=== PATIENT | male | born 1945 | race Caucasian/White ===

== ENCOUNTER → 2017-02-26 | Outpatient (CLI) | payer MEDICARE ==
--- NOTE | 2017-02-26 16:08 | XR ---
Abdomen HISTORY: Bilateral kidney stones, urinary tract infection View of the abdomen is submitted and correlated to prior CT urogram dated 09/03/2011 Multiple renal calculi are present over the right kidney, there are at least 7 calculi present. The l argest is a partial staghorn calculus in the midpole level and measures approximately 1.4 x 1.6 cm in size. Lower pole calculus measures approximately 5 mm. Additional calculi in the midpole measure jennifer roximately 6 to 7 mm and 3 to 4 mm. Surgical clips are present in the right upper quadrant. Probable phleboliths in the pelvis. Lung bases not entirely included on the exam. Question compression deformi ties in the thoracic lumbar spine, degenerative disc changes also present. IMPRESSION: Multiple right-sided renal calculi as described. Suspect osteoporotic compression fractur es. Postop changes.
== END | disposition home or self-care (01) ==
LOC: RADXRMAIN 14:38
PROVIDERS: ATTEND Physician Assistant
DX: N20.0 Calculus of kidney (principal); Z98.890 Other specified postprocedural states
CPT/HCPCS: 74000

== ENCOUNTER → 2021-09-18 | Outpatient (CLI) | payer MEDICARE ==
[2021-09-18 18:36] LABS: HCT 36.6 % (39.6-50.0); MCH 31.4 pg (27.0-32.0); MCHC 32.8 g/dL (32.0-37.0); MCV 95.8 fL (80.0-97.0); Mean Platelet Volume 10.4 fL (9.5-12.2); NRBC Per 100 WBC 0 /100 WBCS (0.0-0.0); Platelet Count 264 X 10*3/uL (140-440); RBC 3.82 X 10*6/uL (4.40-5.60); RDW 13.5 % (11.5-14.5); WBC 10.12 X 10*3/uL (4.50-10.00)
[2021-09-18 18:47] LABS: ALT 23 U/L (10-49); AST 21 U/L (14-35); African American GFR (CKD) 98.5 (60.0-200.0); BUN/Creat Ratio 19.19 Ratio (12.00-20.00); Blood Urea Nitrogen 15.6 mg/dL (9.0-27.0); Calcium 9.2 mg/dL (8.7-10.3); Carbon Dioxide 27.1 mmol/L (20.0-27.5); Chloride 100 mmol/L (96-109); Chol/HDL Ratio 3.29 Ratio; Glucose 96 mg/dL (70-110); LDL Cholesterol,Calculated 130.7 mg/dL (0.0-131.0); Potassium 4.4 mmol/L (3.5-5.5); Sodium 138 mmol/L (135-145)
== END | disposition home or self-care (01) ==
LOC: LABWHC1 10:24
PROVIDERS: ATTEND Internal Medicine Interventional Cardiology
DX: I25.810 Atherosclerosis of coronary artery bypass graft(s) without angina pectoris (principal); E78.2 Mixed hyperlipidemia
CPT/HCPCS: 36415; 80048; 80061; 84450; 84460; 85027

== ENCOUNTER 2022-02-11 20:10 | Inpatient (IN) | payer MEDICARE ==
[2022-02-11 21:10] LABS: Basophils % (A) 0 %; Eosinophils % (A) 0 %; HGB 9.1 gm/dL (13.0-17.5); Lymphocytes # (A) 1.2 k/uL (1.0-4.8); Lymphocytes % (A) 13 %; MCH 33.3 pg (25.0-35.0); MCHC 33.8 g/dL (31.0-37.0); MCV 98.5 fL (80.0-100.0); Macrocytosis Slight; Mean Platelet Volume 9.3; Monocytes # (A) 0.5 k/uL (0-1.0); Monocytes % (A) 6 %; Neutrophils # (A) 7.2 k/uL (1.3-7.7); Neutrophils % (A) 80 %; Platelet Count 229 k/uL (150-450); RBC 2.74 m/uL (4.30-5.90); RDW 15.3 % (11.5-15.5); WBC 9.1 k/uL (3.8-10.6)
[2022-02-11 21:24] LABS: Albumin 3.6 g/dL (3.5-5.0); Calcium 8.3 mg/dL (8.4-10.2); Potassium 4.3 mmol/L (3.5-5.1); Total Bilirubin 0.5 mg/dL (0.2-1.3); Total Protein 6.6 g/dL (6.3-8.2)
[2022-02-11] MEDS ORDERED: HEPARIN SODIUM 1,000 UN/ML (10ML VL) IV ONE (21:29)
[2022-02-11] MEDS ORDERED: HEPARIN SODIUM 1,000 UN/ML (10ML VL) IV PRN (21:29)
[2022-02-11] MEDS ORDERED: HEPARIN SOD,PORK IN 0.45% NACL 25,000 UNIT in 0.45% NACL 1 250ML.BAG IV SCH (21:30)
[2022-02-11 21:39] LABS: INR 1.1 (<1.2); Prothrombin Time 11.7 sec (9.0-12.0)
[2022-02-11 21:40] LABS: Partial Thromboplastin Time 33.1 sec (22.0-30.0)
--- NOTE | 2022-02-11 21:42 | XR ---
EXAMINATION TYPE: XR chest 2V DATE OF EXAM: 02/11/2022 9:24 PM COMPARISON: none TECHNIQUE: XR chest 2V Frontal and lateral views of the chest. CLINICAL INDICATION:Male, 76 years old with history of difficulty breathing; FINDINGS: Lungs/Pleura: Increased airspace opacities projecting the heart and over the spine on lateral. There is no evidence of pleural effusion, , or pneumothorax. Pulmonary vascularity: Pulmonary vascular congestion. Heart/mediastinum: Cardiomediastinal silhouette is enlarged. Musculoskeletal: No acute osseous pathology. Midline sternotomy wires are noted. IMPRESSION: Airspace opacities projecting the heart and more posteriorly correlate for pneumonia. A component of pulmonary vascular congestion may also be present. Correlate with BNP for congestive heart failure.
[2022-02-11] MEDS ORDERED: FUROSEMIDE 10 MG/ML 4 ML VIAL IV STA (22:19)
[2022-02-11] MEDS ORDERED: cefTRIAXone IN SWFI 1,000 MG/10 ML SYRINGE IVP STA (22:30)
[2022-02-11] MEDS ORDERED: NALOXONE 0.4 MG/ML 1 ML VIAL IV PRN (23:19)
[2022-02-11] MEDS ORDERED: IPRATROPIUM-ALBUTEROL 3 ML NEB INHALATION STA (23:24)
--- NOTE | 2022-02-11 23:43 | ED ---
General Adult HPI - General Chief complaint: Shortness of Breath Stated complaint: CHF, transfer Time Seen by Provider: 02/11/22 20:42 Source: patient, EMS Mode of arrival: EMS Limitations: no limitations - History of Present Illness Initial comments: Patient is a 76-year-old male hypertension, diabetes, and enlarged prostate presenting as a transfer from [facility] for CHF and acute kidney failure. Patient states that for the last 3 months he has had worsening shortness of breath, states that he is breathless after walking short periods of time and also while laying down. He admits to some intermittent chest pain. He admits to increased cough, no sputum production. No fever or chills. He denies abdominal pain, hemoptysis, hematochezia, melena. Patient is still producing urine, states that he has been urinating less frequently than usual. - Related Data Home Medications Medication Instructions Recorded Confirmed Acetaminophen [Tylenol 8 Hour] 650 mg PO Q6H PRN 02/11/22 02/11/22 Aspirin EC [Ecotrin Low Dose] 81 mg PO DAILY 02/11/22 02/11/22 Azelastine HCl 2 spray NASAL BID 02/11/22 02/11/22 Famotidine [Pepcid] 20 mg PO DAILY 02/11/22 02/11/22 HYDROcodone/APAP 5-325MG [[place] 1 tab PO BID PRN 02/11/22 02/11/22 5-325] Meclizine HCl [Antivert] 25 mg PO DAILY PRN 02/11/22 02/11/22 Metoprolol Tartrate [Lopressor] 50 mg PO BID 02/11/22 02/11/22 Nitroglycerin Sl Tabs [Nitrostat] 0.4 mg SL Q5M PRN 02/11/22 02/11/22 Potassium Chloride ER [K-Dur 10] 10 meq PO DAILY 02/11/22 02/11/22 Pravastatin Sodium [Pravachol] 40 mg PO HS 02/11/22 02/11/22 Repaglinide [Prandin] 1 mg PO HS 02/11/22 02/11/22 Tamsulosin HCl [Flomax] 0.4 mg PO BID 02/11/22 02/11/22 allopurinoL [Zyloprim] 100 mg PO BID 02/11/22 02/11/22 amLODIPine [Norvasc] 5 mg PO DAILY 02/11/22 02/11/22 hydroCHLOROthiazide [Hydrodiuril] 25 mg PO DAILY 02/11/22 02/11/22 metFORMIN HCL [Glucophage] 1,000 mg PO BID 02/11/22 02/11/22 Allergies Allergy/AdvReac Type Severity Reaction Status Date / Time duloxetine [From Cymbalta] Allergy Rash/Hives Verified 02/11/22 21:57 enalaprilat [From Vasotec] Allergy Unknown Verified 02/11/22 21:57 levofloxacin [From Levaquin] Allergy Rash/Hives Verified 02/11/22 21:57 saxagliptin [From Onglyza] Allergy Rash/Hives Verified 02/11/22 21:57 sulfamethoxazole Allergy Rash/Hives Verified 02/11/22 21:57 [From Bactrim] trimethoprim [From Bactrim] Allergy Rash/Hives Verified 02/11/22 21:57 Review of Systems ROS Statement: Those systems with pertinent positive or pertinent negative responses have been documented in the HPI. ROS Other: All systems not noted in ROS Statement are negative. Past Medical History Smoking Status: Never smoker Past Alcohol Use History: None Reported Past Drug Use History: None Reported General Exam Limitations: no limitations General appearance: alert, in distress (Short of breath) Head exam: Present: atraumatic, normocephalic, normal inspection Eye exam: Present: normal appearance Neck exam: Present: normal inspection Respiratory exam: Present: rales. Absent: wheezes, rhonchi, stridor Cardiovascular Exam: Present: regular rate, normal rhythm, normal heart sounds. Absent: systolic murmur, diastolic murmur, rubs, gallop, clicks Extremities exam: Absent: pedal edema Neurological exam: Present: alert, oriented X3, CN II-XII intact Psychiatric exam: Present: normal affect, normal mood Skin exam: Present: warm, dry, intact, normal color. Absent: rash Course Vital Signs 02/11/22 02/11/22 02/12/22 20:16 22:38 00:29 Temperature 97.7 F Pulse Rate 93 87 98 Respiratory 28 H 22 Rate Blood Pressure 157/84 149/78 Blood Pressure [Right Arm] O2 Sat by Pulse 91 L 93 L Oximetry Fraction of Inspired Oxygen (FIO2) 02/12/22 02/12/22 02/12/22 00:37 00:39 01:00 Temperature Pulse Rate 94 Respiratory 24 Rate Blood Pressure Blood Pressure 154/91 [Right Arm] O2 Sat by Pulse 100 Oximetry Fraction of 70 70 Inspired Oxygen (FIO2) 02/12/22 02/12/22 02:19 02:43 Temperature Pulse Rate Respiratory 23 Rate Blood Pressure Blood Pressure 145/89 [Right Arm] O2 Sat by Pulse 97 Oximetry Fraction of 50 50 Inspired Oxygen (FIO2) EKG Findings - EKG Comments: EKG Findings:: Atrial fibrillation rate of 88. QRS 89. QT 394. QTC 440. Left axis deviation. EKG was also interpreted by my attending Dr. Rapp. Medical Decision Making - Medical Decision Making Patient is a 76-year-old male presenting with chief complaint of difficulty breathing. Patient was transferred from [facility] for CHF and acute kidney failure, as majority of his physicians and specialists work out of [facility]. On examination patient is swallowing increased respiratory effort, rales are heard on auscultation. X-ray shows pulmonary vascular congestion and airspace opacities projecting over the heart and more po steriorly. BNP 40973. Clinical picture correlates with CHF, however patient is given one dose of Rocephin in the event that he also has concurrent pneumonia. Troponin 0.193, may be due to acute renal failure, BUN 65 creatinine 7.16 and GFR of 7. Patient is still producing urine, states that he urinated just prior to coming here. EKG showed atrial fibrillation, patient denies any history of A. fib or current use of blood thinners. Patient was started on heparin. Patient was started on BiPAP and given DuoNeb treatment. Calloway catheter was ordered to monitor output, patient is refusing at this time. Patient will be admitted for CHF and acute renal failure, I spoke with Leonora Benavides from [facility]. I spoke with Dr. Rodriguez who advised calloway catheter if retaining and will be on consult. I discussed this case in detail with my attending Dr. Rapp - Lab Data Result diagrams: 02/11/22 21:03 02/11/22 21:03 Lab Results 02/11/22 02/11/22 02/11/22 Range/Units 21:03 21:03 21:03 WBC 9.1 (3.8-10.6) k/uL RBC 2.74 L (4.30-5.90) m/uL Hgb 9.1 L (13.0-17.5) gm/dL Hct 27.0 L (39.0-53.0) % MCV 98.5 (80.0-100.0) fL MCH 33.3 (25.0-35.0) pg MCHC 33.8 (31.0-37.0) g/dL RDW 15.3 (11.5-15.5) % Plt Count 229 (150-450) k/uL MPV 9.3 Neutrophils % 80 % Lymphocytes % 13 % Monocytes % 6 % Eosinophils % 0 % Basophils % 0 % Neutrophils # 7.2 (1.3-7.7) k/uL Lymphocytes # 1.2 (1.0-4.8) k/uL Monocytes # 0.5 (0-1.0) k/uL Eosinophils # 0.0 (0-0.7) k/uL Basophils # 0.0 (0-0.2) k/uL Macrocytosis Slight PT 11.7 (9.0-12.0) sec INR 1.1 (<1.2) APTT 33.1 H (22.0-30.0) sec Sodium 139 (137-145) mmol/L Potassium 4.3 (3.5-5.1) mmol/L Chloride 110 H (98-107) mmol/L Carbon Dioxide 18 L (22-30) mmol/L Anion Gap 11 mmol/L BUN 65 H (9-20) mg/dL Creatinine 7.16 H* (0.66-1.25) mg/dL Est GFR (CKD-EPI)AfAm 8 (>60 ml/min/1.73 sqM) Est GFR (CKD-EPI)NonAf 7 (>60 ml/min/1.73 sqM) Glucose 160 H (74-99) mg/dL Lactic Ac Sepsis Rflx Plasma Lactic Acid Sawyer (0.7-2.0) mmol/L Calcium 8.3 L (8.4-10.2) mg/dL Magnesium 2.0 (1.6-2.3) mg/dL Total Bilirubin 0.5 (0.2-1.3) mg/dL AST 16 L (17-59) U/L ALT 15 (4-49) U/L Alkaline Phosphatase 54 (38-126) U/L Troponin I (0.000-0.034) ng/mL NT-Pro-B Natriuret Pep pg/mL Total Protein 6.6 (6.3-8.2) g/dL Albumin 3.6 (3.5-5.0) g/dL 02/11/22 02/11/22 02/11/22 Range/Units 21:03 21:03 21:03 WBC (3.8-10.6) k/uL RBC (4.30-5.90) m/uL Hgb (13.0-17.5) gm/dL Hct (39.0-53.0) % MCV (80.0-100.0) fL MCH (25.0-35.0) pg MCHC (31.0-37.0) g/dL RDW (11.5-15.5) % Plt Count (150-450) k/uL MPV Neutrophils % % Lymphocytes % % Monocytes % % Eosinophils % % Basophils % % Neutrophils # (1.3-7.7) k/uL Lymphocytes # (1.0-4.8) k/uL Monocytes # (0-1.0) k/uL Eosinophils # (0-0.7) k/uL Basophils # (0-0.2) k/uL Macrocytosis PT (9.0-12.0) sec INR (<1.2) APTT (22.0-30.0) sec Sodium (137-145) mmol/L Potassium (3.5-5.1) mmol/L Chloride (98-107) mmol/L Carbon Dioxide (22-30) mmol/L Anion Gap mmol/L BUN (9-20) mg/dL Creatinine (0.66-1.25) mg/dL Est GFR (CKD-EPI)AfAm (>60 ml/min/1.73 sqM) Est GFR (CKD-EPI)NonAf (>60 ml/min/1.73 sqM) Glucose (74-99) mg/dL Lactic Ac Sepsis Rflx Plasma Lactic Acid Sawyer 2.1 H* (0.7-2.0) mmol/L Calcium (8.4-10.2) mg/dL Magnesium (1.6-2.3) mg/dL Total Bilirubin (0.2-1.3) mg/dL AST (17-59) U/L ALT (4-49) U/L Alkaline Phosphatase (38-126) U/L Troponin I 0.193 H* (0.000-0.034) ng/mL NT-Pro-B Natriuret Pep 39189 pg/mL Total Protein (6.3-8.2) g/dL Albumin (3.5-5.0) g/dL 02/11/22 Range/Units 21:38 WBC (3.8-10.6) k/uL RBC (4.30-5.90) m/uL Hgb (13.0-17.5) gm/dL Hct (39.0-53.0) % MCV (80.0-100.0) fL MCH (25.0-35.0) pg MCHC (31.0-37.0) g/dL RDW (11.5-15.5) % Plt Count (150-450) k/uL MPV Neutrophils % % Lymphocytes % % Monocytes % % Eosinophils % % Basophils % % Neutrophils # (1.3-7.7) k/uL Lymphocytes # (1.0-4.8) k/uL Monocytes # (0-1.0) k/uL Eosinophils # (0-0.7) k/uL Basophils # (0-0.2) k/uL Macrocytosis PT (9.0-12.0) sec INR (<1.2) APTT (22.0-30.0) sec Sodium (137-145) mmol/L Potassium (3.5-5.1) mmol/L Chloride (98-107) mmol/L Carbon Dioxide (22-30) mmol/L Anion Gap mmol/L BUN (9-20) mg/dL Creatinine (0.66-1.25) mg/dL Est GFR (CKD-EPI)AfAm (>60 ml/min/1.73 sqM) Est GFR (CKD-EPI)NonAf (>60 ml/min/1.73 sqM) Glucose (74-99) mg/dL Lactic Ac Sepsis Rflx Y Plasma Lactic Acid Sawyer (0.7-2.0) mmol/L Calcium (8.4-10.2) mg/dL Magnesium (1.6-2.3) mg/dL Total Bilirubin (0.2-1.3) mg/dL AST (17-59) U/L ALT (4-49) U/L Alkaline Phosphatase (38-126) U/L Troponin I (0.000-0.034) ng/mL NT-Pro-B Natriuret Pep pg/mL Total Protein (6.3-8.2) g/dL Albumin (3.5-5.0) g/dL Disposition Clinical Impression: Congestive heart failure, Acute renal failure, New onset atrial fibrillation Disposition: ADMITTED IP TO THIS HOSP Condition: Serious Time of Disposition: 00:56 Decision to Admit Reason: Admit from EC Decision Date: 02/11/22 Decision Time: 23:20
[2022-02-12] MEDS ORDERED: LORazepam 2 MG/ML INJ IV STA (00:27)
[2022-02-12 01:06] LABS: Appearance,Urine Clear (Clear); Bacteria,Urine Rare /hpf; Bilirubin,Urine Negative (Negative); Blood,Urine Trace (Negative); Color,Urine Light Yellow; Glucose,Urine (UA) Trace (Negative); Ketones,Urine Negative (Negative); Leukocyte Esterase,Urine Negative (Negative); Mucus,Urine Rare /hpf; Nitrite,Urine Negative (Negative); PH, Urine 5.5 (5.0-8.0); Protein,Urine 2+ (Negative); RBC,Urine 1 /hpf (0-5); Specific Gravity,Urine 1.016 (1.001-1.035); Squamous Epithelial Cell,Urine <1 /hpf (0-4); Urobilinogen,Urine <2.0 mg/dL (<2.0); WBC,Urine 1 /hpf (0-5)
[2022-02-12 04:34] LABS: INR 1.1 (<1.2); Partial Thromboplastin Time 84.4 sec (22.0-30.0); Prothrombin Time 11.6 sec (9.0-12.0)
[2022-02-12 04:45] LABS: Basophils % (A) 0 %; Eosinophils % (A) 0 %; HCT 25.3 % (39.0-53.0); HGB 8.5 gm/dL (13.0-17.5); Lymphocytes # (A) 0.7 k/uL (1.0-4.8); Lymphocytes % (A) 8 %; MCH 33.7 pg (25.0-35.0); MCHC 33.6 g/dL (31.0-37.0); MCV 100.3 fL (80.0-100.0); Macrocytosis Slight; Mean Platelet Volume 8.9; Monocytes # (A) 0.3 k/uL (0-1.0); Monocytes % (A) 4 %; Neutrophils % (A) 87 %; Platelet Count 194 k/uL (150-450); RBC 2.52 m/uL (4.30-5.90)
[2022-02-12] MEDS ORDERED: hydroCHLOROthiazide 25 MG TAB PO SCH (09:00)
[2022-02-12] MEDS: METOPROLOL TARTRATE 50 MG TAB PO SCH ×2 (09:03→20:46)
[2022-02-12] MEDS: amLODIPine 5 MG TAB PO SCH (09:03)
[2022-02-12] MEDS: FUROSEMIDE 10 MG/ML 4 ML VIAL IV SCH (09:30)
--- NOTE | 2022-02-12 10:15 | P.CRDCN ---
History of Present Illness Consult date: 02/12/22 History of present illness: HISTORY OF PRESENT ILLNESS: This is a 76 year with a past medical history significant for coronary artery disease with previous CABG, moderate aortic regurgitation, hypertension, hyperlipidemia, diabetes, and chronic kidney disease. Patient follows in the office with Dr. Cortés. We have been asked to see the patient in consultation for CHF and elevated troponin. Patient examined at the bedside. Patient reports having progressive shortness of breath for the past two months which prompted him to to come to the ER. Patient denies any chest pain or pressure. He is currently on a bipap and states his breathing is improved since coming to the hospital. He was found to be in acute renal failure with a creatinine of 7.16. He reports his baseline is around 3. Vascular has been consulted for HD access. Vital signs are stable. Telemetry reveals sinus mechanism. * EKG reveals sinus mechanism with PACs. No evidence of atrial fibrillation. * Chest xray airspace opacities projecting the heart and more posteriorly corre late for pneumonia. A component of pulmonary vascular congestion may also be present. * Laboratory data: WBC 8.0. Hemoglobin 8.5. Platelet count 194. Sodium 139. Potassium 4.3. BUN 65. Creatinine 7.16. Troponin 0.193. ProBNP 70,200. * Current home cardiac medications include hydrochlorothiazide 25 mg daily, amlodipine 5 mg daily, metoprolol tartrate 50 mg twice a day, aspirin 81 mg daily, Pravachol 40 mg at night * Most recent echocardiogram obtained in June 2021 revealed ejection fraction 55%, moderate aortic regurgitation, moderate mitral regurgitation, mild to moderate tricuspid regurgitation * Patient underwent Lexiscan stress test in June 2021 which was negative for acute ischemia REVIEW OF SYSTEMS: At the time of my exam: CONSTITUTIONAL: Denies fever or chills. HEENT: Denies blurred vision, vision changes, or eye pain. Denies hemoptysis CARDIOVASCULAR: Denies chest pain. Denies orthopnea. Denies PND. Denies palpitations RESPIRATORY: Denies shortness of breath. GASTROINTESTINAL: Denies abdominal pain. Denies nausea or vomiting. HEMATOLOGIC: Denies bleeding disorders. GENITOURINARY: Denies any blood in urine. SKIN: Denies pruitis. Denies rash. PHYSICAL EXAM: VITAL SIGNS: Reviewed. GENERAL: Well-developed in no acute distress. HEENT: Head is normocephalic. Pupils are equal, round. Sclerae anicteric. Mucous membranes of the mouth are moist. Neck supple. No JVD or thyromegaly LUNGS: Respirations even and unlabored. Lungs diminished. HEART: Regular rate and rhythm. S1 and S2 heard. + systolic murmur. ABDOMEN: Soft. Nondistended. Nontender. EXTREMITIES: Normal range of motion. No clubbing or cyanosis. Peripheral pulses intact. No lower extremity edema NEUROLOGIC: Awake and alert. Oriented x 3. ASSESSMENT: Shortness of breath Acute hypoxic respiratory failure Acute on chronic kidney disease Fluid overload secondary to above Atrial fibrillation, RULED OUT, ekg reveals sinus mechanism with PACS Abnormal troponin, ACS ruled out, likely secondary to acute renal failure Coronary artery disease with previous CABG Valvular heart disease Hypertension Hyperlipidemia Diabetes PLAN: No need to repeat echo as this was performed in the office in June 2021 Hold HCTZ Resume additional home cardiac medications Patient started on IV lasix per nephrology Discontinue IV heparin as no evidence of atrial fibrillation is noted Further recommendations pending patient course Nurse practitioner note has been reviewed by physician. Signing provider agrees with the documented findings, assessment, and plan of care. Past Medical History Smoking Status: Never smoker Past Alcohol Use History: None Reported Past Drug Use History: None Reported Medications and Allergies Home Medications Medication Instructions Recorded Confirmed Type Acetaminophen [Tylenol 8 Hour] 650 mg PO Q6H PRN 02/11/22 02/11/22 History Aspirin EC [Ecotrin Low Dose] 81 mg PO DAILY 02/11/22 02/11/22 History Azelastine HCl 2 spray NASAL BID 02/11/22 02/11/22 History Famotidine [Pepcid] 20 mg PO DAILY 02/11/22 02/11/22 History HYDROcodone/APAP 5-325MG [[place] 1 tab PO BID PRN 02/11/22 02/11/22 History 5-325] Meclizine HCl [Antivert] 25 mg PO DAILY PRN 02/11/22 02/11/22 History Metoprolol Tartrate [Lopressor] 50 mg PO BID 02/11/22 02/11/22 History Nitroglycerin Sl Tabs [Nitrostat] 0.4 mg SL Q5M PRN 02/11/22 02/11/22 History Potassium Chloride ER [K-Dur 10] 10 meq PO DAILY 02/11/22 02/11/22 History Pravastatin Sodium [Pravachol] 40 mg PO HS 02/11/22 02/11/22 History Repaglinide [Prandin] 1 mg PO HS 02/11/22 02/11/22 History Tamsulosin HCl [Flomax] 0.4 mg PO BID 02/11/22 02/11/22 History allopurinoL [Zyloprim] 100 mg PO BID 02/11/22 02/11/22 History amLODIPine [Norvasc] 5 mg PO DAILY 02/11/22 02/11/22 History hydroCHLOROthiazide [Hydrodiuril] 25 mg PO DAILY 02/11/22 02/11/22 History metFORMIN HCL [Glucophage] 1,000 mg PO BID 02/11/22 02/11/22 History Allergies Allergy/AdvReac Type Severity Reaction Status Date / Time duloxetine [From Cymbalta] Allergy Rash/Hives Verified 02/11/22 21:57 enalaprilat [From Vasotec] Allergy Unknown Verified 02/11/22 21:57 levofloxacin [From Levaquin] Allergy Rash/Hives Verified 02/11/22 21:57 saxagliptin [From Onglyza] Allergy Rash/Hives Verified 02/11/22 21:57 sulfamethoxazole Allergy Rash/Hives Verified 02/11/22 21:57 [From Bactrim] trimethoprim [From Bactrim] Allergy Rash/Hives Verified 02/11/22 21:57 Physical Exam Vitals: Vital Signs Temp Pulse Resp BP BP Pulse Ox FiO2 02/12/22 09:00 72 19 153/95 97 02/12/22 08:00 91 L 02/12/22 07:20 50 02/12/22 05:59 56 L 18 159/87 98 02/12/22 02:43 23 145/89 97 50 02/12/22 02:19 50 02/12/22 01:00 24 154/91 100 70 02/12/22 00:39 70 02/12/22 00:37 94 02/12/22 00:29 98 02/11/22 22:38 97.7 F 87 22 149/78 93 L 02/11/22 20:16 93 28 H 157/84 91 L Intake and Output 02/11/22 02/12/22 02/12/22 22:59 06:59 14:59 Intake Total 46.449 Balance 46.449 Intake: Intake, IV Titration 46.449 Amount Heparin Sod,Pork in 0.45% 46.449 NaCl 25,000 unit In 0.45 % NaCl 1 250ml.bag @ 12 UNITS/KG/HR 7.512 mls/hr IV .Q24H [facility] Rx#: [id number] Other: Weight 62.596 kg Results 02/12/22 03:26 02/11/22 21:03 Cardiac Enzymes 02/11/22 02/11/22 Range/Units 21:03 21:03 AST 16 L (17-59) U/L Troponin I 0.193 H* (0.000-0.034) ng/mL Coagulation 02/11/22 02/12/22 Range/Units 21:03 03:26 PT 11.7 11.6 (9.0-12.0) sec APTT 33.1 H 84.4 H (22.0-30.0) sec CBC 02/11/22 02/12/22 Range/Units 21:03 03:26 WBC 9.1 8.0 (3.8-10.6) k/uL RBC 2.74 L 2.52 L (4.30-5.90) m/uL Hgb 9.1 L 8.5 L (13.0-17.5) gm/dL Hct 27.0 L 25.3 L (39.0-53.0) % Plt Count 229 194 (150-450) k/uL Comprehensive Metabolic Panel 02/11/22 Range/Units 21:03 Sodium 139 (137-145) mmol/L Potassium 4.3 (3.5-5.1) mmol/L Chloride 110 H (98-107) mmol/L Carbon Dioxide 18 L (22-30) mmol/L BUN 65 H (9-20) mg/dL Creatinine 7.16 H* (0.66-1.25) mg/dL Glucose 160 H (74-99) mg/dL Calcium 8.3 L (8.4-10.2) mg/dL AST 16 L (17-59) U/L ALT 15 (4-49) U/L Alkaline Phosphatase 54 (38-126) U/L Total Protein 6.6 (6.3-8.2) g/dL Albumin 3.6 (3.5-5.0) g/dL Current Medications Generic Name Dose Route Start Last Admin Trade Name Freq PRN Reason Stop Dose Admin Amlodipine Besylate 5 mg 02/12/22 09:00 02/12/22 09:03 Amlodipine 5 Mg Tab PO 5 mg DAILY JUMA Administration Furosemide 40 mg 02/12/22 09:30 02/12/22 09:30 Furosemide 10 Mg/Ml 4 Ml Vial IV 40 mg DAILY JUMA Administration Heparin Sodium (Porcine) 5,000 unit 02/12/22 16:00 Heparin Sodium,Porcine/Pf 5,000 Unit/0.5 Ml Syringe SQ Q8HR JUMA Metoprolol Tartrate 50 mg 02/12/22 09:00 02/12/22 09:03 Metoprolol Tartrate 50 Mg Tab PO 50 mg BID JUMA Administration Naloxone HCl 0.2 mg 02/11/22 23:19 Naloxone 0.4 Mg/Ml 1 Ml Vial IV Q2M PRN Opioid Reversal Pravastatin Sodium 40 mg 02/12/22 21:00 Pravastatin Sodium 40 Mg Tab PO HS [facility] Intake and Output 02/11/22 02/12/22 02/12/22 22:59 06:59 14:59 Intake Total 46.449 Balance 46.449 Intake: Intake, IV Titration 46.449 Amount Heparin Sod,Pork in 0.45% 46.449 NaCl 25,000 unit In 0.45 % NaCl 1 250ml.bag @ 12 UNITS/KG/HR 7.512 mls/hr IV .Q24H [facility] Rx#: [id number] Other: Weight 62.596 kg 02/12/22 03:26 02/11/22 21:03
--- NOTE | 2022-02-12 10:39 | P.NPCON ---
History of Present Illness - Reason for Consult acute renal failure - History of Present Illness Patient is a 76-year-old male with history of coronary artery disease, hypertension, valvular heart disease, type 2 diabetes and CK D stage III with previous creatinine around 1.2 mg/dL in 2015 however we have a creatinine of 0.8 on 09/18/2021. Patient is admitted to the hospital with complaints of shortness of breath and increased weakness. Patient admitted to having had poor urine output for the last few days as outpatient. He denied use of any nonsteroidal anti-inflammatory agents. Blood pressure is not low No REJI inhibitor as noted on home med list. It is reported as an ALLERGY. Serum creatinine was 7.1 this morning. Chest x-ray shows pulmonary vascular congestion. Patient was on BiPAP, currently on 6 L by nasal cannula. Review of Systems As per HPI Past Medical History Smoking Status: Never smoker Past Alcohol Use History: None Reported Past Drug Use History: None Reported Medications and Allergies Home Medications Medication Instructions Recorded Confirmed Type Acetaminophen [Tylenol 8 Hour] 650 mg PO Q6H PRN 02/11/22 02/11/22 History Aspirin EC [Ecotrin Low Dose] 81 mg PO DAILY 02/11/22 02/11/22 History Azelastine HCl 2 spray NASAL BID 02/11/22 02/11/22 History Famotidine [Pepcid] 20 mg PO DAILY 02/11/22 02/11/22 History HYDROcodone/APAP 5-325MG [[place] 1 tab PO BID PRN 02/11/22 02/11/22 History 5-325] Meclizine HCl [Antivert] 25 mg PO DAILY PRN 02/11/22 02/11/22 History Metoprolol Tartrate [Lopressor] 50 mg PO BID 02/11/22 02/11/22 History Nitroglycerin Sl Tabs [Nitrostat] 0.4 mg SL Q5M PRN 02/11/22 02/11/22 History Potassium Chloride ER [K-Dur 10] 10 meq PO DAILY 02/11/22 02/11/22 History Pravastatin Sodium [Pravachol] 40 mg PO HS 02/11/22 02/11/22 History Repaglinide [Prandin] 1 mg PO HS 02/11/22 02/11/22 History Tamsulosin HCl [Flomax] 0.4 mg PO BID 02/11/22 02/11/22 History allopurinoL [Zyloprim] 100 mg PO BID 02/11/22 02/11/22 History amLODIPine [Norvasc] 5 mg PO DAILY 02/11/22 02/11/22 History hydroCHLOROthiazide [Hydrodiuril] 25 mg PO DAILY 02/11/22 02/11/22 History metFORMIN HCL [Glucophage] 1,000 mg PO BID 02/11/22 02/11/22 History Allergies Allergy/AdvReac Type Severity Reaction Status Date / Time duloxetine [From Cymbalta] Allergy Rash/Hives Verified 02/11/22 21:57 enalaprilat [From Vasotec] Allergy Unknown Verified 02/11/22 21:57 levofloxacin [From Levaquin] Allergy Rash/Hives Verified 02/11/22 21:57 saxagliptin [From Onglyza] Allergy Rash/Hives Verified 02/11/22 21:57 sulfamethoxazole Allergy Rash/Hives Verified 02/11/22 21:57 [From Bactrim] trimethoprim [From Bactrim] Allergy Rash/Hives Verified 02/11/22 21:57 Physical Exam Vitals: Vital Signs Temp Pulse Resp BP BP Pulse Ox FiO2 02/12/22 09:00 72 19 153/95 97 02/12/22 08:00 91 L 02/12/22 07:20 50 02/12/22 05:59 56 L 18 159/87 98 02/12/22 02:43 23 145/89 97 50 02/12/22 02:19 50 02/12/22 01:00 24 154/91 100 70 02/12/22 00:39 70 02/12/22 00:37 94 02/12/22 00:29 98 02/11/22 22:38 97.7 F 87 22 149/78 93 L 02/11/22 20:16 93 28 H 157/84 91 L Intake and Output 02/11/22 02/12/22 02/12/22 22:59 06:59 14:59 Intake Total 46.449 50 Output Total 100 Balance 46.449 -50 Intake: Intake, IV Titration 46.449 Amount Heparin Sod,Pork in 0.45% 46.449 NaCl 25,000 unit In 0.45 % NaCl 1 250ml.bag @ 12 UNITS/KG/HR 7.512 mls/hr IV .Q24H [facility] Rx#: [id number] Oral 50 Output: Urine 100 Other: # Voids 1 Weight 62.596 kg Patient is comfortable awake, mild shortness of breath noted Examination of the heart S1 and S2 Examination of the lungs bilateral breath sounds are heard decreased breath sounds at the bases Abdomen is soft nontender Examination of the lower extremities shows no significant edema 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 Acute kidney injury rule out urine retention. If there is no evidence of obstructive uropathy this is mostly ATN. Check bladder scan and check ultrasound of the kidneys. UA shows 2+ protein and trace blood. No nephrotoxic agents on board currently 2. Lactic acidosis 3. Metabolic acidosis associated with renal failure and lactic acidosis, non- gap 4. History of CK D stage III secondary to nephrosclerosis previous creatinine about 1.2 however we have a creatinine of 0.8 on 09/18/2021 5. Anemia rule out iron deficiency 6. Possible pneumonia Plan: IV Lasix 1 Check bladder scan and ultrasound of the kidneys to rule out obstructive uropathy If patient does not have significant urine output with diuretics he will need hemodialysis. We will continue to monitor. Repeat labs today next Thank you for the consultation. We will continue to follow the patient with you during his hospitalization
--- NOTE | 2022-02-12 11:12 | US ---
EXAMINATION TYPE: US kidneys/renal and bladder DATE OF EXAM: 02/12/2022 COMPARISON: NONE CLINICAL HISTORY: KATIE. KATIE, h/o renal stones EXAM MEASUREMENTS: Right Kidney: 10.6 x 6.0 x 6.0 cm Left Kidney: 12.5 x 5.7 x 6.3 cm Right Kidney: mid pole stone = 2.3cm, multiple cysts, largest is exophytic and is complex = 2.5 x 2. 6 x 2.7cm Left Kidney: stone seen, midpole = 1.1cm, multiple cysts, exophytic cyst = 1.7 x 1.6 x 1.2cm Bladder: over distended No hydronephrosis. Renal cortex is echogenic. Prostate prominent. IMPRESSION: 1. Bilateral nonobstructing nephrolithiasis. 2. There is a complex cystic lesion involving the right kidney measuring 2.7 cm. Neoplasm in the diff erential diagnosis recommend MRI. 3. Renal cortex is echogenic correlate for chronic medical renal disease.
[2022-02-12] MEDS ORDERED: ONDANSETRON 4 MG/2 ML VIAL IVP PRN (11:14)
--- NOTE | 2022-02-12 11:14 | P.HPIM ---
History of Present Illness This is a pleasant 76 years old male with past medical history of diabetes mellitus, hypertension, benign prostatic hypertrophy, hyperlipidemia Patient states that she has been having dyspnea for the last 3 months getting progressively worse over the last 2 weeks till yesterday he could not bear it anymore sided decided to go to [facility]. Also has been having cough with some phlegm unknown color no chest pain. Patient is complaining of from diarrhea and vomiting for the last 3 days with no abdominal pain. Yesterday he has one bout of loose bowel movement with no blood and lytes in color and he vomited twice with no blood as well. Patient denies any dysuria or urgency. He has some dizziness but no headache or weakness or numbness. However patient feels generally weak. Denies smoking alcohol or illicit tracts. It is not on home oxygen. 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 Martin Patient was transferred from [facility] for dyspnea. Vitals currently showing stable blood pressure 153/95. Patient is saturating 97% on BiPAP. Prior to that he was saturating 91-93% on 6 L oxygen via nasal cannula and he was tachypneic Labs here show an unremarkable CBC except for anemia with hemoglobin 8.5. High lactic acid came back to normal Urine analysis showing 2+ protein. Troponin is elevated at 0.19 [place] [id number] creatinine is elevated 7.1. 5 months ago creatinine was normal 0.8. Potassium currently normal formed 0.3 as well as sodium 139. Liver enzymes not significantly elevated. Chest x-ray:Opacity projecting the heart and more posteriorly correlate for pneumonia. A component of pulmonary vascular congestion may also be present. Correlate for CHF EKG showing atrial fibrillation's with controlled rate at 88, mild ST depression in V4 and V5 no other significant ST-T changes Review of Systems Review of systems CONSTITUTIONAL: No fever, no malaise, no fatigue. HEENT: No recent visual problems or hearing problems. Denied any sore throat. CARDIOVASCULAR: No orthopnea, PND, no palpitations, no syncope. PULMONARY: No chest wall tenderness, no hemoptysis. GASTROINTESTINAL: no nausea, no abdominal pain. Normoactive bowel sounds. NEUROLOGICAL: No headaches, no weakness, no numbness. HEMATOLOGICAL: Denies any bleeding or petechiae. GENITOURINARY: Denies any burning micturition, frequency, or urgency. MUSCULOSKELETAL/RHEUMATOLOGICAL: Denies any joint pain, swelling, or any muscle pain. ENDOCRINE: Denies any polyuria or polydipsia. Past Medical History Smoking Status: Never smoker Past Alcohol Use History: None Reported Past Drug Use History: None Reported Medications and Allergies Home Medications Medication Instructions Recorded Confirmed Type Acetaminophen [Tylenol 8 Hour] 650 mg PO Q6H PRN 02/11/22 02/11/22 History Aspirin EC [Ecotrin Low Dose] 81 mg PO DAILY 02/11/22 02/11/22 History Azelastine HCl 2 spray NASAL BID 02/11/22 02/11/22 History Famotidine [Pepcid] 20 mg PO DAILY 02/11/22 02/11/22 History HYDROcodone/APAP 5-325MG [[place] 1 tab PO BID PRN 02/11/22 02/11/22 History 5-325] Meclizine HCl [Antivert] 25 mg PO DAILY PRN 02/11/22 02/11/22 History Metoprolol Tartrate [Lopressor] 50 mg PO BID 02/11/22 02/11/22 History Nitroglycerin Sl Tabs [Nitrostat] 0.4 mg SL Q5M PRN 02/11/22 02/11/22 History Potassium Chloride ER [K-Dur 10] 10 meq PO DAILY 02/11/22 02/11/22 History Pravastatin Sodium [Pravachol] 40 mg PO HS 02/11/22 02/11/22 History Repaglinide [Prandin] 1 mg PO HS 02/11/22 02/11/22 History Tamsulosin HCl [Flomax] 0.4 mg PO BID 02/11/22 02/11/22 History allopurinoL [Zyloprim] 100 mg PO BID 02/11/22 02/11/22 History amLODIPine [Norvasc] 5 mg PO DAILY 02/11/22 02/11/22 History hydroCHLOROthiazide [Hydrodiuril] 25 mg PO DAILY 02/11/22 02/11/22 History metFORMIN HCL [Glucophage] 1,000 mg PO BID 02/11/22 02/11/22 History Allergies Allergy/AdvReac Type Severity Reaction Status Date / Time duloxetine [From Cymbalta] Allergy Rash/Hives Verified 02/11/22 21:57 enalaprilat [From Vasotec] Allergy Unknown Verified 02/11/22 21:57 levofloxacin [From Levaquin] Allergy Rash/Hives Verified 02/11/22 21:57 saxagliptin [From Onglyza] Allergy Rash/Hives Verified 02/11/22 21:57 sulfamethoxazole Allergy Rash/Hives Verified 02/11/22 21:57 [From Bactrim] trimethoprim [From Bactrim] Allergy Rash/Hives Verified 02/11/22 21:57 Physical Exam Vitals: Vital Signs Temp Pulse Resp BP BP Pulse Ox FiO2 02/12/22 09:00 72 19 153/95 97 02/12/22 08:00 91 L 02/12/22 07:20 50 02/12/22 05:59 56 L 18 159/87 98 02/12/22 02:43 23 145/89 97 50 02/12/22 02:19 50 02/12/22 01:00 24 154/91 100 70 02/12/22 00:39 70 02/12/22 00:37 94 02/12/22 00:29 98 02/11/22 22:38 97.7 F 87 22 149/78 93 L 02/11/22 20:16 93 28 H 157/84 91 L Intake and Output 02/11/22 02/12/22 02/12/22 22:59 06:59 14:59 Intake Total 46.449 Balance 46.449 Intake: Intake, IV Titration 46.449 Amount Heparin Sod,Pork in 0.45% 46.449 NaCl 25,000 unit In 0.45 % NaCl 1 250ml.bag @ 12 UNITS/KG/HR 7.512 mls/hr IV .Q24H [facility] Rx#: [id number] Other: Weight 62.596 kg GENERAL: The patient is alert and oriented x3, not in any acute distress. Well developed, well nourished. HEENT: Pupils are round and equally reacting to light. EOMI. No scleral icterus. No conjunctival pallor. Normocephalic, atraumatic. No pharyngeal erythema. No thyromegaly. CARDIOVASCULAR: S1 and S2 present. No murmurs, rubs, or gallops. --PULMONARY: Chest is clear to auscultation, no wheezing , very mild bilateral basal crepitation ABDOMEN: Soft, nontender, nondistended, normoactive bowel sounds. No palpable organomegaly. MUSCULOSKELETAL: No joint swelling or deformity. EXTREMITIES: No cyanosis, clubbing, or pedal edema. NEUROLOGICAL: Gross neurological examination did not reveal any focal deficits. SKIN: No rashes. no petechiae. Results CBC & Chem 7: 02/12/22 03:26 02/11/22 21:03 Labs: Abnormal Lab Results - Last 24 Hours (Table) 02/11/22 02/11/22 02/11/22 Range/Units 21: 21: 21:03 RBC 2.74 L (4.30-5.90) m/uL Hgb 9.1 L (13.0-17.5) gm/dL Hct 27.0 L (39.0-53.0) % MCV (80.0-100.0) fL Lymphocytes # (1.0-4.8) k/uL APTT 33.1 H (22.0-30.0) sec Chloride 110 H (98-107) mmol/L Carbon Dioxide 18 L (22-30) mmol/L BUN 65 H (9-20) mg/dL Creatinine 7.16 H* (0.66-1.25) mg/dL Glucose 160 H (74-99) mg/dL Plasma Lactic Acid Sawyer (0.7-2.0) mmol/L Calcium 8.3 L (8.4-10.2) mg/dL AST 16 L (17-59) U/L Troponin I (0.000-0.034) ng/mL Urine Protein (Negative) Urine Glucose (UA) (Negative) Urine Blood (Negative) Urine Bacteria (None) /hpf Urine Mucus (None) /hpf 02/11/22 02/11/22 02/12/22 Range/Units 21: 21:03 00:26 RBC (4.30-5.90) m/uL Hgb (13.0-17.5) gm/dL Hct (39.0-53.0) % MCV (80.0-100.0) fL Lymphocytes # (1.0-4.8) k/uL APTT (22.0-30.0) sec Chloride (98-107) mmol/L Carbon Dioxide (22-30) mmol/L BUN (9-20) mg/dL Creatinine (0.66-1.25) mg/dL Glucose (74-99) mg/dL Plasma Lactic Acid Sawyer 2.1 H* (0.7-2.0) mmol/L Calcium (8.4-10.2) mg/dL AST (17-59) U/L Troponin I 0.193 H* (0.000-0.034) ng/mL Urine Protein 2+ H (Negative) Urine Glucose (UA) Trace H (Negative) Urine Blood Trace H (Negative) Urine Bacteria Rare H (None) /hpf Urine Mucus Rare H (None) /hpf 02/12/22 02/12/22 02/12/22 Range/Units 00:35 03:26 03:26 RBC 2.52 L (4.30-5.90) m/uL Hgb 8.5 L (13.0-17.5) gm/dL Hct 25.3 L (39.0-53.0) % MCV 100.3 H (80.0-100.0) fL Lymphocytes # 0.7 L (1.0-4.8) k/uL APTT 84.4 H (22.0-30.0) sec Chloride (98-107) mmol/L Carbon Dioxide (22-30) mmol/L BUN (9-20) mg/dL Creatinine (0.66-1.25) mg/dL Glucose (74-99) mg/dL Plasma Lactic Acid Sawyer 4.0 H* (0.7-2.0) mmol/L Calcium (8.4-10.2) mg/dL AST (17-59) U/L Troponin I (0.000-0.034) ng/mL Urine Protein (Negative) Urine Glucose (UA) (Negative) Urine Blood (Negative) Urine Bacteria (None) /hpf Urine Mucus (None) /hpf Assessment and Plan Assessment: acute CHF Possible non-STEMI Acute kidney injury Diabetes mellitus Hypertension Hyperlipidemia Be benign prostatic hypertrophy with acute urinary retention History of vertigo Plan: Continue with heparin drip Continue with aspirin continue with IV Lasix Cardiology consult Check echocardiogram Continue with antibiotic Nephrology consult also vascular surgery been consulted for dialysis catheter placement Labs and medication were reviewed.. Continue same treatment. Continue with symptomatic treatment. Resume home medication. Monitor labs and vitals. DVT and GI prophylaxis. Further recommendations as per clinical course of the patient DVT prophylaxis: heparin GI Prophylaxis: Pepcid PT/OT: Pending Prognosis is guarded
[2022-02-12] MEDS: TAMSULOSIN 0.4 MG CAP.ER.24H PO SCH (11:22)
[2022-02-12] MEDS ORDERED: LORazepam 2 MG/ML INJ IV PRN (11:26)
--- NOTE | 2022-02-12 12:22 | P.GSCN ---
History of Present Illness Consult date: 02/12/22 Reason for Consult: Needs dialysis access Requesting physician: Austin Gilbert History of present illness: This is a 76-year-old male with a past medical history of diabetes mellitus, coronary artery disease with previous CABG, hypertension, hyperlipidemia, BPH with urinary retention who presented to the emergency department with complaints of shortness of breath. He said shortness of breath over the last 3 months but it is been getting progressively worse over the last 2 weeks. He went to [facility], was evaluated in.to be in acute congestive heart failure, patient had been asked to be transferred to [facility] where his regular physicians are. On admission he was noted to have elevated troponin, acute kidney injury, elevated BNP and elevated lactic acid. Cardiology consulted, patient initially started on heparin drip for possible atrial fibrillation, however cardiology reviewed patient's case felt that there was no evidence of atrial fibrillation and heparin drip had been discontinued. Due to patient's acute kidney injury vascular surgery was consulted for dialysis access. However Dr. Rodriguez from nephrology was in to see patient just prior to vascular surgery and states that patient does not need hemodialysis access at this time. Patient currently continues to have shortness of breath, he denies any chest pain, denies any abdominal pain, nausea or vomiting. Does have some lower extremity swelling. He denies any fevers or chills. Review of Systems A 14 point review systems was completed all pertinent positives and negatives as stated in the HPI. Past Medical History Smoking Status: Never smoker Past Alcohol Use History: None Reported Past Drug Use History: None Reported Medications and Allergies Home Medications Medication Instructions Recorded Confirmed Type Acetaminophen [Tylenol 8 Hour] 650 mg PO Q6H PRN 02/11/22 02/11/22 History Aspirin EC [Ecotrin Low Dose] 81 mg PO DAILY 02/11/22 02/11/22 History Azelastine HCl 2 spray NASAL BID 02/11/22 02/11/22 History Famotidine [Pepcid] 20 mg PO DAILY 02/11/22 02/11/22 History HYDROcodone/APAP 5-325MG [[place] 1 tab PO BID PRN 02/11/22 02/11/22 History 5-325] Meclizine HCl [Antivert] 25 mg PO DAILY PRN 02/11/22 02/11/22 History Metoprolol Tartrate [Lopressor] 50 mg PO BID 02/11/22 02/11/22 History Nitroglycerin Sl Tabs [Nitrostat] 0.4 mg SL Q5M PRN 02/11/22 02/11/22 History Potassium Chloride ER [K-Dur 10] 10 meq PO DAILY 02/11/22 02/11/22 History Pravastatin Sodium [Pravachol] 40 mg PO HS 02/11/22 02/11/22 History Repaglinide [Prandin] 1 mg PO HS 02/11/22 02/11/22 History Tamsulosin HCl [Flomax] 0.4 mg PO BID 02/11/22 02/11/22 History allopurinoL [Zyloprim] 100 mg PO BID 02/11/22 02/11/22 History amLODIPine [Norvasc] 5 mg PO DAILY 02/11/22 02/11/22 History hydroCHLOROthiazide [Hydrodiuril] 25 mg PO DAILY 02/11/22 02/11/22 History metFORMIN HCL [Glucophage] 1,000 mg PO BID 02/11/22 02/11/22 History Allergies Allergy/AdvReac Type Severity Reaction Status Date / Time duloxetine [From Cymbalta] Allergy Rash/Hives Verified 02/11/22 21:57 enalaprilat [From Vasotec] Allergy Unknown Verified 02/11/22 21:57 levofloxacin [From Levaquin] Allergy Rash/Hives Verified 02/11/22 21:57 saxagliptin [From Onglyza] Allergy Rash/Hives Verified 02/11/22 21:57 sulfamethoxazole Allergy Rash/Hives Verified 02/11/22 21:57 [From Bactrim] trimethoprim [From Bactrim] Allergy Rash/Hives Verified 02/11/22 21:57 Surgical - Exam Vital Signs Pulse Resp BP Pulse Ox 93 28 H 157/84 91 L 02/11/22 20:16 02/11/22 20:16 02/11/22 20:16 02/11/22 20:16 General appearance: The patient is alert, oriented, appears in no acute distress. HET: Head is normocephalic and atraumatic. Pupils are equal and reactive. Neck: Supple without lymphadenopathy. Trachea midline. No audible carotid bruit. Heart: Regular. Lungs: Equal expansion, normal respiratory effort. Abdomen: Soft, nontender, nondistended. Extremities: Normal skin color and turgor. No significant lower extremity ed becky. Neurological: No focal deficits. Alert and oriented 3. Results - Labs 02/12/22 03:26 02/11/22 21:03 Abnormal Lab Results - Last 24 Hours (Table) 02/11/22 02/11/22 02/11/22 Range/Units 21:03 21:03 21:03 RBC 2.74 L (4.30-5.90) m/uL Hgb 9.1 L (13.0-17.5) gm/dL Hct 27.0 L (39.0-53.0) % MCV (80.0-100.0) fL Lymphocytes # (1.0-4.8) k/uL APTT 33.1 H (22.0-30.0) sec Chloride 110 H (98-107) mmol/L Carbon Dioxide 18 L (22-30) mmol/L BUN 65 H (9-20) mg/dL Creatinine 7.16 H* (0.66-1.25) mg/dL Glucose 160 H (74-99) mg/dL Plasma Lactic Acid Sawyer (0.7-2.0) mmol/L Calcium 8.3 L (8.4-10.2) mg/dL AST 16 L (17-59) U/L Troponin I (0.000-0.034) ng/mL Urine Protein (Negative) Urine Glucose (UA) (Negative) Urine Blood (Negative) Urine Bacteria (None) /hpf Urine Mucus (None) /hpf 02/11/22 02/11/22 02/12/22 Range/Units 21:03 21:03 00:26 RBC (4.30-5.90) m/uL Hgb (13.0-17.5) gm/dL Hct (39.0-53.0) % MCV (80.0-100.0) fL Lymphocytes # (1.0-4.8) k/uL APTT (22.0-30.0) sec Chloride (98-107) mmol/L Carbon Dioxide (22-30) mmol/L BUN (9-20) mg/dL Creatinine (0.66-1.25) mg/dL Glucose (74-99) mg/dL Plasma Lactic Acid Sawyer 2.1 H* (0.7-2.0) mmol/L Calcium (8.4-10.2) mg/dL AST (17-59) U/L Troponin I 0.193 H* (0.000-0.034) ng/mL Urine Protein 2+ H (Negative) Urine Glucose (UA) Trace H (Negative) Urine Blood Trace H (Negative) Urine Bacteria Rare H (None) /hpf Urine Mucus Rare H (None) /hpf 02/12/22 02/12/22 02/12/22 Range/Units 00:35 03:26 03:26 RBC 2.52 L (4.30-5.90) m/uL Hgb 8.5 L (13.0-17.5) gm/dL Hct 25.3 L (39.0-53.0) % MCV 100.3 H (80.0-100.0) fL Lymphocytes # 0.7 L (1.0-4.8) k/uL APTT 84.4 H (22.0-30.0) sec Chloride (98-107) mmol/L Carbon Dioxide (22-30) mmol/L BUN (9-20) mg/dL Creatinine (0.66-1.25) mg/dL Glucose (74-99) mg/dL Plasma Lactic Acid Sawyer 4.0 H* (0.7-2.0) mmol/L Calcium (8.4-10.2) mg/dL AST (17-59) U/L Troponin I (0.000-0.034) ng/mL Urine Protein (Negative) Urine Glucose (UA) (Negative) Urine Blood (Negative) Urine Bacteria (None) /hpf Urine Mucus (None) /hpf Diabetes panel 02/11/22 Range/Units 21:03 Sodium 139 (137-145) mmol/L Potassium 4.3 (3.5-5.1) mmol/L Chloride 110 H (98-107) mmol/L Carbon Dioxide 18 L (22-30) mmol/L BUN 65 H (9-20) mg/dL Creatinine 7.16 H* (0.66-1.25) mg/dL Glucose 160 H (74-99) mg/dL Calcium 8.3 L (8.4-10.2) mg/dL AST 16 L (17-59) U/L ALT 15 (4-49) U/L Alkaline Phosphatase 54 (38-126) U/L Total Protein 6.6 (6.3-8.2) g/dL Albumin 3.6 (3.5-5.0) g/dL Calcium panel 02/11/22 Range/Units 21:03 Calcium 8.3 L (8.4-10.2) mg/dL Albumin 3.6 (3.5-5.0) g/dL Pituitary panel 02/11/22 Range/Units 21:03 Sodium 139 (137-145) mmol/L Potassium 4.3 (3.5-5.1) mmol/L Chloride 110 H (98-107) mmol/L Carbon Dioxide 18 L (22-30) mmol/L BUN 65 H (9-20) mg/dL Creatinine 7.16 H* (0.66-1.25) mg/dL Glucose 160 H (74-99) mg/dL Calcium 8.3 L (8.4-10.2) mg/dL Adrenal panel 02/11/22 Range/Units 21:03 Sodium 139 (137-145) mmol/L Potassium 4.3 (3.5-5.1) mmol/L Chloride 110 H (98-107) mmol/L Carbon Dioxide 18 L (22-30) mmol/L BUN 65 H (9-20) mg/dL Creatinine 7.16 H* (0.66-1.25) mg/dL Glucose 160 H (74-99) mg/dL Calcium 8.3 L (8.4-10.2) mg/dL Total Bilirubin 0.5 (0.2-1.3) mg/dL AST 16 L (17-59) U/L ALT 15 (4-49) U/L Alkaline Phosphatase 54 (38-126) U/L Total Protein 6.6 (6.3-8.2) g/dL Albumin 3.6 (3.5-5.0) g/dL - Imaging Comments: Ultrasound kidneys/renal and bladder report bilateral nonobstructing nephrolithiasis, complex cystic lesion involving right kidney measuring 2.7 cm. Neoplasm in the differential diagnosis recommend MRI. Renal cortex is echogenic correlate for chronic medical renal disease Chest x-ray: report reviewed (Airspace opacities projecting the heart and more posteriorly correlate for pneumonia. A component of pulmonary vascular congestion. Also be present correlate with BNP for congestive heart failure) Assessment and Plan Assessment: 1. Acute kidney injury 2. Elevated troponin 3. Shortness of breath 4. Acute hypoxic respiratory failure 5. Possible pneumonia 6. History coronary artery disease status post CABG 7. BPH with urinary retention Plan: Spoke with Dr. Rodriguez regarding the patient. At this time patient is not r equiring renal replacement therapy and therefore does not need hemodialysis access at this time. Thank you for this consultation, we will continue to follow along and appreciate recommendations from nephrology. The impression and plan of care has been dictated as directed. I performed a history and examination of this patient, discussed the same with the dictator. I agree with the dictator's note ,documented as a scribe. Any additional findings or plans will be noted.
[2022-02-12 12:51] LABS: Calcium 8.2 mg/dL (8.4-10.2); Potassium 4.5 mmol/L (3.5-5.1)
[2022-02-12] MEDS ORDERED: FUROSEMIDE 10 MG/ML 10 ML VIAL IV STA (15:01)
[2022-02-12 16:34] LABS: Glucose,Whole Blood 137 mg/dL (70-110)
[2022-02-12] MEDS: HEPARIN SODIUM,PORCINE/PF 5,000 UNIT/0.5 ML SYRINGE SQ SCH (16:36)
[2022-02-12 20:40] LABS: Glucose,Whole Blood 196 mg/dL (70-110)
[2022-02-12] MEDS: PRAVASTATIN SODIUM 40 MG TAB PO SCH (20:46)
[2022-02-12] MEDS ORDERED: FAMOTIDINE 20 MG/2 ML VIAL IV SCH (21:00)
[2022-02-13] MEDS: HEPARIN SODIUM,PORCINE/PF 5,000 UNIT/0.5 ML SYRINGE SQ SCH ×3 (00:15→15:14)
[2022-02-13 06:15] LABS: Glucose,Whole Blood 165 mg/dL (70-110)
[2022-02-13] MEDS: TAMSULOSIN 0.4 MG CAP.ER.24H PO SCH (08:09)
[2022-02-13] MEDS: amLODIPine 5 MG TAB PO SCH (08:09)
[2022-02-13] MEDS: METOPROLOL TARTRATE 50 MG TAB PO SCH ×2 (08:09→21:27)
[2022-02-13] MEDS: FUROSEMIDE 10 MG/ML 4 ML VIAL IV SCH (08:09)
[2022-02-13 09:25] LABS: Basophils % (A) 0 %; Eosinophils # (A) 0.1 k/uL (0-0.7); Eosinophils % (A) 1 %; HCT 24.4 % (39.0-53.0); HGB 8.3 gm/dL (13.0-17.5); Lymphocytes % (A) 14 %; MCH 33.7 pg (25.0-35.0); MCHC 33.9 g/dL (31.0-37.0); MCV 99.5 fL (80.0-100.0); Macrocytosis Slight; Mean Platelet Volume 9.1; Monocytes # (A) 0.4 k/uL (0-1.0); Monocytes % (A) 5 %; Neutrophils # (A) 5.8 k/uL (1.3-7.7); Neutrophils % (A) 79 %; Platelet Count 210 k/uL (150-450); RBC 2.46 m/uL (4.30-5.90); RDW 14.9 % (11.5-15.5); WBC 7.3 k/uL (3.8-10.6)
--- NOTE | 2022-02-13 09:27 | P.PN ---
Subjective Progress Note Date: 02/13/22 Principal diagnosis: Acute kidney injury, possible dialysis catheter placement Patient is seen and examined today for follow-up for acute kidney injury with possible need for renal replacement therapy. Vascular surgery was consulted for possible dialysis catheter placement. Nephrology is following closely. Patient was started on Lasix and has had good urine output yesterday approximately 1200 mL. The patient has clear urine in Hilario catheter bag. He denies any acute marleny nges through the night. Today's labs are currently pending. Objective - Vital Signs Vital signs: Vital Signs Temp 98.3 F 02/13/22 04:00 Pulse 75 02/13/22 04:00 Resp 12 02/13/22 04:00 BP 149/67 02/13/22 04:00 Pulse Ox 90 L 02/13/22 04:00 FiO2 50 02/13/22 03:49 Intake & Output 02/12/22 02/13/22 02/13/22 18:59 06:59 18:59 Intake Total 230 Output Total 1250 980 Balance -1020 -980 Weight 62.596 kg 60.9 kg Intake: Oral 230 Output: Urine 1250 980 Uretheral (Hilario) 550 280 Other: Voiding Method Indwelling Catheter # Voids 1 # Bowel Movements 0 - Exam General appearance: The patient is alert, oriented, appears in no acute distress. HET: Head is normocephalic and atraumatic. Neck: Supple without lymphadenopathy. Heart: Regular. Lungs: Equal expansion, normal respiratory effort. Abdomen: Soft, nontender, nondistended. Extremities: Normal skin color and turgor. No cyanosis, rash, ulceration, clu bbing, or edema. Neurological: No focal deficits. Strength and sensation are grossly intact. - Labs CBC & Chem 7: 02/12/22 03:26 02/12/22 11:46 Labs: Abnormal Lab Results - Last 24 Hours (Table) 02/12/22 02/12/22 02/12/22 Range/Units 08:57 11:46 16:32 APTT 48.2 H (22.0-30.0) sec Chloride 109 H (98-107) mmol/L Carbon Dioxide 19 L (22-30) mmol/L BUN 64 H (9-20) mg/dL Creatinine 7.74 H* (0.66-1.25) mg/dL Glucose 165 H (74-99) mg/dL POC Glucose (mg/dL) 137 H (70-110) mg/dL Calcium 8.2 L (8.4-10.2) mg/dL 02/12/22 02/13/22 Range/Units 20:38 06:13 APTT (22.0-30.0) sec Chloride (98-107) mmol/L Carbon Dioxide (22-30) mmol/L BUN (9-20) mg/dL Creatinine (0.66-1.25) mg/dL Glucose (74-99) mg/dL POC Glucose (mg/dL) 196 H 165 H (70-110) mg/dL Calcium (8.4-10.2) mg/dL Assessment and Plan Assessment: 1. Acute kidney injury 2. Elevated troponin 3. Shortness of breath 4. Acute hypoxic respiratory failure 5. Possible pneumonia 6. History coronary artery disease status post CABG 7. BPH with urinary retention Plan: A vascular surgery will be on standby if renal replacement therapy is recommended by nephrology. Please contact us if nephrology recommends hemodialysis catheter placement. Continue medical management per primary [facility] dicine team and nephrology. The impression and plan of care has been dictated as directed. Dr. Gray I performed a history and examination of this patient, discussed the same with the dictator. I agree with the dictator's note ,documented as a scribe. Any additional findings or plans will be noted.
[2022-02-13 09:37] LABS: Calcium 7.8 mg/dL (8.4-10.2); Magnesium 1.7 mg/dL (1.6-2.3); Potassium 3.8 mmol/L (3.5-5.1)
--- NOTE | 2022-02-13 10:56 | P.PN ---
Subjective Progress Note Date: 02/13/22 HISTORY OF PRESENT ILLNESS: This is a 76 year with a past medical history significant for coronary artery disease with previous CABG, moderate aortic regurgitation, hypertension, hyp erlipidemia, diabetes, and chronic kidney disease. Patient follows in the office with Dr. Cortés. We have been asked to see the patient in consultation for CHF and elevated troponin. Patient examined at the bedside. Patient reports having progressive shortness of breath for the past two months which prompted him to to come to the ER. Patient denies any chest pain or pressure. He is currently on a bipap and states his breathing is improved since coming to the hospital. He was found to be in acute renal failure with a creatinine of 7.16. He reports his baseline is around 3. Vascular has been consulted for HD access. Vital signs are stable. Telemetry reveals sinus mechanism. * EKG reveals sinus mechanism with PACs. No evidence of atrial fibrillation. * Chest xray airspace opacities projecting the heart and more posteriorly correlate for pneumonia. A component of pulmonary vascular congestion may also be present. * Laboratory data: WBC 8.0. Hemoglobin 8.5. Platelet count 194. Sodium 139. Potassium 4.3. BUN 65. Creatinine 7.16. Troponin 0.193. ProBNP 70,200. * Current home cardiac medications include hydrochlorothiazide 25 mg daily, amlodipine 5 mg daily, metoprolol tartrate 50 mg twice a day, aspirin 81 mg daily, Pravachol 40 mg at night * Most recent echocardiogram obtained in June 2021 revealed ejection fraction 55%, moderate aortic regurgitation, moderate mitral regurgitation, mild to moderate tricuspid regurgitation * Patient underwent Lexiscan stress test in June 2021 which was negative for acute ischemia 02/13/2022 Patient examined this morning at the bedside. Patient remains on bipap. He reports SOB. He denies chest pain or pressure. Patient was placed on IV Lasix per nephrology. Creatinine today is 8.24. Fluid balance over the last 24 hours is -2 L. PHYSICAL EXAM: VITAL SIGNS: Reviewed. GENERAL: Well-developed in no acute distress. HEENT: Head is normocephalic. Pupils are equal, round. Sclerae anicteric. Mucous membranes of the mouth are moist. Neck supple. No JVD or thyromegaly LUNGS: Respirations even and unlabored. Lungs diminished. HEART: Regular rate and rhythm. S1 and S2 heard. + systolic murmur. ABDOMEN: Soft. Nondistended. Nontender. EXTREMITIES: Normal range of motion. No clubbing or cyanosis. Peripheral pulses intact. No lower extremity edema NEUROLOGIC: Awake and alert. Oriented x 3. ASSESSMENT: Shortness of breath Acute hypoxic respiratory failure Acute on chronic kidney disease Fluid overload secondary to above Atrial fibrillation, RULED OUT, ekg reveals sinus mechanism with PACS Abnormal troponin, ACS ruled out, likely secondary to acute renal failure Coronary artery disease with previous CABG Valvular heart disease Hypertension Hyperlipidemia Diabetes PLAN: No need to repeat echo as this was performed in the office in June 2021 Hold HCTZ Resume additional home cardiac medications Continue IV diuresis per nephrology. Possible hemodialysis. Further recommendations pending patient course Nurse practitioner note has been reviewed by physician. Signing provider agrees with the documented findings, assessment, and plan of care. Objective - Vital Signs Vital signs: Vital Signs Temp 97.7 F 02/13/22 08:11 Pulse 80 02/13/22 08:11 Resp 20 02/13/22 08:11 BP 167/80 02/13/22 08:11 Pulse Ox 93 L 02/13/22 08:11 FiO2 50 02/13/22 03:49 Intake & Output 02/12/22 02/13/22 02/13/22 18:59 06:59 18:59 Intake Total 230 928 Output Total 1250 980 Balance -1020 -980 928 Weight 62.596 kg 60.9 kg Intake: Oral 230 928 Output: Urine 1250 980 Uretheral (Hilario) 550 280 Other: Voiding Method Indwelling Catheter Indwelling Catheter # Voids 1 # Bowel Movements 0 - Labs CBC & Chem 7: 02/13/22 08:52 02/13/22 08:52 Labs: Abnormal Lab Results - Last 24 Hours (Table) 02/12/22 02/12/22 02/12/22 Range/Units 11:46 16:32 20:38 RBC (4.30-5.90) m/uL Hgb (13.0-17.5) gm/dL Hct (39.0-53.0) % Chloride 109 H (98-107) mmol/L Carbon Dioxide 19 L (22-30) mmol/L BUN 64 H (9-20) mg/dL Creatinine 7.74 H* (0.66-1.25) mg/dL Glucose 165 H (74-99) mg/dL POC Glucose (mg/dL) 137 H 196 H (70-110) mg/dL Calcium 8.2 L (8.4-10.2) mg/dL 02/13/22 02/13/22 02/13/22 Range/Units 06:13 08:52 08:52 RBC 2.46 L (4.30-5.90) m/uL Hgb 8.3 L (13.0-17.5) gm/dL Hct 24.4 L (39.0-53.0) % Chloride (98-107) mmol/L Carbon Dioxide 18 L (22-30) mmol/L BUN 75 H (9-20) mg/dL Creatinine 8.24 H* (0.66-1.25) mg/dL Glucose 233 H (74-99) mg/dL POC Glucose (mg/dL) 165 H (70-110) mg/dL Calcium 7.8 L (8.4-10.2) mg/dL
--- NOTE | 2022-02-13 11:26 | P.PN ---
Subjective Patient is seen for follow-up for acute kidney injury. He was admitted to the hospital with complaints of shortness of breath and increased weakness. Patient was noted to 2 have a serum creatinine of 7.7 milligrams per deciliter. Previous creatinine was 0.8 on 09/18/2021. Patient had significant urine retention and a Hilario catheter was placed. Ultrasound did not show significant hydronephrosis. Patient has not been hypotensive. He denied use of NSAIDs. Chest x-ray shows pulmonary vascular congestion. UA shows 2+ protein and trace blood Currently has good urine output. Patient remains short of breath and he is being diuresed Serum creatinine increased to 8.2 today. I advised the patient that we need to start hemodialysis and at this time patient states that he would like to wait 1 more day. He states that his breathing has improved and prefers to wait another 24 hours. Objective - Vital Signs Vital signs: Vital Signs Temp 97.7 F 02/13/22 08:11 Pulse 80 02/13/22 08:11 Resp 20 02/13/22 08:11 BP 167/80 02/13/22 08:11 Pulse Ox 93 L 02/13/22 08:11 FiO2 50 02/13/22 03:49 Intake & Output 02/12/22 02/13/22 02/13/22 18:59 06:59 18:59 Intake Total 230 928 Output Total 1250 980 Balance -1020 -980 928 Weight 62.596 kg 60.9 kg Intake: Oral 230 928 Output: Urine 1250 980 Uretheral (Hilario) 550 280 Other: Voiding Method Indwelling Catheter Indwelling Catheter # Voids 1 # Bowel Movements 0 - Exam Awake, comfortable no acute distress Alert oriented 3 Examination of the heart S1 and S2 Examination of the lungs bilateral breath sounds are heard Abdomen is soft nontender Examination of lower extremities shows trace edema DYNAMO TENDER exam grossly intact - Labs CBC & Chem 7: 02/13/22 08:52 02/13/22 08:52 Labs: Abnormal Lab Results - Last 24 Hours (Table) 02/12/22 02/12/22 02/12/22 Range/Units 11:46 16:32 20:38 RBC (4.30-5.90) m/uL Hgb (13.0-17.5) gm/dL Hct (39.0-53.0) % Chloride 109 H (98-107) mmol/L Carbon Dioxide 19 L (22-30) mmol/L BUN 64 H (9-20) mg/dL Creatinine 7.74 H* (0.66-1.25) mg/dL Glucose 165 H (74-99) mg/dL POC Glucose (mg/dL) 137 H 196 H (70-110) mg/dL Calcium 8.2 L (8.4-10.2) mg/dL 02/13/22 02/13/22 02/13/22 Range/Units 06:13 08:52 08:52 RBC 2.46 L (4.30-5.90) m/uL Hgb 8.3 L (13.0-17.5) gm/dL Hct 24.4 L (39.0-53.0) % Chloride (98-107) mmol/L Carbon Dioxide 18 L (22-30) mmol/L BUN 75 H (9-20) mg/dL Creatinine 8.24 H* (0.66-1.25) mg/dL Glucose 233 H (74-99) mg/dL POC Glucose (mg/dL) 165 H (70-110) mg/dL Calcium 7.8 L (8.4-10.2) mg/dL Assessment and Plan Assessment: 1. Acute kidney injury with evidence of urine retention. No hydronephrosis noted on ultrasound. Serum creatinine has not improved although patient has had good urine output. UA shows 2+ protein and trace blood If there is no evidence of obstructive uropathy this is mostly ATN. Check bladder scan and check ultrasound of the kidneys. UA shows 2+ protein and trace blood. No nephrotoxic agents on board currently. Patient is reluctant to start hemodialysis. He states that he would like to wait another 24 hours. I will check serologies rule out underlying acute GN. 2. Lactic acidosis 3. Metabolic acidosis associated with renal failure and lactic acidosis, non- gap 4. History of CK D stage III secondary to nephrosclerosis previous creatinine about 1.2 however we have a creatinine of 0.8 on 09/18/2021 5. Anemia rule out iron deficiency 6. Possible pneumonia Plan: Check serologies for workup of possible acute GN Hemodialysis tomorrow if no further improvement in renal function Increase Lasix Repeat labs in a.m. Continue to avoid nephrotoxic medications.
[2022-02-13 11:34] LABS: Glucose,Whole Blood 204 mg/dL (70-110)
[2022-02-13] MEDS ORDERED: ALPRAZolam 0.25 MG TAB PO STA (13:47)
[2022-02-13 16:37] LABS: Glucose,Whole Blood 188 mg/dL (70-110)
[2022-02-13 19:10] LABS: Hepatitis B Surface AB- Quant 3.5 mIU/mL; Hepatitis B Surface Antibody Nonreactive (Nonreactive)
[2022-02-13 19:40] LABS: Hepatitis B Surface Antigen Nonreactive (Nonreactive); Hepatitis C IgG Antibody Nonreactive (Nonreactive)
[2022-02-13 20:07] LABS: Glucose,Whole Blood 269 mg/dL (70-110)
[2022-02-13 20:16] LABS: DNA Double-Stranded NEGATIVE (NEGATIVE)
[2022-02-13] MEDS: PRAVASTATIN SODIUM 40 MG TAB PO SCH (21:26)
[2022-02-13] MEDS: FAMOTIDINE 20 MG TAB PO SCH (21:27)
[2022-02-13] MEDS: FUROSEMIDE 10 MG/ML 10 ML VIAL IV SCH (21:27)
[2022-02-14] MEDS: HEPARIN SODIUM,PORCINE/PF 5,000 UNIT/0.5 ML SYRINGE SQ SCH ×3 (00:06→17:10)
--- NOTE | 2022-02-14 05:43 | P.PN ---
Subjective This is a pleasant 76 years old male with past medical history of diabetes mellitus, hypertension, benign prostatic hypertrophy, hyperlipidemia Patient states that she has been having dyspnea for the last 3 months getting progressively worse over the last 2 weeks till yesterday he could not bear it anymore sided decided to go to [facility]. Also has been having cough with some phlegm unknown color no chest pain. Patient is complaining of from diarrhea and vomiting for the last 3 days with no abdominal pain. Yesterday he has one bout of loose bowel movement with no blood and lytes in color and he vomited twice with no blood as well. Patient denies any dysuria or urgency. He has some dizziness but no headache or weakness or numbness. However patient feels generally weak. Denies smoking alcohol or illicit tracts. It is not on home oxygen. He is Dr. Downs, drawing hand Dr. Cortés and urologist is Dr. Martin Patient was transferred from [facility] for dyspnea. Vitals currently showing stable blood pressure 153/95. Patient is saturating 97% on BiPAP. Prior to that he was saturating 91-93% on 6 L oxygen via nasal cannula and he was tachypneic Labs here show an unremarkable CBC except for anemia with hemoglobin 8.5. High lactic acid came back to normal Urine analysis showing 2+ protein. Troponin is elevated at 0.19 [place] [address] creatinine is elevated 7.1. 5 months ago creatinine was normal 0.8. Potassium currently normal formed 0.3 as well as sodium 139. Liver enzymes not significantly elevated. Chest x-ray:Opacity projecting the heart and more posteriorly correlate for pneumonia. A component of pulmonary vascular congestion may also be present. Correlate for CHF EKG showing atrial fibrillation's with controlled rate at 88, mild ST depression in V4 and V5 no other significant ST-T changes 02/13/2022 Patient still complaining of from dyspnea, currently on 6 L/m of oxygen. He was not on oxygen at home. And he reports using BiPAP at times. His been evaluated and followed by drawing hand and parks worker for cardiac and renal failure, creatinine 7.7 on admission currently 8.4 and plan for hemodialysis tomorrow. Also he is on IV Lasix 60 mg twice daily. Hydrochlorothiazide is on hold. ProBNP [id number]. And renal ultrasound showing kidney stones, nonobstructive with right kidney complex mass 2.7 cm need to rule out cancerous lesion. His pro-calcitonin is mildly elevated at 0.4. Pneumonia is suspected that patient treated with ceftriaxone and Zithromax. Review of systems CONSTITUTIONAL: No fever, no malaise, no fatigue. HEENT: No recent visual problems or hearing problems. Denied any sore throat. CARDIOVASCULAR: No orthopnea, PND, no palpitations, no syncope. PULMONARY: No chest wall tenderness, no hemoptysis. GASTROINTESTINAL: No diarrhea, no nausea, no vomiting, no abdominal pain. Normoactive bowel sounds. NEUROLOGICAL: No headaches, no weakness, no numbness. \ Active Medications Generic Name Dose Route Start Last Admin Trade Name Freq PRN Reason Stop Dose Admin Amlodipine Besylate 5 mg 02/12/22 09:00 02/13/22 08:09 Amlodipine 5 Mg Tab PO 5 mg DAILY JUMA Administration Famotidine 20 mg 02/13/22 21:00 02/13/22 21:27 Famotidine 20 Mg Tab PO 20 mg HS JUMA Administration Furosemide 60 mg 02/13/22 21:00 02/13/22 21:27 Furosemide 10 Mg/Ml 10 Ml Vial IV 60 mg Q12HR JUMA Administration Heparin Sodium (Porcine) 5,000 unit 02/12/22 16:00 02/14/22 00:06 Heparin Sodium,Porcine/Pf 5,000 Unit/0.5 Ml Syringe SQ 5,000 unit Q8HR JUMA Administration Ceftriaxone Sodium 1 gm/ 50 mls @ 100 mls/hr 02/12/22 23:30 02/14/22 00:01 Sodium Chloride IVPB 100 mls/hr Q12H JUMA Administration Protocol Azithromycin 500 mg/ Sodium 250 mls @ 250 mls/hr 02/14/22 06:00 Chloride IVPB 02/16/22 09:59 DAILY JUMA Protocol Metoprolol Tartrate 50 mg 02/12/22 09:00 02/13/22 21:27 Metoprolol Tartrate 50 Mg Tab PO 50 mg BID JUMA Administration Naloxone HCl 0.2 mg 02/11/22 23:19 Naloxone 0.4 Mg/Ml 1 Ml Vial IV Q2M PRN Opioid Reversal Pravastatin Sodium 40 mg 02/12/22 21:00 02/13/22 21:26 Pravastatin Sodium 40 Mg Tab PO 40 mg HS JUMA Administration Tamsulosin HCl 0.4 mg 02/12/22 10:15 02/13/22 08:09 Tamsulosin 0.4 Mg Cap.Er.24h PO 0.4 mg [id number] JUMA Administration Objective - Vital Signs Vital signs: Vital Signs Temp 97.9 F 02/13/22 12:02 Pulse 73 02/13/22 12:02 Resp 20 02/13/22 12:02 BP 143/68 02/13/22 12:02 Pulse Ox 96 02/13/22 12:02 FiO2 50 02/13/22 11:24 Intake & Output 02/12/22 02/13/22 02/13/22 18:59 06:59 18:59 Intake Total 230 928 Output Total 1250 980 Balance -1020 -980 928 Weight 62.596 kg 60.9 kg 60.9 kg Intake: Oral 230 928 Output: Urine 1250 980 Uretheral (Hilario) 550 280 Other: Voiding Method Indwelling Catheter Indwelling Catheter # Voids 1 # Bowel Movements 0 - Exam GENERAL: The patient is alert and oriented x3, not in any acute distress. Well developed, well nourished. HEENT: Pupils are round and equally reacting to light. EOMI. No scleral icterus. No conjunctival pallor. Normocephalic, atraumatic. No pharyngeal erythema. No thyromegaly. CARDIOVASCULAR: S1 and S2 present. No murmurs, rubs, or gallops. -PULMONARY: Chest is clear to auscultation, no wheezing , mild bilateral basal crepitation ABDOMEN: Soft, nontender, nondistended, normoactive bowel sounds. No palpable organomegaly. MUSCULOSKELETAL: No joint swelling or deformity. EXTREMITIES: No cyanosis, clubbing, or pedal edema. NEUROLOGICAL: Gross neurological examination did not reveal any focal deficits. SKIN: No rashes. no petechiae. - Labs CBC & Chem 7: 02/13/22 08:52 02/13/22 08:52 Labs: Abnormal Lab Results - Last 24 Hours (Table) 02/12/22 02/12/22 02/13/22 Range/Units 16:32 20:38 06:13 RBC (4.30-5.90) m/uL Hgb (13.0-17.5) gm/dL Hct (39.0-53.0) % Carbon Dioxide (22-30) mmol/L BUN (9-20) mg/dL Creatinine (0.66-1.25) mg/dL Glucose (74-99) mg/dL POC Glucose (mg/dL) 137 H 196 H 165 H (70-110) mg/dL Calcium (8.4-10.2) mg/dL 02/13/22 02/13/22 02/13/22 Range/Units 08:52 08:52 11:32 RBC 2.46 L (4.30-5.90) m/uL Hgb 8.3 L (13.0-17.5) gm/dL Hct 24.4 L (39.0-53.0) % Carbon Dioxide 18 L (22-30) mmol/L BUN 75 H (9-20) mg/dL Creatinine 8.24 H* (0.66-1.25) mg/dL Glucose 233 H (74-99) mg/dL POC Glucose (mg/dL) 204 H (70-110) mg/dL Calcium 7.8 L (8.4-10.2) mg/dL Assessment and Plan Assessment: Acute kidney injury on chronic kidney disease stage III, patient will be treated with hemodialysis starting 02/14/2022 acute CHF, pneumonia cannot entirely exclude it however patient with no fever or leukocytosis Patient and troponin, ACS ruled out, mostly secondary to kidney disease 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 Continue same treatment. Continue with symptomatic treatment. Resume home medication. Monitor labs and vitals. DVT a nd GI prophylaxis. Further recommendations as per clinical course of the patient DVT prophylaxis: heparin GI Prophylaxis: Pepcid PT/OT: Pending Prognosis is guarded
[2022-02-14 05:58] LABS: Glucose,Whole Blood 177 mg/dL (70-110)
[2022-02-14] MEDS: AZITHROMYCIN 500 MG in SODIUM CHLORIDE 0.9% 250 ML IVPB SCH (06:52)
[2022-02-14] MEDS: amLODIPine 5 MG TAB PO SCH (07:55)
[2022-02-14] MEDS: METOPROLOL TARTRATE 50 MG TAB PO SCH ×2 (07:55→21:01)
[2022-02-14] MEDS: TAMSULOSIN 0.4 MG CAP.ER.24H PO SCH (07:56)
--- NOTE | 2022-02-14 10:23 | P.PN ---
Subjective Patient is seen in follow-up for acute kidney injury. Creatinine 8.24 yesterday. Has Hilario catheter. Nonoliguric. Complains of shortness of breath with exertion. On 6 L nasal cannula. No vomiting or diarrhea. Oral intake poor. Daughter present at bedside. Vital signs are stable. General: Awake. No acute distress. HEENT: Head exam is unremarkable. On nasal cannula. LUNGS: Breath sounds decreased. HEART: Rate and Rhythm are regular. ABDOMEN: Soft, no distention. EXTREMITITES: No edema. Objective - Vital Signs Vital signs: Vital Signs Temp 97.8 F 02/14/22 07:53 Pulse 74 02/14/22 07:53 Resp 15 02/14/22 07:53 BP 154/78 02/14/22 07:53 Pulse Ox 90 L 02/14/22 07:53 FiO2 50 02/14/22 00:12 Intake & Output 02/13/22 02/14/22 02/14/22 18:59 06:59 18:59 Intake Total 928 118 180 Output Total 650 300 Balance 278 -182 180 Weight 60.9 kg 60.6 kg Intake: Oral 928 118 180 Output: Urine 650 300 Other: Voiding Method Indwelling Catheter Indwelling Catheter - Labs CBC & Chem 7: 02/13/22 08:52 02/13/22 08:52 Labs: Abnormal Lab Results - Last 24 Hours (Table) 02/13/22 02/13/22 02/13/22 Range/Units 08:52 11:32 16:35 POC Glucose (mg/dL) 204 H 188 H (70-110) mg/dL Procalcitonin 0.41 H (0.02-0.09) ng/mL 02/13/22 02/14/22 Range/Units 20:06 05:56 POC Glucose (mg/dL) 269 H 177 H (70-110) mg/dL Procalcitonin (0.02-0.09) ng/mL Assessment and Plan Plan: Assessment: 1. Acute kidney injury secondary to ATN component of urinary retention. No hydronephrosis noted on kidney ultrasound. Creatinine was 0.8 in August 2021. Creatinine was over 7 this admission. Rule out GN. 2. Metabolic acidosis secondary to acute kidney injury. Metformin held. 3. Anemia. Rule out iron deficiency. 4. Right kidney complex cystic lesion. Urology consulted. 5. Urinary retention. Has Hilario catheter. On Flomax. 6. Hypertension with chronic kidney disease. Stable. 7. Acute on chronic diastolic CHF with moderate aortic and mitral regurgitation. Cardiology following. 8. Diabetes mellitus. Plan: Maintain IV Lasix. Check iron studies. Add oral bicarb. Follow-up pending serologies - negative so far. Dialysis catheter placement pending. Start hemodialysis either today or tomorrow depending on when the catheter is placed. Continue to monitor for renal recovery. Kidney biopsy will also be considered. Discussed in detail with patient and his daughter present at bedside.
--- NOTE | 2022-02-14 10:31 | P.GSCN ---
History of Present Illness Consult date: 02/14/22 History of present illness: 76 yo male in the hospital from [facility] for dyspnea. He had an abdominal us and was identified to have bilateral renal cysts, One of the cysts on the right is atypical and for that reason I was asked to see the patient. Urologically he is asx. His urine has been clear. he is asx. The patient has arf [cr 8.2] He is not hydronephrotic but he wasn't emptying his bladder to completion. Review of Systems All systems: negative - Constitutional Denies fever, Denies weight loss - EENT Eyes: denies blurred vision Ears, nose, mouth and throat: Denies dysphagia - Cardiovascular Denies chest pain, Denies shortness of breath - Respiratory Denies cough, Denies 7 - Gastrointestinal Reports as per HPI - Genitourinary Denies dysuria, Denies hematuria - Integumentary Denies rash, Denies unusual bruising - Neurological Denies headaches, Denies syncope - Hematologic/Lymphatic Denies easy bleeding, Denies easy bruising Past Medical History Past Medical History: Diabetes Mellitus, Hypertension History of Any Multi-Drug Resistant Organisms: None Reported Past Surgical History: Cholecystectomy, Coronary Bypass/CABG Additional Past Surgical History / Comment(s): ACL ligament replacement Past Anesthesia/Blood Transfusion Reactions: No Reported Reaction Past Psychological History: No Psychological Hx Reported Smoking Status: Never smoker Past Alcohol Use History: None Reported Past Drug Use History: None Reported Medications and Allergies Home Medications Medication Instructions Recorded Confirmed Type Acetaminophen [Tylenol 8 Hour] 650 mg PO Q6H PRN 02/11/22 02/11/22 History Aspirin EC [Ecotrin Low Dose] 81 mg PO DAILY 02/11/22 02/11/22 History Azelastine HCl 2 spray NASAL BID 02/11/22 02/11/22 History Famotidine [Pepcid] 20 mg PO DAILY 02/11/22 02/11/22 History HYDROcodone/APAP 5-325MG [[place] 1 tab PO BID PRN 02/11/22 02/11/22 History 5-325] Meclizine HCl [Antivert] 25 mg PO DAILY PRN 02/11/22 02/11/22 History Metoprolol Tartrate [Lopressor] 50 mg PO BID 02/11/22 02/11/22 History Nitroglycerin Sl Tabs [Nitrostat] 0.4 mg SL Q5M PRN 02/11/22 02/11/22 History Potassium Chloride ER [K-Dur 10] 10 meq PO DAILY 02/11/22 02/11/22 History Pravastatin Sodium [Pravachol] 40 mg PO HS 02/11/22 02/11/22 History Repaglinide [Prandin] 1 mg PO HS 02/11/22 02/11/22 History Tamsulosin HCl [Flomax] 0.4 mg PO BID 02/11/22 02/11/22 History allopurinoL [Zyloprim] 100 mg PO BID 02/11/22 02/11/22 History amLODIPine [Norvasc] 5 mg PO DAILY 02/11/22 02/11/22 History hydroCHLOROthiazide [Hydrodiuril] 25 mg PO DAILY 02/11/22 02/11/22 History metFORMIN HCL [Glucophage] 1,000 mg PO BID 02/11/22 02/11/22 History Allergies Allergy/AdvReac Type Severity Reaction Status Date / Time duloxetine [From Cymbalta] Allergy Rash/Hives Verified 02/11/22 21:57 enalaprilat [From Vasotec] Allergy Unknown Verified 02/11/22 21:57 levofloxacin [From Levaquin] Allergy Rash/Hives Verified 02/11/22 21:57 saxagliptin [From Onglyza] Allergy Rash/Hives Verified 02/11/22 21:57 sulfamethoxazole Allergy Rash/Hives Verified 02/11/22 21:57 [From Bactrim] trimethoprim [From Bactrim] Allergy Rash/Hives Verified 02/11/22 21:57 Surgical - Exam Vital Signs Pulse Resp BP Pulse Ox 93 28 H 157/84 91 L 02/11/22 20:16 02/11/22 20:16 02/11/22 20:16 02/11/22 20:16 - General well developed, well nourished, moderate distress - Eyes PERRL - ENT no hearing loss - Neck trachea midline - Respiratory Dyspnea with caution. - Cardiovascular Rhythm: regular - Abdomen Abdomen: soft, non tender - Genitourinary Indwelling catheter clear urine - Neurologic normal sensation - Musculoskeletal normal posture - Psychiatric oriented to time, oriented to person, oriented to place, speech is normal, memory intact Results - Labs 02/13/22 08:52 02/13/22 08:52 Abnormal Lab Results - Last 24 Hours (Table) 02/13/22 02/13/22 02/13/22 Range/Units 08:52 08:52 08:52 RBC 2.46 L (4.30-5.90) m/uL Hgb 8.3 L (13.0-17.5) gm/dL Hct 24.4 L (39.0-53.0) % Carbon Dioxide 18 L (22-30) mmol/L BUN 75 H (9-20) mg/dL Creatinine 8.24 H* (0.66-1.25) mg/dL Glucose 233 H (74-99) mg/dL POC Glucose (mg/dL) (70-110) mg/dL Calcium 7.8 L (8.4-10.2) mg/dL Procalcitonin 0.41 H (0.02-0.09) ng/mL 02/13/22 02/13/22 02/13/22 Range/Units 11:32 16:35 20:06 RBC (4.30-5.90) m/uL Hgb (13.0-17.5) gm/dL Hct (39.0-53.0) % Carbon Dioxide (22-30) mmol/L BUN (9-20) mg/dL Creatinine (0.66-1.25) mg/dL Glucose (74-99) mg/dL POC Glucose (mg/dL) 204 H 188 H 269 H (70-110) mg/dL Calcium (8.4-10.2) mg/dL Procalcitonin (0.02-0.09) ng/mL 02/14/22 Range/Units 05:56 RBC (4.30-5.90) m/uL Hgb (13.0-17.5) gm/dL Hct (39.0-53.0) % Carbon Dioxide (22-30) mmol/L BUN (9-20) mg/dL Creatinine (0.66-1.25) mg/dL Glucose (74-99) mg/dL POC Glucose (mg/dL) 177 H (70-110) mg/dL Calcium (8.4-10.2) mg/dL Procalcitonin (0.02-0.09) ng/mL Diabetes panel 02/13/22 Range/Units 08:52 Sodium 138 (137-145) mmol/L Potassium 3.8 (3.5-5.1) mmol/L Chloride 107 (98-107) mmol/L Carbon Dioxide 18 L (22-30) mmol/L BUN 75 H (9-20) mg/dL Creatinine 8.24 H* (0.66-1.25) mg/dL Glucose 233 H (74-99) mg/dL Calcium 7.8 L (8.4-10.2) mg/dL Calcium panel 02/13/22 Range/Units 08:52 Calcium 7.8 L (8.4-10.2) mg/dL Pituitary panel 02/13/22 Range/Units 08:52 Sodium 138 (137-145) mmol/L Potassium 3.8 (3.5-5.1) mmol/L Chloride 107 (98-107) mmol/L Carbon Dioxide 18 L (22-30) mmol/L BUN 75 H (9-20) mg/dL Creatinine 8.24 H* (0.66-1.25) mg/dL Glucose 233 H (74-99) mg/dL Calcium 7.8 L (8.4-10.2) mg/dL Adrenal panel 02/13/22 Range/Units 08:52 Sodium 138 (137-145) mmol/L Potassium 3.8 (3.5-5.1) mmol/L Chloride 107 (98-107) mmol/L Carbon Dioxide 18 L (22-30) mmol/L BUN 75 H (9-20) mg/dL Creatinine 8.24 H* (0.66-1.25) mg/dL Glucose 233 H (74-99) mg/dL Calcium 7.8 L (8.4-10.2) mg/dL - Imaging US - abdomen: report reviewed, image reviewed Assessment and Plan Assessment: Impression: atypical renal cyst right, dyspnea, arf indeterminate cause unlikely urologic. History of coronary artery disease. History of COPD. Recommendations: It is unlikely be limited retention that he has is contributing to his renal failure. He does have BPH and has been on Flomax. I would suspect that if the renal failure was due to urine retention he would have hydronephrosis which she does not. Obviously if the creatinine clears quickly welling catheter we would rethink that scenario however it doesn't appear as if that's case. I will follow this patient. With regards to the atypical right renal cyst this will need to be followed with serial ultrasounds that he cannot receive any contrast for an MRI or computed tomography scan.
[2022-02-14] MEDS: SODIUM BICARBONATE TAB 650 MG TAB PO SCH ×2 (10:35→21:01)
--- NOTE | 2022-02-14 10:44 | XR ---
EXAMINATION TYPE: XR chest 1V portable DATE OF EXAM: 02/14/2022 Comparison: 02/11/2022 Clinical History: 76-year-old male CHF, shortness of breath Findings: Median sternotomy wires are present post CABG clips. Heart is enlarged. Diffuse interstitial and ally hilar opacities are present. No sizable pleural effusion. Impression: Cardiomegaly with perihilar and interstitial opacities. Correlate for CHF with early interstitial pul monary edema.
[2022-02-14] MEDS: FUROSEMIDE 10 MG/ML 10 ML VIAL IV SCH ×2 (11:21→21:02)
[2022-02-14 11:41] LABS: Glucose,Whole Blood 235 mg/dL (70-110)
[2022-02-14] MEDS: INSULIN ASPART (NovoLOG) 100 UNIT/ML VIAL SQ SCH ×3 (12:57→21:04)
--- NOTE | 2022-02-14 13:08 | P.PN ---
Subjective Progress Note Date: 02/14/22 Request from nephrology for placement of non-tunneled hemodialysis catheter. The patient was examined and this was discussed with the patient as well as his family was in attendance. The procedure, risk and benefits were discussed. Recommend femoral approach the patient's current pulmonary status. All questions answered patient satisfaction. Consent form signed. Objective - Vital Signs Vital signs: Vital Signs Temp 97.8 F 02/14/22 07:53 Pulse 59 L 02/14/22 12:49 Resp 19 02/14/22 12:49 BP 129/63 02/14/22 12:49 Pulse Ox 97 02/14/22 12:49 FiO2 50 02/14/22 00:12 Intake & Output 02/13/22 02/14/22 02/14/22 18:59 06:59 18:59 Intake Total 928 118 180 Output Total 650 300 Balance 278 -182 180 Weight 60.9 kg 60.6 kg Intake: Oral 928 118 180 Output: Urine 650 300 Other: Voiding Method Indwelling Catheter Indwelling Catheter Indwelling Catheter - Labs CBC & Chem 7: 02/13/22 08:52 02/13/22 08:52 Labs: Abnormal Lab Results - Last 24 Hours (Table) 02/13/22 02/13/22 02/13/22 Range/Units 08:52 16:35 20:06 POC Glucose (mg/dL) 188 H 269 H (70-110) mg/dL Procalcitonin 0.41 H (0.02-0.09) ng/mL 02/14/22 02/14/22 Range/Units 05:56 11:39 POC Glucose (mg/dL) 177 H 235 H (70-110) mg/dL Procalcitonin (0.02-0.09) ng/mL
--- NOTE | 2022-02-14 13:11 | P.OP ---
Date of Procedure: 02/14/22 Preoperative Diagnosis: Acute renal failure with need for hemodialysis. Postoperative Diagnosis: Same. Procedure(s) Performed: Ultrasound-guided cannulation right femoral vein with placement of a non- tunneled hemodialysis catheter. Anesthesia: local Surgeon: Walker Patrick Estimated Blood Loss (ml): 5 IV fluids (ml): 0 Urine output (ml): 0 Pathology: none sent Condition: stable Disposition: no change Indications for Procedure: Patient is a 76-year-old male who is currently hospitalized for of problems including renal failure. Patient is in need of somewhat urgent hemodialysis patient is offered a non-tunneled hemodialysis catheter. The procedure, risk and benefits were discussed. Patient wishes to proceed. Description of Procedure: Patient was placed supine in his bed. The right inguinal area was sterilely prepped and draped in usual manner. Ultrasound was utilized to identify the common femoral vein. 1% Xylocaine was utilized for local anesthesia of the tissues overlying the right femoral vein. Through this anesthetized area and with the aid of ultrasound a multipurpose needle was utilized to cannulate the vein. Once cannulated Softip guidewire was advanced into the vein. The needle was withdrawn. Vessel dilators were advanced and withdrawn from over the guidewire. Finally a non-tunneled hemodialysis catheter was advanced over the guidewire. Guidewire was withdrawn. Blood was easily aspirated via both ports. Each port was then flushed with heparinized saline solution. The catheter was secured to the skin with nylon suture. Proper dressings were applied. Patient tolerated the procedure well.
[2022-02-14 16:34] LABS: Glucose,Whole Blood 202 mg/dL (70-110)
[2022-02-14 20:40] LABS: Glucose,Whole Blood 193 mg/dL (70-110)
[2022-02-14] MEDS: PRAVASTATIN SODIUM 40 MG TAB PO SCH (21:01)
[2022-02-14] MEDS: FAMOTIDINE 20 MG TAB PO SCH (21:01)
[2022-02-15] MEDS: HEPARIN SODIUM,PORCINE/PF 5,000 UNIT/0.5 ML SYRINGE SQ SCH ×3 (00:25→15:30)
--- NOTE | 2022-02-15 05:31 | PN ---
PROGRESS NOTE DATE OF SERVICE: 02/14/2022 SUBJECTIVE: This 76-year-old gentleman was admitted with acute kidney injury, also had CHF also. The patient was seen by Dr. Luu. The patient also had metabolic acidosis. Dialysis catheter replacement was done by Dr. Charlton. The patient was closely monitored. No chest pain. No palpitations. PAST MEDICAL HISTORY: Reviewed. REVIEW OF SYSTEMS: 14-point review of systems is negative except as mentioned earlier. CURRENT MEDICATIONS: Reviewed include Lasix, and doses and rest of medication reviewed. PHYSICAL EXAM: VITAL SIGNS: Pulse is 59, blood pressure ntd, respirations 19. HEENT: Conjunctivae normal. NECK: No JVD. CARDIOVASCULAR: S1, S2. RESPIRATIONS: Diminished at the bases, few scattered rhonchi. ABDOMEN: Soft. NERVOUS SYSTEM: No focal deficits. LABORATORY DATA: Glucose 202. Other labs are noted. ASSESSMENT: 1. Acute on chronic kidney injury, on hemodialysis newly started. 2. Congestive heart failure with acute exacerbation. 3. Right kidney complex mass. 4. Bilateral nonobstructing kidney stones. 5. Diabetes mellitus type 2. 6. Multiple medical issues. PLAN: Recommended to continue current medications and symptomatic treatment. Hemodialysis being started by Nephrology. I would recommend repeat labs. Monitor blood sugars closely. Discussed with the family. We will monitor the creatinine and the patient's volume status and general well-being closely. MMODL / IJN: [id number] / MTDD
[2022-02-15 06:16] LABS: Glucose,Whole Blood 162 mg/dL (70-110)
[2022-02-15] MEDS: INSULIN ASPART (NovoLOG) 100 UNIT/ML VIAL SQ SCH ×4 (06:19→20:41)
[2022-02-15 08:09] LABS: Albumin 3.6 g/dL (3.5-5.0); Magnesium 1.9 mg/dL (1.6-2.3); Phosphorus 5.5 mg/dL (2.5-4.5); Total Bilirubin 0.5 mg/dL (0.2-1.3); Total Protein 6.8 g/dL (6.3-8.2)
[2022-02-15] MEDS: AZITHROMYCIN 500 MG in SODIUM CHLORIDE 0.9% 250 ML IVPB SCH (08:18)
[2022-02-15] MEDS: SODIUM BICARBONATE TAB 650 MG TAB PO SCH ×2 (08:19→20:41)
[2022-02-15] MEDS: amLODIPine 5 MG TAB PO SCH (08:19)
[2022-02-15] MEDS: METOPROLOL TARTRATE 50 MG TAB PO SCH ×3 (08:19→20:41)
[2022-02-15] MEDS: FUROSEMIDE 10 MG/ML 10 ML VIAL IV SCH ×2 (08:19→20:42)
[2022-02-15] MEDS: TAMSULOSIN 0.4 MG CAP.ER.24H PO SCH (08:19)
[2022-02-15 08:20] LABS: Basophils % (A) 0 %; Eosinophils # (A) 0.1 k/uL (0-0.7); Eosinophils % (A) 1 %; HCT 29.3 % (39.0-53.0); HGB 9.7 gm/dL (13.0-17.5); Lymphocytes # (A) 1.9 k/uL (1.0-4.8); Lymphocytes % (A) 22 %; MCV 99.7 fL (80.0-100.0); Macrocytosis Slight; Mean Platelet Volume 9.4; Monocytes # (A) 0.4 k/uL (0-1.0); Monocytes % (A) 4 %; Neutrophils % (A) 71 %; Platelet Count 245 k/uL (150-450); RBC 2.94 m/uL (4.30-5.90); RDW 15.2 % (11.5-15.5); WBC 8.5 k/uL (3.8-10.6)
--- NOTE | 2022-02-15 09:26 | P.PN ---
Subjective Patient is seen in follow-up for acute kidney injury. Started on hemodialysis 02/14/2022. No problems with dialysis yesterday. Has Hilario catheter. Catheter had to be flushed last night. Nonoliguric. On 6 L nasal cannula. No vomiting or diarrhea. Oral intake poor. Vital signs are stable. General: Awake. No acute distress. HEENT: Head exam is unremarkable. On nasal cannula. LUNGS: Breath sounds decreased. HEART: Rate and Rhythm are regular. ABDOMEN: Soft, no distention. EXTREMITITES: No edema. Objective - Vital Signs Vital signs: Vital Signs Temp 97.7 F 02/15/22 08:17 Pulse 69 02/15/22 08:33 Resp 20 02/15/22 08:33 BP 144/75 02/15/22 08:17 Pulse Ox 96 02/15/22 08:17 FiO2 50 02/14/22 00:12 Intake & Output 02/14/22 02/15/22 02/15/22 18:59 06:59 18:59 Intake Total 1580 420 Output Total 1700 850 Balance -120 -850 420 Weight 42 kg Intake: Oral 1080 420 Hemodialysis 500 Output: Urine 700 850 Hemodialysis 1000 Other: Voiding Method Indwelling Catheter Indwelling Catheter Indwelling Catheter # Bowel Movements 1 - Labs CBC & Chem 7: 02/15/22 07:32 02/15/22 07:32 Labs: Abnormal Lab Results - Last 24 Hours (Table) 02/14/22 02/14/22 02/14/22 Range/Units 11:39 11:45 16:33 RBC (4.30-5.90) m/uL Hgb (13.0-17.5) gm/dL Hct (39.0-53.0) % Carbon Dioxide (22-30) mmol/L BUN (9-20) mg/dL Creatinine (0.66-1.25) mg/dL Glucose (74-99) mg/dL POC Glucose (mg/dL) 235 H 202 H (70-110) mg/dL Calcium (8.4-10.2) mg/dL Phosphorus (2.5-4.5) mg/dL Iron 40 L (65-175) ug/dL AST (17-59) U/L 02/14/22 02/15/22 02/15/22 Range/Units 20:39 06:14 07:32 RBC 2.94 L (4.30-5.90) m/uL Hgb 9.7 L (13.0-17.5) gm/dL Hct 29.3 L (39.0-53.0) % Carbon Dioxide (22-30) mmol/L BUN (9-20) mg/dL Creatinine (0.66-1.25) mg/dL Glucose (74-99) mg/dL POC Glucose (mg/dL) 193 H 162 H (70-110) mg/dL Calcium (8.4-10.2) mg/dL Phosphorus (2.5-4.5) mg/dL Iron (65-175) ug/dL AST (17-59) U/L 02/15/22 Range/Units 07:32 RBC (4.30-5.90) m/uL Hgb (13.0-17.5) gm/dL Hct (39.0-53.0) % Carbon Dioxide 20 L (22-30) mmol/L BUN 79 H (9-20) mg/dL Creatinine 6.99 H (0.66-1.25) mg/dL Glucose 137 H (74-99) mg/dL POC Glucose (mg/dL) (70-110) mg/dL Calcium 8.0 L (8.4-10.2) mg/dL Phosphorus 5.5 H (2.5-4.5) mg/dL Iron (65-175) ug/dL AST 14 L (17-59) U/L Assessment and Plan Plan: Assessment: 1. Acute kidney injury secondary to ATN with component of urinary retention. No hydronephrosis noted on kidney ultrasound. Creatinine was 0.8 in August 2021. Creatinine was over 7 this admission. Rule out GN. Started on hemodialysis 02/14/2022 via femoral catheter. 2. Metabolic acidosis secondary to acute kidney injury. Metformin held. Better. On oral bicarb. 3. Anemia. Rule out iron deficiency. 4. Right kidney complex cystic lesion. Urology consulted. 5. Urinary retention. Has Hilario catheter. On Flomax. 6. Hypertension with chronic kidney disease. Stable. 7. Acute on chronic diastolic CHF with moderate aortic and mitral regurgitation. Cardiology following. 8. Diabetes mellitus. 9. Hyperphosphatemia secondary to acute kidney injury. Phosphorus 5.5 today. Expect further improvement postdialysis. Plan: Second treatment of hemodialysis today and third treatment tomorrow. Add IV iron. Maintain IV Lasix. Follow-up pending serologies - negative so far. Continue to monitor for renal recovery. Kidney biopsy will also be considered pending above results and recovery of renal function.
--- NOTE | 2022-02-15 10:52 | P.PN ---
Subjective Progress Note Date: 02/15/22 Dialysis catheter is working well. Objective - Vital Signs Vital signs: Vital Signs Temp 97.7 F 02/15/22 08:17 Pulse 69 02/15/22 08:33 Resp 20 02/15/22 08:33 BP 144/75 02/15/22 08:17 Pulse Ox 96 02/15/22 08:17 FiO2 50 02/14/22 00:12 Intake & Output 02/14/22 02/15/22 02/15/22 18:59 06:59 18:59 Intake Total 1580 420 Output Total 1700 850 Balance -120 -850 420 Weight 42 kg Intake: Oral 1080 420 Hemodialysis 500 Output: Urine 700 850 Hemodialysis 1000 Other: Voiding Method Indwelling Catheter Indwelling Catheter Indwelling Catheter # Bowel Movements 1 - Labs CBC & Chem 7: 02/15/22 07:32 02/15/22 07:32 Labs: Abnormal Lab Results - Last 24 Hours (Table) 02/14/22 02/14/22 02/14/22 Range/Units 11:39 11:45 16:33 RBC (4.30-5.90) m/uL Hgb (13.0-17.5) gm/dL Hct (39.0-53.0) % Carbon Dioxide (22-30) mmol/L BUN (9-20) mg/dL Creatinine (0.66-1.25) mg/dL Glucose (74-99) mg/dL POC Glucose (mg/dL) 235 H 202 H (70-110) mg/dL Calcium (8.4-10.2) mg/dL Phosphorus (2.5-4.5) mg/dL Iron 40 L (65-175) ug/dL AST (17-59) U/L 02/14/22 02/15/22 02/15/22 Range/Units 20:39 06:14 07:32 RBC 2.94 L (4.30-5.90) m/uL Hgb 9.7 L (13.0-17.5) gm/dL Hct 29.3 L (39.0-53.0) % Carbon Dioxide (22-30) mmol/L BUN (9-20) mg/dL Creatinine (0.66-1.25) mg/dL Glucose (74-99) mg/dL POC Glucose (mg/dL) 193 H 162 H (70-110) mg/dL Calcium (8.4-10.2) mg/dL Phosphorus (2.5-4.5) mg/dL Iron (65-175) ug/dL AST (17-59) U/L 02/15/22 Range/Units 07:32 RBC (4.30-5.90) m/uL Hgb (13.0-17.5) gm/dL Hct (39.0-53.0) % Carbon Dioxide 20 L (22-30) mmol/L BUN 79 H (9-20) mg/dL Creatinine 6.99 H (0.66-1.25) mg/dL Glucose 137 H (74-99) mg/dL POC Glucose (mg/dL) (70-110) mg/dL Calcium 8.0 L (8.4-10.2) mg/dL Phosphorus 5.5 H (2.5-4.5) mg/dL Iron (65-175) ug/dL AST 14 L (17-59) U/L
[2022-02-15 11:40] LABS: Glucose,Whole Blood 166 mg/dL (70-110)
--- NOTE | 2022-02-15 13:15 | P.PN ---
Subjective Progress Note Date: 02/15/22 Patient is seen today doing well resting comfortably in bed he is getting ready dialysis. He denies chest pain or increasing shortness of breath. Patient received his first dialysis treatment yesterday they removed half a liter. During dialysis today patient went into atrial fibrillation. He was asymp tomatic with the episode will start Eliquis 2.5 mg twice a day and increase his Toprol to 50 mg 3 times a day. Blood pressure is slightly elevated prior to dialysis 144/75 will continue to monitor. BUN 79 creatinine 6.99 today. Patient is also on Lasix 40 mg every 12. Objective - Vital Signs Vital signs: Vital Signs Temp 97.7 F 02/15/22 08:17 Pulse 59 L 02/15/22 11:57 Resp 20 02/15/22 08:33 BP 136/70 02/15/22 11:57 Pulse Ox 96 02/15/22 11:57 FiO2 50 02/14/22 00:12 Intake & Output 02/14/22 02/15/22 02/15/22 18:59 06:59 18:59 Intake Total 1580 420 Output Total 1700 850 325 Balance -120 -850 95 Weight 42 kg Intake: Oral 1080 420 Hemodialysis 500 Output: Urine 700 850 325 Hemodialysis 1000 Other: Voiding Method Indwelling Catheter Indwelling Catheter Indwelling Catheter # Bowel Movements 1 - Exam PHYSICAL EXAM: VITAL SIGNS: Reviewed. GENERAL: Well-developed in no acute distress. HEENT: Head is normocephalic. Pupils are equal, round. Sclerae anicteric. Mucous membranes of the mouth are moist. NECK: Supple. No JVD or thyromegaly RESPIRATORY: Respirations even and unlabored. Lungs diminished to auscultation bilaterally. CARDIO: Regular rate and rhythm. S1 and S2 heard. No murmur or gallops. EXTREMITIES: Normal range of motion. No clubbing or cyanosis. Peripheral pulses intact. Negative for bilateral lower extremity edema NEURO: Orientated to person, time, mood is appropriate - Labs CBC & Chem 7: 02/15/22 07:32 02/15/22 07:32 Labs: Abnormal Lab Results - Last 24 Hours (Table) 02/14/22 02/14/22 02/14/22 Range/Units 11:45 16:33 20:39 RBC (4.30-5.90) m/uL Hgb (13.0-17.5) gm/dL Hct (39.0-53.0) % Carbon Dioxide (22-30) mmol/L BUN (9-20) mg/dL Creatinine (0.66-1.25) mg/dL Glucose (74-99) mg/dL POC Glucose (mg/dL) 202 H 193 H (70-110) mg/dL Calcium (8.4-10.2) mg/dL Phosphorus (2.5-4.5) mg/dL Iron 40 L (65-175) ug/dL AST (17-59) U/L 02/15/22 02/15/22 02/15/22 Range/Units 06:14 07:32 07:32 RBC 2.94 L (4.30-5.90) m/uL Hgb 9.7 L (13.0-17.5) gm/dL Hct 29.3 L (39.0-53.0) % Carbon Dioxide 20 L (22-30) mmol/L BUN 79 H (9-20) mg/dL Creatinine 6.99 H (0.66-1.25) mg/dL Glucose 137 H (74-99) mg/dL POC Glucose (mg/dL) 162 H (70-110) mg/dL Calcium 8.0 L (8.4-10.2) mg/dL Phosphorus 5.5 H (2.5-4.5) mg/dL Iron (65-175) ug/dL AST 14 L (17-59) U/L 02/15/22 Range/Units 11:39 RBC (4.30-5.90) m/uL Hgb (13.0-17.5) gm/dL Hct (39.0-53.0) % Carbon Dioxide (22-30) mmol/L BUN (9-20) mg/dL Creatinine (0.66-1.25) mg/dL Glucose (74-99) mg/dL POC Glucose (mg/dL) 166 H (70-110) mg/dL Calcium (8.4-10.2) mg/dL Phosphorus (2.5-4.5) mg/dL Iron (65-175) ug/dL AST (17-59) U/L Assessment and Plan Assessment: New-onset atrial fibrillation Shortness of breath Acute hypoxic respiratory failure Acute on chronic kidney disease Fluid overload secondary to above Abnormal troponin, ACS ruled out, likely secondary to acute renal failure Coronary artery disease with previous CABG Valvular heart disease Hypertension Hyperlipidemia Diabetes Plan: Start ELiquis 2.5 mg twice a day Increase Toprol to 50 mg 3 times a day Continue with all current cardiac medications Continue with IV diuretics per nephrology Further recommendations based on clinical course The above impression and plan of care have been discussed and directed by the signing physician. Kassi Tan, nurse practitioner, acting as scribe for signing physician.
[2022-02-15] MEDS: SODIUM FERRIC GLUCONAT-SUCROSE 125 MG in SODIUM CHLORIDE 0.9% 100 ML IVPB SCH (14:42)
[2022-02-15] MEDS ORDERED: HYDROcodone/APAP 5-325MG 1 EACH TAB PO PRN (15:01)
[2022-02-15] MEDS ORDERED: MECLIZINE 25 MG TAB PO PRN (15:01)
[2022-02-15] MEDS: ALPRAZolam 0.25 MG TAB PO PRN (15:29)
[2022-02-15 16:17] LABS: Glucose,Whole Blood 236 mg/dL (70-110)
[2022-02-15 20:02] LABS: Glucose,Whole Blood 223 mg/dL (70-110)
[2022-02-15] MEDS: APIXABAN 2.5 MG TABLET PO SCH (20:40)
[2022-02-15] MEDS: PRAVASTATIN SODIUM 40 MG TAB PO SCH (20:41)
[2022-02-15] MEDS: FAMOTIDINE 20 MG TAB PO SCH (20:41)
[2022-02-15] MEDS: allopurinoL 100 MG TAB PO SCH (20:41)
[2022-02-15] MEDS: AZELASTINE 137MCG/SPRAY NASAL SCH (20:42)
--- NOTE | 2022-02-15 23:53 | PN ---
PROGRESS NOTE DATE OF SERVICE: 02/14/2022 SUBJECTIVE: Andrea is a 76-year-old gentleman with history of coronary artery disease, status post CABG, moderate aortic regurgitation, hypertension and dyslipidemia who developed progressively worsening renal failure since August of this year, came in to hospital recently with symptoms of shortness of breath. He was found to be in acute on chronic renal failure and the plan was to initiate hemodialysis on him. The patient has normal LV function and had a recent negative stress test. OBJECTIVE: GENERAL: On exam comfortable at rest. VITAL SIGNS: Stable. NECK: There is no jugular venous distention. CHEST: Reveals good air entry bilaterally. HEART: Exam reveals first and second heart sounds. Systolic murmur at the apex. ABDOMEN: Soft. EXTREMITIES: Revealed mild edema. Peripheral pulses are felt. MEDICATIONS: Patient is currently on, 1. Norvasc. 2. Antibiotics. 3. Lasix. 4. Lopressor. 5. Pravachol. ASSESSMENT: 1. Shortness of breath secondary to fluid overload related to acute worsening of chronic renal failure. 2. Coronary artery disease, status post coronary artery bypass grafting. PLAN: The patient will be started on hemodialysis today. MMODL / IJN: [id number] /
[2022-02-16] MEDS: HEPARIN SODIUM,PORCINE/PF 5,000 UNIT/0.5 ML SYRINGE SQ SCH (00:26)
--- NOTE | 2022-02-16 02:53 | PN ---
PROGRESS NOTE DATE OF SERVICE: 02/15/2022 SUBJECTIVE: This 76-year-old gentleman, who was admitted with acute on chronic kidney injury, also had a newly started hemodialysis. The patient is being closely monitored. Creatinine is and hemoglobin is 7.7. The patient is slightly anxious. The blood pressure is also being monitored. PAST MEDICAL HISTORY: Reviewed. The patient is hypoxic. REVIEW OF SYSTEMS: A 14-point review of systems is negative as mentioned earlier. CURRENT MEDICATIONS: Reviewed, which include Norvasc, rest of the medication noted. PHYSICAL EXAMINATION: VITAL SIGNS: Pulse is 69, blood pressure 140/76, respirations 20. HEENT: Conjunctivae normal. NECK: No JVD. CARDIOVASCULAR: S1, S2. RESPIRATION: Breath sounds diminished at the bases. Scattered rhonchi and crackles. ABDOMEN: Soft. NERVOUS SYSTEM: Nonfocal. LABORATORY DATA: Reviewed. ASSESSMENT: 1. Acute on chronic kidney injury, on hemodialysis, newly started. 2. Congestive heart failure acute exacerbation. 3. Right kidney complex mass. 4. Bilateral nonobstructing kidney stones. 5. Diabetes mellitus, type 2. 6. Multiple medical issues. 7. Anxiety. RECOMMENDATIONS: I recommend to continue current management and symptomatic treatment. Continue with hemodialysis. We will review the chest x-ray tomorrow, and incentive spirometry. Continue the rest of the medications. Xanax p.r.n. Overall, prognosis is guarded because of multiple complex medical issues. Further recommendations to follow. MMYESENIAL / IJN: [id number] / MTDJordana
[2022-02-16 06:09] LABS: Glucose,Whole Blood 140 mg/dL (70-110)
[2022-02-16] MEDS: INSULIN ASPART (NovoLOG) 100 UNIT/ML VIAL SQ SCH ×4 (06:14→20:40)
--- NOTE | 2022-02-16 08:01 | XR ---
EXAMINATION TYPE: XR chest 1V portable DATE OF EXAM: 02/16/2022 COMPARISON: 02/14/2022 HISTORY: Shortness of breath TECHNIQUE: Single frontal view of the chest is obtained. FINDINGS: Soft tissue artifact noted in the upper lobes bilaterally. Persistent predominantly inters titial infiltrates slightly improved. Elevated left hemidiaphragm with cardiomegaly and postoperative changes. Underlying COPD. Osseous structures are stable. IMPRESSION: 1. COPD with improving interstitial edema
[2022-02-16] MEDS: SODIUM BICARBONATE TAB 650 MG TAB PO SCH (08:11)
[2022-02-16] MEDS: amLODIPine 5 MG TAB PO SCH (08:11)
[2022-02-16] MEDS: APIXABAN 2.5 MG TABLET PO SCH (08:11)
[2022-02-16] MEDS: POTASSIUM CHLORIDE ER 10 MEQ TAB.ER.PRT PO SCH (08:11)
[2022-02-16] MEDS: FUROSEMIDE 10 MG/ML 10 ML VIAL IV SCH (08:11)
[2022-02-16] MEDS: ASPIRIN 81 MG PO SCH (08:11)
[2022-02-16] MEDS: allopurinoL 100 MG TAB PO SCH (08:11)
[2022-02-16] MEDS: METOPROLOL TARTRATE 50 MG TAB PO SCH (08:11)
[2022-02-16] MEDS: TAMSULOSIN 0.4 MG CAP.ER.24H PO SCH (08:11)
[2022-02-16] MEDS: AZELASTINE 137MCG/SPRAY NASAL SCH (08:12)
[2022-02-16] MEDS: AZITHROMYCIN 500 MG in SODIUM CHLORIDE 0.9% 250 ML IVPB SCH (08:21)
[2022-02-16] MEDS: ALPRAZolam 0.25 MG TAB PO PRN (08:23)
--- NOTE | 2022-02-16 08:54 | XR ---
EXAMINATION TYPE: XR chest 1V DATE OF EXAM: 02/16/2022 COMPARISON: 02/16/2022 HISTORY: Shortness of breath TECHNIQUE: Single frontal view of the chest is obtained. FINDINGS: There is a diffuse interstitial pattern. Could not exclude tiny bilateral effusions. Under lying COPD. No pneumothorax. Heart is enlarged. Postsurgical changes with elevated left hemidiaphragm . Subsegmental changes seen. IMPRESSION: 1. COPD with superimposed CHF similar to recent exam. 2. Basilar subsegmental consolidation most likely in the basis of atelectasis.
--- NOTE | 2022-02-16 09:37 | P.PN ---
Subjective Patient is seen in follow-up for acute kidney injury. Started on hemodialysis 02/14/2022. Went into A. fib with RVR towards end of the treatment yesterday and resolved spontaneously. Has Hilario catheter. Nonoliguric. On 6 L nasal cannula. No vomiting or diarrhea. Oral intake poor. Continues to feel short of breath. Vital signs are stable. General: Awake. No acute distress. HEENT: Head exam is unremarkable. On nasal cannula. LUNGS: Breath sounds decreased. HEART: Rate and Rhythm are regular. ABDOMEN: Soft, no distention. EXTREMITITES: No edema. Objective - Vital Signs Vital signs: Vital Signs Temp 98.3 F 02/16/22 04:00 Pulse 85 02/16/22 08:25 Resp 18 02/16/22 08:25 BP 171/77 02/16/22 08:09 Pulse Ox 95 02/16/22 08:09 FiO2 50 02/14/22 00:12 Intake & Output 02/15/22 02/16/22 02/16/22 18:59 06:59 18:59 Intake Total 920 180 118 Output Total 1725 925 Balance -805 -745 118 Weight 38.5 kg Intake: Oral 420 180 118 Hemodialysis 500 Output: Urine 325 925 Hemodialysis 1400 Other: Voiding Method Indwelling Catheter Indwelling Catheter Indwelling Catheter # Bowel Movements 1 - Labs CBC & Chem 7: 02/15/22 07:32 02/15/22 07:32 Labs: Abnormal Lab Results - Last 24 Hours (Table) 02/15/22 02/15/22 02/15/22 Range/Units 11:39 16:16 19:57 POC Glucose (mg/dL) 166 H 236 H 223 H (70-110) mg/dL 02/16/22 Range/Units 06:07 POC Glucose (mg/dL) 140 H (70-110) mg/dL Assessment and Plan Plan: Assessment: 1. Acute kidney injury secondary to ATN with component of urinary retention. No hydronephrosis noted on kidney ultrasound. Creatinine was 0.8 in August 2021. Creatinine was over 7 this admission. Rule out GN. Started on hemodialysis 02/14/2022 via femoral catheter. 2. Metabolic acidosis secondary to acute kidney injury. Metformin held. Better. Expect further improvement with dialysis. On oral bicarb. 3. Anemia. Iron deficiency noted. 4. Right kidney complex cystic lesion. Urology following. 5. Urinary retention. Has Hilario catheter. On Flomax. 6. Hypertension with chronic kidney disease. 7. Acute on chronic diastolic CHF with moderate aortic and mitral regurgitation. Cardiology following. 8. Diabetes mellitus. 9. Hyperphosphatemia secondary to acute kidney injury. Phosphorus 5.5 today. Expect further improvement postdialysis. 10. Volume overload. Plan: Third treatment of hemodialysis today. Maintain IV iron. Change IV Lasix to oral torsemide. Follow-up pending serologies - negative so far. Continue to monitor for renal recovery. Kidney biopsy will also be considered pending above results and recovery of renal function.
[2022-02-16 09:54] LABS: Basophils % (A) 0 %; Eosinophils # (A) 0.1 k/uL (0-0.7); Eosinophils % (A) 2 %; HGB 9.1 gm/dL (13.0-17.5); Lymphocytes # (A) 0.7 k/uL (1.0-4.8); Lymphocytes % (A) 13 %; MCH 32.7 pg (25.0-35.0); MCHC 32.6 g/dL (31.0-37.0); MCV 100.5 fL (80.0-100.0); Macrocytosis Slight; Mean Platelet Volume 9.5; Monocytes # (A) 0.4 k/uL (0-1.0); Monocytes % (A) 7 %; Neutrophils # (A) 4.2 k/uL (1.3-7.7); Neutrophils % (A) 77 %; Platelet Count 221 k/uL (150-450); RBC 2.79 m/uL (4.30-5.90); RDW 15.5 % (11.5-15.5); WBC 5.5 k/uL (3.8-10.6)
[2022-02-16 10:23] LABS: African American GFR (CKD) 8 (>60 ml/min/1.73 sqM); Anion Gap 15 mmol/L; Blood Urea Nitrogen 78 mg/dL (9-20); Calcium 7.9 mg/dL (8.4-10.2); Carbon Dioxide 21 mmol/L (22-30); Chloride 102 mmol/L (98-107); Glucose 202 mg/dL (74-99); Magnesium 1.8 mg/dL (1.6-2.3); Non-African American GFR(CKD) 7 (>60 ml/min/1.73 sqM); Potassium 4.1 mmol/L (3.5-5.1); Sodium 138 mmol/L (137-145)
--- NOTE | 2022-02-16 11:27 | P.PN ---
Subjective This is a 76 year with a past medical history significant for coronary artery disease with previous CABG, moderate aortic regurgitation, hypertension, hyperlipidemia, diabetes, and chronic kidney disease. Patient follows in the office with Dr. Cortés. We have been asked to see the patient in consultation for CHF and elevated troponin. Patient reports having progressive shortness of breath for the past two months which prompted him to to come to the ER. He required bipap and states his breathing is improved since coming to the hospital. He was found to be in acute renal failure with a creatinine of 7.16. He reports his baseline is around 3. DIAGNOSTICS: * Most recent echocardiogram obtained in June 2021 revealed ejection fraction 55%, moderate aortic regurgitation, moderate mitral regurgitation, mild to moderate tricuspid regurgitation * Patient underwent Lexiscan stress test in June 2021 which was negative for acute ischemia 02/14: Patient started on hemodialysis 02/15: During dialysis today patient went into atrial flutter. He was asymptomatic with the episode will start Eliquis 2.5 mg twice a day and increase his Toprol to 50 mg 3 times a day. 02/16/2022: Patient seen and examined at bedside, no acute distress. Denies any chest pain, or palpitations. He does endorse continuing shortness of breath. EKG reviewed from 02/15 which revealed atrial flutter. Telemetry reviewed patient is maintaining sinus rhythm with heart rates in the 6070s. Blood pressure 144/75, heart rate 72. Nephrology following for dialysis PHYSICAL EXAM: VITAL SIGNS: Reviewed. GENERAL: Well-developed in no acute distress. HEENT: Head is normocephalic. Pupils are equal, round. Sclerae anicteric. Neck supple. No JVD LUNGS: Respirations even and unlabored. Lungs diminished. HEART: Regular rate and rhythm. S1 and S2 heard. + systolic murmur. ABDOMEN: Soft. Nondistended. Nontender. EXTREMITIES: Normal range of motion. No clubbing or cyanosis. Peripheral pulses intact. No lower extremity edema NEUROLOGIC: Awake and alert. Oriented x 3. ASSESSMENT: Shortness of breath New onset typical atrial flutter, started on Eliquis, currently maintaining sinus rhythm Acute hypoxic respiratory failure Acute renal failure, started hemodialysis 02/14/2022 Fluid overload secondary to above Abnormal troponin, ACS ruled out, likely secondary to acute renal failure Coronary artery disease with previous CABG Valvular heart disease Hypertension Hyperlipidemia Diabetes PLAN: EKG reviewed from 02/15 which revealed atrial flutter Continue anticoagulation with Eliquis Recommend metoprolol succinate 50mg BID Nephrology managing diuresis and hemodialysis, transitioned to Torsemide 40mg daily On discharge, recommend follow up with Dr. Cortés in 1-2 weeks, possibly will need atrial flutter ablation in the future as an outpatient Further recommendations pending patient course Nurse practitioner note has been reviewed by physician. Signing provider agrees with the documented findings, assessment, and plan of care. Objective - Vital Signs Vital signs: Vital Signs Temp 98.3 F 02/16/22 04:00 Pulse 72 02/16/22 04:00 Resp 14 02/16/22 04:00 BP 144/75 02/16/22 04:00 Pulse Ox 90 L 02/16/22 04:00 FiO2 50 02/14/22 00:12 Intake & Output 02/15/22 02/16/22 02/16/22 18:59 06:59 18:59 Intake Total 920 180 Output Total 1725 925 Balance -805 -745 Weight 38.5 kg Intake: Oral 420 180 Hemodialysis 500 Output: Urine 325 925 Hemodialysis 1400 Other: Voiding Method Indwelling Catheter Indwelling Catheter # Bowel Movements 1 - Labs CBC & Chem 7: 02/16/22 08:50 02/16/22 09:10 Labs: Abnormal Lab Results - Last 24 Hours (Table) 02/15/22 02/15/22 02/15/22 Range/Units 07:32 07:32 11:39 RBC 2.94 L (4.30-5.90) m/uL Hgb 9.7 L (13.0-17.5) gm/dL Hct 29.3 L (39.0-53.0) % Carbon Dioxide 20 L (22-30) mmol/L BUN 79 H (9-20) mg/dL Creatinine 6.99 H (0.66-1.25) mg/dL Glucose 137 H (74-99) mg/dL POC Glucose (mg/dL) 166 H (70-110) mg/dL Calcium 8.0 L (8.4-10.2) mg/dL Phosphorus 5.5 H (2.5-4.5) mg/dL AST 14 L (17-59) U/L 02/15/22 02/15/22 02/16/22 Range/Units 16:16 19:57 06:07 RBC (4.30-5.90) m/uL Hgb (13.0-17.5) gm/dL Hct (39.0-53.0) % Carbon Dioxide (22-30) mmol/L BUN (9-20) mg/dL Creatinine (0.66-1.25) mg/dL Glucose (74-99) mg/dL POC Glucose (mg/dL) 236 H 223 H 140 H (70-110) mg/dL Calcium (8.4-10.2) mg/dL Phosphorus (2.5-4.5) mg/dL AST (17-59) U/L
[2022-02-16 12:05] LABS: Glucose,Whole Blood 257 mg/dL (70-110)
[2022-02-16] MEDS ORDERED: ALTEPLASE 2 MG VIAL (CATHFLO) IV STA (13:29)
[2022-02-16] MEDS: SODIUM FERRIC GLUCONAT-SUCROSE 125 MG in SODIUM CHLORIDE 0.9% 100 ML IVPB SCH (13:34)
[2022-02-16 13:46] LABS: Anti-Glomerular Basement Memb 6 UNITS (0-20)
[2022-02-16] MEDS: ALTEPLASE 2 MG VIAL (CATHFLO) IV STA ×2 (14:01→14:02)
[2022-02-16 15:04] LABS: C-ANCA <1:20 Titer (<1:20)
[2022-02-16 16:48] LABS: Glucose,Whole Blood 131 mg/dL (70-110)
--- NOTE | 2022-02-16 17:25 | P.OP ---
Date of Procedure: 02/16/22 Description of Procedure: Preoperative diagnosis: Nonfunctioning right femoral dialysis catheter Postoperative diagnosis: Same Procedure: [Exchange of femoral dialysis catheter for 20cm] Surgeon: Tracey Hilario D.O. EBL: [Less than 5 mL] IV fluids: [Not measured] Urine output: [Not measured] Drains: [None] Complications: [None] Condition: [Stable] Operative indication and findings: [Patient is a 68-year-old male undergoing dialysis previously via a right femoral vein temporary catheter. It was found to be nonfunctional, initially TPA was attempted but not successful therefore plan was for exchange. Risks and benefits were discussed. The patient understood and was willing to proceed] Procedure in detail: [The right femoral area was prepped and draped in usual sterile fashion. Procedure timeout was performed. The sutures were cut and the guidewire was placed through the 16 cm catheter. It was removed. The previously flushed 20 cm catheter was placed. It aspirated and flushed freely. It was sutured in place and a dressing was placed. The patient tolerated the procedure well]
[2022-02-16 20:04] LABS: Glucose,Whole Blood 173 mg/dL (70-110)
--- NOTE | 2022-02-16 22:17 | P.PN ---
Progress Note - Text Progress Note Date: 02/16/22 Presenting complaint: Short of breath Hospital course: This is a pleasant 76 years old male with past medical history of diabetes mellitus, hypertension, benign prostatic hypertrophy, hyperlipidemia Patient states that she has been having dyspnea for the last 3 months getting progressively worse over the last 2 weeks till yesterday he could not bear it anymore sided decided to go to [facility]. Also has been having cough with some phlegm unknown color no chest pain. Patient is complaining of from diarrhea and vomiting for the last 3 days with no abdominal pain. Yesterday he has one bout of loose bowel movement with no blood and lytes in color and he vomited twice with no blood as well. Patient denies any dysuria or urgency. He has some dizziness but no headache or weakness or numbness. However patient feels generally weak. Denies smoking alcohol or illicit tracts. It is not on home oxygen. He is Dr. Downs, special collections librarian Dr. Cortés and urologist is Dr. Martin Patient was transferred from [facility] for dyspnea. Vitals currently showing stable blood pressure 153/95. Patient is saturating 97% on BiPAP. Prior to that he was saturating 91-93% on 6 L oxygen via nasal cannula and he was tachypneic Labs here show an unremarkable CBC except for anemia with hemoglobin 8.5. High lactic acid came back to normal Urine analysis showing 2+ protein. Troponin is elevated at 0.19 [place] [id number] creatinine is elevated 7.1. 5 months ago creatinine was normal 0.8. Potassium currently normal formed 0.3 as well as sodium 139. Liver enzymes not significantly elevated. Chest x-ray:Opacity projecting the heart and more posteriorly correlate for pneumonia. A component of pulmonary vascular congestion may also be present. Correlate for CHF EKG showing atrial fibrillation's with controlled rate at 88, mild ST depression in V4 and V5 no other significant ST-T changes 02/16/2022: I assumed care of the patient today from [facility] hospitalist. Patient seen this morning. Declining in bed.. Short of breath. Eating fair. On 6 L nasal cannula. Patient was started on hemodialysis on February 14. Yesterday patient went into atrial flutter with a controlled rate. Back and assessment. Active Medications Hydrocodone Bitart/Acetaminophen (Hydrocodone/Apap 5-325mg 1 Each Tab) 1 each PO BID PRN PRN Reason: Pain Allopurinol (Allopurinol 100 Mg Tab) 100 mg PO BID [facility] Last Admin: 02/16/22 08:11 Dose: 100 mg Alprazolam (Alprazolam 0.25 Mg Tab) 0.25 mg PO TID PRN PRN Reason: Anxiety Last Admin: 02/16/22 08:23 Dose: 0.25 mg Amlodipine Besylate (Amlodipine 5 Mg Tab) 5 mg PO DAILY [facility] Last Admin: 02/16/22 08:11 Dose: 5 mg Apixaban (Apixaban 2.5 Mg Tablet) 2.5 mg PO BID [facility]; Protocol Last Admin: 02/16/22 08:11 Dose: 2.5 mg Aspirin (Aspirin 81 Mg) 81 mg PO DAILY [facility] Last Admin: 02/16/22 08:11 Dose: 81 mg Azelastine HCl (Azelastine 137mcg/[place]) 2 spray NASAL BID [facility] Last Admin: 02/16/22 08:12 Dose: 2 spray Famotidine (Famotidine 20 Mg Tab) 20 mg PO HS [facility] Last Admin: 02/15/22 20:41 Dose: 20 mg Ceftriaxone Sodium 1 gm/ (Sodium Chloride) 50 mls @ 100 mls/hr IVPB Q12H [facility]; Protocol Last Admin: 02/16/22 12:54 Dose: 100 mls/hr Ferric Sodium Gluconate 125 mg (/ Sodium Chloride) 110 mls @ 100 mls/hr IVPB DAILY [facility] Stop: 02/18/22 11:01 Last Admin: 02/16/22 13:34 Dose: 100 mls/hr Insulin Aspart (Insulin Aspart (Novolog) 100 Unit/Ml Vial) 0 unit SQ ACHS [facility]; Protocol Last Admin: 02/16/22 20:40 Dose: 1 unit Meclizine HCl (Meclizine 25 Mg Tab) 25 mg PO DAILY PRN PRN Reason: Vertigo Metoprolol Tartrate (Metoprolol Tartrate 50 Mg Tab) 50 mg PO BID [facility] Naloxone HCl (Naloxone 0.4 Mg/Ml 1 Ml Vial) 0.2 mg IV Q2M PRN PRN Reason: Opioid Reversal Potassium Chloride (Potassium Chloride Er 10 Meq Tab.Er.Prt) 10 meq PO DAILY [facility] Last Admin: 02/16/22 08:11 Dose: 10 meq Pravastatin Sodium (Pravastatin Sodium 40 Mg Tab) 40 mg PO HS [facility] Last Admin: 02/15/22 20:41 Dose: 40 mg Sodium Bicarbonate (Sodium Bicarbonate Tab 650 Mg Tab) 650 mg PO BID [facility] Last Admin: 02/16/22 08:11 Dose: 650 mg Tamsulosin HCl (Tamsulosin 0.4 Mg Cap.Er.24h) 0.4 mg PO PC-BRKFST [facility] Last Admin: 02/16/22 08:11 Dose: 0.4 mg Torsemide (Torsemide 20 Mg Tab) 40 mg PO DAILY [facility] On examination: VITAL SIGNS: [98.3, 72, 14, 140/75, 90% on 6 L] GENERAL APPEARANCE: Reclining in bed, awake, tired. HEENT: Normal external appearance of nose and ear. Oral cavity normal EYES: Pupils equal. Conjunctiva normal. NECK: JVD not raised. Mass not palpable. RESPIRATORY: Respiratory effort increased. Lungs decreased breath sounds CARDIOVASCULAR: First and second sounds normal. No edema. ABDOMEN: Soft. Liver and spleen not palpable. No tenderness. No mass palpable. PSYCHIATRY: Alert and oriented x3. Mood and affect normal. INVESTIGATIONS, reviewed in the clinical context: Chest x-ray film personally reviewed by me-[February 16] cardiomegaly White count 5.5 globin 9.1 platelets 2214.1 BUN 78 creatinine 6.93 TSH 1.1 Hepatitis B core total antibody: Nonreactive Previous studies: 2-D echocardiogram [June 2021]: EF 55%, moderate aortic regurgitation, moderate MR, moderate TR. Nuclear stress test June 2021: Negative Assessment and plan: -Acute kidney injury secondary to ATN with component of urinary retention. Ultrasound unremarkable. Started on hemodialysis 02/14/2022. Being followed by nephrology. Hemodialysis today. -Acute hypoxic respiratory failure from CHF: Slow to respond On 6 L nasal cannula. -CAD with a prior history of coronary bypass -Moderate aortic reviewed regurgitation, moderate MR, moderate TR followed by cardiology -Metabolic acidosis due to acute kidney injury Oral bicarbonate. Getting dialysis. -Paroxysmal atrial flutter fibrillation, currently back in sinus rhythm Metoprolol. Eliquis. Follow-up with Dr. Kelly Cortés outpatient -Right kidney complex cystic lesion. Being followed by urology -Acute bladder outflow obstruction secondary to enlarged prostate . Hilario catheter. Flomax -Hypertension with chronic kidney disease -Acute on chronic diastolic CHF from EF 55% Hemodialysis -Hyperphosphatemia secondary to acute kidney injury Continue dialysis Be followed by cardiology and nephrology. Getting IV iron. Continue current medications. Spoke to the patient about incentive spirometry. We'll try to decrease FiO2. Have the patient sit up in a chair.
[2022-02-17] MEDS: allopurinoL 100 MG TAB PO SCH ×3 (03:14→20:44)
[2022-02-17] MEDS: SODIUM BICARBONATE TAB 650 MG TAB PO SCH ×3 (03:15→20:45)
[2022-02-17] MEDS: PRAVASTATIN SODIUM 40 MG TAB PO SCH ×2 (03:15→20:45)
[2022-02-17] MEDS: FAMOTIDINE 20 MG TAB PO SCH ×2 (03:15→20:45)
[2022-02-17] MEDS: APIXABAN 2.5 MG TABLET PO SCH ×3 (03:15→20:45)
[2022-02-17] MEDS: AZELASTINE 137MCG/SPRAY NASAL SCH ×3 (03:15→20:46)
[2022-02-17] MEDS: METOPROLOL TARTRATE 50 MG TAB PO SCH ×3 (03:15→20:45)
[2022-02-17 06:13] LABS: Glucose,Whole Blood 121 mg/dL (70-110)
[2022-02-17] MEDS: INSULIN ASPART (NovoLOG) 100 UNIT/ML VIAL SQ SCH ×4 (06:15→20:45)
[2022-02-17 07:59] LABS: Calcium 7.8 mg/dL (8.4-10.2); Magnesium 1.7 mg/dL (1.6-2.3); Phosphorus 4.5 mg/dL (2.5-4.5)
[2022-02-17] MEDS: TAMSULOSIN 0.4 MG CAP.ER.24H PO SCH (09:05)
[2022-02-17] MEDS: ASPIRIN 81 MG PO SCH (09:06)
[2022-02-17] MEDS: POTASSIUM CHLORIDE ER 10 MEQ TAB.ER.PRT PO SCH (09:06)
[2022-02-17] MEDS: amLODIPine 5 MG TAB PO SCH ×2 (09:06→20:45)
[2022-02-17] MEDS: TORSEMIDE 20 MG TAB PO SCH (09:06)
[2022-02-17] MEDS: SODIUM FERRIC GLUCONAT-SUCROSE 125 MG in SODIUM CHLORIDE 0.9% 100 ML IVPB SCH (09:49)
--- NOTE | 2022-02-17 10:50 | P.PN ---
Subjective Patient is seen in follow-up for acute kidney injury. Started on hemodialysis 02/14/2022. Dialysis catheter malfunctioned and was exchanged. Nonoliguric. On 5 L nasal cannula. No vomiting or diarrhea. Oral intake is fair. Blood pressure stable. Vital signs are stable. General: Awake. No acute distress. HEENT: Head exam is unremarkable. On nasal cannula. LUNGS: Breath sounds decreased. HEART: Rate and Rhythm are regular. ABDOMEN: Soft, no distention. EXTREMITITES: No edema. Objective - Vital Signs Vital signs: Vital Signs Temp 97.7 F 02/17/22 09:00 Pulse 82 02/17/22 09:00 Resp 18 02/17/22 09:00 BP 158/54 02/17/22 09:00 Pulse Ox 96 02/17/22 09:00 FiO2 50 02/14/22 00:12 Intake & Output 02/16/22 02/17/22 02/17/22 18:59 06:59 18:59 Intake Total 118 500 Output Total 2300 Balance 118 -1800 Weight 38.5 kg 59.4 kg Intake: Oral 118 Hemodialysis 500 Output: Urine 800 Hemodialysis 1500 Other: Voiding Method Indwelling Catheter Indwelling Catheter Indwelling Catheter - Labs CBC & Chem 7: 02/16/22 08:50 02/17/22 06:56 Labs: Abnormal Lab Results - Last 24 Hours (Table) 02/16/22 02/16/22 02/16/22 Range/Units 11:53 16:31 19:59 BUN (9-20) mg/dL Creatinine (0.66-1.25) mg/dL Glucose (74-99) mg/dL POC Glucose (mg/dL) 257 H 131 H 173 H (70-110) mg/dL Calcium (8.4-10.2) mg/dL 02/17/22 02/17/22 Range/Units 06:12 06:56 BUN 52 H (9-20) mg/dL Creatinine 4.47 H (0.66-1.25) mg/dL Glucose 107 H (74-99) mg/dL POC Glucose (mg/dL) 121 H (70-110) mg/dL Calcium 7.8 L (8.4-10.2) mg/dL Assessment and Plan Plan: Assessment: 1. Acute kidney injury secondary to ATN with component of urinary retention. No hydronephrosis noted on kidney ultrasound. Creatinine was 0.8 in August 2021. Creatinine was over 7 this admission. Rule out GN. Started on hemodialysis 02/14/2022 via femoral catheter - exchanged 02/16/2022. 2. Metabolic acidosis secondary to acute kidney injury. Metformin held. Better. Expect further improvement with dialysis. On oral bicarb. 3. Anemia. Iron deficiency noted. 4. Right kidney complex cystic lesion. Urology following. 5. Urinary retention. Has Hilario catheter. On Flomax. 6. Hypertension with chronic kidney disease. 7. Acute on chronic diastolic CHF with moderate aortic and mitral regurgitation. Cardiology following. 8. Diabetes mellitus. 9. Hyperphosphatemia secondary to acute kidney injury. Phosphorus 5.5 today. Expect further improvement postdialysis. 10. Volume overload. Improved with diuresis and ultrafiltration. 11. Hypomagnesemia from diuresis. Plan: Completed dialysis early this morning. Hold off on treatment tomorrow and monitor for renal recovery. Maintain IV iron. Maintain torsemide. Follow-up pending serologies - negative so far. Add oral magnesium oxide. Kidney biopsy will also be considered pending above results and recovery of renal function. Will need permacath prior to discharge if dialysis will be continued.
[2022-02-17] MEDS: MAGNESIUM OXIDE 400 MG TAB PO SCH (11:02)
[2022-02-17 11:57] LABS: Glucose,Whole Blood 138 mg/dL (70-110)
--- NOTE | 2022-02-17 12:51 | P.PN ---
Subjective This is a 76 year with a past medical history significant for coronary artery disease with previous CABG, moderate aortic regurgitation, hypertension, hyperlipidemia, diabetes, and chronic kidney disease. Patient follows in the office with Dr. Cortés. We have been asked to see the patient in consultation for CHF and elevated troponin. Patient reports having progressive shortness of breath for the past two months which prompted him to to come to the ER. He required bipap and states his breathing is improved since coming to the hospital. He was found to be in acute renal failure with a creatinine of 7.16. He reports his baseline is around 3. DIAGNOSTICS: * Most recent echocardiogram obtained in June 2021 revealed ejection fraction 55%, moderate aortic regurgitation, moderate mitral regurgitation, mild to moderate tricuspid regurgitation * Patient underwent Lexiscan stress test in June 2021 which was negative for acute ischemia 02/14: Patient started on hemodialysis 02/15: During dialysis today patient went into atrial flutter. He was asymptomatic with the episode will start Eliquis 2.5 mg twice a day and increase his Toprol to 50 mg 3 times a day. 02/17/2022: Patient seen and examined at bedside, no acute distress. Denies any chest pain, shortness of breath or palpitations. His symptoms has improved. No acute events overnight. EKG reviewed from 02/15 which revealed atrial flutter. Telemetry reviewed patient is maintaining sinus rhythm with heart rates in the 80s-90s Blood pressure 158/54, heart rate 82. Nephrology following for dialysis. PHYSICAL EXAM: VITAL SIGNS: Reviewed. GENERAL: Well-developed in no acute distress. HEENT: Head is normocephalic. Pupils are equal, round. Sclerae anicteric. Neck supple. No JVD LUNGS: Respirations even and unlabored. Lungs diminished. HEART: Regular rate and rhythm. S1 and S2 heard. + systolic murmur. ABDOMEN: Soft. Nondistended. Nontender. EXTREMITIES: Normal range of motion. No clubbing or cyanosis. Peripheral pulses intact. No lower extremity edema NEUROLOGIC: Awake and alert. Oriented x 3. ASSESSMENT: Shortness of breath New onset typical atrial flutter, started on Eliquis, currently maintaining sinus rhythm Acute hypoxic respiratory failure Acute renal failure, started hemodialysis 02/14/2022 Fluid overload secondary to above Abnormal troponin, ACS ruled out, likely secondary to acute renal failure Coronary artery disease with previous CABG Valvular heart disease Hypertension Hyperlipidemia Diabetes PLAN: EKG reviewed from 02/15 which revealed atrial flutter Continue anticoagulation with Eliquis Increase amlodipine 5mg BID Continue metoprolol succinate 50mg BID Nephrology managing diuresis and hemodialysis, transitioned to Torsemide 40mg daily On discharge, recommend follow up with Dr. Cortés in 1-2 weeks, possibly will need atrial flutter ablation in the future as an outpatient Further recommendations pending patient course Nurse practitioner note has been reviewed by physician. Signing provider agrees with the documented findings, assessment, and plan of care. Objective - Vital Signs Vital signs: Vital Signs Temp 97.7 F 02/17/22 09:00 Pulse 82 02/17/22 09:00 Resp 18 02/17/22 09:00 BP 158/54 02/17/22 09:00 Pulse Ox 96 02/17/22 09:00 FiO2 50 02/14/22 00:12 Intake & Output 02/16/22 02/17/22 02/17/22 18:59 06:59 18:59 Intake Total 118 500 Output Total 2300 Balance 118 -1800 Weight 38.5 kg 59.4 kg Intake: Oral 118 Hemodialysis 500 Output: Urine 800 Hemodialysis 1500 Other: Voiding Method Indwelling Catheter Indwelling Catheter Indwelling Catheter - Labs CBC & Chem 7: 02/16/22 08:50 02/17/22 06:56 Labs: Abnormal Lab Results - Last 24 Hours (Table) 02/16/22 02/16/22 02/16/22 Range/Units 11:53 16:31 19:59 BUN (9-20) mg/dL Creatinine (0.66-1.25) mg/dL Glucose (74-99) mg/dL POC Glucose (mg/dL) 257 H 131 H 173 H (70-110) mg/dL Calcium (8.4-10.2) mg/dL 02/17/22 02/17/22 Range/Units 06:12 06:56 BUN 52 H (9-20) mg/dL Creatinine 4.47 H (0.66-1.25) mg/dL Glucose 107 H (74-99) mg/dL POC Glucose (mg/dL) 121 H (70-110) mg/dL Calcium 7.8 L (8.4-10.2) mg/dL
--- NOTE | 2022-02-17 13:22 | P.PN ---
Subjective Progress Note Date: 02/17/22 Principal diagnosis: Acute kidney injury, possible dialysis catheter placement The patient was seen and examined today as a follow-up. Yesterday he went to have hemodialysis however dialysis catheter was malfunctioning. Yesterday evening he underwent an exchange of his femoral dialysis catheter. He states that he underwent hemodialysis treatment early this morning without any complications. Objective - Vital Signs Vital signs: Vital Signs Temp 97.7 F 02/17/22 09:00 Pulse 72 02/17/22 11:05 Resp 17 02/17/22 11:05 BP 132/69 02/17/22 11:05 Pulse Ox 97 02/17/22 11:05 FiO2 50 02/14/22 00:12 Intake & Output 02/16/22 02/17/22 02/17/22 18:59 06:59 18:59 Intake Total 118 500 Output Total 2300 Balance 118 -1800 Weight 38.5 kg 59.4 kg Intake: Oral 118 Hemodialysis 500 Output: Urine 800 Hemodialysis 1500 Other: Voiding Method Indwelling Catheter Indwelling Catheter Indwelling Catheter - Exam General appearance: The patient is alert, oriented, appears in no acute distress. HET: Head is normocephalic and atraumatic. Extremities: Normal skin color and turgor. Right femoral dialysis catheter in place. Neurological: Alert and oriented. - Labs CBC & Chem 7: 02/16/22 08:50 02/17/22 06:56 Labs: Abnormal Lab Results - Last 24 Hours (Table) 02/16/22 02/16/22 02/17/22 Range/Units 16:31 19:59 06:12 BUN (9-20) mg/dL Creatinine (0.66-1.25) mg/dL Glucose (74-99) mg/dL POC Glucose (mg/dL) 131 H 173 H 121 H (70-110) mg/dL Calcium (8.4-10.2) mg/dL 02/17/22 02/17/22 Range/Units 06:56 11:50 BUN 52 H (9-20) mg/dL Creatinine 4.47 H (0.66-1.25) mg/dL Glucose 107 H (74-99) mg/dL POC Glucose (mg/dL) 138 H (70-110) mg/dL Calcium 7.8 L (8.4-10.2) mg/dL Assessment and Plan Assessment: 1. Acute kidney injury requiring hemodialysis 2. Shortness of breath 3. Acute hypoxic respiratory failure 4. Possible pneumonia 5. History coronary artery disease status post CABG 6. BPH with urinary retention Plan: Right femoral Exchange catheter working without any difficulty. Please contact us if nephrology recommends permanent hemodialysis catheter placement. Continue medical management per primary medicine team and nephrology. The impression and plan of care has been dictated as directed. Dr. Gray I performed a history and examination of this patient, discussed the same with the dictator. I agree with the dictator's note ,documented as a scribe. Any additional findings or plans will be noted.
--- NOTE | 2022-02-17 14:53 | P.PN ---
Progress Note - Text Progress Note Date: 02/17/22 Presenting complaint: Short of breath Hospital course: This is a pleasant 76 years old male with past medical history of diabetes mellitus, hypertension, benign prostatic hypertrophy, hyperlipidemia Patient states that she has been having dyspnea for the last 3 months getting progressively worse over the last 2 weeks till yesterday he could not bear it anymore sided decided to go to [facility]. Also has been having cough with some phlegm unknown color no chest pain. Patient is complaining of from diarrhea and vomiting for the last 3 days with no abdominal pain. Yesterday he has one bout of loose bowel movement with no blood and lytes in color and he vomited twice with no blood as well. Patient denies any dysuria or urgency. He has some dizziness but no headache or weakness or numbness. However patient feels generally weak. Denies smoking alcohol or illicit tracts. It is not on home oxygen. 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 Martin Patient was transferred from [facility] for dyspnea. Vitals currently showing stable blood pressure 153/95. Patient is saturating 97% on BiPAP. Prior to that he was saturating 91-93% on 6 L oxygen via nasal cannula and he was tachypneic Labs here show an unremarkable CBC except for anemia with hemoglobin 8.5. High lactic acid came back to normal Urine analysis showing 2+ protein. Troponin is elevated at 0.19 [place] 33232 creatinine is elevated 7.1. 5 months ago creatinine was normal 0.8. Potassium currently normal formed 0.3 as well as sodium 139. Liver enzymes not significantly elevated. Chest x-ray:Opacity projecting the heart and more posteriorly correlate for pneumonia. A component of pulmonary vascular congestion may also be present. Correlate for CHF EKG showing atrial fibrillation's with controlled rate at 88, mild ST depression in V4 and V5 no other significant ST-T changes 02/16/2022: I assumed care of the patient today from [facility] hospitalist. Patient seen this morning. reclining in bed.. Short of breath. Eating fair. On 6 L nasal cannula. Patient was started on hemodialysis on February 14. Yesterday patient went into atrial flutter with a controlled rate. Back and assessment. 02/17/2022: Awake short of breath. Remains on 5 L nasal cannula. Oral intake fair. A bit tired. We'll have the patient sit up in a chair. Yesterday patient had hemodialysis catheter was replaced as it was malfunctioning. Active Medications Hydrocodone Bitart/Acetaminophen (Hydrocodone/Apap 5-325mg 1 Each Tab) 1 each PO BID PRN PRN Reason: Pain Allopurinol (Allopurinol 100 Mg Tab) 100 mg PO BID [facility] Last Admin: 02/17/22 09:06 Dose: 100 mg Alprazolam (Alprazolam 0.25 Mg Tab) 0.25 mg PO TID PRN PRN Reason: Anxiety Last Admin: 02/16/22 08:23 Dose: 0.25 mg Amlodipine Besylate (Amlodipine 5 Mg Tab) 5 mg PO BID [facility] Apixaban (Apixaban 2.5 Mg Tablet) 2.5 mg PO BID [facility]; Protocol Last Admin: 02/17/22 09:06 Dose: 2.5 mg Aspirin (Aspirin 81 Mg) 81 mg PO DAILY [facility] Last Admin: 02/17/22 09:06 Dose: 81 mg Azelastine HCl (Azelastine 137mcg/[place]) 2 spray NASAL BID [facility] Last Admin: 02/17/22 09:07 Dose: 2 spray Famotidine (Famotidine 20 Mg Tab) 20 mg PO HS [facility] Last Admin: 02/17/22 03:15 Dose: Not Given Ceftriaxone Sodium 1 gm/ (Sodium Chloride) 50 mls @ 100 mls/hr IVPB Q12H [facility]; Protocol Last Admin: 02/17/22 11:02 Dose: 100 mls/hr Ferric Sodium Gluconate 125 mg (/ Sodium Chloride) 110 mls @ 100 mls/hr IVPB DAILY [facility] Stop: 02/18/22 11:01 Last Admin: 02/17/22 09:49 Dose: 100 mls/hr Insulin Aspart (Insulin Aspart (Novolog) 100 Unit/Ml Vial) 0 unit SQ ACHS [facility]; Protocol Last Admin: 02/17/22 13:44 Dose: Not Given Magnesium Oxide (Magnesium Oxide 400 Mg Tab) 400 mg PO DAILY [facility] Last Admin: 02/17/22 11:02 Dose: 400 mg Meclizine HCl (Meclizine 25 Mg Tab) 25 mg PO DAILY PRN PRN Reason: Vertigo Metoprolol Tartrate (Metoprolol Tartrate 50 Mg Tab) 50 mg PO BID [facility] Last Admin: 02/17/22 09:06 Dose: 50 mg Naloxone HCl (Naloxone 0.4 Mg/Ml 1 Ml Vial) 0.2 mg IV Q2M PRN PRN Reason: Opioid Reversal Pravastatin Sodium (Pravastatin Sodium 40 Mg Tab) 40 mg PO HS [facility] Last Admin: 02/17/22 03:15 Dose: Not Given Sodium Bicarbonate (Sodium Bicarbonate Tab 650 Mg Tab) 650 mg PO BID [facility] Last Admin: 02/17/22 09:06 Dose: 650 mg Tamsulosin HCl (Tamsulosin 0.4 Mg Cap.Er.24h) 0.4 mg PO PC-BRKFST [facility] Last Admin: 02/17/22 09:05 Dose: 0.4 mg Torsemide (Torsemide 20 Mg Tab) 40 mg PO DAILY [facility] Last Admin: 02/17/22 09:06 Dose: 40 mg On examination: VITAL SIGNS: 97.7, 72, 17, 1 32 x 69, 97% on 5 L GENERAL APPEARANCE: Reclining in bed, HEENT: Normal external appearance of nose and ear. Oral cavity normal EYES: Pupils equal. Conjunctiva normal. NECK: JVD not raised. Mass not palpable. RESPIRATORY: Respiratory effort increased. Lungs decreased breath sounds CARDIOVASCULAR: First and second sounds normal. No edema. ABDOMEN: Soft. Liver and spleen not palpable. No tenderness. No mass palpable. PSYCHIATRY: Alert and oriented x3. Mood and affect normal. INVESTIGATIONS, reviewed in the clinical context: 02/17/2022: Potassium 4 BUN 52 creatinine 4.47 Chest x-ray film personally reviewed by dc-[February 16] cardiomegaly White count 5.5 globin 9.1 platelets 2214.1 BUN 78 creatinine 6.93 TSH 1.1 Hepatitis B core total antibody: Nonreactive Previous studies: 2-D echocardiogram [June 2021]: EF 55%, moderate aortic regurgitation, moderate MR, moderate TR. Nuclear stress test June 2021: Negative Assessment and plan: -Acute kidney injury secondary to ATN with component of urinary retention. Ultrasound unremarkable. Started on hemodialysis 02/14/2022. Being followed by nephrology. Hemodialysis today-hold treatment tomorrow. -Acute hypoxic respiratory failure from CHF: Slow to respond On 5 L nasal cannula. -Possible pneumonia, suspect gram-negative organism: Improved IV ceftriaxone,'s completed 7 days.. Previously pro-calcitonin was elevated. Chest x-ray showed some infiltrate. -CAD with a prior history of coronary bypass -Moderate aortic regurgitation, moderate MR, moderate TR followed by cardiology -Metabolic acidosis due to acute kidney injury Oral bicarbonate. Getting dialysis. -I did deficiency anemia IV ferrous gluconate. -Paroxysmal atrial flutter fibrillation, currently back in sinus rhythm Metoprolol. Eliquis. Follow-up with Dr. Kelly Cortés outpatient -Right kidney complex cystic lesion. Being followed by urology -Acute bladder outflow obstruction secondary to enlarged prostate . Hilario catheter. Flomax -Hypertension with chronic kidney disease -Acute on chronic diastolic CHF from EF 55% Hemodialysis -Hyperphosphatemia secondary to acute kidney injury Continue dialysis FiO2 5 L. Hemodialysis today. Continue other medications. DC ceftriaxone. Started on Demadex.
[2022-02-17 17:06] LABS: Glucose,Whole Blood 178 mg/dL (70-110)
[2022-02-17 20:04] LABS: Glucose,Whole Blood 152 mg/dL (70-110)
[2022-02-18 05:58] LABS: Glucose,Whole Blood 119 mg/dL (70-110)
[2022-02-18] MEDS: INSULIN ASPART (NovoLOG) 100 UNIT/ML VIAL SQ SCH ×4 (06:05→20:39)
[2022-02-18] MEDS: allopurinoL 100 MG TAB PO SCH ×2 (08:10→20:38)
[2022-02-18] MEDS: METOPROLOL TARTRATE 50 MG TAB PO SCH ×2 (08:10→20:39)
[2022-02-18] MEDS: amLODIPine 5 MG TAB PO SCH ×2 (08:10→20:38)
[2022-02-18] MEDS: ASPIRIN 81 MG PO SCH (08:10)
[2022-02-18] MEDS: AZELASTINE 137MCG/SPRAY NASAL SCH ×2 (08:10→20:39)
[2022-02-18] MEDS: TAMSULOSIN 0.4 MG CAP.ER.24H PO SCH (08:10)
[2022-02-18] MEDS: TORSEMIDE 20 MG TAB PO SCH (08:10)
[2022-02-18] MEDS: MAGNESIUM OXIDE 400 MG TAB PO SCH (08:10)
[2022-02-18] MEDS: APIXABAN 2.5 MG TABLET PO SCH (08:10)
[2022-02-18] MEDS: SODIUM BICARBONATE TAB 650 MG TAB PO SCH ×2 (08:10→20:38)
--- NOTE | 2022-02-18 08:32 | P.PN ---
Subjective Progress Note Date: 02/18/22 Principal diagnosis: Acute kidney injury, possible dialysis catheter placement Patient was seen and examined is a follow-up for end-stage renal disease requiring renal replacement therapy. Patient has a temporary femoral vein HD catheter in place. Morning labs are currently pending. Awaiting recommendation from nephrology regarding need for permanent catheter placement. Objective - Vital Signs Vital signs: Vital Signs Temp 97.8 F 02/18/22 04:20 Pulse 71 02/18/22 04:20 Resp 18 02/18/22 04:20 BP 144/75 02/18/22 04:20 Pulse Ox 96 02/18/22 07:23 FiO2 50 02/14/22 00:12 Intake & Output 02/17/22 02/18/22 02/18/22 18:59 06:59 18:59 Intake Total 240 118 Output Total 425 Balance 240 -307 Weight 60.1 kg Intake: Oral 240 118 Output: Urine 425 Other: Voiding Method Indwelling Catheter Indwelling Catheter - Exam General appearance: The patient is alert, oriented, appears in no acute distress. HET: Head is normocephalic and atraumatic. Extremities: Normal skin color and turgor. Right femoral dialysis catheter in place. Neurological: Alert and oriented. - Labs CBC & Chem 7: 02/16/22 08:50 02/18/22 07:51 Labs: Abnormal Lab Results - Last 24 Hours (Table) 02/17/22 02/17/22 02/17/22 Range/Units 11:50 16:59 20:03 POC Glucose (mg/dL) 138 H 178 H 152 H (70-110) mg/dL 02/18/22 Range/Units 05:54 POC Glucose (mg/dL) 119 H (70-110) mg/dL Assessment and Plan Assessment: 1. Acute kidney injury requiring hemodialysis 2. Shortness of breath 3. Acute hypoxic respiratory failure 4. Possible pneumonia 5. History coronary artery disease status post CABG 6. BPH with urinary retention Plan: Nephrology is recommending a permacath placement for continued hemodialysis treatments. Discontinue Eliquis for procedure. Plan for her tunneled dialysis catheter placement Wednesday. Further management of dialysis per nephrology. The impression and plan of care has been dictated as directed. Dr. Hilario I performed a history and examination of this patient, discussed the same with the dictator. I agree with the dictator's note ,documented as a scribe. Any additional findings or plans will be noted.
[2022-02-18 08:34] LABS: Calcium 8.2 mg/dL (8.4-10.2); Magnesium 1.9 mg/dL (1.6-2.3); Potassium 4.1 mmol/L (3.5-5.1)
[2022-02-18] MEDS: SODIUM FERRIC GLUCONAT-SUCROSE 125 MG in SODIUM CHLORIDE 0.9% 100 ML IVPB SCH (08:55)
--- NOTE | 2022-02-18 10:58 | P.PN ---
Subjective Patient is seen in follow-up for acute kidney injury. Started on hemodialysis 02/14/2022. Nonoliguric. On 5 L nasal cannula. No vomiting or diarrhea. Oral intake is fair. Blood pressure stable. Gets short of breath with exertion. Vital signs are stable. General: Awake. No acute distress. HEENT: Head exam is unremarkable. On nasal cannula. LUNGS: Breath sounds decreased. HEART: Rate and Rhythm are regular. ABDOMEN: Soft, no distention. EXTREMITITES: No edema. Objective - Vital Signs Vital signs: Vital Signs Temp 98.1 F 02/18/22 08:00 Pulse 76 02/18/22 08:00 Resp 18 02/18/22 08:00 BP 144/65 02/18/22 08:00 Pulse Ox 97 02/18/22 08:00 FiO2 50 02/14/22 00:12 Intake & Output 02/17/22 02/18/22 02/18/22 18:59 06:59 18:59 Intake Total 240 118 240 Output Total 425 Balance 240 -307 240 Weight 60.1 kg Intake: Oral 240 118 240 Output: Urine 425 Other: Voiding Method Indwelling Catheter Indwelling Catheter Indwelling Catheter - Labs CBC & Chem 7: 02/16/22 08:50 02/18/22 07:51 Labs: Abnormal Lab Results - Last 24 Hours (Table) 02/17/22 02/17/22 02/17/22 Range/Units 11:50 16:59 20:03 Sodium (137-145) mmol/L Carbon Dioxide (22-30) mmol/L BUN (9-20) mg/dL Creatinine (0.66-1.25) mg/dL Glucose (74-99) mg/dL POC Glucose (mg/dL) 138 H 178 H 152 H (70-110) mg/dL Calcium (8.4-10.2) mg/dL 02/18/22 02/18/22 Range/Units 05:54 07:51 Sodium 136 L (137-145) mmol/L Carbon Dioxide 20 L (22-30) mmol/L BUN 70 H (9-20) mg/dL Creatinine 5.77 H (0.66-1.25) mg/dL Glucose 127 H (74-99) mg/dL POC Glucose (mg/dL) 119 H (70-110) mg/dL Calcium 8.2 L (8.4-10.2) mg/dL Assessment and Plan Plan: Assessment: 1. Acute kidney injury secondary to ATN with component of urinary retention. No hydronephrosis noted on kidney ultrasound. Creatinine was 0.8 in August 2021. Creatinine was over 7 this admission. Rule out GN. Started on hemodialysis 02/14/2022 via femoral catheter - exchanged 02/16/2022. Creatinine 5.77 today. Nonoliguric. 2. Metabolic acidosis secondary to acute kidney injury. Metformin held. Better. Expect further improvement with dialysis. On oral bicarb. 3. Anemia. Iron deficiency noted. 4. Right kidney complex cystic lesion. Urology following. 5. Urinary retention. Has Hilario catheter. On Flomax. 6. Hypertension with chronic kidney disease. 7. Acute on chronic diastolic CHF with moderate aortic and mitral regurgitation. Cardiology following. 8. Diabetes mellitus. 9. Hyperphosphatemia secondary to acute kidney injury. Phosphorus 4.5 dated 02/17/2022. 10. Volume overload. Improved with diuresis and ultrafiltration. 11. Hypomagnesemia from diuresis. On oral magnesium oxide. Better. Plan: Hemodialysis today. Next treatment on Wednesday. Maintain IV iron. Maintain torsemide. Serologies negative. Will consider kidney biopsy outpatient once more stable medically. Permacath placement scheduled for Wednesday. Discussed with vascular surgery. Monitor for renal recovery outpatient. Outpatient dialysis to be set up by top case assembler.
--- NOTE | 2022-02-18 11:53 | P.PN ---
Subjective This is a 76 year with a past medical history significant for coronary artery disease with previous CABG, moderate aortic regurgitation, hypertension, hyperlipidemia, diabetes, and chronic kidney disease. Patient follows in the office with Dr. Cortés. We have been asked to see the patient in consultation for CHF and elevated troponin. Patient reports having progressive shortness of breath for the past two months which prompted him to to come to the ER. He required bipap and states his breathing is improved since coming to the hospital. He was found to be in acute renal failure with a creatinine of 7.16. He reports his baseline is around 3. DIAGNOSTICS: * Most recent echocardiogram obtained in June 2021 revealed ejection fraction 55%, moderate aortic regurgitation, moderate mitral regurgitation, mild to moderate tricuspid regurgitation * Patient underwent Lexiscan stress test in June 2021 which was negative for acute ischemia 02/14: Patient started on hemodialysis 02/15: During dialysis today patient went into atrial flutter. He was asymptomatic with the episode will start Eliquis 2.5 mg twice a day and increase his Toprol to 50 mg 3 times a day. 02/18/2022: Patient seen and examined at bedside, no acute distress. Denies any chest pain, shortness of breath or palpitations. His symptoms has improved. No acute events overnight. EKG reviewed from 02/15 which revealed atrial flutter. Telemetry reviewed patient is maintaining sinus rhythm with heart rates in the 70s-80s BP has improved. Blood pressure 113/58, heart rate 82. Nephrology following for dialysis. PHYSICAL EXAM: VITAL SIGNS: Reviewed. GENERAL: Well-developed in no acute distress. HEENT: Head is normocephalic. Pupils are equal, round. Sclerae anicteric. Neck supple. No JVD LUNGS: Respirations even and unlabored. Lungs diminished. HEART: Regular rate and rhythm. S1 and S2 heard. + systolic murmur. ABDOMEN: Soft. Nondistended. Nontender. EXTREMITIES: Normal range of motion. No clubbing or cyanosis. Peripheral pulses intact. No lower extremity edema NEUROLOGIC: Awake and alert. Oriented x 3. ASSESSMENT: Shortness of breath New onset typical atrial flutter, started on Eliquis, currently maintaining sinus rhythm Acute hypoxic respiratory failure Acute renal failure, started hemodialysis 02/14/2022 Fluid overload secondary to above Abnormal troponin, ACS ruled out, likely secondary to acute renal failure Coronary artery disease with previous CABG Valvular heart disease Hypertension Hyperlipidemia Diabetes PLAN: EKG reviewed from 02/15 which revealed atrial flutter Continue anticoagulation with Eliquis Continue amlodipine 5mg BID Continue metoprolol succinate 50mg BID Nephrology managing diuresis and hemodialysis, transitioned to Torsemide 40mg daily On discharge, recommend follow up with Dr. Cortés in 1-2 weeks, possibly will need atrial flutter ablation in the future as an outpatient We will follow the patient as needed. Please reconsult if needed. Nurse practitioner note has been reviewed by physician. Signing provider agrees with the documented findings, assessment, and plan of care. Objective - Vital Signs Vital signs: Vital Signs Temp 98.1 F 02/18/22 08:00 Pulse 58 L 02/18/22 11:25 Resp 17 02/18/22 11:25 BP 113/58 02/18/22 11:25 Pulse Ox 92 L 02/18/22 11:25 FiO2 50 02/14/22 00:12 Intake & Output 02/17/22 02/18/22 02/18/22 18:59 06:59 18:59 Intake Total 240 118 240 Output Total 425 Balance 240 -307 240 Weight 60.1 kg Intake: Oral 240 118 240 Output: Urine 425 Other: Voiding Method Indwelling Catheter Indwelling Catheter Indwelling Catheter - Labs CBC & Chem 7: 02/16/22 08:50 02/18/22 07:51 Labs: Abnormal Lab Results - Last 24 Hours (Table) 02/17/22 02/17/22 02/17/22 Range/Units 11:50 16:59 20:03 Sodium (137-145) mmol/L Carbon Dioxide (22-30) mmol/L BUN (9-20) mg/dL Creatinine (0.66-1.25) mg/dL Glucose (74-99) mg/dL POC Glucose (mg/dL) 138 H 178 H 152 H (70-110) mg/dL Calcium (8.4-10.2) mg/dL 02/18/22 02/18/22 Range/Units 05:54 07:51 Sodium 136 L (137-145) mmol/L Carbon Dioxide 20 L (22-30) mmol/L BUN 70 H (9-20) mg/dL Creatinine 5.77 H (0.66-1.25) mg/dL Glucose 127 H (74-99) mg/dL POC Glucose (mg/dL) 119 H (70-110) mg/dL Calcium 8.2 L (8.4-10.2) mg/dL
[2022-02-18 12:03] LABS: Glucose,Whole Blood 206 mg/dL (70-110)
--- NOTE | 2022-02-18 15:50 | P.PN ---
Progress Note - Text Progress Note Date: 02/18/22 Presenting complaint: Short of breath Hospital course: This is a pleasant 76 years old male with past medical history of diabetes mellitus, hypertension, benign prostatic hypertrophy, hyperlipidemia Patient states that she has been having dyspnea for the last 3 months getting progressively worse over the last 2 weeks till yesterday he could not bear it anymore sided decided to go to [facility]. Also has been having cough with some phlegm unknown color no chest pain. Patient is complaining of from diarrhea and vomiting for the last 3 days with no abdominal pain. Yesterday he has one bout of loose bowel movement with no blood and lytes in color and he vomited twice with no blood as well. Patient denies any dysuria or urgency. He has some dizziness but no headache or weakness or numbness. However patient feels generally weak. Denies smoking alcohol or illicit tracts. It is not on home oxygen. He is Dr. Downs, children's service worker Dr. Cortés and urologist is Dr. Martin Patient was transferred from [facility] for dyspnea. Vitals currently showing stable blood pressure 153/95. Patient is saturating 97% on BiPAP. Prior to that he was saturating 91-93% on 6 L oxygen via nasal cannula and he was tachypneic Labs here show an unremarkable CBC except for anemia with hemoglobin 8.5. High lactic acid came back to normal Urine analysis showing 2+ protein. Troponin is elevated at 0.19 [place] 17950 creatinine is elevated 7.1. 5 months ago creatinine was normal 0.8. Potassium currently normal formed 0.3 as well as sodium 139. Liver enzymes not significantly elevated. Chest x-ray:Opacity projecting the heart and more posteriorly correlate for pneumonia. A component of pulmonary vascular congestion may also be present. Correlate for CHF EKG showing atrial fibrillation's with controlled rate at 88, mild ST depression in V4 and V5 no other significant ST-T changes 02/16/2022: I assumed care of the patient today from [facility] hospitalist. Patient seen this morning. reclining in bed.. Short of breath. Eating fair. On 6 L nasal cannula. Patient was started on hemodialysis on February 14. Yesterday patient went into atrial flutter with a controlled rate. Back and assessment. 02/17/2022: Awake short of breath. Remains on 5 L nasal cannula. Oral intake fair. A bit tired. We'll have the patient sit up in a chair. Yesterday patient had hemodialysis catheter was replaced as it was malfunctioning. 02/18/2022: Hemodialysis today. FiO2 dropped to 3 L. 92%. Oral intake fair. PermCath placement scheduled for Wednesday. Atrial flutter rate controlled Active Medications Hydrocodone Bitart/Acetaminophen (Hydrocodone/Apap 5-325mg 1 Each Tab) 1 each PO BID PRN PRN Reason: Pain Allopurinol (Allopurinol 100 Mg Tab) 100 mg PO BID [facility] Last Admin: 02/18/22 08:10 Dose: 100 mg Alprazolam (Alprazolam 0.25 Mg Tab) 0.25 mg PO TID PRN PRN Reason: Anxiety Last Admin: 02/16/22 08:23 Dose: 0.25 mg Amlodipine Besylate (Amlodipine 5 Mg Tab) 5 mg PO BID [facility] Last Admin: 02/18/22 08:10 Dose: 5 mg Aspirin (Aspirin 81 Mg) 81 mg PO DAILY [facility] Last Admin: 02/18/22 08:10 Dose: 81 mg Azelastine HCl (Azelastine 137mcg/[place]) 2 spray NASAL BID [facility] Last Admin: 02/18/22 08:10 Dose: 2 spray Famotidine (Famotidine 20 Mg Tab) 20 mg PO [facility] Last Admin: 02/17/22 20:45 Dose: 20 mg Insulin Aspart (Insulin Aspart (Novolog) 100 Unit/Ml Vial) 0 unit SQ ACHS [facility]; Protocol Last Admin: 02/18/22 12:14 Dose: 2 unit Magnesium Oxide (Magnesium Oxide 400 Mg Tab) 400 mg PO DAILY [facility] Last Admin: 02/18/22 08:10 Dose: 400 mg Meclizine HCl (Meclizine 25 Mg Tab) 25 mg PO DAILY PRN PRN Reason: Vertigo Metoprolol Tartrate (Metoprolol Tartrate 50 Mg Tab) 50 mg PO BID [facility] Last Admin: 02/18/22 08:10 Dose: 50 mg Naloxone HCl (Naloxone 0.4 Mg/Ml 1 Ml Vial) 0.2 mg IV Q2M PRN PRN Reason: Opioid Reversal Pravastatin Sodium (Pravastatin Sodium 40 Mg Tab) 40 mg PO HS [facility] Last Admin: 02/17/22 20:45 Dose: 40 mg Sodium Bicarbonate (Sodium Bicarbonate Tab 650 Mg Tab) 650 mg PO BID [facility] Last Admin: 02/18/22 08:10 Dose: 650 mg Tamsulosin HCl (Tamsulosin 0.4 Mg Cap.Er.24h) 0.4 mg PO PC-BRKFST [facility] Last Admin: 02/18/22 08:10 Dose: 0.4 mg Torsemide (Torsemide 20 Mg Tab) 40 mg PO DAILY [facility] Last Admin: 02/18/22 08:10 Dose: 40 mg On examination: VITAL SIGNS: 97.7, 16, 58, 106/68, 92% on 3 L GENERAL APPEARANCE: Reclining in bed, comfortable HEENT: Normal external appearance of nose and ear. Oral cavity normal EYES: Pupils equal. Conjunctiva normal. NECK: JVD not raised. Mass not palpable. RESPIRATORY: Respiratory effort increased. Lungs decreased breath sounds CARDIOVASCULAR: Heart sounds irregular. No edema. ABDOMEN: Soft. Liver and spleen not palpable. No tenderness. No mass palpable. PSYCHIATRY: Alert and oriented x3. Mood and affect normal. INVESTIGATIONS, reviewed in the clinical context: 02/18/2022: Potassium 4.1 BUN 70 creatinine 5.77 02/17/2022: Potassium 4 BUN 52 creatinine 4.47 Chest x-ray film personally reviewed by me-[February 16] cardiomegaly White count 5.5 globin 9.1 platelets 2214.1 BUN 78 creatinine 6.93 TSH 1.1 Hepatitis B core total antibody: Nonreactive Previous studies: 2-D echocardiogram [June 2021]: EF 55%, moderate aortic regurgitation, moderate MR, moderate TR. Nuclear stress test June 2021: Negative Assessment and plan: -Acute kidney injury secondary to ATN with component of urinary retention. Ultrasound unremarkable. Started on hemodialysis 02/14/2022. Being followed by nephrology. Hemodialysis today. For outpatient renal biopsy -Acute hypoxic respiratory failure from CHF: On 3 L nasal cannula. -Possible pneumonia, suspect gram-negative organism: Improved IV ceftriaxone,'s completed 7 days.. Previously pro-calcitonin was elevated. Chest x-ray showed some infiltrate. -CAD with a prior history of coronary bypass -Moderate aortic regurgitation, moderate MR, moderate TR followed by cardiology -Metabolic acidosis due to acute kidney injury Oral bicarbonate. Getting dialysis. -Iron deficiency anemia IV ferrous gluconate. -Paroxysmal atrial flutter fibrillation, currently sinus rhythm Metoprolol. Eliquis. Follow-up with Dr. Kelly Cortés outpatient -Right kidney complex cystic lesion. Being followed by urology -Acute bladder outflow obstruction secondary to enlarged prostate . Hilario catheter. Flomax -Hypertension with chronic kidney disease -Acute on chronic diastolic CHF from EF 55% Hemodialysis -Hyperphosphatemia secondary to acute kidney injury Continue dialysis FiO2 3 L. Hemodialysis today. Discussed with patient. For permanent catheter placement on Wednesday.
[2022-02-18 17:00] LABS: Glucose,Whole Blood 102 mg/dL (70-110)
[2022-02-18 20:02] LABS: Glucose,Whole Blood 160 mg/dL (70-110)
[2022-02-18] MEDS: FAMOTIDINE 20 MG TAB PO SCH (20:38)
[2022-02-18] MEDS: PRAVASTATIN SODIUM 40 MG TAB PO SCH (20:38)
[2022-02-19 06:03] LABS: Glucose,Whole Blood 114 mg/dL (70-110)
[2022-02-19] MEDS: INSULIN ASPART (NovoLOG) 100 UNIT/ML VIAL SQ SCH ×4 (06:14→20:47)
[2022-02-19] MEDS: TAMSULOSIN 0.4 MG CAP.ER.24H PO SCH (08:29)
[2022-02-19] MEDS: amLODIPine 5 MG TAB PO SCH ×2 (08:29→20:47)
[2022-02-19] MEDS: SODIUM BICARBONATE TAB 650 MG TAB PO SCH ×2 (08:29→20:47)
[2022-02-19] MEDS: AZELASTINE 137MCG/SPRAY NASAL SCH ×2 (08:30→20:48)
[2022-02-19] MEDS: MAGNESIUM OXIDE 400 MG TAB PO SCH (08:30)
[2022-02-19] MEDS: allopurinoL 100 MG TAB PO SCH ×2 (08:30→20:47)
[2022-02-19] MEDS: METOPROLOL TARTRATE 50 MG TAB PO SCH ×2 (08:30→20:48)
[2022-02-19] MEDS: TORSEMIDE 20 MG TAB PO SCH (08:30)
[2022-02-19] MEDS: ASPIRIN 81 MG PO SCH (08:30)
--- NOTE | 2022-02-19 10:39 | P.PN ---
Subjective Patient is seen in follow-up for acute kidney injury. Started on hemodialysis 02/14/2022. Nonoliguric. On 3 L nasal cannula. No vomiting or diarrhea. Oral intake is fair. Blood pressure stable. Denies chest pain or shortness of breath. Vital signs are stable. General: Awake. No acute distress. HEENT: Head exam is unremarkable. On nasal cannula. LUNGS: Breath sounds decreased. HEART: Rate and Rhythm are regular. ABDOMEN: Soft, no distention. EXTREMITITES: No edema. Objective - Vital Signs Vital signs: Vital Signs Temp 98.2 F 02/19/22 08:30 Pulse 75 02/19/22 08:30 Resp 18 02/19/22 08:30 BP 127/63 02/19/22 08:30 Pulse Ox 93 L 02/19/22 08:30 FiO2 50 02/14/22 00:12 Intake & Output 02/18/22 02/19/22 02/19/22 18:59 06:59 18:59 Intake Total 540 180 Output Total 1300 300 Balance -760 -300 180 Weight 60.1 kg 59.8 kg Intake: Oral 240 180 Hemodialysis 300 Output: Urine 300 Hemodialysis 1300 Other: Voiding Method Indwelling Catheter Indwelling Catheter Indwelling Catheter - Labs CBC & Chem 7: 02/16/22 08:50 02/18/22 07:51 Labs: Abnormal Lab Results - Last 24 Hours (Table) 02/18/22 02/18/22 02/18/22 Range/Units 12:02 15:00 19:48 POC Glucose (mg/dL) 206 H 160 H (70-110) mg/dL Coronavirus (PCR) Detected A (Not Detectd) 02/19/22 Range/Units 06:01 POC Glucose (mg/dL) 114 H (70-110) mg/dL Coronavirus (PCR) (Not Detectd) Assessment and Plan Plan: Assessment: 1. Acute kidney injury secondary to ATN with component of urinary retention. No hydronephrosis noted on kidney ultrasound. Creatinine was 0.8 in August 2021. Creatinine was over 7 this admission. Rule out GN. Started on hemodialysis 02/14/2022 via femoral catheter - exchanged 02/16/2022. Nonoliguric. 2. Metabolic acidosis secondary to acute kidney injury. Metformin held. Better. Expect further improvement with dialysis. On oral bicarb. 3. Anemia. Iron deficiency noted. Status post IV iron and completed 02/18/2022. 4. Right kidney complex cystic lesion. Urology following. 5. Urinary retention. Has Hilario catheter. On Flomax. 6. Hypertension with chronic kidney disease. Stable. 7. Acute on chronic diastolic CHF with moderate aortic and mitral regurgitation. Cardiology following. 8. Diabetes mellitus. 9. Hyperphosphatemia secondary to acute kidney injury. Phosphorus 4.5 dated 02/17/2022. 10. Volume overload. Improved with diuresis and ultrafiltration. 11. Hypomagnesemia from diuresis. On oral magnesium oxide. Better. Plan: Hemodialysis tomorrow. Maintain torsemide. Serologies negative. Will consider kidney biopsy outpatient once more stable medically. Permacath placement scheduled for Wednesday. Discussed with vascular surgery. Monitor for renal recovery outpatient. Outpatient dialysis to be set up by dependency case manager. Add Chris.
[2022-02-19] MEDS: DARBEPOETIN ALFA 40 MCG/0.4 ML SYRINGE SQ SCH (11:25)
[2022-02-19 12:17] LABS: Glucose,Whole Blood 136 mg/dL (70-110)
[2022-02-19 12:34] LABS: Calcium 8.2 mg/dL (8.4-10.2); Potassium 4.7 mmol/L (3.5-5.1)
--- NOTE | 2022-02-19 13:43 | P.PN ---
Progress Note - Text Progress Note Date: 02/19/22 Presenting complaint: Short of breath Hospital course: This is a pleasant 76 years old male with past medical history of diabetes mellitus, hypertension, benign prostatic hypertrophy, hyperlipidemia Patient states that she has been having dyspnea for the last 3 months getting progressively worse over the last 2 weeks till yesterday he could not bear it anymore sided decided to go to [facility]. Also has been having cough with some phlegm unknown color no chest pain. Patient is complaining of from diarrhea and vomiting for the last 3 days with no abdominal pain. Yesterday he has one bout of loose bowel movement with no blood and lytes in color and he vomited twice with no blood as well. Patient denies any dysuria or urgency. He has some dizziness but no headache or weakness or numbness. However patient feels generally weak. Denies smoking alcohol or illicit tracts. It is not on home oxygen. He is Dr. Downs, network design architect Dr. Cortés and urologist is Dr. Martin Patient was transferred from [facility] for dyspnea. Vitals currently showing stable blood pressure 153/95. Patient is saturating 97% on BiPAP. Prior to that he was saturating 91-93% on 6 L oxygen via nasal cannula and he was tachypneic Labs here show an unremarkable CBC except for anemia with hemoglobin 8.5. High lactic acid came back to normal Urine analysis showing 2+ protein. Troponin is elevated at 0.19 [place] 94311 creatinine is elevated 7.1. 5 months ago creatinine was normal 0.8. Potassium currently normal formed 0.3 as well as sodium 139. Liver enzymes not significantly elevated. Chest x-ray:Opacity projecting the heart and more posteriorly correlate for pneumonia. A component of pulmonary vascular congestion may also be present. Correlate for CHF EKG showing atrial fibrillation's with controlled rate at 88, mild ST depression in V4 and V5 no other significant ST-T changes 02/16/2022: I assumed care of the patient today from [facility] hospitalist. Patient seen this morning. reclining in bed.. Short of breath. Eating fair. On 6 L nasal cannula. Patient was started on hemodialysis on February 14. Yesterday patient went into atrial flutter with a controlled rate. Back and assessment. 02/17/2022: Awake short of breath. Remains on 5 L nasal cannula. Oral intake fair. A bit tired. We'll have the patient sit up in a chair. Yesterday patient had hemodialysis catheter was replaced as it was malfunctioning. 02/18/2022: Hemodialysis today. FiO2 dropped to 3 L. 92%. Oral intake fair. PermCath placement scheduled for Wednesday. Atrial flutter rate controlled 02/19/2022: Resting in bed. For PermCath placement tomorrow. Oral intake good. Patient's come back positive for COVID 19. Active Medications Hydrocodone Bitart/Acetaminophen (Hydrocodone/Apap 5-325mg 1 Each Tab) 1 each PO BID PRN PRN Reason: Pain Allopurinol (Allopurinol 100 Mg Tab) 100 mg PO BID [facility] Last Admin: 02/19/22 08:30 Dose: 100 mg Alprazolam (Alprazolam 0.25 Mg Tab) 0.25 mg PO TID PRN PRN Reason: Anxiety Last Admin: 02/16/22 08:23 Dose: 0.25 mg Amlodipine Besylate (Amlodipine 5 Mg Tab) 5 mg PO BID [facility] Last Admin: 02/19/22 08:29 Dose: 5 mg Aspirin (Aspirin 81 Mg) 81 mg PO DAILY [facility] Last Admin: 02/19/22 08:30 Dose: 81 mg Azelastine HCl (Azelastine 137mcg/[place]) 2 spray NASAL BID [facility] Last Admin: 02/19/22 08:30 Dose: 2 spray Darbepoetin [place] (Darbepoetin [place] 40 Mcg/0.4 Ml Syringe) 40 mcg SQ Q7D [facility] Last Admin: 02/19/22 11:25 Dose: 40 mcg Famotidine (Famotidine 20 Mg Tab) 20 mg PO HS [facility] Last Admin: 02/18/22 20:38 Dose: 20 mg Insulin Aspart (Insulin Aspart (Novolog) 100 Unit/Ml Vial) 0 unit SQ [facility]; Protocol Last Admin: 02/19/22 06:14 Dose: Not Given Magnesium Oxide (Magnesium Oxide 400 Mg Tab) 400 mg PO DAILY [facility] Last Admin: 02/19/22 08:30 Dose: 400 mg Meclizine HCl (Meclizine 25 Mg Tab) 25 mg PO DAILY PRN PRN Reason: Vertigo Metoprolol Tartrate (Metoprolol Tartrate 50 Mg Tab) 50 mg PO BID [facility] Last Admin: 02/19/22 08:30 Dose: 50 mg Naloxone HCl (Naloxone 0.4 Mg/Ml 1 Ml Vial) 0.2 mg IV Q2M PRN PRN Reason: Opioid Reversal Pravastatin Sodium (Pravastatin Sodium 40 Mg Tab) 40 mg PO HS [facility] Last Admin: 02/18/22 20:38 Dose: 40 mg Sodium Bicarbonate (Sodium Bicarbonate Tab 650 Mg Tab) 650 mg PO BID [facility] Last Admin: 02/19/22 08:29 Dose: 650 mg Tamsulosin HCl (Tamsulosin 0.4 Mg Cap.Er.24h) 0.4 mg PO PC-BRKFST [facility] Last Admin: 02/19/22 08:29 Dose: 0.4 mg Torsemide (Torsemide 20 Mg Tab) 40 mg PO DAILY [facility] Last Admin: 02/19/22 08:30 Dose: 40 mg On examination: VITAL SIGNS: 98.2, 75, 18, 1 27 x 63, 93% on 3 L GENERAL APPEARANCE: Reclining in bed, comfortable HEENT: Normal external appearance of nose and ear. Oral cavity normal EYES: Pupils equal. Conjunctiva normal. NECK: JVD not raised. Mass not palpable. RESPIRATORY: Respiratory effort increased. Lungs decreased breath sounds CARDIOVASCULAR: Heart sounds irregular. No edema. ABDOMEN: Soft. Liver and spleen not palpable. No tenderness. No mass palpable. PSYCHIATRY: Alert and oriented x3. Mood and affect normal. INVESTIGATIONS, reviewed in the clinical context: 02/19/2022: Potassium 4.7 creatinine 4.9 to COVID 19 PCR: Detected 02/18/2022: Potassium 4.1 BUN 70 creatinine 5.77 02/17/2022: Potassium 4 BUN 52 creatinine 4.47 Chest x-ray film personally reviewed by ak-[February 16] cardiomegaly White count 5.5 globin 9.1 platelets 2214.1 BUN 78 creatinine 6.93 TSH 1.1 Hepatitis B core total antibody: Nonreactive Previous studies: 2-D echocardiogram [June 2021]: EF 55%, moderate aortic regurgitation, moderate MR, moderate TR. Nuclear stress test June 2021: Negative Assessment and plan: -Acute kidney injury secondary to ATN with component of urinary retention. Ultrasound unremarkable. Started on hemodialysis 02/14/2022. Being followed by nephrology. For outpatient renal biopsy. For PermCath Placement tomorrow. -Acute hypoxic respiratory failure from CHF: On 3 L nasal cannula. -COVID 19 pneumonitis Add dexamethasone -Possible pneumonia, suspect gram-negative organism: Improved IV ceftriaxone,'s completed 7 days.. Previously pro-calcitonin was elevated. Chest x-ray showed some infiltrate. -CAD with a prior history of coronary bypass -Moderate aortic regurgitation, moderate MR, moderate TR followed by cardiology -Metabolic acidosis due to acute kidney injury Oral bicarbonate. Getting dialysis. -Iron deficiency anemia IV ferrous gluconate. -Paroxysmal atrial flutter fibrillation, currently sinus rhythm Metoprolol. Eliquis. Follow-up with Dr. Kelly Cortés outpatient -Right kidney complex cystic lesion. Being followed by urology -Acute bladder outflow obstruction secondary to enlarged prostate . Hilario catheter. Flomax -Hypertension with chronic kidney disease -Acute on chronic diastolic CHF from EF 55% Hemodialysis -Hyperphosphatemia secondary to acute kidney injury Continue dialysis FiO2 3 L. discussed with patient. Had a dexamethasone. Because of COVID 19. For permanent catheter placement on Wednesday.
[2022-02-19] MEDS: dexAMETHasone 2 MG TAB PO SCH (14:44)
--- NOTE | 2022-02-19 15:55 | P.CNPUL ---
History of Present Illness Consult date: 02/19/22 Reason for consult: dyspnea History of present illness: Having an acute on top of chronic kidney injury and the patient's condition was essentially compensating and the patient was hospitalized for worsening renal function and acute hypoxic respiratory failure the patient was becoming also progressively more hypoxic, fluid overloaded. The patient is known to have diabetes, coronary artery disease with previous bypass surgery, hypertension, BPH, hyperlipidemia and his condition has been progressively getting worse over the past few months and over the past 2 weeks has noted increased lethargy, weakness, and worsening shortness of breath. He was also having some diarrhea and emesis she days prior to him coming into the hospital. Note that initially, Covid 19 testing was not done. During the course of his illness in the hospital, Covid 19 testing was done and the patient tested positive by PCR. The patient states that he has received Bon [employer] Bon vaccination. He has been also infection back in 2019 and 2020. For now, the patient's oxygen is being gradually improved and the patient was started on hemodialysis. Apparently is a temporary dialysis catheter multiple of these going to take a permacath Insertion. Vascular surgeries on the case. He was as high as 6 L O2 nasal cannula. Wean down to 3 L. He was started on steroids accordingly. In terms of his renal failure, the findings on the case. He may ultimately need a kidney biopsy. The patient is currently being treated for an acute kidney injury which is felt to be related to ATN secondary to urinary retention. No hydronephrosis. His creatinine from September 2021 was 0.8. He was started on hemodialysis on 02/14/2022. He has a femoral dialysis catheter in place. He is dynamic and he is receiving IV iron. He has some metabolic acidosis due to acute kidney injury and he was started on bicarb orally. His echocardiogram showed a chronic diastolic heart failure with moderate aortic and mitral regurgitation. It is a fluid overload which is improving with diuresis and ultrafiltration. Review of Systems CONSTITUTIONAL: No fever, no malaise, increased fatigue and diminished appetite HEENT: No recent visual problems or hearing problems. Denied any sore throat. CARDIOVASCULAR: No orthopnea, PND, no palpitations, no syncope. Exertional dyspnea PULMONARY: No chest wall tenderness, no hemoptysis. GASTROINTESTINAL: no nausea, no abdominal pain. Normoactive bowel sounds. NEUROLOGICAL: No headaches, no weakness, no numbness. HEMATOLOGICAL: Denies any bleeding or petechiae. GENITOURINARY: Denies any burning micturition, frequency, or urgency. MUSCULOSKELETAL/RHEUMATOLOGICAL: Denies any joint pain, swelling, or any muscle pain. ENDOCRINE: Denies any polyuria or polydipsia. Past Medical History Past Medical History: Coronary Artery Disease (CAD) (With previous bypass surgery), Diabetes Mellitus, Hypertension, Prostate Disorder, Renal Disease (Chronic kidney disease) History of Any Multi-Drug Resistant Organisms: None Reported Past Surgical History: Cholecystectomy, Coronary Bypass/CABG Additional Past Surgical History / Comment(s): 07 ACL ligament replacement Past Anesthesia/Blood Transfusion Reactions: No Reported Reaction Past Psychological History: No Psychological Hx Reported Smoking Status: Never smoker Past Alcohol Use History: None Reported Past Drug Use History: None Reported Medications and Allergies Home Medications Medication Instructions Recorded Confirmed Type Acetaminophen [Tylenol 8 Hour] 650 mg PO Q6H PRN 02/11/22 02/11/22 History Aspirin EC [Ecotrin Low Dose] 81 mg PO DAILY 02/11/22 02/11/22 History Azelastine HCl 2 spray NASAL BID 02/11/22 02/11/22 History Famotidine [Pepcid] 20 mg PO DAILY 02/11/22 02/11/22 History HYDROcodone/APAP 5-325MG [[place] 1 tab PO BID PRN 02/11/22 02/11/22 History 5-325] Meclizine HCl [Antivert] 25 mg PO DAILY PRN 02/11/22 02/11/22 History Metoprolol Tartrate [Lopressor] 50 mg PO BID 02/11/22 02/11/22 History Nitroglycerin Sl Tabs [Nitrostat] 0.4 mg SL Q5M PRN 02/11/22 02/11/22 History Potassium Chloride ER [K-Dur 10] 10 meq PO DAILY 02/11/22 02/11/22 History Pravastatin Sodium [Pravachol] 40 mg PO HS 02/11/22 02/11/22 History Repaglinide [Prandin] 1 mg PO HS 02/11/22 02/11/22 History Tamsulosin HCl [Flomax] 0.4 mg PO BID 02/11/22 02/11/22 History allopurinoL [Zyloprim] 100 mg PO BID 02/11/22 02/11/22 History amLODIPine [Norvasc] 5 mg PO DAILY 02/11/22 02/11/22 History hydroCHLOROthiazide [Hydrodiuril] 25 mg PO DAILY 02/11/22 02/11/22 History metFORMIN HCL [Glucophage] 1,000 mg PO BID 02/11/22 02/11/22 History Allergies Allergy/AdvReac Type Severity Reaction Status Date / Time duloxetine [From Cymbalta] Allergy Rash/Hives Verified 02/11/22 21:57 enalaprilat [From Vasotec] Allergy Unknown Verified 02/11/22 21:57 levofloxacin [From Levaquin] Allergy Rash/Hives Verified 02/11/22 21:57 saxagliptin [From Onglyza] Allergy Rash/Hives Verified 02/11/22 21:57 sulfamethoxazole Allergy Rash/Hives Verified 02/11/22 21:57 [From Bactrim] trimethoprim [From Bactrim] Allergy Rash/Hives Verified 02/11/22 21:57 Physical Exam Vitals: Vital Signs Temp Pulse Resp BP Pulse Ox 02/19/22 14:00 64 02/19/22 11:33 64 17 121/59 97 02/19/22 08:30 98.2 F 75 18 127/63 93 L 02/19/22 07:27 94 L 02/19/22 03:48 97.1 F L 64 16 130/65 95 02/19/22 00:39 64 16 117/60 94 L 02/18/22 20:00 97.1 F L 70 16 141/71 92 L Intake and Output 02/19/22 02/19/22 02/19/22 06:59 14:59 22:59 Intake Total 180 Output Total 300 Balance -300 180 Intake: Oral 180 Output: Urine 300 Other: Voiding Method Indwelling Catheter Indwelling Catheter Weight 59.8 kg GENERAL: The patient is alert and oriented x3, not in any acute distress. Well developed, well nourished. The patient is currently on 3 L O2 nasal cannula HEENT: Pupils are round and equally reacting to light. EOMI. No scleral icterus. No conjunctival pallor. Normocephalic, atraumatic. No pharyngeal erythema. No thyromegaly. CARDIOVASCULAR: S1 and S2 present. No murmurs, rubs, or gallops. --PULMONARY: Chest is clear to auscultation, no wheezing , very mild bilateral basal crepitation ABDOMEN: Soft, nontender, nondistended, normoactive bowel sounds. No palpable organomegaly. MUSCULOSKELETAL: No joint swelling or deformity. EXTREMITIES: No cyanosis, clubbing, or pedal edema. NEUROLOGICAL: Gross neurological examination did not reveal any focal deficits. SKIN: No rashes. no petechiae. Results - Laboratory Findings CBC and BMP: 02/16/22 08:50 02/19/22 12:01 PT/INR, D-dimer PT 11.6 sec (9.0-12.0) 02/12/22 03:26 INR 1.1 (<1.2) 02/12/22 03:26 Abnormal lab findings: Abnormal Labs 02/11/22 02/11/22 02/11/22 21:03 21:03 21:03 RBC 2.74 L Hgb 9.1 L Hct 27.0 L MCV Lymphocytes # APTT 33.1 H Sodium Chloride 110 H Carbon Dioxide 18 L BUN 65 H Creatinine 7.16 H* Glucose 160 H POC Glucose (mg/dL) Plasma Lactic Acid Sawyer Calcium 8.3 L Phosphorus Iron AST 16 L Troponin I Procalcitonin Urine Protein Urine Glucose (UA) Urine Blood Urine Bacteria Urine Mucus Coronavirus (PCR) 02/11/22 02/11/22 02/12/22 21:03 21:03 00:26 RBC Hgb Hct MCV Lymphocytes # APTT Sodium Chloride Carbon Dioxide BUN Creatinine Glucose POC Glucose (mg/dL) Plasma Lactic Acid Sawyer 2.1 H* Calcium Phosphorus Iron AST Troponin I 0.193 H* Procalcitonin Urine Protein 2+ H Urine Glucose (UA) Trace H Urine Blood Trace H Urine Bacteria Rare H Urine Mucus Rare H Coronavirus (PCR) 02/12/22 02/12/22 02/12/22 00:35 03:26 03:26 RBC 2.52 L Hgb 8.5 L Hct 25.3 L MCV 100.3 H Lymphocytes # 0.7 L APTT 84.4 H Sodium Chloride Carbon Dioxide BUN Creatinine Glucose POC Glucose (mg/dL) Plasma Lactic Acid Sawyer 4.0 H* Calcium Phosphorus Iron AST Troponin I Procalcitonin Urine Protein Urine Glucose (UA) Urine Blood Urine Bacteria Urine Mucus Coronavirus (PCR) 02/12/22 02/12/22 02/12/22 08:57 11:46 16:32 RBC Hgb Hct MCV Lymphocytes # APTT 48.2 H Sodium Chloride 109 H Carbon Dioxide 19 L BUN 64 H Creatinine 7.74 H* Glucose 165 H POC Glucose (mg/dL) 137 H Plasma Lactic Acid Sawyer Calcium 8.2 L Phosphorus Iron AST Troponin I Procalcitonin Urine Protein Urine Glucose (UA) Urine Blood Urine Bacteria Urine Mucus Coronavirus (PCR) 02/12/22 02/13/22 02/13/22 20:38 06:13 08:52 RBC Hgb Hct MCV Lymphocytes # APTT Sodium Chloride Carbon Dioxide BUN Creatinine Glucose POC Glucose (mg/dL) 196 H 165 H Plasma Lactic Acid Sawyer Calcium Phosphorus Iron AST Troponin I Procalcitonin 0.41 H Urine Protein Urine Glucose (UA) Urine Blood Urine Bacteria Urine Mucus Coronavirus (PCR) 02/13/22 02/13/22 02/13/22 08:52 08:52 11:32 RBC 2.46 L Hgb 8.3 L Hct 24.4 L MCV Lymphocytes # APTT Sodium Chloride Carbon Dioxide 18 L BUN 75 H Creatinine 8.24 H* Glucose 233 H POC Glucose (mg/dL) 204 H Plasma Lactic Acid Sawyer Calcium 7.8 L Phosphorus Iron AST Troponin I Procalcitonin Urine Protein Urine Glucose (UA) Urine Blood Urine Bacteria Urine Mucus Coronavirus (PCR) 02/13/22 02/13/22 02/14/22 16:35 20:06 05:56 RBC Hgb Hct MCV Lymphocytes # APTT Sodium Chloride Carbon Dioxide BUN Creatinine Glucose POC Glucose (mg/dL) 188 H 269 H 177 H Plasma Lactic Acid Sawyer Calcium Phosphorus Iron AST Troponin I Procalcitonin Urine Protein Urine Glucose (UA) Urine Blood Urine Bacteria Urine Mucus Coronavirus (PCR) 02/14/22 02/14/22 02/14/22 11:39 11:45 16:33 RBC Hgb Hct MCV Lymphocytes # APTT Sodium Chloride Carbon Dioxide BUN Creatinine Glucose POC Glucose (mg/dL) 235 H 202 H Plasma Lactic Acid Sawyer Calcium Phosphorus Iron 40 L AST Troponin I Procalcitonin Urine Protein Urine Glucose (UA) Urine Blood Urine Bacteria Urine Mucus Coronavirus (PCR) 02/14/22 02/15/22 02/15/22 20:39 06:14 07:32 RBC 2.94 L Hgb 9.7 L Hct 29.3 L MCV Lymphocytes # APTT Sodium Chloride Carbon Dioxide BUN Creatinine Glucose POC Glucose (mg/dL) 193 H 162 H Plasma Lactic Acid Sawyer Calcium Phosphorus Iron AST Troponin I Procalcitonin Urine Protein Urine Glucose (UA) Urine Blood Urine Bacteria Urine Mucus Coronavirus (PCR) 02/15/22 02/15/22 02/15/22 07:32 11:39 16:16 RBC Hgb Hct MCV Lymphocytes # APTT Sodium Chloride Carbon Dioxide 20 L BUN 79 H Creatinine 6.99 H Glucose 137 H POC Glucose (mg/dL) 166 H 236 H Plasma Lactic Acid Sawyer Calcium 8.0 L Phosphorus 5.5 H Iron AST 14 L Troponin I Procalcitonin Urine Protein Urine Glucose (UA) Urine Blood Urine Bacteria Urine Mucus Coronavirus (PCR) 02/15/22 02/16/22 02/16/22 19:57 06:07 08:50 RBC 2.79 L Hgb 9.1 L Hct 28.0 L MCV 100.5 H Lymphocytes # 0.7 L APTT Sodium Chloride Carbon Dioxide BUN Creatinine Glucose POC Glucose (mg/dL) 223 H 140 H Plasma Lactic Acid Sawyer Calcium Phosphorus Iron AST Troponin I Procalcitonin Urine Protein Urine Glucose (UA) Urine Blood Urine Bacteria Urine Mucus Coronavirus (PCR) 02/16/22 02/16/22 02/16/22 09:10 11:53 16:31 RBC Hgb Hct MCV Lymphocytes # APTT Sodium Chloride Carbon Dioxide 21 L BUN 78 H Creatinine 6.93 H Glucose 202 H POC Glucose (mg/dL) 257 H 131 H Plasma Lactic Acid Sawyer Calcium 7.9 L Phosphorus Iron AST Troponin I Procalcitonin Urine Protein Urine Glucose (UA) Urine Blood Urine Bacteria Urine Mucus Coronavirus (PCR) 02/16/22 02/17/22 02/17/22 19:59 06:12 06:56 RBC Hgb Hct MCV Lymphocytes # APTT Sodium Chloride Carbon Dioxide BUN 52 H Creatinine 4.47 H Glucose 107 H POC Glucose (mg/dL) 173 H 121 H Plasma Lactic Acid Sawyer Calcium 7.8 L Phosphorus Iron AST Troponin I Procalcitonin Urine Protein Urine Glucose (UA) Urine Blood Urine Bacteria Urine Mucus Coronavirus (PCR) 02/17/22 02/17/22 02/17/22 11:50 16:59 20:03 RBC Hgb Hct MCV Lymphocytes # APTT Sodium Chloride Carbon Dioxide BUN Creatinine Glucose POC Glucose (mg/dL) 138 H 178 H 152 H Plasma Lactic Acid Sawyer Calcium Phosphorus Iron AST Troponin I Procalcitonin Urine Protein Urine Glucose (UA) Urine Blood Urine Bacteria Urine Mucus Coronavirus (PCR) 02/18/22 02/18/22 02/18/22 05:54 07:51 12:02 RBC Hgb Hct MCV Lymphocytes # APTT Sodium 136 L Chloride Carbon Dioxide 20 L BUN 70 H Creatinine 5.77 H Glucose 127 H POC Glucose (mg/dL) 119 H 206 H Plasma Lactic Acid Sawyer Calcium 8.2 L Phosphorus Iron AST Troponin I Procalcitonin Urine Protein Urine Glucose (UA) Urine Blood Urine Bacteria Urine Mucus Coronavirus (PCR) 02/18/22 02/18/22 02/19/22 15:00 19:48 06:01 RBC Hgb Hct MCV Lymphocytes # APTT Sodium Chloride Carbon Dioxide BUN Creatinine Glucose POC Glucose (mg/dL) 160 H 114 H Plasma Lactic Acid Sawyer Calcium Phosphorus Iron AST Troponin I Procalcitonin Urine Protein Urine Glucose (UA) Urine Blood Urine Bacteria Urine Mucus Coronavirus (PCR) Detected A 02/19/22 02/19/22 12:01 12:03 RBC Hgb Hct MCV Lymphocytes # APTT Sodium Chloride Carbon Dioxide BUN 55 H Creatinine 4.92 H Glucose 142 H POC Glucose (mg/dL) 136 H Plasma Lactic Acid Sawyer Calcium 8.2 L Phosphorus Iron AST Troponin I Procalcitonin Urine Protein Urine Glucose (UA) Urine Blood Urine Bacteria Urine Mucus Coronavirus (PCR) - Diagnostic Findings Chest x-ray: image reviewed Assessment and Plan Plan: Acute hypoxic respiratory failure with signs of fluid overload at the time of admission, gradually improved and the patient started on hemodialysis on 02/14/2022 and the patient is currently on 3 L of oxygen by nasal cannula. There may be also some contribution to Covid 19 related pneumonia although this can be very minimal. The patient has been infected with a rise in the past and the patient's vaccinated using a [employer] vaccine 1. No other manifestations to suggest ongoing Covid 19 infection. Acute Covid 19 infection, previously vaccinated with a [employer] vaccine and the patient has been infected in the presence of the same virus 2 Acute kidney injury. The patient had likely an ATN with a component of urinary retention, currently on hemodialysis on 02/14/2022 Diabetes mellitus type 2 Chronic diastolic heart failure with evidence of moderate degree of aortic and mitral valve regurgitation Coronary artery disease with previous bypass surgery. Hypertension Hyperlipidemia Anemia of iron deficiency type and possibly a component of chronic kidney disease Urinary retention, currently on Flomax and the patient has a Hilario catheter in place Metabolic acidosis, improved Plan Continue hemodialysis per nephrology We will ultimately need a permacath May consider kidney biopsy there is no convincing reason for his renal failure No nephrotoxic agents Given a seven-day course of Decadron 6 mg by mouth daily for the possibility of Covid 19 related pneumonia although this is not certain Wean down FiO2 as tolerated to [facility] about 90% Continue Demadex We'll continue to follow
[2022-02-19 16:57] LABS: Glucose,Whole Blood 265 mg/dL (70-110)
[2022-02-19 20:20] LABS: Glucose,Whole Blood 283 mg/dL (70-110)
[2022-02-19] MEDS: FAMOTIDINE 20 MG TAB PO SCH (20:47)
[2022-02-19] MEDS: PRAVASTATIN SODIUM 40 MG TAB PO SCH (20:47)
[2022-02-20 06:23] LABS: Glucose,Whole Blood 387 mg/dL (70-110)
[2022-02-20] MEDS: INSULIN ASPART (NovoLOG) 100 UNIT/ML VIAL SQ SCH ×4 (06:31→21:41)
[2022-02-20] MEDS ORDERED: MIDAZOLAM 2 MG/2 ML VIAL IV ONE (07:55)
[2022-02-20] MEDS ORDERED: LIDOCAINE 1% INJ 10MG/ML (30 ML VIAL-PF) SQ ONE (07:57)
--- NOTE | 2022-02-20 08:53 | IR ---
EXAMINATION TYPE: IR cvc insert central tunneled DATE OF EXAM: 02/20/2022 COMPARISON: NONE HISTORY: Fluoroscopy time. Fluoroscopy was provided to the referring clinician.
--- NOTE | 2022-02-20 09:13 | P.OP ---
Date of Procedure: 02/20/22 Description of Procedure: DATE OF PROCEDURE: 02/20/2022 PREOPERATIVE DIAGNOSIS: End-stage renal disease, on dialysis Surgeon: Yanelis PROCEDURE: 1. Ultrasound-guided right internal jugular vein access. 2. Placement of a 19 cm tunneled dialysis catheter with fluoroscopic assistance. 3. Moderate conscious sedation times 15 minutes PROCEDURE: The patient was brought to the Security Operations Engineer placed in supine position. The bilateral necks were prepped and draped in usual sterile fashion. A preprocedure timeout was performed, all parties were in agreement. Using ultrasound the right internal jugular was identified and found to be patent and compressible, free of thrombus. Permanent images stored.. The site overlying the vein was anesthetized with 1% lidocaine plain and an access needle was used to gain access to the internal jugular vein with return of dark venous, nonpulsatile blood. Seldinger technique was used and a micro-access sheath was placed. Attention was then turned towards the tunnel. The chest wall was anesthetized with 1% lidocaine plain. A small adeola and the skin was made and the previously flushed catheter was tunneled through the anticipated location. Using Seldinger technique and fluoroscopic assistance, the 35 Glidewire was placed and the tract was serially dilated. The final tear-away sheath was left in place. The inner cannula and wire were removed. The catheter was placed in the tear-away sheath was removed in standard fashion. The catheter showed good positioning was final resting place in the cavoatrial junction. The catheter aspirated and flushed freely. The incision at the neck was reapproximated with interrupted sutures of 4-0 Vicryl. The catheter was sutured in place with 3-0 nylon. Dressings were placed. The patient was allowed to awaken from anesthesia and transferred to recovery in stable condition having tolerated the procedure well. A post procedure chest x-ray is pending
[2022-02-20] MEDS: ASPIRIN 81 MG PO SCH (10:06)
[2022-02-20] MEDS: TORSEMIDE 20 MG TAB PO SCH (10:06)
[2022-02-20] MEDS: TAMSULOSIN 0.4 MG CAP.ER.24H PO SCH (10:06)
[2022-02-20] MEDS: dexAMETHasone 2 MG TAB PO SCH (10:06)
[2022-02-20] MEDS: SODIUM BICARBONATE TAB 650 MG TAB PO SCH ×2 (10:07→21:41)
[2022-02-20] MEDS: MAGNESIUM OXIDE 400 MG TAB PO SCH (10:07)
[2022-02-20] MEDS: allopurinoL 100 MG TAB PO SCH ×2 (10:07→21:41)
[2022-02-20] MEDS: AZELASTINE 137MCG/SPRAY NASAL SCH ×2 (10:10→21:42)
[2022-02-20] MEDS: METOPROLOL TARTRATE 50 MG TAB PO SCH ×2 (10:11→21:41)
[2022-02-20] MEDS: amLODIPine 5 MG TAB PO SCH ×2 (10:11→21:41)
--- NOTE | 2022-02-20 11:45 | P.PN ---
Subjective Patient is seen in follow-up for acute kidney injury. Started on hemodialysis 02/14/2022. Nonoliguric. On 3 L nasal cannula. No vomiting or diarrhea. Oral intake is fair. Blood pressure stable. Denies chest pain or shortness of breath. Tolerating dialysis well. Vital signs are stable. General: Awake. No acute distress. HEENT: Head exam is unremarkable. On nasal cannula. LUNGS: Breath sounds decreased. HEART: Rate and Rhythm are regular. ABDOMEN: Soft, no distention. EXTREMITITES: No edema. Objective - Vital Signs Vital signs: Vital Signs Temp 96.7 F L 02/20/22 10:00 Pulse 60 02/20/22 10:33 Resp 18 02/20/22 10:33 BP 137/70 02/20/22 10:00 Pulse Ox 93 L 02/20/22 10:00 FiO2 50 02/14/22 00:12 Intake & Output 02/19/22 02/20/22 02/20/22 18:59 06:59 18:59 Intake Total 652 118 50 Output Total 700 Balance 652 -582 50 Weight 60.1 kg Intake: IV 50 Oral 652 118 Output: Urine 700 Other: Voiding Method Indwelling Catheter Indwelling Catheter Indwelling Catheter - Labs CBC & Chem 7: 02/16/22 08:50 02/19/22 12:01 Labs: Abnormal Lab Results - Last 24 Hours (Table) 02/19/22 02/19/22 02/19/22 Range/Units 12:01 12:03 16:47 BUN 55 H (9-20) mg/dL Creatinine 4.92 H (0.66-1.25) mg/dL Glucose 142 H (74-99) mg/dL POC Glucose (mg/dL) 136 H 265 H (70-110) mg/dL Calcium 8.2 L (8.4-10.2) mg/dL 02/19/22 02/20/22 Range/Units 20:10 06:21 BUN (9-20) mg/dL Creatinine (0.66-1.25) mg/dL Glucose (74-99) mg/dL POC Glucose (mg/dL) 283 H 387 H (70-110) mg/dL Calcium (8.4-10.2) mg/dL Assessment and Plan Plan: Assessment: 1. Acute kidney injury secondary to ATN with component of urinary retention. No hydronephrosis noted on kidney ultrasound. Creatinine was 0.8 in August 2021. Creatinine was over 7 this admission. Rule out GN. Started on hemodialysis 02/14/2022. Permacath placed this morning. Nonoliguric. 2. Metabolic acidosis secondary to acute kidney injury. Metformin held. Improved. 3. Anemia. Iron deficiency noted. Status post IV iron and completed 02/18/2022. On Aranesp. 4. Right kidney complex cystic lesion. Urology following. 5. Urinary retention. Has Hilario catheter. On Flomax. 6. Hypertension with chronic kidney disease. Stable. 7. Acute on chronic diastolic CHF with moderate aortic and mitral regurgitation. Cardiology following. 8. Diabetes mellitus. 9. Hyperphosphatemia secondary to acute kidney injury. Phosphorus 4.5 dated 02/17/2022. 10. Volume overload. Improved with diuresis and ultrafiltration. 11. Hypomagnesemia from diuresis. On oral magnesium oxide. Better. 12. COVID-19 infection. Plan: Currently seen while undergoing hemodialysis. He will be maintained on Wednesday schedule. Maintain torsemide. Serologies negative. Will consider kidney biopsy outpatient once more stable medically. Monitor for renal recovery outpatient. Outpatient dialysis to be set up by case filler.
[2022-02-20 11:56] LABS: Glucose,Whole Blood 177 mg/dL (70-110)
--- NOTE | 2022-02-20 14:17 | XR ---
EXAMINATION TYPE: XR chest 1V portable DATE OF EXAM: 02/20/2022 COMPARISON: 02/16/2022 HISTORY: Line placement TECHNIQUE: Single frontal view of the chest is obtained. FINDINGS: Right-sided dialysis catheter seen with no sizable pneumothorax. Soft tissue artifact note d overlying the right upper hemithorax. Limited inspiration with postsurgical changes and mild cardio megaly. Underlying COPD. Mild elevation left hemidiaphragm stable. No overt failure. Hypertrophic and degenerative changes of the spine and arthropathy of the shoulders with diffuse osteopenia. IMPRESSION: 1. COPD and cardiomegaly
--- NOTE | 2022-02-20 16:18 | P.PN ---
Subjective Progress Note Date: 02/20/22 On today's evaluation of 02/20/2022, the patient is doing well. The patient is undergoing dialysis and the patient's occupation is improved. The patient was placed on room air oxygen. At the same time, the patient had a Covid 19 infection and erythematous discharge, the patient will be given a prednisone burst taper. He is currently on Decadron 6 mg by mouth daily basis. No worsening shortness of breath. No chest pain. No fever or chills. Hemodynamically stable. The patient's blood work from yesterday showed an impaired renal function with a creatinine of 4.9 and a BUN of 55. Sodium was at 137. The patient also underwent a ultrasound-guided right internal jugular permacath insertion. Objective - Vital Signs Vital signs: Vital Signs Temp 97.0 F L 02/20/22 13:50 Pulse 71 02/20/22 14:04 Resp 16 02/20/22 14:04 BP 156/72 02/20/22 13:50 Pulse Ox 91 L 02/20/22 12:48 FiO2 50 02/14/22 00:12 Intake & Output 02/19/22 02/20/22 02/20/22 18:59 06:59 18:59 Intake Total 652 118 350 Output Total 700 2700 Balance 652 -582 -2350 Weight 60.1 kg Intake: IV 50 Oral 652 118 Hemodialysis 300 Output: Urine 700 700 Hemodialysis 2000 Other: Voiding Method Indwelling Catheter Indwelling Catheter Indwelling Catheter # Voids 1 - Exam GENERAL: The patient is alert and oriented x3, not in any acute distress. Well developed, well nourished. The patient is currently on room air oxygen HEENT: Pupils are round and equally reacting to light. EOMI. No scleral icterus. No conjunctival pallor. Normocephalic, atraumatic. No pharyngeal erythema. No thyromegaly. CARDIOVASCULAR: S1 and S2 present. No murmurs, rubs, or gallops. --PULMONARY: Chest is clear to auscultation, no wheezing , very mild bilateral basal crepitation ABDOMEN: Soft, nontender, nondistended, normoactive bowel sounds. No palpable or ganomegaly. MUSCULOSKELETAL: No joint swelling or deformity. EXTREMITIES: No cyanosis, clubbing, or pedal edema. NEUROLOGICAL: Gross neurological examination did not reveal any focal deficits. SKIN: No rashes. no petechiae. - Labs CBC & Chem 7: 02/16/22 08:50 02/19/22 12:01 Labs: Abnormal Lab Results - Last 24 Hours (Table) 02/19/22 02/19/22 02/20/22 Range/Units 16:47 20:10 06:21 POC Glucose (mg/dL) 265 H 283 H 387 H (70-110) mg/dL 02/20/22 Range/Units 11:55 POC Glucose (mg/dL) 177 H (70-110) mg/dL Assessment and Plan Plan: Acute hypoxic respiratory failure with signs of fluid overload at the time of admission, gradually improved and the patient started on hemodialysis on 02/14/2022 and the patient is currently on room air oxygen as the patient's occupation is improved. There may be also some contribution to Covid 19 related pneumonia although this can be very minimal. The patient has been infected with a rise in the past and the patient's vaccinated using a Bon & Bon vaccine 1. No other manifestations to suggest ongoing Covid 19 infection. I believe the patient's acute hypoxic respiratory failure was essentially due to renal failure and fluid overload. No clear indication for an underlying pneumonia. Acute Covid 19 infection, previously vaccinated with a Bon & Bon vaccine and the patient has been infected in the presence of the same virus 2 Acute kidney injury. The patient had likely an ATN with a component of urinary retention, currently on hemodialysis on 02/14/2022 Diabetes mellitus type 2 Chronic diastolic heart failure with evidence of moderate degree of aortic and mitral valve regurgitation Coronary artery disease with previous bypass surgery. Hypertension Hyperlipidemia Anemia of iron deficiency type and possibly a component of chronic kidney disease Urinary retention, currently on Flomax and the patient has a Hilario catheter in place Metabolic acidosis, improved Plan Continue hemodialysis per nephrology Permacath in the right IJ was placed today Accession stable and the patient is currently on room air oxygen, improved Provide incentive spirometer, May give a prednisone burst taper at time of discharge May consider kidney biopsy there is no convincing reason for his renal failure No nephrotoxic agents Given a seven-day course of Decadron 6 mg by mouth daily for the possibility of Covid 19 related pneumonia although this is not certain Continue Demadex We'll continue to follow, possible discharge today
[2022-02-20 16:52] LABS: Glucose,Whole Blood 277 mg/dL (70-110)
[2022-02-20] MEDS ORDERED: DESMOPRESSIN ACETATE 18 MCG in SODIUM CHLORIDE 0.9% 50 ML IVPB ONE (18:00)
--- NOTE | 2022-02-20 19:35 | P.PN ---
Progress Note - Text Progress Note Date: 02/20/22 Presenting complaint: Short of breath Hospital course: This is a pleasant 76 years old male with past medical history of diabetes mellitus, hypertension, benign prostatic hypertrophy, hyperlipidemia Patient states that she has been having dyspnea for the last 3 months getting progressively worse over the last 2 weeks till yesterday he could not bear it anymore sided decided to go to [facility]. Also has been having cough with some phlegm unknown color no chest pain. Patient is complaining of from diarrhea and vomiting for the last 3 days with no abdominal pain. Yesterday he has one bout of loose bowel movement with no blood and lytes in color and he vomited twice with no blood as well. Patient denies any dysuria or urgency. He has some dizziness but no headache or weakness or numbness. However patient feels generally weak. Denies smoking alcohol or illicit tracts. It is not on home oxygen. He is Dr. Downs, press hand Dr. Cortés and urologist is Dr. Martin Patient was transferred from [facility] for dyspnea. Vitals currently showing stable blood pressure 153/95. Patient is saturating 97% on BiPAP. Prior to that he was saturating 91-93% on 6 L oxygen via nasal cannula and he was tachypneic Labs here show an unremarkable CBC except for anemia with hemoglobin 8.5. High lactic acid came back to normal Urine analysis showing 2+ protein. Troponin is elevated at 0.19 [place] 33805 creatinine is elevated 7.1. 5 months ago creatinine was normal 0.8. Potassium currently normal formed 0.3 as well as sodium 139. Liver enzymes not significantly elevated. Chest x-ray:Opacity projecting the heart and more posteriorly correlate for pneumonia. A component of pulmonary vascular congestion may also be present. Correlate for CHF EKG showing atrial fibrillation's with controlled rate at 88, mild ST depression in V4 and V5 no other significant ST-T changes 02/16/2022: I assumed care of the patient today from [facility] hospitalist. Patient seen this morning. reclining in bed.. Short of breath. Eating fair. On 6 L nasal cannula. Patient was started on hemodialysis on February 14. Yesterday patient went into atrial flutter with a controlled rate. Back and assessment. 02/17/2022: Awake short of breath. Remains on 5 L nasal cannula. Oral intake fair. A bit tired. We'll have the patient sit up in a chair. Yesterday patient had hemodialysis catheter was replaced as it was malfunctioning. 02/18/2022: Hemodialysis today. FiO2 dropped to 3 L. 92%. Oral intake fair. PermCath placement scheduled for Wednesday. Atrial flutter rate controlled 02/19/2022: Resting in bed. For PermCath placement tomorrow. Oral intake good. Patient's come back positive for COVID 19. 02/20/2022: New PermCath placed in the right upper chest by Dr. Taryn Hilario from yesterday. Getting dialyzed today. Some blood oozing from the dialysis catheter site. Spoke to Dr. Hilario. For pressure dressing. Spoke to the pillowcase maker this morning. Per PT OT patient was stable to go home. At the patient review again by PT OT this afternoon. On second assessment if felt patient should go to rehab. Because of COVID places limited. Breathing better. Oral intake fair. I called patient's this evening given an update. Case manag ement will reassess on Wednesday. About rehab placement. Active Medications Hydrocodone Bitart/Acetaminophen (Hydrocodone/Apap 5-325mg 1 Each Tab) 1 each PO BID PRN PRN Reason: Pain Allopurinol (Allopurinol 100 Mg Tab) 100 mg PO BID [facility] Last Admin: 02/20/22 10:07 Dose: 100 mg Alprazolam (Alprazolam 0.25 Mg Tab) 0.25 mg PO TID PRN PRN Reason: Anxiety Last Admin: 02/16/22 08:23 Dose: 0.25 mg Amlodipine Besylate (Amlodipine 5 Mg Tab) 5 mg PO BID [facility] Last Admin: 02/20/22 10:11 Dose: Not Given Aspirin (Aspirin 81 Mg) 81 mg PO DAILY [facility] Last Admin: 02/20/22 10:06 Dose: 81 mg Azelastine HCl (Azelastine 137mcg/[place]) 2 spray NASAL BID [facility] Last Admin: 02/20/22 10:10 Dose: 2 spray Darbepoetin Louis (Darbepoetin Louis 40 Mcg/0.4 Ml Syringe) 40 mcg SQ Q7D [facility] Last Admin: 02/19/22 11:25 Dose: 40 mcg Dexamethasone (Dexamethasone 2 Mg Tab) 6 mg PO DAILY [facility] Last Admin: 02/20/22 10:06 Dose: 6 mg Famotidine (Famotidine 20 Mg Tab) 20 mg PO HS [facility] Last Admin: 02/19/22 20:47 Dose: 20 mg Insulin Aspart (Insulin Aspart (Novolog) 100 Unit/Ml Vial) 0 unit SQ ACHS [facility]; Protocol Last Admin: 02/20/22 17:45 Dose: 3 unit Magnesium Oxide (Magnesium Oxide 400 Mg Tab) 400 mg PO DAILY [facility] Last Admin: 02/20/22 10:07 Dose: 400 mg Meclizine HCl (Meclizine 25 Mg Tab) 25 mg PO DAILY PRN PRN Reason: Vertigo Metoprolol Tartrate (Metoprolol Tartrate 50 Mg Tab) 50 mg PO BID [facility] Last Admin: 02/20/22 10:11 Dose: Not Given Naloxone HCl (Naloxone 0.4 Mg/Ml 1 Ml Vial) 0.2 mg IV Q2M PRN PRN Reason: Opioid Reversal Pravastatin Sodium (Pravastatin Sodium 40 Mg Tab) 40 mg PO [facility] Last Admin: 02/19/22 20:47 Dose: 40 mg Sodium Bicarbonate (Sodium Bicarbonate Tab 650 Mg Tab) 650 mg PO BID [facility] Last Admin: 02/20/22 10:07 Dose: 650 mg Tamsulosin HCl (Tamsulosin 0.4 Mg Cap.Er.24h) 0.4 mg PO -BRKFST [facility] Last Admin: 02/20/22 10:06 Dose: 0.4 mg Torsemide (Torsemide 20 Mg Tab) 40 mg PO DAILY [facility] Last Admin: 02/20/22 10:06 Dose: 40 mg On examination: VITAL SIGNS: 97, 71, 16, 1 56 x 72, 92% on room air GENERAL APPEARANCE: Reclining in bed, comfortable, getting dialysis. Right upper chest wall PermCath with some blood leakage. Pressure dressing. HEENT: Normal external appearance of nose and ear. Oral cavity normal EYES: Pupils equal. Conjunctiva normal. NECK: JVD not raised. Mass not palpable. RESPIRATORY: Respiratory effort increased. Lungs decreased breath sounds CARDIOVASCULAR: Heart sounds irregular. No edema. ABDOMEN: Soft. Liver and spleen not palpable. No tenderness. No mass palpable. PSYCHIATRY: Alert and oriented x3. Mood and affect normal. INVESTIGATIONS, reviewed in the clinical context: 02/20/2022: White count 15.6 hemoglobin 7.7 platelets with 75 potassium 3.9 creatinine 0.75 02/19/2022: Potassium 4.7 creatinine 4.9 to COVID 19 PCR: Detected 02/18/2022: Potassium 4.1 BUN 70 creatinine 5.77 02/17/2022: Potassium 4 BUN 52 creatinine 4.47 Chest x-ray film personally reviewed by me-[February 16] cardiomegaly White count 5.5 globin 9.1 platelets 2214.1 BUN 78 creatinine 6.93 TSH 1.1 Hepatitis B core total antibody: Nonreactive Previous studies: 2-D echocardiogram [June 2021]: EF 55%, moderate aortic regurgitation, moderate MR, moderate TR. Nuclear stress test June 2021: Negative Assessment and plan: -Acute kidney injury secondary to ATN with component of urinary retention. Ultrasound unremarkable. Started on hemodialysis 02/14/2022. Being followed by nephrology. For outpatient renal biopsy. PermCath placed by Dr. Taryn Hilario on February 20. -Acute hypoxic respiratory failure from CHF: : Improving On 2 L nasal cannula. -COVID 19 pneumonitis dexamethasone -Possible pneumonia, suspect gram-negative organism: Improved IV ceftriaxone,'s completed 7 days.. Previously pro-calcitonin was elevated. Chest x-ray showed some infiltrate. -CAD with a prior history of coronary bypass -Moderate aortic regurgitation, moderate MR, moderate TR followed by cardiology -Metabolic acidosis due to acute kidney injury Oral bicarbonate. Getting dialysis. -Iron deficiency anemia IV ferrous gluconate. -Paroxysmal atrial flutter fibrillation, currently sinus rhythm Metoprolol. Eliquis. Follow-up with Dr. Kelly Crotés outpatient -Right kidney complex cystic lesion. Being followed by urology -Acute bladder outflow obstruction secondary to enlarged prostate . Hilario catheter. Flomax -Hypertension with chronic kidney disease -Acute on chronic diastolic CHF from EF 55% Hemodialysis -Hyperphosphatemia secondary to acute kidney injury Continue dialysis Discussed with patient's , pillowcase maker, Dr. Villalpando, nephrology. Patient reassessed by PT OT. For rehab placement. Not until Wednesday. Total time spent today about 50 minutes with over 30 minutes of discussion.
[2022-02-20 20:29] LABS: Glucose,Whole Blood 360 mg/dL (70-110)
[2022-02-20] MEDS: PRAVASTATIN SODIUM 40 MG TAB PO SCH (21:41)
[2022-02-20] MEDS: FAMOTIDINE 20 MG TAB PO SCH (21:41)
[2022-02-21 06:28] LABS: Glucose,Whole Blood 298 mg/dL (70-110)
[2022-02-21] MEDS: INSULIN ASPART (NovoLOG) 100 UNIT/ML VIAL SQ SCH ×4 (06:54→20:54)
[2022-02-21] MEDS: METOPROLOL TARTRATE 50 MG TAB PO SCH ×2 (08:47→20:53)
[2022-02-21] MEDS: TAMSULOSIN 0.4 MG CAP.ER.24H PO SCH (08:47)
[2022-02-21] MEDS: TORSEMIDE 20 MG TAB PO SCH (08:47)
[2022-02-21] MEDS: allopurinoL 100 MG TAB PO SCH ×2 (08:47→20:53)
[2022-02-21] MEDS: dexAMETHasone 2 MG TAB PO SCH (08:47)
[2022-02-21] MEDS: AZELASTINE 137MCG/SPRAY NASAL SCH ×2 (08:47→20:53)
[2022-02-21] MEDS: SODIUM BICARBONATE TAB 650 MG TAB PO SCH ×2 (08:47→20:54)
[2022-02-21] MEDS: ASPIRIN 81 MG PO SCH (08:47)
[2022-02-21] MEDS: amLODIPine 5 MG TAB PO SCH ×2 (08:47→20:54)
[2022-02-21] MEDS: MAGNESIUM OXIDE 400 MG TAB PO SCH (08:47)
--- NOTE | 2022-02-21 09:59 | P.PN ---
Subjective Progress Note Date: 02/21/22 This is a 76-year-old male seen in consultation because of acute kidney injury, he is dialysis dependent and is on dialysis Wednesday. The cause of his 80 is not clear. He will need to be biopsied unless his urine output and creatinine starts to show significant improvement over the next 24-48 hours Currently is comfortable denies any chest pain shortness of breath appetite is fair no nausea vomiting. He is able to walk around. 24-hour urine output has been documented at 1200 mL HPI: Patient is a 76-year-old male with history of coronary artery disease, hypertension, valvular heart disease, type 2 diabetes and CK D stage III with previous creatinine around 1.2 mg/dL in 2016 however we have a creatinine of 0.8 on 09/18/2021. Patient is admitted to the hospital with complaints of shortness of breath and increased weakness. Patient admitted to having had poor urine output for the last few days as outpatient. He denied use of any nonsteroidal anti-inflammatory agents. Blood pressure is not low No REJI inhibitor as noted on home med list. It is reported as an ALLERGY. Serum creatinine was 7.1 this morning. Chest x-ray shows pulmonary vascular congestion. Objective - Vital Signs Vital signs: Vital Signs Temp 97.4 F L 02/21/22 04:00 Pulse 66 02/21/22 04:00 Resp 15 02/21/22 04:00 BP 113/56 02/21/22 04:00 Pulse Ox 94 L 02/21/22 04:00 FiO2 50 02/14/22 00:12 Intake & Output 02/20/22 02/21/22 02/21/22 18:59 06:59 18:59 Intake Total 350 118 Output Total 3200 Balance -2850 118 Intake: IV 50 Oral 118 Hemodialysis 300 Output: Urine 1200 Uretheral (Hilario) 500 Hemodialysis 2000 Other: Voiding Method Indwelling Catheter Indwelling Catheter # Voids 1 Awake alert oriented HEENT exam no JVP neck is supple no facial asymmetry Lungs clear to auscultation good air entry bilaterally Heart sounds are grade 1-2 systolic ejection murmur Abdomen soft nontender Extremity exam was no edema Neurologically awake alert oriented - Labs CBC & Chem 7: 02/16/22 08:50 02/19/22 12:01 Labs: Abnormal Lab Results - Last 24 Hours (Table) 02/20/22 02/20/22 02/20/22 Range/Units 11:55 16:51 20:28 POC Glucose (mg/dL) 177 H 277 H 360 H (70-110) mg/dL 02/21/22 Range/Units 06:27 POC Glucose (mg/dL) 298 H (70-110) mg/dL Assessment and Plan Assessment: Assessment: 1. Acute kidney injury secondary to ATN with component of urinary retention. Etiology not determined , had: Positive test on 02/18/2022. No hydronephrosis noted on kidney ultrasound. Creatinine was 0.8 in August 2021. Creatinine was over 7 this admission. Rule out GN. Started on hemodialysis 02/14/2022. Permacath on the right side. Nonoliguric. Dialysis Wednesday 2. Metabolic acidosis secondary to acute kidney injury. Metformin held. Improved. 3. Anemia. Iron deficiency noted. Status post IV iron and completed 02/18/2022. On Aranesp. 4. Right kidney complex cystic lesion. Urology following. 5. Urinary retention. Has Hilario catheter. On Flomax. 6. Hypertension with chronic kidney disease. Stable. 7. Acute on chronic diastolic CHF with moderate aortic and mitral regurgitation. Cardiology following. 8. Diabetes mellitus. 9. Hyperphosphatemia secondary to acute kidney injury. Phosphorus 4.5 dated 02/17/2022. 10. Volume overload. Improved with diuresis and ultrafiltration. 11. Hypomagnesemia from diuresis. On oral magnesium oxide. Better. 12. COVID-19 infection. Plan: No changes in medication. Urine output is gone up may be recovering Will consider kidney biopsy outpatient once more stable medically. Monitor for renal recovery outpatient. Outpatient dialysis to be set up by case filler.
[2022-02-21 11:36] LABS: Glucose,Whole Blood 342 mg/dL (70-110)
--- NOTE | 2022-02-21 12:29 | P.PN ---
Subjective Progress Note Date: 02/21/22 Patient seen and examined. No complaints. Feeling better. No acute distress. Resting comfortably. Right neck access site clean and dry. No hematoma. Dressings of apparently clean and dry at this point, no evidence of oozing or bleeding. Groin is clean dry and intact. No hematoma End-stage renal disease, At this point no further intervention needed. Sites appear healthy and clean. If there is further mild drainage, change dressings appropriately. Otherwise okay to use for dialysis. Follow-up in the office in about 2 weeks. Objective - Vital Signs Vital signs: Vital Signs Temp 97.8 F 02/21/22 08:00 Pulse 68 02/21/22 08:00 Resp 16 02/21/22 08:00 BP 143/64 02/21/22 08:00 Pulse Ox 96 02/21/22 08:00 FiO2 50 02/14/22 00:12 Intake & Output 02/20/22 02/21/22 02/21/22 18:59 06:59 18:59 Intake Total 350 118 Output Total 3200 Balance -2850 118 Intake: IV 50 Oral 118 Hemodialysis 300 Output: Urine 1200 Uretheral (Hilario) 500 Hemodialysis 2000 Other: Voiding Method Indwelling Catheter Indwelling Catheter Indwelling Catheter # Voids 1 - Labs CBC & Chem 7: 02/16/22 08:50 02/19/22 12:01 Labs: Abnormal Lab Results - Last 24 Hours (Table) 02/20/22 02/20/22 02/21/22 Range/Units 16:51 20:28 06:27 POC Glucose (mg/dL) 277 H 360 H 298 H (70-110) mg/dL 02/21/22 Range/Units 11:35 POC Glucose (mg/dL) 342 H (70-110) mg/dL
[2022-02-21] MEDS: glipiZIDE 5 MG TAB PO SCH (12:47)
[2022-02-21] MEDS: APIXABAN 2.5 MG TABLET PO SCH ×2 (12:47→20:53)
[2022-02-21] MEDS: INSULIN DETEMIR (LEVEMIR) 100 UNIT/ML SYR SQ SCH (14:44)
--- NOTE | 2022-02-21 15:53 | P.PN ---
Subjective Progress Note Date: 02/21/22 On 02/21/2022, the patient resting comfortably in bed and he is currently on room air oxygen. He remains on Decadron and the dose was dropped down to 4 mg on a daily basis. He is undergoing hemodialysis per nephrology. The permacath was inserted. He remains on Demadex. The patient was initially going to be released home. Currently they're looking for ECF. The blood sugars elevated. The patient is currently on sliding scale insulin coverage. The patient is also on Levemir insulin started at 10 units and he is also on Decadron which is obviously raising the blood sugar. The patient Decadron dose was dropped off to 4 mg. Objective - Vital Signs Vital signs: Vital Signs Temp 97.8 F 02/21/22 08:00 Pulse 66 02/21/22 14:00 Resp 16 02/21/22 14:00 BP 127/67 02/21/22 12:00 Pulse Ox 93 L 02/21/22 12:00 FiO2 50 02/14/22 00:12 Intake & Output 02/20/22 02/21/22 02/21/22 18:59 06:59 18:59 Intake Total 350 236 Output Total 3200 Balance -2850 236 Intake: IV 50 Oral 236 Hemodialysis 300 Output: Urine 1200 Uretheral (Hilario) 500 Hemodialysis 2000 Other: Voiding Method Indwelling Catheter Indwelling Catheter Indwelling Catheter # Voids 1 - Exam GENERAL: The patient is alert and oriented x3, not in any acute distress. Well developed, well nourished. The patient is currently on room air oxygen HEENT: Pupils are round and equally reacting to light. EOMI. No scleral icterus. No conjunctival pallor. Normocephalic, atraumatic. No pharyngeal erythema. No thyromegaly. CARDIOVASCULAR: S1 and S2 present. No murmurs, rubs, or gallops. --PULMONARY: Chest is clear to auscultation, no wheezing , very mild bilateral basal crepitation ABDOMEN: Soft, nontender, nondistended, normoactive bowel sounds. No palpable organomegaly. MUSCULOSKELETAL: No joint swelling or deformity. EXTREMITIES: No cyanosis, clubbing, or pedal edema. NEUROLOGICAL: Gross neurological examination did not reveal any focal deficits. SKIN: No rashes. no petechiae. - Labs CBC & Chem 7: 02/16/22 08:50 02/19/22 12:01 Labs: Abnormal Lab Results - Last 24 Hours (Table) 02/20/22 02/20/22 02/21/22 Range/Units 16:51 20:28 06:27 POC Glucose (mg/dL) 277 H 360 H 298 H (70-110) mg/dL 02/21/22 Range/Units 11:35 POC Glucose (mg/dL) 342 H (70-110) mg/dL Assessment and Plan Plan: Acute hypoxic respiratory failure with signs of fluid overload at the time of admission, gradually improved and the patient started on hemodialysis on 02/14/2022 and the patient is currently on room air oxygen as the patient's occupation is improved. There may be also some contribution to Covid 19 related pneumonia although this can be very minimal. The patient has been infected with a rise in the past and the patient's vaccinated using a Bon [employer] Bon vaccine 1. No other manifestations to suggest ongoing Covid 19 infection. I believe the patient's acute hypoxic respiratory failure was essentially due to renal failure and fluid overload. No clear indication for an underlying pneumonia. Acute Covid 19 infection, previously vaccinated with a Bon & Bon vaccine and the patient has been infected in the presence of the same virus 2 Acute kidney injury. The patient had likely an ATN with a component of urinary retention, currently on hemodialysis on 02/14/2022 Diabetes mellitus type 2, with a component of steroid-induced hyperglycemia Chronic diastolic heart failure with evidence of moderate degree of aortic and mitral valve regurgitation Coronary artery disease with previous bypass surgery. Hypertension Hyperlipidemia Anemia of iron deficiency type and possibly a component of chronic kidney disease Urinary retention, currently on Flomax and the patient has a Hilario catheter in place Metabolic acidosis, improved Plan Patient is currently on room air oxygen and he has no signs of any respiratory distress. He has improved and oxygenation is also stabilized with ongoing hemodialysis and ultrafiltration. Dropped on the Decadron to 4 mg Tighter blood sugar control per medicine. Continue hemodialysis per nephrology Permacath in the right IJ was placed today Accession stable and the patient is currently on room air oxygen, improved Provide incentive spirometer, May consider kidney biopsy there is no convincing reason for his renal failure No nephrotoxic agents I was initially contemplating Decadron to complete a seven-day course or a prednisone burst taper at time of discharge. I'm reconsidering this I do not see these for any steroid treatments pressure the patient's oxygenation is improved considerably We'll continue to follow Looking for ECF placement
[2022-02-21 16:44] LABS: Glucose,Whole Blood 359 mg/dL (70-110)
--- NOTE | 2022-02-21 17:53 | P.PN ---
Progress Note - Text Progress Note Date: 02/21/22 Presenting complaint: Short of breath Hospital course: This is a pleasant 76 years old male with past medical history of diabetes mellitus, hypertension, benign prostatic hypertrophy, hyperlipidemia Patient states that she has been having dyspnea for the last 3 months getting progressively worse over the last 2 weeks till yesterday he could not bear it anymore sided decided to go to [facility]. Also has been having cough with some phlegm unknown color no chest pain. Patient is complaining of from diarrhea and vomiting for the last 3 days with no abdominal pain. Yesterday he has one bout of loose bowel movement with no blood and lytes in color and he vomited twice with no blood as well. Patient denies any dysuria or urgency. He has some dizziness but no headache or weakness or numbness. However patient feels generally weak. Denies smoking alcohol or illicit tracts. It is not on home oxygen. 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 Martin Patient was transferred from [facility] for dyspnea. Vitals currently showing stable blood pressure 153/95. Patient is saturating 97% on BiPAP. Prior to that he was saturating 91-93% on 6 L oxygen via nasal cannula and he was tachypneic Labs here show an unremarkable CBC except for anemia with hemoglobin 8.5. High lactic acid came back to normal Urine analysis showing 2+ protein. Troponin is elevated at 0.19 [place] 57217 creatinine is elevated 7.1. 5 months ago creatinine was normal 0.8. Potassium currently normal formed 0.3 as well as sodium 139. Liver enzymes not significantly elevated. Chest x-ray:Opacity projecting the heart and more posteriorly correlate for pneumonia. A component of pulmonary vascular congestion may also be present. Correlate for CHF EKG showing atrial fibrillation's with controlled rate at 88, mild ST depression in V4 and V5 no other significant ST-T changes 02/16/2022: I assumed care of the patient today from [facility] hospitalist. Patient seen this morning. reclining in bed.. Short of breath. Eating fair. On 6 L nasal cannula. Patient was started on hemodialysis on February 14. Yesterday patient went into atrial flutter with a controlled rate. Back and assessment. 02/17/2022: Awake short of breath. Remains on 5 L nasal cannula. Oral intake fair. A bit tired. We'll have the patient sit up in a chair. Yesterday patient had hemodialysis catheter was replaced as it was malfunctioning. 02/18/2022: Hemodialysis today. FiO2 dropped to 3 L. 92%. Oral intake fair. PermCath placement scheduled for Wednesday. Atrial flutter rate controlled 02/19/2022: Resting in bed. For PermCath placement tomorrow. Oral intake good. Patient's come back positive for COVID 19. 02/20/2022: New PermCath placed in the right upper chest by Dr. Taryn Hilario from yesterday. Getting dialyzed today. Some blood oozing from the dialysis catheter site. Spoke to Dr. Hilario. For pressure dressing. Spoke to the window caser this morning. Per PT OT patient was stable to go home. At the patient review again by PT OT this afternoon. On second assessment if felt patient should go to rehab. Because of COVID places limited. Breathing better. Oral intake fair. I called patient's this evening given an update. Case manag ement will reassess on Wednesday. About rehab placement. 02/21/2022: Comfortable. Oral intake fair. Started on eliquis. Awaiting rehab placement. Cutback dexamethasone to 4 mg. Active Medications Hydrocodone Bitart/Acetaminophen (Hydrocodone/Apap 5-325mg 1 Each Tab) 1 each PO BID PRN PRN Reason: Pain Allopurinol (Allopurinol 100 Mg Tab) 100 mg PO BID [facility] Last Admin: 02/21/22 08:47 Dose: 100 mg Alprazolam (Alprazolam 0.25 Mg Tab) 0.25 mg PO TID PRN PRN Reason: Anxiety Last Admin: 02/16/22 08:23 Dose: 0.25 mg Amlodipine Besylate (Amlodipine 5 Mg Tab) 5 mg PO BID [facility] Last Admin: 02/21/22 08:47 Dose: 5 mg Apixaban (Apixaban 2.5 Mg Tablet) 2.5 mg PO BID [facility]; Protocol Last Admin: 02/21/22 12:47 Dose: 2.5 mg Aspirin (Aspirin 81 Mg) 81 mg PO DAILY [facility] Last Admin: 02/21/22 08:47 Dose: 81 mg Azelastine HCl (Azelastine 137mcg/[place]) 2 spray NASAL BID [facility] Last Admin: 02/21/22 08:47 Dose: 2 spray Darbepoetin Louis (Darbepoetin Louis 40 Mcg/0.4 Ml Syringe) 40 mcg SQ Q7D [facility] Last Admin: 02/19/22 11:25 Dose: 40 mcg Dexamethasone (Dexamethasone 4 Mg Tab) 4 mg PO DAILY [facility] Famotidine (Famotidine 20 Mg Tab) 20 mg PO [facility] Last Admin: 02/20/22 21:41 Dose: 20 mg Glipizide (Glipizide 5 Mg Tab) 5 mg PO -BRKFST [facility] Last Admin: 02/21/22 12:47 Dose: 5 mg Insulin Aspart (Insulin Aspart (Novolog) 100 Unit/Ml Vial) 0 unit SQ [facility]; Protocol Last Admin: 02/21/22 16:52 Dose: 5 unit Insulin Detemir (Insulin Detemir (Levemir) 100 Unit/Ml Syr) 10 unit SQ DAILY@0700 [facility] Last Admin: 02/21/22 14:44 Dose: 10 unit Magnesium Oxide (Magnesium Oxide 400 Mg Tab) 400 mg PO DAILY [facility] Last Admin: 02/21/22 08:47 Dose: 400 mg Meclizine HCl (Meclizine 25 Mg Tab) 25 mg PO DAILY PRN PRN Reason: Vertigo Metoprolol Tartrate (Metoprolol Tartrate 50 Mg Tab) 50 mg PO BID [facility] Last Admin: 02/21/22 08:47 Dose: 50 mg Naloxone HCl (Naloxone 0.4 Mg/Ml 1 Ml Vial) 0.2 mg IV Q2M PRN PRN Reason: Opioid Reversal Pravastatin Sodium (Pravastatin Sodium 40 Mg Tab) 40 mg PO [facility] Last Admin: 02/20/22 21:41 Dose: 40 mg Sodium Bicarbonate (Sodium Bicarbonate Tab 650 Mg Tab) 650 mg PO BID [facility] Last Admin: 02/21/22 08:47 Dose: 650 mg Tamsulosin HCl (Tamsulosin 0.4 Mg Cap.Er.24h) 0.4 mg PO [facility] Last Admin: 02/21/22 08:47 Dose: 0.4 mg Torsemide (Torsemide 20 Mg Tab) 40 mg PO DAILY [facility] Last Admin: 02/21/22 08:47 Dose: 40 mg On examination: VITAL SIGNS: 97.8, 68, 16, 143/64, 96% room air GENERAL APPEARANCE: Reclining in bed, comfortable, Right upper chest wall PermCath Pressure dressing. HEENT: Normal external appearance of nose and ear. Oral cavity normal EYES: Pupils equal. Conjunctiva normal. NECK: JVD not raised. Mass not palpable. RESPIRATORY: Respiratory effort increased. Lungs decreased breath sounds CARDIOVASCULAR: Heart sounds irregular. No edema. ABDOMEN: Soft. Liver and spleen not palpable. No tenderness. No mass palpable. PSYCHIATRY: Alert and oriented x3. Mood and affect normal. INVESTIGATIONS, reviewed in the clinical context: 02/20/2022: White count 15.6 hemoglobin 7.7 platelets with 75 potassium 3.9 creatinine 0.75 02/19/2022: Potassium 4.7 creatinine 4.9 to COVID 19 PCR: Detected 02/18/2022: Potassium 4.1 BUN 70 creatinine 5.77 02/17/2022: Potassium 4 BUN 52 creatinine 4.47 Chest x-ray film personally reviewed by me-[February 16] cardiomegaly White count 5.5 globin 9.1 platelets 2214.1 BUN 78 creatinine 6.93 TSH 1.1 Hepatitis B core total antibody: Nonreactive Previous studies: 2-D echocardiogram [June 2021]: EF 55%, moderate aortic regurgitation, moderate MR, moderate TR. Nuclear stress test June 2021: Negative Assessment and plan: -Acute kidney injury secondary to ATN with component of urinary retention. Ultrasound unremarkable. Started on hemodialysis 02/14/2022. Being followed by nephrology. For outpatient renal biopsy. PermCath placed by Dr. Taryn Hilario on February 20. -Acute hypoxic respiratory failure from CHF: : Improving On 2 L nasal cannula. -COVID 19 pneumonitis dexamethasone -Possible pneumonia, suspect gram-negative organism: Improved IV ceftriaxone,'s completed 7 days.. Previously pro-calcitonin was elevated. Chest x-ray showed some infiltrate. -CAD with a prior history of coronary bypass -Moderate aortic regurgitation, moderate MR, moderate TR followed by cardiology -Metabolic acidosis due to acute kidney injury Oral bicarbonate. Getting dialysis. -Iron deficiency anemia IV ferrous gluconate. -Paroxysmal atrial flutter fibrillation, currently sinus rhythm Metoprolol. Eliquis. Follow-up with Dr. Kelly Cortés outpatient -Right kidney complex cystic lesion. Being followed by urology -Acute bladder outflow obstruction secondary to enlarged prostate . Hilario catheter. Flomax -Hypertension with chronic kidney disease -Acute on chronic diastolic CHF from EF 55% Hemodialysis -Hyperphosphatemia secondary to acute kidney injury Continue dialysis -Full code Contact dexamethasone to 4 mg day. Other medications to continue. Pending rehab on Wednesday.
[2022-02-21 20:17] LABS: Glucose,Whole Blood 290 mg/dL (70-110)
[2022-02-21] MEDS: PRAVASTATIN SODIUM 40 MG TAB PO SCH (20:53)
[2022-02-21] MEDS: FAMOTIDINE 20 MG TAB PO SCH (20:53)
[2022-02-22 06:26] LABS: Glucose,Whole Blood 99 mg/dL (70-110)
[2022-02-22] MEDS: INSULIN ASPART (NovoLOG) 100 UNIT/ML VIAL SQ SCH ×4 (06:26→21:19)
[2022-02-22 06:30] LABS: Glucose,Whole Blood 102 mg/dL (70-110)
[2022-02-22] MEDS: glipiZIDE 5 MG TAB PO SCH (06:32)
[2022-02-22] MEDS: INSULIN DETEMIR (LEVEMIR) 100 UNIT/ML SYR SQ SCH (06:32)
[2022-02-22] MEDS: MAGNESIUM OXIDE 400 MG TAB PO SCH (09:08)
[2022-02-22] MEDS: ASPIRIN 81 MG PO SCH (09:08)
[2022-02-22] MEDS: TAMSULOSIN 0.4 MG CAP.ER.24H PO SCH (09:08)
[2022-02-22] MEDS: allopurinoL 100 MG TAB PO SCH ×2 (09:08→21:19)
[2022-02-22] MEDS: dexAMETHasone 4 MG TAB PO SCH (09:08)
[2022-02-22] MEDS: APIXABAN 2.5 MG TABLET PO SCH ×2 (09:08→21:19)
[2022-02-22] MEDS: amLODIPine 5 MG TAB PO SCH ×2 (09:08→21:19)
[2022-02-22] MEDS: SODIUM BICARBONATE TAB 650 MG TAB PO SCH ×2 (09:08→21:19)
[2022-02-22] MEDS: AZELASTINE 137MCG/SPRAY NASAL SCH ×2 (09:09→21:20)
[2022-02-22] MEDS: METOPROLOL TARTRATE 50 MG TAB PO SCH ×2 (09:09→21:19)
[2022-02-22] MEDS: TORSEMIDE 20 MG TAB PO SCH (09:09)
--- NOTE | 2022-02-22 09:45 | P.PN ---
Subjective Progress Note Date: 02/22/22 This is a 76-year-old male seen in consultation because of acute kidney injury, he is dialysis dependent and is on dialysis Wednesday. The cause of his ATN is not clear he does have COVID 19 positive but chest x-ray is unremarkable. He will need to be biopsied unless his urine output and cr eatinine starts to show significant improvement over the next 24-48 hours Currently is comfortable denies any chest pain shortness of breath appetite is fair no nausea vomiting. He is able to walk around. 24-hour urine output has been documented at 400 mL, he says he is making a lot more urine HPI: Patient is a 76-year-old male with history of coronary artery disease, hypertension, valvular heart disease, type 2 diabetes and CK D stage III with previous creatinine around 1.2 mg/dL in 2015 however we have a creatinine of 0.8 on 09/18/2021. Patient is admitted to the hospital with complaints of shortness of breath and increased weakness. Patient admitted to having had poor urine output for the last few days as outpatient. He denied use of any nonsteroidal anti-inflammatory agents. Blood pressure is not low No REJI inhibitor as noted on home med list. It is reported as an ALLERGY. Serum creatinine was 7.1 this morning. Chest x-ray shows pulmonary vascular congestion. Objective - Vital Signs Vital signs: Vital Signs Temp 96.3 F L 02/22/22 09:11 Pulse 65 02/22/22 09:12 Resp 16 02/22/22 09:12 BP 137/64 02/22/22 09:11 Pulse Ox 95 02/22/22 09:11 FiO2 50 02/14/22 00:12 Intake & Output 02/21/22 02/22/22 02/22/22 18:59 06:59 18:59 Intake Total 354 118 Output Total 400 375 Balance 354 -400 -257 Intake: Oral 354 118 Output: Urine 400 375 Uretheral (Hilario) 200 375 Other: Voiding Method Indwelling Catheter Indwelling Catheter Indwelling Catheter Awake alert oriented comfortable No JVP neck is supple no facial asymmetry Lungs clear to auscultation good air entry bilaterally Heart sounds unremarkable no murmur rub gallop Abdomen soft nontender Extremity exam was no edema Neurologically awake alert oriented - Labs CBC & Chem 7: 02/16/22 08:50 02/19/22 12:01 Labs: Abnormal Lab Results - Last 24 Hours (Table) 02/21/22 02/21/22 02/21/22 Range/Units 11:35 16:42 20:16 POC Glucose (mg/dL) 342 H 359 H 290 H (70-110) mg/dL Assessment and Plan Assessment: Assessment: 1. Acute kidney injury secondary to ATN with component of urinary retention. Etiology not determined , had: COVID Positive test on 02/18/2022. No hydronephrosis noted on kidney ultrasound. Creatinine was 0.8 in August 2021. Creatinine was over 7 this admission. Rule out GN. Started on hemodialysis 02/14/2022. Permacath on the right side. Nonoliguric. Dialysis Wednesday 2. Metabolic acidosis secondary to acute kidney injury. Metformin held. Improved. 3. Anemia. Iron deficiency noted. Status post IV iron and completed 02/18/2022. On Aranesp. 4. Right kidney complex cystic lesion. Urology following. 5. Urinary retention. Has Hilario catheter. On Flomax. 6. Hypertension with chronic kidney disease. Stable. 7. Acute on chronic diastolic CHF with moderate aortic and mitral regurgitation. Cardiology following. 8. Diabetes mellitus. 9. Hyperphosphatemia secondary to acute kidney injury. Phosphorus 4.5 dated 02/17/2022. 10. Volume overload. Improved with diuresis and ultrafiltration. 11. Hypomagnesemia from diuresis. On oral magnesium oxide. Better. 12. COVID-19 infection. Plan: No changes in medication. Possible dialysis tomorrow based on urine output and creatinine Urine output is gone up may be recovering Will consider kidney biopsy outpatient once more stable medically. Monitor for renal recovery outpatient. Outpatient dialysis to be set up by rn field case manager.
[2022-02-22 11:12] LABS: Calcium 8.5 mg/dL (8.4-10.2); Potassium 4.6 mmol/L (3.5-5.1)
[2022-02-22 11:46] LABS: Glucose,Whole Blood 80 mg/dL (70-110)
[2022-02-22 16:50] LABS: Glucose,Whole Blood 222 mg/dL (70-110)
--- NOTE | 2022-02-22 18:32 | P.PN ---
Progress Note - Text Progress Note Date: 02/22/22 Presenting complaint: Short of breath Hospital course: This is a pleasant 76 years old male with past medical history of diabetes mellitus, hypertension, benign prostatic hypertrophy, hyperlipidemia Patient states that she has been having dyspnea for the last 3 months getting progressively worse over the last 2 weeks till yesterday he could not bear it anymore sided decided to go to [facility]. Also has been having cough with some phlegm unknown color no chest pain. Patient is complaining of from diarrhea and vomiting for the last 3 days with no abdominal pain. Yesterday he has one bout of loose bowel movement with no blood and lytes in color and he vomited twice with no blood as well. Patient denies any dysuria or urgency. He has some dizziness but no headache or weakness or numbness. However patient feels generally weak. Denies smoking alcohol or illicit tracts. It is not on home oxygen. 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 Martin Patient was transferred from [facility] for dyspnea. Vitals currently showing stable blood pressure 153/95. Patient is saturating 97% on BiPAP. Prior to that he was saturating 91-93% on 6 L oxygen via nasal cannula and he was tachypneic Labs here show an unremarkable CBC except for anemia with hemoglobin 8.5. High lactic acid came back to normal Urine analysis showing 2+ protein. Troponin is elevated at 0.19 [place] 41262 creatinine is elevated 7.1. 5 months ago creatinine was normal 0.8. Potassium currently normal formed 0.3 as well as sodium 139. Liver enzymes not significantly elevated. Chest x-ray:Opacity projecting the heart and more posteriorly correlate for pneumonia. A component of pulmonary vascular congestion may also be present. Correlate for CHF EKG showing atrial fibrillation's with controlled rate at 88, mild ST depression in V4 and V5 no other significant ST-T changes 02/16/2022: I assumed care of the patient today from [facility] hospitalist. Patient seen this morning. reclining in bed.. Short of breath. Eating fair. On 6 L nasal cannula. Patient was started on hemodialysis on February 14. Yesterday patient went into atrial flutter with a controlled rate. Back and assessment. 02/17/2022: Awake short of breath. Remains on 5 L nasal cannula. Oral intake fair. A bit tired. We'll have the patient sit up in a chair. Yesterday patient had hemodialysis catheter was replaced as it was malfunctioning. 02/18/2022: Hemodialysis today. FiO2 dropped to 3 L. 92%. Oral intake fair. PermCath placement scheduled for Wednesday. Atrial flutter rate controlled 02/19/2022: Resting in bed. For PermCath placement tomorrow. Oral intake good. Patient's come back positive for COVID 19. 02/20/2022: New PermCath placed in the right upper chest by Dr. Taryn Hilario from yesterday. Getting dialyzed today. Some blood oozing from the dialysis catheter site. Spoke to Dr. Hilario. For pressure dressing. Spoke to the casework manager this morning. Per PT OT patient was stable to go home. At the patient review again by PT OT this afternoon. On second assessment if felt patient should go to rehab. Because of COVID places limited. Breathing better. Oral intake fair. I called patient's this evening given an update. Case manag ement will reassess on Wednesday. About rehab placement. 02/21/2022: Comfortable. Oral intake fair. Started on eliquis. Awaiting rehab placement. Cutback dexamethasone to 4 mg. 02/22/2022: Eating well. Pulse ox 95% on room air. Probable dialysis tomorrow. Looking for rehab placement tomorrow. Making urine. Active Medications Hydrocodone Bitart/Acetaminophen (Hydrocodone/Apap 5-325mg 1 Each Tab) 1 each PO BID PRN PRN Reason: Pain Allopurinol (Allopurinol 100 Mg Tab) 100 mg PO BID [facility] Last Admin: 02/22/22 09:08 Dose: 100 mg Alprazolam (Alprazolam 0.25 Mg Tab) 0.25 mg PO TID PRN PRN Reason: Anxiety Last Admin: 02/16/22 08:23 Dose: 0.25 mg Amlodipine Besylate (Amlodipine 5 Mg Tab) 5 mg PO BID [facility] Last Admin: 02/22/22 09:08 Dose: 5 mg Apixaban (Apixaban 2.5 Mg Tablet) 2.5 mg PO BID [facility]; Protocol Last Admin: 02/22/22 09:08 Dose: 2.5 mg Aspirin (Aspirin 81 Mg) 81 mg PO DAILY [facility] Last Admin: 02/22/22 09:08 Dose: 81 mg Azelastine HCl (Azelastine 137mcg/[place]) 2 spray NASAL BID [facility] Last Admin: 02/22/22 09:09 Dose: 2 spray Darbepoetin Louis (Darbepoetin Louis 40 Mcg/0.4 Ml Syringe) 40 mcg SQ Q7D [facility] Last Admin: 02/19/22 11:25 Dose: 40 mcg Dexamethasone (Dexamethasone 4 Mg Tab) 4 mg PO DAILY [facility] Last Admin: 02/22/22 09:08 Dose: 4 mg Famotidine (Famotidine 20 Mg Tab) 20 mg PO [facility] Last Admin: 02/21/22 20:53 Dose: 20 mg Glipizide (Glipizide 5 Mg Tab) 5 mg PO AC-BRKT [facility] Last Admin: 02/22/22 06:32 Dose: 5 mg Insulin Aspart (Insulin Aspart (Novolog) 100 Unit/Ml Vial) 0 unit SQ [facility]; Protocol Last Admin: 02/22/22 17:17 Dose: 2 unit Insulin Detemir (Insulin Detemir (Levemir) 100 Unit/Ml Syr) 10 unit SQ DAILY@0700 [facility] Last Admin: 02/22/22 06:32 Dose: 10 unit Magnesium Oxide (Magnesium Oxide 400 Mg Tab) 400 mg PO DAILY [facility] Last Admin: 02/22/22 09:08 Dose: 400 mg Meclizine HCl (Meclizine 25 Mg Tab) 25 mg PO DAILY PRN PRN Reason: Vertigo Metoprolol Tartrate (Metoprolol Tartrate 50 Mg Tab) 50 mg PO BID [facility] Last Admin: 02/22/22 09:09 Dose: 50 mg Naloxone HCl (Naloxone 0.4 Mg/Ml 1 Ml Vial) 0.2 mg IV Q2M PRN PRN Reason: Opioid Reversal Pravastatin Sodium (Pravastatin Sodium 40 Mg Tab) 40 mg PO [facility] Last Admin: 02/21/22 20:53 Dose: 40 mg Sodium Bicarbonate (Sodium Bicarbonate Tab 650 Mg Tab) 650 mg PO BID [facility] Last Admin: 02/22/22 09:08 Dose: 650 mg Tamsulosin HCl (Tamsulosin 0.4 Mg Cap.Er.24h) 0.4 mg PO -BRKFST [facility] Last Admin: 02/22/22 09:08 Dose: 0.4 mg Torsemide (Torsemide 20 Mg Tab) 40 mg PO DAILY [facility] Last Admin: 02/22/22 09:09 Dose: 40 mg On examination: VITAL SIGNS: 96.3, 60, 16, 143/62, 95% room air GENERAL APPEARANCE: Reclining in bed, comfortable, Right upper chest wall PermCath Pressure dressing. HEENT: Normal external appearance of nose and ear. Oral cavity normal EYES: Pupils equal. Conjunctiva normal. NECK: JVD not raised. Mass not palpable. RESPIRATORY: Respiratory effort normal Lungs decreased breath sounds CARDIOVASCULAR: Heart sounds irregular. No edema. ABDOMEN: Soft. Liver and spleen not palpable. No tenderness. No mass palpable. PSYCHIATRY: Alert and oriented x3. Mood and affect normal. INVESTIGATIONS, reviewed in the clinical context: 02/22/2022: Potassium 4.6 BUN 84 creatinine 5.35 02/20/2022: White count 15.6 hemoglobin 7.7 platelets with 75 potassium 3.9 creatinine 0.75 02/19/2022: Potassium 4.7 creatinine 4.9 to COVID 19 PCR: Detected 02/18/2022: Potassium 4.1 BUN 70 creatinine 5.77 02/17/2022: Potassium 4 BUN 52 creatinine 4.47 Chest x-ray film personally reviewed by tn-[February 16] cardiomegaly White count 5.5 globin 9.1 platelets 2214.1 BUN 78 creatinine 6.93 TSH 1.1 Hepatitis B core total antibody: Nonreactive Previous studies: 2-D echocardiogram [June 2021]: EF 55%, moderate aortic regurgitation, moderate MR, moderate TR. Nuclear stress test June 2021: Negative Assessment and plan: -Acute kidney injury secondary to ATN with component of urinary retention. Ultrasound unremarkable. Started on hemodialysis 02/14/2022. Being followed by nephrology. For outpatient renal biopsy. PermCath placed by Dr. Taryn Hilario on February 20. -Acute hypoxic respiratory failure from CHF: : Corrected On room air -COVID 19 pneumonitis dexamethasone taper -Possible pneumonia, suspect gram-negative organism: Improved IV ceftriaxone,'s completed 7 days.. Previously pro-calcitonin was elevated. Chest x-ray showed some infiltrate. -CAD with a prior history of coronary bypass -Moderate aortic regurgitation, moderate MR, moderate TR followed by cardiology -Metabolic acidosis due to acute kidney injury Oral bicarbonate. Getting dialysis. -Diabetes mellitus type 2 on oral hypoglycemic, with hyperglycemia from steroids Glyburide 5 mg daily. Stop Levemir Follow Accu-Cheks -Iron deficiency anemia Received IV ferrous gluconate. -Paroxysmal atrial flutter fibrillation, currently sinus rhythm Metoprolol. Eliquis. Follow-up with Dr. Kelly Cortés outpatient -Right kidney complex cystic lesion. Being followed by urology -Acute bladder outflow obstruction secondary to enlarged prostate . Hilario catheter. Flomax -Hypertension with chronic kidney disease -Acute on chronic diastolic CHF from EF 55% Hemodialysis -Hyperphosphatemia secondary to acute kidney injury Continue dialysis -Full code dexamethasone to 4 mg day. Other medications to continue. Possible dialysis tomorrow. Stop Levemir. Patient is off oxygen. Pending rehab on Wednesday.
[2022-02-22 18:59] LABS: Glucose,Whole Blood 279 mg/dL (70-110)
[2022-02-22 21:16] LABS: Glucose,Whole Blood 320 mg/dL (70-110)
[2022-02-22] MEDS: FAMOTIDINE 20 MG TAB PO SCH (21:19)
[2022-02-22] MEDS: PRAVASTATIN SODIUM 40 MG TAB PO SCH (21:19)
[2022-02-23 06:15] LABS: Glucose,Whole Blood 167 mg/dL (70-110)
[2022-02-23] MEDS: glipiZIDE 5 MG TAB PO SCH (06:38)
[2022-02-23] MEDS: INSULIN ASPART (NovoLOG) 100 UNIT/ML VIAL SQ SCH ×4 (06:38→21:38)
[2022-02-23] MEDS: dexAMETHasone 4 MG TAB PO SCH (09:33)
[2022-02-23] MEDS: TORSEMIDE 20 MG TAB PO SCH (09:33)
[2022-02-23 09:34] LABS: African American GFR (CKD) 9 (>60 ml/min/1.73 sqM); Anion Gap 13 mmol/L; Calcium 8.4 mg/dL (8.4-10.2); Carbon Dioxide 26 mmol/L (22-30); Chloride 95 mmol/L (98-107); Glucose 116 mg/dL (74-99); Non-African American GFR(CKD) 8 (>60 ml/min/1.73 sqM); Potassium 4.1 mmol/L (3.5-5.1); Sodium 134 mmol/L (137-145)
[2022-02-23] MEDS: amLODIPine 5 MG TAB PO SCH ×2 (09:34→21:37)
[2022-02-23] MEDS: SODIUM BICARBONATE TAB 650 MG TAB PO SCH ×2 (09:34→21:37)
[2022-02-23] MEDS: APIXABAN 2.5 MG TABLET PO SCH ×2 (09:34→21:37)
[2022-02-23] MEDS: MAGNESIUM OXIDE 400 MG TAB PO SCH (09:34)
[2022-02-23] MEDS: METOPROLOL TARTRATE 50 MG TAB PO SCH ×2 (09:34→21:37)
[2022-02-23] MEDS: ASPIRIN 81 MG PO SCH (09:34)
[2022-02-23] MEDS: TAMSULOSIN 0.4 MG CAP.ER.24H PO SCH (09:34)
[2022-02-23] MEDS: allopurinoL 100 MG TAB PO SCH ×2 (09:34→21:38)
[2022-02-23] MEDS: AZELASTINE 137MCG/SPRAY NASAL SCH ×2 (09:34→21:39)
[2022-02-23 09:37] LABS: Blood Urea Nitrogen 104 mg/dL (9-20)
[2022-02-23 11:52] LABS: Glucose,Whole Blood 106 mg/dL (70-110)
--- NOTE | 2022-02-23 12:27 | P.PN ---
Subjective Patient is seen for follow-up for acute kidney injury currently hemodialysis dependent. Patient is currently seen on hemodialysis. He will need to have a kidney biopsy performed as outpatient as he remains dialysis dependent. Previous creatinine was 0.8 on 09/18/2021. Objective - Vital Signs Vital signs: Vital Signs Temp 97.8 F 02/23/22 11:56 Pulse 67 02/23/22 11:56 Resp 19 02/23/22 11:56 BP 141/69 02/23/22 11:56 Pulse Ox 94 L 02/23/22 01:47 FiO2 21 02/22/22 19:45 Intake & Output 02/22/22 02/23/22 02/23/22 18:59 06:59 18:59 Intake Total 236 300 Output Total 735 1080 Balance -499 -780 Weight 63 kg Intake: Oral 236 Hemodialysis 300 Output: Urine 735 Uretheral (Hilario) 375 Hemodialysis 1080 Other: Voiding Method Indwelling Catheter Indwelling Catheter Indwelling Catheter - Exam Awake, comfortable, no acute distress Examination of the heart S1 and S2 Examination lungs bilateral breath sounds are heard Abdomen is soft nontender Examination lower extremity shows no significant edema extends [employer]ER exam grossly intact - Labs CBC & Chem 7: 02/16/22 08:50 02/23/22 08:00 Labs: Abnormal Lab Results - Last 24 Hours (Table) 02/22/22 02/22/22 02/22/22 Range/Units 16:49 18:58 21:14 Sodium (137-145) mmol/L Chloride (98-107) mmol/L BUN (9-20) mg/dL Creatinine (0.66-1.25) mg/dL Glucose (74-99) mg/dL POC Glucose (mg/dL) 222 H 279 H 320 H (70-110) mg/dL 02/23/22 02/23/22 Range/Units 06:13 08:00 Sodium 134 L (137-145) mmol/L Chloride 95 L (98-107) mmol/L BUN 104 H* (9-20) mg/dL Creatinine 6.39 H (0.66-1.25) mg/dL Glucose 116 H (74-99) mg/dL POC Glucose (mg/dL) 167 H (70-110) mg/dL Assessment and Plan Assessment: 1. Acute kidney injury secondary to ATN with component of urinary retention. Etiology not determined , had: COVID Positive test on 02/18/2022. No hydronephrosis noted on kidney ultrasound. Creatinine was 0.8 in August 2021. Creatinine was over 7 this admission. Rule out GN. Started on hemodialysis 02/14/2022. Permacath on the right side. Nonoliguric. Dialysis Wednesday. Patient will need kidney biopsy as outpatient 2. Metabolic acidosis secondary to acute kidney injury. Metformin held. Imp roved. 3. Anemia. Iron deficiency noted. Status post IV iron and completed 02/18/2022. On Aranesp. 4. Right kidney complex cystic lesion. Urology following. 5. Urinary retention. Has Hilario catheter. On Flomax. 6. Hypertension with chronic kidney disease. Stable. 7. Acute on chronic diastolic CHF with moderate aortic and mitral regurgitation. Cardiology following. 8. Diabetes mellitus. 9. Hyperphosphatemia secondary to acute kidney injury. Phosphorus 4.5 dated 02/17/2022. 10. Volume overload. Improved with diuresis and ultrafiltration. 11. Hypomagnesemia from diuresis. On oral magnesium oxide. Better. 12. COVID-19 infection. Plan: Continue with hemodialysis Kidney biopsy as outpatient Need to set up chair time for dialysis as outpatient
--- NOTE | 2022-02-23 16:34 | P.PN ---
Progress Note - Text Progress Note Date: 02/23/22 Presenting complaint: Short of breath Hospital course: This is a pleasant 76 years old male with past medical history of diabetes mellitus, hypertension, benign prostatic hypertrophy, hyperlipidemia Patient states that she has been having dyspnea for the last 3 months getting progressively worse over the last 2 weeks till yesterday he could not bear it anymore sided decided to go to [facility]. Also has been having cough with some phlegm unknown color no chest pain. Patient is complaining of from diarrhea and vomiting for the last 3 days with no abdominal pain. Yesterday he has one bout of loose bowel movement with no blood and lytes in color and he vomited twice with no blood as well. Patient denies any dysuria or urgency. He has some dizziness but no headache or weakness or numbness. However patient feels generally weak. Denies smoking alcohol or illicit tracts. It is not on home oxygen. 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 Cortés and urologist is Dr. Martin Patient was transferred from [facility] for dyspnea. Vitals currently showing stable blood pressure 153/95. Patient is saturating 97% on BiPAP. Prior to that he was saturating 91-93% on 6 L oxygen via nasal cannula and he was tachypneic Labs here show an unremarkable CBC except for anemia with hemoglobin 8.5. High lactic acid came back to normal Urine analysis showing 2+ protein. Troponin is elevated at 0.19 [place] [address] creatinine is elevated 7.1. 5 months ago creatinine was normal 0.8. Potassium currently normal formed 0.3 as well as sodium 139. Liver enzymes not significantly elevated. Chest x-ray:Opacity projecting the heart and more posteriorly correlate for pneumonia. A component of pulmonary vascular congestion may also be present. Correlate for CHF EKG showing atrial fibrillation's with controlled rate at 88, mild ST depression in V4 and V5 no other significant ST-T changes 02/16/2022: I assumed care of the patient today from [facility] hospitalist. Patient seen this morning. reclining in bed.. Short of breath. Eating fair. On 6 L nasal cannula. Patient was started on hemodialysis on February 14. Yesterday patient went into atrial flutter with a controlled rate. Back and assessment. 02/17/2022: Awake short of breath. Remains on 5 L nasal cannula. Oral intake fair. A bit tired. We'll have the patient sit up in a chair. Yesterday patient had hemodialysis catheter was replaced as it was malfunctioning. 02/18/2022: Hemodialysis today. FiO2 dropped to 3 L. 92%. Oral intake fair. PermCath placement scheduled for Wednesday. Atrial flutter rate controlled 02/19/2022: Resting in bed. For PermCath placement tomorrow. Oral intake good. Patient's come back positive for COVID 19. 02/20/2022: New PermCath placed in the right upper chest by Dr. Taryn Hilario from yesterday. Getting dialyzed today. Some blood oozing from the dialysis catheter site. Spoke to Dr. Hilario. For pressure dressing. Spoke to the [employer] [employer] this morning. Per PT OT patient was stable to go home. At the patient review again by PT OT this afternoon. On second assessment if felt patient should go to rehab. Because of COVID places limited. Breathing better. Oral intake fair. I called patient's this evening given an update. Case manag ement will reassess on Wednesday. About rehab placement. 02/21/2022: Comfortable. Oral intake fair. Started on eliquis. Awaiting rehab placement. Cutback dexamethasone to 4 mg. 02/22/2022: Eating well. Pulse ox 95% on room air. Probable dialysis tomorrow. Looking for rehab placement tomorrow. Making urine. 02/23/2022: Dialysis today. Protocol from [employer]. We'll go to rehab tomorrow. Oral intake fair. Cutback neck symptoms under 2 mg daily. Active Medications Hydrocodone Bitart/Acetaminophen (Hydrocodone/Apap 5-325mg 1 Each Tab) 1 each PO BID PRN PRN Reason: Pain Allopurinol (Allopurinol 100 Mg Tab) 100 mg PO BID [facility] Last Admin: 02/23/22 09:34 Dose: 100 mg Alprazolam (Alprazolam 0.25 Mg Tab) 0.25 mg PO TID PRN PRN Reason: Anxiety Last Admin: 02/16/22 08:23 Dose: 0.25 mg Amlodipine Besylate (Amlodipine 5 Mg Tab) 5 mg PO BID JUMA Last Admin: 02/23/22 09:34 Dose: 5 mg Apixaban (Apixaban 2.5 Mg Tablet) 2.5 mg PO BID [facility]; Protocol Last Admin: 02/23/22 09:34 Dose: 2.5 mg Aspirin (Aspirin 81 Mg) 81 mg PO DAILY [facility] Last Admin: 02/23/22 09:34 Dose: 81 mg Azelastine HCl (Azelastine 137mcg/[place]) 2 spray NASAL BID [facility] Last Admin: 02/23/22 09:34 Dose: Not Given Darbepoetin Louis (Darbepoetin Louis 40 Mcg/0.4 Ml Syringe) 40 mcg SQ Q7D [facility] Last Admin: 02/19/22 11:25 Dose: 40 mcg Dexamethasone (Dexamethasone 2 Mg Tab) 2 mg PO DAILY [facility] Famotidine (Famotidine 20 Mg Tab) 20 mg PO HS [facility] Last Admin: 02/22/22 21:19 Dose: 20 mg Glipizide (Glipizide 5 Mg Tab) 5 mg PO AC-BRKFST [facility] Last Admin: 02/23/22 06:38 Dose: 5 mg Insulin Aspart (Insulin Aspart (Novolog) 100 Unit/Ml Vial) 0 unit SQ [facility]; Protocol Last Admin: 02/23/22 11:58 Dose: Not Given Magnesium Oxide (Magnesium Oxide 400 Mg Tab) 400 mg PO DAILY [facility] Last Admin: 02/23/22 09:34 Dose: 400 mg Meclizine HCl (Meclizine 25 Mg Tab) 25 mg PO DAILY PRN PRN Reason: Vertigo Metoprolol Tartrate (Metoprolol Tartrate 50 Mg Tab) 50 mg PO BID [facility] Last Admin: 02/23/22 09:34 Dose: 50 mg Naloxone HCl (Naloxone 0.4 Mg/Ml 1 Ml Vial) 0.2 mg IV Q2M PRN PRN Reason: Opioid Reversal Pravastatin Sodium (Pravastatin Sodium 40 Mg Tab) 40 mg PO HS [facility] Last Admin: 02/22/22 21:19 Dose: 40 mg Sodium Bicarbonate (Sodium Bicarbonate Tab 650 Mg Tab) 650 mg PO BID [facility] Last Admin: 02/23/22 09:34 Dose: 650 mg Tamsulosin HCl (Tamsulosin 0.4 Mg Cap.Er.24h) 0.4 mg PO PC-BRKFST [facility] Last Admin: 02/23/22 09:34 Dose: 0.4 mg Torsemide (Torsemide 20 Mg Tab) 40 mg PO DAILY [facility] Last Admin: 02/23/22 09:33 Dose: 40 mg On examination: VITAL SIGNS: 98, 91, 16, 105/48, 97% room air GENERAL APPEARANCE: Reclining in bed, comfortable, Right upper chest wall PermCath Pressure dressing. HEENT: Normal external appearance of nose and ear. Oral cavity normal EYES: Pupils equal. Conjunctiva normal. NECK: JVD not raised. Mass not palpable. RESPIRATORY: Respiratory effort normal Lungs decreased breath sounds CARDIOVASCULAR: Heart sounds irregular. No edema. ABDOMEN: Soft. Liver and spleen not palpable. No tenderness. No mass palpable. PSYCHIATRY: Alert and oriented x3. Mood and affect normal. INVESTIGATIONS, reviewed in the clinical context: 02/23/2022: Potassium 4.1 BUN 104 creatinine 6.39 02/22/2022: Potassium 4.6 BUN 84 creatinine 5.35 02/20/2022: White count 15.6 hemoglobin 7.7 platelets with 75 potassium 3.9 creatinine 0.75 02/19/2022: Potassium 4.7 creatinine 4.9 to COVID 19 PCR: Detected 02/18/2022: Potassium 4.1 BUN 70 creatinine 5.77 02/17/2022: Potassium 4 BUN 52 creatinine 4.47 Chest x-ray film personally reviewed by nm-[February 16] cardiomegaly White count 5.5 globin 9.1 platelets 2214.1 BUN 78 creatinine 6.93 TSH 1.1 Hepatitis B core total antibody: Nonreactive Previous studies: 2-D echocardiogram [June 2021]: EF 55%, moderate aortic regurgitation, moderate MR, moderate TR. Nuclear stress test June 2021: Negative Assessment and plan: -Acute kidney injury secondary to ATN with component of urinary retention. Ultrasound unremarkable. Started on hemodialysis 02/14/2022. Being followed by nephrology. For outpatient renal biopsy. PermCath placed by Dr. Taryn Hilario on February 20. -Acute hypoxic respiratory failure from CHF: : Corrected On room air -COVID 19 pneumonitis dexamethasone taper -Possible pneumonia, suspect gram-negative organism: Improved IV ceftriaxone,'s completed 7 days.. Previously pro-calcitonin was elevated. Chest x-ray showed some infiltrate. -CAD with a prior history of coronary bypass -Moderate aortic regurgitation, moderate MR, moderate TR followed by cardiology -Metabolic acidosis due to acute kidney injury Oral bicarbonate. Getting dialysis. -Diabetes mellitus type 2 on oral hypoglycemic, with hyperglycemia from steroids Glyburide 5 mg daily. Stop Levemir Follow Accu-Cheks -Iron deficiency anemia Received IV ferrous gluconate. -Paroxysmal atrial flutter fibrillation, currently sinus rhythm Metoprolol. Eliquis. Follow-up with Dr. Kelly Cortés outpatient -Right kidney complex cystic lesion. Being followed by urology -Acute bladder outflow obstruction secondary to enlarged prostate . Hilario catheter. Flomax -Hypertension with chronic kidney disease -Acute on chronic diastolic CHF from EF 55% Hemodialysis -Hyperphosphatemia secondary to acute kidney injury Continue dialysis -Full code Decrease dexamethasone to 2 mg day from tomorrow.. Dialysis today. Per [employer] [employer] discharged to rehab tomorrow.
[2022-02-23 16:53] LABS: Glucose,Whole Blood 321 mg/dL (70-110)
[2022-02-23 19:17] LABS: Glucose,Whole Blood 401 mg/dL (70-110)
[2022-02-23 20:33] LABS: Glucose,Whole Blood 342 mg/dL (70-110)
[2022-02-23] MEDS: FAMOTIDINE 20 MG TAB PO SCH (21:37)
[2022-02-23] MEDS: PRAVASTATIN SODIUM 40 MG TAB PO SCH (21:37)
[2022-02-24 06:25] LABS: Glucose,Whole Blood 103 mg/dL (70-110)
[2022-02-24] MEDS: INSULIN ASPART (NovoLOG) 100 UNIT/ML VIAL SQ SCH ×4 (06:41→21:50)
[2022-02-24] MEDS: glipiZIDE 5 MG TAB PO SCH (06:44)
[2022-02-24] MEDS: AZELASTINE 137MCG/SPRAY NASAL SCH ×2 (08:45→21:50)
[2022-02-24] MEDS: allopurinoL 100 MG TAB PO SCH ×2 (08:45→21:50)
[2022-02-24] MEDS: ASPIRIN 81 MG PO SCH (08:45)
[2022-02-24] MEDS: dexAMETHasone 2 MG TAB PO SCH (08:45)
[2022-02-24] MEDS: TAMSULOSIN 0.4 MG CAP.ER.24H PO SCH (08:45)
[2022-02-24] MEDS: METOPROLOL TARTRATE 50 MG TAB PO SCH ×2 (08:45→21:49)
[2022-02-24] MEDS: MAGNESIUM OXIDE 400 MG TAB PO SCH (08:45)
[2022-02-24] MEDS: amLODIPine 5 MG TAB PO SCH ×2 (08:45→21:50)
[2022-02-24] MEDS: SODIUM BICARBONATE TAB 650 MG TAB PO SCH ×2 (08:45→21:50)
[2022-02-24] MEDS: TORSEMIDE 20 MG TAB PO SCH (08:45)
[2022-02-24] MEDS: APIXABAN 2.5 MG TABLET PO SCH ×2 (08:45→21:49)
--- NOTE | 2022-02-24 11:46 | P.PN ---
Subjective Patient is seen for follow-up for acute kidney injury currently hemodialysis dependent. Patient is status post hemodialysis yesterday. UF of 1.0 L. 24 hour urine output documented at 1.2 L. He will need to have a kidney biopsy performed as outpatient as he remains dialysis dependent. Previous creatinine was 0.8 on 09/18/2021. All serologies were negative. Patient was covid positive on initial admission to the hospital. UA had shown 2+ protein and trace blood. No complaints today Awaiting placement. Objective - Vital Signs Vital signs: Vital Signs Temp 98.1 F 02/24/22 07:59 Pulse 65 02/24/22 07:59 Resp 16 02/24/22 07:59 BP 142/65 02/24/22 07:59 Pulse Ox 95 02/24/22 07:59 FiO2 21 02/22/22 19:45 Intake & Output 02/23/22 02/24/22 02/24/22 18:59 06:59 18:59 Intake Total 300 Output Total 1980 300 Balance -1680 -300 Weight 63 kg 59 kg Intake: Hemodialysis 300 Output: Urine 900 300 Hemodialysis 1080 Other: Voiding Method Indwelling Catheter Indwelling Catheter Indwelling Catheter # Bowel Movements 1 1 - Exam Awake, comfortable, no acute distress Examination of the heart S1 and S2 Examination lungs bilateral breath sounds are heard Abdomen is soft nontender Examination lower extremity shows no significant edema extends [employer] SCI[employer] TE[employer]ER exam grossly intact - Labs CBC & Chem 7: 02/16/22 08:50 02/23/22 08:00 Labs: Abnormal Lab Results - Last 24 Hours (Table) 02/23/22 02/23/22 02/23/22 Range/Units 16:52 19:15 20:32 POC Glucose (mg/dL) 321 H 401 H 342 H (70-110) mg/dL Assessment and Plan Assessment: 1. Acute kidney injury secondary to ATN with component of urinary retention. Etiology not determined , had: COVID Positive test on 02/18/2022. No hydronephrosis noted on kidney ultrasound. Creatinine was 0.8 in August 2021. Creatinine was over 7 this admission. Rule out GN. All serologies were negative. Started on hemodialysis 02/14/2022. Permacath on the right side. Nonoliguric. Dialysis Wednesday. Patient will need kidney biopsy as outpatient 2. Metabolic acidosis secondary to acute kidney injury. Metformin held. Improved. 3. Anemia. Iron deficiency noted. Status post IV iron and completed 02/18/2022. On Aranesp. 4. Right kidney complex cystic lesion. Urology following. 5. Urinary retention. Has Hilario catheter. On Flomax. 6. Hypertension with chronic kidney disease. Stable. 7. Acute on chronic diastolic CHF with moderate aortic and mitral regurgitation. Cardiology following. 8. Diabetes mellitus. 9. Hyperphosphatemia secondary to acute kidney injury. Phosphorus 4.5 dated 02/17/2022. 10. Volume overload. Improved with diuresis and ultrafiltration. 11. Hypomagnesemia from diuresis. On oral magnesium oxide. Better. 12. COVID-19 infection. Plan: Continue with hemodialysis Kidney biopsy as outpatient
[2022-02-24 12:08] LABS: Glucose,Whole Blood 73 mg/dL (70-110)
[2022-02-24 16:54] LABS: Glucose,Whole Blood 170 mg/dL (70-110)
[2022-02-24 19:07] LABS: Glucose,Whole Blood 223 mg/dL (70-110)
--- NOTE | 2022-02-24 21:23 | P.PN ---
Progress Note - Text Progress Note Date: 02/24/22 Presenting complaint: Short of breath Hospital course: This is a pleasant 76 years old male with past medical history of diabetes mellitus, hypertension, benign prostatic hypertrophy, hyperlipidemia Patient states that she has been having dyspnea for the last 3 months getting progressively worse over the last 2 weeks till yesterday he could not bear it anymore sided decided to go to [facility]. Also has been having cough with some phlegm unknown color no chest pain. Patient is complaining of from diarrhea and vomiting for the last 3 days with no abdominal pain. Yesterday he has one bout of loose bowel movement with no blood and lytes in color and he vomited twice with no blood as well. Patient denies any dysuria or urgency. He has some dizziness but no headache or weakness or numbness. However patient feels generally weak. Denies smoking alcohol or illicit tracts. It is not on home oxygen. 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 Martin Patient was transferred from [facility] for dyspnea. Vitals currently showing stable blood pressure 153/95. Patient is saturating 97% on BiPAP. Prior to that he was saturating 91-93% on 6 L oxygen via nasal cannula and he was tachypneic Labs here show an unremarkable CBC except for anemia with hemoglobin 8.5. High lactic acid came back to normal Urine analysis showing 2+ protein. Troponin is elevated at 0.19 [place] [address] creatinine is elevated 7.1. 5 months ago creatinine was normal 0.8. Potassium currently normal formed 0.3 as well as sodium 139. Liver enzymes not significantly elevated. Chest x-ray:Opacity projecting the heart and more posteriorly correlate for pneumonia. A component of pulmonary vascular congestion may also be present. Correlate for CHF EKG showing atrial fibrillation's with controlled rate at 88, mild ST depression in V4 and V5 no other significant ST-T changes 02/16/2022: I assumed care of the patient today from [facility] hospitalist. Patient seen this morning. reclining in bed.. Short of breath. Eating fair. On 6 L nasal cannula. Patient was started on hemodialysis on February 14. Yesterday patient went into atrial flutter with a controlled rate. Back and assessment. 02/17/2022: Awake short of breath. Remains on 5 L nasal cannula. Oral intake fair. A bit tired. We'll have the patient sit up in a chair. Yesterday patient had hemodialysis catheter was replaced as it was malfunctioning. 02/18/2022: Hemodialysis today. FiO2 dropped to 3 L. 92%. Oral intake fair. PermCath placement scheduled for Wednesday. Atrial flutter rate controlled 02/19/2022: Resting in bed. For PermCath placement tomorrow. Oral intake good. Patient's come back positive for COVID 19. 02/20/2022: New PermCath placed in the right upper chest by Dr. Taryn Hilario from yesterday. Getting dialyzed today. Some blood oozing from the dialysis catheter site. Spoke to Dr. Hilario. For pressure dressing. Spoke to the embedded case manager this morning. Per PT OT patient was stable to go home. At the patient review again by PT OT this afternoon. On second assessment if felt patient should go to rehab. Because of COVID places limited. Breathing better. Oral intake fair. I called patient's this evening given an update. Case manag ement will reassess on Wednesday. About rehab placement. 02/21/2022: Comfortable. Oral intake fair. Started on eliquis. Awaiting rehab placement. Cutback dexamethasone to 4 mg. 02/22/2022: Eating well. Pulse ox 95% on room air. Probable dialysis tomorrow. Looking for rehab placement tomorrow. Making urine. 02/23/2022: Dialysis today. Protocol from embedded case manager. We'll go to rehab tomorrow. Oral intake fair. Cutback neck symptoms under 2 mg daily. 02/24/2022: Comfortable. In bed. Oral intake good. Discussed this embedded case manager. Pending rehab authorization. Active Medications Hydrocodone Bitart/Acetaminophen (Hydrocodone/Apap 5-325mg 1 Each Tab) 1 each PO BID PRN PRN Reason: Pain Allopurinol (Allopurinol 100 Mg Tab) 100 mg PO BID [facility] Last Admin: 02/24/22 08:45 Dose: 100 mg Alprazolam (Alprazolam 0.25 Mg Tab) 0.25 mg PO TID PRN PRN Reason: Anxiety Last Admin: 02/16/22 08:23 Dose: 0.25 mg Amlodipine Besylate (Amlodipine 5 Mg Tab) 5 mg PO BID [facility] Last Admin: 02/24/22 08:45 Dose: 5 mg Apixaban (Apixaban 2.5 Mg Tablet) 2.5 mg PO BID [facility]; Protocol Last Admin: 02/24/22 08:45 Dose: 2.5 mg Aspirin (Aspirin 81 Mg) 81 mg PO DAILY [facility] Last Admin: 02/24/22 08:45 Dose: 81 mg Azelastine HCl (Azelastine 137mcg/[place]) 2 spray NASAL BID [facility] Last Admin: 02/24/22 08:45 Dose: 2 spray Darbepoetin Louis (Darbepoetin Louis 40 Mcg/0.4 Ml Syringe) 40 mcg SQ Q7D [facility] Last Admin: 02/19/22 11:25 Dose: 40 mcg Dexamethasone (Dexamethasone 2 Mg Tab) 2 mg PO DAILY [facility] Last Admin: 02/24/22 08:45 Dose: 2 mg Famotidine (Famotidine 20 Mg Tab) 20 mg PO [facility] Last Admin: 02/23/22 21:37 Dose: 20 mg Glipizide (Glipizide 5 Mg Tab) 5 mg PO [facility] Last Admin: 02/24/22 06:44 Dose: 5 mg Insulin Aspart (Insulin Aspart (Novolog) 100 Unit/Ml Vial) 0 unit SQ [facility]; Protocol Last Admin: 02/24/22 17:13 Dose: 1 unit Magnesium Oxide (Magnesium Oxide 400 Mg Tab) 400 mg PO DAILY [facility] Last Admin: 02/24/22 08:45 Dose: 400 mg Meclizine HCl (Meclizine 25 Mg Tab) 25 mg PO DAILY PRN PRN Reason: Vertigo Metoprolol Tartrate (Metoprolol Tartrate 50 Mg Tab) 50 mg PO BID [facility] Last Admin: 02/24/22 08:45 Dose: 50 mg Naloxone HCl (Naloxone 0.4 Mg/Ml 1 Ml Vial) 0.2 mg IV Q2M PRN PRN Reason: Opioid Reversal Pravastatin Sodium (Pravastatin Sodium 40 Mg Tab) 40 mg PO [facility] Last Admin: 02/23/22 21:37 Dose: 40 mg Sodium Bicarbonate (Sodium Bicarbonate Tab 650 Mg Tab) 650 mg PO BID [facility] Last Admin: 02/24/22 08:45 Dose: 650 mg Tamsulosin HCl (Tamsulosin 0.4 Mg Cap.Er.24h) 0.4 mg PO -[facility] Last Admin: 02/24/22 08:45 Dose: 0.4 mg Torsemide (Torsemide 20 Mg Tab) 40 mg PO DAILY [facility] Last Admin: 02/24/22 08:45 Dose: 40 mg On examination: VITAL SIGNS: 98.4, 74, 17, 1 54 x 68, 97% room air GENERAL APPEARANCE: Reclining in bed, comfortable, Right upper chest wall PermCath Pressure dressing. HEENT: Normal external appearance of nose and ear. Oral cavity normal EYES: Pupils equal. Conjunctiva normal. NECK: JVD not raised. Mass not palpable. RESPIRATORY: Respiratory effort normal Lungs decreased breath sounds CARDIOVASCULAR: Heart sounds irregular. No edema. ABDOMEN: Soft. Liver and spleen not palpable. No tenderness. No mass palpable. PSYCHIATRY: Alert and oriented x3. Mood and affect normal. INVESTIGATIONS, reviewed in the clinical context: 02/23/2022: Potassium 4.1 BUN 104 creatinine 6.39 02/22/2022: Potassium 4.6 BUN 84 creatinine 5.35 02/20/2022: White count 15.6 hemoglobin 7.7 platelets with 75 potassium 3.9 creatinine 0.75 02/19/2022: Potassium 4.7 creatinine 4.9 to COVID 19 PCR: Detected 02/18/2022: Potassium 4.1 BUN 70 creatinine 5.77 02/17/2022: Potassium 4 BUN 52 creatinine 4.47 Chest x-ray film personally reviewed by mi-[February 16] cardiomegaly White count 5.5 globin 9.1 platelets 2214.1 BUN 78 creatinine 6.93 TSH 1.1 Hepatitis B core total antibody: Nonreactive Previous studies: 2-D echocardiogram [June 2021]: EF 55%, moderate aortic regurgitation, moderate MR, moderate TR. Nuclear stress test June 2021: Negative Assessment and plan: -Acute kidney injury secondary to ATN with component of urinary retention. Ultrasound unremarkable. Started on hemodialysis 02/14/2022. Being followed by nephrology. For outpatient renal biopsy. PermCath placed by Dr. Taryn Hilario on February 20. -Acute hypoxic respiratory failure from CHF: : Corrected On room air -COVID 19 pneumonitis dexamethasone taper -Possible pneumonia, suspect gram-negative organism: Improved IV ceftriaxone,'s completed 7 days.. Previously pro-calcitonin was elevated. Chest x-ray showed some infiltrate. -CAD with a prior history of coronary bypass -Moderate aortic regurgitation, moderate MR, moderate TR followed by cardiology -Metabolic acidosis due to acute kidney injury Oral bicarbonate. Getting dialysis. -Diabetes mellitus type 2 on oral hypoglycemic, with hyperglycemia from steroids Glyburide 5 mg daily. Stop Levemir Follow Accu-Cheks -Iron deficiency anemia Received IV ferrous gluconate. -Paroxysmal atrial flutter fibrillation, currently sinus rhythm Metoprolol. Eliquis. Follow-up with Dr. Kelly Cortés outpatient -Right kidney complex cystic lesion. Being followed by urology -Acute bladder outflow obstruction secondary to enlarged prostate . Hilario catheter. Flomax -Hypertension with chronic kidney disease -Acute on chronic diastolic CHF from EF 55% Hemodialysis -Hyperphosphatemia secondary to acute kidney injury Continue dialysis -Full code Continue current medication treatment plan. Discussed with embedded case manager. Pending authorization. We'll stop dexamethasone after tomorrow.
[2022-02-24] MEDS: PRAVASTATIN SODIUM 40 MG TAB PO SCH (21:50)
[2022-02-24] MEDS: FAMOTIDINE 20 MG TAB PO SCH (21:50)
[2022-02-25 06:02] LABS: Glucose,Whole Blood 86 mg/dL (70-110)
[2022-02-25] MEDS: INSULIN ASPART (NovoLOG) 100 UNIT/ML VIAL SQ SCH ×4 (06:14→20:27)
[2022-02-25] MEDS: glipiZIDE 5 MG TAB PO SCH (07:02)
[2022-02-25 07:34] LABS: Glucose,Whole Blood 80 mg/dL (70-110)
[2022-02-25] MEDS: dexAMETHasone 2 MG TAB PO SCH (08:04)
[2022-02-25] MEDS: APIXABAN 2.5 MG TABLET PO SCH ×2 (08:04→20:26)
[2022-02-25] MEDS: SODIUM BICARBONATE TAB 650 MG TAB PO SCH ×2 (08:04→20:26)
[2022-02-25] MEDS: TAMSULOSIN 0.4 MG CAP.ER.24H PO SCH (08:04)
[2022-02-25] MEDS: MAGNESIUM OXIDE 400 MG TAB PO SCH (08:04)
[2022-02-25] MEDS: allopurinoL 100 MG TAB PO SCH ×2 (08:04→20:26)
[2022-02-25] MEDS: ASPIRIN 81 MG PO SCH (08:04)
[2022-02-25] MEDS: amLODIPine 5 MG TAB PO SCH ×2 (08:05→20:26)
[2022-02-25] MEDS: METOPROLOL TARTRATE 50 MG TAB PO SCH ×2 (08:05→20:27)
[2022-02-25] MEDS: AZELASTINE 137MCG/SPRAY NASAL SCH ×2 (08:05→20:27)
[2022-02-25] MEDS: TORSEMIDE 20 MG TAB PO SCH (08:06)
[2022-02-25 10:54] LABS: Glucose,Whole Blood 103 mg/dL (70-110)
--- NOTE | 2022-02-25 12:32 | P.PN ---
Subjective Patient is seen for follow-up for acute kidney injury currently hemodialysis dependent. Patient is status post hemodialysis yesterday. UF of 1.0 L. 24 hour urine output documented at 1.2 L. He will need to have a kidney biopsy performed as outpatient as he remains dialysis dependent. Previous creatinine was 0.8 on 09/18/2021. All serologies were negative. Patient was covid positive on initial admission to the hospital. UA had shown 2+ protein and trace blood. Patient had bleeding from his permacath site as it may have been talked. Dres sing is currently intact and patient has not had any further bleeding. He is currently seen on hemodialysis. Patient continues to have good urine output. Awaiting placement. 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 Acute kidney injury secondary to ATN with component of urinary retention. Etiology not determined , had: COVID Positive test on 02/18/2022. No hydronephrosis noted on kidney ultrasound. Creatinine was 0.8 in August 2021. Creatinine was over 7 this admission. Rule out GN. All serologies were negative. Started on hemodialysis 02/14/2022. Permacath on the right side. Nonoliguric. Dialysis Wednesday. Patient will need kidney biopsy as outpatient 2. Metabolic acidosis secondary to acute kidney injury. Metformin held. Improved. 3. Anemia. Iron deficiency noted. Status post IV iron and completed 02/18/2022. On Aranesp. 4. Right kidney complex cystic lesion. Urology following. 5. Urinary retention. Has Hilario catheter. On Flomax. 6. Hypertension with chronic kidney disease. Stable. 7. Acute on chronic diastolic CHF with moderate aortic and mitral regurgitation. Cardiology following. 8. Diabetes mellitus. 9. Hyperphosphatemia secondary to acute kidney injury. Phosphorus 4.5 dated 02/17/2022. 10. Volume overload. Improved with diuresis and ultrafiltration. 11. Hypomagnesemia from diuresis. On oral magnesium oxide. Better. 12. COVID-19 infection. Plan: Patient is stable for discharge from nephrology standpoint. Continue with hemodialysis as outpatient Continue to monitor for recovery of renal function as outpatient Arrange for kidney biopsy as outpatient. Continue with Hilario catheter.
[2022-02-25 15:29] LABS: Glucose,Whole Blood 183 mg/dL (70-110)
--- NOTE | 2022-02-25 18:33 | P.PN ---
Progress Note - Text Progress Note Date: 02/25/22 Presenting complaint: Short of breath Hospital course: This is a pleasant 76 years old male with past medical history of diabetes mellitus, hypertension, benign prostatic hypertrophy, hyperlipidemia Patient states that she has been having dyspnea for the last 3 months getting progressively worse over the last 2 weeks till yesterday he could not bear it anymore sided decided to go to [facility]. Also has been having cough with some phlegm unknown color no chest pain. Patient is complaining of from diarrhea and vomiting for the last 3 days with no abdominal pain. Yesterday he has one bout of loose bowel movement with no blood and lytes in color and he vomited twice with no blood as well. Patient denies any dysuria or urgency. He has some dizziness but no headache or weakness or numbness. However patient feels generally weak. Denies smoking alcohol or illicit tracts. It is not on home oxygen. He is Dr. Downs, invasive manager Dr. Cortés and urologist is Dr. Martin Patient was transferred from [facility] for dyspnea. Vitals currently showing stable blood pressure 153/95. Patient is saturating 97% on BiPAP. Prior to that he was saturating 91-93% on 6 L oxygen via nasal cannula and he was tachypneic Labs here show an unremarkable CBC except for anemia with hemoglobin 8.5. High lactic acid came back to normal Urine analysis showing 2+ protein. Troponin is elevated at 0.19 [place] 61768 creatinine is elevated 7.1. 5 months ago creatinine was normal 0.8. Potassium currently normal formed 0.3 as well as sodium 139. Liver enzymes not significantly elevated. Chest x-ray:Opacity projecting the heart and more posteriorly correlate for pneumonia. A component of pulmonary vascular congestion may also be present. Correlate for CHF EKG showing atrial fibrillation's with controlled rate at 88, mild ST depression in V4 and V5 no other significant ST-T changes 02/16/2022: I assumed care of the patient today from [facility] hospitalist. Patient seen this morning. reclining in bed.. Short of breath. Eating fair. On 6 L nasal cannula. Patient was started on hemodialysis on February 14. Yesterday patient went into atrial flutter with a controlled rate. Back and assessment. 02/17/2022: Awake short of breath. Remains on 5 L nasal cannula. Oral intake fair. A bit tired. We'll have the patient sit up in a chair. Yesterday patient had hemodialysis catheter was replaced as it was malfunctioning. 02/18/2022: Hemodialysis today. FiO2 dropped to 3 L. 92%. Oral intake fair. PermCath placement scheduled for Wednesday. Atrial flutter rate controlled 02/19/2022: Resting in bed. For PermCath placement tomorrow. Oral intake good. Patient's come back positive for COVID 19. 02/20/2022: New PermCath placed in the right upper chest by Dr. Taryn Hilario from yesterday. Getting dialyzed today. Some blood oozing from the dialysis catheter site. Spoke to Dr. Hilario. For pressure dressing. Spoke to the gearcase assembler this morning. Per PT OT patient was stable to go home. At the patient review again by PT OT this afternoon. On second assessment if felt patient should go to rehab. Because of COVID places limited. Breathing better. Oral intake fair. I called patient's this evening given an update. Case manag ement will reassess on Wednesday. About rehab placement. 02/21/2022: Comfortable. Oral intake fair. Started on eliquis. Awaiting rehab placement. Cutback dexamethasone to 4 mg. 02/22/2022: Eating well. Pulse ox 95% on room air. Probable dialysis tomorrow. Looking for rehab placement tomorrow. Making urine. 02/23/2022: Dialysis today. Protocol from gearcase assembler. We'll go to rehab tomorrow. Oral intake fair. Cutback neck symptoms under 2 mg daily. 02/24/2022: Comfortable. In bed. Oral intake good. Discussed this gearcase assembler. Pending rehab authorization. 02/25/2022: Laying in bed. Comfortable. Eating well. Per PT notes yesterday patient walked 120 feet. Put OT notes patient doing well. I did. peer to peer review with patient's insurance company. Inpatient rehab was declined. Spoke to the gearcase assembler. Patient's family's appealing discharge. Patient making good urine. Hilario catheter. Hemodialysis today less than 1 L being removed. On examination: VITAL SIGNS: 96.6, 63, 13, 1 32 x 53, 97% room air GENERAL APPEARANCE: Reclining in bed, comfortable, Right upper chest wall PermCath Pressure dressing. Getting dialysis. HEENT: Normal external appearance of nose and ear. Oral cavity normal EYES: Pupils equal. Conjunctiva normal. NECK: JVD not raised. Mass not palpable. RESPIRATORY: Respiratory effort normal Lungs decreased breath sounds CARDIOVASCULAR: Heart sounds irregular. No edema. ABDOMEN: Soft. Liver and spleen not palpable. No tenderness. No mass palpable. PSYCHIATRY: Alert and oriented x3. Mood and affect normal. INVESTIGATIONS, reviewed in the clinical context: 02/23/2022: Potassium 4.1 BUN 104 creatinine 6.39 02/22/2022: Potassium 4.6 BUN 84 creatinine 5.35 02/20/2022: White count 15.6 hemoglobin 7.7 platelets with 75 potassium 3.9 creatinine 0.75 02/19/2022: Potassium 4.7 creatinine 4.9 to COVID 19 PCR: Detected 02/18/2022: Potassium 4.1 BUN 70 creatinine 5.77 02/17/2022: Potassium 4 BUN 52 creatinine 4.47 Chest x-ray film personally reviewed by nm-[February 16] cardiomegaly White count 5.5 globin 9.1 platelets 2214.1 BUN 78 creatinine 6.93 TSH 1.1 Hepatitis B core total antibody: Nonreactive Previous studies: 2-D echocardiogram [June 2021]: EF 55%, moderate aortic regurgitation, moderate MR, moderate TR. Nuclear stress test June 2021: Negative Assessment and plan: -Acute kidney injury secondary to ATN with component of urinary retention. Ultrasound unremarkable. Started on hemodialysis 02/14/2022. Being followed by nephrology. For outpatient renal biopsy. PermCath placed by Dr. Taryn Hilario on February 20. -Acute hypoxic respiratory failure from CHF: : Corrected On room air -COVID 19 pneumonitis dexamethasone discontinued after today -Possible pneumonia, suspect gram-negative organism: Improved IV ceftriaxone,'s completed 7 days.. Previously pro-calcitonin was elevated. Chest x-ray showed some infiltrate. -CAD with a prior history of coronary bypass -Moderate aortic regurgitation, moderate MR, moderate TR followed by cardiology -Metabolic acidosis due to acute kidney injury Oral bicarbonate. Getting dialysis. -Diabetes mellitus type 2 on oral hypoglycemic, with hyperglycemia from steroids Glyburide 5 mg daily. Stop Levemir Follow Accu-Cheks -Iron deficiency anemia Received IV ferrous gluconate. -Paroxysmal atrial flutter fibrillation, currently sinus rhythm Metoprolol. Eliquis. Follow-up with Dr. Kelly Cortés outpatient -Right kidney complex cystic lesion. Being followed by urology -Acute bladder outflow obstruction secondary to enlarged prostate . Hilario catheter. Flomax -Hypertension with chronic kidney disease -Acute on chronic diastolic CHF from EF 55% Hemodialysis -Hyperphosphatemia secondary to acute kidney injury Continue dialysis -Full code Spoke to gearcase assembler couple of times a day. Spoke to patient's insurance company. Did decline inpatient rehab. PT OT notes show patient is doing well. Patient's family has appealed discharge.
[2022-02-25 19:25] LABS: Glucose,Whole Blood 180 mg/dL (70-110)
[2022-02-25] MEDS: PRAVASTATIN SODIUM 40 MG TAB PO SCH (20:26)
[2022-02-25] MEDS: FAMOTIDINE 20 MG TAB PO SCH (20:27)
[2022-02-26 06:04] LABS: Glucose,Whole Blood 88 mg/dL (70-110)
[2022-02-26] MEDS: INSULIN ASPART (NovoLOG) 100 UNIT/ML VIAL SQ SCH ×4 (06:34→19:59)
[2022-02-26] MEDS: glipiZIDE 5 MG TAB PO SCH (06:44)
[2022-02-26 08:02] LABS: African American GFR (CKD) 17 (>60 ml/min/1.73 sqM); Anion Gap 6 mmol/L; Blood Urea Nitrogen 45 mg/dL (9-20); Calcium 8.1 mg/dL (8.4-10.2); Carbon Dioxide 28 mmol/L (22-30); Chloride 100 mmol/L (98-107); Glucose 78 mg/dL (74-99); Non-African American GFR(CKD) 15 (>60 ml/min/1.73 sqM); Potassium 4.5 mmol/L (3.5-5.1); Sodium 134 mmol/L (137-145)
[2022-02-26 08:04] LABS: Basophils % (A) 0 %; Eosinophils # (A) 0.2 k/uL (0-0.7); Eosinophils % (A) 2 %; HCT 27.3 % (39.0-53.0); HGB 9.3 gm/dL (13.0-17.5); Lymphocytes # (A) 2.3 k/uL (1.0-4.8); Lymphocytes % (A) 22 %; MCH 35.1 pg (25.0-35.0); MCHC 34.3 g/dL (31.0-37.0); MCV 102.4 fL (80.0-100.0); Macrocytosis Slight; Mean Platelet Volume 8.8; Monocytes # (A) 0.7 k/uL (0-1.0); Monocytes % (A) 6 %; Neutrophils # (A) 7.3 k/uL (1.3-7.7); Neutrophils % (A) 69 %; Platelet Count 376 k/uL (150-450); RBC 2.66 m/uL (4.30-5.90); RDW 15.6 % (11.5-15.5); WBC 10.6 k/uL (3.8-10.6)
[2022-02-26] MEDS: SODIUM BICARBONATE TAB 650 MG TAB PO SCH ×2 (09:57→20:14)
[2022-02-26] MEDS: METOPROLOL TARTRATE 50 MG TAB PO SCH ×2 (09:57→20:13)
[2022-02-26] MEDS: allopurinoL 100 MG TAB PO SCH ×2 (09:57→20:14)
[2022-02-26] MEDS: APIXABAN 2.5 MG TABLET PO SCH ×2 (09:57→20:13)
[2022-02-26] MEDS: ASPIRIN 81 MG PO SCH (09:57)
[2022-02-26] MEDS: MAGNESIUM OXIDE 400 MG TAB PO SCH (09:57)
[2022-02-26] MEDS: TAMSULOSIN 0.4 MG CAP.ER.24H PO SCH (09:57)
[2022-02-26] MEDS: amLODIPine 5 MG TAB PO SCH ×2 (09:57→20:13)
[2022-02-26] MEDS: TORSEMIDE 20 MG TAB PO SCH (09:57)
[2022-02-26] MEDS: AZELASTINE 137MCG/SPRAY NASAL SCH ×2 (09:58→20:14)
--- NOTE | 2022-02-26 11:11 | P.PN ---
Subjective Patient is seen for follow-up for acute kidney injury currently hemodialysis dependent. Patient is status post hemodialysis yesterday. UF of 1.0 L. 24 hour urine output documented at 1.2 L. He will need to have a kidney biopsy performed as outpatient as he remains dialysis dependent. Previous creatinine was 0.8 on 09/18/2021. All serologies were negative. Patient was covid positive on initial admission to the hospital. UA had shown 2+ protein and trace blood. Patient had bleeding from his permacath site as it may have been talked. Dres sing is currently intact and patient has not had any further bleeding. He is currently seen on hemodialysis. Patient continues to have good urine output. Awaiting placement. Objective - Vital Signs Vital signs: Vital Signs Temp 97.8 F 02/26/22 10:00 Pulse 57 L 02/26/22 10:00 Resp 17 02/26/22 10:00 BP 113/54 02/26/22 10:00 Pulse Ox 97 02/26/22 10:00 FiO2 21 02/22/22 19:45 Intake & Output 02/25/22 02/26/22 02/26/22 18:59 06:59 18:59 Intake Total 300 Output Total 1600 650 Balance -1300 -650 Weight 58.5 kg Intake: Hemodialysis 300 Output: Urine 300 650 Hemodialysis 1300 Other: Voiding Method Indwelling Catheter Indwelling Catheter - Exam Awake, comfortable, no acute distress Patient appears euvolemic. Abdomen is soft nontender Examination lower extremity shows no significant edema TEENAGE PROGRAM DIRECTOR exam grossly intact - Labs CBC & Chem 7: 02/26/22 06:57 02/26/22 06:57 Labs: Abnormal Lab Results - Last 24 Hours (Table) 02/25/22 02/25/22 02/26/22 Range/Units 15:28 19:23 06:57 RBC (4.30-5.90) m/uL Hgb (13.0-17.5) gm/dL Hct (39.0-53.0) % MCV (80.0-100.0) fL MCH (25.0-35.0) pg RDW (11.5-15.5) % Sodium 134 L (137-145) mmol/L BUN 45 H (9-20) mg/dL Creatinine 3.72 H (0.66-1.25) mg/dL POC Glucose (mg/dL) 183 H 180 H (70-110) mg/dL Calcium 8.1 L (8.4-10.2) mg/dL 02/26/22 Range/Units 06:57 RBC 2.66 L (4.30-5.90) m/uL Hgb 9.3 L (13.0-17.5) gm/dL Hct 27.3 L (39.0-53.0) % MCV 102.4 H (80.0-100.0) fL MCH 35.1 H (25.0-35.0) pg RDW 15.6 H (11.5-15.5) % Sodium (137-145) mmol/L BUN (9-20) mg/dL Creatinine (0.66-1.25) mg/dL POC Glucose (mg/dL) (70-110) mg/dL Calcium (8.4-10.2) mg/dL Assessment and Plan Assessment: 1. Acute kidney injury secondary to ATN with component of urinary retention. Etiology not determined , COVID Positive test on 02/18/2022. No hydronephrosis noted on kidney ultrasound. Creatinine was 0.8 in August 2021. Creatinine was over 7 this admission. Rule out GN. All serologies were negative. Started on hemodialysis 02/14/2022. Permacath on the right side. Nonoliguric. Dialysis Wednesday. Patient will need kidney biopsy as outpatient 2. Metabolic acidosis secondary to acute kidney injury. Metformin held. Improved. 3. Anemia. Iron deficiency noted. Status post IV iron and completed 02/18/2022. On Aranesp. 4. Right kidney complex cystic lesion. Urology following. 5. Urinary retention. Has Hilario catheter. On Flomax. 6. Hypertension with chronic kidney disease. Stable. 7. Acute on chronic diastolic CHF with moderate aortic and mitral regurgitation. Cardiology following. 8. Diabetes mellitus. 9. Hyperphosphatemia secondary to acute kidney injury. Phosphorus 4.5 dated 02/17/2022. 10. Volume overload. Improved with diuresis and ultrafiltration. 11. Hypomagnesemia from diuresis. On oral magnesium oxide. Better. 12. COVID-19 infection. Plan: Repeat labs shirt turner. They may be recovery of renal function. I will hold dialysis if serum creatinine is lower tomorrow.
[2022-02-26] MEDS ORDERED: LACTULOSE 20 GM/30 ML CUP PO ONE (11:23)
[2022-02-26 11:41] LABS: Glucose,Whole Blood 68 mg/dL (70-110)
[2022-02-26 11:58] LABS: Glucose,Whole Blood 78 mg/dL (70-110)
[2022-02-26 12:17] VITALS: BMI 21.4
[2022-02-26] MEDS: PSYLLIUM HUSK 100% 6 GM PACKET PO SCH (13:32)
[2022-02-26] MEDS: DARBEPOETIN ALFA 40 MCG/0.4 ML SYRINGE SQ SCH (13:34)
--- NOTE | 2022-02-26 13:36 | P.PN ---
Progress Note - Text Progress Note Date: 02/26/22 Presenting complaint: Short of breath Hospital course: This is a pleasant 76 years old male with past medical history of diabetes mellitus, hypertension, benign prostatic hypertrophy, hyperlipidemia Patient states that she has been having dyspnea for the last 3 months getting progressively worse over the last 2 weeks till yesterday he could not bear it anymore sided decided to go to [facility]. Also has been having cough with some phlegm unknown color no chest pain. Patient is complaining of from diarrhea and vomiting for the last 3 days with no abdominal pain. Yesterday he has one bout of loose bowel movement with no blood and lytes in color and he vomited twice with no blood as well. Patient denies any dysuria or urgency. He has some dizziness but no headache or weakness or numbness. However patient feels generally weak. Denies smoking alcohol or illicit tracts. It is not on home oxygen. He is Dr. Downs, customer quality specialist Dr. Cortés and urologist is Dr. Martin Patient was transferred from [facility] for dyspnea. Vitals currently showing stable blood pressure 153/95. Patient is saturating 97% on BiPAP. Prior to that he was saturating 91-93% on 6 L oxygen via nasal cannula and he was tachypneic Labs here show an unremarkable CBC except for anemia with hemoglobin 8.5. High lactic acid came back to normal Urine analysis showing 2+ protein. Troponin is elevated at 0.19 [place] 0[address]15 creatinine is elevated 7.1. 5 months ago creatinine was normal 0.8. Potassium currently normal formed 0.3 as well as sodium 139. Liver enzymes not significantly elevated. Chest x-ray:Opacity projecting the heart and more posteriorly correlate for pneumonia. A component of pulmonary vascular congestion may also be present. Correlate for CHF EKG showing atrial fibrillation's with controlled rate at 88, mild ST depression in V4 and V5 no other significant ST-T changes 02/16/2022: I assumed care of the patient today from [facility] hospitalist. Patient seen this morning. reclining in bed.. Short of breath. Eating fair. On 6 L nasal cannula. Patient was started on hemodialysis on February 14. Yesterday patient went into atrial flutter with a controlled rate. Back and assessment. 02/17/2022: Awake short of breath. Remains on 5 L nasal cannula. Oral intake fair. A bit tired. We'll have the patient sit up in a chair. Yesterday patient had hemodialysis catheter was replaced as it was malfunctioning. 02/18/2022: Hemodialysis today. FiO2 dropped to 3 L. 92%. Oral intake fair. PermCath placement scheduled for Wednesday. Atrial flutter rate controlled 02/19/2022: Resting in bed. For PermCath placement tomorrow. Oral intake good. Patient's come back positive for COVID 19. 02/20/2022: New PermCath placed in the right upper chest by Dr. Taryn Hilario from yesterday. Getting dialyzed today. Some blood oozing from the dialysis catheter site. Spoke to Dr. Hilario. For pressure dressing. Spoke to the caser up this morning. Per PT OT patient was stable to go home. At the patient review again by PT OT this afternoon. On second assessment if felt patient should go to rehab. Because of COVID places limited. Breathing better. Oral intake fair. I called patient's this evening given an update. Case manag ement will reassess on Wednesday. About rehab placement. 02/21/2022: Comfortable. Oral intake fair. Started on eliquis. Awaiting rehab placement. Cutback dexamethasone to 4 mg. 02/22/2022: Eating well. Pulse ox 95% on room air. Probable dialysis tomorrow. Looking for rehab placement tomorrow. Making urine. 02/23/2022: Dialysis today. Protocol from caser up. We'll go to rehab tomorrow. Oral intake fair. Cutback neck symptoms under 2 mg daily. 02/24/2022: Comfortable. In bed. Oral intake good. Discussed this caser up. Pending rehab authorization. 02/25/2022: Laying in bed. Comfortable. Eating well. Per PT notes yesterday patient walked 120 feet. Put OT notes patient doing well. I did. peer to peer review with patient's insurance company. Inpatient rehab was declined. Spoke to the caser up. Patient's family's appealing discharge. Patient making good urine. Hilario catheter. Hemodialysis today less than 1 L being removed. 02/26/2022: Laying in bed. Comfortable. Family has appealed discharge. Awaiting this decision from insurance company. Dialysis per nephrology. Oral intake between 75-100% Active Medications Hydrocodone Bitart/Acetaminophen (Hydrocodone/Apap 5-325mg 1 Each Tab) 1 each PO BID PRN PRN Reason: Pain Allopurinol (Allopurinol 100 Mg Tab) 100 mg PO BID [facility] Last Admin: 02/26/22 09:57 Dose: 100 mg Alprazolam (Alprazolam 0.25 Mg Tab) 0.25 mg PO TID PRN PRN Reason: Anxiety Last Admin: 02/16/22 08:23 Dose: 0.25 mg Amlodipine Besylate (Amlodipine 5 Mg Tab) 5 mg PO BID [facility] Last Admin: 02/26/22 09:57 Dose: 5 mg Apixaban (Apixaban 2.5 Mg Tablet) 2.5 mg PO BID [facility]; Protocol Last Admin: 02/26/22 09:57 Dose: 2.5 mg Aspirin (Aspirin 81 Mg) 81 mg PO DAILY [facility] Last Admin: 02/26/22 09:57 Dose: 81 mg Azelastine HCl (Azelastine 137mcg/Smith) 2 spray NASAL BID [facility] Last Admin: 02/26/22 09:58 Dose: 2 spray Darbepoetin Louis (Darbepoetin Louis 40 Mcg/0.4 Ml Syringe) 40 mcg SQ Q7D [facility] Last Admin: 02/19/22 11:25 Dose: 40 mcg Famotidine (Famotidine 20 Mg Tab) 20 mg PO HS [facility] Last Admin: 02/25/22 20:27 Dose: 20 mg Glipizide (Glipizide 5 Mg Tab) 5 mg PO AC-BRKFST [facility] Last Admin: 02/26/22 06:44 Dose: 5 mg Insulin Aspart (Insulin Aspart (Novolog) 100 Unit/Ml Vial) 0 unit SQ [facility]; Protocol Last Admin: 02/26/22 11:52 Dose: Not Given Magnesium Oxide (Magnesium Oxide 400 Mg Tab) 400 mg PO DAILY [facility] Last Admin: 02/26/22 09:57 Dose: 400 mg Meclizine HCl (Meclizine 25 Mg Tab) 25 mg PO DAILY PRN PRN Reason: Vertigo Metoprolol Tartrate (Metoprolol Tartrate 50 Mg Tab) 50 mg PO BID [facility] Last Admin: 02/26/22 09:57 Dose: 50 mg Naloxone HCl (Naloxone 0.4 Mg/Ml 1 Ml Vial) 0.2 mg IV Q2M PRN PRN Reason: Opioid Reversal Pravastatin Sodium (Pravastatin Sodium 40 Mg Tab) 40 mg PO HS [facility] Last Admin: 02/25/22 20:26 Dose: 40 mg Psyllium Hydrophilic Mucilloid (Psyllium Husk 100% 6 Gm Packet) 6 gm PO DAILY [facility] Last Admin: 02/26/22 13:32 Dose: 6 gm Sodium Bicarbonate (Sodium Bicarbonate Tab 650 Mg Tab) 650 mg PO BID [facility] Last Admin: 02/26/22 09:57 Dose: 650 mg Tamsulosin HCl (Tamsulosin 0.4 Mg Cap.Er.24h) 0.4 mg PO PC-BRKFST [facility] Last Admin: 02/26/22 09:57 Dose: 0.4 mg Torsemide (Torsemide 20 Mg Tab) 40 mg PO DAILY [facility] Last Admin: 02/26/22 09:57 Dose: 40 mg On examination: VITAL SIGNS: 97.8, 57, 17, 130/54, 97% room air GENERAL APPEARANCE: Reclining in bed, comfortable, Right upper chest wall PermCath Pressure dressing. HEENT: Normal external appearance of nose and ear. Oral cavity normal EYES: Pupils equal. Conjunctiva normal. NECK: JVD not raised. Mass not palpable. RESPIRATORY: Respiratory effort normal Lungs decreased breath sounds CARDIOVASCULAR: Heart sounds irregular. No edema. ABDOMEN: Soft. Liver and spleen not palpable. No tenderness. No mass palpable. PSYCHIATRY: Alert and oriented x3. Mood and affect normal. INVESTIGATIONS, reviewed in the clinical context: 02/23/2022: Potassium 4.1 BUN 104 creatinine 6.39 COVID 19 PCR: Detected Chest x-ray film personally reviewed by oh-[February 16] cardiomegaly White count 5.5 globin 9.1 platelets 2214.1 BUN 78 creatinine 6.93 TSH 1.1 Hepatitis B core total antibody: Nonreactive Previous studies: 2-D echocardiogram [June 2021]: EF 55%, moderate aortic regurgitation, moderate MR, moderate TR. Nuclear stress test June 2021: Negative Assessment and plan: -Acute kidney injury secondary to ATN with component of urinary retention. Ultrasound unremarkable. Started on hemodialysis 02/14/2022. Being followed by nephrology. For outpatient renal biopsy. PermCath placed by Dr. Taryn Hilario on February 20. -Acute hypoxic respiratory failure from CHF: : Corrected On room air -COVID 19 pneumonitis dexamethasone discontinued -Possible pneumonia, suspect gram-negative organism: Improved IV ceftriaxone,'s completed 7 days.. Previously pro-calcitonin was elevated. Chest x-ray showed some infiltrate. -CAD with a prior history of coronary bypass -Moderate aortic regurgitation, moderate MR, moderate TR followed by cardiology -Metabolic acidosis due to acute kidney injury Oral bicarbonate. Getting dialysis. -Diabetes mellitus type 2 on oral hypoglycemic, with hyperglycemia from steroids Glyburide 5 mg daily. Stop Levemir Follow Accu-Cheks -Iron deficiency anemia Received IV ferrous gluconate. -Paroxysmal atrial flutter fibrillation, currently sinus rhythm Metoprolol. Eliquis. Follow-up with Dr. Kelly Cortés outpatient -Right kidney complex cystic lesion. Being followed by urology -Acute bladder outflow obstruction secondary to enlarged prostate . Hilario catheter. Flomax -Hypertension with chronic kidney disease -Acute on chronic diastolic CHF from EF 55% Hemodialysis -Hyperphosphatemia secondary to acute kidney injury Continue dialysis -Full code Continue current medication treatment plan. Awaiting decision from insurance company about discharge that has been appealed
[2022-02-26 16:36] LABS: Glucose,Whole Blood 104 mg/dL (70-110)
[2022-02-26 19:39] LABS: Glucose,Whole Blood 115 mg/dL (70-110)
[2022-02-26] MEDS: PRAVASTATIN SODIUM 40 MG TAB PO SCH (20:14)
[2022-02-26] MEDS: FAMOTIDINE 20 MG TAB PO SCH (20:14)
[2022-02-27 06:03] LABS: Glucose,Whole Blood 83 mg/dL (70-110)
[2022-02-27 06:03] LABS: African American GFR (CKD) 13 (>60 ml/min/1.73 sqM); Anion Gap 8 mmol/L; Blood Urea Nitrogen 59 mg/dL (9-20); Carbon Dioxide 26 mmol/L (22-30); Chloride 98 mmol/L (98-107); Glucose 73 mg/dL (74-99); Non-African American GFR(CKD) 11 (>60 ml/min/1.73 sqM); Potassium 4.9 mmol/L (3.5-5.1); Sodium 132 mmol/L (137-145)
[2022-02-27] MEDS: INSULIN ASPART (NovoLOG) 100 UNIT/ML VIAL SQ SCH ×4 (06:15→22:00)
[2022-02-27] MEDS: glipiZIDE 5 MG TAB PO SCH (06:55)
[2022-02-27 11:32] LABS: Glucose,Whole Blood 75 mg/dL (70-110)
[2022-02-27] MEDS: METOPROLOL TARTRATE 50 MG TAB PO SCH ×2 (11:48→22:00)
[2022-02-27] MEDS: APIXABAN 2.5 MG TABLET PO SCH ×2 (14:49→22:01)
[2022-02-27] MEDS: ASPIRIN 81 MG PO SCH (14:49)
[2022-02-27] MEDS: TAMSULOSIN 0.4 MG CAP.ER.24H PO SCH (14:49)
[2022-02-27] MEDS: allopurinoL 100 MG TAB PO SCH ×2 (14:49→22:01)
[2022-02-27] MEDS: AZELASTINE 137MCG/SPRAY NASAL SCH ×2 (14:51→22:01)
[2022-02-27] MEDS: amLODIPine 5 MG TAB PO SCH ×2 (14:52→22:00)
[2022-02-27] MEDS: TORSEMIDE 20 MG TAB PO SCH (14:52)
[2022-02-27] MEDS: PSYLLIUM HUSK 100% 6 GM PACKET PO SCH (14:57)
[2022-02-27] MEDS: SODIUM BICARBONATE TAB 650 MG TAB PO SCH ×2 (14:57→22:01)
[2022-02-27] MEDS: MAGNESIUM OXIDE 400 MG TAB PO SCH (14:57)
--- NOTE | 2022-02-27 16:40 | P.PN ---
Subjective Patient is seen for follow-up for acute kidney injury currently hemodialysis dependent. Patient is status post hemodialysis yesterday. UF of 1.0 L. 24 hour urine output documented at 1.2 L. He will need to have a kidney biopsy performed as outpatient as he remains dialysis dependent. Previous creatinine was 0.8 on 09/18/2021. All serologies were negative. Patient was covid positive on initial admission to the hospital. UA had shown 2+ protein and trace blood. Patient is currently seen on hemodialysis. Tolerating treatment well. Serum creatinine increased from 3.7-4.6 today. We will continue with hemodialysis for now. Patient continues to have good urine output. Awaiting placement. Objective - Vital Signs Vital signs: Vital Signs Temp 98.7 F 02/27/22 14:27 Pulse 67 02/27/22 14:27 Resp 20 02/27/22 14:27 BP 141/70 02/27/22 14:27 Pulse Ox 99 02/27/22 08:00 FiO2 21 02/22/22 19:45 Intake & Output 02/26/22 02/27/22 02/27/22 18:59 06:59 18:59 Intake Total 700 Output Total 1235 1500 Balance -1235 -800 Weight 58.5 kg 59 kg Intake: Hemodialysis 700 Output: Urine 1235 Uretheral (Hilario) 880 Hemodialysis 1500 Other: Voiding Method Indwelling Catheter Urinal # Voids 1 - Exam Awake, comfortable, no acute distress Patient appears euvolemic. Abdomen is soft nontender Examination lower extremity shows no significant edema STEEL LAYER exam grossly intact - Labs CBC & Chem 7: 02/26/22 06:57 02/27/22 05:17 Labs: Abnormal Lab Results - Last 24 Hours (Table) 02/26/22 02/27/22 Range/Units 19:38 05:17 Sodium 132 L (137-145) mmol/L BUN 59 H (9-20) mg/dL Creatinine 4.68 H (0.66-1.25) mg/dL Glucose 73 L (74-99) mg/dL POC Glucose (mg/dL) 115 H (70-110) mg/dL Calcium 8.0 L (8.4-10.2) mg/dL Assessment and Plan Assessment: 1. Acute kidney injury secondary to ATN with component of urinary retention. Etiology not determined , COVID Positive test on 02/18/2022. No hydronephrosis noted on kidney ultrasound. Creatinine was 0.8 in August 2021. Creatinine was over 7 this admission. Rule out GN. All serologies were negative. Started on hemodialysis 02/14/2022. Permacath on the right side. Nonoliguric. Dialysis Wednesday. Patient will need kidney biopsy as outpatient 2. Metabolic acidosis secondary to acute kidney injury. Metformin held. Improved. 3. Anemia. Iron deficiency noted. Status post IV iron and completed 02/18/2022. On Aranesp. 4. Right kidney complex cystic lesion. Urology following. 5. Urinary retention. Has Hilario catheter. On Flomax. 6. Hypertension with chronic kidney disease. Stable. 7. Acute on chronic diastolic CHF with moderate aortic and mitral regurgitation. Cardiology following. 8. Diabetes mellitus. 9. Hyperphosphatemia secondary to acute kidney injury. Phosphorus 4.5 dated 02/17/2022. 10. Volume overload. Improved with diuresis and ultrafiltration. 11. Hypomagnesemia from diuresis. On oral magnesium oxide. Better. 12. COVID-19 infection. Plan: Hemodialysis today Continue to monitor for recovery of renal function. Monitor post void residual residuals closely as Hilario catheter is discontinued.
[2022-02-27 16:48] LABS: Glucose,Whole Blood 173 mg/dL (70-110)
--- NOTE | 2022-02-27 16:48 | P.PN ---
Progress Note - Text Progress Note Date: 02/27/22 Presenting complaint: Short of breath Hospital course: This is a pleasant 76 years old male with past medical history of diabetes mellitus, hypertension, benign prostatic hypertrophy, hyperlipidemia Patient states that she has been having dyspnea for the last 3 months getting progressively worse over the last 2 weeks till yesterday he could not bear it anymore sided decided to go to [facility]. Also has been having cough with some phlegm unknown color no chest pain. Patient is complaining of from diarrhea and vomiting for the last 3 days with no abdominal pain. Yesterday he has one bout of loose bowel movement with no blood and lytes in color and he vomited twice with no blood as well. Patient denies any dysuria or urgency. He has some dizziness but no headache or weakness or numbness. However patient feels generally weak. Denies smoking alcohol or illicit tracts. It is not on home oxygen. He is Dr. Downs, metropolitan editor Dr. Cortés and urologist is Dr. Martin Patient was transferred from [facility] for dyspnea. Vitals currently showing stable blood pressure 153/95. Patient is saturating 97% on BiPAP. Prior to that he was saturating 91-93% on 6 L oxygen via nasal cannula and he was tachypneic Labs here show an unremarkable CBC except for anemia with hemoglobin 8.5. High lactic acid came back to normal Urine analysis showing 2+ protein. Troponin is elevated at 0.19 [place] [address]11 creatinine is elevated 7.1. 5 months ago creatinine was normal 0.8. Potassium currently normal formed 0.3 as well as sodium 139. Liver enzymes not significantly elevated. Chest x-ray:Opacity projecting the heart and more posteriorly correlate for pneumonia. A component of pulmonary vascular congestion may also be present. Correlate for CHF EKG showing atrial fibrillation's with controlled rate at 88, mild ST depression in V4 and V5 no other significant ST-T changes 02/16/2022: I assumed care of the patient today from [facility] hospitalist. Patient seen this morning. reclining in bed.. Short of breath. Eating fair. On 6 L nasal cannula. Patient was started on hemodialysis on February 14. Yesterday patient went into atrial flutter with a controlled rate. Back and assessment. 02/17/2022: Awake short of breath. Remains on 5 L nasal cannula. Oral intake fair. A bit tired. We'll have the patient sit up in a chair. Yesterday patient had hemodialysis catheter was replaced as it was malfunctioning. 02/18/2022: Hemodialysis today. FiO2 dropped to 3 L. 92%. Oral intake fair. PermCath placement scheduled for Wednesday. Atrial flutter rate controlled 02/19/2022: Resting in bed. For PermCath placement tomorrow. Oral intake good. Patient's come back positive for COVID 19. 02/20/2022: New PermCath placed in the right upper chest by Dr. Taryn Hilario from yesterday. Getting dialyzed today. Some blood oozing from the dialysis catheter site. Spoke to Dr. Hilario. For pressure dressing. Spoke to the block and case maker this morning. Per PT OT patient was stable to go home. At the patient review again by PT OT this afternoon. On second assessment if felt patient should go to rehab. Because of COVID places limited. Breathing better. Oral intake fair. I called patient's this evening given an update. Case manag ement will reassess on Wednesday. About rehab placement. 02/21/2022: Comfortable. Oral intake fair. Started on eliquis. Awaiting rehab placement. Cutback dexamethasone to 4 mg. 02/22/2022: Eating well. Pulse ox 95% on room air. Probable dialysis tomorrow. Looking for rehab placement tomorrow. Making urine. 02/23/2022: Dialysis today. Protocol from block and case maker. We'll go to rehab tomorrow. Oral intake fair. Cutback neck symptoms under 2 mg daily. 02/24/2022: Comfortable. In bed. Oral intake good. Discussed this block and case maker. Pending rehab authorization. 02/25/2022: Laying in bed. Comfortable. Eating well. Per PT notes yesterday patient walked 120 feet. Put OT notes patient doing well. I did. peer to peer review with patient's insurance company. Inpatient rehab was declined. Spoke to the block and case maker. Patient's family's appealing discharge. Patient making good urine. Hilario catheter. Hemodialysis today less than 1 L being removed. 02/26/2022: Laying in bed. Comfortable. Family has appealed discharge. Awaiting this decision from insurance company. Dialysis per nephrology. Oral intake between 75-100% 02/27/2022: Dialysis today. Comfortable. Oral intake good. Ambulating independently in the room. Per block and case maker not heard from Medicare about discharge appealed response. Active Medications Hydrocodone Bitart/Acetaminophen (Hydrocodone/Apap 5-325mg 1 Each Tab) 1 each PO BID PRN PRN Reason: Pain Allopurinol (Allopurinol 100 Mg Tab) 100 mg PO BID [facility] Last Admin: 02/27/22 14:49 Dose: 100 mg Alprazolam (Alprazolam 0.25 Mg Tab) 0.25 mg PO TID PRN PRN Reason: Anxiety Last Admin: 02/16/22 08:23 Dose: 0.25 mg Amlodipine Besylate (Amlodipine 5 Mg Tab) 5 mg PO BID [facility] Last Admin: 02/27/22 14:52 Dose: Not Given Apixaban (Apixaban 2.5 Mg Tablet) 2.5 mg PO BID [facility]; Protocol Last Admin: 02/27/22 14:49 Dose: 2.5 mg Aspirin (Aspirin 81 Mg) 81 mg PO DAILY [facility] Last Admin: 02/27/22 14:49 Dose: 81 mg Azelastine HCl (Azelastine 137mcg/[place]) 2 spray NASAL BID [facility] Last Admin: 02/27/22 14:51 Dose: Not Given Darbepoetin Louis (Darbepoetin Louis 40 Mcg/0.4 Ml Syringe) 40 mcg SQ Q7D [facility] Last Admin: 02/26/22 13:34 Dose: 40 mcg Famotidine (Famotidine 20 Mg Tab) 20 mg PO HS [facility] Last Admin: 02/26/22 20:14 Dose: 20 mg Glipizide (Glipizide 5 Mg Tab) 5 mg PO AC-BRKFST [facility] Last Admin: 02/27/22 06:55 Dose: 5 mg Insulin Aspart (Insulin Aspart (Novolog) 100 Unit/Ml Vial) 0 unit SQ [facility]; Protocol Last Admin: 02/27/22 14:43 Dose: Not Given Magnesium Oxide (Magnesium Oxide 400 Mg Tab) 400 mg PO DAILY [facility] Last Admin: 02/27/22 14:57 Dose: 400 mg Meclizine HCl (Meclizine 25 Mg Tab) 25 mg PO DAILY PRN PRN Reason: Vertigo Metoprolol Tartrate (Metoprolol Tartrate 50 Mg Tab) 50 mg PO BID [facility] Last Admin: 02/27/22 11:48 Dose: Not Given Naloxone HCl (Naloxone 0.4 Mg/Ml 1 Ml Vial) 0.2 mg IV Q2M PRN PRN Reason: Opioid Reversal Pravastatin Sodium (Pravastatin Sodium 40 Mg Tab) 40 mg PO HS [facility] Last Admin: 02/26/22 20:14 Dose: 40 mg Psyllium Hydrophilic Mucilloid (Psyllium Husk 100% 6 Gm Packet) 6 gm PO DAILY [facility] Last Admin: 02/27/22 14:57 Dose: 6 gm Sodium Bicarbonate (Sodium Bicarbonate Tab 650 Mg Tab) 650 mg PO BID [facility] Last Admin: 02/27/22 14:57 Dose: 650 mg Tamsulosin HCl (Tamsulosin 0.4 Mg Cap.Er.24h) 0.4 mg PO PC-BRKFST [facility] Last Admin: 02/27/22 14:49 Dose: 0.4 mg Torsemide (Torsemide 20 Mg Tab) 40 mg PO DAILY [facility] Last Admin: 02/27/22 14:52 Dose: Not Given On examination: VITAL SIGNS: Comfortable, 74, 21, 171/85, 96% room air GENERAL APPEARANCE: Reclining in bed, comfortable, Right upper chest wall PermCath Pressure dressing. HEENT: Normal external appearance of nose and ear. Oral cavity normal EYES: Pupils equal. Conjunctiva normal. NECK: JVD not raised. Mass not palpable. RESPIRATORY: Respiratory effort normal Lungs decreased breath sounds CARDIOVASCULAR: Heart sounds irregular. No edema. ABDOMEN: Soft. Liver and spleen not palpable. No tenderness. No mass palpable. PSYCHIATRY: Alert and oriented x3. Mood and affect normal. INVESTIGATIONS, reviewed in the clinical context: 02/23/2022: Potassium 4.1 BUN 104 creatinine 6.39 COVID 19 PCR: Detected Chest x-ray film personally reviewed by pr-[February 16] cardiomegaly White count 5.5 globin 9.1 platelets 2214.1 BUN 78 creatinine 6.93 TSH 1.1 Hepatitis B core total antibody: Nonreactive Previous studies: 2-D echocardiogram [June 2021]: EF 55%, moderate aortic regurgitation, moderate MR, moderate TR. Nuclear stress test June 2021: Negative Assessment and plan: -Acute kidney injury secondary to ATN with component of urinary retention. Ultrasound unremarkable. Started on hemodialysis 02/14/2022. Being followed by nephrology. For outpatient renal biopsy. PermCath placed by Dr. Taryn Hilario on February 20. -Acute hypoxic respiratory failure from CHF: : Corrected On room air -COVID 19 pneumonitis dexamethasone discontinued -Possible pneumonia, suspect gram-negative organism: Improved IV ceftriaxone,'s completed 7 days.. Previously pro-calcitonin was elevated. Chest x-ray showed some infiltrate. -CAD with a prior history of coronary bypass -Moderate aortic regurgitation, moderate MR, moderate TR followed by cardiology -Metabolic acidosis due to acute kidney injury Oral bicarbonate. Getting dialysis. -Diabetes mellitus type 2 on oral hypoglycemic, with hyperglycemia from steroids Glyburide 5 mg daily. Stop Levemir Follow Accu-Cheks -Iron deficiency anemia Received IV ferrous gluconate. -Paroxysmal atrial flutter fibrillation, currently sinus rhythm Metoprolol. Eliquis. Follow-up with Dr. Kelly Cortés outpatient -Right kidney complex cystic lesion. Being followed by urology -Acute bladder outflow obstruction secondary to enlarged prostate . Hilario catheter. Flomax -Hypertension with chronic kidney disease -Acute on chronic diastolic CHF from EF 55% Hemodialysis -Hyperphosphatemia secondary to acute kidney injury Continue dialysis -Full code Continue current medication treatment plan. Awaiting decision from insurance company about discharge that has been appealed
[2022-02-27 19:11] LABS: Glucose,Whole Blood 192 mg/dL (70-110)
[2022-02-27] MEDS: FAMOTIDINE 20 MG TAB PO SCH (22:01)
[2022-02-27] MEDS: PRAVASTATIN SODIUM 40 MG TAB PO SCH (22:01)
[2022-02-28 02:23] VITALS: RESP 17
[2022-02-28 06:11] LABS: Glucose,Whole Blood 91 mg/dL (70-110)
[2022-02-28] MEDS: INSULIN ASPART (NovoLOG) 100 UNIT/ML VIAL SQ SCH ×2 (06:15→12:00)
[2022-02-28] MEDS: glipiZIDE 5 MG TAB PO SCH (06:33)
[2022-02-28 08:04] VITALS: BP 104/51; PULSE 71; TEMP 97.2
--- NOTE | 2022-02-28 09:54 | P.PN ---
Subjective Patient is seen for follow-up for acute kidney injury currently hemodialysis dependent. Patient is status post hemodialysis yesterday. UF of 1.0 L. 24 hour urine output documented at 1.2 L. He will need to have a kidney biopsy performed as outpatient as he remains dialysis dependent. Previous creatinine was 0.8 on 09/18/2021. All serologies were negative. Patient was covid positive on initial admission to the hospital. UA had shown 2+ protein and trace blood. We will continue with hemodialysis for now. Patient continues to have good urine output. Has had straight catheterization for urine retention after Hilario catheter was removed Awaiting placement. Objective - Vital Signs Vital signs: Vital Signs Temp 97.2 F L 02/28/22 08:03 Pulse 71 02/28/22 09:30 Resp 17 02/28/22 09:30 BP 104/51 02/28/22 08:03 Pulse Ox 99 02/28/22 08:03 FiO2 21 02/22/22 19:45 Intake & Output 02/27/22 02/28/22 02/28/22 18:59 06:59 18:59 Intake Total 700 Output Total 1500 300 Balance -800 -300 Weight 59.5 kg Intake: Hemodialysis 700 Output: Urine 300 Hemodialysis 1500 Other: Voiding Method Urinal # Voids 1 - Exam Awake, comfortable, no acute distress Patient appears euvolemic. Examination of the heart S1 and S2 Examination of the lungs bilateral breath sounds are heard Abdomen is soft nontender Examination lower extremity shows no significant edema EMAIL CAMPAIGN MANAGER exam grossly intact - Labs CBC & Chem 7: 02/26/22 06:57 02/27/22 05:17 Labs: Abnormal Lab Results - Last 24 Hours (Table) 02/27/22 02/27/22 Range/Units 16:46 19:07 POC Glucose (mg/dL) 173 H 192 H (70-110) mg/dL Assessment and Plan Assessment: 1. Acute kidney injury secondary to ATN with component of urinary retention. Etiology not determined , COVID Positive test on 02/18/2022. No hydronephrosis noted on kidney ultrasound. Creatinine was 0.8 in August 2021. Creatinine was over 7 this admission. Rule out GN. All serologies were negative. Started on hemodialysis 02/14/2022. Permacath on the right side. Nonoliguric. Dialysis Wednesday. Patient will need kidney biopsy as outpatient 2. Metabolic acidosis secondary to acute kidney injury. Metformin held. Improved. 3. Anemia. Iron deficiency noted. Status post IV iron and completed 01/28. On Aranesp. 4. Right kidney complex cystic lesion. Urology following. 5. Urinary retention. Has Hilario catheter. On Flomax. 6. Hypertension with chronic kidney disease. Stable. 7. Acute on chronic diastolic CHF with moderate aortic and mitral regurgitation. Cardiology following. 8. Diabetes mellitus. 9. Hyperphosphatemia secondary to acute kidney injury. Phosphorus 4.5 dated . 10. Volume overload. Improved with diuresis and ultrafiltration. 11. Hypomagnesemia from diuresis. On oral magnesium oxide. Better. 12. COVID-19 infection. Plan: Continue to monitor post void residuals. May need to reinsertion of Hilario catheter. Check labs in a.m. Hemodialysis on 03/02/2022
[2022-02-28] MEDS: SODIUM BICARBONATE TAB 650 MG TAB PO SCH (10:33)
[2022-02-28] MEDS: MAGNESIUM OXIDE 400 MG TAB PO SCH (10:33)
[2022-02-28] MEDS: APIXABAN 2.5 MG TABLET PO SCH (10:33)
[2022-02-28] MEDS: PSYLLIUM HUSK 100% 6 GM PACKET PO SCH (10:33)
[2022-02-28] MEDS: TAMSULOSIN 0.4 MG CAP.ER.24H PO SCH (10:34)
[2022-02-28] MEDS: ASPIRIN 81 MG PO SCH (10:34)
[2022-02-28] MEDS: amLODIPine 5 MG TAB PO SCH (10:34)
[2022-02-28] MEDS: AZELASTINE 137MCG/SPRAY NASAL SCH (10:34)
[2022-02-28] MEDS: METOPROLOL TARTRATE 50 MG TAB PO SCH (10:34)
[2022-02-28] MEDS: TORSEMIDE 20 MG TAB PO SCH (10:34)
[2022-02-28] MEDS: allopurinoL 100 MG TAB PO SCH (10:34)
[2022-02-28 11:39] LABS: Glucose,Whole Blood 90 mg/dL (70-110)
--- NOTE | 2022-02-28 11:43 | P.PN ---
Subjective Progress Note Date: 02/28/22 This morning patient's residual was elevated to 398 mL's, he was subsequently able to void and repeat PVR was 70 mL. He makes limited amount of urine, but denies any voiding difficulties. Objective - Vital Signs Vital signs: Vital Signs Temp 97.2 F L 02/28/22 08:03 Pulse 71 02/28/22 09:30 Resp 17 02/28/22 09:30 BP 104/51 02/28/22 08:03 Pulse Ox 99 02/28/22 08:03 FiO2 21 02/22/22 19:45 Intake & Output 02/27/22 02/28/22 02/28/22 18:59 06:59 18:59 Intake Total 700 Output Total 1500 300 Balance -800 -300 Weight 59.5 kg Intake: Hemodialysis 700 Output: Urine 300 Hemodialysis 1500 Other: Voiding Method Urinal # Voids 1 - Constitutional General appearance: Present: no acute distress - Gastrointestinal General gastrointestinal: Present: soft. Absent: distended, tenderness - Psychiatric Psychiatric: Present: A&O x's 3 - Labs CBC & Chem 7: 02/26/22 06:57 02/27/22 05:17 Labs: Abnormal Lab Results - Last 24 Hours (Table) 02/27/22 02/27/22 Range/Units 16:46 19:07 POC Glucose (mg/dL) 173 H 192 H (70-110) mg/dL Assessment and Plan Assessment: Continue to monitor PVR, if greater than 400 mL then can undergo CIC. From urology standpoint he stable for discharge
--- NOTE | 2022-02-28 16:16 | P.DS ---
Providers Date of admission: 02/11/22 23:22 Expected date of discharge: 02/28/22 Attending physician: Raj Walton Consults: 02/11/22 23:19 Consult Physician Urgent Consulting Provider: Lindsay Rodriguez Consult Reason/Comments: acute renal failure Do you want consulting provider notified?: Yes 02/11/22 23:22 Consult Physician Urgent Consulting Provider: [facility] Consult Reason/Comments: CHF, elevated troponin Do you want consulting provider notified?: Yes 02/14/22 05:35 Consult Physician Routine Consulting Provider: Darius Costello Consult Reason/Comments: kidney mass Do you want consulting provider notified?: Yes, Notify in am 02/14/22 09:49 Consult Physician Urgent Consulting Provider: Woody Hagen Consult Reason/Comments: Urinary retention, Renal mass Do you want consulting provider notified?: Yes 02/18/22 17:29 Consult Physician Routine Consulting Provider: Rony Villalpando Consult Reason/Comments: COVID positive Do you want consulting provider notified?: Yes, Notify in am Primary care physician: Erasmo Bautistakas [facility] Course: Presenting complaint: Short of breath Hospital course: This is a pleasant 76 years old male with past medical history of diabetes mellitus, hypertension, benign prostatic hypertrophy, hyperlipidemia Patient states that she has been having dyspnea for the last 3 months getting progressively worse over the last 2 weeks till yesterday he could not bear it anymore sided decided to go to [facility]. Also has been having cough with some phlegm unknown color no chest pain. Patient is complaining of from diarrhea and vomiting for the last 3 days with no abdominal pain. Yesterday he has one bout of loose bowel movement with no blood and lytes in color and he vomited twice with no blood as well. Patient denies any dysuria or urgency. He has some dizziness but no headache or weakness or numbness. However patient feels generally weak. Denies smoking alcohol or illicit tracts. It is not on home oxygen. He is Dr. Downs, director treasurer Dr. Cortés and urologist is Dr. Martin Patient was transferred from [facility] for dyspnea. Vitals currently showing stable blood pressure 153/95. Patient is saturating 97% on BiPAP. Prior to that he was saturating 91-93% on 6 L oxygen via nasal cannula and he was tachypneic Labs here show an unremarkable CBC except for anemia with hemoglobin 8.5. High lactic acid came back to normal Urine analysis showing 2+ protein. Troponin is elevated at 0.19 [place] [address] creatinine is elevated 7.1. 5 months ago creatinine was normal 0.8. Potassium currently normal formed 0.3 as well as sodium 139. Liver enzymes not significantly elevated. Chest x-ray:Opacity projecting the heart and more posteriorly correlate for pneumonia. A component of pulmonary vascular congestion may also be present. Correlate for CHF EKG showing atrial fibrillation's with controlled rate at 88, mild ST depression in V4 and V5 no other significant ST-T changes 02/16/2022: I assumed care of the patient today from [facility] hospitalist. Patient seen this morning. reclining in bed.. Short of breath. Eating fair. On 6 L nasal cannula. Patient was started on hemodialysis on February 14. Yesterday patient went into atrial flutter with a controlled rate. Back and assessment. 02/17/2022: Awake short of breath. Remains on 5 L nasal cannula. Oral intake fair. A bit tired. We'll have the patient sit up in a chair. Yesterday patient had hemodialysis catheter was replaced as it was malfunctioning. 02/18/2022: Hemodialysis today. FiO2 dropped to 3 L. 92%. Oral intake fair. PermCath placement scheduled for Wednesday. Atrial flutter rate controlled 02/19/2022: Resting in bed. For PermCath placement tomorrow. Oral intake good. Patient's come back positive for COVID 19. 02/20/2022: New PermCath placed in the right upper chest by Dr. Taryn Hilario from yesterday. Getting dialyzed today. Some blood oozing from the dialysis catheter site. Spoke to Dr. Hilario. For pressure dressing. Spoke to the case loader operator this morning. Per PT OT patient was stable to go home. At the patient review again by PT OT this afternoon. On second assessment if felt patient should go to rehab. Because of COVID places limited. Breathing better. Oral intake fair. I called patient's this evening given an update. Case management will reassess on Wednesday. About rehab placement. 02/21/2022: Comfortable. Oral intake fair. Started on eliquis. Awaiting rehab placement. Cutback dexamethasone to 4 mg. 02/22/2022: Eating well. Pulse ox 95% on room air. Probable dialysis tomorrow. Looking for rehab placement tomorrow. Making urine. 02/23/2022: Dialysis today. Protocol from case loader operator. We'll go to rehab tomorrow. Oral intake fair. Cutback neck symptoms under 2 mg daily. 02/24/2022: Comfortable. In bed. Oral intake good. Discussed this case loader operator. Pending rehab authorization. 02/25/2022: Laying in bed. Comfortable. Eating well. Per PT notes yesterday patient walked 120 feet. Put OT notes patient doing well. I did. peer to peer review with patient's insurance company. Inpatient rehab was declined. Spoke to the case loader operator. Patient's family's appealing discharge. Patient making good urine. Hilario catheter. Hemodialysis today less than 1 L being removed. 02/26/2022: Laying in bed. Comfortable. Family has appealed discharge. Awaiting this decision from insurance company. Dialysis per nephrology. Oral intake between 75-100% 02/27/2022: Dialysis today. Comfortable. Oral intake good. Ambulating independently in the room. Per case loader operator not heard from Medicare about discharge appealed response. 02/28/2022: Outpatient dialysis has been set up on Wednesday and Wednesday. Patient doing well. Ambulating. Oral intake good. Agreeable to go home. Discussed with nurse. On examination: VITAL SIGNS: At 7.2, 71, 17, 104/51, 99% room air GENERAL APPEARANCE: Reclining in bed, comfortable, Right upper chest wall PermCath HEENT: Normal external appearance of nose and ear. Oral cavity normal EYES: Pupils equal. Conjunctiva normal. NECK: JVD not raised. Mass not palpable. RESPIRATORY: Respiratory effort normal Lungs decreased breath sounds CARDIOVASCULAR: Heart sounds irregular. No edema. ABDOMEN: Soft. Liver and spleen not palpable. No tenderness. No mass palpable. PSYCHIATRY: Alert and oriented x3. Mood and affect normal. INVESTIGATIONS, reviewed in the clinical context: 02/23/2022: Potassium 4.1 BUN 104 creatinine 6.39 COVID 19 PCR: Detected Chest x-ray film personally reviewed by me-[February 16] cardiomegaly White count 5.5 globin 9.1 platelets 2214.1 BUN 78 creatinine 6.93 TSH 1.1 Hepatitis B core total antibody: Nonreactive Previous studies: 2-D echocardiogram [June 2021]: EF 55%, moderate aortic regurgitation, moderate MR, moderate TR. Nuclear stress test June 2021: Negative Assessment and plan: -Acute kidney injury secondary to ATN with component of urinary retention. Ultrasound unremarkable. Started on hemodialysis 02/14/2022. Being followed by nephrology. For outpatient renal biopsy. PermCath placed by Dr. Taryn Hilario on February 20. Outpatient hemodialysis Wednesday and Wednesday -Acute hypoxic respiratory failure from CHF: : Corrected On room air -COVID 19 pneumonitis dexamethasone discontinued -Possible pneumonia, suspect gram-negative organism: Improved IV ceftriaxone,'s completed 7 days.. Previously pro-calcitonin was elevated. Chest x-ray showed some infiltrate. -CAD with a prior history of coronary bypass -Moderate aortic regurgitation, moderate MR, moderate TR followed by cardiology -Metabolic acidosis due to acute kidney injury Oral bicarbonate. Getting dialysis. -Diabetes mellitus type 2 on oral hypoglycemic, with hyperglycemia from steroids Glyburide 5 mg daily. Stop Levemir Follow Accu-Cheks -Iron deficiency anemia Received IV ferrous gluconate. -Paroxysmal atrial flutter fibrillation, currently sinus rhythm Metoprolol. Eliquis. Follow-up with Dr. Kelly Cortés outpatient -Right kidney complex cystic lesion. Being followed by urology -Acute bladder outflow obstruction secondary to enlarged prostate . Hilario catheter. Flomax -Hypertension with chronic kidney disease -Acute on chronic diastolic CHF from EF 55% Hemodialysis -Hyperphosphatemia secondary to acute kidney injury Continue dialysis -Full code Disposition: Home Plan - Discharge Summary Discharge Rx Participant: No New Discharge Prescriptions: New Torsemide [Demadex] 40 mg PO DAILY #30 tab Sodium Bicarbonate Tab 650 mg PO BID #60 tab glyBURIDE [Diabeta] 5 mg PO AC-BRKFST #30 tablet amLODIPine [Norvasc] 5 mg PO BID #60 tab Apixaban [Eliquis] 2.5 mg PO BID #60 tab Continue allopurinoL [Zyloprim] 100 mg PO BID Tamsulosin HCl [Flomax] 0.4 mg PO BID Potassium Chloride ER [K-Dur 10] 10 meq PO DAILY Famotidine [Pepcid] 20 mg PO DAILY Azelastine HCl [Astelin Nasal [place]] 2 spray NASAL BID Nitroglycerin Sl Tabs [Nitrostat] 0.4 mg SL Q5M PRN PRN Reason: Chest Pain HYDROcodone/APAP 5-325MG [[place] 5-325] 1 tab PO BID PRN PRN Reason: Pain Meclizine HCl [Antivert] 25 mg PO DAILY PRN PRN Reason: Vertigo Metoprolol Tartrate [Lopressor] 50 mg PO BID Aspirin EC [Ecotrin Low Dose] 81 mg PO DAILY Repaglinide [Prandin] 1 mg PO HS Pravastatin Sodium [Pravachol] 40 mg PO HS Acetaminophen [Tylenol 8 Hour] 650 mg PO Q6H PRN PRN Reason: Pain Or Fever > 100.5 Changed amLODIPine [Norvasc] 5 mg PO BID #60 tab Discontinued hydroCHLOROthiazide [Hydrodiuril] 25 mg PO DAILY metFORMIN HCL [Glucophage] 1,000 mg PO BID Discharge Medication List Acetaminophen [Tylenol 8 Hour] 650 mg PO Q6H PRN 02/11/22 [History] Aspirin EC [Ecotrin Low Dose] 81 mg PO DAILY 02/11/22 [History] Azelastine HCl [Astelin Nasal [place]] 2 spray NASAL BID 02/11/22 [History] Famotidine [Pepcid] 20 mg PO DAILY 02/11/22 [History] HYDROcodone/APAP 5-325MG [[place] 5-325] 1 tab PO BID PRN 02/11/22 [History] Meclizine HCl [Antivert] 25 mg PO DAILY PRN 02/11/22 [History] Metoprolol Tartrate [Lopressor] 50 mg PO BID 02/11/22 [History] Nitroglycerin Sl Tabs [Nitrostat] 0.4 mg SL Q5M PRN 02/11/22 [History] Potassium Chloride ER [K-Dur 10] 10 meq PO DAILY 02/11/22 [History] Pravastatin Sodium [Pravachol] 40 mg PO HS 02/11/22 [History] Repaglinide [Prandin] 1 mg PO HS 02/11/22 [History] Tamsulosin HCl [Flomax] 0.4 mg PO BID 02/11/22 [History] allopurinoL [Zyloprim] 100 mg PO BID 02/11/22 [History] Sodium Bicarbonate Tab 650 mg PO BID #60 tab 02/20/22 [Rx] Torsemide [Demadex] 40 mg PO DAILY #30 tab 02/20/22 [Rx] amLODIPine [Norvasc] 5 mg PO BID #60 tab 02/20/22 [Rx] glyBURIDE [Diabeta] 5 mg PO AC-BRKFST #30 tablet 02/20/22 [Rx] amLODIPine [Norvasc] 5 mg PO BID #60 tab 02/23/22 [Rx] Apixaban [Eliquis] 2.5 mg PO BID #60 tab 02/28/22 [Rx] Follow up Appointment(s)/Referral(s): Marisela Malhotra [NON-STAFF] - 1-2 Days [facility] [NON-STAFF] - As Needed (Chair time: Tuesdays, , and Saturdays at 12:40p.m. ) [facility] [NON-STAFF] - 1-2 Days Erasmo Downs MD [Primary Care Provider] - 1-2 days (office is closed please call for an appointment) Kevin Cortés MD [STAFF PHYSICIAN] - 03/11/22 1:45 pm Darius Costello MD [STAFF PHYSICIAN] - 02/27/22 10:40 am Rony Villalpando MD [STAFF PHYSICIAN] - 03/19/22 8:30 am Patient Instructions/Handouts: Apixaban (By mouth), Heart Failure (DC), Atrial Flutter (GEN), Acute Kidney Injury (DC)
== END 2022-02-28 14:23 | disposition home or self-care (01) | DRG 291 ==
LOC: EC 20:10 → 3SCARD 23:22 → 4SSUR 02-22 15:57
PROVIDERS: ADMIT Hospitalist; ATTEND Hospitalist
PROC: 5A09357 Assistance with Respiratory Ventilation, Less than 24 Consecutive Hours, Continuous Positive Airway Pressure (ICD-10-PCS; principal; 2022-02-11)
PROC: 5A1D70Z Performance of Urinary Filtration, Intermittent, Less than 6 Hours Per Day (ICD-10-PCS; 2022-02-14)
PROC: 06HY33Z Insertion of Infusion Device into Lower Vein, Percutaneous Approach (ICD-10-PCS; 2022-02-14)
PROC: 06PYX3Z Removal of Infusion Device from Lower Vein, External Approach (ICD-10-PCS; 2022-02-16)
PROC: 06HY33Z Insertion of Infusion Device into Lower Vein, Percutaneous Approach (ICD-10-PCS; 2022-02-16)
PROC: 3E0333Z Introduction of Anti-inflammatory into Peripheral Vein, Percutaneous Approach (ICD-10-PCS; 2022-02-19)
PROC: 02HV33Z Insertion of Infusion Device into Superior Vena Cava, Percutaneous Approach (ICD-10-PCS; 2022-02-20 08:00)
DX: I13.2 Hypertensive heart and chronic kidney disease with heart failure and with stage 5 chronic kidney disease, or end stage renal disease (principal); I50.33 Acute on chronic diastolic (congestive) heart failure; J96.01 Acute respiratory failure with hypoxia; J12.82 Pneumonia due to coronavirus disease 2019; N17.0 Acute kidney failure with tubular necrosis; U07.1 COVID-19; N18.6 End stage renal disease; T82.41XA Breakdown (mechanical) of vascular dialysis catheter, initial encounter; E87.20 Acidosis, unspecified; J44.0 Chronic obstructive pulmonary disease with (acute) lower respiratory infection; I48.3 Typical atrial flutter; D63.1 Anemia in chronic kidney disease; E11.22 Type 2 diabetes mellitus with diabetic chronic kidney disease; D50.9 Iron deficiency anemia, unspecified; E11.65 Type 2 diabetes mellitus with hyperglycemia; I08.3 Combined rheumatic disorders of mitral, aortic and tricuspid valves; E83.39 Other disorders of phosphorus metabolism; Z95.1 Presence of aortocoronary bypass graft; I25.10 Atherosclerotic heart disease of native coronary artery without angina pectoris; N40.1 Benign prostatic hyperplasia with lower urinary tract symptoms; R33.8 Other retention of urine; E78.5 Hyperlipidemia, unspecified; I49.1 Atrial premature depolarization; N32.0 Bladder-neck obstruction; T38.0X5A Adverse effect of glucocorticoids and synthetic analogues, initial encounter; F41.9 Anxiety disorder, unspecified; E83.42 Hypomagnesemia; N28.89 Other specified disorders of kidney and ureter; N20.0 Calculus of kidney; M79.89 Other specified soft tissue disorders; N28.1 Cyst of kidney, acquired; Y71.2 Prosthetic and other implants, materials and accessory cardiovascular devices associated with adverse incidents; Z99.2 Dependence on renal dialysis; Z79.82 Long term (current) use of aspirin; Z79.899 Other long term (current) drug therapy; Z79.84 Long term (current) use of oral hypoglycemic drugs; Z88.8 Allergy status to other drugs, medicaments and biological substances; Z88.1 Allergy status to other antibiotic agents
CPT/HCPCS: 36415; 36580; 51798; 71045; 71046; 76770; 77001; 80048; 80053; 81001; 82728; 83516; 83540; 83605; 83735; 83880; 84100; 84145; 84443; 84484; 85025; 85610; 85730; 86038; 86160; 86225; 86255; 86334; 86335; 86704; 86706; 86803; 87340; 87635; 90935; 93005; 94640; 94660; 94760; 96365; 96366; 96375; 96376; 99285

== ENCOUNTER 2022-02-28 18:55 | Emergency (ER) | payer MEDICARE ==
[2022-02-28 19:43] VITALS: BP 112/66; PULSE 73; RESP 18; TEMP 97.9
[2022-02-28] MEDS ORDERED: LIDOCAINE 1% INJ 10MG/ML (30 ML VIAL-PF) SQ ONE (20:50)
--- NOTE | 2022-02-28 22:13 | ED ---
General Adult HPI - General Chief complaint: Recheck/Abnormal Lab/Rx Stated complaint: Port Issues Time Seen by Provider: 02/28/22 20:15 Source: family Mode of arrival: ambulatory Limitations: no limitations - History of Present Illness Initial comments: This is a 76-year-old male who was recently discharged from the hospital at 3 PM came in today to the emergency department for bleeding around the dialysis permacath site. Stated that he was at home eating dinner when he noted that history was soaked in blood. The patient noted that he had blood oozing from the site of his permacath placement. The patient stated that he underwent dialysis earlier in the day without any issue but he did note that the bandages were changed every day 1 the hospital. Due to the patient's continued wheezing in the setting of being on blood thinners, the patient came into the emergency department for further evaluation and management. The patient denied any acute pain, weakness, lightheadedness or any other acute complaints. - Related Data Home Medications Medication Instructions Recorded Confirmed Acetaminophen [Tylenol 8 Hour] 650 mg PO Q6H PRN 02/11/22 02/11/22 Aspirin EC [Ecotrin Low Dose] 81 mg PO DAILY 02/11/22 02/11/22 Azelastine HCl [Astelin Nasal 2 spray NASAL BID 02/11/22 02/11/22 [place]] Famotidine [Pepcid] 20 mg PO DAILY 02/11/22 02/11/22 HYDROcodone/APAP 5-325MG [[place] 1 tab PO BID PRN 02/11/22 02/11/22 5-325] Meclizine HCl [Antivert] 25 mg PO DAILY PRN 02/11/22 02/11/22 Metoprolol Tartrate [Lopressor] 50 mg PO BID 02/11/22 02/11/22 Nitroglycerin Sl Tabs [Nitrostat] 0.4 mg SL Q5M PRN 02/11/22 02/11/22 Potassium Chloride ER [K-Dur 10] 10 meq PO DAILY 02/11/22 02/11/22 Pravastatin Sodium [Pravachol] 40 mg PO HS 02/11/22 02/11/22 Repaglinide [Prandin] 1 mg PO HS 02/11/22 02/11/22 Tamsulosin HCl [Flomax] 0.4 mg PO BID 02/11/22 02/11/22 allopurinoL [Zyloprim] 100 mg PO BID 02/11/22 02/11/22 Previous Rx's Medication Instructions Recorded Sodium Bicarbonate Tab 650 mg PO BID #60 tab 02/20/22 Torsemide [Demadex] 40 mg PO DAILY #30 tab 02/20/22 amLODIPine [Norvasc] 5 mg PO BID #60 tab 02/20/22 glyBURIDE [Diabeta] 5 mg PO AC-BRKFST #30 tablet 02/20/22 amLODIPine [Norvasc] 5 mg PO BID #60 tab 02/23/22 Apixaban [Eliquis] 2.5 mg PO BID #60 tab 02/28/22 Allergies Allergy/AdvReac Type Severity Reaction Status Date / Time duloxetine [From Cymbalta] Allergy Rash/Hives Verified 02/28/22 19:43 enalaprilat [From Vasotec] Allergy Unknown Verified 02/28/22 19:43 levofloxacin [From Levaquin] Allergy Rash/Hives Verified 02/28/22 19:43 saxagliptin [From Onglyza] Allergy Rash/Hives Verified 02/28/22 19:43 sulfamethoxazole Allergy Rash/Hives Verified 02/28/22 19:43 [From Bactrim] trimethoprim [From Bactrim] Allergy Rash/Hives Verified 02/28/22 19:43 Review of Systems ROS Statement: Those systems with pertinent positive or pertinent negative responses have been documented in the HPI. ROS Other: All systems not noted in ROS Statement are negative. Past Medical History Past Medical History: Atrial Fibrillation, Coronary Artery Disease (CAD), Diabetes Mellitus, Dialysis, Hypertension, Prostate Disorder, Renal Disease History of Any Multi-Drug Resistant Organisms: None Reported Past Surgical History: Cholecystectomy, Coronary Bypass/CABG Additional Past Surgical History / Comment(s): 07 ACL ligament replacement Past Anesthesia/Blood Transfusion Reactions: No Reported Reaction Past Psychological History: No Psychological Hx Reported Smoking Status: Never smoker Past Alcohol Use History: None Reported Past Drug Use History: None Reported General Exam Limitations: no limitations General appearance: alert, in no apparent distress Head exam: Present: atraumatic, normocephalic Eye exam: Present: normal appearance, PERRL Pupils: Present: normal accommodation ENT exam: Present: normal exam, normal oropharynx, mucous membranes moist Neck exam: Present: normal inspection, full ROM Respiratory exam: Present: normal lung sounds bilaterally, other (Permacath in place on the right anterior chest with bruising noted around the insertion at the skin. The bandages were soaked in blood with clots around the insertion site.) Cardiovascular Exam: Present: regular rate, normal rhythm, normal heart sounds GI/Abdominal exam: Present: soft, normal bowel sounds Extremities exam: Present: normal inspection, full ROM Back exam: Present: normal inspection, full ROM Neurological exam: Present: alert, oriented X3, CN II-XII intact Psychiatric exam: Present: normal affect, normal mood Skin exam: Present: warm, dry Course Vital Signs 02/28/22 19:41 Temperature 97.9 F Pulse Rate 73 Respiratory 18 Rate Blood Pressure 112/66 O2 Sat by Pulse 94 L Oximetry Procedures - Procedures Initial comment: The patient was placed in sterile drapes and the area around the insertion site was thoroughly cleaned. A figure 8 stitch was placed at the permacath insertion at the skin. Suture was placed with a 4-0 nylon suture. Hemostasis was achiev ed and the patient tolerated the procedure well. The patient was given 3 mLs of 1% lidocaine without epinephrine. Medical Decision Making - Medical Decision Making The patient was seen and evaluated emergency department. Physical exam, the patient was resting in bed without any acute distress. Vital signs admission were stable and within normal limits. Due to the nature of the patient's complaints, no imaging or laboratory workup was obtained at this time. The bandages around the permacath were removed and the site was cleaned and did note slight oozing from the insertion site of the skin of the permacath. The vascular surgeon, Dr. Hilario did place this permacath on 02/20/2022 and therefore she was contacted for consultation. The covering physician, Dr. Gray was contacted and did suggest placing either a "U" stitch or a figure of 8 stitch. He did recommend follow-up with Dr. Hilario within one week. The patient did have a figure of 8 stitch placed by myself and tolerated the procedure well. The patient was monitored observed for approximately one hour after the placement of the suture and did not have any further bleeding. Both the patient and his were advised that there could be some minimal oozing from the site secondary to the suture placement however they were advised to come back to the emergency department if there was significant bleeding. The patient was also advised to follow-up with his vascular surgeon in one week per the request of the on-call vascular surgeon. The patient and his were understanding of these instructions and james portions were answered. The patient had his permacath dressed and was discharged home in stable condition. Disposition Clinical Impression: Bleeding due to dialysis catheter placement Disposition: HOME SELF-CARE Condition: Stable Instructions (If sedation given, give patient instructions): Perma-cath Placement (DC) Is patient prescribed a controlled substance at d/c from ED?: No Referrals: Erasmo Downs MD [Primary Care Provider] - 1-2 days Tracey Hilario DO [STAFF PHYSICIAN] - 03/05/22 Time of Disposition: 22:00
== END 2022-02-28 22:41 | disposition home or self-care (01) ==
LOC: EC 18:55
DX: T82.838A Hemorrhage due to vascular prosthetic devices, implants and grafts, initial encounter (principal); I48.91 Unspecified atrial fibrillation; I25.10 Atherosclerotic heart disease of native coronary artery without angina pectoris; E11.9 Type 2 diabetes mellitus without complications; I12.0 Hypertensive chronic kidney disease with stage 5 chronic kidney disease or end stage renal disease; N18.6 End stage renal disease; Z99.2 Dependence on renal dialysis; Z88.8 Allergy status to other drugs, medicaments and biological substances; Z88.2 Allergy status to sulfonamides; Z79.82 Long term (current) use of aspirin; Z79.899 Other long term (current) drug therapy
CPT/HCPCS: 99283; J2001

== ENCOUNTER 2022-03-03 21:53 | Emergency (ER) | payer MEDICARE ==
[2022-03-04] MEDS ORDERED: ONDANSETRON 4 MG/2 ML VIAL IVP STA (00:12)
[2022-03-04] MEDS ORDERED: SODIUM CHLORIDE 0.9% 1,000 ML IV STA (00:12)
--- NOTE | 2022-03-04 00:13 | ED ---
Abdominal Pain HPI - General Chief Complaint: Abdominal Pain Stated Complaint: Diarrhea Time Seen by Provider: 03/04/22 00:13 Source: patient, RN notes reviewed, old records reviewed Mode of arrival: ambulatory Limitations: no limitations - History of Present Illness Initial Comments: This is a 68-year-old male to the emergency department for evaluation of severe abdominal pain, abdominal pain is severe here in the ER. Patient has difficulty with urination states he may have difficulty using the restroom and severe abdominal pain. Patient recently did have surgical port placement. No fevers no chest pain no shortness of breath MD Complaint: abdominal pain -: hour(s) Location: suprapubic Radiation: suprapubic Migration to: suprapubic Severity: severe Severity scale (1-10): 8 Consistency: constant Improves With: nothing Worsens With: nothing Associated Symptoms: nausea, diarrhea Treatments Prior to Arrival: other (0) - Related Data Home Medications Medication Instructions Recorded Confirmed Acetaminophen [Tylenol 8 Hour] 650 mg PO Q6H PRN 02/11/22 02/11/22 Aspirin EC [Ecotrin Low Dose] 81 mg PO DAILY 02/11/22 02/11/22 Azelastine HCl [Astelin Nasal 2 spray NASAL BID 02/11/22 02/11/22 [place]] Famotidine [Pepcid] 20 mg PO DAILY 02/11/22 02/11/22 HYDROcodone/APAP 5-325MG [[place] 1 tab PO BID PRN 02/11/22 02/11/22 5-325] Meclizine HCl [Antivert] 25 mg PO DAILY PRN 02/11/22 02/11/22 Metoprolol Tartrate [Lopressor] 50 mg PO BID 02/11/22 02/11/22 Nitroglycerin Sl Tabs [Nitrostat] 0.4 mg SL Q5M PRN 02/11/22 02/11/22 Potassium Chloride ER [K-Dur 10] 10 meq PO DAILY 02/11/22 02/11/22 Pravastatin Sodium [Pravachol] 40 mg PO HS 02/11/22 02/11/22 Repaglinide [Prandin] 1 mg PO HS 02/11/22 02/11/22 Tamsulosin HCl [Flomax] 0.4 mg PO BID 02/11/22 02/11/22 allopurinoL [Zyloprim] 100 mg PO BID 02/11/22 02/11/22 Previous Rx's Medication Instructions Recorded Sodium Bicarbonate Tab 650 mg PO BID #60 tab 02/20/22 Torsemide [Demadex] 40 mg PO DAILY #30 tab 02/20/22 amLODIPine [Norvasc] 5 mg PO BID #60 tab 02/20/22 glyBURIDE [Diabeta] 5 mg PO AC-BRKFST #30 tablet 02/20/22 amLODIPine [Norvasc] 5 mg PO BID #60 tab 02/23/22 Apixaban [Eliquis] 2.5 mg PO BID #60 tab 02/28/22 Allergies Allergy/AdvReac Type Severity Reaction Status Date / Time duloxetine [From Cymbalta] Allergy Rash/Hives Verified 03/03/22 22:20 enalaprilat [From Vasotec] Allergy Unknown Verified 03/03/22 22:20 levofloxacin [From Levaquin] Allergy Rash/Hives Verified 03/03/22 22:20 saxagliptin [From Onglyza] Allergy Rash/Hives Verified 03/03/22 22:20 sulfamethoxazole Allergy Rash/Hives Verified 03/03/22 22:20 [From Bactrim] trimethoprim [From Bactrim] Allergy Rash/Hives Verified 03/03/22 22:20 Review of Systems ROS Statement: Those systems with pertinent positive or pertinent negative responses have been documented in the HPI. ROS Other: All systems not noted in ROS Statement are negative. Past Medical History Past Medical History: Atrial Fibrillation, Coronary Artery Disease (CAD), Diab etes Mellitus, Dialysis, Hypertension, Prostate Disorder, Renal Disease History of Any Multi-Drug Resistant Organisms: None Reported Past Surgical History: Cholecystectomy, Coronary Bypass/CABG Additional Past Surgical History / Comment(s): ACL ligament replacement Past Anesthesia/Blood Transfusion Reactions: No Reported Reaction Past Psychological History: No Psychological Hx Reported Smoking Status: Never smoker Past Alcohol Use History: None Reported Past Drug Use History: None Reported General Exam Limitations: no limitations General appearance: alert, in no apparent distress, anxious Head exam: Present: atraumatic, normocephalic, normal inspection Eye exam: Present: normal appearance, PERRL, EOMI. Absent: scleral icterus, conjunctival injection, periorbital swelling ENT exam: Present: normal exam, mucous membranes moist Neck exam: Present: normal inspection. Absent: tenderness, meningismus, lymphadenopathy Respiratory exam: Present: normal lung sounds bilaterally. Absent: respiratory distress, wheezes, rales, rhonchi, stridor Cardiovascular Exam: Present: regular rate, normal rhythm, normal heart sounds. Absent: systolic murmur, diastolic murmur, rubs, gallop, clicks GI/Abdominal exam: Present: soft, normal bowel sounds. Absent: distended, tenderness, guarding, rebound, rigid Extremities exam: Present: normal inspection, full ROM, normal capillary refill. Absent: tenderness, pedal edema, joint swelling, calf tenderness Back exam: Present: normal inspection Neurological exam: Present: alert, oriented X3, CN II-XII intact Psychiatric exam: Present: normal affect, normal mood Skin exam: Present: warm, dry, intact, normal color. Absent: rash Course Vital Signs 03/03/22 03/04/22 22:17 00:26 Temperature 98.2 F 97.8 F Pulse Rate 67 60 Respiratory 20 16 Rate Blood Pressure 129/68 140/70 O2 Sat by Pulse 97 96 Oximetry - Reevaluation(s) Reevaluation #1: 03/04/22 01:23 Medical records reviewed Reevaluation #2: 03/04/22 02:34 Patient informed results questions answered Reevaluation #3: 03/04/22 02:34 Patient symptoms are significantly improved Medical Decision Making - Medical Decision Making 68 male to the emergency department for evaluation of severe abdominal pain. Patient is Hilario catheter placed with good and [address] abdomen and pelvis negative for acute disease a patient can be discharged home - Lab Data Result diagrams: 03/04/22 00:06 03/04/22 00:06 Lab Results 03/04/22 03/04/22 03/04/22 Range/Units 00:03 00:06 00:06 WBC 6.8 (3.8-10.6) k/uL RBC 2.33 L (4.30-5.90) m/uL Hgb 8.3 L (13.0-17.5) gm/dL Hct 24.1 L (39.0-53.0) % MCV 103.3 H (80.0-100.0) fL MCH 35.4 H (25.0-35.0) pg MCHC 34.3 (31.0-37.0) g/dL RDW 14.9 (11.5-15.5) % Plt Count 258 (150-450) k/uL MPV 8.5 Neutrophils % 72 % Lymphocytes % 18 % Monocytes % 8 % Eosinophils % 1 % Basophils % 0 % Neutrophils # 4.9 (1.3-7.7) k/uL Lymphocytes # 1.2 (1.0-4.8) k/uL Monocytes # 0.5 (0-1.0) k/uL Eosinophils # 0.0 (0-0.7) k/uL Basophils # 0.0 (0-0.2) k/uL Macrocytosis Slight Sodium 134 L (137-145) mmol/L Potassium 4.3 (3.5-5.1) mmol/L Chloride 100 (98-107) mmol/L Carbon Dioxide 24 (22-30) mmol/L Anion Gap 10 mmol/L BUN 40 H (9-20) mg/dL Creatinine 4.17 H (0.66-1.25) mg/dL Est GFR (CKD-EPI)AfAm 15 (>60 ml/min/1.73 sqM) Est GFR (CKD-EPI)NonAf 13 (>60 ml/min/1.73 sqM) Glucose 209 H (74-99) mg/dL Plasma Lactic Acid [place] (0.7-2.0) mmol/L Calcium 8.3 L (8.4-10.2) mg/dL Phosphorus (2.5-4.5) mg/dL Magnesium (1.6-2.3) mg/dL Total Bilirubin 0.4 (0.2-1.3) mg/dL AST 23 (17-59) U/L ALT 17 (4-49) U/L Alkaline Phosphatase 67 (38-126) U/L Total Protein 6.3 (6.3-8.2) g/dL Albumin 3.4 L (3.5-5.0) g/dL Amylase 129 H (30-110) U/L Lipase 375 H (23-300) U/L Urine Color Light Yellow Urine Appearance Clear (Clear) Urine pH 7.5 (5.0-8.0) Ur Specific [place] 1.009 (1.001-1.035) Urine Protein 1+ H (Negative) Urine Glucose (UA) 1+ H (Negative) Urine Ketones Negative (Negative) Urine Blood Negative (Negative) Urine Nitrite Negative (Negative) Urine Bilirubin Negative (Negative) Urine Urobilinogen <2.0 (<2.0) mg/dL Ur Leukocyte Esterase Negative (Negative) Urine RBC 1 (0-5) /hpf Urine WBC 2 (0-5) /hpf 03/04/22 03/04/22 Range/Units 00:06 00:06 WBC (3.8-10.6) k/uL RBC (4.30-5.90) m/uL Hgb (13.0-17.5) gm/dL Hct (39.0-53.0) % MCV (80.0-100.0) fL MCH (25.0-35.0) pg MCHC (31.0-37.0) g/dL RDW (11.5-15.5) % Plt Count (150-450) k/uL MPV Neutrophils % % Lymphocytes % % Monocytes % % Eosinophils % % Basophils % % Neutrophils # (1.3-7.7) k/uL Lymphocytes # (1.0-4.8) k/uL Monocytes # (0-1.0) k/uL Eosinophils # (0-0.7) k/uL Basophils # (0-0.2) k/uL Macrocytosis Sodium (137-145) mmol/L Potassium (3.5-5.1) mmol/L Chloride (98-107) mmol/L Carbon Dioxide (22-30) mmol/L Anion Gap mmol/L BUN (9-20) mg/dL Creatinine (0.66-1.25) mg/dL Est GFR (CKD-EPI)AfAm (>60 ml/min/1.73 sqM) Est GFR (CKD-EPI)NonAf (>60 ml/min/1.73 sqM) Glucose (74-99) mg/dL Plasma Lactic Acid [place] 2.0 (0.7-2.0) mmol/L Calcium (8.4-10.2) mg/dL Phosphorus 3.1 (2.5-4.5) mg/dL Magnesium 2.0 (1.6-2.3) mg/dL Total Bilirubin (0.2-1.3) mg/dL AST (17-59) U/L ALT (4-49) U/L Alkaline Phosphatase (38-126) U/L Total Protein (6.3-8.2) g/dL Albumin (3.5-5.0) g/dL Amylase (30-110) U/L Lipase (23-300) U/L Urine Color Urine Appearance (Clear) Urine pH (5.0-8.0) Ur Specific [place] (1.001-1.035) Urine Protein (Negative) Urine Glucose (UA) (Negative) Urine Ketones (Negative) Urine Blood (Negative) Urine Nitrite (Negative) Urine Bilirubin (Negative) Urine Urobilinogen (<2.0) mg/dL Ur Leukocyte Esterase (Negative) Urine RBC (0-5) /hpf Urine WBC (0-5) /hpf - Radiology Data Radiology results: report reviewed (CT head and pelvis negative for acute disease), image reviewed Disposition Clinical Impression: Acute renal failure, Abdominal pain, Urinary retention Disposition: HOME SELF-CARE Condition: Good Instructions (If sedation given, give patient instructions): Acute Urinary Retention in Women (ED) Is patient prescribed a controlled substance at d/c from ED?: No Referrals: Woody Hagen MD [STAFF PHYSICIAN] - 1-2 days Time of Disposition: 02:45
[2022-03-04 00:17] LABS: Basophils % (A) 0 %; Eosinophils % (A) 1 %; HCT 24.1 % (39.0-53.0); HGB 8.3 gm/dL (13.0-17.5); Lymphocytes # (A) 1.2 k/uL (1.0-4.8); Lymphocytes % (A) 18 %; MCH 35.4 pg (25.0-35.0); MCHC 34.3 g/dL (31.0-37.0); MCV 103.3 fL (80.0-100.0); Macrocytosis Slight; Mean Platelet Volume 8.5; Monocytes # (A) 0.5 k/uL (0-1.0); Monocytes % (A) 8 %; Neutrophils # (A) 4.9 k/uL (1.3-7.7); Neutrophils % (A) 72 %; Platelet Count 258 k/uL (150-450); RBC 2.33 m/uL (4.30-5.90); RDW 14.9 % (11.5-15.5); WBC 6.8 k/uL (3.8-10.6)
[2022-03-04 00:28] VITALS: RESP 16
[2022-03-04 00:28] LABS: Albumin 3.4 g/dL (3.5-5.0); Calcium 8.3 mg/dL (8.4-10.2); Potassium 4.3 mmol/L (3.5-5.1); Total Protein 6.3 g/dL (6.3-8.2)
[2022-03-04 00:29] LABS: Total Bilirubin 0.4 mg/dL (0.2-1.3)
[2022-03-04 00:50] LABS: Phosphorus 3.1 mg/dL (2.5-4.5)
[2022-03-04 01:02] LABS: Appearance,Urine Clear (Clear); Bilirubin,Urine Negative (Negative); Blood,Urine Negative (Negative); Color,Urine Light Yellow; Glucose,Urine (UA) 1+ (Negative); Ketones,Urine Negative (Negative); Leukocyte Esterase,Urine Negative (Negative); Nitrite,Urine Negative (Negative); PH, Urine 7.5 (5.0-8.0); Protein,Urine 1+ (Negative); RBC,Urine 1 /hpf (0-5); Specific Gravity,Urine 1.009 (1.001-1.035); Urobilinogen,Urine <2.0 mg/dL (<2.0); WBC,Urine 2 /hpf (0-5)
--- NOTE | 2022-03-04 01:32 | XR ---
EXAMINATION TYPE: XR KUB portable DATE OF EXAM: 03/04/2022 COMPARISON: 02/26/2017 HISTORY: Abdominal pain TECHNIQUE: Single view FINDINGS: There are some calculi over the right kidney. There is unusual large structure across the m id abdomen that could be a dilated transverse colon. No definite free air. IMPRESSION: Possible dilated colon is a change compared to old exam. Right renal large calculi. There are likely also left renal calculi. Recommend upright view and upright chest to include the upper ab domen.
--- NOTE | 2022-03-04 03:12 | CT ---
EXAMINATION TYPE: CT abdomen pelvis wo con DATE OF EXAM: 03/04/2022 COMPARISON: 09/03/2011 HISTORY: Urine retention CT DLP: 399.2 mGycm Automated exposure control for dose reduction was used. Images obtained from the diaphragm to the floor the pelvis with no contrast. There is some minimal atelectasis in the medial right lower lobe. No pleural effusion. Heart size is top normal. No pericardial effusion. The liver and spleen are intact. There are clips from cholecystectomy. The bile ducts are not dilated . No evidence of pancreatic mass. Stomach is intact. There is no adrenal mass. There are multiple bilateral renal calculi that measure up to 13 mm. No hyd ronephrosis. There are right-sided renal cortical cysts that measure up to 3 cm. There is 1 cm left renal cortical cyst. No hydronephrosis. Ureters are not dilated. There is no retro peritoneal adenopathy. Abdominal aorta is atheromatous. The prostate is enlarged and measures 6.3 cm. No inguinal hernia. There is minimal prostate calcification. Urinary bladder is almost empty. There is Hilario catheter in the urinary bladder. There is no mesenteric edema. No ascites or free air. No sign of a bowel obstruction. Appendix is rel atively large and measures up to 8.5 mm. No surrounding definite inflammatory process. The lumbar spine show normal alignment of the vertebra. There is hypertrophic degenerative spur forma tion. No compression fracture. There is multilevel mild facet arthropathy. The bony pelvis is intact. The hip joints are intact. IMPRESSION: Numerous bilateral renal calculi which are increased in size compared to the old exam. No obstruction seen. Borderline enlargement of the appendix. Enlarged prostate.
[2022-03-04 03:58] VITALS: BP 134/66; PULSE 84; TEMP 98
== END 2022-03-04 04:04 | disposition home or self-care (01) ==
LOC: EC 21:53
DX: N18.9 Chronic kidney disease, unspecified (principal); E11.22 Type 2 diabetes mellitus with diabetic chronic kidney disease; I13.0 Hypertensive heart and chronic kidney disease with heart failure and stage 1 through stage 4 chronic kidney disease, or unspecified chronic kidney disease; I48.91 Unspecified atrial fibrillation; I25.10 Atherosclerotic heart disease of native coronary artery without angina pectoris; I50.9 Heart failure, unspecified; Z90.49 Acquired absence of other specified parts of digestive tract; Z79.82 Long term (current) use of aspirin; Z88.1 Allergy status to other antibiotic agents; Z88.2 Allergy status to sulfonamides; Z88.8 Allergy status to other drugs, medicaments and biological substances; Z79.899 Other long term (current) drug therapy; Z79.84 Long term (current) use of oral hypoglycemic drugs; Z79.01 Long term (current) use of anticoagulants
CPT/HCPCS: 99284; 96374; 96361; 51702; 51798; 36415; 80053; 82150; 83605; 83690; 83735; 84100; 85025; 81001; 74018; 74176; J2405; 99285

== ENCOUNTER 2022-03-06 12:00 | Observation (INO) | payer MEDICARE ==
--- NOTE | 2022-03-06 12:59 | ED ---
General Adult HPI - General Chief complaint: Recheck/Abnormal Lab/Rx Stated complaint: Port repair sent by Time Seen by Provider: 03/06/22 12:46 Source: patient, RN notes reviewed Mode of arrival: ambulatory Limitations: no limitations - History of Present Illness Initial comments: Patient is a pleasant 76-year-old male presenting to the emergency Department with concern for his dialysis catheter being plugged. Patient states this was placed just a couple weeks ago. Patient states it has been running slow dialysis. Patient states today there only able to run around 20 minutes and then a clogged. Patient was advised to come here. Patient has no complaints otherwise. No pain. No dyspnea. No current bleeding since additional stitch was placed last week - Related Data Home Medications Medication Instructions Recorded Confirmed Acetaminophen [Tylenol 8 Hour] 650 mg PO Q6H PRN 02/11/22 02/11/22 Aspirin EC [Ecotrin Low Dose] 81 mg PO DAILY 02/11/22 02/11/22 Azelastine HCl [Astelin Nasal 2 spray NASAL BID 02/11/22 02/11/22 [place]] Famotidine [Pepcid] 20 mg PO DAILY 02/11/22 02/11/22 HYDROcodone/APAP 5-325MG [[place] 1 tab PO BID PRN 02/11/22 02/11/22 5-325] Meclizine HCl [Antivert] 25 mg PO DAILY PRN 02/11/22 02/11/22 Metoprolol Tartrate [Lopressor] 50 mg PO BID 02/11/22 02/11/22 Nitroglycerin Sl Tabs [Nitrostat] 0.4 mg SL Q5M PRN 02/11/22 02/11/22 Potassium Chloride ER [K-Dur 10] 10 meq PO DAILY 02/11/22 02/11/22 Pravastatin Sodium [Pravachol] 40 mg PO HS 02/11/22 02/11/22 Repaglinide [Prandin] 1 mg PO HS 02/11/22 02/11/22 Tamsulosin HCl [Flomax] 0.4 mg PO BID 02/11/22 02/11/22 allopurinoL [Zyloprim] 100 mg PO BID 02/11/22 02/11/22 Previous Rx's Medication Instructions Recorded Sodium Bicarbonate Tab 650 mg PO BID #60 tab 02/20/22 Torsemide [Demadex] 40 mg PO DAILY #30 tab 02/20/22 amLODIPine [Norvasc] 5 mg PO BID #60 tab 02/20/22 glyBURIDE [Diabeta] 5 mg PO AC-BRKFST #30 tablet 02/20/22 amLODIPine [Norvasc] 5 mg PO BID #60 tab 02/23/22 Apixaban [Eliquis] 2.5 mg PO BID #60 tab 02/28/22 Allergies Allergy/AdvReac Type Severity Reaction Status Date / Time duloxetine [From Cymbalta] Allergy Rash/Hives Verified 03/06/22 12:20 enalaprilat [From Vasotec] Allergy Unknown Verified 03/06/22 12:20 levofloxacin [From Levaquin] Allergy Rash/Hives Verified 03/06/22 12:20 saxagliptin [From Onglyza] Allergy Rash/Hives Verified 03/06/22 12:20 sulfamethoxazole Allergy Rash/Hives Verified 03/06/22 12:20 [From Bactrim] trimethoprim [From Bactrim] Allergy Rash/Hives Verified 03/06/22 12:20 Review of Systems ROS Statement: Those systems with pertinent positive or pertinent negative responses have been documented in the HPI. ROS Other: All systems not noted in ROS Statement are negative. Constitutional: Denies: fever Eyes: Denies: eye pain ENT: Denies: ear pain Respiratory: Denies: cough Cardiovascular: Denies: chest pain Endocrine: Denies: fatigue Gastrointestinal: Denies: abdominal pain Genitourinary: Denies: dysuria Musculoskeletal: Denies: back pain Skin: Denies: rash Neurological: Denies: weakness Past Medical History Past Medical History: Atrial Fibrillation, Coronary Artery Disease (CAD), Diabetes Mellitus, Dialysis, Hypertension, Prostate Disorder, Renal Disease History of Any Multi-Drug Resistant Organisms: None Reported Past Surgical History: Cholecystectomy, Coronary Bypass/CABG Additional Past Surgical History / Comment(s): ACL ligament replacement Past Anesthesia/Blood Transfusion Reactions: No Reported Reaction Past Psychological History: No Psychological Hx Reported Smoking Status: Never smoker Past Alcohol Use History: None Reported Past Drug Use History: None Reported General Exam Limitations: no limitations General appearance: alert, in no apparent distress Head exam: Present: normocephalic Eye exam: Present: normal appearance Neck exam: Present: normal inspection Respiratory exam: Present: normal lung sounds bilaterally, other (Dialysis catheter anterior right chest. No swelling or erythema or warmth or tenderness.) Cardiovascular Exam: Present: regular rate, normal rhythm GI/Abdominal exam: Present: soft. Absent: tenderness Extremities exam: Present: normal inspection Neurological exam: Present: alert Psychiatric exam: Present: normal affect, normal mood Skin exam: Present: normal color Course Vital Signs 03/06/22 12:18 Temperature 97 F L Pulse Rate 58 L Respiratory 16 Rate Blood Pressure 132/57 O2 Sat by Pulse 99 Oximetry Medical Decision Making - Medical Decision Making Case was discussed with vascular Dr. Hilario, who does recommend medical admission as well as alteplase. She recommends 2 mg administered and after with alone. They will try dialysis tomorrow. If unsuccessful they will change the dialysis catheter. Patient reevaluated and updated. Dr. Walton has been paged for admission covering Dr. Parra. Case was discussed with Dr. Walton, who will admit. Disposition Clinical Impression: Dialysis catheter clot or failure Disposition: ADMITTED IP TO THIS HOSP Is patient prescribed a controlled substance at d/c from ED?: No Time of Disposition: 13:40
[2022-03-06] MEDS ORDERED: ALTEPLASE 2 MG VIAL (CATHFLO) IV STA ×2 (13:40)
[2022-03-06] MEDS ORDERED: NALOXONE 0.4 MG/ML 1 ML VIAL IV PRN (13:41)
[2022-03-06] MEDS ORDERED: ACETAMINOPHEN TAB 325 MG TAB PO PRN ×2 (13:41→17:46)
--- NOTE | 2022-03-06 14:31 | P.GSCN ---
History of Present Illness Consult date: 03/06/22 Reason for Consult: This is a pleasant 76-year-old male who presented to the emergency department after going to dialysis today having difficulty with his treatment. He states that they had to stop after 20 minutes because it would not recommend anymore. He had his tunneled hemodialysis catheter placed by Dr. Hilario on 02/20/2022. Patient states that he did have some difficulty with dialysis following placement at his dialysis center. Patient was told to come into the emergency department for further evaluation. He denies any pain at the site, denies any bleeding or drainage. States that they did have to come back to the emergency room this Wednesday following placement on there was a loose stitch that needed to be replaced. Alteplase has been ordered. Nephrology is on consult. Patient denies any chest pain or shortness of breath. Denies any swelling in his extremities. Labs are currently pending. Review of Systems A 14 point review systems was completed all pertinent positives and negatives as stated in the HPI. Past Medical History Past Medical History: Atrial Fibrillation, Coronary Artery Disease (CAD), Diabetes Mellitus, Dialysis, Hypertension, Prostate Disorder, Renal Disease History of Any Multi-Drug Resistant Organisms: None Reported Past Surgical History: Cholecystectomy, Coronary Bypass/CABG Additional Past Surgical History / Comment(s): 07 ACL ligament replacement Past Anesthesia/Blood Transfusion Reactions: No Reported Reaction Past Psychological History: No Psychological Hx Reported Smoking Status: Never smoker Past Alcohol Use History: None Reported Past Drug Use History: None Reported Medications and Allergies Home Medications Medication Instructions Recorded Confirmed Type Acetaminophen [Tylenol 8 Hour] 650 mg PO Q6H PRN 02/11/22 03/06/22 History Aspirin EC [Ecotrin Low Dose] 81 mg PO DAILY 02/11/22 03/06/22 History Azelastine HCl [Astelin Nasal 2 spray NASAL BID 02/11/22 03/06/22 History [place]] Famotidine [Pepcid] 20 mg PO DAILY 02/11/22 03/06/22 History HYDROcodone/APAP 5-325MG [[place] 1 tab PO BID PRN 02/11/22 03/06/22 History 5-325] Meclizine HCl [Antivert] 25 mg PO DAILY PRN 02/11/22 03/06/22 History Metoprolol Tartrate [Lopressor] 50 mg PO BID 02/11/22 03/06/22 History Nitroglycerin Sl Tabs [Nitrostat] 0.4 mg SL Q5M PRN 02/11/22 03/06/22 History Potassium Chloride ER [K-Dur 10] 10 meq PO DAILY 02/11/22 03/06/22 History Pravastatin Sodium [Pravachol] 40 mg PO HS 02/11/22 03/06/22 History Repaglinide [Prandin] 1 mg PO HS 02/11/22 03/06/22 History Tamsulosin HCl [Flomax] 0.4 mg PO BID 02/11/22 03/06/22 History allopurinoL [Zyloprim] 100 mg PO BID 02/11/22 03/06/22 History Sodium Bicarbonate Tab 650 mg PO BID #60 tab 02/20/22 03/06/22 Rx Torsemide [Demadex] 40 mg PO DAILY #30 tab 02/20/22 03/06/22 Rx glyBURIDE [Diabeta] 5 mg PO AC-BRKFST #30 tablet 02/20/22 03/06/22 Rx amLODIPine [Norvasc] 5 mg PO BID #60 tab 02/23/22 03/06/22 Rx Apixaban [Eliquis] 2.5 mg PO BID #60 tab 02/28/22 03/06/22 Rx Allergies Allergy/AdvReac Type Severity Reaction Status Date / Time duloxetine [From Cymbalta] Allergy Rash/Hives Verified 03/06/22 13:51 enalaprilat [From Vasotec] Allergy Unknown Verified 03/06/22 13:51 levofloxacin [From Levaquin] Allergy Rash/Hives Verified 03/06/22 13:51 saxagliptin [From Onglyza] Allergy Rash/Hives Verified 03/06/22 13:51 sulfamethoxazole Allergy Rash/Hives Verified 03/06/22 13:51 [From Bactrim] trimethoprim [From Bactrim] Allergy Rash/Hives Verified 03/06/22 13:51 Surgical - Exam Vital Signs Temp Pulse Resp BP Pulse Ox 97 F L 58 L 16 132/57 99 03/06/22 12:18 03/06/22 12:18 03/06/22 12:18 03/06/22 12:18 03/06/22 12:18 General appearance: The patient is alert, oriented, appears in no acute distress. HET: Head is normocephalic and atraumatic. Pupils are equal and reactive. Neck: Supple without lymphadenopathy. Trachea midline. Right IJ tunneled catheter in place, no redness or drainage surrounding. No tenderness. Heart: Regular. Lungs: Equal expansion, normal respiratory effort. Abdomen: Soft, nontender, nondistended. Extremities: Normal skin color and turgor. No cyanosis, rash, ulceration, clubbing, or edema. Neurological: No focal deficits. Strength and sensation are grossly intact. Assessment and Plan Assessment: 1. Malfunctioning tunneled hemodialysis catheter 2. End-stage renal disease requiring hemodialysis Plan: 1. Cathflo ordered 2. Renal diet, nothing by mouth after midnight 3. Recommend hemodialysis first thing in the morning if labs are stable today 4. Continue with recommendations for dialysis per nephrology 5. If unable to get dialysis tomorrow, plan will be for tunneled catheter exchange or replacement 6. Primary medicine team for medical management Thank you for this consultation, we will continue to follow. The impression and plan of care has been dictated as directed. Dr. Hilario I performed a history and examination of this patient, discussed the same with the dictator. I agree with the dictator's note ,documented as a scribe. Any additional findings or plans will be noted.
[2022-03-06 15:10] LABS: Basophils % (A) 0 %; Eosinophils % (A) 1 %; HCT 23.9 % (39.0-53.0); HGB 7.8 gm/dL (13.0-17.5); Lymphocytes # (A) 0.8 k/uL (1.0-4.8); Lymphocytes % (A) 12 %; MCH 33.9 pg (25.0-35.0); MCHC 32.6 g/dL (31.0-37.0); Macrocytosis Moderate; Mean Platelet Volume 8.5; Monocytes # (A) 0.3 k/uL (0-1.0); Monocytes % (A) 5 %; Neutrophils # (A) 5.2 k/uL (1.3-7.7); Neutrophils % (A) 80 %; Platelet Count 233 k/uL (150-450); RDW 15.5 % (11.5-15.5); WBC 6.5 k/uL (3.8-10.6)
[2022-03-06 15:23] LABS: Partial Thromboplastin Time 29.2 sec (22.0-30.0); Prothrombin Time 10.5 sec (9.0-12.0)
[2022-03-06 15:26] LABS: Albumin 3.3 g/dL (3.5-5.0); Calcium 8.6 mg/dL (8.4-10.2); Magnesium 1.8 mg/dL (1.6-2.3); Phosphorus 3.2 mg/dL (2.5-4.5); Potassium 3.6 mmol/L (3.5-5.1); Total Bilirubin 0.3 mg/dL (0.2-1.3); Total Protein 6.1 g/dL (6.3-8.2)
[2022-03-06 17:10] LABS: Glucose,Whole Blood 46 mg/dL (70-110)
[2022-03-06 17:32] LABS: Glucose,Whole Blood 64 mg/dL (70-110)
[2022-03-06 17:42] LABS: Glucose,Whole Blood 73 mg/dL (70-110)
[2022-03-06] MEDS ORDERED: HYDROcodone/APAP 5-325MG 1 EACH TAB PO PRN (17:46)
[2022-03-06] MEDS ORDERED: NITROGLYCERIN SL TABS 0.4 MG TAB SUBLINGUAL PRN (17:46)
[2022-03-06] MEDS ORDERED: DEXTROSE 50% SYRINGE 50 ML IVP PRN (17:47)
[2022-03-06] MEDS: INSULIN ASPART (NovoLOG) 100 UNIT/ML VIAL SQ SCH (18:08)
[2022-03-06 19:58] LABS: Glucose,Whole Blood 87 mg/dL (70-110)
[2022-03-06] MEDS: TAMSULOSIN 0.4 MG CAP.ER.24H PO SCH (20:59)
[2022-03-06] MEDS: AZELASTINE 137MCG/SPRAY NASAL SCH (20:59)
[2022-03-06] MEDS ORDERED: REPAGLINIDE 1 MG TAB PO SCH (21:00)
[2022-03-06] MEDS ORDERED: PRAVASTATIN SODIUM 40 MG TAB PO SCH (21:00)
[2022-03-06] MEDS ORDERED: SODIUM BICARBONATE TAB 650 MG TAB PO SCH (21:00)
[2022-03-06] MEDS: amLODIPine 5 MG TAB PO SCH (21:00)
[2022-03-06] MEDS: allopurinoL 100 MG TAB PO SCH (21:00)
[2022-03-06] MEDS: METOPROLOL TARTRATE 50 MG TAB PO SCH (21:00)
[2022-03-07 00:56] LABS: Glucose,Whole Blood 40 mg/dL (70-110)
[2022-03-07 01:13] LABS: Glucose,Whole Blood 39 mg/dL (70-110)
[2022-03-07 01:37] LABS: Glucose,Whole Blood 80 mg/dL (70-110)
[2022-03-07] MEDS: INSULIN ASPART (NovoLOG) 100 UNIT/ML VIAL SQ SCH ×2 (06:21→16:17)
[2022-03-07] MEDS: DEXTROSE 50% SYRINGE 50 ML IVP PRN ×2 (06:24→10:34)
[2022-03-07 06:46] LABS: Glucose,Whole Blood 45 mg/dL (70-110)
[2022-03-07 07:06] LABS: Glucose,Whole Blood 180 mg/dL (70-110)
[2022-03-07] MEDS ORDERED: glipiZIDE 10 MG TAB PO SCH (07:30)
[2022-03-07] MEDS ORDERED: TORSEMIDE 20 MG TAB PO SCH (09:00)
[2022-03-07] MEDS ORDERED: FAMOTIDINE 20 MG TAB PO SCH (09:00)
[2022-03-07] MEDS ORDERED: ASPIRIN 81 MG PO SCH (09:00)
[2022-03-07 10:15] LABS: Glucose,Whole Blood 45 mg/dL (70-110)
[2022-03-07 10:31] LABS: Glucose,Whole Blood 48 mg/dL (70-110)
--- NOTE | 2022-03-07 11:21 | P.NPCON ---
History of Present Illness - Reason for Consult acute renal failure - History of Present Illness Reason for consultation: Acute kidney injury History of present illness: Patient is a 76-year-old male seen in renal consultation for acute kidney injury, currently hemodialysis dependent. Patient was started on hemodialysis in January 2022 while he was admitted at this facility. At that time his creatinine was over 7 and did not improve despite IV hydration. He was noted to have obstructive uropathy and Hilario catheter was placed. He follows with urology outpatient. He is nonoliguric. Patient in for hemodialysis yesterday but only received about 20 minutes of treatment due to malfunctioning dialysis catheter. He was subsequently sent to the hospital. Cathflo was put in the catheter yesterday and is scheduled to undergo dialysis today. He's resting in bed. Denies chest pain or shortness of breath. No fever or chills. No vomiting or diarrhea. Hemodynamically stable. Vital signs are stable. General: Awake. No acute distress. HEENT: Head exam is unremarkable. LUNGS: Breath sounds decreased. HEART: Rate and Rhythm are regular. ABDOMEN: Soft, no distention. EXTREMITITES: No edema. Past Medical History Past Medical History: Atrial Fibrillation, Coronary Artery Disease (CAD), Diabetes Mellitus, Dialysis, Hypertension, Prostate Disorder, Renal Disease History of Any Multi-Drug Resistant Organisms: None Reported Past Surgical History: Cholecystectomy, Coronary Bypass/CABG Additional Past Surgical History / Comment(s): ACL ligament replacement Past Anesthesia/Blood Transfusion Reactions: No Reported Reaction Past Psychological History: No Psychological Hx Reported Smoking Status: Never smoker Past Alcohol Use History: None Reported Past Drug Use History: None Reported Medications and Allergies Home Medications Medication Instructions Recorded Confirmed Type Acetaminophen [Tylenol 8 Hour] 650 mg PO Q6H PRN 02/11/22 03/06/22 History Aspirin EC [Ecotrin Low Dose] 81 mg PO DAILY 02/11/22 03/06/22 History Azelastine HCl [Astelin Nasal 2 spray NASAL BID 02/11/22 03/06/22 History [place]] Famotidine [Pepcid] 20 mg PO DAILY 02/11/22 03/06/22 History HYDROcodone/APAP 5-325MG [[place] 1 tab PO BID PRN 02/11/22 03/06/22 History 5-325] Meclizine HCl [Antivert] 25 mg PO DAILY PRN 02/11/22 03/06/22 History Metoprolol Tartrate [Lopressor] 50 mg PO BID 02/11/22 03/06/22 History Nitroglycerin Sl Tabs [Nitrostat] 0.4 mg SL Q5M PRN 02/11/22 03/06/22 History Potassium Chloride ER [K-Dur 10] 10 meq PO DAILY 02/11/22 03/06/22 History Pravastatin Sodium [Pravachol] 40 mg PO HS 02/11/22 03/06/22 History Repaglinide [Prandin] 1 mg PO HS 02/11/22 03/06/22 History Tamsulosin HCl [Flomax] 0.4 mg PO BID 02/11/22 03/06/22 History allopurinoL [Zyloprim] 100 mg PO BID 02/11/22 03/06/22 History Sodium Bicarbonate Tab 650 mg PO BID #60 tab 02/20/22 03/06/22 Rx Torsemide [Demadex] 40 mg PO DAILY #30 tab 02/20/22 03/06/22 Rx glyBURIDE [Diabeta] 5 mg PO AC-BRKFST #30 tablet 02/20/22 03/06/22 Rx amLODIPine [Norvasc] 5 mg PO BID #60 tab 02/23/22 03/06/22 Rx Apixaban [Eliquis] 2.5 mg PO BID #60 tab 02/28/22 03/06/22 Rx Allergies Allergy/AdvReac Type Severity Reaction Status Date / Time duloxetine [From Cymbalta] Allergy Rash/Hives Verified 03/06/22 13:51 enalaprilat [From Vasotec] Allergy Unknown Verified 03/06/22 13:51 levofloxacin [From Levaquin] Allergy Rash/Hives Verified 03/06/22 13:51 saxagliptin [From Onglyza] Allergy Rash/Hives Verified 03/06/22 13:51 sulfamethoxazole Allergy Rash/Hives Verified 03/06/22 13:51 [From Bactrim] trimethoprim [From Bactrim] Allergy Rash/Hives Verified 03/06/22 13:51 Physical Exam Vitals: Vital Signs Temp Pulse Pulse Resp BP BP Pulse Ox 03/07/22 07:55 97.9 F 55 L 18 145/68 99 03/07/22 03:54 98.2 F 62 17 126/67 97 03/06/22 19:58 98.1 F 75 17 144/74 100 03/06/22 16:15 97.9 F 58 L 16 157/67 98 03/06/22 15:55 97.8 F 62 18 127/66 97 03/06/22 12:18 97 F L 58 L 16 132/57 99 Intake and Output 03/06/22 03/07/22 03/07/22 22:59 06:59 14:59 Intake Total 118 240 Output Total 360 800 Balance -242 -800 240 Intake: Oral 118 240 Output: Urine 360 800 Other: Voiding Method Indwelling Catheter Indwelling Catheter Weight 63.503 kg Results - Lab Results Most recent lab results Calcium 8.6 mg/dL (8.4-10.2) 03/06/22 14:57 Phosphorus 3.2 mg/dL (2.5-4.5) 03/06/22 14:57 Magnesium 1.8 mg/dL (1.6-2.3) 03/06/22 14:57 03/06/22 14:57 03/06/22 14:57 Assessment and Plan Plan: Assessment: 1. Acute kidney injury, currently hemodialysis dependent. Started on hemodialysis in January 2022. UA is fairly benign. Serologies were all negative in January 2022. Etiology is likely to be obstructive uropathy and underlying diabetic kidney disease. Patient was also called with positive during his January 2022 admission. No hydronephrosis was noted on kidney ultrasound. Creatinine in August 2021 was 0.8. 2. Malfunctioning permacath. Being followed by vascular surgery. 3. Diabetes mellitus. 4. Urinary retention. Has a chronic Hilario catheter. On Flomax. Follows with urology outpatient. 5. Acute on chronic diastolic CHF with moderate aortic and mitral regurgitation. 6. Benign hypertension. Stable. 7. Anemia. Rule out iron deficiency. Plan: Hemodialysis today. If catheter not working despite cathflo, it will need to be exchanged. Check iron studies. Stop bicarb. Monitor for renal recovery outpatient. Will also schedule for kidney biopsy outpatient for definitive diagnosis. Thank you for the consultation. I will continue to follow the patient with you during his hospital stay.
[2022-03-07 11:29] LABS: Glucose,Whole Blood 136 mg/dL (70-110)
[2022-03-07 12:00] LABS: African American GFR (CKD) 14.3 (60.0-200.0); Anion Gap 12.5 mmol/L (10.00-18.00); BUN/Creat Ratio 10.12 Ratio (12.00-20.00); Blood Urea Nitrogen 43.3 mg/dL (9.0-27.0); Calcium 8.5 mg/dL (8.7-10.3); Carbon Dioxide 25.8 mmol/L (20.0-27.5); Non-African American GFR(CKD) 12.4 (60.0-200.0); Potassium 3.6 mmol/L (3.5-5.5)
[2022-03-07 12:43] LABS: Glucose,Whole Blood 101 mg/dL (70-110)
--- NOTE | 2022-03-07 14:11 | P.HPIM ---
History of Present Illness H&P Date: 03/07/22 Chief Complaint: Dialysis catheter malfunction This is a pleasant 76 years old male with past medical history of diabetes mellitus, hypertension, benign prostatic hypertrophy, hyperlipidemia, atrial flutter. PCP Dr. Erasmo Downs. Physician Liaison Dr. Kelly Chambers, urologist Dr. Martin. Started on hemodialysis on 02/14/2022. Patient had his last good dialysis on Wednesday. On Wednesday received only 20 minutes of hemodialysis due to malfunction of the dialysis catheter. Cathflo(a lteplase) was put in by Dr. Hilario yesterday evening. This afternoon dialysis will be attempted. If unsuccessful then dialysis catheter will be replaced. No fever no chills. Appetite fair. No chest pain. Review of systems: GEN.: Tired EYES: None HEENT: None NECK: None RESPIRATORY: None CARDIOVASCULAR: None GASTROINTESTINAL: None GENITOURINARY: None MUSCULOSKELETAL: None LYMPHATICS: None HEMATOLOGICAL: None PSYCHIATRY: None NEUROLOGICAL: None Past medical history to include: Hemodialysis started January 2022, COVID-19, CAD is a prior history of bypass, moderate aortic regurgitation, moderate MR, moderate TR, diabetes mellitus type 2, iron deficiency anemia, paroxysmal atrial flutter, right kidney complex cystic lesion, bladder outflow obstruction secondary to enlarged prostate, hy pertension, CHF EF 35%, Social history: Does not smoke or drink alcohol. Physical examination: VITAL SIGNS: 97.9, 55, 18, 145/68, 99% room air GENERAL: BMI 22.6, reclining in bed, awake, comfortable. EYES: Pupils equal. Conjunctiva normal. HEENT: External appearance of nose and ears normal, oral cavity grossly normal. NECK: JVD not raised; masses not palpable. Right IJ dialysis catheter HEART: First and second heart sounds are normal; no edema. LUNGS: Respiratory rate normal; clear to auscultation. ABDOMEN: Soft, nontender, liver spleen not palpable, no masses palpable. PSYCH: Alert and oriented x3; mood and affect normal. MUSCULOSKELETAL:No Clubbing/cyanosis;muscles-grossly intact NEUROLOGICAL: Cranial nerves grossly intact; no facial asymmetry, power and sensation grossly intact. LYMPHATICS: No lymph nodes palpable in the axilla and neck INVESTIGATIONS, reviewed in the clinical context: White count 6.5 hemoglobin 7.8 platelets 233 potassium 3.6 BUN 44 creatinine 4 .05 Previous studies: 2-D echocardiogram June 2021: EF 55%, moderate aortic regurgitation, moderate MR, moderate TR. Nuclear stress test June 2021: Negative Assessment and plan: -Dialysis catheter malfunction. Received alteplase yesterday evening. Trial of dialysis this afternoon. Follow with nephrology. -CAD with a prior history of coronary bypass Aspirin, Lopressor, Pravachol, -Moderate aortic regurgitation, moderate MR, moderate TR -Metabolic acidosis due to acute kidney injury Oral bicarbonate. -Diabetes mellitus type 2 on oral hypoglycemic, with hypoglycemia from being nothing by mouth Hold glyburide -Iron deficiency anemia -Paroxysmal atrial flutter fibrillation, currently sinus rhythm Metoprolol. Eliquis. Follow-up with Dr. Kelly Cortés outpatient -Right kidney complex cystic lesion. Being followed by urology -Acute bladder outflow obstruction secondary to enlarged prostate . Hilario catheter. Flomax -Hypertension with chronic kidney disease -Acute on chronic diastolic CHF from EF 55% Hemodialysis -Hyperphosphatemia secondary to acute kidney injury Continue dialysis -Full code Home medications resumed. Hold glyburide. 4 trial of hemodialysis today. If malfunction continues of the dialysis catheter then to replace dialysis catheter and then do dialysis today. Being followed by Dr. Hilario from vascular and Dr. Luu from nephrology. Discussed with patient. Past Medical History Past Medical History: Atrial Fibrillation, Coronary Artery Disease (CAD), Diabetes Mellitus, Dialysis, Hypertension, Prostate Disorder, Renal Disease History of Any Multi-Drug Resistant Organisms: None Reported Past Surgical History: Cholecystectomy, Coronary Bypass/CABG Additional Past Surgical History / Comment(s): ACL ligament replacement Past Anesthesia/Blood Transfusion Reactions: No Reported Reaction Past Psychological History: No Psychological Hx Reported Smoking Status: Never smoker Past Alcohol Use History: None Reported Past Drug Use History: None Reported Medications and Allergies Home Medications Medication Instructions Recorded Confirmed Type Acetaminophen [Tylenol 8 Hour] 650 mg PO Q6H PRN 02/11/22 03/06/22 History Aspirin EC [Ecotrin Low Dose] 81 mg PO DAILY 02/11/22 03/06/22 History Azelastine HCl [Astelin Nasal 2 spray NASAL BID 02/11/22 03/06/22 History [place]] Famotidine [Pepcid] 20 mg PO DAILY 02/11/22 03/06/22 History HYDROcodone/APAP 5-325MG [[place] 1 tab PO BID PRN 02/11/22 03/06/22 History 5-325] Meclizine HCl [Antivert] 25 mg PO DAILY PRN 02/11/22 03/06/22 History Metoprolol Tartrate [Lopressor] 50 mg PO BID 02/11/22 03/06/22 History Nitroglycerin Sl Tabs [Nitrostat] 0.4 mg SL Q5M PRN 02/11/22 03/06/22 History Potassium Chloride ER [K-Dur 10] 10 meq PO DAILY 02/11/22 03/06/22 History Pravastatin Sodium [Pravachol] 40 mg PO HS 02/11/22 03/06/22 History Repaglinide [Prandin] 1 mg PO HS 02/11/22 03/06/22 History Tamsulosin HCl [Flomax] 0.4 mg PO BID 02/11/22 03/06/22 History allopurinoL [Zyloprim] 100 mg PO BID 02/11/22 03/06/22 History Sodium Bicarbonate Tab 650 mg PO BID #60 tab 02/20/22 03/06/22 Rx Torsemide [Demadex] 40 mg PO DAILY #30 tab 02/20/22 03/06/22 Rx glyBURIDE [Diabeta] 5 mg PO AC-BRKFST #30 tablet 02/20/22 03/06/22 Rx amLODIPine [Norvasc] 5 mg PO BID #60 tab 02/23/22 03/06/22 Rx Apixaban [Eliquis] 2.5 mg PO BID #60 tab 02/28/22 03/06/22 Rx Allergies Allergy/AdvReac Type Severity Reaction Status Date / Time duloxetine [From Cymbalta] Allergy Rash/Hives Verified 03/06/22 13:51 enalaprilat [From Vasotec] Allergy Unknown Verified 03/06/22 13:51 levofloxacin [From Levaquin] Allergy Rash/Hives Verified 03/06/22 13:51 saxagliptin [From Onglyza] Allergy Rash/Hives Verified 03/06/22 13:51 sulfamethoxazole Allergy Rash/Hives Verified 03/06/22 13:51 [From Bactrim] trimethoprim [From Bactrim] Allergy Rash/Hives Verified 03/06/22 13:51 Physical Exam Vitals: Vital Signs Temp Pulse Pulse Resp BP BP Pulse Ox 12/10/22 07:55 97.9 F 55 L 18 145/68 99 03/07/22 03:54 98.2 F 62 17 126/67 97 03/06/22 19:58 98.1 F 75 17 144/74 100 03/06/22 16:15 97.9 F 58 L 16 157/67 98 03/06/22 15:55 97.8 F 62 18 127/66 97 03/06/22 12:18 97 F L 58 L 16 132/57 99 Intake and Output 03/06/22 03/07/22 03/07/22 22:59 06:59 14:59 Intake Total 118 240 Output Total 360 800 Balance -242 -800 240 Intake: Oral 118 240 Output: Urine 360 800 Other: Voiding Method Indwelling Catheter Indwelling Catheter Weight 63.503 kg Results CBC & Chem 7: 03/06/22 14:57 03/07/22 06:40 Labs: Abnormal Lab Results - Last 24 Hours (Table) 03/06/22 03/06/22 03/06/22 Range/Units 14:57 14:57 17:09 RBC 2.30 L (4.30-5.90) m/uL Hgb 7.8 L (13.0-17.5) gm/dL Hct 23.9 L (39.0-53.0) % MCV 104.0 H (80.0-100.0) fL Lymphocytes # 0.8 L (1.0-4.8) k/uL BUN 44 H (9-20) mg/dL Creatinine 4.05 H (0.66-1.25) mg/dL POC Glucose (mg/dL) 46 L (70-110) mg/dL Total Protein 6.1 L (6.3-8.2) g/dL Albumin 3.3 L (3.5-5.0) g/dL 03/06/22 03/07/22 03/07/22 Range/Units 17:31 00:54 01:12 RBC (4.30-5.90) m/uL Hgb (13.0-17.5) gm/dL Hct (39.0-53.0) % MCV (80.0-100.0) fL Lymphocytes # (1.0-4.8) k/uL BUN (9-20) mg/dL Creatinine (0.66-1.25) mg/dL POC Glucose (mg/dL) 64 L 40 L 39 L (70-110) mg/dL Total Protein (6.3-8.2) g/dL Albumin (3.5-5.0) g/dL 03/07/22 03/07/22 03/07/22 Range/Units 06:42 06:54 10:13 RBC (4.30-5.90) m/uL Hgb (13.0-17.5) gm/dL Hct (39.0-53.0) % MCV (80.0-100.0) fL Lymphocytes # (1.0-4.8) k/uL BUN (9-20) mg/dL Creatinine (0.66-1.25) mg/dL POC Glucose (mg/dL) 45 L 180 H 45 L (70-110) mg/dL Total Protein (6.3-8.2) g/dL Albumin (3.5-5.0) g/dL 03/07/22 Range/Units 10:30 RBC (4.30-5.90) m/uL Hgb (13.0-17.5) gm/dL Hct (39.0-53.0) % MCV (80.0-100.0) fL Lymphocytes # (1.0-4.8) k/uL BUN (9-20) mg/dL Creatinine (0.66-1.25) mg/dL POC Glucose (mg/dL) 48 L (70-110) mg/dL Total Protein (6.3-8.2) g/dL Albumin (3.5-5.0) g/dL Thrombosis Risk Factor Assmnt - Choose All That Apply Any of the Below Risk Factors Present?: No Other Risk Factors: Yes Each Risk Factor Represents 2 Points: Age 61-74 years Other congenital or acquired thrombophilia - If yes, enter type in comment: No Thrombosis Risk Factor Assessment Total Risk Factor Score: 2 Thrombosis Risk Factor Assessment Level: Low Risk
--- NOTE | 2022-03-07 14:49 | P.PN ---
Subjective Progress Note Date: 03/07/22 Patient seen and examined. TPA removed from catheter. Patient currently on dialysis and functioning well at highest velocities. No acute distress. Catheters clean dry and intact. Resting comfortably. End-stage renal disease, previous dialysis malfunction currently working well without issue per dialysis Okay for discharge after dialysis from my standpoint. Follow-up in the office for further workup and evaluation and regards to surgical planning for access. Objective - Vital Signs Vital signs: Vital Signs Temp 97.9 F 03/07/22 07:55 Pulse 55 L 03/07/22 07:55 Resp 18 03/07/22 07:55 BP 145/68 03/07/22 07:55 Pulse Ox 99 03/07/22 07:55 FiO2 Intake & Output 03/06/22 03/07/22 03/07/22 18:59 06:59 18:59 Intake Total 118 330 Output Total 360 800 Balance -242 -800 330 Weight 63.503 kg Intake: Oral 118 330 Output: Urine 360 800 Other: Voiding Method Indwelling Catheter Indwelling Catheter - Labs CBC & Chem 7: 03/06/22 14:57 03/07/22 06:40 Labs: Abnormal Lab Results - Last 24 Hours (Table) 03/06/22 03/06/22 03/06/22 Range/Units 14:57 14:57 17:09 RBC 2.30 L (4.30-5.90) m/uL Hgb 7.8 L (13.0-17.5) gm/dL Hct 23.9 L (39.0-53.0) % MCV 104.0 H (80.0-100.0) fL Lymphocytes # 0.8 L (1.0-4.8) k/uL BUN 44 H (9-20) mg/dL Creatinine 4.05 H (0.66-1.25) mg/dL Est GFR (CKD-EPI)AfAm (60.0-200.0) Est GFR (CKD-EPI)NonAf (60.0-200.0) BUN/Creatinine Ratio (12.00-20.00) Ratio Glucose (70-110) mg/dL POC Glucose (mg/dL) 46 L (70-110) mg/dL Calcium (8.7-10.3) mg/dL Total Protein 6.1 L (6.3-8.2) g/dL Albumin 3.3 L (3.5-5.0) g/dL 03/06/22 03/07/22 03/07/22 Range/Units 17:31 00:54 01:12 RBC (4.30-5.90) m/uL Hgb (13.0-17.5) gm/dL Hct (39.0-53.0) % MCV (80.0-100.0) fL Lymphocytes # (1.0-4.8) k/uL BUN (9-20) mg/dL Creatinine (0.66-1.25) mg/dL Est GFR (CKD-EPI)AfAm (60.0-200.0) Est GFR (CKD-EPI)NonAf (60.0-200.0) BUN/Creatinine Ratio (12.00-20.00) Ratio Glucose (70-110) mg/dL POC Glucose (mg/dL) 64 L 40 L 39 L (70-110) mg/dL Calcium (8.7-10.3) mg/dL Total Protein (6.3-8.2) g/dL Albumin (3.5-5.0) g/dL 03/07/22 03/07/22 03/07/22 Range/Units 06:40 06:42 06:54 RBC (4.30-5.90) m/uL Hgb (13.0-17.5) gm/dL Hct (39.0-53.0) % MCV (80.0-100.0) fL Lymphocytes # (1.0-4.8) k/uL BUN 43.3 H (9-20) mg/dL Creatinine 4.3 H (0.66-1.25) mg/dL Est GFR (CKD-EPI)AfAm 14.3 L (60.0-200.0) Est GFR (CKD-EPI)NonAf 12.4 L (60.0-200.0) BUN/Creatinine Ratio 10.12 L (12.00-20.00) Ratio Glucose 40 L* (70-110) mg/dL POC Glucose (mg/dL) 45 L 180 H (70-110) mg/dL Calcium 8.5 L (8.7-10.3) mg/dL Total Protein (6.3-8.2) g/dL Albumin (3.5-5.0) g/dL 03/07/22 03/07/22 03/07/22 Range/Units 10:13 10:30 11:12 RBC (4.30-5.90) m/uL Hgb (13.0-17.5) gm/dL Hct (39.0-53.0) % MCV (80.0-100.0) fL Lymphocytes # (1.0-4.8) k/uL BUN (9-20) mg/dL Creatinine (0.66-1.25) mg/dL Est GFR (CKD-EPI)AfAm (60.0-200.0) Est GFR (CKD-EPI)NonAf (60.0-200.0) BUN/Creatinine Ratio (12.00-20.00) Ratio Glucose (70-110) mg/dL POC Glucose (mg/dL) 45 L 48 L 136 H (70-110) mg/dL Calcium (8.7-10.3) mg/dL Total Protein (6.3-8.2) g/dL Albumin (3.5-5.0) g/dL
[2022-03-07 14:51] VITALS: BP 145/74; PULSE 65; RESP 16; TEMP 97.4
[2022-03-07] MEDS: METOPROLOL TARTRATE 50 MG TAB PO SCH (16:16)
[2022-03-07] MEDS: allopurinoL 100 MG TAB PO SCH (16:16)
[2022-03-07] MEDS: TAMSULOSIN 0.4 MG CAP.ER.24H PO SCH (16:16)
[2022-03-07] MEDS: AZELASTINE 137MCG/SPRAY NASAL SCH (16:16)
[2022-03-07] MEDS: amLODIPine 5 MG TAB PO SCH (16:16)
--- NOTE | 2022-03-07 16:25 | P.DS ---
Providers Date of admission: 03/06/22 13:41 Expected date of discharge: 03/07/22 Attending physician: Raj Walton Consults: 03/06/22 13:41 Consult Physician Routine Consulting Provider: Tracey Hilario Consult Reason/Comments: Dialysis catheter malfunction Do you want consulting provider notified?: Already Contacted Consult Physician Routine Consulting Provider: Benja Luu Consult Reason/Comments: Dialysis on 03/07 needed Do you want consulting provider notified?: Yes Primary care physician: Erasmo Downs [facility] Hospital Course: Chief Complaint: Dialysis catheter malfunction This is a pleasant 76 years old male with past medical history of diabetes mellitus, hypertension, benign prostatic hypertrophy, hyperlipidemia, atrial flutter. PCP Dr. Erasmo Downs. 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 Kelly Chambers, urologist Dr. Martin. Started on hemodialysis on 02/14/2022. Patient had his last good dialysis on Wednesday. On Wednesday received only 20 minutes of hemodialysis due to malfunction of the dialysis catheter. Cathflo(alteplase) was put in by Dr. Hilario yesterday evening. This afternoon dialysis will be attempted. If unsuccessful then dialysis catheter will be replaced. No fever no chills. Appetite fair. No chest pain. Later this afternoon patient has successful dialysis. He'll be returning home. Past medical history to include: Hemodialysis started January 2022, COVID-, CAD is a prior history of bypass, moderate aortic regurgitation, moderate MR, moderate TR, diabetes mellitus type 2, iron deficiency anemia, paroxysmal atrial flutter, right kidney complex cystic lesion, bladder outflow obstruction secondary to enlarged prostate, hypertension, CHF EF 35%, Social history: Does not smoke or drink alcohol. Physical examination: VITAL SIGNS: 97.9, 55, 18, 145/68, 99% room air GENERAL: BMI 22.6, reclining in bed, awake, comfortable. EYES: Pupils equal. Conjunctiva normal. HEENT: External appearance of nose and ears normal, oral cavity grossly normal. NECK: JVD not raised; masses not palpable. Right IJ dialysis catheter HEART: First and second heart sounds are normal; no edema. LUNGS: Respiratory rate normal; clear to auscultation. ABDOMEN: Soft, nontender, liver spleen not palpable, no masses palpable. PSYCH: Alert and oriented x3; mood and affect normal. MUSCULOSKELETAL:No Clubbing/cyanosis;muscles-grossly intact NEUROLOGICAL: Cranial nerves grossly intact; no facial asymmetry, power and sensation grossly intact. LYMPHATICS: No lymph nodes palpable in the axilla and neck INVESTIGATIONS, reviewed in the clinical context: White count 6.5 hemoglobin 7.8 platelets 233 potassium 3.6 BUN 44 creatinine 4.05 Previous studies: 2-D echocardiogram June 2021: EF 55%, moderate aortic regurgitation, moderate MR, moderate TR. Nuclear stress test June 2021: Negative Assessment and plan: -Dialysis catheter malfunction. Received alteplase yesterday evening. Was able to dialyze well. Today -CAD with a prior history of coronary bypass Aspirin, Lopressor, Pravachol, -Moderate aortic regurgitation, moderate MR, moderate TR -Metabolic acidosis due to acute kidney injury Oral bicarbonate. -Diabetes mellitus type 2 on oral hypoglycemic, with hypoglycemia from being nothing by mouth Hold glyburide -Iron deficiency anemia -Paroxysmal atrial flutter fibrillation, currently sinus rhythm Metoprolol. Eliquis. Follow-up with Dr. Kelly Cortés outpatient -Right kidney complex cystic lesion. Being followed by urology -Acute bladder outflow obstruction secondary to enlarged prostate . Hilario catheter. Flomax -Hypertension with chronic kidney disease -Acute on chronic diastolic CHF from EF 55% Hemodialysis -Hyperphosphatemia secondary to acute kidney injury Continue dialysis -Full code Disposition: Home Plan - Discharge Summary Discharge Rx Participant: No New Discharge Prescriptions: No Action allopurinoL [Zyloprim] 100 mg PO BID Tamsulosin HCl [Flomax] 0.4 mg PO BID Potassium Chloride ER [K-Dur 10] 10 meq PO DAILY Famotidine [Pepcid] 20 mg PO DAILY Azelastine HCl [Astelin Nasal [place]] 2 spray NASAL BID Nitroglycerin Sl Tabs [Nitrostat] 0.4 mg SL Q5M PRN PRN Reason: Chest Pain HYDROcodone/APAP 5-325MG [[place] 5-325] 1 tab PO BID PRN PRN Reason: Pain Meclizine HCl [Antivert] 25 mg PO DAILY PRN PRN Reason: Vertigo Torsemide [Demadex] 40 mg PO DAILY #30 tab Sodium Bicarbonate Tab 650 mg PO BID #60 tab glyBURIDE [Diabeta] 5 mg PO AC-BRKFST #30 tablet Metoprolol Tartrate [Lopressor] 50 mg PO BID Aspirin EC [Ecotrin Low Dose] 81 mg PO DAILY Repaglinide [Prandin] 1 mg PO HS Pravastatin Sodium [Pravachol] 40 mg PO HS Acetaminophen [Tylenol 8 Hour] 650 mg PO Q6H PRN PRN Reason: Pain Or Fever > 100.5 amLODIPine [Norvasc] 5 mg PO BID #60 tab Apixaban [Eliquis] 2.5 mg PO BID #60 tab Discharge Medication List Acetaminophen [Tylenol 8 Hour] 650 mg PO Q6H PRN 02/11/22 [History] Aspirin EC [Ecotrin Low Dose] 81 mg PO DAILY 02/11/22 [History] Azelastine HCl [Astelin Nasal [place]] 2 spray NASAL BID 02/11/22 [History] Famotidine [Pepcid] 20 mg PO DAILY 02/11/22 [History] HYDROcodone/APAP 5-325MG [[place] 5-325] 1 tab PO BID PRN 02/11/22 [History] Meclizine HCl [Antivert] 25 mg PO DAILY PRN 02/11/22 [History] Metoprolol Tartrate [Lopressor] 50 mg PO BID 02/11/22 [History] Nitroglycerin Sl Tabs [Nitrostat] 0.4 mg SL Q5M PRN 02/11/22 [History] Potassium Chloride ER [K-Dur 10] 10 meq PO DAILY 02/11/22 [History] Pravastatin Sodium [Pravachol] 40 mg PO HS 02/11/22 [History] Repaglinide [Prandin] 1 mg PO HS 02/11/22 [History] Tamsulosin HCl [Flomax] 0.4 mg PO BID 02/11/22 [History] allopurinoL [Zyloprim] 100 mg PO BID 02/11/22 [History] Sodium Bicarbonate Tab 650 mg PO BID #60 tab 02/20/22 [Rx] Torsemide [Demadex] 40 mg PO DAILY #30 tab 02/20/22 [Rx] glyBURIDE [Diabeta] 5 mg PO AC-BRKFST #30 tablet 02/20/22 [Rx] amLODIPine [Norvasc] 5 mg PO BID #60 tab 02/23/22 [Rx] Apixaban [Eliquis] 2.5 mg PO BID #60 tab 02/28/22 [Rx] Follow up Appointment(s)/Referral(s): Erasmo Downs MD [Primary Care Provider] - 1-2 days
[2022-03-07 16:56] LABS: Glucose,Whole Blood 127 mg/dL (70-110)
== END 2022-03-07 17:20 | disposition home or self-care (01) ==
LOC: EC 12:00 → 5NMEDONC 13:41 → 6NMEDSUR 15:42
PROVIDERS: ADMIT Hospitalist; ATTEND Hospitalist
DX: T82.41XA Breakdown (mechanical) of vascular dialysis catheter, initial encounter (principal); N17.9 Acute kidney failure, unspecified; E11.22 Type 2 diabetes mellitus with diabetic chronic kidney disease; I13.2 Hypertensive heart and chronic kidney disease with heart failure and with stage 5 chronic kidney disease, or end stage renal disease; I50.33 Acute on chronic diastolic (congestive) heart failure; N18.6 End stage renal disease; D63.1 Anemia in chronic kidney disease; I48.91 Unspecified atrial fibrillation; N40.1 Benign prostatic hyperplasia with lower urinary tract symptoms; N13.8 Other obstructive and reflux uropathy; I25.10 Atherosclerotic heart disease of native coronary artery without angina pectoris; I08.0 Rheumatic disorders of both mitral and aortic valves; E78.5 Hyperlipidemia, unspecified; E87.20 Acidosis, unspecified; E83.39 Other disorders of phosphorus metabolism; Q61.9 Cystic kidney disease, unspecified; I48.92 Unspecified atrial flutter; E11.649 Type 2 diabetes mellitus with hypoglycemia without coma; Z95.1 Presence of aortocoronary bypass graft; Z79.82 Long term (current) use of aspirin; Z79.899 Other long term (current) drug therapy; Z79.84 Long term (current) use of oral hypoglycemic drugs; Z79.01 Long term (current) use of anticoagulants; Z88.2 Allergy status to sulfonamides; Z88.1 Allergy status to other antibiotic agents; Z99.2 Dependence on renal dialysis
CPT/HCPCS: 96376; 96374; 99285; 80053; 80048; 82728; 83540; 83550; 83735; 84100; 85025; 85610; 85730; G0378 ×2; J2997; 90935

== ENCOUNTER → 2022-03-24 | Outpatient (CLI) | payer MEDICARE ==
[2022-03-24 10:00] LABS: INR 1.3 (<1.2); Partial Thromboplastin Time 34.7 sec (22.0-30.0); Prothrombin Time 13.6 sec (9.0-12.0)
[2022-03-24 14:29] LABS: HCT 28.8 % (39.6-50.0); HGB 8.7 g/dL (13.0-17.0); MCHC 30.2 g/dL (32.0-37.0); MCV 109.1 fL (80.0-97.0); Mean Platelet Volume 9.8 fL (9.5-12.2); NRBC Per 100 WBC 0.2 /100 WBCS (0.0-0.0); Platelet Count 396 X 10*3/uL (140-440); RBC 2.64 X 10*6/uL (4.40-5.60); RDW 14.9 % (11.5-14.5)
[2022-03-24 15:14] LABS: Basophils # (A) 0.03 X 10*3/uL (0.00-0.10); Basophils % (A) 0.3 %; Eosinophils # (A) 0.04 X 10*3/uL (0.04-0.35); Eosinophils % (A) 0.4 %; Immature Grans, Automated 0.9 %; Lymphocytes # (A) 2.14 X 10*3/uL (0.90-5.00); Monocytes # (A) 0.84 X 10*3/uL (0.20-1.00); Monocytes % (A) 7.9 %; Neutrophils # (A) 7.55 X 10*3/uL (1.80-7.70); Neutrophils % (A) 70.5 %; RBC Morphology NORMAL
[2022-03-24 16:29] LABS: African American GFR (CKD) 21.2 (60.0-200.0); Anion Gap 16.9 mmol/L (10.00-18.00); Blood Urea Nitrogen 25.9 mg/dL (9.0-27.0); Carbon Dioxide 20.1 mmol/L (20.0-27.5); Non-African American GFR(CKD) 18.3 (60.0-200.0); Potassium 4.6 mmol/L (3.5-5.5)
== END | disposition home or self-care (01) ==
LOC: LABWHC1 08:49
PROVIDERS: ATTEND Internal Medicine Nephrology
DX: N17.9 Acute kidney failure, unspecified (principal)
CPT/HCPCS: 36415; 80051; 82565; 84520; 85025; 85610; 85730

== ENCOUNTER → 2022-03-25 | Outpatient (CLI) | payer MEDICARE | END | disposition home or self-care (01) | LOC: LABWHC1 10:12 | PROVIDERS: ATTEND Internal Medicine Nephrology | DX: Z53.9 Procedure and treatment not carried out, unspecified reason (principal) ==

== ENCOUNTER 2022-03-26 07:39 | Day surgery (SDC) | payer MEDICARE ==
[2022-03-26] MEDS ORDERED: DESMOPRESSIN ACETATE 20 MCG in SODIUM CHLORIDE 0.9% 50 ML IVPB ONE (08:27)
[2022-03-26] MEDS ORDERED: ALPRAZolam 0.25 MG TAB PO STA (08:40)
[2022-03-26] MEDS ORDERED: HYDROmorphone 0.5 MG/0.5 ML SYRINGE IVP PRN (08:47)
[2022-03-26 08:50] VITALS: TEMP 98.1
[2022-03-26 12:09] VITALS: RESP 16
--- NOTE | 2022-03-26 14:34 | US ---
Ultrasound-guided renal biopsy Date: 03/26/2022 History: Acute kidney injury Comparison: Unenhanced CT 03/04/2022 The patient was brought to the US room after coagulation profile was checked and deemed appropriate. The risks and benefits of the procedure were explained to the patient, and the patient's questions we re answered. Informed consent was obtained. Limited ultrasound of the left kidney was performed for localization in preparation for biopsy. A critical pause was performed. Sterile field was prepared, and lidocaine was used for local anesthes ia. Under direct ultrasound guidance, 3 18-gauge core specimens were obtained of the lower pole noris x. The patient tolerated the procedure well with no apparent complications. A postprocedural scan throug h the region of interest demonstrated no acute complications. After the procedure, the patient was observed for a short period of time, again with no complications . Impression: Successful ultrasound-guided left renal biopsy.
[2022-03-26 14:47] VITALS: BP 127/67; PULSE 55
== END 2022-03-26 15:15 | disposition home or self-care (01) ==
LOC: RADPROMAIN 07:39
PROVIDERS: ATTEND Internal Medicine
DX: N17.9 Acute kidney failure, unspecified (principal); N12 Tubulo-interstitial nephritis, not specified as acute or chronic; Z99.2 Dependence on renal dialysis; N26.9 Renal sclerosis, unspecified
CPT/HCPCS: 86900; 86901; 86850; 76942; 50200; J2597

== ENCOUNTER 2022-11-04 10:34 | Day surgery (SDC) | payer MEDICARE ==
[~2022-11-04 10:34] MED LIST: FAMOTIDINE 20 MG/2 ML VIAL IV PRN; HYDROmorphone 0.5 MG/0.5 ML SYRINGE IVP PRN; LACTATED RINGERS 1,000 ML IV SCH; LIDOCAINE 1% (10MG/ML) FOR IV START INTRADERMA PRN; ONDANSETRON 4 MG/2 ML VIAL IVP PRN
[2022-11-04] MEDS: OXYMETAZOLINE 0.05% NASL SPRAY 1 SPRAY BOTTLE EA NOSTRIL PRN ×5 (11:00→11:20)
[2022-11-04] MEDS ORDERED: SODIUM CHLORIDE 0.9% 1,000 ML IV ONE (11:23)
[2022-11-04 11:27] LABS: Glucose,Whole Blood 95 mg/dL (70-110)
[2022-11-04] MEDS ORDERED: GLYCOPYRROLATE 0.2 MG/ML 2 ML VIAL ONE (11:57)
[2022-11-04] MEDS ORDERED: LIDOCAINE 4% LTA KIT (4 ML) TOPICAL ONE (11:57)
[2022-11-04] MEDS ORDERED: SUCCINYLCHOLINE CHLORIDE 200 MG/10 ML VIAL IV ONE (11:57)
[2022-11-04] MEDS ORDERED: PHENYLEPHRINE-0.9% NACL SYG 1,000 MCG/10 ML SYRINGE ONE (11:57)
[2022-11-04] MEDS ORDERED: DEXAMETHASONE SOD PHOSPHATE 4 MG/ML 1 ML VIAL ONE (11:57)
[2022-11-04] MEDS ORDERED: ePHEDrine 50 MG/ML 1 ML VIAL ONE (11:57)
[2022-11-04] MEDS ORDERED: LIDOCAINE 2% INJ 20 MG/ML (2 ML VIAL) ONE (11:57)
[2022-11-04] MEDS ORDERED: MIDAZOLAM 2 MG/2 ML VIAL ONE (11:57)
[2022-11-04] MEDS ORDERED: PROPOFOL 10 MG/ML 20 ML VIAL IV ONE (11:57)
[2022-11-04] MEDS ORDERED: fentaNYL (PF) 50 MCG/ML 2 ML AMP ONE (11:57)
[2022-11-04] MEDS ORDERED: LIDOCAINE 1%-EPI 1:100,000 50 ML VIAL SQ ONE (12:21)
--- NOTE | 2022-11-04 12:52 | P.OP ---
Date of Procedure: 11/04/22 Preoperative Diagnosis: Deviated nasal septum Inferior turbinate hypertrophy Postoperative Diagnosis: Same Procedure(s) Performed: Septoplasty Outfracture and submucous resection of the inferior turbinates Anesthesia: ROMIA Surgeon: Darryl Arriola Estimated Blood Loss (ml): 3 Pathology: other (Nasal septal bone and cartilage) Condition: stable Disposition: PACU Indications for Procedure: This 77-year-old white male with chronic nasal airway obstruction bilaterally but right greater than left which did not improve with topical steroid nasal sprays Operative Findings: Nasal septum deviated to the right in both the bony and cartilaginous septum obstructing approximately 80% of the nasal airway with inferior turbinate hypertrophy bilaterally Description of Procedure: DESCRIPTION OF PROCEDURE: The patient was brought to the operative suite, placed in the supine position. The patient underwent induction of general anesthesia with oral endotracheal intubation without difficulty. The patient was prepped and draped in the usual aseptic fashion. 1% lidocaine with 1:100,000 epinephrine was infused submucosally on both sides of the nasal septum. While this was taking vasoconstrictive effect, the inferior turbinates were infractured with a [place] elevator. Partial submucous resection of the inferior turbinates was performed with Coblation device ablating a portion of the submucosal soft tissue. The inferior turbinates were then outfractured with a [place] elevator. A left hemitransfixion incision was then made through the mucoperichondrial. Mucoperiosteal flap on the left elevated. Bony cartilaginous junction was di sarticulated and mucoperiosteal flap on the right was elevated. Bony nasoseptal deformity were removed with Sonia forceps and an inferior cartilaginous strip was removed, leaving a full 1.5 cm caudal strut. Checking intranasally, this corrected the nasal septal deformities and the hemitransfixion incision was closed with running 4-0 chromic suture. The bilateral Hayes airway splints coated in bacitracin ointment were placed in the nasal cavities and sutured transseptally with 4-0 nylon suture. The patient was then suctioned in an orogastric fashion. The patient was allowed to emerge from general anesthesia, having tolerated the procedure well and was extubated in the operating suite, transferred to postoperative recovery area in satisfactory condition.
[2022-11-04 13:08] VITALS: TEMP 97.6
[2022-11-04 13:17] VITALS: RESP 16
[2022-11-04] MEDS ORDERED: HYDROcodone/APAP 5-325MG 1 EACH TAB ONE (14:18)
[2022-11-04] MEDS ORDERED: HYDROcodone/APAP 5-325MG 1 EACH TAB PO ONE (14:19)
[2022-11-04] MEDS ORDERED: hydrALAZINE HCL 20 MG/ML 1 ML VIAL ONE ×2 (14:24→15:03)
[2022-11-04] MEDS ORDERED: hydrALAZINE HCL 20 MG/ML 1 ML VIAL IV ONE ×2 (14:30→15:05)
[2022-11-04 15:21] VITALS: BP 149/59; PULSE 64
== END 2022-11-04 15:45 | disposition home or self-care (01) ==
LOC: OR 10:34
PROVIDERS: ATTEND Otolaryngology
DX: J34.2 Deviated nasal septum (principal); J34.3 Hypertrophy of nasal turbinates; E11.9 Type 2 diabetes mellitus without complications; E78.00 Pure hypercholesterolemia, unspecified; F10.90 Alcohol use, unspecified, uncomplicated; Z90.49 Acquired absence of other specified parts of digestive tract; Z98.890 Other specified postprocedural states; Z79.899 Other long term (current) drug therapy
CPT/HCPCS: 88300; 30520; 30140; J2250; J0330; J0360; J1100; J0690; J2405; J3010; J2704; J1170; J2001; J2371

== ENCOUNTER → 2023-02-01 | Outpatient (CLI) | payer MEDICARE | END | disposition home or self-care (01) | LOC: LABWHC1 07:37 | PROVIDERS: ATTEND Urology | DX: N40.1 Benign prostatic hyperplasia with lower urinary tract symptoms (principal); N13.8 Other obstructive and reflux uropathy | CPT/HCPCS: 36415; 84153 ==

== ENCOUNTER → 2023-11-05 | Outpatient (CLI) | payer MEDICARE | END | disposition home or self-care (01) | LOC: LABWHC1 13:56 | PROVIDERS: ATTEND Nurse Practitioner Acute Care | CPT/HCPCS: 36415; 80053; 82043; 82570; 82728; 83540; 83550; 85027 ==

== ENCOUNTER 2024-06-20 21:49 | Inpatient (IN) | payer MEDICARE ==
--- NOTE | 2024-06-20 22:17 | ED ---
SOB HPI - General Chief Complaint: Shortness of Breath Stated Complaint: VALERIY Time Seen by Provider: 06/20/24 21:53 Source: patient, EMS Mode of arrival: EMS Limitations: no limitations - History of Present Illness Initial Comments: The patient is an 78-year-old man with history of previous congestive heart failure, "heart valve disease", and chronic renal failure, who presents with complaint that he is having worsening of shortness of breath over the past few days to 2 weeks or so. He states that now he is not able to lie flat, and he is not able to walk more than about 8 to 10 feet without becoming very short of breath. Has not noted fevers. No chest pain. He does have chronic leg edema that he states has not changed. MD Complaint: shortness of breath Onset/Timin -: week(s) Severity scale (1-10): 0 Consistency: constant Improves With: upright position Worsens With: lying flat Known History Of: congestive heart failure Associated Symptoms: orthopnea Treatments Prior to Arrival: none - Related Data Home Oxygen Therapy: No Home Medications Medication Instructions Recorded Confirmed Metoprolol Tartrate [Lopressor] 25 mg PO BID 02/11/22 07/04/24 Nitroglycerin Sl Tabs [Nitrostat] 0.4 mg SL Q5M PRN 02/11/22 07/04/24 Pravastatin Sodium [Pravachol] 40 mg PO HS 02/11/22 07/04/24 Tamsulosin HCl [Flomax] 0.4 mg PO BID 02/11/22 07/04/24 Budesonide/Formoterol Fumarate 2 puff INHALATION RT-BID 06/05/22 07/04/24 [Symbicort 160-4.5 Mcg Inhaler] glyBURIDE [Diabeta] 2.5 mg PO Q3D 11/02/22 07/04/24 Apixaban [Eliquis] 2.5 mg PO BID 06/21/24 07/04/24 Azelastine HCl [Astelin Nasal 1 spray EA NOSTRIL BID 06/21/24 07/04/24 Proctor] Mv-Min/Folic/K1/Lycopen/Lutein 1 tab PO DAILY 06/21/24 07/04/24 [Centrum Silver Men Tablet] Sodium Bicarbonate Tab 650 mg PO HS 06/21/24 07/04/24 Previous Rx's Medication Instructions Recorded Hydrocortisone [Anusol-Hc] 1 applic RECTAL DAILY #30 gm 06/27/24 Pantoprazole [Protonix] 40 mg PO AC-BRKFST #30 tab 06/28/24 Acetaminophen Tab [Tylenol] 650 mg PO Q6HR PRN tab 07/07/24 Dapagliflozin Propanediol [Farxiga] 10 mg PO DAILY #30 tab 07/07/24 Torsemide [Demadex] 40 mg PO DAILY #0 07/07/24 predniSONE 0 mg PO DIRECTED #12 tab 07/08/24 Allergies Allergy/AdvReac Type Severity Reaction Status Date / Time duloxetine [From Cymbalta] Allergy Rash/Hives Verified 07/04/24 16:48 enalaprilat [From Vasotec] Allergy Unknown Verified 07/04/24 16:48 levofloxacin [From Levaquin] Allergy Rash/Hives Verified 07/04/24 16:48 saxagliptin [From Onglyza] Allergy Rash/Hives Verified 07/04/24 16:48 sulfamethoxazole Allergy Rash/Hives Verified 07/04/24 16:48 [From Bactrim] trimethoprim [From Bactrim] Allergy Rash/Hives Verified 07/04/24 16:48 Review of Systems ROS Statement: Those systems with pertinent positive or pertinent negative responses have been documented in the HPI. ROS Other: All systems not noted in ROS Statement are negative. Constitutional: Denies: fever, chills, weakness Respiratory: Denies: cough, dyspnea, hemoptysis Cardiovascular: Reports: dyspnea on exertion, orthopnea, edema. Denies: chest pain, palpitations, syncope Gastrointestinal: Denies: abdominal pain, nausea, vomiting, diarrhea Genitourinary: Denies: dysuria, hematuria Musculoskeletal: Denies: back pain Skin: Denies: rash Neurological: Denies: headache, weakness Past Medical History Past Medical History: Atrial Fibrillation, Coronary Artery Disease (CAD), Diabetes Mellitus, Dialysis, Hypertension, Prostate Disorder, Renal Disease Additional Past Medical History / Comment(s): Dialysis Mon, Wed, Fri History of Any Multi-Drug Resistant Organisms: None Reported Past Surgical History: Cholecystectomy, Coronary Bypass/CABG Additional Past Surgical History / Comment(s): ACL ligament replacement, CABG 3 vessel Past Anesthesia/Blood Transfusion Reactions: No Reported Reaction Past Psychological History: Anxiety Smoking Status: Never smoker - Past Family History Father Family Medical History: Cancer Additional Family Medical History / Comment(s): pancreatic General Exam Limitations: no limitations General appearance: alert, in distress Head exam: Present: atraumatic, normocephalic Eye exam: Present: normal appearance. Absent: scleral icterus, conjunctival injection ENT exam: Present: normal oropharynx Neck exam: Present: normal inspection Respiratory exam: Present: respiratory distress, rales (Bilateral lower lung [place]). Absent: wheezes, rhonchi, stridor, accessory muscle use, decreased breath sounds Cardiovascular Exam: Present: irregular rhythm, systolic murmur, gallop. Absent: diastolic murmur, rubs GI/Abdominal exam: Present: soft. Absent: distended, tenderness, guarding, rebound, rigid, mass, pulsatile mass Extremities exam: Present: normal inspection, normal capillary refill. Absent: pedal edema, calf tenderness Back exam: Present: normal inspection. Absent: CVA tenderness (R), CVA tenderness (L) Neurological exam: Present: alert Skin exam: Present: warm, dry, intact, normal color. Absent: rash Course Vital Signs 06/20/24 06/20/24 06/20/24 21:52 22:30 23:46 Temperature 99.5 F Pulse Rate 80 80 Pulse Rate [ Child Adolescent Psychiatrist ] Respiratory 20 20 Rate Blood Pressure 123/62 126/59 Blood Pressure [Right Arm] O2 Sat by Pulse 91 L 98 Oximetry Fraction of 50 Inspired Oxygen (FIO2) 06/21/24 06/21/24 06/21/24 01:14 01:15 02:10 Temperature 98.7 F Pulse Rate 70 Pulse Rate [ 61 Child Adolescent Psychiatrist ] Respiratory 23 20 Rate Blood Pressure 142/80 Blood Pressure 130/79 [Right Arm] O2 Sat by Pulse 96 98 Oximetry Fraction of 40 Inspired Oxygen (FIO2) 06/21/24 06/21/24 06/21/24 03:05 04:22 06:00 Temperature 98.3 F Pulse Rate 75 70 Pulse Rate [ Child Adolescent Psychiatrist ] Respiratory 16 19 Rate Blood Pressure 139/74 131/88 Blood Pressure [Right Arm] O2 Sat by Pulse 99 98 Oximetry Fraction of 40 Inspired Oxygen (FIO2) 06/21/24 06/21/24 06/21/24 07:20 08:44 08:55 Temperature Pulse Rate 70 80 Pulse Rate [ Child Adolescent Psychiatrist ] Respiratory 18 22 Rate Blood Pressure 127/73 144/102 Blood Pressure [Right Arm] O2 Sat by Pulse 98 96 Oximetry Fraction of 40 Inspired Oxygen (FIO2) 06/21/24 06/21/24 06/21/24 08:57 09:16 11:14 Temperature Pulse Rate 74 72 64 Pulse Rate [ Child Adolescent Psychiatrist ] Respiratory 20 Rate Blood Pressure 118/61 Blood Pressure [Right Arm] O2 Sat by Pulse 99 Oximetry Fraction of Inspired Oxygen (FIO2) 06/21/24 06/21/24 06/21/24 11:58 11:59 12:11 Temperature Pulse Rate 66 62 Pulse Rate [ Child Adolescent Psychiatrist ] Respiratory 18 Rate Blood Pressure 124/60 Blood Pressure [Right Arm] O2 Sat by Pulse 100 Oximetry Fraction of 40 Inspired Oxygen (FIO2) 06/21/24 06/21/24 12:13 13:04 Temperature 98.4 F Pulse Rate 60 62 Pulse Rate [ Child Adolescent Psychiatrist ] Respiratory 20 Rate Blood Pressure 117/54 Blood Pressure [Right Arm] O2 Sat by Pulse 99 Oximetry Fraction of Inspired Oxygen (FIO2) Medical Decision Making - Medical Decision Making The patient had chest x-ray that I interpreted as showing suspected left lower lobe pneumonia. No pneumothorax. Was pt. sent in by a medical professional or institution (Dr. PA, [employer], urgent care, hospital, or penitentiary...) When possible be specific @ -[No] Did you speak to anyone other than the patient for history (EMS, parent, family, police, friend...)? What history was obtained from this source @ -[No] Did you review nursing and triage notes (agree or disagree)? Why? @ -[I reviewed and agree with nursing and triage notes] Were old charts reviewed (outside hosp., previous admission, EMS record, old EKG, old radiological studies, urgent care reports/EKG's, penitentiary records)? Report findings @ -[No old charts were reviewed] Differential Diagnosis (chest pain, altered mental status, abdominal pain women, abdominal pain men, vaginal bleeding, weakness, fever, dyspnea, syncope, headache, dizziness, GI bleed, back pain, seizure, CVA, palpatations, mental health, musculoskeletal)? @ -[Differential Dyspnea: Coronary syndrome, arrhythmia, tamponade, asthma, COPD, pulmonary embolism, pneumonia, pneumothorax, pulmonary effusion, anaphylaxis, diabetic ketoacidosis, flailed chest, pulmonary contusion, diaphragmatic rupture, anemia, neuromuscular, this is not meant to be an all-inclusive list. EKG interpreted by me (3pts min.). @ -[I interpreted as above] X-rays interpreted by me (1pt min.). @ -[I interpreted as above CT interpreted by me (1pt min.). @ -[None done] U/S interpreted by me (1pt. min.). @ -[None done] What testing was considered but not performed or refused? (CT, X-rays, U/S, labs)? Why? @ -[None] What meds were considered but not given or refused? Why? @ -[None] Did you discuss the management of the patient with other professionals (professionals i.e. DrBhavna, PA, [employer], lab, RT, psych nurse, case management social worker, aviation neuropsychologist, teacher, juvenile corrections officer, casey saw operator)? Give summary @ -[Case discussed with admitting physician and treatment recommendations are incorporated Was smoking cessation discussed for >3mins.? @ -[No] Was critical care preformed (if so, how long)? @ -[No] Were there social determinants of health that impacted care today? How? (Homelessness, low income, unemployed, alcoholism, drug addiction, transportation, low edu. Level, literacy, decrease access to med. care, mcc, rehab)? @ -[No] Was there de-escalation of care discussed even if they declined (Discuss DNR or withdrawal of care, Hospice)? DNR status @ -[No] What co-morbidities impacted this encounter? (DM, HTN, Smoking, COPD, CAD, Cancer, CVA, ARF, Chemo, Hep., AIDS, mental health diagnosis, sleep apnea, morbid obesity)? @ -[None] Was patient admitted / discharged? Hospital course, mention meds given and route, prescriptions, significant lab abnormalities, going to OR and other pertinent info. @ -[This patient is an 78-year-old man here with dyspnea, likely multifactorial. There is probable pneumonia as well as element of congestive he art failure. The patient is admitted, started on antibiotics, will have consultations with pulmonology and cardiology. In addition there is element of renal failure. Undiagnosed new problem with uncertain prognosis? @ -[No] Drug Therapy requiring intensive monitoring for toxicity (Heparin, Nitro, Insulin, Cardizem)? @ -[No] Were any procedures done? @ -[No] Diagnosis/symptom? @ -[Acute dyspnea. Acute pneumonia Exacerbation of CHF. Chronic renal failure Hypokalemia Hyperglycemia Acute, or Chronic, or Acute on Chronic? @ -[Acute Uncomplicated (without systemic symptoms) or Complicated (systemic symptoms)? @ -[Complicated by dyspnea Side effects of treatment? @ -[No] Exacerbation, Progression, or Severe Exacerbation? @ -[No] Poses a threat to life or bodily function? How? (Chest pain, [place], DC, pneumonia, PE, COPD, DKA, ARF, appy, cholecystitis, CVA, Diverticulitis, Homicidal, S uicidal, threat to staff... and all critical care pts) @ -[Yes, patient has multiple organ systems that are failing and at high risk of additional morbidity and mortality All treatments are based on ideal body weight as in ED triage - Lab Data Result diagrams: 06/27/24 07:58 06/28/24 12:21 Lab Results 06/20/24 06/20/24 06/20/24 Range/Units 22:20 22:20 22:20 WBC 13.0 H (3.8-10.6) k/uL RBC 2.76 L (4.30-5.90) m/uL Hgb 8.3 L (13.0-17.5) gm/dL Hct 25.8 L (39.0-53.0) % MCV 93.5 (80.0-100.0) fL MCH 30.0 (25.0-35.0) pg MCHC 32.1 (31.0-37.0) g/dL RDW 15.3 (11.5-15.5) % Plt Count 144 L (150-450) k/uL MPV 9.5 Neutrophils % 97 % Lymphocytes % 1 % Monocytes % 2 % Eosinophils % 0 % Basophils % 0 % Neutrophils # 12.5 H (1.3-7.7) k/uL Lymphocytes # 0.2 L (1.0-4.8) k/uL Monocytes # 0.2 (0-1.0) k/uL Eosinophils # 0.0 (0-0.7) k/uL Basophils # 0.0 (0-0.2) k/uL Hypochromasia Moderate PT 13.2 H (10.0-12.5) sec INR 1.2 H (<1.2) APTT 34.9 H (22.0-30.0) sec Sodium 135 L (137-145) mmol/L Potassium 3.0 L (3.5-5.1) mmol/L Chloride 103 (98-107) mmol/L Carbon Dioxide 17 L (22-30) mmol/L Anion Gap 15 mmol/L BUN 70 H (9-20) mg/dL Creatinine 3.03 H (0.66-1.25) mg/dL Est GFR (CKD-EPI)AfAm 21 (>60 ml/min/1.73 sqM) Est GFR (CKD-EPI)NonAf 19 (>60 ml/min/1.73 sqM) Glucose 199 H (74-99) mg/dL Plasma Lactic Acid Sawyer (0.7-2.0) mmol/L Calcium 8.5 (8.4-10.2) mg/dL Magnesium 2.0 (1.6-2.3) mg/dL Total Bilirubin 1.0 (0.2-1.3) mg/dL AST 30 (17-59) U/L ALT 50 H (4-49) U/L Alkaline Phosphatase 70 (38-126) U/L Troponin I (0.000-0.034) ng/mL NT-Pro-B Natriuret Pep 11703 pg/mL Total Protein 6.0 L (6.3-8.2) g/dL Albumin 3.1 L (3.5-5.0) g/dL Influenza Type A (PCR) (Not Detectd) Influenza Type B (PCR) (Not Detectd) RSV (PCR) (Not Detectd) SARS-CoV-2 (PCR) (Not Detectd) 06/20/24 06/20/24 06/20/24 Range/Units 22:20 22:20 22:20 WBC (3.8-10.6) k/uL RBC (4.30-5.90) m/uL Hgb (13.0-17.5) gm/dL Hct (39.0-53.0) % MCV (80.0-100.0) fL MCH (25.0-35.0) pg MCHC (31.0-37.0) g/dL RDW (11.5-15.5) % Plt Count (150-450) k/uL MPV Neutrophils % % Lymphocytes % % Monocytes % % Eosinophils % % Basophils % % Neutrophils # (1.3-7.7) k/uL Lymphocytes # (1.0-4.8) k/uL Monocytes # (0-1.0) k/uL Eosinophils # (0-0.7) k/uL Basophils # (0-0.2) k/uL Hypochromasia PT (10.0-12.5) sec INR (<1.2) APTT (22.0-30.0) sec Sodium (137-145) mmol/L Potassium (3.5-5.1) mmol/L Chloride (98-107) mmol/L Carbon Dioxide (22-30) mmol/L Anion Gap mmol/L BUN (9-20) mg/dL Creatinine (0.66-1.25) mg/dL Est GFR (CKD-EPI)AfAm (>60 ml/min/1.73 sqM) Est GFR (CKD-EPI)NonAf (>60 ml/min/1.73 sqM) Glucose (74-99) mg/dL Plasma Lactic Acid Sawyer 1.9 (0.7-2.0) mmol/L Calcium (8.4-10.2) mg/dL Magnesium (1.6-2.3) mg/dL Total Bilirubin (0.2-1.3) mg/dL AST (17-59) U/L ALT (4-49) U/L Alkaline Phosphatase (38-126) U/L Troponin I 0.104 H* (0.000-0.034) ng/mL NT-Pro-B Natriuret Pep pg/mL Total Protein (6.3-8.2) g/dL Albumin (3.5-5.0) g/dL Influenza Type A (PCR) Not Detected (Not Detectd) Influenza Type B (PCR) Not Detected (Not Detectd) RSV (PCR) Not Detected (Not Detectd) SARS-CoV-2 (PCR) Not Detected (Not Detectd) - EKG Data -: EKG Interpreted by Hi EKG shows normal: sinus rhythm, axis (Left axis deviation), intervals (VA inter rene 275 ms, prolonged consistent with first-degree AV block. QRS duration 102 ms, QTc 407 ms, both normal.) Rate: normal (77 bpm) Interpretation: LVH Disposition Clinical Impression: Congestive heart failure, Acute renal failure, Pneumonia, Hypokalemia, Hyperglycemia Disposition: ADMITTED IP TO THIS HOSP Condition: Serious
[2024-06-20 22:30] LABS: Basophils % (A) 0 %; Eosinophils % (A) 0 %; HCT 25.8 % (39.0-53.0); HGB 8.3 gm/dL (13.0-17.5); Hypochromasia Moderate; Lymphocytes # (A) 0.2 k/uL (1.0-4.8); Lymphocytes % (A) 1 %; MCHC 32.1 g/dL (31.0-37.0); MCV 93.5 fL (80.0-100.0); Mean Platelet Volume 9.5; Monocytes # (A) 0.2 k/uL (0-1.0); Monocytes % (A) 2 %; Neutrophils # (A) 12.5 k/uL (1.3-7.7); Neutrophils % (A) 97 %; Platelet Count 144 k/uL (150-450); RBC 2.76 m/uL (4.30-5.90); RDW 15.3 % (11.5-15.5)
[2024-06-20 22:55] LABS: INR 1.2 (<1.2); Partial Thromboplastin Time 34.9 sec (22.0-30.0); Prothrombin Time 13.2 sec (10.0-12.5)
[2024-06-20 23:05] LABS: ALT 50 U/L (4-49); AST 30 U/L (17-59); African American GFR (CKD) 21 (>60 ml/min/1.73 sqM); Albumin 3.1 g/dL (3.5-5.0); Alkaline Phosphatase 70 U/L (38-126); Anion Gap 15 mmol/L; Blood Urea Nitrogen 70 mg/dL (9-20); Calcium 8.5 mg/dL (8.4-10.2); Carbon Dioxide 17 mmol/L (22-30); Chloride 103 mmol/L (98-107); Glucose 199 mg/dL (74-99); Influenza A Not Detected (Not Detectd); Influenza B Not Detected (Not Detectd); Non-African American GFR(CKD) 19 (>60 ml/min/1.73 sqM); RSV Not Detected (Not Detectd); Sodium 135 mmol/L (137-145)
--- NOTE | 2024-06-20 23:19 | XR ---
EXAM: XR Chest, 2 Views CLINICAL HISTORY: ITS.REASON XR Reason: difficulty breathing TECHNIQUE: Frontal and lateral views of the chest. COMPARISON: 02/24/2023 FINDINGS: Lungs: Left lower lobe pneumonia. Pleural space: Unremarkable. No pneumothorax. Heart: Cardiomegaly. Mediastinum: Unremarkable. Normal mediastinal contour. Bones/joints: Postoperative changes median sternotomy. No acute fracture. IMPRESSION: Left lower lobe pneumonia
[2024-06-20] MEDS: AZITHROMYCIN 500 MG TAB PO STA (23:44)
[2024-06-21 00:11] LABS: NT-Pro-B-Type Natriuretic Pept 84500 pg/mL
[2024-06-21] MEDS ORDERED: PNEUMONIA PROTOCOL UTILIZED 1 EACH MISC PO PRN (01:00)
[2024-06-21] MEDS: SODIUM CHLORIDE 0.9% 1,000 ML IV SCH (01:15)
[2024-06-21] MEDS ORDERED: Potassium Replacement Protocol 1 EACH MISC MISCELLANE PRN (05:28)
[2024-06-21] MEDS: FUROSEMIDE 10 MG/ML 4 ML VIAL IV STA (06:16)
[2024-06-21] MEDS: POTASSIUM CHLORIDE ER 20 MEQ TAB.ER PO SCH (06:16)
--- NOTE | 2024-06-21 08:28 | P.HPIM ---
History of Present Illness This is a pleasant 52 years old male with past medical history of multiple medical problems as below Presents because of fever and dyspnea and cough and chest pain x 2 weeks. 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 Chambers and Dr. Hobson. However patient kept to get worse. He decided to come to the hospital Currently he is on BiPAP he is coughing through the BiPAP he states he has clear phlegm and also he is breathing fast more than 25 breaths/min. He denies chest pain currently. No abdominal pain or vomiting but reports he has diarrhea, he has 1 loose bowel movement yesterday and he had 1 loose and black bowel movement this morning. No urinary complaint he has dizziness but no headache weakness or numbness No history of smoking. However daily drinking of alcohol is reported, marijuana abuse is also recorded He is currently tachypneic, he had low-grade temperature 99.5. On admission he was saturating 91 on room air but currently BiPAP He has mild leukocytosis of 13,000, hemoglobin dropped to 8.3 with baseline about 10-11. Platelet count 144. Creatinine 3.0 with baseline 3-6. proBNP is elevated at 4500. Chest x-ray showing left lower lobe infiltrate suspicious for pneumonia EKG showing sinus rhythm at [address]-T changes. Patient started on ceftriaxone and Zithromax also he is on aspirin 81 mg. Last echocardiogram from 02/19/2024: Showed ejection fraction of 45 to 50% Review of Systems Review of systems CONSTITUTIONAL: No fever, no malaise, no fatigue. HEENT: No recent visual problems or hearing problems. Denied any sore throat. CARDIOVASCULAR: No orthopnea, PND, no palpitations, no syncope. PULMONARY: No chest wall tenderness , no hemoptysis. GASTROINTESTINAL: No diarrhea, no nausea, no vomiting, no abdominal pain. Normoactive bowel sounds. NEUROLOGICAL: No headaches, no weakness, no numbness. HEMATOLOGICAL: Denies any bleeding or petechiae. GENITOURINARY: Denies any burning micturition, frequency, or urgency. MUSCULOSKELETAL/RHEUMATOLOGICAL: Denies any joint pain, swelling, or any muscle pain. ENDOCRINE: Denies any polyuria or polydipsia. Past Medical History Past Medical History: Atrial Fibrillation, Coronary Artery Disease (CAD), Diabetes Mellitus, Dialysis, Hypertension, Prostate Disorder, Renal Disease Additional Past Medical History / Comment(s): Dialysis Mon, Wed, Fri History of Any Multi-Drug Resistant Organisms: None Reported Past Surgical History: Cholecystectomy, Coronary Bypass/CABG Additional Past Surgical History / Comment(s): 07 ACL ligament replacement, CABG 3 vessel Past Anesthesia/Blood Transfusion Reactions: No Reported Reaction Past Psychological History: Anxiety Smoking Status: Never smoker - Past Family History Father Family Medical History: Cancer Additional Family Medical History / Comment(s): pancreatic Medications and Allergies Home Medications Medication Instructions Recorded Confirmed Type Acetaminophen [Tylenol 8 Hour] 650 mg PO Q6H PRN 02/11/22 12/25/22 History Aspirin EC [Ecotrin Low Dose] 81 mg PO QAM 02/11/22 12/25/22 History Meclizine HCl [Antivert] 25 mg PO BID 02/11/22 12/25/22 History Metoprolol Tartrate [Lopressor] 50 mg PO BID 02/11/22 12/25/22 History Nitroglycerin Sl Tabs [Nitrostat] 0.4 mg SL Q5M PRN 02/11/22 12/25/22 History Pravastatin Sodium [Pravachol] 20 mg PO HS 02/11/22 12/25/22 History Tamsulosin HCl [Flomax] 0.4 mg PO BID 02/11/22 12/25/22 History Sodium Bicarbonate Tab 650 mg PO BID #60 tab 02/20/22 12/25/22 Rx amLODIPine [Norvasc] 5 mg PO QAM 03/18/22 12/25/22 History Budesonide/Formoterol Fumarate 1 puff INHALATION BID 06/05/22 12/25/22 History [Symbicort 160-4.5 Mcg Inhaler] Calcium Acetate 667 mg PO BID 06/05/22 12/25/22 History Torsemide [Demadex] 20 mg PO QAM 11/02/22 12/25/22 History glyBURIDE [Diabeta] 2.5 mg PO AC-BRKFST 11/02/22 12/25/22 History Allergies Allergy/AdvReac Type Severity Reaction Status Date / Time duloxetine [From Cymbalta] Allergy Rash/Hives Verified 06/21/24 08:11 enalaprilat [From Vasotec] Allergy Unknown Verified 06/21/24 08:11 levofloxacin [From Levaquin] Allergy Rash/Hives Verified 06/21/24 08:11 saxagliptin [From Onglyza] Allergy Rash/Hives Verified 06/21/24 08:11 sulfamethoxazole Allergy Rash/Hives Verified 06/21/24 08:11 [From Bactrim] trimethoprim [From Bactrim] Allergy Rash/Hives Verified 06/21/24 08:11 Physical Exam Vitals: Vital Signs Temp Pulse Resp BP Pulse Ox FiO2 06/21/24 07:20 70 18 127/73 98 06/21/24 06:00 98.3 F 70 19 131/88 98 06/21/24 04:22 40 06/21/24 03:05 75 16 139/74 99 06/21/24 02:10 70 20 142/80 98 06/21/24 01:15 40 06/20/24 23:46 80 20 126/59 98 06/20/24 22:30 50 06/20/24 21:52 99.5 F 80 20 123/62 91 L Intake and Output 06/20/24 06/21/24 06/21/24 22:59 06:59 14:59 Other: Weight 72.575 kg GENERAL: The patient is alert and oriented x3, not in any acute distress. Well developed, well nourished. HEENT: Pupils are round and equally reacting to light. EOMI. No scleral icterus. No conjunctival pallor. Normocephalic, atraumatic. No pharyngeal erythema. No thyromegaly. CARDIOVASCULAR: S1 and S2 present. No murmurs, rubs, or gallops. -PULMONARY: Chest is clear to auscultation, bilateral scattered wheezing and crackles ezing , no crackles. Tachypneic, on BiPAP ABDOMEN: Soft, nontender, nondistended, normoactive bowel sounds. No palpable organomegaly. MUSCULOSKELETAL: No joint swelling or deformity. -EXTREMITIES: No cyanosis, clubbing, 3+ bilateral pitting leg edema NEUROLOGICAL: Gross neurological examination did not reveal any focal deficits. SKIN: No rashes. no petechiae. Results CBC & Chem 7: 06/20/24 22:20 06/20/24 22:20 Labs: Abnormal Lab Results - Last 24 Hours (Table) 06/20/24 06/20/24 06/20/24 Range/Units 22:20 22:20 22:20 WBC 13.0 H (3.8-10.6) k/uL RBC 2.76 L (4.30-5.90) m/uL Hgb 8.3 L (13.0-17.5) gm/dL Hct 25.8 L (39.0-53.0) % Plt Count 144 L (150-450) k/uL Neutrophils # 12.5 H (1.3-7.7) k/uL Lymphocytes # 0.2 L (1.0-4.8) k/uL PT 13.2 H (10.0-12.5) sec INR 1.2 H (<1.2) APTT 34.9 H (22.0-30.0) sec Sodium 135 L (137-145) mmol/L Potassium 3.0 L (3.5-5.1) mmol/L Carbon Dioxide 17 L (22-30) mmol/L BUN 70 H (9-20) mg/dL Creatinine 3.03 H (0.66-1.25) mg/dL Glucose 199 H (74-99) mg/dL ALT 50 H (4-49) U/L Troponin I (0.000-0.034) ng/mL Total Protein 6.0 L (6.3-8.2) g/dL Albumin 3.1 L (3.5-5.0) g/dL 03/25/25 Range/Units 22:20 WBC (3.8-10.6) k/uL RBC (4.30-5.90) m/uL Hgb (13.0-17.5) gm/dL Hct (39.0-53.0) % Plt Count (150-450) k/uL Neutrophils # (1.3-7.7) k/uL Lymphocytes # (1.0-4.8) k/uL PT (10.0-12.5) sec INR (<1.2) APTT (22.0-30.0) sec Sodium (137-145) mmol/L Potassium (3.5-5.1) mmol/L Carbon Dioxide (22-30) mmol/L BUN (9-20) mg/dL Creatinine (0.66-1.25) mg/dL Glucose (74-99) mg/dL ALT (4-49) U/L Troponin I 0.104 H* (0.000-0.034) ng/mL Total Protein (6.3-8.2) g/dL Albumin (3.5-5.0) g/dL Assessment and Plan Assessment: Left lower lobe pneumonia Bilateral pulmonary congestion and edema for acute CHF, which is suspected both systolic and diastolic dysfunction with slightly lowered ejection fraction Acute hypoxic respiratory failure secondary to above Normocytic anemia, chronic with recent worsening and black stool. Rule out GI bleed Alcohol use disorder Diabetes mellitus Hypertension Hyperlipidemia History of paroxysmal atrial fibrillation Fibromyalgia History of pneumonia Chronic low back pain and degenerative disc disease of the lumbar spine. Plan: Continue with ceftriaxone and Zithromax Check pro- Calcitonin and sputum culture Start CIWA protocol and thiamine Start Protonix. Monitor hemoglobin and check occult blood in stool. Will do anemia workup and if keep dropping hemoglobin will hold aspirin Consult nephrology team and cardiology from emergency room Will ask also pulmonary service to evaluate the patient Labs and medication were reviewed.. Continue same treatment. Continue with symptomatic treatment. Resume home medication. Monitor labs and vitals. DVT and GI prophylaxis. Further recommendations as per clinical course of the patient DVT prophylaxis: noSubcutaneous heparin in view of possible GI bleed. Will continue with mechanical GI Prophylaxis: Protonix PT/OT: Pending Prognosis is guarded
[2024-06-21] MEDS ORDERED: LORazepam 2 MG/ML INJ IV PRN ×3 (08:29)
[2024-06-21] MEDS: MECLIZINE 25 MG TAB PO SCH (08:39)
[2024-06-21] MEDS: TAMSULOSIN 0.4 MG CAP.ER.24H PO SCH (08:39)
[2024-06-21] MEDS: TORSEMIDE 20 MG TAB PO SCH (08:39)
[2024-06-21] MEDS: amLODIPine 5 MG TAB PO SCH (08:40)
[2024-06-21] MEDS: METOPROLOL TARTRATE 50 MG TAB PO SCH (08:40)
[2024-06-21] MEDS: AZITHROMYCIN 500 MG TAB PO SCH (08:40)
[2024-06-21] MEDS: ASPIRIN 81 MG PO SCH (08:41)
[2024-06-21] MEDS: SODIUM BICARBONATE TAB 650 MG TAB PO SCH ×2 (08:41→21:37)
[2024-06-21] MEDS: glipiZIDE 5 MG TAB PO SCH ×2 (08:42→11:03)
[2024-06-21] MEDS: CALCIUM ACETATE 667 MG PO SCH (08:47)
[2024-06-21] MEDS: IPRATROPIUM-ALBUTEROL 3 ML NEB INHALATION SCH (08:54)
[2024-06-21] MEDS: SYMBICORT 160-4.5 MCG INHALER INHALATION SCH (08:55)
--- NOTE | 2024-06-21 10:21 | P.NPCON ---
History of Present Illness - Reason for Consult chronic renal failure - History of Present Illness Reason for consultation: Chronic kidney disease History of present illness: Patient is a 78-year-old male seen in renal consultation for chronic kidney disease. Patient has chronic kidney disease with baseline creatinine in the range of 3-3.5. Patient did have a kidney biopsy in the past which showed ATN superimposed on chronic injury with acute inflammation suggestive of pyelonephritis/reflux nephropathy. Patient came to the hospital due to generalized weakness and shortness of breath. Patient states shortness of breath has been worsening over the last 2 weeks. Oral intake has been poor the last few days. He does admit to a fever of 100 F at home. Renal function is stable and at baseline. He has been voiding. Denies gross hematuria or dysuria. He does admit to taking torsemide 40 mg daily at home. Admits to mild edema in the lower extremities. Denies chest pain. He does have history of diabetes. Also has history of coronary disease status post CABG. He is currently on antibiotics for pneumonia. He tested negative for influenza, COVID and RSV. Vital signs are stable. General: No acute distress. HEENT: Head exam is unremarkable. O2 mask noted. LUNGS: No audible rhonchi or wheezes. HEART: Rate and Rhythm are regular. ABDOMEN: Nontender. EXTREMITITES: 1+ edema. Past Medical History Past Medical History: Atrial Fibrillation, Coronary Artery Disease (CAD), Diabetes Mellitus, Dialysis, Hypertension, Prostate Disorder, Renal Disease Additional Past Medical History / Comment(s): Dialysis Mon, Wed, Wed History of Any Multi-Drug Resistant Organisms: None Reported Past Surgical History: Cholecystectomy, Coronary Bypass/CABG Additional Past Surgical History / Comment(s): 07 ACL ligament replacement, CABG 3 vessel Past Anesthesia/Blood Transfusion Reactions: No Reported Reaction Past Psychological History: Anxiety Smoking Status: Never smoker - Past Family History Father Family Medical History: Cancer Additional Family Medical History / Comment(s): pancreatic Medications and Allergies Home Medications Medication Instructions Recorded Confirmed Type Aspirin EC [Ecotrin Low Dose] 81 mg PO QAM 02/11/22 06/21/24 History Metoprolol Tartrate [Lopressor] 25 mg PO BID 02/11/22 06/21/24 History Nitroglycerin Sl Tabs [Nitrostat] 0.4 mg SL Q5M PRN 02/11/22 06/21/24 History Pravastatin Sodium [Pravachol] 40 mg PO HS 02/11/22 06/21/24 History Tamsulosin HCl [Flomax] 0.4 mg PO BID 02/11/22 06/21/24 History amLODIPine [Norvasc] 5 mg PO QAM 03/18/22 06/21/24 History Budesonide/Formoterol Fumarate 2 puff INHALATION RT-BID 06/05/22 06/21/24 History [Symbicort 160-4.5 Mcg Inhaler] Torsemide [Demadex] 20 mg PO BID 11/02/22 06/21/24 History glyBURIDE [Diabeta] 2.5 mg PO Q3D 11/02/22 06/21/24 History Apixaban [Eliquis] 2.5 mg PO BID 06/21/24 06/21/24 History Azelastine HCl [Astelin Nasal 1 spray EA NOSTRIL BID 06/21/24 06/21/24 History [place]] Docusate [Colace] 100 mg PO HS 06/21/24 06/21/24 History Losartan [Cozaar] 25 mg PO DAILY 06/21/24 06/21/24 History Mv-Min/Folic/K1/Lycopen/Lutein 1 tab PO DAILY 06/21/24 06/21/24 History [Centrum Silver Men Tablet] Sodium Bicarbonate Tab 650 mg PO HS 06/21/24 06/21/24 History Allergies Allergy/AdvReac Type Severity Reaction Status Date / Time duloxetine [From Cymbalta] Allergy Rash/Hives Verified 06/21/24 08:11 enalaprilat [From Vasotec] Allergy Unknown Verified 06/21/24 08:11 levofloxacin [From Levaquin] Allergy Rash/Hives Verified 06/21/24 08:11 saxagliptin [From Onglyza] Allergy Rash/Hives Verified 06/21/24 08:11 sulfamethoxazole Allergy Rash/Hives Verified 06/21/24 08:11 [From Bactrim] trimethoprim [From Bactrim] Allergy Rash/Hives Verified 06/21/24 08:11 Physical Exam Vitals: Vital Signs Temp Pulse Pulse Resp BP BP Pulse Ox 06/21/24 09:16 72 06/21/24 08:57 74 06/21/24 08:55 06/21/24 08:44 80 22 144/102 96 06/21/24 07:20 70 18 127/73 98 06/21/24 06:00 98.3 F 70 19 131/88 98 06/21/24 04:22 06/21/24 03:05 75 16 139/74 99 06/21/24 02:10 70 20 142/80 98 06/21/24 01:15 06/21/24 01:14 98.7 F 61 23 130/79 96 06/20/24 23:46 80 20 126/59 98 06/20/24 22:30 06/20/24 21:52 99.5 F 80 20 123/62 91 L FiO2 06/21/24 09:16 06/21/24 08:57 06/21/24 08:55 40 06/21/24 08:44 06/21/24 07:20 06/21/24 06:00 06/21/24 04:22 40 06/21/24 03:05 06/21/24 02:10 06/21/24 01:15 40 06/21/24 01:14 06/20/24 23:46 06/20/24 22:30 50 06/20/24 21:52 Intake and Output 06/20/24 06/21/24 06/21/24 22:59 06:59 14:59 Other: Weight 72.575 kg 72.575 kg Results - Lab Results Most recent lab results Calcium 8.5 mg/dL (8.4-10.2) 06/20/24 22:20 Magnesium 2.0 mg/dL (1.6-2.3) 06/20/24 22:20 06/20/24 22:20 06/20/24 22:20 Assessment and Plan Plan: Assessment: 1. Chronic kidney disease stage IV baseline creatinine 3-3.5 secondary to nephrosclerosis and diabetic kidney disease. Kidney biopsy in the past showed ATN superimposed on chronic injury with acute inflammation suggestive of polynephritis/reflux nephropathy. 2. Hypokalemia from diuresis and poor intake. 3. Metabolic acidosis secondary to chronic kidney disease. 4. Acute hypoxic respiratory failure. 5. Pneumonia on antibiotics. 6. Anemia of chronic kidney disease. 7. Hypertension with chronic kidney disease. Stable. 8. Diabetes mellitus. 9. Lower extremity edema. Plan: Encouraged oral intake. Decrease torsemide to 20 mg once daily. Wean FiO2. Check iron studies. Replace potassium. Avoid nephrotoxins. Continue to monitor renal function and urine output. Increase bicarb frequency to twice daily. Thank you for the consultation. I will continue to follow the patient with you during his hospital stay.
[2024-06-21] MEDS: THIAMINE 100 MG in SODIUM CHLORIDE 0.9% 50 ML IVPB SCH (10:58)
[2024-06-21] MEDS: PANTOPRAZOLE 40 MG/10 ML VIAL IVP SCH (11:10)
--- NOTE | 2024-06-21 11:28 | P.CRDCN ---
History of Present Illness Consult date: 06/21/24 History of present illness: The patient is a pleasant 78-year-old gentleman who is known to our service from before with extensive cardiovascular history consistent of history of CAD status post CABG with unknown details at this point as well as cardiomyopathy with EF b etween 45 to 50% and history of heart failure and advanced chronic kidney disease as well as permanent atrial fibrillation and multiple comorbid conditions. He presented to the hospital with 3 to 4 days history of progressive exertional dyspnea associated with cough with no sputum production and no fever and no chills but congestions and also bilateral lower extremities edema. No change in the weight according to him. No symptoms of chest pain or chest discomfort or dizziness or lightheadedness or any feeling of heart racing or fluttering or presyncope or syncope. He underwent further evaluation including EKG showing atrial fibrillation with diffuse nonspecific ST and T wave abnormalities and also he underwent chest x-ray showed pneumonia. His creatinine is elevated and he is known to have chronic kidney disease. He is not on dialysis. He was seen by the nephrology service and he received 1 dose of IV Lasix and he was placed on oral diuretics. The physical examination is remarkable for irregular rhythm with a very distant heart sounds and heart to hear any cardiac murmurs because of extensive wheezing and extensive crackles bilaterally. Otherwise the physical examination is remarkable for severe bilateral lower extremities pitting edema Assessment Acute hypoxic respiratory failure Heart failure with HFrEF Permanent atrial fibrillation with controlled heart rate CAD status post CABG Advanced chronic kidney disease Multiple comorbid conditions Plan Continue current medical regimen. Continue monitor the kidney function and electrolytes The patient stated that he underwent an echo recently in the office we are in process of getting a copy of it and that was performed last week Obtain previous medical records as well Further recommendation to follow Past Medical History Past Medical History: Atrial Fibrillation, Coronary Artery Disease (CAD), Diabetes Mellitus, Dialysis, Hypertension, Prostate Disorder, Renal Disease Additional Past Medical History / Comment(s): Dialysis Mon, Wed, Wed History of Any Multi-Drug Resistant Organisms: None Reported Past Surgical History: Cholecystectomy, Coronary Bypass/CABG Additional Past Surgical History / Comment(s): ACL ligament replacement, CABG 3 vessel Past Anesthesia/Blood Transfusion Reactions: No Reported Reaction Past Psychological History: Anxiety Smoking Status: Never smoker - Past Family History Father Family Medical History: Cancer Additional Family Medical History / Comment(s): pancreatic Medications and Allergies Home Medications Medication Instructions Recorded Confirmed Type Aspirin EC [Ecotrin Low Dose] 81 mg PO QAM 02/11/22 06/21/24 History Metoprolol Tartrate [Lopressor] 25 mg PO BID 02/11/22 06/21/24 History Nitroglycerin Sl Tabs [Nitrostat] 0.4 mg SL Q5M PRN 02/11/22 06/21/24 History Pravastatin Sodium [Pravachol] 40 mg PO HS 02/11/22 06/21/24 History Tamsulosin HCl [Flomax] 0.4 mg PO BID 02/11/22 06/21/24 History amLODIPine [Norvasc] 5 mg PO QAM 03/18/22 06/21/24 History Budesonide/Formoterol Fumarate 2 puff INHALATION RT-BID 06/05/22 06/21/24 History [Symbicort 160-4.5 Mcg Inhaler] Torsemide [Demadex] 20 mg PO BID 11/02/22 06/21/24 History glyBURIDE [Diabeta] 2.5 mg PO Q3D 11/02/22 06/21/24 History Apixaban [Eliquis] 2.5 mg PO BID 06/21/24 06/21/24 History Azelastine HCl [Astelin Nasal 1 spray EA NOSTRIL BID 06/21/24 06/21/24 History [place]] Docusate [Colace] 100 mg PO HS 06/21/24 06/21/24 History Losartan [Cozaar] 25 mg PO DAILY 06/21/24 06/21/24 History Mv-Min/Folic/K1/Lycopen/Lutein 1 tab PO DAILY 06/21/24 06/21/24 History [Centrum Silver Men Tablet] Sodium Bicarbonate Tab 650 mg PO HS 06/21/24 06/21/24 History Allergies Allergy/AdvReac Type Severity Reaction Status Date / Time duloxetine [From Cymbalta] Allergy Rash/Hives Verified 06/21/24 08:11 enalaprilat [From Vasotec] Allergy Unknown Verified 06/21/24 08:11 levofloxacin [From Levaquin] Allergy Rash/Hives Verified 06/21/24 08:11 saxagliptin [From Onglyza] Allergy Rash/Hives Verified 06/21/24 08:11 sulfamethoxazole Allergy Rash/Hives Verified 06/21/24 08:11 [From Bactrim] trimethoprim [From Bactrim] Allergy Rash/Hives Verified 06/21/24 08:11 Physical Exam Vitals: Vital Signs Temp Pulse Pulse Resp BP BP Pulse Ox 06/21/24 11:14 64 20 118/61 99 06/21/24 09:16 72 06/21/24 08:57 74 06/21/24 08:55 06/21/24 08:44 80 22 144/102 96 06/21/24 07:20 70 18 127/73 98 06/21/24 06:00 98.3 F 70 19 131/88 98 06/21/24 04:22 06/21/24 03:05 75 16 139/74 99 06/21/24 02:10 70 20 142/80 98 06/21/24 01:15 06/21/24 01:14 98.7 F 61 23 130/79 96 06/20/24 23:46 80 20 126/59 98 06/20/24 22:30 06/20/24 21:52 99.5 F 80 20 123/62 91 L FiO2 06/21/24 11:14 06/21/24 09:16 06/21/24 08:57 06/21/24 08:55 40 06/21/24 08:44 06/21/24 07:20 06/21/24 06:00 06/21/24 04:22 40 06/21/24 03:05 06/21/24 02:10 06/21/24 01:15 40 06/21/24 01:14 06/20/24 23:46 06/20/24 22:30 50 06/20/24 21:52 Intake and Output 06/20/24 06/21/24 06/21/24 22:59 06:59 14:59 Other: Weight 72.575 kg 72.575 kg Results 06/20/24 22:20 06/20/24 22:20 Cardiac Enzymes 06/20/24 06/20/24 Range/Units 22:20 22:20 AST 30 (17-59) U/L Troponin I 0.104 H* (0.000-0.034) ng/mL Coagulation 06/20/24 Range/Units 22:20 PT 13.2 H (10.0-12.5) sec APTT 34.9 H (22.0-30.0) sec CBC 06/20/24 Range/Units 22:20 WBC 13.0 H (3.8-10.6) k/uL RBC 2.76 L (4.30-5.90) m/uL Hgb 8.3 L (13.0-17.5) gm/dL Hct 25.8 L (39.0-53.0) % Plt Count 144 L (150-450) k/uL Comprehensive Metabolic Panel 06/20/24 Range/Units 22:20 Sodium 135 L (137-145) mmol/L Potassium 3.0 L (3.5-5.1) mmol/L Chloride 103 (98-107) mmol/L Carbon Dioxide 17 L (22-30) mmol/L BUN 70 H (9-20) mg/dL Creatinine 3.03 H (0.66-1.25) mg/dL Glucose 199 H (74-99) mg/dL Calcium 8.5 (8.4-10.2) mg/dL AST 30 (17-59) U/L ALT 50 H (4-49) U/L Alkaline Phosphatase 70 (38-126) U/L Total Protein 6.0 L (6.3-8.2) g/dL Albumin 3.1 L (3.5-5.0) g/dL Current Medications Generic Name Dose Route Start Last Admin Trade Name Freq PRN Reason Stop Dose Admin Albuterol/Ipratropium 3 ml 06/21/24 08:00 06/21/24 08:54 Ipratropium-Albuterol 3 Ml Neb INHALATION 3 ml RT-QID JUMA Administration Amlodipine Besylate 5 mg 06/21/24 09:00 06/21/24 08:40 Amlodipine 5 Mg Tab PO 5 mg QAM JUMA Administration Aspirin 81 mg 06/21/24 09:00 06/21/24 08:41 Aspirin 81 Mg PO 81 mg QAM JUMA Administration Azithromycin 500 mg 06/21/24 09:00 06/21/24 08:40 Azithromycin 500 Mg Tab PO 06/22/24 09:01 500 mg DAILY JUMA Administration Protocol Budesonide/Formoterol Fumarate 1 puff 06/21/24 08:00 06/21/24 08:55 Symbicort 160-4.5 Mcg Inhaler INHALATION Not Given RT-BID JUMA Glipizide 2.5 mg 06/21/24 09:00 06/21/24 11:03 Glipizide 5 Mg Tab PO Not Given Q72H JUMA Sodium Chloride 1,000 mls @ 20 mls/hr 06/21/24 01:00 06/21/24 01:15 Saline 0.9% IV 20 mls/hr .Q24H JUMA Administration Ceftriaxone Sodium 2 gm/ 50 mls @ 100 mls/hr 06/21/24 22:00 Sodium Chloride IVPB 06/24/24 22:29 Q24H JUMA Protocol Lorazepam 1 mg 06/21/24 08:29 Lorazepam 2 Mg/Ml Inj IV Q2HR PRN CIWA 8 or 9 Lorazepam 1 mg 06/21/24 08:29 Lorazepam 2 Mg/Ml Inj IV Q1HR PRN CIWA 10 to 15 Lorazepam 2 mg 06/21/24 08:29 Lorazepam 2 Mg/Ml Inj IV 06/23/24 08:30 Q10M PRN CIWA 16 or higher Meclizine HCl 25 mg 06/21/24 09:00 06/21/24 08:39 Meclizine 25 Mg Tab PO 25 mg BID JUMA Administration Metoprolol Tartrate 25 mg 06/21/24 21:00 Metoprolol Tartrate 25 Mg Tab PO BID JUMA Miscellaneous Information 1 each 06/21/24 01:00 Pneumonia Protocol Utilized 1 Each Misc PO ONCE PRN Per Protocol Miscellaneous Information 1 each 06/21/24 05:28 Potassium Replacement Protocol 1 Each Misc MISCELLANE DAILY PRN Per Protocol Protocol Pantoprazole Sodium 40 mg 06/21/24 09:00 06/21/24 11:10 Pantoprazole 40 Mg/10 Ml Vial IVP 40 mg BID JUMA Administration Pravastatin Sodium 40 mg 06/21/24 21:00 Pravastatin Sodium 40 Mg Tab PO HS JUMA Sodium Bicarbonate 650 mg 06/21/24 21:00 Sodium Bicarbonate Tab 650 Mg Tab PO BID JUMA Tamsulosin HCl 0.4 mg 06/21/24 09:00 06/21/24 08:39 Tamsulosin 0.4 Mg Cap.Er.24h PO 0.4 mg BID JUMA Administration Torsemide 20 mg 06/22/24 09:00 Torsemide 20 Mg Tab PO DAILY JUMA Intake and Output 06/20/24 06/21/24 06/21/24 22:59 06:59 14:59 Other: Weight 72.575 kg 72.575 kg 06/20/24 22:20 06/20/24 22:20
--- NOTE | 2024-06-21 14:06 | P.CNPUL ---
History of Present Illness Consult date: 06/21/24 Requesting physician: Erasmo Downs Reason for consult: dyspnea, hypoxemia, pneumonia, abnormal CXR/CT Chief complaint: Shortness of breath. History of present illness: Pulmonary consultation dated June 21, 2024. 78-year-old male who follows with a family doctor in [place], who recently retired, as well as Dr. Cortés in cardiology, my partner, and Dr. Rodriguez in nephrology. The patient presented to the emergency department, at about 10:00 PM, on June 20. He came in with shortness of breath. He was brought in by EMS. The patient states that he could only walk just a few feet before coming short of breath. It had been going on for a couple of days, and maybe a bit longer. He got progressively worse, so the patient came in to be evaluated. He is seen in the emergency department, room 22. The patient was initially on BiPAP, settings of 12/6, and 40%. When we saw him in the emergency department, he was just getting off the bedside commode, and was not wearing any oxygen whatsoever. The patient has no history of tobacco use, and he does not use home oxygen. I asked him what he sees my partner for, and he says that he is short of breath, primarily from heart disease. He did have an elevated procalcitonin level of 6.60. His BNP was quite high at 84,500. He was placed on azithromycin and Rocephin. Current laboratory data includes a white count 13, hemoglobin 8. 3, hematocrit 25.8, and a platelet count of 144,000. Sodium 135, potassium 3, chlorides 103, CO2 17, anion gap 15, BUN 70, creatinine 3.03. Glucose is 199. Troponin was 0.104. ALT was 50. Viral screen was negative. Chest x-ray in my opinion, showed diffuse bilateral infiltrates, with a predominance in the left lower lobe. In addition to azithromycin and Rocephin, the patient was given Symbicort, updrafts with DuoNeb, and Lasix. Review of Systems REVIEW OF SYSTEMS: CONSTITUTIONAL: [Negative.] NEUROLOGIC: [ Negative.] HEENT: [ Negative.] CARDIAC: [Negative.] PULMONARY: Shortness of breath on exertion, nonproductive cough. GI: [Negative.] : [Negative.] RHEUMATOLOGIC: [ Negative.] IMMUNOLOGIC: [ Negative.] ENDOCRINE: [Negative. ] DERMATOLOGIC: [Negative.] Past Medical History Past Medical History: Atrial Fibrillation, Coronary Artery Disease (CAD), Diabetes Mellitus, Dialysis, Hypertension, Prostate Disorder, Renal Disease Additional Past Medical History / Comment(s): Dialysis Mon, Wed, Fri History of Any Multi-Drug Resistant Organisms: None Reported Past Surgical History: Cholecystectomy, Coronary Bypass/CABG Additional Past Surgical History / Comment(s): 07 ACL ligament replacement, CABG 3 vessel Past Anesthesia/Blood Transfusion Reactions: No Reported Reaction Past Psychological History: Anxiety Smoking Status: Never smoker - Past Family History Father Family Medical History: Cancer Additional Family Medical History / Comment(s): pancreatic Medications and Allergies Home Medications Medication Instructions Recorded Confirmed Type Aspirin EC [Ecotrin Low Dose] 81 mg PO QAM 02/11/22 06/21/24 History Metoprolol Tartrate [Lopressor] 25 mg PO BID 02/11/22 06/21/24 History Nitroglycerin Sl Tabs [Nitrostat] 0.4 mg SL Q5M PRN 02/11/22 06/21/24 History Pravastatin Sodium [Pravachol] 40 mg PO HS 02/11/22 06/21/24 History Tamsulosin HCl [Flomax] 0.4 mg PO BID 02/11/22 06/21/24 History amLODIPine [Norvasc] 5 mg PO QAM 03/18/22 06/21/24 History Budesonide/Formoterol Fumarate 2 puff INHALATION RT-BID 06/05/22 06/21/24 History [Symbicort 160-4.5 Mcg Inhaler] Torsemide [Demadex] 20 mg PO BID 11/02/22 06/21/24 History glyBURIDE [Diabeta] 2.5 mg PO Q3D 11/02/22 06/21/24 History Apixaban [Eliquis] 2.5 mg PO BID 06/21/24 06/21/24 History Azelastine HCl [Astelin Nasal 1 spray EA NOSTRIL BID 06/21/24 06/21/24 History Nenzel] Docusate [Colace] 100 mg PO HS 06/21/24 06/21/24 History Losartan [Cozaar] 25 mg PO DAILY 06/21/24 06/21/24 History Mv-Min/Folic/K1/Lycopen/Lutein 1 tab PO DAILY 06/21/24 06/21/24 History [Centrum Silver Men Tablet] Sodium Bicarbonate Tab 650 mg PO HS 06/21/24 06/21/24 History Allergies Allergy/AdvReac Type Severity Reaction Status Date / Time duloxetine [From Cymbalta] Allergy Rash/Hives Verified 06/21/24 08:11 enalaprilat [From Vasotec] Allergy Unknown Verified 06/21/24 08:11 levofloxacin [From Levaquin] Allergy Rash/Hives Verified 06/21/24 08:11 saxagliptin [From Onglyza] Allergy Rash/Hives Verified 06/21/24 08:11 sulfamethoxazole Allergy Rash/Hives Verified 06/21/24 08:11 [From Bactrim] trimethoprim [From Bactrim] Allergy Rash/Hives Verified 06/21/24 08:11 Physical Exam Osteopathic Statement: *. No significant issues noted on an osteopathic structural exam other than those noted in the History and Physical/Consult. Vitals: Vital Signs Temp Pulse Pulse Resp BP BP Pulse Ox 06/21/24 13:35 97.1 F L 77 17 136/80 100 06/21/24 13:04 98.4 F 62 20 117/54 99 06/21/24 12:13 60 06/21/24 12:11 62 18 124/60 100 06/21/24 11:59 66 06/21/24 11:58 06/21/24 11:14 64 20 118/61 99 06/21/24 09:16 72 06/21/24 08:57 74 06/21/24 08:55 06/21/24 08:44 80 22 144/102 96 06/21/24 07:20 70 18 127/73 98 06/21/24 06:00 98.3 F 70 19 131/88 98 06/21/24 04:22 06/21/24 03:05 75 16 139/74 99 06/21/24 02:10 70 20 142/80 98 06/21/24 01:15 06/21/24 01:14 98.7 F 61 23 130/79 96 06/20/24 23:46 80 20 126/59 98 06/20/24 22:30 06/20/24 21:52 99.5 F 80 20 123/62 91 L FiO2 06/21/24 13:35 40 06/21/24 13:04 06/21/24 12:13 06/21/24 12:11 06/21/24 11:59 06/21/24 11:58 40 06/21/24 11:14 06/21/24 09:16 06/21/24 08:57 06/21/24 08:55 40 06/21/24 08:44 06/21/24 07:20 06/21/24 06:00 06/21/24 04:22 40 06/21/24 03:05 06/21/24 02:10 06/21/24 01:15 40 06/21/24 01:14 06/20/24 23:46 06/20/24 22:30 50 06/20/24 21:52 Intake and Output 06/20/24 06/21/24 06/21/24 22:59 06:59 14:59 Other: # Bowel Movements 1 Weight 72.575 kg 72.575 kg No acute distress, oriented 3. Is able to speak in full sentences. No audible wheezing. Cough is dry. HEENT examination is grossly unremarkable. Mucous membranes are moist. No oral lesions. Neck supple. Full range of motion. No adenopathy thyromegaly or neck vein distention. Cardiovascular examination reveals regular rhythm rate. S1-S2 normal. No S3 or S4. No discernible murmur noted. Heart sounds are distant. Lungs reveal scattered bilateral rhonchi and crackles. Breath sounds equal. No distinct wheezes noted. Abdomen soft bowel sounds are heard. No masses or tenderness. Extremities are intact. No cyanosis clubbing or edema. Skin is without rash or lesion. Neurologic examination is brief but nonfocal. Results - Laboratory Findings CBC and BMP: 06/20/24 22:20 06/20/24 22:20 PT/INR, D-dimer PT 13.2 sec (10.0-12.5) H 06/20/24 22:20 INR 1.2 (<1.2) H 06/20/24 22:20 Abnormal lab findings: Abnormal Labs 06/20/24 06/20/24 06/20/24 22:20 22:20 22:20 WBC 13.0 H RBC 2.76 L Hgb 8.3 L Hct 25.8 L Plt Count 144 L Neutrophils # 12.5 H Lymphocytes # 0.2 L PT 13.2 H INR 1.2 H APTT 34.9 H Sodium 135 L Potassium 3.0 L Carbon Dioxide 17 L BUN 70 H Creatinine 3.03 H Glucose 199 H ALT 50 H Troponin I Total Protein 6.0 L Albumin 3.1 L Procalcitonin 06/20/24 06/21/24 22:20 02:10 WBC RBC Hgb Hct Plt Count Neutrophils # Lymphocytes # PT INR APTT Sodium Potassium Carbon Dioxide BUN Creatinine Glucose ALT Troponin I 0.104 H* Total Protein Albumin Procalcitonin 6.60 H - Diagnostic Findings Chest x-ray: image reviewed Assessment and Plan Assessment: Acute hypoxemic respiratory failure, likely multifactorial, in part related to pneumonia, left lower lobe, fluid overload/CHF, and renal failure. History of coronary artery disease, status post CABG. History of chronic atrial fibrillation. History of hypertension. History of diabetes mellitus. History of chronic renal failure, with Wednesday, Wednesday, and Wednesday hemodialysis. History of chronic anxiety. Lifelong non-smoker. History of hyperlipidemia. History of BPH. Plan: Plan dated June 21, 2024. The patient is seen in the emergency department. The patient was initially placed on BiPAP, but when we saw the patient, she was actually on room air. The patient could speak in full sentences. The patient follows with his primary care physician, who recently retired, cardiology, urology, nephrology, and pulmonary medicine. The patient is a lifelong non-smoker, and states he does not have a history of chronic lung disease. He does not use home oxygen. His procalcitonin level was 6.60, and his BNP was 84,500. He was placed on breathing treatments, and antibiotics. We will continue to follow. Prognosis is guarded. Labs, x-rays, and medications are all reviewed. Dictation was produced using [employer] software. Please excuse any grammatical, word or spelling errors. Time with Patient: Greater than 30
[2024-06-21 15:36] LABS: % Iron Saturation 3.08 (15.00-50.00)
[2024-06-21] MEDS ORDERED: TORSEMIDE 20 MG TAB PO SCH (16:00)
[2024-06-21 16:33] LABS: Glucose,Whole Blood 158 mg/dL (70-110)
[2024-06-21 20:54] LABS: Glucose,Whole Blood 129 mg/dL (70-110)
[2024-06-21] MEDS ORDERED: PRAVASTATIN SODIUM 40 MG TAB PO SCH (21:00)
[2024-06-21] MEDS ORDERED: SODIUM BICARBONATE TAB 650 MG TAB PO SCH (21:00)
[2024-06-21] MEDS: METOPROLOL TARTRATE 25 MG TAB PO SCH (21:37)
[2024-06-21] MEDS: PRAVASTATIN SODIUM 40 MG TAB PO SCH (21:37)
[2024-06-21] MEDS ORDERED: LORazepam 1 MG/0.5 ML VIAL IV PRN ×3 (23:04→23:05)
[2024-06-22 06:31] LABS: Glucose,Whole Blood 95 mg/dL (70-110)
[2024-06-22 09:24] LABS: Basophils % (A) 0 %; Eosinophils % (A) 1 %; HCT 25.6 % (39.0-53.0); HGB 7.6 gm/dL (13.0-17.5); Hypochromasia Moderate; Lymphocytes # (A) 0.8 k/uL (1.0-4.8); Lymphocytes % (A) 15 %; MCHC 29.8 g/dL (31.0-37.0); MCV 97.6 fL (80.0-100.0); Mean Platelet Volume 9.2; Monocytes # (A) 0.3 k/uL (0-1.0); Monocytes % (A) 6 %; Neutrophils # (A) 4.2 k/uL (1.3-7.7); Neutrophils % (A) 78 %; Platelet Count 129 k/uL (150-450); RBC 2.62 m/uL (4.30-5.90); RDW 15.3 % (11.5-15.5); WBC 5.4 k/uL (3.8-10.6)
--- NOTE | 2024-06-22 09:29 | P.PN ---
Subjective Progress Note Date: 06/22/24 The patient is a pleasant 78-year-old gentleman who is known to our service from before with extensive cardiovascular history consistent of history of CAD status post CABG with unknown details at this point as well as cardiomyopathy with EF between 45 to 50% and history of heart failure and advanced chronic kidney disease as well as permanent atrial fibrillation and multiple comorbid conditions. He presented to the hospital with 3 to 4 days history of progressive exertional dyspnea associated with cough with no sputum production and no fever and no chills but congestions and also bilateral lower extremities edema. No change in the weight according to him. No symptoms of chest pain or chest discomfort or dizziness or lightheadedness or any feeling of heart racing or fluttering or presyncope or syncope. He underwent further evaluation including EKG showing atrial fibrillation with diffuse nonspecific ST and T wave abnormalities and also he underwent chest x-ray showed pneumonia. His creat inine is elevated and he is known to have chronic kidney disease. He is not on dialysis. He was seen by the nephrology service and he received 1 dose of IV Lasix and he was placed on oral diuretics. The physical examination is remarkable for irregular rhythm with a very distant heart sounds and heart to hear any cardiac murmurs because of extensive wheezing and extensive crackles bilaterally. Otherwise the physical examination is remarkable for severe bilateral lower extremities pitting edema June 22, 2024 The patient was seen and evaluated this morning. Overall he is feeling better. The shortness of breath is slightly better. No other cardiovascular symptoms including any chest pain. Hemodynamically he is stable with a hemoglobin has came down and for that reason and for the reason that he was tested positive for blood in the stool oral anticoagulation with Eliquis is on hold at this point. He is on oral diuretics. The physical examination is remarkable for bilateral expiratory wheezing and no edema was noted in the lower extremities. Assessment Acute hypoxic respiratory failure Heart failure with HFrEF Permanent atrial fibrillation with controlled heart rate CAD status post CABG Advanced chronic kidney disease Anemia Plan Continue current medical regimen. Continue monitor the kidney function and electrolytes Continue monitor the hemoglobin as well Continue oral diuretics Follow-up with the patient Objective - Vital Signs Vital signs: Vital Signs Temp 98.2 F 06/22/24 08:00 Pulse 86 06/22/24 08:39 Resp 17 06/22/24 08:00 BP 138/103 06/22/24 08:00 Pulse Ox 100 06/22/24 08:24 FiO2 40 06/21/24 13:35 Intake & Output 06/21/24 06/22/24 06/22/24 18:59 06:59 18:59 Intake Total 240 Output Total 400 Balance -400 240 Weight 70.08 kg Intake: Oral 240 Output: Urine 400 Other: # Voids 1 # Bowel Movements 1 - Labs CBC & Chem 7: 06/22/24 08:46 06/20/24 22:20 Labs: Abnormal Lab Results - Last 24 Hours (Table) 06/21/24 06/21/24 06/21/24 Range/Units 02:10 08:28 16:32 RBC (4.30-5.90) m/uL Hgb (13.0-17.5) gm/dL Hct (39.0-53.0) % MCHC (31.0-37.0) g/dL Plt Count (150-450) k/uL Lymphocytes # (1.0-4.8) k/uL POC Glucose (mg/dL) 158 H (70-110) mg/dL Iron 8 L (65-175) UG/DL % Saturation 3.08 L (15.00-50.00) Transferrin 186.0 L (204.0-354.0) mg/dL Procalcitonin 6.60 H (0.02-0.50) ng/mL 06/21/24 06/22/24 Range/Units 20:49 08:46 RBC 2.62 L (4.30-5.90) m/uL Hgb 7.6 L (13.0-17.5) gm/dL Hct 25.6 L (39.0-53.0) % MCHC 29.8 L (31.0-37.0) g/dL Plt Count 129 L (150-450) k/uL Lymphocytes # 0.8 L (1.0-4.8) k/uL POC Glucose (mg/dL) 129 H (70-110) mg/dL Iron (65-175) UG/DL % Saturation (15.00-50.00) Transferrin (204.0-354.0) mg/dL Procalcitonin (0.02-0.50) ng/mL Microbiology - Last 24 Hours (Table) 06/20/24 23:31 Blood Culture Gram Stain - Preliminary Blood Blood Culture - Preliminary Molecular ID
[2024-06-22] MEDS: TORSEMIDE 20 MG TAB PO SCH (09:33)
[2024-06-22 10:05] LABS: African American GFR (CKD) 19 (>60 ml/min/1.73 sqM); Anion Gap 11 mmol/L; Blood Urea Nitrogen 80 mg/dL (9-20); Calcium 8.5 mg/dL (8.4-10.2); Carbon Dioxide 20 mmol/L (22-30); Chloride 108 mmol/L (98-107); Glucose 93 mg/dL (74-99); Magnesium 2.2 mg/dL (1.6-2.3); Non-African American GFR(CKD) 17 (>60 ml/min/1.73 sqM); Potassium 2.9 mmol/L (3.5-5.1); Sodium 139 mmol/L (137-145)
--- NOTE | 2024-06-22 10:11 | P.PN ---
Subjective This is a pleasant 78 years old male with past medical history of multiple medical problems as below Presents because of fever and dyspnea and cough and chest pain x 2 weeks. He went to see his development and planning engineer Dr. Chambers and Dr. Hobson. However patient kept to get worse. He decided to come to the hospital Currently he is on BiPAP he is coughing through the BiPAP he states he has clear phlegm and also he is breathing fast more than 25 breaths/min. He denies chest pain currently. No abdominal pain or vomiting but reports he has diarrhea, he has 1 loose bowel movement yesterday and he had 1 loose and black bowel movement this morning. No urinary complaint he has dizziness but no headache weakness or numbness No history of smoking. However daily drinking of alcohol is reported, marijuana abuse is also recorded He is currently tachypneic, he had low-grade temperature 99.5. On admission he was saturating 91 on room air but currently BiPAP He has mild leukocytosis of 13,000, hemoglobin dropped to 8.3 with baseline about 10-11. Platelet count 144. Creatinine 3.0 with baseline 3-6. proBNP is elevated at 4500. Chest x-ray showing left lower lobe infiltrate suspicious for pneumonia EKG showing sinus rhythm at [address]-T changes. Patient started on ceftriaxone and Zithromax also he is on aspirin 81 mg. Last echocardiogram from 02/19/2024: Showed ejection fraction of 45 to 50% 06/22 Patient states his breathing is slightly better, he still on 5 L oxygen via nasal cannula He is afebrile with no chest pain or abdominal pain He still has black stool and occult blood was positive, hemoglobin dropped to 7.6. Suspicion of GI bleed is high therefore consulting surgery team as there is no GI in this facility during this week He is already on IV Protonix twice daily. We are going to hold his aspirin 81 mg. If his hemoglobin drops less than 7 okay for monitoring of blood transfusion He is on Rocephin and Zithromax. Procalcitonin is elevated. Anemia workup is requested He denies history of alcohol although it was documented in the chart therefore we will discontinue CIWA protocol. Review of systems CONSTITUTIONAL: No fever, no malaise, no fatigue. GASTROINTESTINAL: No diarrhea, no nausea, no vomiting, no abdominal pain. Normoactive bowel sounds. NEUROLOGICAL: No headaches, no weakness, no numbness. HEMATOLOGICAL: Denies any bleeding or petechiae. GENITOURINARY: Denies any burning micturition, frequency, or urgency. MUSCULOSKELETAL/RHEUMATOLOGICAL: Denies any joint pain, swelling, or any muscle pain. ENDOCRINE: Denies any polyuria or polydipsia. Active Medications Generic Name Dose Route Start Last Admin Trade Name Freq PRN Reason Stop Dose Admin Albuterol/Ipratropium 3 ml 06/21/24 08:00 06/22/24 08:21 Ipratropium-Albuterol 3 Ml Neb INHALATION 3 ml RT-QID JUMA Administration Amlodipine Besylate 5 mg 06/21/24 09:00 06/22/24 09:31 Amlodipine 5 Mg Tab PO 5 mg QAM JUMA Administration Budesonide/Formoterol Fumarate 1 puff 06/21/24 08:00 06/22/24 08:21 Symbicort 160-4.5 Mcg Inhaler INHALATION 1 puff RT-BID JUMA Administration Glipizide 2.5 mg 06/21/24 09:00 06/21/24 11:03 Glipizide 5 Mg Tab PO Not Given Q72H JUMA Sodium Chloride 1,000 mls @ 20 mls/hr 06/21/24 01:00 06/22/24 03:35 Saline 0.9% IV Not Given .Q24H JUMA Ceftriaxone Sodium 2 gm/ 50 mls @ 100 mls/hr 06/21/24 22:00 06/21/24 21:37 Sodium Chloride IVPB 06/24/24 22:29 100 mls/hr Q24H JUMA Administration Protocol Meclizine HCl 25 mg 06/21/24 09:00 06/22/24 09:33 Meclizine 25 Mg Tab PO 25 mg BID JUMA Administration Metoprolol Tartrate 25 mg 06/21/24 21:00 06/22/24 09:33 Metoprolol Tartrate 25 Mg Tab PO 25 mg BID JUMA Administration Miscellaneous Information 1 each 06/21/24 01:00 Pneumonia Protocol Utilized 1 Each Misc PO ONCE PRN Per Protocol Miscellaneous Information 1 each 06/21/24 05:28 Potassium Replacement Protocol 1 Each Misc MISCELLANE DAILY PRN Per Protocol Protocol Pantoprazole Sodium 40 mg 06/21/24 09:00 06/22/24 09:22 Pantoprazole 40 Mg/10 Ml Vial IVP 40 mg BID JUMA Administration Pravastatin Sodium 40 mg 06/21/24 21:00 06/21/24 21:37 Pravastatin Sodium 40 Mg Tab PO 40 mg HS JUMA Administration Sodium Bicarbonate 650 mg 06/21/24 21:00 06/22/24 09:34 Sodium Bicarbonate Tab 650 Mg Tab PO 650 mg BID JUMA Administration Tamsulosin HCl 0.4 mg 06/21/24 09:00 06/22/24 09:33 Tamsulosin 0.4 Mg Cap.Er.24h PO 0.4 mg BID JUMA Administration Torsemide 20 mg 06/22/24 09:00 06/22/24 09:33 Torsemide 20 Mg Tab PO 20 mg DAILY JUMA Administration Objective - Vital Signs Vital signs: Vital Signs Temp 98.2 F 06/22/24 08:00 Pulse 86 06/22/24 08:39 Resp 17 06/22/24 08:00 BP 138/103 06/22/24 08:00 Pulse Ox 100 06/22/24 08:24 FiO2 40 06/21/24 13:35 Intake & Output 06/21/24 06/22/24 06/22/24 18:59 06:59 18:59 Intake Total 240 Output Total 400 Balance -400 240 Weight 70.08 kg Intake: Oral 240 Output: Urine 400 Other: # Voids 1 # Bowel Movements 1 - Exam -GENERAL: The patient is alert and oriented x3, not in any acute distress. Well developed, well nourished. Generally weak and lethargic HEENT: Pupils are round and equally reacting to light. EOMI. No scleral icterus. No conjunctival pallor. Normocephalic, atraumatic. No pharyngeal erythema. No thyromegaly. CARDIOVASCULAR: S1 and S2 present. No murmurs, rubs, or gallops. -PULMONARY: Chest is clear to auscultation, no whee bilateral scattered wheezing and crackles. Mildly tachypneic on nasal cannula ABDOMEN: Soft, nontender, nondistended, normoactive bowel sounds. No palpable organomegaly. MUSCULOSKELETAL: No joint swelling or deformity. EXTREMITIES: No cyanosis, clubbing, or pedal edema. NEUROLOGICAL: Gross neurological examination did not reveal any focal deficits. SKIN: No rashes. no petechiae. - Labs CBC & Chem 7: 06/22/24 08:46 06/22/24 08:46 Labs: Abnormal Lab Results - Last 24 Hours (Table) 06/21/24 06/21/24 06/21/24 Range/Units 08:28 16:32 20:49 RBC (4.30-5.90) m/uL Hgb (13.0-17.5) gm/dL Hct (39.0-53.0) % MCHC (31.0-37.0) g/dL Plt Count (150-450) k/uL Lymphocytes # (1.0-4.8) k/uL Potassium (3.5-5.1) mmol/L Chloride (98-107) mmol/L Carbon Dioxide (22-30) mmol/L BUN (9-20) mg/dL Creatinine (0.66-1.25) mg/dL POC Glucose (mg/dL) 158 H 129 H (70-110) mg/dL Iron 8 L (65-175) UG/DL % Saturation 3.08 L (15.00-50.00) Transferrin 186.0 L (204.0-354.0) mg/dL 06/22/24 06/22/24 Range/Units 08:46 08:46 RBC 2.62 L (4.30-5.90) m/uL Hgb 7.6 L (13.0-17.5) gm/dL Hct 25.6 L (39.0-53.0) % MCHC 29.8 L (31.0-37.0) g/dL Plt Count 129 L (150-450) k/uL Lymphocytes # 0.8 L (1.0-4.8) k/uL Potassium 2.9 L (3.5-5.1) mmol/L Chloride 108 H (98-107) mmol/L Carbon Dioxide 20 L (22-30) mmol/L BUN 80 H (9-20) mg/dL Creatinine 3.33 H (0.66-1.25) mg/dL POC Glucose (mg/dL) (70-110) mg/dL Iron (65-175) UG/DL % Saturation (15.00-50.00) Transferrin (204.0-354.0) mg/dL Microbiology - Last 24 Hours (Table) 06/20/24 23:31 Blood Culture Gram Stain - Preliminary Blood Blood Culture - Preliminary Streptococcus pneumoniae Molecular ID Assessment and Plan Assessment: Left lower lobe pneumonia Bilateral pulmonary congestion and edema for acute CHF, which is suspected both systolic and diastolic dysfunction with slightly lowered ejection fraction Acute hypoxic respiratory failure secondary to above, improving Acute GI bleed is suspected with iron deficiency anemia. Normocytic anemia, chronic with recent worsening and black stool. Bacteremia with positive blood culture for staph coccus pneumoniae Chronic kidney disease stage IV secondary to diabetic nephropathy Diabetes mellitus Hypertension Hyperlipidemia History of paroxysmal atrial fibrillation Fibromyalgia History of pneumonia Chronic low back pain and degenerative disc disease of the lumbar spine. Plan: Continue with ceftriaxone and Zithromax Check sputum culture Hold aspirin and monitor hemoglobin. Transfuse 1 unit of blood if hemoglobin less than 7. Also will call surgery team consult Start Protonix. Consult nephrology team and cardiology from emergency room Will ask also pulmonary service to evaluate the patient Labs and medication were reviewed.. Continue same treatment. Continue with symptomatic treatment. Resume home medication. Monitor labs and vitals. DVT and GI prophylaxis. Further recommendations as per clinical course of the patient DVT prophylaxis: no Subcutaneous heparin in view of possible GI bleed. Will continue with mechanical GI Prophylaxis: Protonix PT/OT: Pending Prognosis is guarded
--- NOTE | 2024-06-22 10:14 | P.PN ---
Subjective Patient is seen in follow-up for chronic kidney disease. Renal function fairly stable. Has been voiding. Still complains of chest congestion. Vital signs are stable. General: No acute distress. HEENT: Head exam is unremarkable. LUNGS: No audible rhonchi or wheezes. HEART: Rate and Rhythm are regular. ABDOMEN: Nontender. EXTREMITITES: Trace edema. Objective - Vital Signs Vital signs: Vital Signs Temp 98.2 F 06/22/24 08:00 Pulse 86 06/22/24 08:39 Resp 17 06/22/24 08:00 BP 138/103 06/22/24 08:00 Pulse Ox 100 06/22/24 08:24 FiO2 40 06/21/24 13:35 Intake & Output 06/21/24 06/22/24 06/22/24 18:59 06:59 18:59 Intake Total 240 Output Total 400 Balance -400 240 Weight 70.08 kg Intake: Oral 240 Output: Urine 400 Other: # Voids 1 # Bowel Movements 1 - Labs CBC & Chem 7: 06/22/24 08:46 06/22/24 08:46 Labs: Abnormal Lab Results - Last 24 Hours (Table) 06/21/24 06/21/24 06/21/24 Range/Units 08:28 16:32 20:49 RBC (4.30-5.90) m/uL Hgb (13.0-17.5) gm/dL Hct (39.0-53.0) % MCHC (31.0-37.0) g/dL Plt Count (150-450) k/uL Lymphocytes # (1.0-4.8) k/uL Potassium (3.5-5.1) mmol/L Chloride (98-107) mmol/L Carbon Dioxide (22-30) mmol/L BUN (9-20) mg/dL Creatinine (0.66-1.25) mg/dL POC Glucose (mg/dL) 158 H 129 H (70-110) mg/dL Iron 8 L (65-175) UG/DL % Saturation 3.08 L (15.00-50.00) Transferrin 186.0 L (204.0-354.0) mg/dL 06/22/24 06/22/24 Range/Units 08:46 08:46 RBC 2.62 L (4.30-5.90) m/uL Hgb 7.6 L (13.0-17.5) gm/dL Hct 25.6 L (39.0-53.0) % MCHC 29.8 L (31.0-37.0) g/dL Plt Count 129 L (150-450) k/uL Lymphocytes # 0.8 L (1.0-4.8) k/uL Potassium 2.9 L (3.5-5.1) mmol/L Chloride 108 H (98-107) mmol/L Carbon Dioxide 20 L (22-30) mmol/L BUN 80 H (9-20) mg/dL Creatinine 3.33 H (0.66-1.25) mg/dL POC Glucose (mg/dL) (70-110) mg/dL Iron (65-175) UG/DL % Saturation (15.00-50.00) Transferrin (204.0-354.0) mg/dL Microbiology - Last 24 Hours (Table) 06/20/24 23:31 Blood Culture Gram Stain - Preliminary Blood Blood Culture - Preliminary Streptococcus pneumoniae Molecular ID Assessment and Plan Plan: Assessment: 1. Chronic kidney disease stage IV baseline creatinine 3-3.5 secondary to nephrosclerosis and diabetic kidney disease. Kidney biopsy in the past showed ATN superimposed on chronic injury with acute inflammation suggestive of polynephritis/reflux nephropathy. 2. Hypokalemia from diuresis and poor intake. Magnesium normal. 3. Metabolic acidosis secondary to chronic kidney disease. On oral bicarb. Better. 4. Acute hypoxic respiratory failure. 5. Pneumonia on antibiotics. Blood cultures positive for strep pneumo. 6. Anemia of chronic kidney disease. Iron deficiency noted. 7. Hypertension with chronic kidney disease. Stable. 8. Diabetes mellitus. 9. Lower extremity edema. Better with diuresis. Plan: Encouraged oral intake. Maintain torsemide. Add IV iron. Wean FiO2. Replace potassium. Avoid nephrotoxins. Continue to monitor renal function and urine output.
[2024-06-22] MEDS: POTASSIUM CHLORIDE ER 20 MEQ TAB.ER PO STA ×2 (10:53→21:53)
[2024-06-22] MEDS: DARBEPOETIN ALFA 40 MCG/0.4 ML SYRINGE SQ SCH (11:32)
[2024-06-22 11:33] LABS: Glucose,Whole Blood 121 mg/dL (70-110)
[2024-06-22] MEDS: SODIUM FERRIC GLUCONAT-SUCROSE 125 MG in SODIUM CHLORIDE 0.9% 100 ML IVPB SCH (11:33)
[2024-06-22 12:05] VITALS: BMI 24.9
--- NOTE | 2024-06-22 13:32 | P.PN ---
Subjective Progress Note Date: 06/22/24 Principal diagnosis: Shortness of breath. Pulmonary consultation dated June 21, 2024. 78-year-old male who follows with a family doctor in [place], who recently retired, as well as Dr. Cortés in cardiology, my partner, and Dr. Rodriguez in nephrology. The patient presented to the emergency department, at about 10:00 PM, on June 20. He came in with shortness of breath. He was brought in by EMS. The patient states that he could only walk just a few feet before coming short of breath. It had been going on for a couple of days, and maybe a bit longer. He got progressively worse, so the patient came in to be evaluated. He is seen in the emergency department, room 22. The patient was initially on BiPAP, settings of 12/6, and 40%. When we saw him in the emergency department, he was just getting off the bedside commode, and was not wearing any oxygen whatsoever. The patient has no history of tobacco use, and he does not use home oxygen. I asked him what he sees my partner for, and he says that he is short of breath, primarily from heart disease. He did have an elevated procalcitonin level of 6.60. His BNP was quite high at 84,500. He was placed on azithromycin and Rocephin. Current laboratory data includes a white count 13, hemoglobin 8.3, hematocrit 25.8, and a platelet count of 144,000. Sodium 135, potassium 3, chlorides 103, CO2 17, anion gap 15, BUN 70, creatinine 3.03. Glucose is 199. Troponin was 0.104. ALT was 50. Viral screen was negative. Chest x-ray in my opinion, showed diffuse bilateral infiltrates, with a predominance in the left lower lobe. In addition to azithromycin and Rocephin, the patient was given Symbicort, updrafts with DuoNeb, and Lasix. Progress note dated June 22, 2024. 78-year-old male who was seen in consultation yesterday. We saw him in the emergency department yesterday. Today, we see him in room 371. He is feeling a bit better. He is currently on 5 L nasal cannula. He did use the BiPAP briefly last night, with settings of 12/6, and 40%. He is not receiving any IV fluids at this time. Current laboratory data includes a white count 5.4, hemoglobin 7.6, hematocrit 25.6, and a platelet count of 129,000. Sodium 139, potassium 2.9, chlorides 108, CO2 20, BUN 80, and creatinine 3.33. Glucose is 121. Calcium 8.5. Magnesium 2.2. Blood cultures are apparently positive for Streptococcus pneumoniae. The patient is currently on Rocephin, Symbicort, Lasix, and updrafts. Objective - Vital Signs Vital signs: Vital Signs Temp 98.4 F 06/22/24 12:00 Pulse 92 06/22/24 12:40 Resp 17 06/22/24 12:00 BP 117/64 06/22/24 12:00 Pulse Ox 100 06/22/24 12:00 FiO2 40 06/21/24 13:35 Intake & Output 06/21/24 06/22/24 06/22/24 18:59 06:59 18:59 Intake Total 480 Output Total 400 Balance -400 480 Weight 70.08 kg 70.08 kg Intake: Oral 480 Output: Urine 400 Other: # Voids 1 # Bowel Movements 1 - Exam No acute distress, oriented 3. Is able to speak in full sentences. No audible wheezing. Cough is dry. The patient is currently on 5 L nasal cannula. HEENT examination is grossly unremarkable. Mucous membranes are moist. No oral lesions. Neck supple. Full range of motion. No adenopathy thyromegaly or neck vein distention. Cardiovascular examination reveals regular rhythm rate. S1-S2 normal. No S3 or S4. No discernible murmur noted. Heart sounds are distant. Lungs reveal scattered bilateral rhonchi and crackles. Breath sounds equal. No distinct wheezes noted. Abdomen soft bowel sounds are heard. No masses or tenderness. Extremities are intact. No cyanosis clubbing or edema. Skin is without rash or lesion. Neurologic examination is brief but nonfocal. - Labs CBC & Chem 7: 06/22/24 08:46 06/22/24 08:46 Labs: Abnormal Lab Results - Last 24 Hours (Table) 06/21/24 06/21/24 06/21/24 Range/Units 08:28 16:32 20:49 RBC (4.30-5.90) m/uL Hgb (13.0-17.5) gm/dL Hct (39.0-53.0) % MCHC (31.0-37.0) g/dL Plt Count (150-450) k/uL Lymphocytes # (1.0-4.8) k/uL Potassium (3.5-5.1) mmol/L Chloride (98-107) mmol/L Carbon Dioxide (22-30) mmol/L BUN (9-20) mg/dL Creatinine (0.66-1.25) mg/dL POC Glucose (mg/dL) 158 H 129 H (70-110) mg/dL Iron 8 L (65-175) UG/DL % Saturation 3.08 L (15.00-50.00) Transferrin 186.0 L (204.0-354.0) mg/dL 06/22/24 06/22/24 06/22/24 Range/Units 08:46 08:46 11:31 RBC 2.62 L (4.30-5.90) m/uL Hgb 7.6 L (13.0-17.5) gm/dL Hct 25.6 L (39.0-53.0) % MCHC 29.8 L (31.0-37.0) g/dL Plt Count 129 L (150-450) k/uL Lymphocytes # 0.8 L (1.0-4.8) k/uL Potassium 2.9 L (3.5-5.1) mmol/L Chloride 108 H (98-107) mmol/L Carbon Dioxide 20 L (22-30) mmol/L BUN 80 H (9-20) mg/dL Creatinine 3.33 H (0.66-1.25) mg/dL POC Glucose (mg/dL) 121 H (70-110) mg/dL Iron (65-175) UG/DL % Saturation (15.00-50.00) Transferrin (204.0-354.0) mg/dL Microbiology - Last 24 Hours (Table) 06/20/24 23:31 Blood Culture Gram Stain - Preliminary Blood Blood Culture - Preliminary Streptococcus pneumoniae Molecular ID Assessment and Plan Assessment: Acute hypoxemic respiratory failure, likely multifactorial, in part related to pneumonia, left lower lobe, fluid overload/CHF, and renal failure. Streptococcus pneumoniae bacteremia. History of coronary artery disease, status post CABG. History of chronic atrial fibrillation. History of hypertension. History of diabetes mellitus. History of chronic renal failure, with Wednesday, Wednesday, and Wednesday hemodialysis. History of chronic anxiety. Lifelong non-smoker. History of hyperlipidemia. History of BPH. Plan: Plan dated June 21, 2024. The patient is seen in the emergency department. The patient was initially placed on BiPAP, but when we saw the patient, she was actually on room air. The patient could speak in full sentences. The patient follows with his primary care physician, who recently retired, cardiology, urology, nephrology, and pulmonary medicine. The patient is a lifelong non-smoker, and states he does not have a history of chronic lung disease. He does not use home oxygen. His procalcitonin level was 6.60, and his BNP was 84,500. He was placed on breathing treatments, and antibiotics. We will continue to follow. Prognosis is guarded. Labs, x-rays, and medications are all reviewed. Dictation was produced using [employer] software. Please excuse any grammatical, word or spelling errors. Plan dated June 22, 2024. The patient is seen today in room 371. Yesterday he was seen in the emergency department. He was admitted with a diagnosis of CHF, he was profoundly short of breath. Currently he is on 5 L nasal cannula. He is not receiving any IV fluids. The patient wore the BiPAP last night briefly at 12/6, and 40%. His blood cultures were positive for Streptococcus pneumoniae. He continues on Rocephin. Labs, x-rays, and all medications are reviewed. We will continue to follow the patient and make recommendations where appropriate. Prognosis is guarded. Dictation was produced using [employer] software. Please excuse any grammatical, word or spelling errors. Time with Patient: Less than 30
[2024-06-22] MEDS: POTASSIUM CHLORIDE ER 20 MEQ TAB.ER PO ONE (14:23)
[2024-06-22 16:31] LABS: Glucose,Whole Blood 149 mg/dL (70-110)
--- NOTE | 2024-06-22 16:59 | P.GSCN ---
History of Present Illness Consult date: 06/22/24 History of present illness: CHIEF COMPLAINT: Anemia HISTORY OF PRESENT ILLNESS: The patient is a 78-year-old male with pre-existing history of CABG, end-stage renal disease on dialysis who presented with shortness of breath and congestive heart failure. Patient had hemoglobin on admission of 8.3. Repeat blood draw demonstrated hemoglobin less than 8.0 at 7.6. Per discussion with the patient, reports longstanding history of anemia. Last colonoscopy is over 20 years ago. He is on blood thinners for atrial fibrillation. Denies any gross blood. Patient did have a stool occult which was positive. Denies any epigastric abdominal pain. He does report abdominal distention which started new during his admission. General surgery is consulted for anemia. PAST MEDICAL HISTORY: See list and reviewed PAST SURGICAL HISTORY: See list and reviewed MEDICATIONS: See list and reviewed ALLERGIES: See list and reviewed SOCIAL HISTORY: See list and reviewed FAMILY HISTORY: See list and reviewed REVIEW OF ORGAN SYSTEMS: CONSTITUTIONAL: No fevers or chills. EYES: Denies any trouble with vision. No glasses. HEENT: No difficulties with hearing. No nosebleeds. No difficulty swallowing. RESPIRATORY: On admission shortness of breath. CARDIOVASCULAR: Has coronary artery disease, atrial fibrillation, congestive heart failure. Has hypertensive heart disease. Hyperlipidemia. GASTROINTESTINAL: Denies fatty food intolerance. Denies change in bowel habits and gas bloat. GENITOURINARY: End-stage renal disease, on hemodialysis. Has prostate disorder. NEUROLOGICAL: Denies any numbness or tingling along the distal extremities. No seizure disorders or headaches. MUSCULOSKELETAL: Denies any back pain, stiffness or joint arthritis. SKIN: No current skin cancer. No rash. PSYCHIATRIC: Has anxiety disorder. ENDOCRINE: Denies current thyroid disorders. Denies any blood sugar glucose intolerance. HEME/LYMPHATIC: Denies any lumps and bumps around the neck. No recent deep venous thrombosis. ALLERGY/IMMUNOLOGY: No immunoglobulin therapy. No immune deficiencies. BREAST: Denies current breast lumps, pain or nipple discharge. PHYSICAL EXAM: VITALS: Reviewed CONSTITUTIONAL: Well developed and in no acute distress. EYES: Conjuctivae without sclera icterus. Extraocular movements grossly intact. HEAD, EARS, NOSE, THROAT: Moist buccal mucosa. Head is atraumatic, normocephalic. Hears conversational speech. No nasal drainage. NECK: Supple. No JV distention. No thyroidomegaly. RESPIRATORY: Non-labored respirations and equal bilateral excursions. No gross wheezes. CARDIOVASCULAR: Palpable 2+ radial pulses. ABDOMEN: Mild distention. No diffuse peritonitis. LYMPH: No neck lymphadenopathy. MUSCULOSKELETAL: No clubbing cyanosis or edema SKIN: Warm and well perfused with good skin turgor. NEUROLOGIC: Cranial nerves II through XII grossly intact. No focal or lateralizing signs. PSYCH: Appropriate affect. Alert and oriented to person, place and time. Displays appropriate insight. CLINCAL LABS: Reviewed. Hemoglobin on admission 8.3 down to 7.6. Hemoglobin 2022 was 12.0. IMAGING: Independently reviewed. Chest x-ray independently reviewed demonstrate pulmonary vascular congestion including cardiomegaly with sternal wires. This is my independent or potation. No pneumothorax. RADIOLOGY: Report reviewed. Demonstrates left lower lobe pneumonia RECORDS: previous old records reviewed with review of CT scan 2021 demonstrated no moderate diverticulosis. No identifiable large masses within the colon. This is my independent interpretation. ASSESSMENT: 1. Congestive heart failure 2. Atrial fibrillation 3. Chronic anemia 4. Gastrointestinal bleeding 5. History of CABG 6. End-stage renal disease dialysis dependent PLAN: 1. Patient presents with heart failure including acute hypoxic event. May benefit from upper or lower endoscopy once medically stable 2. At this time, if possible hold blood thinners. 3. Monitor hemoglobin ADVANCE DIRECTIVE: CODE STATUS in chart Thank you for this kind consultation. Dictation was produced using [employer] dictation software. Please excuse any grammatical, word or spelling errors. Past Medical History Past Medical History: Atrial Fibrillation, Coronary Artery Disease (CAD), Diabetes Mellitus, Dialysis, Hypertension, Prostate Disorder, Renal Disease Additional Past Medical History / Comment(s): Dialysis Mon, Wed, Wed History of Any Multi-Drug Resistant Organisms: None Reported Past Surgical History: Cholecystectomy, Coronary Bypass/CABG Additional Past Surgical History / Comment(s): 07 ACL ligament replacement, CABG 3 vessel Past Anesthesia/Blood Transfusion Reactions: No Reported Reaction Past Psychological History: Anxiety Smoking Status: Never smoker - Past Family History Father Family Medical History: Cancer Additional Family Medical History / Comment(s): pancreatic Medications and Allergies Home Medications Medication Instructions Recorded Confirmed Type Aspirin EC [Ecotrin Low Dose] 81 mg PO QAM 02/11/22 06/21/24 History Metoprolol Tartrate [Lopressor] 25 mg PO BID 02/11/22 06/21/24 History Nitroglycerin Sl Tabs [Nitrostat] 0.4 mg SL Q5M PRN 02/11/22 06/21/24 History Pravastatin Sodium [Pravachol] 40 mg PO HS 02/11/22 06/21/24 History Tamsulosin HCl [Flomax] 0.4 mg PO BID 02/11/22 06/21/24 History amLODIPine [Norvasc] 5 mg PO QAM 03/18/22 06/21/24 History Budesonide/Formoterol Fumarate 2 puff INHALATION RT-BID 06/05/22 06/21/24 History [Symbicort 160-4.5 Mcg Inhaler] Torsemide [Demadex] 20 mg PO BID 11/02/22 06/21/24 History glyBURIDE [Diabeta] 2.5 mg PO Q3D 11/02/22 06/21/24 History Apixaban [Eliquis] 2.5 mg PO BID 06/21/24 06/21/24 History Azelastine HCl [Astelin Nasal 1 spray EA NOSTRIL BID 06/21/24 06/21/24 History [place]] Docusate [Colace] 100 mg PO HS 06/21/24 06/21/24 History Losartan [Cozaar] 25 mg PO DAILY 06/21/24 06/21/24 History Mv-Min/Folic/K1/Lycopen/Lutein 1 tab PO DAILY 06/21/24 06/21/24 History [Centrum Silver Men Tablet] Sodium Bicarbonate Tab 650 mg PO HS 06/21/24 06/21/24 History Allergies Allergy/AdvReac Type Severity Reaction Status Date / Time duloxetine [From Cymbalta] Allergy Rash/Hives Verified 06/21/24 08:11 enalaprilat [From Vasotec] Allergy Unknown Verified 06/21/24 08:11 levofloxacin [From Levaquin] Allergy Rash/Hives Verified 06/21/24 08:11 saxagliptin [From Onglyza] Allergy Rash/Hives Verified 06/21/24 08:11 sulfamethoxazole Allergy Rash/Hives Verified 06/21/24 08:11 [From Bactrim] trimethoprim [From Bactrim] Allergy Rash/Hives Verified 06/21/24 08:11 Surgical - Exam Vital Signs Temp Pulse Resp BP Pulse Ox 99.5 F 80 20 123/62 91 L 06/20/24 21:52 06/20/24 21:52 06/20/24 21:52 06/20/24 21:52 06/20/24 21:52 Results - Labs 06/22/24 08:46 06/22/24 08:46 Abnormal Lab Results - Last 24 Hours (Table) 06/21/24 06/22/24 06/22/24 Range/Units 20:49 08:46 08:46 RBC 2.62 L (4.30-5.90) m/uL Hgb 7.6 L (13.0-17.5) gm/dL Hct 25.6 L (39.0-53.0) % MCHC 29.8 L (31.0-37.0) g/dL Plt Count 129 L (150-450) k/uL Lymphocytes # 0.8 L (1.0-4.8) k/uL Potassium 2.9 L (3.5-5.1) mmol/L Chloride 108 H (98-107) mmol/L Carbon Dioxide 20 L (22-30) mmol/L BUN 80 H (9-20) mg/dL Creatinine 3.33 H (0.66-1.25) mg/dL POC Glucose (mg/dL) 129 H (70-110) mg/dL 06/22/24 06/22/24 Range/Units 11:31 16:29 RBC (4.30-5.90) m/uL Hgb (13.0-17.5) gm/dL Hct (39.0-53.0) % MCHC (31.0-37.0) g/dL Plt Count (150-450) k/uL Lymphocytes # (1.0-4.8) k/uL Potassium (3.5-5.1) mmol/L Chloride (98-107) mmol/L Carbon Dioxide (22-30) mmol/L BUN (9-20) mg/dL Creatinine (0.66-1.25) mg/dL POC Glucose (mg/dL) 121 H 149 H (70-110) mg/dL Microbiology - Last 24 Hours (Table) 06/20/24 23:31 Blood Culture Gram Stain - Preliminary Blood Blood Culture - Preliminary Streptococcus pneumoniae Molecular ID Diabetes panel 06/22/24 Range/Units 08:46 Sodium 139 (137-145) mmol/L Potassium 2.9 L (3.5-5.1) mmol/L Chloride 108 H (98-107) mmol/L Carbon Dioxide 20 L (22-30) mmol/L BUN 80 H (9-20) mg/dL Creatinine 3.33 H (0.66-1.25) mg/dL Glucose 93 (74-99) mg/dL Calcium 8.5 (8.4-10.2) mg/dL Calcium panel 06/22/24 Range/Units 08:46 Calcium 8.5 (8.4-10.2) mg/dL Pituitary panel 06/22/24 Range/Units 08:46 Sodium 139 (137-145) mmol/L Potassium 2.9 L (3.5-5.1) mmol/L Chloride 108 H (98-107) mmol/L Carbon Dioxide 20 L (22-30) mmol/L BUN 80 H (9-20) mg/dL Creatinine 3.33 H (0.66-1.25) mg/dL Glucose 93 (74-99) mg/dL Calcium 8.5 (8.4-10.2) mg/dL Adrenal panel 06/22/24 Range/Units 08:46 Sodium 139 (137-145) mmol/L Potassium 2.9 L (3.5-5.1) mmol/L Chloride 108 H (98-107) mmol/L Carbon Dioxide 20 L (22-30) mmol/L BUN 80 H (9-20) mg/dL Creatinine 3.33 H (0.66-1.25) mg/dL Glucose 93 (74-99) mg/dL Calcium 8.5 (8.4-10.2) mg/dL
[2024-06-22 17:43] LABS: HCT 25.1 % (39.0-53.0); HGB 7.6 gm/dL (13.0-17.5); Hypochromasia Marked; MCH 29.8 pg (25.0-35.0); MCHC 30.4 g/dL (31.0-37.0); MCV 98.2 fL (80.0-100.0); Mean Platelet Volume 9.9; Platelet Count 121 k/uL (150-450); RBC 2.56 m/uL (4.30-5.90); RDW 15.4 % (11.5-15.5); WBC 5.9 k/uL (3.8-10.6)
--- NOTE | 2024-06-22 20:21 | P.CONS ---
History of Present Illness - Reason for Consult Consult date: 06/22/24 Bacteremia Requesting physician: Juarez E Sheet - Chief Complaint Shortness of breath and cough x days - History of Present Illness Patient is a 78-year-old male with a past medical history significant for Atrial Fibrillation, Coronary Artery Disease (CAD), Diabetes Mellitus, Dialysis, Hypertension, Prostate Disorder, Renal Disease, presenting to the hospital 2 days ago for evaluation of increasing shortness of breath and weakness that apparently has been getting worse for the last week or so patient denies having any significant chest pain mostly shortness of breath minimal exertion or at rest patient also have a cough moderate intensity with occasional sputum production no hemoptysis patient denies having any nausea vomiting choking on the food abdominal pain or diarrhea on presentation to the hospital the patient was afebrile and no fever have been ordered subsequently patient was tachycardic at 1 point but not hypotensive he was hypoxic currently on 5 L current oxygen patient did have white count of 13,000 elevation with a left shift BUN and creatinine has been elevated liver enzymes ALT mildly elevated influenza RSV COVID testing was negative patient did have a chest x-ray left lower lobe pneumonia blood culture came back positive for Streptococcus pneumoniae prompted this consultation currently being treated with Rocephin 2 g daily Review of Systems Positive point and negatives has been mentioned in the HPI, complete review of systems was performed and all other systems are negative Past Medical History Past Medical History: Atrial Fibrillation, Coronary Artery Disease (CAD), Diabetes Mellitus, Dialysis, Hypertension, Prostate Disorder, Renal Disease Additional Past Medical History / Comment(s): Dialysis Mon, Wed, Fri History of Any Multi-Drug Resistant Organisms: None Reported Past Surgical History: Cholecystectomy, Coronary Bypass/CABG Additional Past Surgical History / Comment(s): 07 ACL ligament replacement, CABG 3 vessel Past Anesthesia/Blood Transfusion Reactions: No Reported Reaction Past Psychological History: Anxiety Smoking Status: Never smoker - Past Family History Father Family Medical History: Cancer Additional Family Medical History / Comment(s): pancreatic Medications and Allergies Home Medications Medication Instructions Recorded Confirmed Type Aspirin EC [Ecotrin Low Dose] 81 mg PO QAM 02/11/22 06/21/24 History Metoprolol Tartrate [Lopressor] 25 mg PO BID 02/11/22 06/21/24 History Nitroglycerin Sl Tabs [Nitrostat] 0.4 mg SL Q5M PRN 02/11/22 06/21/24 History Pravastatin Sodium [Pravachol] 40 mg PO HS 02/11/22 06/21/24 History Tamsulosin HCl [Flomax] 0.4 mg PO BID 02/11/22 06/21/24 History amLODIPine [Norvasc] 5 mg PO QAM 03/18/22 06/21/24 History Budesonide/Formoterol Fumarate 2 puff INHALATION RT-BID 06/05/22 06/21/24 History [Symbicort 160-4.5 Mcg Inhaler] Torsemide [Demadex] 20 mg PO BID 11/02/22 06/21/24 History glyBURIDE [Diabeta] 2.5 mg PO Q3D 11/02/22 06/21/24 History Apixaban [Eliquis] 2.5 mg PO BID 06/21/24 06/21/24 History Azelastine HCl [Astelin Nasal 1 spray EA NOSTRIL BID 06/21/24 06/21/24 History [place]] Docusate [Colace] 100 mg PO HS 06/21/24 06/21/24 History Losartan [Cozaar] 25 mg PO DAILY 06/21/24 06/21/24 History Mv-Min/Folic/K1/Lycopen/Lutein 1 tab PO DAILY 06/21/24 06/21/24 History [Centrum Silver Men Tablet] Sodium Bicarbonate Tab 650 mg PO HS 06/21/24 06/21/24 History Allergies Allergy/AdvReac Type Severity Reaction Status Date / Time duloxetine [From Cymbalta] Allergy Rash/Hives Verified 06/21/24 08:11 enalaprilat [From Vasotec] Allergy Unknown Verified 06/21/24 08:11 levofloxacin [From Levaquin] Allergy Rash/Hives Verified 06/21/24 08:11 saxagliptin [From Onglyza] Allergy Rash/Hives Verified 06/21/24 08:11 sulfamethoxazole Allergy Rash/Hives Verified 06/21/24 08:11 [From Bactrim] trimethoprim [From Bactrim] Allergy Rash/Hives Verified 06/21/24 08:11 Physical Exam Vitals: Vital Signs Temp Pulse Pulse Resp BP Pulse Ox 06/22/24 12:40 92 06/22/24 12:26 90 06/22/24 12:00 98.4 F 93 17 117/64 100 06/22/24 08:39 86 06/22/24 08:24 69 100 06/22/24 08:00 98.2 F 67 17 138/103 99 06/22/24 04:00 80 18 121/63 98 06/22/24 01:20 83 20 06/22/24 00:37 98 06/21/24 23:20 95 18 127/69 98 06/21/24 20:50 84 06/21/24 20:38 85 06/21/24 20:00 97.7 F 83 20 178/73 98 06/21/24 18:08 116 H 17 121/52 98 06/21/24 16:34 83 06/21/24 16:21 105 H 06/21/24 15:05 99 19 127/65 97 06/21/24 14:03 115 H 26 H 06/21/24 14:02 112 H 26 H 100 Intake and Output 06/21/24 06/22/24 06/22/24 22:59 06:59 14:59 Intake Total 480 Output Total 400 Balance -400 480 Intake: Oral 480 Output: Urine 400 Other: # Voids 1 Weight 70.08 kg 70.08 kg GENERAL DESCRIPTION: Elderly male lying in bed, no distress. No tachypnea or accessory muscle of respiration use. HEENT: Shows Pallor , no scleral icterus. Oral mucous membrane is dry. NECK: Trachea central, no thyromegaly. LUNGS: Unlabored breathing. Decreased breath sound at the base HEART: S1, S2, regular rate and rhythm. No loud murmur ABDOMEN: Soft, no tenderness , EXTREMITIES: No edema of feet. SKIN: No rash, no masses palpable. NEUROLOGICAL: The patient is awake, alert, oriented x3, mood and affect normal. Results CBC & Chem 7: 06/22/24 17:19 06/22/24 17:19 Labs: Abnormal Lab Results - Last 24 Hours (Table) 06/21/24 06/21/24 06/21/24 Range/Units 08:28 16:32 20:49 RBC (4.30-5.90) m/uL Hgb (13.0-17.5) gm/dL Hct (39.0-53.0) % MCHC (31.0-37.0) g/dL Plt Count (150-450) k/uL Lymphocytes # (1.0-4.8) k/uL Potassium (3.5-5.1) mmol/L Chloride (98-107) mmol/L Carbon Dioxide (22-30) mmol/L BUN (9-20) mg/dL Creatinine (0.66-1.25) mg/dL POC Glucose (mg/dL) 158 H 129 H (70-110) mg/dL Iron 8 L (65-175) UG/DL % Saturation 3.08 L (15.00-50.00) Transferrin 186.0 L (204.0-354.0) mg/dL 06/22/24 06/22/24 06/22/24 Range/Units 08:46 08:46 11:31 RBC 2.62 L (4.30-5.90) m/uL Hgb 7.6 L (13.0-17.5) gm/dL Hct 25.6 L (39.0-53.0) % MCHC 29.8 L (31.0-37.0) g/dL Plt Count 129 L (150-450) k/uL Lymphocytes # 0.8 L (1.0-4.8) k/uL Potassium 2.9 L (3.5-5.1) mmol/L Chloride 108 H (98-107) mmol/L Carbon Dioxide 20 L (22-30) mmol/L BUN 80 H (9-20) mg/dL Creatinine 3.33 H (0.66-1.25) mg/dL POC Glucose (mg/dL) 121 H (70-110) mg/dL Iron (65-175) UG/DL % Saturation (15.00-50.00) Transferrin (204.0-354.0) mg/dL Microbiology - Last 24 Hours (Table) 06/20/24 23:31 Blood Culture Gram Stain - Preliminary Blood Blood Culture - Preliminary Streptococcus pneumoniae Molecular ID Assessment and Plan (1) Bacteremia Current Visit: Yes Status: Acute Code(s): R78.81 - BACTEREMIA SNOMED Code(s): 8686288 (2) Pneumonia Current Visit: Yes Status: Acute Code(s): J18.9 - PNEUMONIA, UNSPECIFIED ORGANISM SNOMED Code(s): 451686493 (3) Sepsis Current Visit: Yes Status: Acute Code(s): A41.9 - SEPSIS, UNSPECIFIED ORGANISM SNOMED Code(s): 87372434 Plan: 1patient presented to hospital with sepsis in this patient who did have a el evated white count tachycardia meeting currently for SIRS source of the left lower lobe pneumonia likely community-acquired. 2patient with a Streptococcus pneumoniae bacteremia source is left lower lobe pneumonia. 3patient with a renal insufficiency high risk of nephrotoxicity from certain antibiotics. 4patient will be treated with Rocephin 2 g daily while waiting for sensitivity finalize. We will follow on clinical condition and cultures to further adjust medication if needed Thank you for this consultation we will follow the patient along with you Dictation was produced using [employer] dictation software. please excuse any grammatical, word or spelling errors. Time with Patient: Greater than 30
[2024-06-22 20:29] LABS: Glucose,Whole Blood 183 mg/dL (70-110)
[2024-06-23 06:15] LABS: Glucose,Whole Blood 158 mg/dL (70-110)
[2024-06-23 07:33] LABS: Basophils % (A) 0 %; Eosinophils % (A) 0 %; HCT 25.2 % (39.0-53.0); HGB 7.7 gm/dL (13.0-17.5); Hypochromasia Marked; Lymphocytes # (A) 0.5 k/uL (1.0-4.8); Lymphocytes % (A) 11 %; MCH 29.7 pg (25.0-35.0); MCHC 30.4 g/dL (31.0-37.0); MCV 97.7 fL (80.0-100.0); Mean Platelet Volume 9.4; Monocytes # (A) 0.3 k/uL (0-1.0); Monocytes % (A) 7 %; Neutrophils # (A) 4.2 k/uL (1.3-7.7); Neutrophils % (A) 81 %; Platelet Count 130 k/uL (150-450); RBC 2.58 m/uL (4.30-5.90); RDW 15.3 % (11.5-15.5); WBC 5.2 k/uL (3.8-10.6)
[2024-06-23 07:49] LABS: African American GFR (CKD) 21 (>60 ml/min/1.73 sqM); Anion Gap 12 mmol/L; Blood Urea Nitrogen 74 mg/dL (9-20); Calcium 8.4 mg/dL (8.4-10.2); Carbon Dioxide 18 mmol/L (22-30); Chloride 109 mmol/L (98-107); Glucose 141 mg/dL (74-99); Magnesium 2.1 mg/dL (1.6-2.3); Non-African American GFR(CKD) 18 (>60 ml/min/1.73 sqM); Potassium 3.9 mmol/L (3.5-5.1); Sodium 139 mmol/L (137-145)
--- NOTE | 2024-06-23 08:49 | P.PN ---
Subjective Progress Note Date: 06/23/24 The patient is a pleasant 78-year-old gentleman who is known to our service from before with extensive cardiovascular history consistent of history of CAD status post CABG with unknown details at this point as well as cardiomyopathy with EF between 45 to 50% and history of heart failure and advanced chronic kidney disease as well as permanent atrial fibrillation and multiple comorbid conditions. He presented to the hospital with 3 to 4 days history of progressive exertional dyspnea associated with cough with no sputum production and no fever and no chills but congestions and also bilateral lower extremities edema. No change in the weight according to him. No symptoms of chest pain or chest discomfort or dizziness or lightheadedness or any feeling of heart racing or fluttering or presyncope or syncope. He underwent further evaluation including EKG showing atrial fibrillation with diffuse nonspecific ST and T wave abnormalities and also he underwent chest x-ray showed pneumonia. His creat inine is elevated and he is known to have chronic kidney disease. He is not on dialysis. He was seen by the nephrology service and he received 1 dose of IV Lasix and he was placed on oral diuretics. The physical examination is remarkable for irregular rhythm with a very distant heart sounds and heart to hear any cardiac murmurs because of extensive wheezing and extensive crackles bilaterally. Otherwise the physical examination is remarkable for severe bilateral lower extremities pitting edema June 22, 2024 The patient was seen and evaluated this morning. Overall he is feeling better. The shortness of breath is slightly better. No other cardiovascular symptoms including any chest pain. Hemodynamically he is stable with a hemoglobin has came down and for that reason and for the reason that he was tested positive for blood in the stool oral anticoagulation with Eliquis is on hold at this point. He is on oral diuretics. The physical examination is remarkable for bilateral expiratory wheezing and no edema was noted in the lower extremities. June 23, 2024 The patient was seen and evaluated this morning. He did have some nosebleed yesterday. Oral anticoagulation continues to be on hold for ruling out GI bleeding and he is in process of having an EGD. The physical examination is remarkable for irregular rhythm with bilateral expiratory wheezing and mild bilateral lower extremity edema. Currently he is on oral diuretics. Assessment Acute hypoxic respiratory failure Heart failure with HFrEF Permanent atrial fibrillation with controlled heart rate CAD status post CABG Advanced chronic kidney disease Anemia Plan Continue current medical regimen. Continue monitor the kidney function and electrolytes Continue monitor the hemoglobin as well Continue oral diuretics Follow-up with the patient after the EGD Objective - Vital Signs Vital signs: Vital Signs Temp 98.3 F 06/23/24 08:11 Pulse 100 06/23/24 08:46 Resp 26 H 06/23/24 08:11 BP 140/70 06/23/24 08:11 Pulse Ox 95 06/23/24 08:33 FiO2 40 06/21/24 13:35 Intake & Output 06/22/24 06/23/24 06/23/24 18:59 06:59 18:59 Intake Total 720 8 Output Total 700 300 Balance 20 -300 8 Weight 70.08 kg 70.7 kg Intake: IV 8 Invasive Line 1 8 Oral 720 Output: Urine 700 300 Other: # Voids 3 1 # Bowel Movements 1 - Labs CBC & Chem 7: 06/23/24 06:31 06/23/24 06:31 Labs: Abnormal Lab Results - Last 24 Hours (Table) 06/22/24 06/22/24 06/22/24 Range/Units 08:46 08:46 11:31 RBC 2.62 L (4.30-5.90) m/uL Hgb 7.6 L (13.0-17.5) gm/dL Hct 25.6 L (39.0-53.0) % MCHC 29.8 L (31.0-37.0) g/dL Plt Count 129 L (150-450) k/uL Lymphocytes # 0.8 L (1.0-4.8) k/uL Potassium 2.9 L (3.5-5.1) mmol/L Chloride 108 H (98-107) mmol/L Carbon Dioxide 20 L (22-30) mmol/L BUN 80 H (9-20) mg/dL Creatinine 3.33 H (0.66-1.25) mg/dL Glucose (74-99) mg/dL POC Glucose (mg/dL) 121 H (70-110) mg/dL 06/22/24 06/22/24 06/22/24 Range/Units 16:29 17:19 17:19 RBC 2.56 L (4.30-5.90) m/uL Hgb 7.6 L (13.0-17.5) gm/dL Hct 25.1 L (39.0-53.0) % MCHC 30.4 L (31.0-37.0) g/dL Plt Count 121 L (150-450) k/uL Lymphocytes # (1.0-4.8) k/uL Potassium 3.4 L (3.5-5.1) mmol/L Chloride (98-107) mmol/L Carbon Dioxide (22-30) mmol/L BUN (9-20) mg/dL Creatinine (0.66-1.25) mg/dL Glucose (74-99) mg/dL POC Glucose (mg/dL) 149 H (70-110) mg/dL 06/22/24 06/23/24 06/23/24 Range/Units 20:28 06:12 06:31 RBC 2.58 L (4.30-5.90) m/uL Hgb 7.7 L (13.0-17.5) gm/dL Hct 25.2 L (39.0-53.0) % MCHC 30.4 L (31.0-37.0) g/dL Plt Count 130 L (150-450) k/uL Lymphocytes # 0.5 L (1.0-4.8) k/uL Potassium (3.5-5.1) mmol/L Chloride (98-107) mmol/L Carbon Dioxide (22-30) mmol/L BUN (9-20) mg/dL Creatinine (0.66-1.25) mg/dL Glucose (74-99) mg/dL POC Glucose (mg/dL) 183 H 158 H (70-110) mg/dL 06/23/24 Range/Units 06:31 RBC (4.30-5.90) m/uL Hgb (13.0-17.5) gm/dL Hct (39.0-53.0) % MCHC (31.0-37.0) g/dL Plt Count (150-450) k/uL Lymphocytes # (1.0-4.8) k/uL Potassium (3.5-5.1) mmol/L Chloride 109 H (98-107) mmol/L Carbon Dioxide 18 L (22-30) mmol/L BUN 74 H (9-20) mg/dL Creatinine 3.13 H (0.66-1.25) mg/dL Glucose 141 H (74-99) mg/dL POC Glucose (mg/dL) (70-110) mg/dL Microbiology - Last 24 Hours (Table) 06/20/24 23:31 Blood Culture Gram Stain - Preliminary Blood Blood Culture - Preliminary Streptococcus pneumoniae Molecular ID
--- NOTE | 2024-06-23 09:03 | P.PN ---
Subjective This is a pleasant 78 years old male with past medical history of multiple medical problems as below Presents because of fever and dyspnea and cough and chest pain x 2 weeks. 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 Chambers and Dr. Hobson. However patient kept to get worse. He decided to come to the hospital Currently he is on BiPAP he is coughing through the BiPAP he states he has clear phlegm and also he is breathing fast more than 25 breaths/min. He denies chest pain currently. No abdominal pain or vomiting but reports he has diarrhea, he has 1 loose bowel movement yesterday and he had 1 loose and black bowel movement this morning. No urinary complaint he has dizziness but no headache weakness or numbness No history of smoking. However daily drinking of alcohol is reported, marijuana abuse is also recorded He is currently tachypneic, he had low-grade temperature 99.5. On admission he was saturating 91 on room air but currently BiPAP He has mild leukocytosis of 13,000, hemoglobin dropped to 8.3 with baseline about 10-11. Platelet count 144. Creatinine 3.0 with baseline 3-6. proBNP is elevated at 4500. Chest x-ray showing left lower lobe infiltrate suspicious for pneumonia EKG showing sinus rhythm at [address]-T changes. Patient started on ceftriaxone and Zithromax also he is on aspirin 81 mg. Last echocardiogram from 02/19/2024: Showed ejection fraction of 45 to 50% 06/22 Patient states his breathing is slightly better, he still on 5 L oxygen via nasal cannula He is afebrile with no chest pain or abdominal pain He still has black stool and occult blood was positive, hemoglobin dropped to 7.6. Suspicion of GI bleed is high therefore consulting surgery team as there is no GI in this facility during this week He is already on IV Protonix twice daily. We are going to hold his aspirin 81 mg. If his hemoglobin drops less than 7 okay for monitoring of blood transfusion He is on Rocephin and Zithromax. Procalcitonin is elevated. Anemia workup is requested He denies history of alcohol although it was documented in the chart therefore we will discontinue CIWA protocol. 06/23 Patient slightly better breathing today he still tachypneic with breathing rate about 26 but has good oxygen saturation. No chest pain no abdominal pain He has dark brownish stool but not black. Hemoglobin stable today at 7.7. He got IV iron yesterday. aspirin remains on hold, he is on IV Protonix twice daily, Remains on antibiotic ceftriaxone and Zithromax. Blood culture positive for Streptococcus pneumonia Creatinine slightly worse today at 3.3. Review of systems CONSTITUTIONAL: No fever, no malaise, no fatigue. GASTROINTESTINAL: No diarrhea, no nausea, no vomiting, no abdominal pain. Normoactive bowel sounds. NEUROLOGICAL: No headaches, no weakness, no numbness. HEMATOLOGICAL: Denies any bleeding or petechiae. GENITOURINARY: Denies any burning micturition, frequency, or urgency. MUSCULOSKELETAL/RHEUMATOLOGICAL: Denies any joint pain, swelling, or any muscle pain. ENDOCRINE: Denies any polyuria or polydipsia. Active Medications Generic Name Dose Route Start Last Admin Trade Name Freq PRN Reason Stop Dose Admin Albuterol/Ipratropium 3 ml 06/21/24 08:00 06/23/24 08:32 Ipratropium-Albuterol 3 Ml Neb INHALATION 3 ml RT-QID JUMA Administration Amlodipine Besylate 5 mg 06/21/24 09:00 06/22/24 09:31 Amlodipine 5 Mg Tab PO 5 mg QAM JUMA Administration Budesonide/Formoterol Fumarate 1 puff 06/21/24 08:00 06/23/24 08:32 Symbicort 160-4.5 Mcg Inhaler INHALATION 1 puff RT-BID JUMA Administration Darbepoetin Louis 40 mcg 06/22/24 11:00 06/22/24 11:32 Darbepoetin Louis 40 Mcg/0.4 Ml Syringe SQ 40 mcg Q7D JUMA Administration Glipizide 2.5 mg 06/21/24 09:00 06/21/24 11:03 Glipizide 5 Mg Tab PO Not Given Q72H JUMA Sodium Chloride 1,000 mls @ 20 mls/hr 06/21/24 01:00 06/23/24 07:04 Saline 0.9% IV Not Given .Q24H JUMA Ceftriaxone Sodium 2 gm/ 50 mls @ 100 mls/hr 06/21/24 22:00 06/22/24 21:19 Sodium Chloride IVPB 06/24/24 22:29 100 mls/hr Q24H JUMA Administration Protocol Ferric Sodium Gluconate 125 mg 110 mls @ 100 mls/hr 06/22/24 11:00 06/22/24 11:33 / Sodium Chloride IVPB 06/25/24 10:59 100 mls/hr DAILY JUMA Administration Meclizine HCl 25 mg 06/21/24 09:00 06/22/24 21:19 Meclizine 25 Mg Tab PO 25 mg BID JUMA Administration Metoprolol Tartrate 25 mg 06/21/24 21:00 06/22/24 21:20 Metoprolol Tartrate 25 Mg Tab PO 25 mg BID JUMA Administration Miscellaneous Information 1 each 06/21/24 01:00 Pneumonia Protocol Utilized 1 Each Misc PO ONCE PRN Per Protocol Miscellaneous Information 1 each 06/21/24 05:28 Potassium Replacement Protocol 1 Each Misc MISCELLANE DAILY PRN Per Protocol Protocol Pantoprazole Sodium 40 mg 06/21/24 09:00 06/22/24 21:19 Pantoprazole 40 Mg/10 Ml Vial IVP 40 mg BID JUMA Administration Pravastatin Sodium 40 mg 06/21/24 21:00 06/22/24 21:20 Pravastatin Sodium 40 Mg Tab PO 40 mg HS JUMA Administration Sodium Bicarbonate 650 mg 06/21/24 21:00 06/22/24 21:19 Sodium Bicarbonate Tab 650 Mg Tab PO 650 mg BID JUMA Administration Tamsulosin HCl 0.4 mg 06/21/24 09:00 06/22/24 21:20 Tamsulosin 0.4 Mg Cap.Er.24h PO 0.4 mg BID JUMA Administration Torsemide 20 mg 06/22/24 09:00 06/22/24 09:33 Torsemide 20 Mg Tab PO 20 mg DAILY JUMA Administration Objective - Vital Signs Vital signs: Vital Signs Temp 98.3 F 06/23/24 08:11 Pulse 100 06/23/24 08:46 Resp 26 H 06/23/24 08:11 BP 140/70 06/23/24 08:11 Pulse Ox 95 06/23/24 08:33 FiO2 40 06/21/24 13:35 Intake & Output 06/22/24 06/23/24 06/23/24 18:59 06:59 18:59 Intake Total 720 8 Output Total 700 300 Balance 20 -300 8 Weight 70.08 kg 70.7 kg Intake: IV 8 Invasive Line 1 8 Oral 720 Output: Urine 700 300 Other: # Voids 3 1 # Bowel Movements 1 - Exam -GENERAL: The patient is alert and oriented x3, not in any acute distress. Well developed, well nourished. Generally weak and lethargic HEENT: Pupils are round and equally reacting to light. EOMI. No scleral icterus. No conjunctival pallor. Normocephalic, atraumatic. No pharyngeal erythema. No thyromegaly. CARDIOVASCULAR: S1 and S2 present. No murmurs, rubs, or gallops. -PULMONARY: Chest is clear to auscultation, no whee bilateral scattered wheezing and crackles. Mildly tachypneic on nasal cannula ABDOMEN: Soft, nontender, nondistended, normoactive bowel sounds. No palpable organomegaly. MUSCULOSKELETAL: No joint swelling or deformity. EXTREMITIES: No cyanosis, clubbing, or pedal edema. NEUROLOGICAL: Gross neurological examination did not reveal any focal deficits. SKIN: No rashes. no petechiae. - Labs CBC & Chem 7: 06/23/24 06:31 06/23/24 06:31 Labs: Abnormal Lab Results - Last 24 Hours (Table) 06/22/24 06/22/24 06/22/24 Range/Units 08:46 08:46 11:31 RBC 2.62 L (4.30-5.90) m/uL Hgb 7.6 L (13.0-17.5) gm/dL Hct 25.6 L (39.0-53.0) % MCHC 29.8 L (31.0-37.0) g/dL Plt Count 129 L (150-450) k/uL Lymphocytes # 0.8 L (1.0-4.8) k/uL Potassium 2.9 L (3.5-5.1) mmol/L Chloride 108 H (98-107) mmol/L Carbon Dioxide 20 L (22-30) mmol/L BUN 80 H (9-20) mg/dL Creatinine 3.33 H (0.66-1.25) mg/dL Glucose (74-99) mg/dL POC Glucose (mg/dL) 121 H (70-110) mg/dL 06/22/24 06/22/24 06/22/24 Range/Units 16:29 17:19 17:19 RBC 2.56 L (4.30-5.90) m/uL Hgb 7.6 L (13.0-17.5) gm/dL Hct 25.1 L (39.0-53.0) % MCHC 30.4 L (31.0-37.0) g/dL Plt Count 121 L (150-450) k/uL Lymphocytes # (1.0-4.8) k/uL Potassium 3.4 L (3.5-5.1) mmol/L Chloride (98-107) mmol/L Carbon Dioxide (22-30) mmol/L BUN (9-20) mg/dL Creatinine (0.66-1.25) mg/dL Glucose (74-99) mg/dL POC Glucose (mg/dL) 149 H (70-110) mg/dL 06/22/24 06/23/24 06/23/24 Range/Units 20:28 06:12 06:31 RBC 2.58 L (4.30-5.90) m/uL Hgb 7.7 L (13.0-17.5) gm/dL Hct 25.2 L (39.0-53.0) % MCHC 30.4 L (31.0-37.0) g/dL Plt Count 130 L (150-450) k/uL Lymphocytes # 0.5 L (1.0-4.8) k/uL Potassium (3.5-5.1) mmol/L Chloride (98-107) mmol/L Carbon Dioxide (22-30) mmol/L BUN (9-20) mg/dL Creatinine (0.66-1.25) mg/dL Glucose (74-99) mg/dL POC Glucose (mg/dL) 183 H 158 H (70-110) mg/dL 06/23/24 Range/Units 06:31 RBC (4.30-5.90) m/uL Hgb (13.0-17.5) gm/dL Hct (39.0-53.0) % MCHC (31.0-37.0) g/dL Plt Count (150-450) k/uL Lymphocytes # (1.0-4.8) k/uL Potassium (3.5-5.1) mmol/L Chloride 109 H (98-107) mmol/L Carbon Dioxide 18 L (22-30) mmol/L BUN 74 H (9-20) mg/dL Creatinine 3.13 H (0.66-1.25) mg/dL Glucose 141 H (74-99) mg/dL POC Glucose (mg/dL) (70-110) mg/dL Microbiology - Last 24 Hours (Table) 06/20/24 23:31 Blood Culture Gram Stain - Preliminary Blood Blood Culture - Preliminary Streptococcus pneumoniae Molecular ID Assessment and Plan Assessment: Left lower lobe pneumonia Bilateral pulmonary congestion and edema for acute CHF, which is suspected both systolic and diastolic dysfunction with slightly lowered ejection fraction Acute hypoxic respiratory failure secondary to above, improving Acute GI bleed is suspected with iron deficiency anemia. Normocytic anemia, chronic with recent worsening and black stool. Bacteremia with positive blood culture for staph coccus pneumoniae Chronic kidney disease stage IV secondary to diabetic nephropathy Diabetes mellitus Hypertension Hyperlipidemia History of paroxysmal atrial fibrillation Fibromyalgia History of pneumonia Chronic low back pain and degenerative disc disease of the lumbar spine. Plan: Continue with ceftriaxone and Zithromax Check sputum culture Hold aspirin and monitor hemoglobin. Transfuse 1 unit of blood if hemoglobin less than 7. Also will call surgery team consult Start Protonix. Consult nephrology team and cardiology from emergency room Will ask also pulmonary service to evaluate the patient Labs and medication were reviewed.. Continue same treatment. Continue with symptomatic treatment. Resume home medication. Monitor labs and vitals. DVT and GI prophylaxis. Further recommendations as per clinical course of the patient DVT prophylaxis: no Subcutaneous heparin in view of possible GI bleed. Will continue with mechanical GI Prophylaxis: Protonix PT/OT: Pending Prognosis is guarded
--- NOTE | 2024-06-23 10:05 | P.PN ---
Subjective Patient is seen in follow-up for chronic kidney disease. Renal function stable. Has been voiding. Having dark bowel movements. Vital signs are stable. General: No acute distress. HEENT: Head exam is unremarkable. LUNGS: No audible rhonchi or wheezes. HEART: Rate and Rhythm are regular. ABDOMEN: Nontender. EXTREMITITES: Trace edema. Objective - Vital Signs Vital signs: Vital Signs Temp 98.3 F 06/23/24 08:11 Pulse 100 06/23/24 08:46 Resp 26 H 06/23/24 08:11 BP 140/70 06/23/24 08:11 Pulse Ox 95 06/23/24 08:33 FiO2 40 06/21/24 13:35 Intake & Output 06/22/24 06/23/24 06/23/24 18:59 06:59 18:59 Intake Total 720 8 Output Total 700 300 Balance 20 -300 8 Weight 70.08 kg 70.7 kg Intake: IV 8 Invasive Line 1 8 Oral 720 Output: Urine 700 300 Other: # Voids 3 1 # Bowel Movements 1 - Labs CBC & Chem 7: 06/23/24 06:31 06/23/24 06:31 Labs: Abnormal Lab Results - Last 24 Hours (Table) 06/22/24 06/22/24 06/22/24 Range/Units 08:46 11:31 16:29 RBC (4.30-5.90) m/uL Hgb (13.0-17.5) gm/dL Hct (39.0-53.0) % MCHC (31.0-37.0) g/dL Plt Count (150-450) k/uL Lymphocytes # (1.0-4.8) k/uL Potassium 2.9 L (3.5-5.1) mmol/L Chloride 108 H (98-107) mmol/L Carbon Dioxide 20 L (22-30) mmol/L BUN 80 H (9-20) mg/dL Creatinine 3.33 H (0.66-1.25) mg/dL Glucose (74-99) mg/dL POC Glucose (mg/dL) 121 H 149 H (70-110) mg/dL 06/22/24 06/22/24 06/22/24 Range/Units 17:19 17:19 20:28 RBC 2.56 L (4.30-5.90) m/uL Hgb 7.6 L (13.0-17.5) gm/dL Hct 25.1 L (39.0-53.0) % MCHC 30.4 L (31.0-37.0) g/dL Plt Count 121 L (150-450) k/uL Lymphocytes # (1.0-4.8) k/uL Potassium 3.4 L (3.5-5.1) mmol/L Chloride (98-107) mmol/L Carbon Dioxide (22-30) mmol/L BUN (9-20) mg/dL Creatinine (0.66-1.25) mg/dL Glucose (74-99) mg/dL POC Glucose (mg/dL) 183 H (70-110) mg/dL 06/23/24 06/23/24 06/23/24 Range/Units 06:12 06:31 06:31 RBC 2.58 L (4.30-5.90) m/uL Hgb 7.7 L (13.0-17.5) gm/dL Hct 25.2 L (39.0-53.0) % MCHC 30.4 L (31.0-37.0) g/dL Plt Count 130 L (150-450) k/uL Lymphocytes # 0.5 L (1.0-4.8) k/uL Potassium (3.5-5.1) mmol/L Chloride 109 H (98-107) mmol/L Carbon Dioxide 18 L (22-30) mmol/L BUN 74 H (9-20) mg/dL Creatinine 3.13 H (0.66-1.25) mg/dL Glucose 141 H (74-99) mg/dL POC Glucose (mg/dL) 158 H (70-110) mg/dL Microbiology - Last 24 Hours (Table) 06/20/24 23:31 Blood Culture Gram Stain - Preliminary Blood Blood Culture - Preliminary Streptococcus pneumoniae Molecular ID Assessment and Plan Plan: Assessment: 1. Chronic kidney disease stage IV baseline creatinine 3-3.5 secondary to nephrosclerosis and diabetic kidney disease. Kidney biopsy in the past showed ATN superimposed on chronic injury with acute inflammation suggestive of poly nephritis/reflux nephropathy. 2. Hypokalemia from diuresis and poor intake. Magnesium normal. Replaced. Improved. 3. Metabolic acidosis secondary to chronic kidney disease. On oral bicarb. 4. Acute hypoxic respiratory failure. 5. Pneumonia on antibiotics. Blood cultures positive for strep pneumo. 6. Anemia of chronic kidney disease. Iron deficiency noted. Receiving IV iron. Also on Aranesp. Having dark bowel movements. Surgery following. Endoscopy once medically stable. 7. Hypertension with chronic kidney disease. Stable. 8. Diabetes mellitus. 9. Lower extremity edema. Better with diuresis. Plan: Encouraged oral intake. Maintain torsemide. Maintain IV iron. Wean FiO2. Avoid nephrotoxins. Continue to monitor renal function and urine output.
[2024-06-23 11:25] LABS: Glucose,Whole Blood 137 mg/dL (70-110)
--- NOTE | 2024-06-23 11:40 | P.PN ---
Subjective Progress Note Date: 06/23/24 Principal diagnosis: Shortness of breath. Pulmonary consultation dated June 21, 2024. 78-year-old male who follows with a family doctor in [place], who recently retired, as well as Dr. Cortés in cardiology, my partner, and Dr. Rodriguez in nephrology. The patient presented to the emergency department, at about 10:00 PM, on June 20. He came in with shortness of breath. He was brought in by EMS. The patient states that he could only walk just a few feet before coming short of breath. It had been going on for a couple of days, and maybe a bit longer. He got progressively worse, so the patient came in to be evaluated. He is seen in the emergency department, room 22. The patient was initially on BiPAP, settings of 12/6, and 40%. When we saw him in the emergency department, he was just getting off the bedside commode, and was not wearing any oxygen whatsoever. The patient has no history of tobacco use, and he does not use home oxygen. I asked him what he sees my partner for, and he says that he is short of breath, primarily from heart disease. He did have an elevated procalcitonin level of 6.60. His BNP was quite high at 84,500. He was placed on azithromycin and Rocephin. Current laboratory data includes a white count 13, hemoglobin 8.3, hematocrit 25.8, and a platelet count of 144,000. Sodium 135, potassium 3, chlorides 103, CO2 17, anion gap 15, BUN 70, creatinine 3.03. Glucose is 199. Troponin was 0.104. ALT was 50. Viral screen was negative. Chest x-ray in my opinion, showed diffuse bilateral infiltrates, with a predominance in the left lower lobe. In addition to azithromycin and Rocephin, the patient was given Symbicort, updrafts with DuoNeb, and Lasix. Progress note dated June 22, 2024. 78-year-old male who was seen in consultation yesterday. We saw him in the emergency department yesterday. Today, we see him in room 371. He is feeling a bit better. He is currently on 5 L nasal cannula. He did use the BiPAP briefly last night, with settings of 12/6, and 40%. He is not receiving any IV fluids at this time. Current laboratory data includes a white count 5.4, hemoglobin 7.6, hematocrit 25.6, and a platelet count of 129,000. Sodium 139, potassium 2.9, chlorides 108, CO2 20, BUN 80, and creatinine 3.33. Glucose is 121. Calcium 8.5. Magnesium 2.2. Blood cultures are apparently positive for Streptococcus pneumoniae. The patient is currently on Rocephin, Symbicort, Lasix, and updrafts. Progress note dated June 23, 2024. 78-year-old male seen today in room 371. He was seen in consultation 2 days ago . He is resting comfortably in bed. He is awake and alert. He is on 2 L nasal cannula. No IV fluids. He apparently scheduled to have a colonoscopy today. He continues on Rocephin. Blood cultures were positive for Streptococcus pneumoniae. Procalcitonin level was elevated. Current laboratory data includes a white count 5.2, hemoglobin 7.7, hematocrit 25.2, and a platelet count of 130,000. Sodium 139, potassium 3.9, chlorides 109, CO2 18, anion gap 12, BUN 74, creatinine 3.13. Glucose is 137. Calcium 8.4, magnesium 2.1. Objective - Vital Signs Vital signs: Vital Signs Temp 98.3 F 06/23/24 08:11 Pulse 100 06/23/24 08:46 Resp 26 H 06/23/24 08:11 BP 140/70 06/23/24 08:11 Pulse Ox 95 06/23/24 08:33 FiO2 40 06/21/24 13:35 Intake & Output 06/22/24 06/23/24 06/23/24 18:59 06:59 18:59 Intake Total 720 8 Output Total 700 300 Balance 20 -300 8 Weight 70.08 kg 70.7 kg Intake: IV 8 Invasive Line 1 8 Oral 720 Output: Urine 700 300 Other: # Voids 3 1 # Bowel Movements 1 - Exam No acute distress, oriented 3. Is able to speak in full sentences. No audible wheezing. Cough is dry. The patient is currently on 2 L nasal cannula. HEENT examination is grossly unremarkable. Mucous membranes are moist. No oral lesions. Neck supple. Full range of motion. No adenopathy thyromegaly or neck vein distention. Cardiovascular examination reveals regular rhythm rate. S1-S2 normal. No S3 or S4. No discernible murmur noted. Heart sounds are distant. Lungs reveal scattered bilateral rhonchi and crackles. Breath sounds equal. No distinct wheezes noted. Abdomen soft bowel sounds are heard. No masses or tenderness. Extremities are intact. No cyanosis clubbing or edema. Skin is without rash or lesion. Neurologic examination is brief but nonfocal. - Labs CBC & Chem 7: 06/23/24 06:31 06/23/24 06:31 Labs: Abnormal Lab Results - Last 24 Hours (Table) 06/22/24 06/22/24 06/22/24 Range/Units 16:29 17:19 17:19 RBC 2.56 L (4.30-5.90) m/uL Hgb 7.6 L (13.0-17.5) gm/dL Hct 25.1 L (39.0-53.0) % MCHC 30.4 L (31.0-37.0) g/dL Plt Count 121 L (150-450) k/uL Lymphocytes # (1.0-4.8) k/uL Potassium 3.4 L (3.5-5.1) mmol/L Chloride (98-107) mmol/L Carbon Dioxide (22-30) mmol/L BUN (9-20) mg/dL Creatinine (0.66-1.25) mg/dL Glucose (74-99) mg/dL POC Glucose (mg/dL) 149 H (70-110) mg/dL 06/22/24 06/23/24 06/23/24 Range/Units 20:28 06:12 06:31 RBC 2.58 L (4.30-5.90) m/uL Hgb 7.7 L (13.0-17.5) gm/dL Hct 25.2 L (39.0-53.0) % MCHC 30.4 L (31.0-37.0) g/dL Plt Count 130 L (150-450) k/uL Lymphocytes # 0.5 L (1.0-4.8) k/uL Potassium (3.5-5.1) mmol/L Chloride (98-107) mmol/L Carbon Dioxide (22-30) mmol/L BUN (9-20) mg/dL Creatinine (0.66-1.25) mg/dL Glucose (74-99) mg/dL POC Glucose (mg/dL) 183 H 158 H (70-110) mg/dL 06/23/24 06/23/24 Range/Units 06:31 11:23 RBC (4.30-5.90) m/uL Hgb (13.0-17.5) gm/dL Hct (39.0-53.0) % MCHC (31.0-37.0) g/dL Plt Count (150-450) k/uL Lymphocytes # (1.0-4.8) k/uL Potassium (3.5-5.1) mmol/L Chloride 109 H (98-107) mmol/L Carbon Dioxide 18 L (22-30) mmol/L BUN 74 H (9-20) mg/dL Creatinine 3.13 H (0.66-1.25) mg/dL Glucose 141 H (74-99) mg/dL POC Glucose (mg/dL) 137 H (70-110) mg/dL Microbiology - Last 24 Hours (Table) 06/20/24 23:31 Blood Culture Gram Stain - Preliminary Blood Blood Culture - Preliminary Streptococcus pneumoniae Molecular ID Assessment and Plan Assessment: Acute hypoxemic respiratory failure, likely multifactorial, in part related to pneumonia, left lower lobe, fluid overload/CHF, and renal failure. Streptococcus pneumoniae bacteremia. History of coronary artery disease, status post CABG. History of chronic atrial fibrillation. History of hypertension. History of diabetes mellitus. History of chronic renal failure, with Wednesday, Wednesday, and Wednesday hemodialysis. History of chronic anxiety. Lifelong non-smoker. History of hyperlipidemia. History of BPH. Plan: Plan dated June 21, 2024. The patient is seen in the emergency department. The patient was initially placed on BiPAP, but when we saw the patient, she was actually on room air. The patient could speak in full sentences. The patient follows with his primary care physician, who recently retired, cardiology, urology, nephrology, and pulmonary medicine. The patient is a lifelong non-smoker, and states he does not have a history of chronic lung disease. He does not use home oxygen. His procalcitonin level was 6.60, and his BNP was 84,500. He was placed on breathing treatments, and antibiotics. We will continue to follow. Prognosis is guarded. Labs, x-rays, and medications are all reviewed. Dictation was produced using [employer] software. Please excuse any grammatical, word or spelling errors. Plan dated June 22, 2024. The patient is seen today in room 371. Yesterday he was seen in the emergency department. He was admitted with a diagnosis of CHF, he was profoundly short of breath. Currently he is on 5 L nasal cannula. He is not receiving any IV fluids. The patient wore the BiPAP last night briefly at 12/6, and 40%. His blood cultures were positive for Streptococcus pneumoniae. He continues on Rocephin. Labs, x-rays, and all medications are reviewed. We will continue to follow the patient and make recommendations where appropriate. Prognosis is guarded. Dictation was produced using [employer] software. Please excuse any grammatical, word or spelling errors. Plan dated June 23, 2024. The patient is seen today in room 371. The patient is resting comfortably in b ed. He is laying flat in bed. He is on 2 L of oxygen. No IV fluids. He apparently is scheduled for colonoscopy today. He continues on Rocephin for Streptococcus pneumonia bacteremia. His procalcitonin level was elevated. Labs, x-rays, and all medications are reviewed. Overall, he is doing better. His respiratory status is improved. He states that his breathing is better, and he is less short of breath. We will continue to follow. Prognosis is guarded. Dictation was produced using [employer] software. Please excuse any grammatical, word or spelling errors. Time with Patient: Less than 30
--- NOTE | 2024-06-23 14:00 | P.PN ---
Subjective Progress Note Date: 06/23/24 CHIEF COMPLAINT: Anemia HISTORY OF PRESENT ILLNESS: The patient is a 78-year-old male with pre-existing history of CABG, end-stage renal disease on dialysis who presented with shortness of breath and congestive heart failure. Patient had hemoglobin on admission of 8.3. Today hemoglobin is stable from 7.6 yesterday to 7.7 today. He does recollect her believe he has a duodenal ulcer due to reflux disease and epigastric abdominal pain. He denies any blood in stools however. Separately he does report that his has similar symptoms of congestive heart failure and he is concerned as she is on her way to the hospital to be patient. REVIEW OF ORGAN SYSTEMS: No fevers or chills. No acute chest pain. Has shortness of breath improving. PHYSICAL EXAM: VITALS: Reviewed CONSTITUTIONAL: Well developed and in no acute distress. EYES: Conjuctivae without sclera icterus. Extraocular movements grossly intact. HEAD, EARS, NOSE, THROAT: Moist buccal mucosa. Head is atraumatic, normocephalic. Hears conversational speech. No nasal drainage. RESPIRATORY: Nonlabored respirations. CARDIOVASCULAR: Palpable 2+ radial pulses. ABDOMEN: Mild distention. Nontender. MUSCULOSKELETAL: No clubbing cyanosis or edema SKIN: Warm and well perfused with good skin turgor. NEUROLOGIC: Cranial nerves II through XII grossly intact. No focal or lateralizing signs. PSYCH: Appropriate affect. Alert and oriented to person, place and time. Displays appropriate insight. CLINCAL LABS: Reviewed. Hemoglobin on admission 8.3 down to 7.6 today, up to 7.7. ASSESSMENT: 1. Congestive heart failure 2. Atrial fibrillation 3. Chronic anemia 4. Gastrointestinal bleeding 5. History of CABG 6. End-stage renal disease PLAN: 1. I had extensive discussion due to his worsening anemia in the past several years from 12.0-8.3 now 7.7. Last colonoscopy was over 20+ years ago with risk of malignancy. 2. Additionally, patient does report occasional epigastric abdominal pain and concerns for duodenal ulcers. As result, we will proceed with both upper and lower endoscopy once medically stable. 3. As patient is still being optimized from a cardiopulmonary and nephrology standpoint, anticipated upper and lower endoscopy for 06/26/2024. 4. Modified bowel prep to start on Abdelrahman adjusted 4 liter prep to 2 L prep to minimize volume overload. Milk of magnesia including lactulose to start t omorr and Wednesday. Objective - Vital Signs Vital signs: Vital Signs Temp 97.8 F 06/23/24 11:58 Pulse 97 06/23/24 11:58 Resp 24 06/23/24 11:58 BP 122/59 06/23/24 11:58 Pulse Ox 96 06/23/24 11:58 FiO2 40 06/21/24 13:35 Intake & Output 06/22/24 06/23/24 06/23/24 18:59 06:59 18:59 Intake Total 720 8 Output Total 700 300 Balance 20 -300 8 Weight 70.08 kg 70.7 kg Intake: IV 8 Invasive Line 1 8 Oral 720 Output: Urine 700 300 Other: # Voids 3 1 # Bowel Movements 1 - Labs CBC & Chem 7: 06/23/24 06:31 06/23/24 06:31 Labs: Abnormal Lab Results - Last 24 Hours (Table) 06/22/24 06/22/24 06/22/24 Range/Units 16:29 17:19 17:19 RBC 2.56 L (4.30-5.90) m/uL Hgb 7.6 L (13.0-17.5) gm/dL Hct 25.1 L (39.0-53.0) % MCHC 30.4 L (31.0-37.0) g/dL Plt Count 121 L (150-450) k/uL Lymphocytes # (1.0-4.8) k/uL Potassium 3.4 L (3.5-5.1) mmol/L Chloride (98-107) mmol/L Carbon Dioxide (22-30) mmol/L BUN (9-20) mg/dL Creatinine (0.66-1.25) mg/dL Glucose (74-99) mg/dL POC Glucose (mg/dL) 149 H (70-110) mg/dL 06/22/24 06/23/24 06/23/24 Range/Units 20:28 06:12 06:31 RBC 2.58 L (4.30-5.90) m/uL Hgb 7.7 L (13.0-17.5) gm/dL Hct 25.2 L (39.0-53.0) % MCHC 30.4 L (31.0-37.0) g/dL Plt Count 130 L (150-450) k/uL Lymphocytes # 0.5 L (1.0-4.8) k/uL Potassium (3.5-5.1) mmol/L Chloride (98-107) mmol/L Carbon Dioxide (22-30) mmol/L BUN (9-20) mg/dL Creatinine (0.66-1.25) mg/dL Glucose (74-99) mg/dL POC Glucose (mg/dL) 183 H 158 H (70-110) mg/dL 06/23/24 06/23/24 Range/Units 06:31 11:23 RBC (4.30-5.90) m/uL Hgb (13.0-17.5) gm/dL Hct (39.0-53.0) % MCHC (31.0-37.0) g/dL Plt Count (150-450) k/uL Lymphocytes # (1.0-4.8) k/uL Potassium (3.5-5.1) mmol/L Chloride 109 H (98-107) mmol/L Carbon Dioxide 18 L (22-30) mmol/L BUN 74 H (9-20) mg/dL Creatinine 3.13 H (0.66-1.25) mg/dL Glucose 141 H (74-99) mg/dL POC Glucose (mg/dL) 137 H (70-110) mg/dL Microbiology - Last 24 Hours (Table) 06/20/24 23:31 Blood Culture Gram Stain - Final Blood Blood Culture - Final Streptococcus pneumoniae Molecular ID
--- NOTE | 2024-06-23 14:53 | P.PN ---
Subjective Progress Note Date: 06/23/24 Principal diagnosis: Reason for follow up with Streptococcus pneumoniae bacteremia and pneumonia Patient is a 78-year-old male with a past medical history significant for Atrial Fibrillation, Coronary Artery Disease (CAD), Diabetes Mellitus, Dialysis, Hypertension, Prostate Disorder, Renal Disease, presenting to the hospital for evaluation of increasing shortness of breath and weakness, patient presenting with left lower lobe pneumonia positive blood culture with strep pneumo prompting this consultation. On today's evaluation that is 06/23/2024, the patient continues to be afebrile, the patient is on 2 L nasal cannula oxygen and breathing slightly comfortably, the Pt denies having any chest pain continue to have cough but not bringing up any sputum, no nausea vomiting or diarrhea seem to be concerned about his having. Patient white count is 5.2, creatinine 3.13 blood culture with strep pneumo that is sensitive to ceftriaxone Objective - Vital Signs Vital signs: Vital Signs Temp 97.8 F 06/23/24 11:58 Pulse 97 06/23/24 11:58 Resp 24 06/23/24 11:58 BP 122/59 06/23/24 11:58 Pulse Ox 96 06/23/24 11:58 FiO2 40 06/21/24 13:35 Intake & Output 06/22/24 06/23/24 06/23/24 18:59 06:59 18:59 Intake Total 720 8 Output Total 700 300 Balance 20 -300 8 Weight 70.08 kg 70.7 kg Intake: IV 8 Invasive Line 1 8 Oral 720 Output: Urine 700 300 Other: # Voids 3 1 # Bowel Movements 1 - Exam GENERAL DESCRIPTION: An elderly male lying in bed in no distress RESPIRATORY SYSTEM: Unlabored breathing , decreased breath sounds at bases HEART: S1 S2 regular rate and rhythm , ABDOMEN: Soft , no tenderness EXTREMITIES: No edema feet - Labs CBC & Chem 7: 06/23/24 06:31 06/23/24 06:31 Labs: Abnormal Lab Results - Last 24 Hours (Table) 06/22/24 06/22/24 06/22/24 Range/Units 16:29 17:19 17:19 RBC 2.56 L (4.30-5.90) m/uL Hgb 7.6 L (13.0-17.5) gm/dL Hct 25.1 L (39.0-53.0) % MCHC 30.4 L (31.0-37.0) g/dL Plt Count 121 L (150-450) k/uL Lymphocytes # (1.0-4.8) k/uL Potassium 3.4 L (3.5-5.1) mmol/L Chloride (98-107) mmol/L Carbon Dioxide (22-30) mmol/L BUN (9-20) mg/dL Creatinine (0.66-1.25) mg/dL Glucose (74-99) mg/dL POC Glucose (mg/dL) 149 H (70-110) mg/dL 06/22/24 06/23/24 06/23/24 Range/Units 20:28 06:12 06:31 RBC 2.58 L (4.30-5.90) m/uL Hgb 7.7 L (13.0-17.5) gm/dL Hct 25.2 L (39.0-53.0) % MCHC 30.4 L (31.0-37.0) g/dL Plt Count 130 L (150-450) k/uL Lymphocytes # 0.5 L (1.0-4.8) k/uL Potassium (3.5-5.1) mmol/L Chloride (98-107) mmol/L Carbon Dioxide (22-30) mmol/L BUN (9-20) mg/dL Creatinine (0.66-1.25) mg/dL Glucose (74-99) mg/dL POC Glucose (mg/dL) 183 H 158 H (70-110) mg/dL 06/23/24 06/23/24 Range/Units 06:31 11:23 RBC (4.30-5.90) m/uL Hgb (13.0-17.5) gm/dL Hct (39.0-53.0) % MCHC (31.0-37.0) g/dL Plt Count (150-450) k/uL Lymphocytes # (1.0-4.8) k/uL Potassium (3.5-5.1) mmol/L Chloride 109 H (98-107) mmol/L Carbon Dioxide 18 L (22-30) mmol/L BUN 74 H (9-20) mg/dL Creatinine 3.13 H (0.66-1.25) mg/dL Glucose 141 H (74-99) mg/dL POC Glucose (mg/dL) 137 H (70-110) mg/dL Microbiology - Last 24 Hours (Table) 06/20/24 23:31 Blood Culture Gram Stain - Preliminary Blood Blood Culture - Preliminary Streptococcus pneumoniae Molecular ID Assessment and Plan (1) Bacteremia Current Visit: Yes Status: Acute Code(s): R78.81 - BACTEREMIA SNOMED Code(s): 4305670 (2) Pneumonia Current Visit: Yes Status: Acute Code(s): J18.9 - PNEUMONIA, UNSPECIFIED ORGANISM SNOMED Code(s): 421620914 (3) Sepsis Current Visit: Yes Status: Acute Code(s): A41.9 - SEPSIS, UNSPECIFIED ORGANISM SNOMED Code(s): 79441259 Plan: 1patient presented to hospital with sepsis in this patient who did have a elevated white count tachycardia meeting currently for SIRS source of the left lower lobe pneumonia likely community-acquired. 2patient with a Streptococcus pneumoniae bacteremia source is left lower lobe pneumonia. 3patient with a renal insufficiency high risk of nephrotoxicity from certain antibiotics. 4patient blood culture have been finalized with strep pneumo that is sensitive to ceftriaxone to continue while inpatient and monitor clinical course closely Dictation was produced using [employer] dictation software. please excuse any grammatical, word or spelling errors. Time with Patient: Less than 30
[2024-06-23 16:26] LABS: Glucose,Whole Blood 209 mg/dL (70-110)
[2024-06-23 20:11] LABS: Glucose,Whole Blood 252 mg/dL (70-110)
[2024-06-24 06:22] LABS: Glucose,Whole Blood 185 mg/dL (70-110)
--- NOTE | 2024-06-24 07:41 | P.PN ---
Subjective Progress Note Date: 06/24/24 The patient is a pleasant 78-year-old gentleman who is known to our service from before with extensive cardiovascular history consistent of history of CAD status post CABG with unknown details at this point as well as cardiomyopathy with EF between 45 to 50% and history of heart failure and advanced chronic kidney disease as well as permanent atrial fibrillation and multiple comorbid conditions. He presented to the hospital with 3 to 4 days history of progressive exertional dyspnea associated with cough with no sputum production and no fever and no chills but congestions and also bilateral lower extremities edema. No change in the weight according to him. No symptoms of chest pain or chest discomfort or dizziness or lightheadedness or any feeling of heart racing or fluttering or presyncope or syncope. He underwent further evaluation including EKG showing atrial fibrillation with diffuse nonspecific ST and T wave abnormalities and also he underwent chest x-ray showed pneumonia. His creat inine is elevated and he is known to have chronic kidney disease. He is not on dialysis. He was seen by the nephrology service and he received 1 dose of IV Lasix and he was placed on oral diuretics. The physical examination is remarkable for irregular rhythm with a very distant heart sounds and heart to hear any cardiac murmurs because of extensive wheezing and extensive crackles bilaterally. Otherwise the physical examination is remarkable for severe bilateral lower extremities pitting edema June 22, 2024 The patient was seen and evaluated this morning. Overall he is feeling better. The shortness of breath is slightly better. No other cardiovascular symptoms including any chest pain. Hemodynamically he is stable with a hemoglobin has came down and for that reason and for the reason that he was tested positive for blood in the stool oral anticoagulation with Eliquis is on hold at this point. He is on oral diuretics. The physical examination is remarkable for bilateral expiratory wheezing and no edema was noted in the lower extremities. June 23, 2024 The patient was seen and evaluated this morning. He did have some nosebleed yesterday. Oral anticoagulation continues to be on hold for ruling out GI bleeding and he is in process of having an EGD. The physical examination is remarkable for irregular rhythm with bilateral expiratory wheezing and mild bilateral lower extremity edema. Currently he is on oral diuretics. June 24, 2024 The patient was seen and evaluated this morning. He stated that the shortness of breath is slightly better and no symptoms of chest pain. Hemodynamically he is stable with he is going to undergo an EGD this coming Wednesday. Oral anticoagulation is on hold. He is on oral diuretics as well. The physical examination is remarkable for irregular rhythm with improvement in the wheezing since yesterday and mild bilateral lower extremities edema. Assessment Acute hypoxic respiratory failure Heart failure with HFrEF Permanent atrial fibrillation with controlled heart rate CAD status post CABG Advanced chronic kidney disease Anemia Plan Continue current medical regimen. Continue monitor the kidney function and electrolytes Continue monitor the hemoglobin as well Continue oral diuretics Follow-up with the patient after the EGD Objective - Vital Signs Vital signs: Vital Signs Temp 98 F 06/23/24 20:30 Pulse 101 H 06/24/24 05:30 Resp 20 06/24/24 05:30 BP 119/75 06/24/24 05:30 Pulse Ox 95 06/24/24 05:30 FiO2 40 06/21/24 13:35 Intake & Output 06/23/24 06/24/24 06/24/24 18:59 06:59 18:59 Intake Total 823 10 Balance 823 10 Weight 70.4 kg Intake: IV 13 10 Invasive Line 1 13 10 Intake, IV Titration 150 Amount Sodium Ferric Gluconat- 100 Sucrose 125 mg In Sodium Chloride 0.9% 100 ml @ 100 mls/hr IVPB DAILY JU[facility] Rx#:[id number] cefTRIAXone 2 gm In 50 Sodium Chloride 0.9% 50 ml @ 100 mls/hr IVPB Q24H JUMA Rx#:[id number] Oral 660 Other: # Voids 1 2 - Labs CBC & Chem 7: 06/23/24 06:31 06/23/24 06:31 Labs: Abnormal Lab Results - Last 24 Hours (Table) 06/23/24 06/23/24 06/23/24 Range/Units 06:31 11:23 16:24 Chloride 109 H (98-107) mmol/L Carbon Dioxide 18 L (22-30) mmol/L BUN 74 H (9-20) mg/dL Creatinine 3.13 H (0.66-1.25) mg/dL Glucose 141 H (74-99) mg/dL POC Glucose (mg/dL) 137 H 209 H (70-110) mg/dL 06/23/24 06/24/24 Range/Units 20:10 06:21 Chloride (98-107) mmol/L Carbon Dioxide (22-30) mmol/L BUN (9-20) mg/dL Creatinine (0.66-1.25) mg/dL Glucose (74-99) mg/dL POC Glucose (mg/dL) 252 H 185 H (70-110) mg/dL Microbiology - Last 24 Hours (Table) 06/20/24 23:31 Blood Culture Gram Stain - Final Blood Blood Culture - Final Streptococcus pneumoniae Molecular ID
[2024-06-24 08:20] LABS: African American GFR (CKD) 22 (>60 ml/min/1.73 sqM); Anion Gap 12 mmol/L; Blood Urea Nitrogen 64 mg/dL (9-20); Calcium 8.7 mg/dL (8.4-10.2); Carbon Dioxide 19 mmol/L (22-30); Chloride 107 mmol/L (98-107); Glucose 168 mg/dL (74-99); Magnesium 2.1 mg/dL (1.6-2.3); Non-African American GFR(CKD) 19 (>60 ml/min/1.73 sqM); Sodium 138 mmol/L (137-145)
--- NOTE | 2024-06-24 09:55 | P.PN ---
Subjective This is a pleasant 78 years old male with past medical history of multiple medical problems as below Presents because of fever and dyspnea and cough and chest pain x 2 weeks. He went to see his rn ed Dr. Chambers and Dr. Hobson. However patient kept to get worse. He decided to come to the hospital Currently he is on BiPAP he is coughing through the BiPAP he states he has clear phlegm and also he is breathing fast more than 25 breaths/min. He denies chest pain currently. No abdominal pain or vomiting but reports he has diarrhea, he has 1 loose bowel movement yesterday and he had 1 loose and black bowel movement this morning. No urinary complaint he has dizziness but no headache weakness or numbness No history of smoking. However daily drinking of alcohol is reported, marijuana abuse is also recorded He is currently tachypneic, he had low-grade temperature 99.5. On admission he was saturating 91 on room air but currently BiPAP He has mild leukocytosis of 13,000, hemoglobin dropped to 8.3 with baseline about 10-11. Platelet count 144. Creatinine 3.0 with baseline 3-6. proBNP is elevated at 4500. Chest x-ray showing left lower lobe infiltrate suspicious for pneumonia EKG showing sinus rhythm at [address]-T changes. Patient started on ceftriaxone and Zithromax also he is on aspirin 81 mg. Last echocardiogram from 02/19/2024: Showed ejection fraction of 45 to 50% 06/22 Patient states his breathing is slightly better, he still on 5 L oxygen via nasal cannula He is afebrile with no chest pain or abdominal pain He still has black stool and occult blood was positive, hemoglobin dropped to 7.6. Suspicion of GI bleed is high therefore consulting surgery team as there is no GI in this facility during this week He is already on IV Protonix twice daily. We are going to hold his aspirin 81 mg. If his hemoglobin drops less than 7 okay for monitoring of blood transfusion He is on Rocephin and Zithromax. Procalcitonin is elevated. Anemia workup is requested He denies history of alcohol although it was documented in the chart therefore we will discontinue CIWA protocol. 06/23 Patient slightly better breathing today he still tachypneic with breathing rate about 26 but has good oxygen saturation. No chest pain no abdominal pain He has dark brownish stool but not black. Hemoglobin stable today at 7.7. He got IV iron yesterday. aspirin remains on hold, he is on IV Protonix twice daily, Remains on antibiotic ceftriaxone and Zithromax. Blood culture positive for Streptococcus pneumonia Creatinine slightly worse today at 3.3. 06/24 Patient still feels very weak overall he is better than he came in, he is sitting at the side of the chair She he still quite tachypneic and short of breath he still has coarse crepitation with inspiration His creatinine slightly coming down to 0.9 Hemoglobin 7.7 with no more episodes of bloody stool. Aspirin remains on hold for now he is still getting IV Protonix He still on ceftriaxone with positive blood culture Review of systems NEUROLOGICAL: No headaches, no weakness, no numbness. HEMATOLOGICAL: Denies any bleeding or petechiae. GENITOURINARY: Denies any burning micturition, frequency, or urgency. MUSCULOSKELETAL/RHEUMATOLOGICAL: Denies any joint pain, swelling, or any muscle pain. ENDOCRINE: Denies any polyuria or polydipsia. Active Medications Generic Name Dose Route Start Last Admin Trade Name Stevenq PRN Reason Stop Dose Admin Albuterol/Ipratropium 3 ml 06/21/24 08:00 06/24/24 08:14 Ipratropium-Albuterol 3 Ml Neb INHALATION 3 ml RT-QID JUMA Administration Amlodipine Besylate 5 mg 06/21/24 09:00 06/24/24 09:39 Amlodipine 5 Mg Tab PO 5 mg QAM JUMA Administration Budesonide/Formoterol Fumarate 1 puff 06/21/24 08:00 06/24/24 08:14 Symbicort 160-4.5 Mcg Inhaler INHALATION 1 puff RT-BID JUMA Administration Darbepoetin Louis 40 mcg 06/22/24 11:00 06/22/24 11:32 Darbepoetin Louis 40 Mcg/0.4 Ml Syringe SQ 40 mcg Q7D JUMA Administration Glipizide 2.5 mg 06/21/24 09:00 06/24/24 09:38 Glipizide 5 Mg Tab PO 2.5 mg Q72H JUMA Administration Sodium Chloride 1,000 mls @ 20 mls/hr 06/21/24 01:00 06/24/24 06:02 Saline 0.9% IV Not Given .Q24H JUMA Ceftriaxone Sodium 2 gm/ 50 mls @ 100 mls/hr 06/21/24 22:00 06/23/24 20:30 Sodium Chloride IVPB 06/24/24 22:29 100 mls/hr Q24H JUMA Administration Protocol Ferric Sodium Gluconate 125 mg 110 mls @ 100 mls/hr 06/22/24 11:00 06/24/24 09:41 / Sodium Chloride IVPB 06/25/24 10:59 100 mls/hr DAILY JUMA Administration Meclizine HCl 25 mg 06/21/24 09:00 06/24/24 09:39 Meclizine 25 Mg Tab PO 25 mg BID JUMA Administration Metoprolol Tartrate 25 mg 06/21/24 21:00 06/24/24 09:38 Metoprolol Tartrate 25 Mg Tab PO 25 mg BID JUMA Administration Miscellaneous Information 1 each 06/21/24 01:00 Pneumonia Protocol Utilized 1 Each Misc PO ONCE PRN Per Protocol Miscellaneous Information 1 each 06/21/24 05:28 Potassium Replacement Protocol 1 Each Misc MISCELLANE DAILY PRN Per Protocol Protocol Pantoprazole Sodium 40 mg 06/21/24 09:00 06/24/24 09:38 Pantoprazole 40 Mg/10 Ml Vial IVP 40 mg BID JUMA Administration Pravastatin Sodium 40 mg 06/21/24 21:00 06/23/24 20:30 Pravastatin Sodium 40 Mg Tab PO 40 mg HS JUMA Administration Sodium Bicarbonate 650 mg 06/21/24 21:00 06/24/24 09:38 Sodium Bicarbonate Tab 650 Mg Tab PO 650 mg BID JUMA Administration Tamsulosin HCl 0.4 mg 06/21/24 09:00 06/24/24 09:38 Tamsulosin 0.4 Mg Cap.Er.24h PO 0.4 mg BID JUMA Administration Torsemide 20 mg 06/22/24 09:00 06/24/24 09:38 Torsemide 20 Mg Tab PO 20 mg DAILY JUMA Administration Objective - Vital Signs Vital signs: Vital Signs Temp 98 F 06/23/24 20:30 Pulse 88 06/24/24 08:27 Resp 20 06/24/24 05:30 BP 119/75 06/24/24 05:30 Pulse Ox 95 06/24/24 05:30 FiO2 40 06/21/24 13:35 Intake & Output 06/23/24 06/24/24 06/24/24 18:59 06:59 18:59 Intake Total 823 10 Balance 823 10 Weight 70.4 kg Intake: IV 13 10 Invasive Line 1 13 10 Intake, IV Titration 150 Amount Sodium Ferric Gluconat- 100 Sucrose 125 mg In Sodium Chloride 0.9% 100 ml @ 100 mls/hr IVPB DAILY JUMA Rx#:[id number] cefTRIAXone 2 gm In 50 Sodium Chloride 0.9% 50 ml @ 100 mls/hr IVPB Q24H JUMA Rx#:[id number] Oral 660 Other: # Voids 1 2 - Exam -GENERAL: The patient is alert and oriented x3, not in any acute distress. Well developed, well nourished. Generally weak and lethargic HEENT: Pupils are round and equally reacting to light. EOMI. No scleral icterus. No conjunctival pallor. Normocephalic, atraumatic. No pharyngeal erythema. No thyromegaly. CARDIOVASCULAR: S1 and S2 present. No murmurs, rubs, or gallops. -PULMONARY: Chest is clear to auscultation, no whee bilateral scattered wheezing and crackles. Mildly tachypneic on nasal cannula ABDOMEN: Soft, nontender, nondistended, normoactive bowel sounds. No palpable organomegaly. MUSCULOSKELETAL: No joint swelling or deformity. EXTREMITIES: No cyanosis, clubbing, or pedal edema. NEUROLOGICAL: Gross neurological examination did not reveal any focal deficits. SKIN: No rashes. no petechiae. - Labs CBC & Chem 7: 06/23/24 06:31 06/24/24 07:24 Labs: Abnormal Lab Results - Last 24 Hours (Table) 06/23/24 06/23/24 06/23/24 Range/Units 11:23 16:24 20:10 Carbon Dioxide (22-30) mmol/L BUN (9-20) mg/dL Creatinine (0.66-1.25) mg/dL Glucose (74-99) mg/dL POC Glucose (mg/dL) 137 H 209 H 252 H (70-110) mg/dL 06/24/24 06/24/24 Range/Units 06:21 07:24 Carbon Dioxide 19 L (22-30) mmol/L BUN 64 H (9-20) mg/dL Creatinine 2.93 H (0.66-1.25) mg/dL Glucose 168 H (74-99) mg/dL POC Glucose (mg/dL) 185 H (70-110) mg/dL Microbiology - Last 24 Hours (Table) 06/20/24 23:31 Blood Culture Gram Stain - Final Blood Blood Culture - Final Streptococcus pneumoniae Molecular ID Assessment and Plan Assessment: Left lower lobe pneumonia Bilateral pulmonary congestion and edema for acute CHF, which is suspected both systolic and diastolic dysfunction with slightly lowered ejection fraction Acute hypoxic respiratory failure secondary to above, improving Acute GI bleed is suspected with iron deficiency anemia. Normocytic anemia, chronic with recent worsening and black stool. Bacteremia with positive blood culture for staph coccus pneumoniae Chronic kidney disease stage IV secondary to diabetic nephropathy Diabetes mellitus Hypertension Hyperlipidemia History of paroxysmal atrial fibrillation Fibromyalgia History of pneumonia Chronic low back pain and degenerative disc disease of the lumbar spine. Plan: Continue with ceftriaxone and Zithromax Check sputum culture Hold aspirin and monitor hemoglobin. Transfuse 1 unit of blood if hemoglobin less than 7. Also will call surgery team consult Start Protonix. Consult nephrology team and cardiology from emergency room Will ask also pulmonary service to evaluate the patient Labs and medication were reviewed.. Continue same treatment. Continue with symptomatic treatment. Resume home medication. Monitor labs and vitals. DVT and GI prophylaxis. Further recommendations as per clinical course of the patient DVT prophylaxis: no Subcutaneous heparin in view of possible GI bleed. Will continue with mechanical GI Prophylaxis: Protonix PT/OT: Pending Prognosis is guarded
--- NOTE | 2024-06-24 11:01 | P.PN ---
Subjective Progress Note Date: 06/24/24 Principal diagnosis: Shortness of breath. Pulmonary consultation dated June 21, 2024. 78-year-old male who follows with a family doctor in [place], who recently retired, as well as Dr. Cortés in cardiology, my partner, and Dr. Rodriguez in nephrology. The patient presented to the emergency department, at about 10:00 PM, on June 20. He came in with shortness of breath. He was brought in by EMS. The patient states that he could only walk just a few feet before coming short of breath. It had been going on for a couple of days, and maybe a bit longer. He got progressively worse, so the patient came in to be evaluated. He is seen in the emergency department, room 22. The patient was initially on BiPAP, settings of 12/6, and 40%. When we saw him in the emergency department, he was just getting off the bedside commode, and was not wearing any oxygen whatsoever. The patient has no history of tobacco use, and he does not use home oxygen. I asked him what he sees my partner for, and he says that he is short of breath, primarily from heart disease. He did have an elevated procalcitonin level of 6.60. His BNP was quite high at 84,500. He was placed on azithromycin and Rocephin. Current laboratory data includes a white count 13, hemoglobin 8.3, hematocrit 25.8, and a platelet count of 144,000. Sodium 135, potassium 3, chlorides 103, CO2 17, anion gap 15, BUN 70, creatinine 3.03. Glucose is 199. Troponin was 0.104. ALT was 50. Viral screen was negative. Chest x-ray in my opinion, showed diffuse bilateral infiltrates, with a predominance in the left lower lobe. In addition to azithromycin and Rocephin, the patient was given Symbicort, updrafts with DuoNeb, and Lasix. Progress note dated June 22, 2024. 78-year-old male who was seen in consultation yesterday. We saw him in the emergency department yesterday. Today, we see him in room 371. He is feeling a bit better. He is currently on 5 L nasal cannula. He did use the BiPAP briefly last night, with settings of 12/6, and 40%. He is not receiving any IV fluids at this time. Current laboratory data includes a white count 5.4, hemoglobin 7.6, hematocrit 25.6, and a platelet count of 129,000. Sodium 139, potassium 2.9, chlorides 108, CO2 20, BUN 80, and creatinine 3.33. Glucose is 121. Calcium 8.5. Magnesium 2.2. Blood cultures are apparently positive for Streptococcus pneumoniae. The patient is currently on Rocephin, Symbicort, Lasix, and updrafts. Progress note dated June 23, 2024. 78-year-old male seen today in room 371. He was seen in consultation 2 days ago . He is resting comfortably in bed. He is awake and alert. He is on 2 L nasal cannula. No IV fluids. He apparently scheduled to have a colonoscopy today. He continues on Rocephin. Blood cultures were positive for Streptococcus pneumoniae. Procalcitonin level was elevated. Current laboratory data includes a white count 5.2, hemoglobin 7.7, hematocrit 25.2, and a platelet count of 130,000. Sodium 139, potassium 3.9, chlorides 109, CO2 18, anion gap 12, BUN 74, creatinine 3.13. Glucose is 137. Calcium 8.4, magnesium 2.1. Progress note dated June 24, 2024. 78-year-old male seen today in room 371. The patient states that he is finally feeling a bit better. He continues on oxygen, by nasal cannula 2 L. Is not receiving any IV fluids. He does continue on Rocephin for blood culture positive for Streptococcus pneumoniae. The patient denies any worsening or more severe shortness of breath, cough, wheezing, chest tightness, or phlegm production. Current laboratory data includes a sodium 138, potassium 4, chlorides 107, CO2 19, anion gap 12, BUN 64, and creatinine 2.93. Glucose is 168, calcium 8.7, and magnesium 2.1. Objective - Vital Signs Vital signs: Vital Signs Temp 98 F 06/24/24 09:35 Pulse 86 06/24/24 09:35 Resp 22 06/24/24 09:35 BP 121/50 06/24/24 09:35 Pulse Ox 98 06/24/24 09:35 FiO2 40 06/21/24 13:35 Intake & Output 06/23/24 06/24/24 06/24/24 18:59 06:59 18:59 Intake Total 823 10 Balance 823 10 Weight 70.4 kg Intake: IV 13 10 Invasive Line 1 13 10 Intake, IV Titration 150 Amount Sodium Ferric Gluconat- 100 Sucrose 125 mg In Sodium Chloride 0.9% 100 ml @ 100 mls/hr IVPB DAILY JUMA Rx#:[id number] cefTRIAXone 2 gm In 50 Sodium Chloride 0.9% 50 ml @ 100 mls/hr IVPB Q24H JUMA Rx#:[id number] Oral 660 Other: # Voids 1 2 - Exam No acute distress, oriented 3. Is able to speak in full sentences. No audible wheezing. Cough is dry. The patient is currently on 2 L nasal cannula. HEENT examination is grossly unremarkable. Mucous membranes are moist. No oral lesions. Neck supple. Full range of motion. No adenopathy thyromegaly or neck vein distention. Cardiovascular examination reveals regular rhythm rate. S1-S2 normal. No S3 or S4. No discernible murmur noted. Heart sounds are distant. Lungs reveal scattered bilateral rhonchi and crackles. Breath sounds equal. No distinct wheezes noted. Abdomen soft bowel sounds are heard. No masses or tenderness. Extremities are intact. No cyanosis clubbing or edema. Skin is without rash or lesion. Neurologic examination is brief but nonfocal. - Labs CBC & Chem 7: 06/23/24 06:31 06/24/24 07:24 Labs: Abnormal Lab Results - Last 24 Hours (Table) 06/23/24 06/23/24 06/23/24 Range/Units 11:23 16:24 20:10 Carbon Dioxide (22-30) mmol/L BUN (9-20) mg/dL Creatinine (0.66-1.25) mg/dL Glucose (74-99) mg/dL POC Glucose (mg/dL) 137 H 209 H 252 H (70-110) mg/dL 06/24/24 06/24/24 Range/Units 06:21 07:24 Carbon Dioxide 19 L (22-30) mmol/L BUN 64 H (9-20) mg/dL Creatinine 2.93 H (0.66-1.25) mg/dL Glucose 168 H (74-99) mg/dL POC Glucose (mg/dL) 185 H (70-110) mg/dL Microbiology - Last 24 Hours (Table) 06/20/24 23:31 Blood Culture Gram Stain - Final Blood Blood Culture - Final Streptococcus pneumoniae Molecular ID Assessment and Plan Assessment: Acute hypoxemic respiratory failure, likely multifactorial, in part related to pneumonia, left lower lobe, fluid overload/CHF, and renal failure. Streptococcus pneumoniae bacteremia. History of coronary artery disease, status post CABG. History of chronic atrial fibrillation. History of hypertension. History of diabetes mellitus. History of chronic renal failure, with Wednesday, Wednesday, and Wednesday hemodialysis. History of chronic anxiety. Lifelong non-smoker. History of hyperlipidemia. History of BPH. Plan: Plan dated June 21, 2024. The patient is seen in the emergency department. The patient was initially placed on BiPAP, but when we saw the patient, she was actually on room air. The patient could speak in full sentences. The patient follows with his primary care physician, who recently retired, cardiology, urology, [facility], [facility] The patient is a lifelong non-smoker, and states he does not have a history of chronic lung disease. He does not use home oxygen. His procalcitonin level was 6.60, and his BNP was 84,500. He was placed on breathing treatments, and antibiotics. We will continue to follow. Prognosis is guarded. Labs, x-rays, and medications are all reviewed. Dictation was produced using [employer] software. Please excuse any grammatical, word or spelling errors. Plan dated June 22, 2024. The patient is seen today in room 371. Yesterday he was seen in the emergency department. He was admitted with a diagnosis of CHF, he was profoundly short of breath. Currently he is on 5 L nasal cannula. He is not receiving any IV fluids. The patient wore the BiPAP last night briefly at 12/6, and 40%. His blood cultures were positive for Streptococcus pneumoniae. He continues on Ángel ephin. Labs, x-rays, and all medications are reviewed. We will continue to follow the patient and make recommendations where appropriate. Prognosis is guarded. Dictation was produced using [employer] software. Please excuse any grammatical, word or spelling errors. Plan dated June 23, 2024. The patient is seen today in room 371. The patient is resting comfortably in bed. He is laying flat in bed. He is on 2 L of oxygen. No IV fluids. He apparently is scheduled for colonoscopy today. He continues on Rocephin for Streptococcus pneumonia bacteremia. His procalcitonin level was elevated. Labs, x-rays, and all medications are reviewed. Overall, he is doing better. His respiratory status is improved. He states that his breathing is better, and he is less short of breath. We will continue to follow. Prognosis is guarded. Dictation was produced using [employer] software. Please excuse any grammatical, word or spelling errors. Plan dated June 24, 2024. The patient is seen today in room 371. He continues on nasal O2 at 2 L. The patient is not receiving any IV fluids. He continues on Rocephin for Streptococcus pneumonia bacteremia. Labs, x-rays, and medications are reviewed. We will continue to follow. Prognosis is guarded. Dictation was produced using [employer] software. Please excuse any grammatical, word or spelling errors. Time with Patient: Less than 30
--- NOTE | 2024-06-24 11:02 | P.PN ---
Subjective Progress Note Date: 06/24/24 CHIEF COMPLAINT: Anemia HISTORY OF PRESENT ILLNESS: The patient is a 78-year-old male with pre-existing history of CABG, end-stage renal disease on dialysis who presented with shortness of breath and congestive heart failure. He is more short of breath today. He reports being short of breath after moving around in his room. He also reports his is currently pending hospitalization at this time. Patient is allowable to pursue upper and lower endoscopy due to his persistent anemia. REVIEW OF ORGAN SYSTEMS: No fevers or chills. No acute chest pain. Has increased shortness of breath at time of assessment PHYSICAL EXAM: VITALS: Reviewed CONSTITUTIONAL: Well developed and in no acute distress. EYES: Conjuctivae without sclera icterus. Extraocular movements grossly intact. HEAD, EARS, NOSE, THROAT: Moist buccal mucosa. Head is atraumatic, normocephalic. Hears conversational speech. No nasal drainage. RESPIRATORY: Mild labored respirations. CARDIOVASCULAR: Palpable 2+ radial pulses. ABDOMEN: Mild distention. Nontender. MUSCULOSKELETAL: No clubbing cyanosis or edema SKIN: Warm and well perfused with good skin turgor. NEUROLOGIC: Cranial nerves II through XII grossly intact. No focal or lateralizing signs. PSYCH: Appropriate affect. Alert and oriented to person, place and time. Displays appropriate insight. CLINCAL LABS: Reviewed. Creatinine improved from 3.33-2.93. Hemoglobin down 8.3-7.7, yesterday. ASSESSMENT: 1. Congestive heart failure 2. Atrial fibrillation 3. Chronic anemia 4. Gastrointestinal bleeding 5. History of CABG 6. End-stage renal disease PLAN: 1. Patient does have improvement of her renal function and low volume prep with 2 L GoLytely instead of 4 L GoLytely described. 2. Will start cathartics with milk of magnesia 2400 mg twice daily including lactulose 30 mg twice daily today for bowel movements. 3. Will monitor magnesium level 4. Patient currently on full liquid. Diet being adjusted to clear liquid diet for tomorrow 5. Will anticipate upper and lower endoscopy on Wednesday. Objective - Vital Signs Vital signs: Vital Signs Temp 98 F 06/24/24 09:35 Pulse 86 06/24/24 09:35 Resp 22 06/24/24 09:35 BP 121/50 06/24/24 09:35 Pulse Ox 98 06/24/24 09:35 FiO2 40 06/21/24 13:35 Intake & Output 06/23/24 06/24/24 06/24/24 18:59 06:59 18:59 Intake Total 823 10 Balance 823 10 Weight 70.4 kg Intake: IV 13 10 Invasive Line 1 13 10 Intake, IV Titration 150 Amount Sodium Ferric Gluconat- 100 Sucrose 125 mg In Sodium Chloride 0.9% 100 ml @ 100 mls/hr IVPB DAILY JUMA Rx#:[id number] cefTRIAXone 2 gm In 50 Sodium Chloride 0.9% 50 ml @ 100 mls/hr IVPB Q24H JUMA Rx#:[id number] Oral 660 Other: # Voids 1 2 - Labs CBC & Chem 7: 06/23/24 06:31 06/24/24 07:24 Labs: Abnormal Lab Results - Last 24 Hours (Table) 06/23/24 06/23/24 06/23/24 Range/Units 11:23 16:24 20:10 Carbon Dioxide (22-30) mmol/L BUN (9-20) mg/dL Creatinine (0.66-1.25) mg/dL Glucose (74-99) mg/dL POC Glucose (mg/dL) 137 H 209 H 252 H (70-110) mg/dL 06/24/24 06/24/24 Range/Units 06:21 07:24 Carbon Dioxide 19 L (22-30) mmol/L BUN 64 H (9-20) mg/dL Creatinine 2.93 H (0.66-1.25) mg/dL Glucose 168 H (74-99) mg/dL POC Glucose (mg/dL) 185 H (70-110) mg/dL Microbiology - Last 24 Hours (Table) 06/20/24 23:31 Blood Culture Gram Stain - Final Blood Blood Culture - Final Streptococcus pneumoniae Molecular ID
--- NOTE | 2024-06-24 11:27 | P.PN ---
Subjective Progress Note Date: 06/24/24 Patient is seen in follow-up for chronic kidney disease. Renal function stable. Has been voiding. no new issues. getting IV iron Vital signs are stable. General: No acute distress. HEENT: Head exam is unremarkable. LUNGS: No audible rhonchi or wheezes. HEART: Rate and Rhythm are regular. ABDOMEN: Nontender. EXTREMITITES: Trace edema. Objective - Vital Signs Vital signs: Vital Signs Temp 98 F 06/24/24 09:35 Pulse 86 06/24/24 09:35 Resp 22 06/24/24 09:35 BP 121/50 06/24/24 09:35 Pulse Ox 98 06/24/24 09:35 FiO2 40 06/21/24 13:35 Intake & Output 06/23/24 06/24/24 06/24/24 18:59 06:59 18:59 Intake Total 823 10 Balance 823 10 Weight 70.4 kg Intake: IV 13 10 Invasive Line 1 13 10 Intake, IV Titration 150 Amount Sodium Ferric Gluconat- 100 Sucrose 125 mg In Sodium Chloride 0.9% 100 ml @ 100 mls/hr IVPB DAILY [facility] Rx#:[id number] cefTRIAXone 2 gm In 50 Sodium Chloride 0.9% 50 ml @ 100 mls/hr IVPB Q24H [facility] Rx#:[id number] Oral 660 Other: # Voids 1 2 - Labs CBC & Chem 7: 06/23/24 06:31 06/24/24 07:24 Labs: Abnormal Lab Results - Last 24 Hours (Table) 06/23/24 06/23/24 06/23/24 Range/Units 11:23 16:24 20:10 Carbon Dioxide (22-30) mmol/L BUN (9-20) mg/dL Creatinine (0.66-1.25) mg/dL Glucose (74-99) mg/dL POC Glucose (mg/dL) 137 H 209 H 252 H (70-110) mg/dL 06/24/24 06/24/24 Range/Units 06:21 07:24 Carbon Dioxide 19 L (22-30) mmol/L BUN 64 H (9-20) mg/dL Creatinine 2.93 H (0.66-1.25) mg/dL Glucose 168 H (74-99) mg/dL POC Glucose (mg/dL) 185 H (70-110) mg/dL Microbiology - Last 24 Hours (Table) 06/20/24 23:31 Blood Culture Gram Stain - Final Blood Blood Culture - Final Streptococcus pneumoniae Molecular ID Assessment and Plan Plan: Assessment: 1. Chronic kidney disease stage IV baseline creatinine 3-3.5 secondary to nephrosclerosis and diabetic kidney disease. Kidney biopsy in the past showed ATN superimposed on chronic injury with acute inflammation suggestive of polynephritis/reflux nephropathy. 2. Hypokalemia from diuresis and poor intake. Magnesium normal. Replaced. Improved. 3. Metabolic acidosis secondary to chronic kidney disease. On oral bicarb. 4. Acute hypoxic respiratory failure. 5. Pneumonia on antibiotics. Blood cultures positive for strep pneumo. 6. Anemia of chronic kidney disease. Iron deficiency noted. Receiving IV iron. Also on Aranesp. Having dark bowel movements. Surgery following. Endoscopy once medically stable. 7. Hypertension with chronic kidney disease. Stable. 8. Diabetes mellitus. 9. Lower extremity edema. Better with diuresis. Plan: Encouraged oral intake. Maintain torsemide. Maintain IV iron. Wean FiO2. Avoid nephrotoxins. Continue to monitor renal function and urine output.
[2024-06-24 11:32] LABS: Glucose,Whole Blood 146 mg/dL (70-110)
[2024-06-24] MEDS: LACTULOSE 20 GM/30 ML CUP PO SCH (11:40)
[2024-06-24] MEDS: MAGNESIUM HYDROXIDE 2,400 MG/30 ML CUP PO SCH (11:40)
--- NOTE | 2024-06-24 16:01 | P.PN ---
Subjective Progress Note Date: 06/24/24 Principal diagnosis: Reason for follow up with Streptococcus pneumoniae bacteremia and pneumonia Patient is a 78-year-old male with a past medical history significant for Atrial Fibrillation, Coronary Artery Disease (CAD), Diabetes Mellitus, Dialysis, Hypertension, Prostate Disorder, Renal Disease, presenting to the hospital for evaluation of increasing shortness of breath and weakness, patient presenting with left lower lobe pneumonia positive blood culture with strep pneumo prompting this consultation. On today's evaluation that is 06/24/2024, patient did not have any fever and denies any chills, patient is breathing comfortably on 2 L, oxygen, patient with no chest pain or any worsening cough patient did not have any abdominal pain nausea vomiting or any loose stools. Patient creatinine 2.93 no CBC was done today Objective - Vital Signs Vital signs: Vital Signs Temp 99 F 06/24/24 11:40 Pulse 96 06/24/24 15:26 Resp 22 06/24/24 11:40 BP 133/77 06/24/24 11:40 Pulse Ox 99 06/24/24 11:40 FiO2 40 06/21/24 13:35 Intake & Output 06/23/24 06/24/24 06/24/24 18:59 06:59 18:59 Intake Total 698 05 8113 Balance 635 49 4902 Weight 70.4 kg Intake: IV 13 10 Invasive Line 1 13 10 Intake, IV Titration 150 Amount Sodium Ferric Gluconat- 100 Sucrose 125 mg In Sodium Chloride 0.9% 100 ml @ 100 mls/hr IVPB DAILY [facility] Rx#:[id number] cefTRIAXone 2 gm In 50 Sodium Chloride 0.9% 50 ml @ 100 mls/hr IVPB Q24H [facility] Rx#:[id number] Oral 660 1060 Other: # Voids 1 2 1 - Exam GENERAL DESCRIPTION: An elderly male lying in bed in no distress RESPIRATORY SYSTEM: Unlabored breathing , decreased breath sounds at bases HEART: S1 S2 regular rate and rhythm , ABDOMEN: Soft , no tenderness EXTREMITIES: No edema feet - Labs CBC & Chem 7: 06/23/24 06:31 06/24/24 07:24 Labs: Abnormal Lab Results - Last 24 Hours (Table) 06/23/24 06/23/24 06/24/24 Range/Units 16:24 20:10 06:21 Carbon Dioxide (22-30) mmol/L BUN (9-20) mg/dL Creatinine (0.66-1.25) mg/dL Glucose (74-99) mg/dL POC Glucose (mg/dL) 209 H 252 H 185 H (70-110) mg/dL 06/24/24 06/24/24 Range/Units 07:24 11:29 Carbon Dioxide 19 L (22-30) mmol/L BUN 64 H (9-20) mg/dL Creatinine 2.93 H (0.66-1.25) mg/dL Glucose 168 H (74-99) mg/dL POC Glucose (mg/dL) 146 H (70-110) mg/dL Microbiology - Last 24 Hours (Table) 06/20/24 23:31 Blood Culture Gram Stain - Final Blood Blood Culture - Final Streptococcus pneumoniae Molecular ID Assessment and Plan (1) Bacteremia Current Visit: Yes Status: Acute Code(s): R78.81 - BACTEREMIA SNOMED Code(s): 0711874 (2) Pneumonia Current Visit: Yes Status: Acute Code(s): J18.9 - PNEUMONIA, UNSPECIFIED ORGANISM SNOMED Code(s): 551818167 (3) Sepsis Current Visit: Yes Status: Acute Code(s): A41.9 - SEPSIS, UNSPECIFIED ORGANISM SNOMED Code(s): 34163989 Plan: 1patient presented to hospital with sepsis in this patient who did have a elevated white count tachycardia meeting currently for SIRS source of the left lower lobe pneumonia likely community-acquired. 2patient with a Streptococcus pneumoniae bacteremia source is left lower lobe pneumonia. 3patient with a renal insufficiency high risk of nephrotoxicity from certain antibiotics. 4patient blood culture have been finalized with strep pneumo that is sensitive to ceftriaxone 5patient to continue with Rocephin while inpatient and monitor clinical course closely Dictation was produced using [employer] dictation software. please excuse any grammatical, word or spelling errors. Time with Patient: Less than 30
[2024-06-24 16:42] LABS: Glucose,Whole Blood 107 mg/dL (70-110)
[2024-06-24 20:42] LABS: Glucose,Whole Blood 194 mg/dL (70-110)
[2024-06-25 05:58] LABS: Glucose,Whole Blood 131 mg/dL (70-110)
[2024-06-25] MEDS: PEG 3350 (420 GM/BTL) + LYTES 4,000 ML BOTTLE PO ONE (08:15)
--- NOTE | 2024-06-25 08:25 | P.PN ---
Subjective Progress Note Date: 06/25/24 The patient is a pleasant 78-year-old gentleman who is known to our service from before with extensive cardiovascular history consistent of history of CAD status post CABG with unknown details at this point as well as cardiomyopathy with EF between 45 to 50% and history of heart failure and advanced chronic kidney disease as well as permanent atrial fibrillation and multiple comorbid conditions. He presented to the hospital with 3 to 4 days history of progressive exertional dyspnea associated with cough with no sputum production and no fever and no chills but congestions and also bilateral lower extremities edema. No change in the weight according to him. No symptoms of chest pain or chest discomfort or dizziness or lightheadedness or any feeling of heart racing or fluttering or presyncope or syncope. He underwent further evaluation including EKG showing atrial fibrillation with diffuse nonspecific ST and T wave abnormalities and also he underwent chest x-ray showed pneumonia. His creat inine is elevated and he is known to have chronic kidney disease. He is not on dialysis. He was seen by the nephrology service and he received 1 dose of IV Lasix and he was placed on oral diuretics. The physical examination is remarkable for irregular rhythm with a very distant heart sounds and heart to hear any cardiac murmurs because of extensive wheezing and extensive crackles bilaterally. Otherwise the physical examination is remarkable for severe bilateral lower extremities pitting edema June 22, 2024 The patient was seen and evaluated this morning. Overall he is feeling better. The shortness of breath is slightly better. No other cardiovascular symptoms including any chest pain. Hemodynamically he is stable with a hemoglobin has came down and for that reason and for the reason that he was tested positive for blood in the stool oral anticoagulation with Eliquis is on hold at this point. He is on oral diuretics. The physical examination is remarkable for bilateral expiratory wheezing and no edema was noted in the lower extremities. June 23, 2024 The patient was seen and evaluated this morning. He did have some nosebleed yesterday. Oral anticoagulation continues to be on hold for ruling out GI bleeding and he is in process of having an EGD. The physical examination is remarkable for irregular rhythm with bilateral expiratory wheezing and mild bilateral lower extremity edema. Currently he is on oral diuretics. June 24, 2024 The patient was seen and evaluated this morning. He stated that the shortness of breath is slightly better and no symptoms of chest pain. Hemodynamically he is stable with he is going to undergo an EGD this coming Wednesday. Oral anticoagulation is on hold. He is on oral diuretics as well. The physical examination is remarkable for irregular rhythm with improvement in the wheezing since yesterday and mild bilateral lower extremities edema. June 25, 2024 The patient was seen and evaluated this morning and his main complaint is being weak but his hemoglobin continues to be low around 7. He does have shortness of breath with exertion appears to be the same as before and bilateral lower extremity edema also appears to be the same as before no symptoms of chest pain or chest comfort. Hemodynamically he is stable. He is on oral diuretics. He is not on any oral anticoagulation. The plan is to pursue colonoscopy tomorrow and he is getting only prep for it. The physical examination is remarkable for irregular rhythm with a systolic murmur and bilateral rhonchi/wheezing and mild bilateral lower extremities edema Assessment Acute hypoxic respiratory failure Heart failure with HFrEF Permanent atrial fibrillation with controlled heart rate CAD status post CABG Advanced chronic kidney disease Anemia Plan Continue current medical regimen. Continue monitor the kidney function and electrolytes Continue monitor the hemoglobin as well Continue oral diuretics Use compression socks Follow-up with the patient after the EGD Objective - Vital Signs Vital signs: Vital Signs Temp 98.4 F 06/24/24 20:00 Pulse 80 06/25/24 06:38 Resp 20 06/25/24 06:38 BP 139/84 06/25/24 06:38 Pulse Ox 97 06/25/24 06:38 FiO2 40 06/21/24 13:35 Intake & Output 06/24/24 06/25/24 06/25/24 18:59 06:59 18:59 Intake Total 1160 Balance 1160 Weight 66.8 kg Intake: Intake, IV Titration 100 Amount Sodium Ferric Gluconat- 100 Sucrose 125 mg In Sodium Chloride 0.9% 100 ml @ 100 mls/hr IVPB DAILY [facility] Rx#:[id number] Oral 1060 Other: # Voids 6 2 # Bowel Movements 6 2 - Labs CBC & Chem 7: 06/23/24 06:31 06/24/24 07:24 Labs: Abnormal Lab Results - Last 24 Hours (Table) 06/24/24 06/24/24 06/25/24 Range/Units 11:29 20:27 05:39 POC Glucose (mg/dL) 146 H 194 H 131 H (70-110) mg/dL
--- NOTE | 2024-06-25 08:41 | P.PN ---
Subjective Progress Note Date: 06/25/24 CHIEF COMPLAINT: Anemia HISTORY OF PRESENT ILLNESS: The patient is a 78-year-old male with pre-existing history of CABG, renal disease including congestive heart failure. He is undergoing a breathing treatment. He is having multiple bowel movements with milk of magnesia including lactulose prep. He is pending his low volume Nulytely prep today. Patient agreed for both upper and lower endoscopy for tomorrow. REVIEW OF ORGAN SYSTEMS: No fevers or chills. No acute chest pain. Has increased shortness of breath at time of assessment PHYSICAL EXAM: VITALS: Reviewed CONSTITUTIONAL: Well developed and in no acute distress. EYES: Conjuctivae without sclera icterus. Extraocular movements grossly intact. HEAD, EARS, NOSE, THROAT: Moist buccal mucosa. Head is atraumatic, normocephalic. Hears conversational speech. No nasal drainage. RESPIRATORY: Mild labored respirations. CARDIOVASCULAR: Palpable 2+ radial pulses. ABDOMEN: Mild distention. Nontender. MUSCULOSKELETAL: No clubbing cyanosis or edema SKIN: Warm and well perfused with good skin turgor. NEUROLOGIC: Cranial nerves II through XII grossly intact. No focal or lateralizing signs. PSYCH: Appropriate affect. Alert and oriented to person, place and time. Displays appropriate insight. CLINCAL LABS: Reviewed. Creatinine improved from 3.33-2.93. Labs from today are pending. ASSESSMENT: 1. Congestive heart failure 2. Atrial fibrillation 3. Chronic anemia 4. Gastrointestinal bleeding 5. History of CABG 6. End-stage renal disease PLAN: 1. Nulytely prep 2 L prescribed. Will avoid high volume prep 4 L due to pre- existing congestive heart failure. 2. N.p.o. after midnight for EGD and colonoscopy 3. Due to comorbidities, patient is elevated risk Objective - Vital Signs Vital signs: Vital Signs Temp 98.4 F 06/24/24 20:00 Pulse 89 06/25/24 08:30 Resp 20 06/25/24 06:38 BP 139/84 06/25/24 06:38 Pulse Ox 94 L 06/25/24 08:31 FiO2 40 06/21/24 13:35 Intake & Output 06/24/24 06/25/24 06/25/24 18:59 06:59 18:59 Intake Total 1160 Balance 1160 Weight 66.8 kg Intake: Intake, IV Titration 100 Amount Sodium Ferric Gluconat- 100 Sucrose 125 mg In Sodium Chloride 0.9% 100 ml @ 100 mls/hr IVPB DAILY [facility] Rx#:[id number] Oral 1060 Other: # Voids 6 2 # Bowel Movements 6 2 - Labs CBC & Chem 7: 06/23/24 06:31 06/24/24 07:24 Labs: Abnormal Lab Results - Last 24 Hours (Table) 06/24/24 06/24/24 06/25/24 Range/Units 11:29 20:27 05:39 POC Glucose (mg/dL) 146 H 194 H 131 H (70-110) mg/dL
[2024-06-25 11:57] LABS: Glucose,Whole Blood 203 mg/dL (70-110)
--- NOTE | 2024-06-25 11:57 | P.PN ---
Subjective This is a pleasant 78 years old male with past medical history of multiple medical problems as below Presents because of fever and dyspnea and cough and chest pain x 2 weeks. He went to see his balloon maker Dr. Chambers and Dr. Hobson. However patient kept to get worse. He decided to come to the hospital Currently he is on BiPAP he is coughing through the BiPAP he states he has clear phlegm and also he is breathing fast more than 25 breaths/min. He denies chest pain currently. No abdominal pain or vomiting but reports he has diarrhea, he has 1 loose bowel movement yesterday and he had 1 loose and black bowel movement this morning. No urinary complaint he has dizziness but no headache weakness or numbness No history of smoking. However daily drinking of alcohol is reported, marijuana abuse is also recorded He is currently tachypneic, he had low-grade temperature 99.5. On admission he was saturating 91 on room air but currently BiPAP He has mild leukocytosis of 13,000, hemoglobin dropped to 8.3 with baseline about 10-11. Platelet count 144. Creatinine 3.0 with baseline 3-6. proBNP is elevated at 4500. Chest x-ray showing left lower lobe infiltrate suspicious for pneumonia EKG showing sinus rhythm at [address]-T changes. Patient started on ceftriaxone and Zithromax also he is on aspirin 81 mg. Last echocardiogram from 02/19/2024: Showed ejection fraction of 45 to 50% 06/22 Patient states his breathing is slightly better, he still on 5 L oxygen via nasal cannula He is afebrile with no chest pain or abdominal pain He still has black stool and occult blood was positive, hemoglobin dropped to 7.6. Suspicion of GI bleed is high therefore consulting surgery team as there is no GI in this facility during this week He is already on IV Protonix twice daily. We are going to hold his aspirin 81 mg. If his hemoglobin drops less than 7 okay for monitoring of blood transfusion He is on Rocephin and Zithromax. Procalcitonin is elevated. Anemia workup is requested He denies history of alcohol although it was documented in the chart therefore we will discontinue CIWA protocol. 06/23 Patient slightly better breathing today he still tachypneic with breathing rate about 26 but has good oxygen saturation. No chest pain no abdominal pain He has dark brownish stool but not black. Hemoglobin stable today at 7.7. He got IV iron yesterday. aspirin remains on hold, he is on IV Protonix twice daily, Remains on antibiotic ceftriaxone and Zithromax. Blood culture positive for Streptococcus pneumonia Creatinine slightly worse today at 3.3. 06/24 Patient still feels very weak overall he is better than he came in, he is sitting at the side of the chair She he still quite tachypneic and short of breath he still has coarse crepitation with inspiration His creatinine slightly coming down to 0.9 Hemoglobin 7.7 with no more episodes of bloody stool. Aspirin remains on hold for now he is still getting IV Protonix He still on ceftriaxone with positive blood culture 06/25 Patient still feels short of breath, no chest pain. He still has scattered wheezing and coarse crepitation He is saturating low 90s on 2 L oxygen via nasal cannula He is advanced stage kidney disease but not on dialysis, has good urine output on torsemide Plan for EGD/colonoscopy tomorrow. From medical perspective he is at accelerated risk from the procedure due to his heart and kidney problem and heart failure but there is no absolute contraindication Review of systems NEUROLOGICAL: No headaches, no weakness, no numbness. HEMATOLOGICAL: Denies any bleeding or petechiae. GENITOURINARY: Denies any burning micturition, frequency, or urgency. MUSCULOSKELETAL/RHEUMATOLOGICAL: Denies any joint pain, swelling, or any muscle pain. ENDOCRINE: Denies any polyuria or polydipsia. Active Medications Generic Name Dose Route Start Last Admin Trade Name Freq PRN Reason Stop Dose Admin Albuterol/Ipratropium 3 ml 06/21/24 08:00 06/25/24 11:47 Ipratropium-Albuterol 3 Ml Neb INHALATION 3 ml RT-QID [facility] Administration Amlodipine Besylate 5 mg 06/21/24 09:00 06/25/24 08:15 Amlodipine 5 Mg Tab PO 5 mg QAM [facility] Administration Budesonide/Formoterol Fumarate 1 puff 06/21/24 08:06/25/24 08:29 Symbicort 160-4.5 Mcg Inhaler INHALATION 1 puff RT-BID [facility] Administration Darbepoetin Louis 40 mcg 06/22/24 11:00 06/22/24 11:32 Darbepoetin Louis 40 Mcg/0.4 Ml Syringe SQ 40 mcg Q7D [facility] Administration Glipizide 2.5 mg 06/21/24 09:00 06/24/24 09:38 Glipizide 5 Mg Tab PO 2.5 mg Q72H [facility] Administration Sodium Chloride 1,000 mls @ 20 mls/hr 06/21/24 01:00 06/25/24 06:50 Saline 0.9% IV Not Given .Q24H [facility] Lactulose 30 gm 06/24/24 11:00 06/25/24 08:15 Lactulose 20 Gm/30 Ml Cup PO 30 gm BID [facility] Administration Magnesium Hydroxide 2,400 mg 06/24/24 11:00 06/25/24 08:15 Magnesium Hydroxide 2,400 Mg/30 Ml Cup PO 2,400 mg BID [facility] Administration Meclizine HCl 25 mg 06/21/24 09:00 06/25/24 08:15 Meclizine 25 Mg Tab PO 25 mg BID [facility] Administration Metoprolol Tartrate 25 mg 06/21/24 21:00 06/25/24 08:15 Metoprolol Tartrate 25 Mg Tab PO 25 mg BID [facility] Administration Miscellaneous Information 1 each 06/21/24 01:00 Pneumonia Protocol Utilized 1 Each Misc PO ONCE PRN Per Protocol Miscellaneous Information 1 each 06/21/24 05:28 Potassium Replacement Protocol 1 Each Misc MISCELLANE DAILY PRN Per Protocol Protocol Pantoprazole Sodium 40 mg 06/21/24 09:00 06/25/24 08:15 Pantoprazole 40 Mg/10 Ml Vial IVP 40 mg BID [facility] Administration Pravastatin Sodium 40 mg 06/21/24 21:00 06/24/24 20:10 Pravastatin Sodium 40 Mg Tab PO 40 mg HS [facility] Administration Sodium Bicarbonate 650 mg 06/21/24 21:00 06/25/24 08:15 Sodium Bicarbonate Tab 650 Mg Tab PO 650 mg BID [facility] Administration Tamsulosin HCl 0.4 mg 06/21/24 09:00 06/25/24 08:15 Tamsulosin 0.4 Mg Cap.Er.24h PO 0.4 mg BID [facility] Administration Torsemide 20 mg 06/22/24 09:00 06/25/24 08:15 Torsemide 20 Mg Tab PO 20 mg DAILY [facility] Administration Objective - Vital Signs Vital signs: Vital Signs Temp 98.3 F 06/25/24 08:10 Pulse 91 06/25/24 11:47 Resp 20 06/25/24 08:10 BP 120/61 06/25/24 08:10 Pulse Ox 94 L 06/25/24 08:31 FiO2 40 06/21/24 13:35 Intake & Output 06/24/24 06/25/24 06/25/24 18:59 06:59 18:59 Intake Total 1160 320 Balance 1160 320 Weight 66.8 kg Intake: Intake, IV Titration 100 Amount Sodium Ferric Gluconat- 100 Sucrose 125 mg In Sodium Chloride 0.9% 100 ml @ 100 mls/hr IVPB DAILY [facility] Rx#:[id number] Oral 1060 320 Other: # Voids 6 2 # Bowel Movements 6 2 - Exam -GENERAL: The patient is alert and oriented x3, not in any acute distress. Well developed, well nourished. Generally weak and lethargic HEENT: Pupils are round and equally reacting to light. EOMI. No scleral icterus. No conjunctival pallor. Normocephalic, atraumatic. No pharyngeal erythema. No thyromegaly. CARDIOVASCULAR: S1 and S2 present. No murmurs, rubs, or gallops. -PULMONARY: Chest is clear to auscultation, no whee bilateral scattered wheezing and crackles. Mildly tachypneic on nasal cannula ABDOMEN: Soft, nontender, nondistended, normoactive bowel sounds. No palpable organomegaly. MUSCULOSKELETAL: No joint swelling or deformity. EXTREMITIES: No cyanosis, clubbing, or pedal edema. NEUROLOGICAL: Gross neurological examination did not reveal any focal deficits. SKIN: No rashes. no petechiae. - Labs CBC & Chem 7: 06/23/24 06:31 06/24/24 07:24 Labs: Abnormal Lab Results - Last 24 Hours (Table) 06/24/24 06/25/24 Range/Units 20:27 05:39 POC Glucose (mg/dL) 194 H 131 H (70-110) mg/dL Assessment and Plan Assessment: Left lower lobe pneumonia Bilateral pulmonary congestion and edema for acute CHF, which is suspected both systolic and diastolic dysfunction with slightly lowered ejection fraction Acute hypoxic respiratory failure secondary to above, improving Acute GI bleed is suspected with iron deficiency anemia. Normocytic anemia, chronic with recent worsening and black stool. Bacteremia with positive blood culture for staph coccus pneumoniae Chronic kidney disease stage IV secondary to diabetic nephropathy Diabetes mellitus Hypertension Hyperlipidemia History of paroxysmal atrial fibrillation Fibromyalgia History of pneumonia Chronic low back pain and degenerative disc disease of the lumbar spine. Plan: EGD/colonoscopy on 06/26 Patient finished his antibiotic and ceftriaxone was discontinued Continue on torsemide Hold aspirin and monitor hemoglobin. Transfuse 1 unit of blood if hemoglobin less than 7. Also will call surgery team consult Start Protonix. Consult nephrology team and cardiology team Will ask also pulmonary service to evaluate the patient Labs and medication were reviewed.. Continue same treatment. Continue with symptomatic treatment. Resume home medication. Monitor labs and vitals. DVT and GI prophylaxis. Further recommendations as per clinical course of the patient DVT prophylaxis: no Subcutaneous heparin in view of possible GI bleed. Will continue with mechanical GI Prophylaxis: Protonix PT/OT: Pending Prognosis is guarded
--- NOTE | 2024-06-25 12:29 | P.PN ---
Subjective Progress Note Date: 06/25/24 Principal diagnosis: Shortness of breath. Pulmonary consultation dated June 21, 2024. 78-year-old male who follows with a family doctor in [employer], who recently retired, as well as Dr. Cortés in cardiology, my partner, and Dr. Rodriguez in nephrology. The patient presented to the emergency department, at about 10:00 PM, on June 20. He came in with shortness of breath. He was brought in by EMS. The patient states that he could only walk just a few feet before coming short of breath. It had been going on for a couple of days, and maybe a bit longer. He got progressively worse, so the patient came in to be evaluated. He is seen in the emergency department, room 22. The patient was initially on BiPAP, settings of 12/6, and 40%. When we saw him in the emergency department, he was just getting off the bedside commode, and was not wearing any oxygen whatsoever. The patient has no history of tobacco use, and he does not use home oxygen. I asked him what he sees my partner for, and he says that he is short of breath, primarily from heart disease. He did have an elevated procalcitonin level of 6.60. His BNP was quite high at 84,500. He was placed on azithromycin and Rocephin. Current laboratory data includes a white count 13, hemoglobin 8.3, hematocrit 25.8, and a platelet count of 144,000. Sodium 135, potassium 3, chlorides 103, CO2 17, anion gap 15, BUN 70, creatinine 3.03. Glucose is 199. Troponin was 0.104. ALT was 50. Viral screen was negative. Chest x-ray in my opinion, showed diffuse bilateral infiltrates, with a predominance in the left lower lobe. In addition to azithromycin and Rocephin, the patient was given Symbicort, updrafts with DuoNeb, and Lasix. Progress note dated June 22, 2024. 78-year-old male who was seen in consultation yesterday. We saw him in the emergency department yesterday. Today, we see him in room 371. He is feeling a bit better. He is currently on 5 L nasal cannula. He did use the BiPAP briefly last night, with settings of 12/6, and 40%. He is not receiving any IV fluids at this time. Current laboratory data includes a white count 5.4, hemoglobin 7.6, hematocrit 25.6, and a platelet count of 129,000. Sodium 139, potassium 2.9, chlorides 108, CO2 20, BUN 80, and creatinine 3.33. Glucose is 121. Calcium 8.5. Magnesium 2.2. Blood cultures are apparently positive for Streptococcus pneumoniae. The patient is currently on Rocephin, Symbicort, Lasix, and updrafts. Progress note dated June 23, 2024. 78-year-old male seen today in room 371. He was seen in consultation 2 days ago . He is resting comfortably in bed. He is awake and alert. He is on 2 L nasal cannula. No IV fluids. He apparently scheduled to have a colonoscopy today. He continues on Rocephin. Blood cultures were positive for Streptococcus pneumoniae. Procalcitonin level was elevated. Current laboratory data includes a white count 5.2, hemoglobin 7.7, hematocrit 25.2, and a platelet count of 130,000. Sodium 139, potassium 3.9, chlorides 109, CO2 18, anion gap 12, BUN 74, creatinine 3.13. Glucose is 137. Calcium 8.4, magnesium 2.1. Progress note dated June 24, 2024. 78-year-old male seen today in room 371. The patient states that he is finally feeling a bit better. He continues on oxygen, by nasal cannula 2 L. Is not receiving any IV fluids. He does continue on Rocephin for blood culture positive for Streptococcus pneumoniae. The patient denies any worsening or more severe shortness of breath, cough, wheezing, chest tightness, or phlegm production. Current laboratory data includes a sodium 138, potassium 4, chlorides 107, CO2 19, anion gap 12, BUN 64, and creatinine 2.93. Glucose is 168, calcium 8.7, and magnesium 2.1. Progress note dated June 25, 2024. 78-year-old male seen in room 371. The patient seems to be doing better. He is on 2 L of oxygen. Saturations are 94 to 95%. The patient is currently receiving a prep, for a colonoscopy in the morning. The patient is not having any respiratory issues at this time. His white count is 19.1, hemoglobin 10.8, macro 35.9, and platelet count was normal. Sodium 135, potassium 4.8, chlorides 102, CO2 26, BUN 37, creatinine 1.40. Glucose is 129. Calcium is 8.2. No chest x-ray today. Objective - Vital Signs Vital signs: Vital Signs Temp 98.3 F 06/25/24 08:10 Pulse 96 06/25/24 11:59 Resp 20 06/25/24 11:45 BP 130/68 06/25/24 11:45 Pulse Ox 97 06/25/24 11:45 FiO2 40 06/21/24 13:35 Intake & Output 06/24/24 06/25/24 06/25/24 18:59 06:59 18:59 Intake Total 1160 1280 Balance 1160 1280 Weight 66.8 kg Intake: Intake, IV Titration 100 Amount Sodium Ferric Gluconat- 100 Sucrose 125 mg In Sodium Chloride 0.9% 100 ml @ 100 mls/hr IVPB DAILY [facility] Rx#:[id number] Oral 1060 1280 Other: # Voids 6 2 3 # Bowel Movements 6 2 3 - Exam No acute distress, oriented 3. Is able to speak in full sentences. No audible wheezing. Cough is dry. The patient is currently on 2 L nasal cannula. HEENT examination is grossly unremarkable. Mucous membranes are moist. No oral lesions. Neck supple. Full range of motion. No adenopathy thyromegaly or neck vein distention. Cardiovascular examination reveals regular rhythm rate. S1-S2 normal. No S3 or S4. No discernible murmur noted. Heart sounds are distant. Lungs reveal scattered bilateral rhonchi and crackles. Breath sounds equal. No distinct wheezes noted. Abdomen soft bowel sounds are heard. No masses or tenderness. Extremities are intact. No cyanosis clubbing or edema. Skin is without rash or lesion. Neurologic examination is brief but nonfocal. - Labs CBC & Chem 7: 06/23/24 06:31 06/24/24 07:24 Labs: Abnormal Lab Results - Last 24 Hours (Table) 06/24/24 06/25/24 06/25/24 Range/Units 20:27 05:39 11:55 POC Glucose (mg/dL) 194 H 131 H 203 H (70-110) mg/dL Assessment and Plan Assessment: Acute hypoxemic respiratory failure, likely multifactorial, in part related to pneumonia, left lower lobe, fluid overload/CHF, and renal failure. Streptococcus pneumoniae bacteremia. History of coronary artery disease, status post CABG. History of chronic atrial fibrillation. History of hypertension. History of diabetes mellitus. History of chronic renal failure, with Wednesday, Wednesday, and Wednesday hemodialysis. History of chronic anxiety. Lifelong non-smoker. History of hyperlipidemia. History of BPH. Plan: Plan dated June 21, 2024. The patient is seen in the emergency department. The patient was initially placed on BiPAP, but when we saw the patient, she was actually on room air. The patient could speak in full sentences. The patient follows with his primary care physician, who recently retired, cardiology, urology, nephrology, and pulmonary medicine. The patient is a lifelong non-smoker, and states he does not have a history of chronic lung disease. He does not use home oxygen. His procalcitonin level was 6.60, and his BNP was 84,500. He was placed on breathing treatments, and antibiotics. We will continue to follow. Prognosis is guarded. Labs, x-rays, and medications are all reviewed. Dictation was produced using [employer] software. Please excuse any grammatical, word or spelling errors. Plan dated June 22, 2024. The patient is seen today in room 371. Yesterday he was seen in the emergency department. He was admitted with a diagnosis of CHF, he was profoundly short of breath. Currently he is on 5 L nasal cannula. He is not receiving any IV fluids. The patient wore the BiPAP last night briefly at 12/6, and 40%. His blood cultures were positive for Streptococcus pneumoniae. He continues on Rocephin. Labs, x-rays, and all medications are reviewed. We will continue to follow the patient and make recommendations where appropriate. Prognosis is guarded. Dictation was produced using [employer]code software. Please excuse any grammatical, word or spelling errors. Plan dated June 23, 2024. The patient is seen today in room 371. The patient is resting comfortably in bed. He is laying flat in bed. He is on 2 L of oxygen. No IV fluids. He jennifer arently is scheduled for colonoscopy today. He continues on Rocephin for Streptococcus pneumonia bacteremia. His procalcitonin level was elevated. Labs, x-rays, and all medications are reviewed. Overall, he is doing better. His respiratory status is improved. He states that his breathing is better, and he is less short of breath. We will continue to follow. Prognosis is guarded. Dictation was produced using AV[employer]code software. Please excuse any grammatical, word or spelling errors. Plan dated June 24, 2024. The patient is seen today in room 371. He continues on nasal O2 at 2 L. The patient is not receiving any IV fluids. He continues on Rocephin for Streptococcus pneumonia bacteremia. Labs, x-rays, and medications are reviewed. We will continue to follow. Prognosis is guarded. Dictation was produced using [employer]code software. Please excuse any grammatical, word or spelling errors. Plan dated June 25, 2024. The patient is seen today in room 371. He is resting comfortably in bed. He is prepping for colonoscopy in the morning. The patient's is currently in the hospital and he is worried about her. He continues on nasal O2 at 2 L. Saturations were in the mid 90s. Labs, x-rays, and medications are reviewed. We will continue to follow make recommendations along the way. He is being treated for Streptococcus pneumoniae bacteremia, with the Rocephin. Overall, his situation has improved over the last few days or so. Dictation was produced using AV[employer]code software. Please excuse any grammatical, word or spelling errors. Time with Patient: Less than 30
--- NOTE | 2024-06-25 13:00 | P.PN ---
Subjective Progress Note Date: 06/25/24 Patient is seen in follow-up for chronic kidney disease. Renal function stable. Has been voiding. no new issues. plan for EGD and colonoscopy tomorrow Vital signs are stable. General: No acute distress. HEENT: Head exam is unremarkable. LUNGS: No audible rhonchi or wheezes. HEART: Rate and Rhythm are regular. ABDOMEN: Nontender. EXTREMITITES: Trace edema. Objective - Vital Signs Vital signs: Vital Signs Temp 98.3 F 06/25/24 08:10 Pulse 96 06/25/24 11:59 Resp 20 06/25/24 11:45 BP 130/68 06/25/24 11:45 Pulse Ox 97 06/25/24 11:45 FiO2 40 06/21/24 13:35 Intake & Output 06/24/24 06/25/24 06/25/24 18:59 06:59 18:59 Intake Total 1160 1280 Balance 1160 1280 Weight 66.8 kg Intake: Intake, IV Titration 100 Amount Sodium Ferric Gluconat- 100 Sucrose 125 mg In Sodium Chloride 0.9% 100 ml @ 100 mls/hr IVPB DAILY [facility] Rx#:[id number] Oral 1060 1280 Other: # Voids 6 2 3 # Bowel Movements 6 2 3 - Labs CBC & Chem 7: 06/23/24 06:31 06/24/24 07:24 Labs: Abnormal Lab Results - Last 24 Hours (Table) 06/24/24 06/25/24 06/25/24 Range/Units 20:27 05:39 11:55 POC Glucose (mg/dL) 194 H 131 H 203 H (70-110) mg/dL Assessment and Plan Plan: Assessment: 1. Chronic kidney disease stage IV baseline creatinine 3-3.5 secondary to nephrosclerosis and diabetic kidney disease. Kidney biopsy in the past showed ATN superimposed on chronic injury with acute inflammation suggestive of polyn ephritis/reflux nephropathy. 2. Hypokalemia from diuresis and poor intake. Magnesium normal. Replaced. Improved. 3. Metabolic acidosis secondary to chronic kidney disease. On oral bicarb. 4. Acute hypoxic respiratory failure. 5. Pneumonia on antibiotics. Blood cultures positive for strep pneumo. 6. Anemia of chronic kidney disease. Iron deficiency noted. Receiving IV iron. Also on Aranesp. Having dark bowel movements. Surgery following. Endoscopy once medically stable. 7. Hypertension with chronic kidney disease. Stable. 8. Diabetes mellitus. 9. Lower extremity edema. Better with diuresis. Plan: Encouraged oral intake. Maintain torsemide. Maintain IV iron. Wean FiO2. Avoid nephrotoxins. Continue to monitor renal function and urine output.
--- NOTE | 2024-06-25 13:16 | P.PN ---
Subjective Progress Note Date: 06/25/24 Principal diagnosis: Reason for follow up with Streptococcus pneumoniae bacteremia and pneumonia Patient is a 78-year-old male with a past medical history significant for Atrial Fibrillation, Coronary Artery Disease (CAD), Diabetes Mellitus, Dialysis, Hypertension, Prostate Disorder, Renal Disease, presenting to the hospital for evaluation of increasing shortness of breath and weakness, patient presenting with left lower lobe pneumonia positive blood culture with strep pneumo prompting this consultation. On today's evaluation that is 06/25/2024, Patient is afebrile patient is currently on room air and denies having any shortness of breath, the patient denies any chest pain did have a cough and bring up some purulent sputum, the patient denies any nausea vomiting did not have any abdominal pain and has been complaining about drinking the bowel prep with associated diarrhea. No new lab has been obtained today Objective - Vital Signs Vital signs: Vital Signs Temp 98.3 F 06/25/24 08:10 Pulse 96 06/25/24 11:59 Resp 20 06/25/24 11:45 BP 130/68 06/25/24 11:45 Pulse Ox 97 06/25/24 11:45 FiO2 40 06/21/24 13:35 Intake & Output 06/24/24 06/25/24 06/25/24 18:59 06:59 18:59 Intake Total 1160 1280 Balance 1160 1280 Weight 66.8 kg Intake: Intake, IV Titration 100 Amount Sodium Ferric Gluconat- 100 Sucrose 125 mg In Sodium Chloride 0.9% 100 ml @ 100 mls/hr IVPB DAILY [facility] Rx#:[id number] Oral 1060 1280 Other: # Voids 6 2 3 # Bowel Movements 6 2 3 - Exam GENERAL DESCRIPTION: An elderly male lying in bed in no distress RESPIRATORY SYSTEM: Unlabored breathing , decreased breath sounds at bases HEART: S1 S2 regular rate and rhythm , ABDOMEN: Soft , no tenderness EXTREMITIES: No edema feet - Labs CBC & Chem 7: 06/23/24 06:31 06/24/24 07:24 Labs: Abnormal Lab Results - Last 24 Hours (Table) 06/24/24 06/25/24 06/25/24 Range/Units 20:27 05:39 11:55 POC Glucose (mg/dL) 194 H 131 H 203 H (70-110) mg/dL Assessment and Plan (1) Bacteremia Current Visit: Yes Status: Acute Code(s): R78.81 - BACTEREMIA SNOMED Code(s): 7304701 (2) Pneumonia Current Visit: Yes Status: Acute Code(s): J18.9 - PNEUMONIA, UNSPECIFIED ORGANISM SNOMED Code(s): 176500033 (3) Sepsis Current Visit: Yes Status: Acute Code(s): A41.9 - SEPSIS, UNSPECIFIED ORGANISM SNOMED Code(s): 75322777 Plan: 1patient presented to hospital with sepsis in this patient who did have a elevated white count tachycardia meeting currently for SIRS source of the left lower lobe pneumonia likely community-acquired. 2patient with a Streptococcus pneumoniae bacteremia source is left lower lobe pneumonia. 3patient with a renal insufficiency high risk of nephrotoxicity from certain antibiotics. 4patient blood culture have been finalized with strep pneumo that is sensitive to ceftriaxone 5patient currently being treated with Rocephin while inpatient and hopefully will transition to oral antibiotic on discharge Dictation was produced using [employer] dictation software. please excuse any grammatical, word or spelling errors. Time with Patient: Less than 30
[2024-06-25 16:29] LABS: Glucose,Whole Blood 176 mg/dL (70-110)
[2024-06-25 20:29] LABS: Glucose,Whole Blood 175 mg/dL (70-110)
[2024-06-26 06:16] LABS: Glucose,Whole Blood 139 mg/dL (70-110)
[2024-06-26] MEDS: IV FLUID CONTINUATION 900 ML IV ONE (10:52)
[2024-06-26] MEDS ORDERED: PROPOFOL 10 MG/ML 20 ML VIAL IV ONE (10:52)
--- NOTE | 2024-06-26 11:06 | P.PCN ---
Date of Procedure: 06/26/24 Description of Procedure: PREOPERATIVE DIAGNOSIS: Anemia Positive stool occult blood Anticoagulant use POSTOPERATIVE DIAGNOSIS: Diaphragmatic hiatal hernia OPERATION: Esophagogastroduodenoscopy SURGEON: Aubree Mercado MD ANESTHESIA: MAC. INDICATIONS: The patient is a 78-year-old female who presents with gastrointestinal bleeding and anemia. Benefits and risks of the procedure were described. Informed consent was obtained. DESCRIPTION: The patient was brought into the endoscopy suite and laid in the left lateral decubitus position. An Olympus gastroscope was passed along the posterior oropharynx down to the distal esophagus where the squamocolumnar junction was encountered at 35 cm from the incisors. The stomach was entered and no bile reflux was found. Additional findings are listed below. The first through third portion of the duodenum was examined and unremarkable. Retroflexion of the scope confirmed Hill grade 2 lower esophageal valve. The squamocolumnar junction demonstrated LA grade B erosive esophagitis. The stomach was desufflated. The patient tolerated the procedure well. FINDINGS: Squamocolumnar junction 35 cm from the incisors. Diaphragmatic hiatus at 40 cm. Hiatal hernia, 5 cm, sliding-type Hill grade 3 lower esophageal valve. LA grade B erosive esophagitis. No active duodenitis. No stigmata of bleeding RECOMMENDATIONS: 1. Upper endoscopy as needed
--- NOTE | 2024-06-26 11:20 | P.PCN ---
Date of Procedure: 06/26/24 Description of Procedure: PREOPERATIVE DIAGNOSIS: Anemia Gastrointestinal bleeding POSTOPERATIVE DIAGNOSIS: Tubular adenoma ascending colon Tubular adenoma transverse colon Tubular adenoma descending colon Sigmoid diverticulosis Internal hemorrhoids, grade 2 Enlarged prostate OPERATION: Colonoscopy to the ileocecal valve and appendiceal orifice, cecum Colonoscopy with hot snare polypectomy SURGEON: Aubree Mercado MD. ANESTHESIA: MAC. INDICATIONS: The patient is an 78-year-old male who presented with congestive heart failure, worsening anemia and positive Hemoccult. Hemoglobin less than 8.0. Lower endoscopy was offered for anemia assessment. Benefits and risks were described and informed consent was obtained. DESCRIPTION OF PROCEDURE: The patient had undergone Nulytely prep, lactulose, milk of magnesia. The patient had been brought into the operating room and laid in the left lateral decubitus position. After adequate intravenous sedation, the rectum was examined with 2% lidocaine jelly. The prostate was markedly enlarged over 3 to 4 cm. No external hemorrhoids were encountered. The rectal tone was within normal limits. No lesions were palpated in the rectal vault. An Olympus colonoscope was advanced until the cecum, ileocecal valve and appendiceal orifice were clearly viewed. The prep was good. Sigmoid diverticulosis was encountered. Colonic polyps were found and removed. No evidence of focal colitis was found. Retroflexion of the scope demonstrated grade 2 internal hemorrhoids without active bleeding or inflammation. The colon was desufflated. The patient had tolerated the procedure well. Withdrawal time was over 6 minutes. FINDINGS: Aronchick preparation quality scale 2 (1-5) Internal hemorrhoids, grade 2 No external hemorrhoids No arteriovenous malformations. Sigmoid diverticulosis Removal of 3 polyps: - Snare polypectomy descending colon, 5 mm tubulovillous adenoma - Snare polypectomy transverse colon, 8 mm flat villous adenoma - Snare polypectomy ascending colon, 6 mm flat villous adenoma No focal colitis. RECOMMENDATIONS: 1. May start heart healthy diet 2. Repeat colonoscopy 3 years, 2027, low volume prep Plan - Discharge Summary Discharge Rx Participant: No New Discharge Prescriptions: No Action Tamsulosin HCl [Flomax] 0.4 mg PO BID Nitroglycerin Sl Tabs [Nitrostat] 0.4 mg SL Q5M PRN PRN Reason: Chest Pain amLODIPine [Norvasc] 5 mg PO QAM glyBURIDE [Diabeta] 2.5 mg PO Q3D Torsemide [Demadex] 20 mg PO BID Azelastine HCl [Astelin Nasal [place]] 1 spray EA NOSTRIL BID Sodium Bicarbonate Tab 650 mg PO HS Apixaban [Eliquis] 2.5 mg PO BID Mv-Min/Folic/K1/Lycopen/Lutein [Centrum Silver Men Tablet] 1 tab PO DAILY Metoprolol Tartrate [Lopressor] 25 mg PO BID Aspirin EC [Ecotrin Low Dose] 81 mg PO QAM Pravastatin Sodium [Pravachol] 40 mg PO HS Budesonide/Formoterol Fumarate [Symbicort 160-4.5 Mcg Inhaler] 2 puff INHALATION RT-BID Docusate [Colace] 100 mg PO HS Losartan [Cozaar] 25 mg PO DAILY Discharge Medication List Aspirin EC [Ecotrin Low Dose] 81 mg PO QAM 02/11/22 [History] Metoprolol Tartrate [Lopressor] 25 mg PO BID 02/11/22 [History] Nitroglycerin Sl Tabs [Nitrostat] 0.4 mg SL Q5M PRN 02/11/22 [History] Pravastatin Sodium [Pravachol] 40 mg PO HS 02/11/22 [History] Tamsulosin HCl [Flomax] 0.4 mg PO BID 02/11/22 [History] amLODIPine [Norvasc] 5 mg PO QAM 03/18/22 [History] Budesonide/Formoterol Fumarate [Symbicort 160-4.5 Mcg Inhaler] 2 puff INHALATION RT-BID 06/05/22 [History] Torsemide [Demadex] 20 mg PO BID 11/02/22 [History] glyBURIDE [Diabeta] 2.5 mg PO Q3D 11/02/22 [History] Apixaban [Eliquis] 2.5 mg PO BID 06/21/24 [History] Azelastine HCl [Astelin Nasal [place]] 1 spray EA NOSTRIL BID 06/21/24 [History] Docusate [Colace] 100 mg PO HS 06/21/24 [History] Losartan [Cozaar] 25 mg PO DAILY 06/21/24 [History] Mv-Min/Folic/K1/Lycopen/Lutein [Centrum Silver Men Tablet] 1 tab PO DAILY 06/21/24 [History] Sodium Bicarbonate Tab 650 mg PO HS 06/21/24 [History] Follow up Appointment(s)/Referral(s): Erasmo Downs MD [Primary Care Provider] - 1-2 days Discharge/Stand Alone Forms: AA Roberta Tinajero, Who Do I Call?, Community Resources, Outpatient Counseling, In Substance Abuse Facilities
[2024-06-26 11:37] LABS: Glucose,Whole Blood 136 mg/dL (70-110)
[2024-06-26 12:22] LABS: African American GFR (CKD) 25 (>60 ml/min/1.73 sqM); Anion Gap 9 mmol/L; Blood Urea Nitrogen 39 mg/dL (9-20); Calcium 8.1 mg/dL (8.4-10.2); Carbon Dioxide 22 mmol/L (22-30); Chloride 109 mmol/L (98-107); Glucose 127 mg/dL (74-99); Non-African American GFR(CKD) 21 (>60 ml/min/1.73 sqM); Potassium 3.7 mmol/L (3.5-5.1); Sodium 140 mmol/L (137-145)
[2024-06-26] MEDS: LACTATED RINGERS 1,000 ML IV SCH (12:30)
[2024-06-26] MEDS: ENOXAPARIN 40 MG/0.4 ML SYRINGE SQ SCH (15:44)
--- NOTE | 2024-06-26 16:17 | P.PN ---
Subjective Progress Note Date: 06/26/24 78-year-old male who follows with a family doctor in [place], who recently retired, as well as Dr. Cortés in cardiology, my partner, and Dr. Rodriguez in nephrology. The patient presented to the emergency department, at about 10:00 PM, on June 20. He came in with shortness of breath. He was brought in by EMS. The patient states that he could only walk just a few feet before coming short of breath. It had been going on for a couple of days, and maybe a bit longer. He got progressively worse, so the patient came in to be evaluated. He is seen in the emergency department, room 22. The patient was initially on BiPAP, settings of 12/6, and 40%. When we saw him in the emergency department, he was just getting off the bedside commode, and was not wearing any oxygen whatsoever. The patient has no history of tobacco use, and he does not use home oxygen. I asked him what he sees my partner for, and he says that he is short of breath, primarily from heart disease. He did have an elevated procalcitonin level of 6.60. His BNP was quite high at 84,500. He was placed on azithromycin and Rocephin. Current laboratory data includes a white count 13, hemoglobin 8.3, hematocrit 25.8, and a platelet count of 144,000. Sodium 135, potassium 3, chlorides 103, CO2 17, anion gap 15, BUN 70, creatinine 3.03. Glucose is 199. Troponin was 0.104. ALT was 50. Viral screen was negative. Chest x-ray in my opinion, showed diffuse bilateral infiltrates, with a predominance in the left lower lobe. In addition to azithromycin and Rocephin, the patient was given Symbicort, updrafts with DuoNeb, and Lasix. Progress note dated June 22, 2024. 78-year-old male who was seen in consultation yesterday. We saw him in the emergency department yesterday. Today, we see him in room 371. He is feeling a bit better. He is currently on 5 L nasal cannula. He did use the BiPAP briefly last night, with settings of 12/6, and 40%. He is not receiving any IV fluids at this time. Current laboratory data includes a white count 5.4, hemoglobin 7.6, hematocrit 25.6, and a platelet count of 129,000. Sodium 139, potassium 2.9, chlorides 108, CO2 20, BUN 80, and creatinine 3.33. Glucose is 121. Ca lcium 8.5. Magnesium 2.2. Blood cultures are apparently positive for Streptococcus pneumoniae. The patient is currently on Rocephin, Symbicort, Lasix, and updrafts. Progress note dated June 23, 2024. 78-year-old male seen today in room 371. He was seen in consultation 2 days ago. He is resting comfortably in bed. He is awake and alert. He is on 2 L nasal cannula. No IV fluids. He apparently scheduled to have a colonoscopy today. He continues on Rocephin. Blood cultures were positive for Streptococcus pneumoniae. Procalcitonin level was elevated. Current laboratory data includes a white count 5.2, hemoglobin 7.7, hematocrit 25.2, and a platelet count of 130,000. Sodium 139, potassium 3.9, chlorides 109, CO2 18, anion gap 12, BUN 74, creatinine 3.13. Glucose is 137. Calcium 8.4, magnesium 2.1. Progress note dated June 24, 2024. 78-year-old male seen today in room 371. The patient states that he is finally feeling a bit better. He continues on oxygen, by nasal cannula 2 L. Is not receiving any IV fluids. He does continue on Rocephin for blood culture positive for Streptococcus pneumoniae. The patient denies any worsening or more severe shortness of breath, cough, wheezing, chest tightness, or phlegm production. Current laboratory data includes a sodium 138, potassium 4, chlorides 107, CO2 19, anion gap 12, BUN 64, and creatinine 2.93. Glucose is 168, calcium 8.7, and magnesium 2.1. Progress note dated June 25, 2024. 78-year-old male seen in room 371. The patient seems to be doing better. He is on 2 L of oxygen. Saturations are 94 to 95%. The patient is currently receiving a prep, for a colonoscopy in the morning. The patient is not having any respiratory issues at this time. His white count is 19.1, hemoglobin 10.8, macro 35.9, and platelet count was normal. Sodium 135, potassium 4.8, chlorides 102, CO2 26, BUN 37, creatinine 1.40. Glucose is 129. Calcium is 8.2. No chest x-ray today. On 06/26/2024, the patient is being seen for a follow-up. He is feeling slightly improved compared to yesterday. The patient underwent an EGD today and the patient was found to have diaphragmatic hiatus at 40 cm, hiatal hernia 5 cm sliding-type and grade B erosive esophagitis. No duodenitis. No evidence of any acute bleeding. The patient is currently on room air oxygen with a pulse ox of 94%. He is being treated for a left lower lobe pneumococcal pneumonia with positive bacteremia. The patient was being treated with IV Rocephin. ID is on the case. Hemodynamically stable. Renal function has improved during this current admission creatinine is currently down to 2.7 as the patient has chronic stage IV kidney disease. Sodium is at 140, potassium is at 3.7. The white cell count is 5.2 with a hemoglobin of 7.7. The chest x-ray at time of admission showed a left lower lobe consolidation. Since then, the patient has not had any follow-up chest x-ray imaging. Nevertheless, no significant cough sputum production. No hemoptysis or pleurisy. No altered mentation. He is chronically debilitated and remains quite weak. The patient is currently off Eliquis. Hemoglobin is being monitored. Objective - Vital Signs Vital signs: Vital Signs Temp 98.1 F 06/26/24 08:15 Pulse 84 06/26/24 08:24 Resp 18 06/26/24 08:15 BP 124/66 06/26/24 08:15 Pulse Ox 100 06/26/24 08:15 FiO2 40 06/21/24 13:35 Intake & Output 06/25/24 06/26/24 06/26/24 18:59 06:59 18:59 Intake Total 2380 20 500 Balance 2380 20 500 Weight 69.6 kg Intake: IV 20 500 Invasive Line 3 20 Oral 2380 Other: Voiding Method Toilet # Voids 3 1 # Bowel Movements 3 3 - Exam No acute distress, oriented 3. Is able to speak in full sentences. No audible wheezing. Cough is dry. The patient is currently on room air oxygen with a pulse ox of 94% HEENT examination is grossly unremarkable. Mucous membranes are moist. No oral lesions. Neck supple. Full range of motion. No adenopathy thyromegaly or neck vein distention. Cardiovascular examination reveals regular rhythm rate. S1-S2 normal. No S3 or S4. No discernible murmur noted. Heart sounds are distant. Lungs reveal scattered bilateral rhonchi and crackles. Breath sounds equal. No distinct wheezes noted. Abdomen soft bowel sounds are heard. No masses or tenderness. Extremities are intact. No cyanosis clubbing or edema. Skin is without rash or lesion. Neurologic examination is brief but nonfocal. - Labs CBC & Chem 7: 06/23/24 06:31 06/26/24 11:28 Labs: Abnormal Lab Results - Last 24 Hours (Table) 06/25/24 06/25/24 06/26/24 Range/Units 16:29 20:20 06:04 Chloride (98-107) mmol/L BUN (9-20) mg/dL Creatinine (0.66-1.25) mg/dL Glucose (74-99) mg/dL POC Glucose (mg/dL) 176 H 175 H 139 H (70-110) mg/dL Calcium (8.4-10.2) mg/dL 06/26/24 06/26/24 Range/Units 11:28 11:36 Chloride 109 H (98-107) mmol/L BUN 39 H (9-20) mg/dL Creatinine 2.71 H (0.66-1.25) mg/dL Glucose 127 H (74-99) mg/dL POC Glucose (mg/dL) 136 H (70-110) mg/dL Calcium 8.1 L (8.4-10.2) mg/dL Assessment and Plan Plan: Acute hypoxemic respiratory failure, essentially secondary to a left lower lobe pneumococcal pneumonia, currently on room air oxygen. Clinically improved and the patient oxygenation is also improved Acute on chronic shortness of breath, improving Streptococcus pneumoniae bacteremia of the left lower lobe, currently on IV Rocephin, ID is on the case. The patient was bacteremic secondary to left lower lobe pneumonia. History of coronary artery disease, status post CABG. History of chronic atrial fibrillation, controlled rate, currently off anticoagulation History of hypertension. History of diabetes mellitus Chronic stage IV kidney disease, renal function is improving and nephrology is on the case History of chronic anxiety. Hyperlipidemia. History of BPH Anemia of chronic disease related to chronic kidney failure COPD, mild in severity, maintained on Symbicort on outpatient basis Paroxysmal atrial fibrillation, maintained on anticoagulation with Eliquis on outpatient basis Chronic systolic heart failure with an EF of around 25 to 30% Moderate to severe mitral regurgitation and aortic valve regurgitation Plan Continue IV Rocephin ID is on the case and will need a follow-up chest x-ray within next 24 to 48 hours Oxygenation is improved and the patient is currently on room air oxygen The patient has developed an acute on top of chronic anemia. EGD was completed and patient has erosive esophagitis with a hiatal hernia. No evidence of any acute bleeding Renal function continues to improve Patient currently on room air oxygen Continue torsemide Anticoagulation is currently on hold and the patient is on Lovenox for DVT prophylaxis Patient was started on Aranesp Amlodipine for blood pressure control Continue Pravachol continue Flomax IV Protonix Will follow Time with Patient: Greater than 30
[2024-06-26 16:55] LABS: Glucose,Whole Blood 224 mg/dL (70-110)
--- NOTE | 2024-06-26 18:13 | P.PN ---
Progress Note - Text Progress Note Date: 06/26/24 This is a pleasant 78 years old male with past medical history of multiple medical problems as below Presents because of fever and dyspnea and cough and chest pain x 2 weeks. 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 Hobson. However patient kept to get worse. He decided to come to the hospital Currently he is on BiPAP he is coughing through the BiPAP he states he has clear phlegm and also he is breathing fast more than 25 breaths/min. He denies chest pain currently. No abdominal pain or vomiting but reports he has diarrhea, he has 1 loose bowel movement yesterday and he had 1 loose and black bowel movement this morning. No urinary complaint he has dizziness but no headache weakness or numbness No history of smoking. However daily drinking of alcohol is reported, marijuana abuse is also recorded He is currently tachypneic, he had low-grade temperature 99.5. On admission he was saturating 91 on room air but currently BiPAP He has mild leukocytosis of 13,000, hemoglobin dropped to 8.3 with baseline about 10-11. Platelet count 144. Creatinine 3.0 with baseline 3-6. proBNP is elevated at 4500. Chest x-ray showing left lower lobe infiltrate suspicious for pneumonia EKG showing sinus rhythm at [address]-T changes. Patient started on ceftriaxone and Zithromax also he is on aspirin 81 mg. Last echocardiogram from 02/19/2024: Showed ejection fraction of 45 to 50% 06/22 Patient states his breathing is slightly better, he still on 5 L oxygen via na sabino cannula He is afebrile with no chest pain or abdominal pain He still has black stool and occult blood was positive, hemoglobin dropped to 7.6. Suspicion of GI bleed is high therefore consulting surgery team as there is no GI in this facility during this week He is already on IV Protonix twice daily. We are going to hold his aspirin 81 mg. If his hemoglobin drops less than 7 okay for monitoring of blood transfusion He is on Rocephin and Zithromax. Procalcitonin is elevated. Anemia workup is requested He denies history of alcohol although it was documented in the chart therefore we will discontinue CIWA protocol. 06/23 Patient slightly better breathing today he still tachypneic with breathing rate about 26 but has good oxygen saturation. No chest pain no abdominal pain He has dark brownish stool but not black. Hemoglobin stable today at 7.7. He got IV iron yesterday. aspirin remains on hold, he is on IV Protonix twice daily, Remains on antibiotic ceftriaxone and Zithromax. Blood culture positive for Streptococcus pneumonia Creatinine slightly worse today at 3.3. 06/24 Patient still feels very weak overall he is better than he came in, he is sitting at the side of the chair She he still quite tachypneic and short of breath he still has coarse crepitation with inspiration His creatinine slightly coming down to 0.9 Hemoglobin 7.7 with no more episodes of bloody stool. Aspirin remains on hold for now he is still getting IV Protonix He still on ceftriaxone with positive blood culture 06/25 Patient still feels short of breath, no chest pain. He still has scattered wheezing and coarse crepitation He is saturating low 90s on 2 L oxygen via nasal cannula He is advanced stage kidney disease but not on dialysis, has good urine output on torsemide Plan for EGD/colonoscopy tomorrow. From medical perspective he is at accelerated risk from the procedure due to his heart and kidney problem and heart failure but there is no absolute contraindication June 26: Underwent EGD colonoscopy by Dr. Mercado. Polyps were removed. Otherwise unremarkable. Ate well. Has a slight cough. No sputum. Overall feeling better. Pulse ox was checked it was 94% room air. Patient blood cultures positive for Streptococcus pneumoniae on June 20. Patient had been getting IV ceftriaxone. I do not see it in the [facility]. Will resume same. Increase activity. EGD: Erosive esophagitis. No stigmata of bleeding. Getting IV Ferrlecit. Resume Eliquis Active Medications Albuterol/Ipratropium (Ipratropium-Albuterol 3 Ml Neb) 3 ml INHALATION RT-QID [facility] Last Admin: 06/26/24 15:59 Dose: 3 ml Amlodipine Besylate (Amlodipine 5 Mg Tab) 5 mg PO QAM [facility] Last Admin: 06/26/24 09:06 Dose: 5 mg Budesonide/Formoterol Fumarate (Symbicort 160-4.5 Mcg Inhaler) 1 puff INHALATION RT-BID [facility] Last Admin: 06/26/24 08:08 Dose: 1 puff Darbepoetin Louis (Darbepoetin Louis 40 Mcg/0.4 Ml Syringe) 40 mcg SQ Q7D [facility] Last Admin: 06/22/24 11:32 Dose: 40 mcg Enoxaparin Sodium (Enoxaparin 40 Mg/0.4 Ml Syringe) 40 mg SQ DAILY [facility] Last Admin: 06/26/24 15:44 Dose: 40 mg Glipizide (Glipizide 5 Mg Tab) 2.5 mg PO Q72H [facility] Last Admin: 06/24/24 09:38 Dose: 2.5 mg Lactated Ringer's (Lactated Ringers) 1,000 mls @ 20 mls/hr IV .Q24H [facility] Last Admin: 06/26/24 12:30 Dose: Not Given Ferric Sodium Gluconate 125 mg (/ Sodium Chloride) 110 mls @ 100 mls/hr IVPB DAILY [facility] Stop: 06/28/24 17:29 Ceftriaxone Sodium 2 gm/ (Sodium Chloride) 50 mls @ 100 mls/hr IVPB Q24HR [facility]; Protocol Lactulose (Lactulose 20 Gm/30 Ml Cup) 30 gm PO BID [facility] Last Admin: 06/26/24 09:05 Dose: Not Given Magnesium Hydroxide (Magnesium Hydroxide 2,400 Mg/30 Ml Cup) 2,400 mg PO BID [facility] Last Admin: 06/26/24 09:05 Dose: Not Given Meclizine HCl (Meclizine 25 Mg Tab) 25 mg PO BID [facility] Last Admin: 06/26/24 09:06 Dose: 25 mg Metoprolol Tartrate (Metoprolol Tartrate 25 Mg Tab) 25 mg PO BID [facility] Last Admin: 06/26/24 09:06 Dose: 25 mg Miscellaneous Information (Pneumonia Protocol Utilized 1 Each Misc) 1 each PO ONCE PRN PRN Reason: Per Protocol Miscellaneous Information (Potassium Replacement Protocol 1 Each Misc) 1 each MISCELLANE DAILY PRN; Protocol PRN Reason: Per Protocol Pantoprazole Sodium (Pantoprazole 40 Mg/10 Ml Vial) 40 mg IVP BID [facility] Last Admin: 06/26/24 09:05 Dose: 40 mg Pravastatin Sodium (Pravastatin Sodium 40 Mg Tab) 40 mg PO HS [facility] Last Admin: 06/25/24 20:44 Dose: 40 mg Sodium Bicarbonate (Sodium Bicarbonate Tab 650 Mg Tab) 650 mg PO BID [facility] Last Admin: 06/26/24 09:06 Dose: 650 mg Tamsulosin HCl (Tamsulosin 0.4 Mg Cap.Er.24h) 0.4 mg PO BID [facility] Last Admin: 06/26/24 09:06 Dose: 0.4 mg Torsemide (Torsemide 20 Mg Tab) 20 mg PO DAILY [facility] Last Admin: 06/26/24 09:06 Dose: 20 mg On examination: VITAL SIGNS: [98.4, 77, 18, 120 x 56, 94% room] GENERAL APPEARANCE: BMI 24.8, laying in bed a bit tired HEENT: Normal external appearance of nose and ear. Oral cavity normal EYES: Pupils equal. Conjunctiva normal. NECK: JVD not raised. Mass not palpable. RESPIRATORY: Respiratory effort normal. Lungs decreased breath sound CARDIOVASCULAR: First and second sounds normal. No edema. ABDOMEN: Soft. Liver and spleen not palpable. No tenderness. No mass palpable. PSYCHIATRY: Alert and oriented x3. Mood and affect normal. INVESTIGATIONS, reviewed in the clinical context: June 26: Sodium 140 potassium 3.7 BUN 39 creatinine 2.71 June 20: Creatinine 3.03 Assessment plan: -Left lower lobe pneumonia, suspect gram-negative organism IV ceftriaxone -Acute CHF exacerbation, which is suspected both systolic and diastolic dysfunction with slightly lowered ejection fraction, EF 45 to 50% per cardiology notes Received Lasix -Acute hypoxic respiratory failure secondary to above, improving Initially required BiPAP. Now down to room air -Acute GI bleed is suspected with iron deficiency anemia. Normocytic anemia, chronic with recent worsening and black stool. EGD colonoscopy showing some esophagitis. Otherwise unremarkable. No stigmata of bleeding. Some polyps removed -Bacteremia with positive blood culture for Streptococcus pneumoniae: Improving -Chronic kidney disease stage IV secondary to diabetic nephropathy Nephrology following. -Diabetes mellitus, type II on oral hypoglycemic Follow Accu-Cheks -Essential hypertension Amlodipine 5 mg a day. Lopressor 25 mg twice daily -Metabolic acidosis secondary to chronic kidney disease. On oral sodium bicarbonate -Hyperlipidemia Pravachol -Persistent atrial fibrillation, rate controlled Lopressor 25 twice daily. Eliquis to be resumed -Chronic fibromyalgia -Chronic low back pain and degenerative disc disease of the lumbar spine. -Full code Discussed with the patient. Increase activity. Resume Eliquis.
[2024-06-26] MEDS: SODIUM FERRIC GLUCONAT-SUCROSE 125 MG in SODIUM CHLORIDE 0.9% 100 ML IVPB SCH (18:27)
--- NOTE | 2024-06-26 19:18 | CDI ---
Date: 06/26/2024 From: Melly Stoll1 Email: [email or web address] Admit Date: 06/21/2024 01:05:00 AM Patient Name: Andrea Mensah Visit Number: [id number] Discharge Date: N/A ATTENTION: The Clinical Documentation Specialists (CDI) and [facility] Coding Staff appreciate your assistance in clarifying documentation. Please respond to the clarification below the line at the bottom and electronically sign. The CDI & [facility] Coding staff will review the response and follow-up if needed. Please note: Queries are made part of the Legal Health Record. If you have any questions, please contact the author of this message via ITS. Dr. Mary Barr, Sepsis is documented in your Consultation Note on 06/22/2024 - which may lack sufficient clinical evidence/support in the medical record. Additional clarification is requested. History/Risk Factors: 78-year-old male presented to [facility] ED for evaluation due to progressive shortness of breath and weakness. PMH: Type 2 diabetes mellitus, stage 4 chronic kidney disease, permanent atrial fibrillation, hypertension, chronic combined systolic and diastolic heart failure, coronary artery disease Clinical Indicators: v Documentation Location: Electronic Medical Record Vital Sign Trend: Date Time Temperature HR RR BP SpO2 06/21/2024 01:14 98.7 F (Oral) 61 23 130/79 96% on BiPAP 06/21/2024 13:35 97.1 F (Axillary) 77 --> 112 17 --> 26 136/80 100% BiPAP --> 100% on 5L NC --> 6L NC 06/21/2024 20:00 97.7 F (Oral) 74 18 178/73 98% on 5L NC 06/22/2024 08:00 98.2 F (Oral) 67 17 138/103 99% on 5L NC 06/23/2024 08:11 98.3 F (Oral) 88 26 140/70 96% on 3L NC 06/24/2024 09:35 98.0 F (Oral) 86 22 121/50 98% on 2L NC 06/25/2024 08:10 98.3 F (Oral) 86 20 120/61 94% on 2L NC 06/26/2024 08:15 98.1 F (Oral) 89 18 124/66 100% on Room Air Lab Results: 06/20/2024 06/22/2024 06/23/2024 WBC 13.0 5.9 5.2 Other Clinical Indicators: Blood Cultures (Collected on 06/20/2024): Streptococcus pneumoniae Infectious Disease Consultation Note (06/22/2024): o Patient presented to hospital with sepsis in this patient who did have an elevated white count, tachycardia, meeting currently for SIRS, source of the left lower lobe pneumonia o Bacteremia Treatment: Infectious Disease Consultation Rocephin 2g IVPB Every 24 Hours Azithromycin 500mg Oral x 1 After work up and study, please clarify which diagnosis is most appropriate? [ ] Sepsis has been ruled out. Streptococcus pneumoniae bacteremia was present on admission [ x ] Streptococcus pneumoniae bacteremia with sepsis is a valid diagnosis as evidenced by the following (please add rationale): wbc of 13K and HR greater than 90 documented on multiple occasion in the chart [ ] Other, please specify [ ] Unable to determine SIRS Criteria (2 or more of the following may indicate SIRS): Temperature < 96.8F (36C) or > 101.0F (38.3C) Heart Rate > 90 bpm Respiratory Rate > 20 breaths/min or PaCO2 < 32 mmHg White Blood Cell Count > 12,000 or < 4,000 cells/mm3 or > 10% bands MTDD
--- NOTE | 2024-06-26 19:38 | CDI ---
Date: 06/26/2024 From: Melly Stoll1 Email: [email or web address] Admit Date: 06/21/2024 01:05:00 AM Patient Name: Andrea Mensah Visit Number: [id number] Discharge Date: N/A ATTENTION: The Clinical Documentation Specialists (CDI) and [facility] Coding Staff appreciate your assistance in clarifying documentation. Please respond to the clarification below the line at the bottom and electronically sign. The CDI & [facility] Coding staff will review the response and follow-up if needed. Please note: Queries are made part of the Legal Health Record. If you have any questions, please contact the author of this message via ITS. Dr. Raj Walton, Conflicting documentation has been found in the medical record. As attending physician, please provide clarification. Surgery Progress Note (06/25/2024): End-stage renal disease Internal Medicine Progress Note (06/26/2024): Chronic kidney disease stage IV History/Risk Factors: 78-year-old male presented to [facility] ED for evaluation due to progressive shortness of breath and weakness. PMH: Type 2 diabetes mellitus, chronic kidney disease, permanent atrial fibrillation, hypertension, chronic combined systolic and diastolic heart failure, coronary artery disease Clinical Indicators: Nephrology Consult Note (06/21/2024): o Chronic kidney disease stage IV, baseline creatinine 3-3.5, secondary to nephrosclerosis and diabetic kidney disease Lab Trend this Admission: 06/20/2024 06/22/2024 06/23/2024 06/24/2024 06/26/2024 BUN 70 80 74 64 39 Creatinine 3.03 3.33 3.13 2.93 2.71 GFR 19 17 18 19 21 Treatment: Nephrology Consultation Pertinent Labs Monitored with Trend Please clarify which diagnosis is most appropriate: [ + ] Stage 4 chronic kidney disease [ ] End-stage renal disease as evidenced by: [ ] Other (please specify) [ ] Unable to determine Reference: [employer] Stage 1 eGFR = 90 and kidney damage for =3 months Stage 2 eGFR 60-89 and kidney damage for =3 months Stage 3a eGFR 45-59 and kidney damage for =3 months Stage 3b eGFR 30-44 and kidney damage for =3 months Stage 4 eGFR 15-29 r and kidney damage for =3 months Stage 5 eGFR <15 and kidney damage for =3 months MTDD
[2024-06-26 20:20] LABS: Glucose,Whole Blood 271 mg/dL (70-110)
[2024-06-26] MEDS: APIXABAN 2.5 MG TABLET PO SCH (20:31)
--- NOTE | 2024-06-26 22:50 | P.PN ---
Subjective Progress Note Date: 06/26/24 Principal diagnosis: Reason for follow up with Streptococcus pneumoniae bacteremia and pneumonia Patient is a 78-year-old male with a past medical history significant for Atrial Fibrillation, Coronary Artery Disease (CAD), Diabetes Mellitus, Dialysis, Hypertension, Prostate Disorder, Renal Disease, presenting to the hospital for evaluation of increasing shortness of breath and weakness, patient presenting with left lower lobe pneumonia positive blood culture with strep pneumo prompting this consultation. On today's evaluation that is 06/26/2024, patient has been afebrile, patient is breathing comfortably and is currently on room air, patient denies having any w orsening cough no chest pain, patient denies nausea vomiting or diarrhea and no abdominal pain. Patient creatinine 2.71 Objective - Vital Signs Vital signs: Vital Signs Temp 98.1 F 06/26/24 08:15 Pulse 84 06/26/24 12:56 Resp 18 06/26/24 08:15 BP 124/66 06/26/24 08:15 Pulse Ox 100 06/26/24 08:15 FiO2 40 06/21/24 13:35 Intake & Output 06/25/24 06/26/24 06/26/24 18:59 06:59 18:59 Intake Total 2380 20 500 Balance 2380 20 500 Weight 69.6 kg Intake: IV 20 500 Invasive Line 3 20 Oral 2380 Other: Voiding Method Toilet # Voids 3 1 # Bowel Movements 3 3 - Exam GENERAL DESCRIPTION: An elderly male lying in bed in no distress RESPIRATORY SYSTEM: Unlabored breathing , decreased breath sounds at bases HEART: S1 S2 regular rate and rhythm , ABDOMEN: Soft , no tenderness EXTREMITIES: No edema feet - Labs CBC & Chem 7: 06/23/24 06:31 06/26/24 11:28 Labs: Abnormal Lab Results - Last 24 Hours (Table) 06/25/24 06/25/24 06/26/24 Range/Units 16:29 20:20 06:04 Chloride (98-107) mmol/L BUN (9-20) mg/dL Creatinine (0.66-1.25) mg/dL Glucose (74-99) mg/dL POC Glucose (mg/dL) 176 H 175 H 139 H (70-110) mg/dL Calcium (8.4-10.2) mg/dL 03/31/25 03/31/25 Range/Units 11:28 11:36 Chloride 109 H (98-107) mmol/L BUN 39 H (9-20) mg/dL Creatinine 2.71 H (0.66-1.25) mg/dL Glucose 127 H (74-99) mg/dL POC Glucose (mg/dL) 136 H (70-110) mg/dL Calcium 8.1 L (8.4-10.2) mg/dL Assessment and Plan (1) Bacteremia Current Visit: Yes Status: Acute Code(s): R78.81 - BACTEREMIA SNOMED Code(s): 8373422 (2) Pneumonia Current Visit: Yes Status: Acute Code(s): J18.9 - PNEUMONIA, UNSPECIFIED ORGANISM SNOMED Code(s): 882223163 (3) Sepsis Current Visit: Yes Status: Acute Code(s): A41.9 - SEPSIS, UNSPECIFIED O RGANISM SNOMED Code(s): 44388218 Plan: 1patient presented to hospital with sepsis in this patient who did have a elevated white count tachycardia meeting currently for SIRS source of the left lower lobe pneumonia likely community-acquired. 2patient with a Streptococcus pneumoniae bacteremia source is left lower lobe pneumonia. 3patient with a renal insufficiency high risk of nephrotoxicity from certain antibiotics. 4patient blood culture have been finalized with strep pneumo that is sensitive to ceftriaxone 5patient to continue with Rocephin while inpatient and plan to finish therapy with oral Ceftin on discharge prescription sent to the pharmacy Dictation was produced using [email or web address] dictation software. please excuse any grammatical, word or spelling errors. Time with Patient: Less than 30
--- NOTE | 2024-06-26 22:51 | P.PN ---
Subjective Progress Note Date: 06/26/24 The patient is a pleasant 78-year-old gentleman who is known to our service from before with extensive cardiovascular history consistent of history of CAD status post CABG with unknown details at this point as well as cardiomyopathy with EF between 45 to 50% and history of heart failure and advanced chronic kidney disease as well as permanent atrial fibrillation and multiple comorbid conditions. He presented to the hospital with 3 to 4 days history of progressive exertional dyspnea associated with cough with no sputum production and no fever and no chills but congestions and also bilateral lower extremities edema. No change in the weight according to him. No symptoms of chest pain or chest discomfort or dizziness or lightheadedness or any feeling of heart racing or fluttering or presyncope or syncope. He underwent further evaluation including EKG showing atrial fibrillation with diffuse nonspecific ST and T wave abnormalities and also he underwent chest x-ray showed pneumonia. His creat inine is elevated and he is known to have chronic kidney disease. He is not on dialysis. He was seen by the nephrology service and he received 1 dose of IV Lasix and he was placed on oral diuretics. The physical examination is remarkable for irregular rhythm with a very distant heart sounds and heart to hear any cardiac murmurs because of extensive wheezing and extensive crackles bilaterally. Otherwise the physical examination is remarkable for severe bilateral lower extremities pitting edema June 22, 2024 The patient was seen and evaluated this morning. Overall he is feeling better. The shortness of breath is slightly better. No other cardiovascular symptoms including any chest pain. Hemodynamically he is stable with a hemoglobin has came down and for that reason and for the reason that he was tested positive for blood in the stool oral anticoagulation with Eliquis is on hold at this point. He is on oral diuretics. The physical examination is remarkable for bilateral expiratory wheezing and no edema was noted in the lower extremities. June 23, 2024 The patient was seen and evaluated this morning. He did have some nosebleed yesterday. Oral anticoagulation continues to be on hold for ruling out GI bleeding and he is in process of having an EGD. The physical examination is remarkable for irregular rhythm with bilateral expiratory wheezing and mild bilateral lower extremity edema. Currently he is on oral diuretics. June 24, 2024 The patient was seen and evaluated this morning. He stated that the shortness of breath is slightly better and no symptoms of chest pain. Hemodynamically he is stable with he is going to undergo an EGD this coming Wednesday. Oral anticoagulation is on hold. He is on oral diuretics as well. The physical examination is remarkable for irregular rhythm with improvement in the wheezing since yesterday and mild bilateral lower extremities edema. June 25, 2024 The patient was seen and evaluated this morning and his main complaint is being weak but his hemoglobin continues to be low around 7. He does have shortness of breath with exertion appears to be the same as before and bilateral lower extremity edema also appears to be the same as before no symptoms of chest pain or chest comfort. Hemodynamically he is stable. He is on oral diuretics. He is not on any oral anticoagulation. The plan is to pursue colonoscopy tomorrow and he is getting only prep for it. The physical examination is remarkable for irregular rhythm with a systolic murmur and bilateral rhonchi/wheezing and mild bilateral lower extremities edema 06/26/2024 Patient underwent upper GI endoscopy and colonoscopy. Upper GI endoscopy did not show any active bleeding. Colonoscopy showed diverticulosis and tubular adenomas. Will resume Eliquis Assessment Acute hypoxic respiratory failure Heart failure with HFrEF Permanent atrial fibrillation with controlled heart rate CAD status post CABG Advanced chronic kidney disease Anemia Plan Continue current medical regimen. Resume eliquis 2.5 mg BID, monitor Hb level Continue monitor the kidney function and electrolytes Continue monitor the hemoglobin as well Continue oral diuretics Use compression socks Follow-up with the patient after the EGD Objective - Vital Signs Vital signs: Vital Signs Temp 97.6 F 06/26/24 20:10 Pulse 79 06/26/24 21:03 Resp 18 06/26/24 21:03 BP 135/60 06/26/24 20:10 Pulse Ox 97 06/26/24 20:10 FiO2 40 06/21/24 13:35 Intake & Output 06/26/24 06/26/24 06/27/24 06:59 18:59 06:59 Intake Total 20 960 250 Balance 20 960 250 Weight 69.6 kg Intake: IV 20 500 10 Invasive Line 3 20 10 Intake, IV Titration 100 Amount Sodium Ferric Gluconat- 100 Sucrose 125 mg In Sodium Chloride 0.9% 100 ml @ 100 mls/hr IVPB DAILY [facility] Rx#:[id number] Oral 360 240 Other: Voiding Method Toilet Toilet Bedside Commode # Voids 1 # Bowel Movements 3 2 - Labs CBC & Chem 7: 06/23/24 06:31 06/26/24 11:28 Labs: Abnormal Lab Results - Last 24 Hours (Table) 06/26/24 06/26/24 06/26/24 Range/Units 06:04 11:28 11:36 Chloride 109 H (98-107) mmol/L BUN 39 H (9-20) mg/dL Creatinine 2.71 H (0.66-1.25) mg/dL Glucose 127 H (74-99) mg/dL POC Glucose (mg/dL) 139 H 136 H (70-110) mg/dL Calcium 8.1 L (8.4-10.2) mg/dL 06/26/24 06/26/24 Range/Units 16:53 20:16 Chloride (98-107) mmol/L BUN (9-20) mg/dL Creatinine (0.66-1.25) mg/dL Glucose (74-99) mg/dL POC Glucose (mg/dL) 224 H 271 H (70-110) mg/dL Calcium (8.4-10.2) mg/dL
[2024-06-27 06:06] LABS: Glucose,Whole Blood 223 mg/dL (70-110)
--- NOTE | 2024-06-27 07:07 | XR ---
EXAMINATION TYPE: XR chest 1V portable DATE OF EXAM: 06/27/2024 CLINICAL INDICATION: Male, 78 years old with history of Shortness of breath, progress study. TECHNIQUE: Single AP portable upright view of the chest is obtained. COMPARISON: Chest x-ray from June 20, 2024 FINDINGS: Overlying sternal wires and mediastinal clips are redemonstrated. Persistent cardiomegaly and mild central vascular congestion. No new focal airspace opacity, pleural effusion, or pneumothora x seen bilaterally. Osseous structures are intact. IMPRESSION: Correlate for CHF exacerbation/fluid overload state. [facility], , 06/27/2024 7:04 AM
[2024-06-27 08:46] LABS: African American GFR (CKD) 22 (>60 ml/min/1.73 sqM); Anion Gap 12 mmol/L; Blood Urea Nitrogen 36 mg/dL (9-20); Carbon Dioxide 21 mmol/L (22-30); Chloride 107 mmol/L (98-107); Glucose 215 mg/dL (74-99); Non-African American GFR(CKD) 19 (>60 ml/min/1.73 sqM); Sodium 140 mmol/L (137-145)
[2024-06-27 09:04] LABS: Anisocytosis Slight; HCT 29.5 % (39.0-53.0); HGB 8.6 gm/dL (13.0-17.5); Hypochromasia Marked; MCH 29.8 pg (25.0-35.0); Macrocytosis Moderate; Mean Platelet Volume 10.1; Platelet Count 233 k/uL (150-450); RBC 2.87 m/uL (4.30-5.90); RDW 16.9 % (11.5-15.5); WBC 8.3 k/uL (3.8-10.6)
[2024-06-27] MEDS: ZINC OXIDE PASTE (Z-GUARD) 1 APPLIC TOPICAL PRN (09:24)
[2024-06-27 11:16] LABS: Glucose,Whole Blood 154 mg/dL (70-110)
--- NOTE | 2024-06-27 12:07 | P.PN ---
Subjective Patient is seen for follow-up for chronic kidney disease. Status post colonoscopy and EGD yesterday with no active bleeding noted Renal function has been stable with serum creatinine staying around 3 mg/dL. Patient is complaining of increased swelling in his legs. Denies shortness of breath. Currently off of diuretics. Objective - Vital Signs Vital signs: Vital Signs Temp 98.2 F 06/27/24 08:15 Pulse 80 06/27/24 11:54 Resp 18 06/27/24 08:15 BP 142/66 06/27/24 08:15 Pulse Ox 97 06/27/24 08:15 FiO2 40 06/21/24 13:35 Intake & Output 06/26/24 06/27/24 06/27/24 18:59 06:59 18:59 Intake Total 960 260 280 Balance 960 260 280 Weight 71 kg Intake: IV 500 20 Invasive Line 3 20 Intake, IV Titration 100 100 Amount Sodium Ferric Gluconat- 100 100 Sucrose 125 mg In Sodium Chloride 0.9% 100 ml @ 100 mls/hr IVPB DAILY [facility] Rx#:[id number] Oral 360 240 180 Other: Voiding Method Toilet Bedside Commode # Voids 3 # Bowel Movements 2 3 3 - Exam Patient is awake, comfortable, no acute distress Examination of the heart S1 and S2 Examination of the lungs bilateral breath sounds are heard Abdomen is soft nontender Examination of lower extremity shows edema 2+ bilaterally SUPERVISING [employer]OR TRA[employer]ER exam grossly intact - Labs CBC & Chem 7: 06/27/24 07:58 06/27/24 07:58 Labs: Abnormal Lab Results - Last 24 Hours (Table) 06/26/24 06/26/24 06/26/24 Range/Units 11:28 16:53 20:16 RBC (4.30-5.90) m/uL Hgb (13.0-17.5) gm/dL Hct (39.0-53.0) % MCV (80.0-100.0) fL MCHC (31.0-37.0) g/dL RDW (11.5-15.5) % Chloride 109 H (98-107) mmol/L Carbon Dioxide (22-30) mmol/L BUN 39 H (9-20) mg/dL Creatinine 2.71 H (0.66-1.25) mg/dL Glucose 127 H (74-99) mg/dL POC Glucose (mg/dL) 224 H 271 H (70-110) mg/dL Calcium 8.1 L (8.4-10.2) mg/dL 06/27/24 06/27/24 06/27/24 Range/Units 06:05 07:58 07:58 RBC 2.87 L (4.30-5.90) m/uL Hgb 8.6 L (13.0-17.5) gm/dL Hct 29.5 L (39.0-53.0) % MCV 103.0 H D (80.0-100.0) fL MCHC 29.0 L (31.0-37.0) g/dL RDW 16.9 H (11.5-15.5) % Chloride (98-107) mmol/L Carbon Dioxide 21 L (22-30) mmol/L BUN 36 H (9-20) mg/dL Creatinine 2.94 H (0.66-1.25) mg/dL Glucose 215 H (74-99) mg/dL POC Glucose (mg/dL) 223 H (70-110) mg/dL Calcium (8.4-10.2) mg/dL 06/27/24 Range/Units 11:11 RBC (4.30-5.90) m/uL Hgb (13.0-17.5) gm/dL Hct (39.0-53.0) % MCV (80.0-100.0) fL MCHC (31.0-37.0) g/dL RDW (11.5-15.5) % Chloride (98-107) mmol/L Carbon Dioxide (22-30) mmol/L BUN (9-20) mg/dL Creatinine (0.66-1.25) mg/dL Glucose (74-99) mg/dL POC Glucose (mg/dL) 154 H (70-110) mg/dL Calcium (8.4-10.2) mg/dL Assessment and Plan Assessment: 1. Chronic kidney disease stage IV baseline creatinine 3-3.5 secondary to nephrosclerosis and diabetic kidney disease. Kidney biopsy in the past showed ATN superimposed on chronic injury with acute inflammation suggestive of polynephritis/reflux nephropathy. 2. Hypokalemia from diuresis and poor intake. Magnesium normal. Replaced. Improved. 3. Metabolic acidosis secondary to chronic kidney disease. On oral bicarb. 4. Acute hypoxic respiratory failure. 5. Pneumonia on antibiotics. Blood cultures positive for strep pneumo. 6. Anemia of chronic kidney disease. Iron deficiency noted. Receiving IV iron . Also on Aranesp. Having dark bowel movements. Surgery following. Endoscopy once medically stable. 7. Hypertension with chronic kidney disease. Stable. 8. Diabetes mellitus. 9. Lower extremity edema. Restarted on diuretics Plan: IV Lasix x 1 today Continue with torsemide Follow-up as outpatient in 1 to 2 weeks.
--- NOTE | 2024-06-27 13:31 | P.PN ---
Subjective Progress Note Date: 06/27/24 CHIEF COMPLAINT: Anemia, GI bleed HISTORY OF PRESENT ILLNESS: Patient status post EGD and colonoscopy with results reporting hiatal hernia, tubular adenoma of the ascending colon, transverse colon and ascending colon, sigmoid diverticulosis, internal hemorrhoids. Patient does report some mild blood noted on toilet paper after wiping. Hemoglobin has gone up from 7.7-8.6. Medicine service is already restarted the [facility] PHYSICAL EXAM: VITAL SIGNS: Reviewed GENERAL: Well-developed in no acute distress. HEENT: No sclera icterus. Extraocular movements grossly intact. Moist buccal mucosa. Head is atraumatic, normocephalic. Hears conversational speech. No nasal drainage. NECK: Supple without lymphadenopathy. CHEST: Non-labored respirations and equal bilateral excursions. CARDIOVASCULAR: Palpable 2+ radial pulses. ABDOMEN: Soft. Nondistended. Nontender. MUSCULOSKELETAL: No clubbing or cyanosis. NEUROLOGIC: No focal or lateralizing signs. Cranial nerves II through XII grossly intact. PSYCH: Appropriate affect. Alert and oriented to person, place and time. SKIN: Well perfused. Good skin turgor. ASSESSMENT: Anemia GI bleed Tubular adenoma ascending colon Tubular adenoma transverse colon Tubular adenoma descending colon Sigmoid diverticulosis Internal hemorrhoids, grade 2 Enlarged prostate Diaphragmatic hiatal hernia PLAN: -Hemoglobin is trending up. Expected to have some blood noted with wiping due to the hemorrhoids and polypectomy. -Surgical service will sign off. Please call with any questions or concerns Physician Photographer Model note has been reviewed by physician. Signing provider agrees with the documented findings, assessment, and plan of care.. Objective - Vital Signs Vital signs: Vital Signs Temp 98.3 F 06/27/24 12:18 Pulse 76 06/27/24 12:18 Resp 18 06/27/24 12:18 BP 133/67 06/27/24 12:18 Pulse Ox 100 06/27/24 12:18 FiO2 40 06/21/24 13:35 Intake & Output 06/26/24 06/27/24 06/27/24 18:59 06:59 18:59 Intake Total 960 260 280 Balance 960 260 280 Weight 71 kg Intake: IV 500 20 Invasive Line 3 20 Intake, IV Titration 100 100 Amount Sodium Ferric Gluconat- 100 100 Sucrose 125 mg In Sodium Chloride 0.9% 100 ml @ 100 mls/hr IVPB DAILY [facility] Rx#:[id number] Oral 360 240 180 Other: Voiding Method Toilet Bedside Commode # Voids 3 # Bowel Movements 2 3 3 - Labs CBC & Chem 7: 06/27/24 07:58 06/27/24 07:58 Labs: Abnormal Lab Results - Last 24 Hours (Table) 06/26/24 06/26/24 06/27/24 Range/Units 16:53 20:16 06:05 RBC (4.30-5.90) m/uL Hgb (13.0-17.5) gm/dL Hct (39.0-53.0) % MCV (80.0-100.0) fL MCHC (31.0-37.0) g/dL RDW (11.5-15.5) % Carbon Dioxide (22-30) mmol/L BUN (9-20) mg/dL Creatinine (0.66-1.25) mg/dL Glucose (74-99) mg/dL POC Glucose (mg/dL) 224 H 271 H 223 H (70-110) mg/dL 06/27/24 06/27/24 06/27/24 Range/Units 07:58 07:58 11:11 RBC 2.87 L (4.30-5.90) m/uL Hgb 8.6 L (13.0-17.5) gm/dL Hct 29.5 L (39.0-53.0) % MCV 103.0 H D (80.0-100.0) fL MCHC 29.0 L (31.0-37.0) g/dL RDW 16.9 H (11.5-15.5) % Carbon Dioxide 21 L (22-30) mmol/L BUN 36 H (9-20) mg/dL Creatinine 2.94 H (0.66-1.25) mg/dL Glucose 215 H (74-99) mg/dL POC Glucose (mg/dL) 154 H (70-110) mg/dL
--- NOTE | 2024-06-27 14:51 | P.PN ---
Subjective Progress Note Date: 06/27/24 The patient is a pleasant 78-year-old gentleman who is known to our service from before with extensive cardiovascular history consistent of history of CAD status post CABG with unknown details at this point as well as cardiomyopathy with EF between 45 to 50% and history of heart failure and advanced chronic kidney disease as well as permanent atrial fibrillation and multiple comorbid conditions. He presented to the hospital with 3 to 4 days history of progressive exertional dyspnea associated with cough with no sputum production and no fever and no chills but congestions and also bilateral lower extremities edema. No change in the weight according to him. No symptoms of chest pain or chest discomfort or dizziness or lightheadedness or any feeling of heart racing or fluttering or presyncope or syncope. He underwent further evaluation including EKG showing atrial fibrillation with diffuse nonspecific ST and T wave abnormalities and also he underwent chest x-ray showed pneumonia. His crea tinine is elevated and he is known to have chronic kidney disease. He is not on dialysis. He was seen by the nephrology service and he received 1 dose of IV Lasix and he was placed on oral diuretics. The physical examination is remarkable for irregular rhythm with a very distant heart sounds and heart to hear any cardiac murmurs because of extensive wheezing and extensive crackles bilaterally. Otherwise the physical examination is remarkable for severe bilateral lower extremities pitting edema June 22, 2024 The patient was seen and evaluated this morning. Overall he is feeling better. The shortness of breath is slightly better. No other cardiovascular symptoms including any chest pain. Hemodynamically he is stable with a hemoglobin has came down and for that reason and for the reason that he was tested positive for blood in the stool oral anticoagulation with Eliquis is on hold at this point. He is on oral diuretics. The physical examination is remarkable for bilateral expiratory wheezing and no edema was noted in the lower extremities. June 23, 2024 The patient was seen and evaluated this morning. He did have some nosebleed yesterday. Oral anticoagulation continues to be on hold for ruling out GI bleeding and he is in process of having an EGD. The physical examination is remarkable for irregular rhythm with bilateral expiratory wheezing and mild bilateral lower extremity edema. Currently he is on oral diuretics. June 24, 2024 The patient was seen and evaluated this morning. He stated that the shortness of breath is slightly better and no symptoms of chest pain. Hemodynamically he is stable with he is going to undergo an EGD this coming Wednesday. Oral anticoagulation is on hold. He is on oral diuretics as well. The physical examination is remarkable for irregular rhythm with improvement in the wheezing since yesterday and mild bilateral lower extremities edema. June 25, 2024 The patient was seen and evaluated this morning and his main complaint is being weak but his hemoglobin continues to be low around 7. He does have shortness of breath with exertion appears to be the same as before and bilateral lower extremity edema also appears to be the same as before no symptoms of chest pain or chest comfort. Hemodynamically he is stable. He is on oral diuretics. He is not on any oral anticoagulation. The plan is to pursue colonoscopy tomorrow and he is getting only prep for it. The physical examination is remarkable for irregular rhythm with a systolic murmur and bilateral rhonchi/wheezing and mild bilateral lower extremities edema 06/26/2024 Patient underwent upper GI endoscopy and colonoscopy. Upper GI endoscopy did not show any active bleeding. Colonoscopy showed diverticulosis and tubular adenomas. Will resume Eliquis 06/27/2024 BP 133/65, heart rate 80 bpm Telemetry shows sinus rhythm with possible AV block. On exam he has 2+ pitting edema in bilateral lower extremity. Patient reports that he takes torsemide 20 mg 2 times a day. Currently is getting once a day, will increase the dose. Baseline creatinine is at 3 and kidney function appears to be stable. Assessment Acute hypoxic respiratory failure Heart failure with HFrEF Paroxysmal atrial fibrillation, currently in sinus rhythm CAD status post CABG Advanced chronic kidney disease Acute on chronic anemia Plan Continue torsemide at home dose of 20 mg twice daily Amlodipine 5 mg, metoprolol 25 mg twice daily Eliquis 2.5 mg BID, monitor Hb level. Recommend outpatient watchman evaluation At this time patient is stable from cardiovascular standpoint. Cardiology team will sign off. Please reconsult us in case of any question Objective - Vital Signs Vital signs: Vital Signs Temp 98.3 F 06/27/24 12:18 Pulse 76 06/27/24 12:18 Resp 18 06/27/24 12:18 BP 133/67 06/27/24 12:18 Pulse Ox 100 06/27/24 12:18 FiO2 40 06/21/24 13:35 Intake & Output 06/26/24 06/27/24 06/27/24 18:59 06:59 18:59 Intake Total 960 260 460 Balance 960 260 460 Weight 71 kg Intake: IV 500 20 Invasive Line 3 20 Intake, IV Titration 100 100 Amount Sodium Ferric Gluconat- 100 100 Sucrose 125 mg In Sodium Chloride 0.9% 100 ml @ 100 mls/hr IVPB DAILY [facility] Rx#:[id number] Oral 360 240 360 Other: Voiding Method Toilet Bedside Commode # Voids 3 # Bowel Movements 2 3 3 - Labs CBC & Chem 7: 06/27/24 07:58 06/27/24 07:58 Labs: Abnormal Lab Results - Last 24 Hours (Table) 06/26/24 06/26/24 06/27/24 Range/Units 16:53 20:16 06:05 RBC (4.30-5.90) m/uL Hgb (13.0-17.5) gm/dL Hct (39.0-53.0) % MCV (80.0-100.0) fL MCHC (31.0-37.0) g/dL RDW (11.5-15.5) % Carbon Dioxide (22-30) mmol/L BUN (9-20) mg/dL Creatinine (0.66-1.25) mg/dL Glucose (74-99) mg/dL POC Glucose (mg/dL) 224 H 271 H 223 H (70-110) mg/dL 06/27/24 06/27/24 06/27/24 Range/Units 07:58 07:58 11:11 RBC 2.87 L (4.30-5.90) m/uL Hgb 8.6 L (13.0-17.5) gm/dL Hct 29.5 L (39.0-53.0) % MCV 103.0 H D (80.0-100.0) fL MCHC 29.0 L (31.0-37.0) g/dL RDW 16.9 H (11.5-15.5) % Carbon Dioxide 21 L (22-30) mmol/L BUN 36 H (9-20) mg/dL Creatinine 2.94 H (0.66-1.25) mg/dL Glucose 215 H (74-99) mg/dL POC Glucose (mg/dL) 154 H (70-110) mg/dL
--- NOTE | 2024-06-27 15:30 | P.PN ---
Subjective Progress Note Date: 06/27/24 78-year-old male who follows with a family doctor in [place], who recently retired, as well as Dr. Cortés in cardiology, my partner, and Dr. Rodriguez in nephrology. The patient presented to the emergency department, at about 10:00 PM, on June 20. He came in with shortness of breath. He was brought in by EMS. The patient states that he could only walk just a few feet before coming short of breath. It had been going on for a couple of days, and maybe a bit longer. He got progressively worse, so the patient came in to be evaluated. He is seen in the emergency department, room 22. The patient was initially on BiPAP, settings of 12/6, and 40%. When we saw him in the emergency department, he was just getting off the bedside commode, and was not wearing any oxygen whatsoever. The patient has no history of tobacco use, and he does not use home oxygen. I asked him what he sees my partner for, and he says that he is short of breath, primarily from heart disease. He did have an elevated procalcitonin level of 6.60. His BNP was quite high at 84,500. He was placed on azithromycin and Rocephin. Current laboratory data includes a white count 13, hemoglobin 8.3, hematocrit 25.8, and a platelet count of 144,000. Sodium 135, potassium 3, chlorides 103, CO2 17, anion gap 15, BUN 70, creatinine 3.03. Glucose is 199. Troponin was 0.104. ALT was 50. Viral screen was negative. Chest x-ray in my opinion, showed diffuse bilateral infiltrates, with a predominance in the left lower lobe. In addition to azithromycin and Rocephin, the patient was given Symbicort, updrafts with DuoNeb, and Lasix. Progress note dated June 22, 2024. 78-year-old male who was seen in consultation yesterday. We saw him in the emergency department yesterday. Today, we see him in room 371. He is feeling a bit better. He is currently on 5 L nasal cannula. He did use the BiPAP briefly last night, with settings of 12/6, and 40%. He is not receiving any IV fluids at this time. Current laboratory data includes a white count 5.4, hemoglobin 7.6, hematocrit 25.6, and a platelet count of 129,000. Sodium 139, potassium 2.9, chlorides 108, CO2 20, BUN 80, and creatinine 3.33. Glucose is 121. Ca lcium 8.5. Magnesium 2.2. Blood cultures are apparently positive for Streptococcus pneumoniae. The patient is currently on Rocephin, Symbicort, Lasix, and updrafts. Progress note dated June 23, 2024. 78-year-old male seen today in room 371. He was seen in consultation 2 days ago. He is resting comfortably in bed. He is awake and alert. He is on 2 L nasal cannula. No IV fluids. He apparently scheduled to have a colonoscopy today. He continues on Rocephin. Blood cultures were positive for Streptococcus pneumoniae. Procalcitonin level was elevated. Current laboratory data includes a white count 5.2, hemoglobin 7.7, hematocrit 25.2, and a platelet count of 130,000. Sodium 139, potassium 3.9, chlorides 109, CO2 18, anion gap 12, BUN 74, creatinine 3.13. Glucose is 137. Calcium 8.4, magnesium 2.1. Progress note dated June 24, 2024. 78-year-old male seen today in room 371. The patient states that he is finally feeling a bit better. He continues on oxygen, by nasal cannula 2 L. Is not receiving any IV fluids. He does continue on Rocephin for blood culture positive for Streptococcus pneumoniae. The patient denies any worsening or more severe shortness of breath, cough, wheezing, chest tightness, or phlegm production. Current laboratory data includes a sodium 138, potassium 4, chlorides 107, CO2 19, anion gap 12, BUN 64, and creatinine 2.93. Glucose is 168, calcium 8.7, and magnesium 2.1. Progress note dated June 25, 2024. 78-year-old male seen in room 371. The patient seems to be doing better. He is on 2 L of oxygen. Saturations are 94 to 95%. The patient is currently receiving a prep, for a colonoscopy in the morning. The patient is not having any respiratory issues at this time. His white count is 19.1, hemoglobin 10.8, macro 35.9, and platelet count was normal. Sodium 135, potassium 4.8, chlorides 102, CO2 26, BUN 37, creatinine 1.40. Glucose is 129. Calcium is 8.2. No chest x-ray today. On 06/26/2024, the patient is being seen for a follow-up. He is feeling slightly improved compared to yesterday. The patient underwent an EGD today and the patient was found to have diaphragmatic hiatus at 40 cm, hiatal hernia 5 cm sliding-type and grade B erosive esophagitis. No duodenitis. No evidence of any acute bleeding. The patient is currently on room air oxygen with a pulse ox of 94%. He is being treated for a left lower lobe pneumococcal pneumonia with positive bacteremia. The patient was being treated with IV Rocephin. ID is on the case. Hemodynamically stable. Renal function has improved during this current admission creatinine is currently down to 2.7 as the patient has chronic stage IV kidney disease. Sodium is at 140, potassium is at 3.7. The white cell count is 5.2 with a hemoglobin of 7.7. The chest x-ray at time of admission showed a left lower lobe consolidation. Since then, the patient has not had any follow-up chest x-ray imaging. Nevertheless, no significant cough sputum production. No hemoptysis or pleurisy. No altered mentation. He is chronically debilitated and remains quite weak. The patient is currently off Eliquis. Hemoglobin is being monitored. On 06/27/2024, the patient remains on room air oxygen. No new complaints. No interval worsening shortness of breath. Remains on Symbicort. Remains on DuoNeb nebulized treatments [id number]. The patient received IV iron re garding his chronic anemia. He is also on torsemide 20 mg p.o. twice a day. Producing urine output. Rest of the medications are essentially unchanged. He remains on metoprolol 25 mg p.o. twice a day. He is still being treated for pneumococcal septicemia and the patient remains on IV Rocephin. Repeat chest x- ray from 06/27/2024 shows improvement in left lower lobe consolidation. There is cardiomegaly and some mild pulm vessel congestion. Clinically, improved and the patient is hemodynamically stable at this point in time. Nephrology on the case. Cardiology on the case. The patient remains on anticoagulation with Eliquis 2.5 mg p.o. twice a day. He is on amlodipine 5 mg p.o. daily for blood pressure control. Objective - Vital Signs Vital signs: Vital Signs Temp 98.2 F 06/27/24 08:15 Pulse 80 06/27/24 09:12 Resp 18 06/27/24 08:15 BP 142/66 06/27/24 08:15 Pulse Ox 97 06/27/24 08:15 FiO2 40 06/21/24 13:35 Intake & Output 06/26/24 06/27/24 06/27/24 18:59 06:59 18:59 Intake Total 960 260 180 Balance 960 260 180 Weight 71 kg Intake: IV 500 20 Invasive Line 3 20 Intake, IV Titration 100 Amount Sodium Ferric Gluconat- 100 Sucrose 125 mg In Sodium Chloride 0.9% 100 ml @ 100 mls/hr IVPB DAILY [facility] Rx#:[id number] Oral 360 240 180 Other: Voiding Method Toilet Bedside Commode # Voids 3 # Bowel Movements 2 3 - Exam The patient appeared well nourished and normally developed. Vital signs as documented. Head exam is unremarkable. No scleral icterus or corneal arcus noted. Neck is without jugular venous distension, thyromegaly, or carotid bruits. Carotid upstrokes are brisk bilaterally. Lungs are are diminished bilaterally Cardiac exam reveals the PMI to be normally sized and situated. Rhythm is regular. First and second heart sounds normal. No murmurs, rubs or gallops. Abdominal exam reveals normal bowel sounds, no masses, no organomegaly and no aortic enlargement. Extremities are edematous and the patient has +1 pitting edema and both femoral and pedal pulses are normal. Examination of the skin revealed no evidence of significant rashes, suspicious appearing nevi or other concerning lesions. Neurologically, the patient is awake and alert and the patient does not have any focal neurological deficit. Cranial nerves are essentially intact. - Labs CBC & Chem 7: 06/27/24 07:58 06/27/24 07:58 Labs: Abnormal Lab Results - Last 24 Hours (Table) 06/26/24 06/26/24 06/26/24 Range/Units 11:28 11:36 16:53 RBC (4.30-5.90) m/uL Hgb (13.0-17.5) gm/dL Hct (39.0-53.0) % MCV (80.0-100.0) fL MCHC (31.0-37.0) g/dL RDW (11.5-15.5) % Chloride 109 H (98-107) mmol/L Carbon Dioxide (22-30) mmol/L BUN 39 H (9-20) mg/dL Creatinine 2.71 H (0.66-1.25) mg/dL Glucose 127 H (74-99) mg/dL POC Glucose (mg/dL) 136 H 224 H (70-110) mg/dL Calcium 8.1 L (8.4-10.2) mg/dL 06/26/24 06/27/24 06/27/24 Range/Units 20:16 06:05 07:58 RBC 2.87 L (4.30-5.90) m/uL Hgb 8.6 L (13.0-17.5) gm/dL Hct 29.5 L (39.0-53.0) % MCV 103.0 H D (80.0-100.0) fL MCHC 29.0 L (31.0-37.0) g/dL RDW 16.9 H (11.5-15.5) % Chloride (98-107) mmol/L Carbon Dioxide (22-30) mmol/L BUN (9-20) mg/dL Creatinine (0.66-1.25) mg/dL Glucose (74-99) mg/dL POC Glucose (mg/dL) 271 H 223 H (70-110) mg/dL Calcium (8.4-10.2) mg/dL 06/27/24 06/27/24 Range/Units 07:58 11:11 RBC (4.30-5.90) m/uL Hgb (13.0-17.5) gm/dL Hct (39.0-53.0) % MCV (80.0-100.0) fL MCHC (31.0-37.0) g/dL RDW (11.5-15.5) % Chloride (98-107) mmol/L Carbon Dioxide 21 L (22-30) mmol/L BUN 36 H (9-20) mg/dL Creatinine 2.94 H (0.66-1.25) mg/dL Glucose 215 H (74-99) mg/dL POC Glucose (mg/dL) 154 H (70-110) mg/dL Calcium (8.4-10.2) mg/dL Assessment and Plan Plan: Acute hypoxemic respiratory failure, essentially secondary to a left lower lobe pneumococcal pneumonia, currently on room air oxygen. Clinically improved and the patient oxygenation is also improved, the patient remains on room air oxyg en. The patient is still on IV Rocephin. Follow-up chest x-ray from 06/27/2024 shows cardiomegaly and mild pulm vascular congestion. No significant consolidation left lower lobe. Acute on chronic shortness of breath, improving Streptococcus pneumoniae bacteremia of the left lower lobe, currently on IV Rocephin, ID is on the case. The patient was bacteremic secondary to left lower lobe pneumonia. History of coronary artery disease, status post CABG. History of chronic atrial fibrillation, controlled rate, currently off anticoagulation History of hypertension. History of diabetes mellitus Chronic stage IV kidney disease, renal function is improving and nephrology is on the case History of chronic anxiety. Hyperlipidemia. 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 EGD was completed and patient has erosive esophagitis with a hiatal hernia. No evidence of any acute bleeding Continue IV iron Monitor renal function Patient currently on room air oxygen Continue torsemide Continue metoprolol Continue amlodipine Anticoagulation still on hold Continue Aranesp Amlodipine for blood pressure control Continue Pravachol continue Flomax IV Protonix Will follow Time with Patient: Greater than 30
[2024-06-27] MEDS: TORSEMIDE 20 MG TAB PO SCH (15:50)
--- NOTE | 2024-06-27 16:02 | P.PN ---
Subjective Progress Note Date: 06/27/24 Principal diagnosis: Reason for follow up with Streptococcus pneumoniae bacteremia and pneumonia Patient is a 78-year-old male with a past medical history significant for Atrial Fibrillation, Coronary Artery Disease (CAD), Diabetes Mellitus, Dialysis, Hypertension, Prostate Disorder, Renal Disease, presenting to the hospital for evaluation of increasing shortness of breath and weakness, patient presenting with left lower lobe pneumonia positive blood culture with strep pneumo prompting this consultation. On today's evaluation that is 06/27/2024, Patient is afebrile this morning patient denies having any chest pain shortness of breath or any worsening cough, the patient is currently on room air, patient denies any abdominal pain no diarrhea no nausea no vomiting. Patient white count is 8.3, creatinine is 2.94 Objective - Vital Signs Vital signs: Vital Signs Temp 98.2 F 06/27/24 08:15 Pulse 80 06/27/24 09:12 Resp 18 06/27/24 08:15 BP 142/66 06/27/24 08:15 Pulse Ox 97 06/27/24 08:15 FiO2 40 06/21/24 13:35 Intake & Output 06/26/24 06/27/24 06/27/24 18:59 06:59 18:59 Intake Total 960 260 180 Balance 960 260 180 Weight 71 kg Intake: IV 500 20 Invasive Line 3 20 Intake, IV Titration 100 Amount Sodium Ferric Gluconat- 100 Sucrose 125 mg In Sodium Chloride 0.9% 100 ml @ 100 mls/hr IVPB DAILY [facility] Rx#:[id number] Oral 360 240 180 Other: Voiding Method Toilet Bedside Commode # Voids 3 # Bowel Movements 2 3 - Exam GENERAL DESCRIPTION: An elderly male lying in bed in no distress RESPIRATORY SYSTEM: Unlabored breathing , decreased breath sounds at bases HEART: S1 S2 regular rate and rhythm , ABDOMEN: Soft , no tenderness EXTREMITIES: No edema feet - Labs CBC & Chem 7: 06/27/24 07:58 06/27/24 07:58 Labs: Abnormal Lab Results - Last 24 Hours (Table) 06/26/24 06/26/24 06/26/24 Range/Units 11:28 11:36 16:53 RBC (4.30-5.90) m/uL Hgb (13.0-17.5) gm/dL Hct (39.0-53.0) % MCV (80.0-100.0) fL MCHC (31.0-37.0) g/dL RDW (11.5-15.5) % Chloride 109 H (98-107) mmol/L Carbon Dioxide (22-30) mmol/L BUN 39 H (9-20) mg/dL Creatinine 2.71 H (0.66-1.25) mg/dL Glucose 127 H (74-99) mg/dL POC Glucose (mg/dL) 136 H 224 H (70-110) mg/dL Calcium 8.1 L (8.4-10.2) mg/dL 06/26/24 06/27/24 06/27/24 Range/Units 20:16 06:05 07:58 RBC 2.87 L (4.30-5.90) m/uL Hgb 8.6 L (13.0-17.5) gm/dL Hct 29.5 L (39.0-53.0) % MCV 103.0 H D (80.0-100.0) fL MCHC 29.0 L (31.0-37.0) g/dL RDW 16.9 H (11.5-15.5) % Chloride (98-107) mmol/L Carbon Dioxide (22-30) mmol/L BUN (9-20) mg/dL Creatinine (0.66-1.25) mg/dL Glucose (74-99) mg/dL POC Glucose (mg/dL) 271 H 223 H (70-110) mg/dL Calcium (8.4-10.2) mg/dL 06/27/24 Range/Units 07:58 RBC (4.30-5.90) m/uL Hgb (13.0-17.5) gm/dL Hct (39.0-53.0) % MCV (80.0-100.0) fL MCHC (31.0-37.0) g/dL RDW (11.5-15.5) % Chloride (98-107) mmol/L Carbon Dioxide 21 L (22-30) mmol/L BUN 36 H (9-20) mg/dL Creatinine 2.94 H (0.66-1.25) mg/dL Glucose 215 H (74-99) mg/dL POC Glucose (mg/dL) (70-110) mg/dL Calcium (8.4-10.2) mg/dL Assessment and Plan (1) Bacteremia Current Visit: Yes Status: Acute Code(s): R78.81 - BACTEREMIA SNOMED Code(s): 6182199 (2) Pneumonia Current Visit: Yes Status: Acute Code(s): J18.9 - PNEUMONIA, UNSPECIFIED ORGANISM SNOMED Code(s): 178739376 (3) Sepsis Current Visit: Yes Status: Acute Code(s): A41.9 - SEPSIS, UNSPECIFIED ORGANISM SNOMED Code(s): 26056538 Plan: 1patient presented to hospital with sepsis in this patient who did have a elevated white count tachycardia meeting currently for SIRS source of the left lower lobe pneumonia likely community-acquired. 2patient with a Streptococcus pneumoniae bacteremia source is left lower lobe pneumonia. 3patient with a renal insufficiency high risk of nephrotoxicity from certain antibiotics. 4patient blood culture have been finalized with strep pneumo that is sensitive to ceftriaxone 5patient has shown clinical improvement with Rocephin to continue while inpatient and plan to finish therapy with oral Ceftin on discharge Dictation was produced using [employer] dictation software. please excuse any grammatical, word or spelling errors. Time with Patient: Less than 30
[2024-06-27 16:11] LABS: Glucose,Whole Blood 180 mg/dL (70-110)
--- NOTE | 2024-06-27 16:42 | P.PN ---
Progress Note - Text Progress Note Date: 06/27/24 This is a pleasant 78 years old male with past medical history of multiple medical problems as below Presents because of fever and dyspnea and cough and chest pain x 2 weeks. 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 Chambers and Dr. Hobson. However patient kept to get worse. He decided to come to the hospital Currently he is on BiPAP he is coughing through the BiPAP he states he has clear phlegm and also he is breathing fast more than 25 breaths/min. He denies chest pain currently. No abdominal pain or vomiting but reports he has diarrhea, he has 1 loose bowel movement yesterday and he had 1 loose and black bowel movement this morning. No urinary complaint he has dizziness but no headache weakness or numbness No history of smoking. However daily drinking of alcohol is reported, marijuana abuse is also recorded He is currently tachypneic, he had low-grade temperature 99.5. On admission he was saturating 91 on room air but currently BiPAP He has mild leukocytosis of 13,000, hemoglobin dropped to 8.3 with baseline about 10-11. Platelet count 144. Creatinine 3.0 with baseline 3-6. proBNP is elevated at 4500. Chest x-ray showing left lower lobe infiltrate suspicious for pneumonia EKG showing sinus rhythm at [address]-T changes. Patient started on ceftriaxone and Zithromax also he is on aspirin 81 mg. Last echocardiogram from 02/19/2024: Showed ejection fraction of 45 to 50% 06/22 Patient states his breathing is slightly better, he still on 5 L oxygen via na sabino cannula He is afebrile with no chest pain or abdominal pain He still has black stool and occult blood was positive, hemoglobin dropped to 7.6. Suspicion of GI bleed is high therefore consulting surgery team as there is no GI in this facility during this week He is already on IV Protonix twice daily. We are going to hold his aspirin 81 mg. If his hemoglobin drops less than 7 okay for monitoring of blood transfusion He is on Rocephin and Zithromax. Procalcitonin is elevated. Anemia workup is requested He denies history of alcohol although it was documented in the chart therefore we will discontinue CIWA protocol. 06/23 Patient slightly better breathing today he still tachypneic with breathing rate about 26 but has good oxygen saturation. No chest pain no abdominal pain He has dark brownish stool but not black. Hemoglobin stable today at 7.7. He got IV iron yesterday. aspirin remains on hold, he is on IV Protonix twice daily, Remains on antibiotic ceftriaxone and Zithromax. Blood culture positive for Streptococcus pneumonia Creatinine slightly worse today at 3.3. 06/24 Patient still feels very weak overall he is better than he came in, he is sitting at the side of the chair She he still quite tachypneic and short of breath he still has coarse crepitation with inspiration His creatinine slightly coming down to 0.9 Hemoglobin 7.7 with no more episodes of bloody stool. Aspirin remains on hold for now he is still getting IV Protonix He still on ceftriaxone with positive blood culture 06/25 Patient still feels short of breath, no chest pain. He still has scattered wheezing and coarse crepitation He is saturating low 90s on 2 L oxygen via nasal cannula He is advanced stage kidney disease but not on dialysis, has good urine output on torsemide Plan for EGD/colonoscopy tomorrow. From medical perspective he is at accelerated risk from the procedure due to his heart and kidney problem and heart failure but there is no absolute contraindication June 26: Underwent EGD colonoscopy by Dr. Mercado. Polyps were removed. Otherwise unremarkable. Ate well. Has a slight cough. No sputum. Overall feeling better. Pulse ox was checked it was 94% room air. Patient blood cultures positive for Streptococcus pneumoniae on June 20. Patient had been getting IV ceftriaxone. I do not see it in the [facility]. Will resume same. Increase activity. EGD: Erosive esophagitis. No stigmata of bleeding. Getting IV Ferrlecit. Resume Eliquis June 27: Breathing much better. Pulse ox 97% room air. Oral intake fair. Patient is rather concerned about his is also admitted on the same floor. Requesting 1 more i day in the hospital to sort out social issues including getting help at home. Patient is having some bleeding from his hemorrhoids. Anusol HC will be ordered. Active Medications Albuterol/Ipratropium (Ipratropium-Albuterol 3 Ml Neb) 3 ml INHALATION RT-QID [facility] Last Admin: 06/27/24 11:54 Dose: 3 ml Amlodipine Besylate (Amlodipine 5 Mg Tab) 5 mg PO QAM [facility] Last Admin: 06/27/24 08:19 Dose: 5 mg Budesonide/Formoterol Fumarate (Symbicort 160-4.5 Mcg Inhaler) 1 puff INHALATION RT-BID [facility] Last Admin: 06/27/24 08:58 Dose: 1 puff Darbepoetin Louis (Darbepoetin Louis 40 Mcg/0.4 Ml Syringe) 40 mcg SQ Q7D [facility] Last Admin: 06/22/24 11:32 Dose: 40 mcg Glipizide (Glipizide 5 Mg Tab) 2.5 mg PO Q72H [facility] Last Admin: 06/27/24 08:18 Dose: 2.5 mg Hydrocortisone Acetate (Hydrocortisone Suppository 25 Mg Supp) 25 mg RECTAL BID [facility] Ferric Sodium Gluconate 125 mg (/ Sodium Chloride) 110 mls @ 100 mls/hr IVPB DAILY [facility] Stop: 06/28/24 17:29 Last Admin: 06/27/24 09:24 Dose: 100 mls/hr Ceftriaxone Sodium 2 gm/ (Sodium Chloride) 50 mls @ 100 mls/hr IVPB Q24H [facility]; Protocol Last Admin: 06/26/24 20:32 Dose: 100 mls/hr Lactulose (Lactulose 20 Gm/30 Ml Cup) 30 gm PO BID [facility] Last Admin: 06/27/24 08:19 Dose: Not Given Magnesium Hydroxide (Magnesium Hydroxide 2,400 Mg/30 Ml Cup) 2,400 mg PO BID [facility] Last Admin: 06/27/24 08:19 Dose: Not Given Meclizine HCl (Meclizine 25 Mg Tab) 25 mg PO BID [facility] Last Admin: 06/27/24 08:19 Dose: 25 mg Metoprolol Tartrate (Metoprolol Tartrate 25 Mg Tab) 25 mg PO BID [facility] Last Admin: 06/27/24 08:19 Dose: 25 mg Miscellaneous Information (Pneumonia Protocol Utilized 1 Each Misc) 1 each PO ONCE PRN PRN Reason: Per Protocol Miscellaneous Information (Potassium Replacement Protocol 1 Each Misc) 1 each MISCELLANE DAILY PRN; Protocol PRN Reason: Per Protocol Pantoprazole Sodium (Pantoprazole 40 Mg Tablet) 40 mg PO AC-BRKFST [facility] Petrolatum (Zinc Oxide Paste (Z-Guard) 1 Applic) 1 applic TOPICAL Q2HR PRN; Protocol PRN Reason: Wound Healing Last Admin: 06/27/24 09:24 Dose: 1 applic Pravastatin Sodium (Pravastatin Sodium 40 Mg Tab) 40 mg PO HS [facility] Last Admin: 06/26/24 20:31 Dose: 40 mg Sodium Bicarbonate (Sodium Bicarbonate Tab 650 Mg Tab) 650 mg PO BID [facility] Last Admin: 06/27/24 08:19 Dose: 650 mg Tamsulosin HCl (Tamsulosin 0.4 Mg Cap.Er.24h) 0.4 mg PO BID [facility] Last Admin: 06/27/24 08:19 Dose: 0.4 mg Torsemide (Torsemide 20 Mg Tab) 20 mg PO BID [facility] Last Admin: 06/27/24 15:50 Dose: 20 mg On examination: VITAL SIGNS: 97.4, 91, 18, 158 x 33, 97% room GENERAL APPEARANCE: BMI 24.8, sitting at the edge of the bed, bit anxious HEENT: Normal external appearance of nose and ear. Oral cavity normal EYES: Pupils equal. Conjunctiva normal. NECK: JVD not raised. Mass not palpable. RESPIRATORY: Respiratory effort normal. Lungs decreased breath sound CARDIOVASCULAR: First and second sounds normal. No edema. ABDOMEN: Soft. Liver and spleen not palpable. No tenderness. No mass palpable. PSYCHIATRY: Alert and oriented x3. Mood and affect appeared anxious INVESTIGATIONS, reviewed in the clinical context: June 27: White count 8.3 hemoglobin 8.6 sodium 140 potassium 4 BUN 36 creatinine 2.94 June 26: Sodium 140 potassium 3.7 BUN 39 creatinine 2.71 June 20: Creatinine 3.03 Assessment plan: -Left lower lobe pneumonia, suspect gram-negative organism IV ceftriaxone -Acute CHF exacerbation, which is suspected both systolic and diastolic dysfunction with slightly lowered ejection fraction, EF 45 to 50% per cardiology notes Received Lasix. Now on Demadex -Acute hypoxic respiratory failure secondary to above, resolved Initially required BiPAP. Now down to room air -Acute GI bleed is suspected with iron deficiency anemia. Normocytic anemia, chronic with recent worsening and black stool. EGD colonoscopy showing some esophagitis. Otherwise unremarkable. No stigmata of bleeding. Some polyps removed Protonix -Bacteremia with positive blood culture for Streptococcus pneumoniae: Improving IV ceftriaxone -Chronic kidney disease stage IV secondary to diabetic nephropathy Nephrology following. -Diabetes mellitus, type II on oral hypoglycemic Follow Accu-Cheks -Essential hypertension Amlodipine 5 mg a day. Lopressor 25 mg twice daily -Metabolic acidosis secondary to chronic kidney disease. On oral sodium bicarbonate -Hyperlipidemia Pravachol -Persistent atrial fibrillation, rate controlled Lopressor 25 twice daily. Eliquis when okay with surgery -Chronic fibromyalgia -Chronic low back pain and degenerative disc disease of the lumbar spine. -Full code Plan for discharge tomorrow.
[2024-06-27 20:35] LABS: Glucose,Whole Blood 211 mg/dL (70-110)
[2024-06-27] MEDS: HYDROCORTISONE SUPPOSITORY 25 MG SUPP RECTAL SCH (21:45)
[2024-06-28 06:09] LABS: Glucose,Whole Blood 199 mg/dL (70-110)
[2024-06-28] MEDS: PANTOPRAZOLE 40 MG TABLET PO SCH (06:41)
[2024-06-28 10:30] VITALS: BP 126/57; RESP 18; TEMP 97.5
[2024-06-28 11:27] LABS: Glucose,Whole Blood 214 mg/dL (70-110)
--- NOTE | 2024-06-28 11:48 | P.PN ---
Subjective Progress Note Date: 06/28/24 Principal diagnosis: Reason for follow up with Streptococcus pneumoniae bacteremia and pneumonia Patient is a 78-year-old male with a past medical history significant for Atrial Fibrillation, Coronary Artery Disease (CAD), Diabetes Mellitus, Dialysis, Hypertension, Prostate Disorder, Renal Disease, presenting to the hospital for evaluation of increasing shortness of breath and weakness, patient presenting with left lower lobe pneumonia positive blood culture with strep pneumo prompting this consultation. On today's evaluation that is 06/28/2024,the patient denies any fever or any chills, patient is breathing comfortably on 2 L nasal oxygen, the patient denies chest pain shortness of breath and no worsening cough, patient denies nausea vomiting or diarrhea has been complaining of mostly lower abdominal pain unable to urinate. No new lab has been repeated today Objective - Vital Signs Vital signs: Vital Signs Temp 97.7 F 06/28/24 04:00 Pulse 88 06/28/24 08:18 Resp 20 06/28/24 04:00 BP 142/75 06/28/24 04:00 Pulse Ox 97 06/28/24 08:08 FiO2 40 06/21/24 13:35 Intake & Output 06/27/24 06/28/24 06/28/24 18:59 06:59 18:59 Intake Total 690 50 Balance 690 50 Weight 71.7 kg Intake: Intake, IV Titration 150 50 Amount Sodium Ferric Gluconat- 100 Sucrose 125 mg In Sodium Chloride 0.9% 100 ml @ 100 mls/hr IVPB DAILY [facility] Rx#:[id number] cefTRIAXone 2 gm In 50 50 Sodium Chloride 0.9% 50 ml @ 100 mls/hr IVPB Q24H [facility] Rx#:[id number] Oral 540 Other: Voiding Method Toilet Bedside Commode # Voids 2 # Bowel Movements 3 - Exam GENERAL DESCRIPTION: An elderly male lying in bed in no distress RESPIRATORY SYSTEM: Unlabored breathing , decreased breath sounds at bases HEART: S1 S2 regular rate and rhythm , ABDOMEN: Soft , no tenderness EXTREMITIES: No edema feet - Labs CBC & Chem 7: 06/27/24 07:58 06/27/24 07:58 Labs: Abnormal Lab Results - Last 24 Hours (Table) 06/27/24 06/27/24 06/27/24 Range/Units 11:11 16:09 20:34 POC Glucose (mg/dL) 154 H 180 H 211 H (70-110) mg/dL 06/28/24 Range/Units 06:07 POC Glucose (mg/dL) 199 H (70-110) mg/dL Assessment and Plan (1) Bacteremia Current Visit: Yes Status: Acute Code(s): R78.81 - BACTEREMIA SNOMED Code(s): 5114897 (2) Pneumonia Current Visit: Yes Status: Acute Code(s): J18.9 - PNEUMONIA, UNSPECIFIED ORGANISM SNOMED Code(s): 965905977 (3) Sepsis Current Visit: Yes Status: Acute Code(s): A41.9 - SEPSIS, UNSPECIFIED ORGANISM SNOMED Code(s): 79129419 Plan: 1patient presented to hospital with sepsis in this patient who did have a elevated white count tachycardia meeting currently for SIRS source of the left lower lobe pneumonia likely community-acquired. 2patient with a Streptococcus pneumoniae bacteremia source is left lower lobe pneumonia. 3patient with a renal insufficiency high risk of nephrotoxicity from certain antibiotics. 4patient blood culture have been finalized with strep pneumo that is sensitive to ceftriaxone 5patient has been afebrile white count has been normal, currently being treated with Rocephin while inpatient and plan to finish therapy with oral Ceftin on discharge, prescription already sent Dictation was produced using [employer] dictation software. please excuse any grammatical, word or spelling errors.
--- NOTE | 2024-06-28 12:55 | P.PN ---
Subjective Patient is seen for follow-up for chronic kidney disease. Status post colonoscopy and EGD yesterday with no active bleeding noted Renal function has been stable with serum creatinine staying around 3 mg/dL. Patient is complaining of increased swelling in his legs. Maintained on diuretics Denies shortness of breath. Objective - Vital Signs Vital signs: Vital Signs Temp 97.5 F L 06/28/24 08:00 Pulse 80 06/28/24 12:50 Resp 18 06/28/24 12:50 BP 126/57 06/28/24 08:00 Pulse Ox 97 06/28/24 08:08 FiO2 40 06/21/24 13:35 Intake & Output 06/27/24 06/28/24 06/28/24 18:59 06:59 18:59 Intake Total 690 50 240 Output Total 650 Balance 690 50 -410 Weight 71.7 kg Intake: Intake, IV Titration 150 50 Amount Sodium Ferric Gluconat- 100 Sucrose 125 mg In Sodium Chloride 0.9% 100 ml @ 100 mls/hr IVPB DAILY [facility] Rx#:[id number] cefTRIAXone 2 gm In 50 50 Sodium Chloride 0.9% 50 ml @ 100 mls/hr IVPB Q24H [facility] Rx#:[id number] Oral 540 240 Output: Urine 650 Straight 650 Other: Voiding Method Toilet Toilet Bedside Commode Bedside Commode # Voids 2 # Bowel Movements 3 - Exam Patient is awake, comfortable, no acute distress Examination of the heart S1 and S2 Examination of the lungs bilateral breath sounds are heard Abdomen is soft nontender Examination of lower extremity shows edema 2+ bilaterally [employer]IN[employer]IVER exam grossly intact - Labs CBC & Chem 7: 06/27/24 07:58 06/27/24 07:58 Labs: Abnormal Lab Results - Last 24 Hours (Table) 06/27/24 06/27/24 06/28/24 Range/Units 16:09 20:34 06:07 POC Glucose (mg/dL) 180 H 211 H 199 H (70-110) mg/dL 06/28/24 Range/Units 11:25 POC Glucose (mg/dL) 214 H (70-110) mg/dL Assessment and Plan Assessment: 1. Chronic kidney disease stage IV baseline creatinine 3-3.5 secondary to nephrosclerosis and diabetic kidney disease. Kidney biopsy in the past showed ATN superimposed on chronic injury with acute inflammation suggestive of polynephritis/reflux nephropathy. 2. Hypokalemia from diuresis and poor intake. Magnesium normal. Replaced. Improved. 3. Metabolic acidosis secondary to chronic kidney disease. On oral bicarb. 4. Acute hypoxic respiratory failure. 5. Pneumonia on antibiotics. Blood cultures positive for strep pneumo. 6. Anemia of chronic kidney disease. Iron deficiency noted. Receiving IV iron. Also on Aranesp. Having dark bowel movements. Surgery following. Endo scopy once medically stable. 7. Hypertension with chronic kidney disease. Stable. 8. Diabetes mellitus. 9. Lower extremity edema. Restarted on diuretics Plan: Continue with torsemide Follow-up as outpatient in 1 to 2 weeks.
[2024-06-28 13:19] LABS: African American GFR (CKD) 23 (>60 ml/min/1.73 sqM); Anion Gap 11 mmol/L; Blood Urea Nitrogen 33 mg/dL (9-20); Calcium 8.9 mg/dL (8.4-10.2); Carbon Dioxide 23 mmol/L (22-30); Chloride 107 mmol/L (98-107); Glucose 181 mg/dL (74-99); Non-African American GFR(CKD) 20 (>60 ml/min/1.73 sqM); Potassium 3.8 mmol/L (3.5-5.1); Sodium 141 mmol/L (137-145)
--- NOTE | 2024-06-28 15:34 | P.PN ---
Subjective Progress Note Date: 06/28/24 78-year-old male who follows with a family doctor in [place], who recently retired, as well as Dr. Cortés in cardiology, my partner, and Dr. Rodriguez in nephrology. The patient presented to the emergency department, at about 10:00 PM, on June 20. He came in with shortness of breath. He was brought in by EMS. The patient states that he could only walk just a few feet before coming short of breath. It had been going on for a couple of days, and maybe a bit longer. He got progressively worse, so the patient came in to be evaluated. He is seen in the emergency department, room 22. The patient was initially on BiPAP, settings of 12/6, and 40%. When we saw him in the emergency department, he was just getting off the bedside commode, and was not wearing any oxygen whatsoever. The patient has no history of tobacco use, and he does not use home oxygen. I asked him what he sees my partner for, and he says that he is short of breath, primarily from heart disease. He did have an elevated procalcitonin level of 6.60. His BNP was quite high at 84,500. He was placed on azithromycin and Rocephin. Current laboratory data includes a white count 13, hemoglobin 8.3, hematocrit 25.8, and a platelet count of 144,000. Sodium 135, potassium 3, chlorides 103, CO2 17, anion gap 15, BUN 70, creatinine 3.03. Glucose is 199. Troponin was 0.104. ALT was 50. Viral screen was negative. Chest x-ray in my opinion, showed diffuse bilateral infiltrates, with a predominance in the left lower lobe. In addition to azithromycin and Rocephin, the patient was given Symbicort, updrafts with DuoNeb, and Lasix. Progress note dated June 22, 2024. 78-year-old male who was seen in consultation yesterday. We saw him in the emergency department yesterday. Today, we see him in room 371. He is feeling a bit better. He is currently on 5 L nasal cannula. He did use the BiPAP briefly last night, with settings of 12/6, and 40%. He is not receiving any IV fluids at this time. Current laboratory data includes a white count 5.4, hemoglobin 7.6, hematocrit 25.6, and a platelet count of 129,000. Sodium 139, potassium 2.9, chlorides 108, CO2 20, BUN 80, and creatinine 3.33. Glucose is 121. Ca lcium 8.5. Magnesium 2.2. Blood cultures are apparently positive for Streptococcus pneumoniae. The patient is currently on Rocephin, Symbicort, Lasix, and updrafts. Progress note dated June 23, 2024. 78-year-old male seen today in room 371. He was seen in consultation 2 days ago. He is resting comfortably in bed. He is awake and alert. He is on 2 L nasal cannula. No IV fluids. He apparently scheduled to have a colonoscopy today. He continues on Rocephin. Blood cultures were positive for Streptococcus pneumoniae. Procalcitonin level was elevated. Current laboratory data includes a white count 5.2, hemoglobin 7.7, hematocrit 25.2, and a platelet count of 130,000. Sodium 139, potassium 3.9, chlorides 109, CO2 18, anion gap 12, BUN 74, creatinine 3.13. Glucose is 137. Calcium 8.4, magnesium 2.1. Progress note dated June 24, 2024. 78-year-old male seen today in room 371. The patient states that he is finally feeling a bit better. He continues on oxygen, by nasal cannula 2 L. Is not receiving any IV fluids. He does continue on Rocephin for blood culture positive for Streptococcus pneumoniae. The patient denies any worsening or more severe shortness of breath, cough, wheezing, chest tightness, or phlegm production. Current laboratory data includes a sodium 138, potassium 4, chlorides 107, CO2 19, anion gap 12, BUN 64, and creatinine 2.93. Glucose is 168, calcium 8.7, and magnesium 2.1. Progress note dated June 25, 2024. 78-year-old male seen in room 371. The patient seems to be doing better. He is on 2 L of oxygen. Saturations are 94 to 95%. The patient is currently receiving a prep, for a colonoscopy in the morning. The patient is not having any respiratory issues at this time. His white count is 19.1, hemoglobin 10.8, macro 35.9, and platelet count was normal. Sodium 135, potassium 4.8, chlorides 102, CO2 26, BUN 37, creatinine 1.40. Glucose is 129. Calcium is 8.2. No chest x-ray today. On 06/26/2024, the patient is being seen for a follow-up. He is feeling slightly improved compared to yesterday. The patient underwent an EGD today and the patient was found to have diaphragmatic hiatus at 40 cm, hiatal hernia 5 cm sliding-type and grade B erosive esophagitis. No duodenitis. No evidence of any acute bleeding. The patient is currently on room air oxygen with a pulse ox of 94%. He is being treated for a left lower lobe pneumococcal pneumonia with positive bacteremia. The patient was being treated with IV Rocephin. ID is on the case. Hemodynamically stable. Renal function has improved during this current admission creatinine is currently down to 2.7 as the patient has chronic stage IV kidney disease. Sodium is at 140, potassium is at 3.7. The white cell count is 5.2 with a hemoglobin of 7.7. The chest x-ray at time of admission showed a left lower lobe consolidation. Since then, the patient has not had any follow-up chest x-ray imaging. Nevertheless, no significant cough sputum production. No hemoptysis or pleurisy. No altered mentation. He is chronically debilitated and remains quite weak. The patient is currently off Eliquis. Hemoglobin is being monitored. On 06/27/2024, the patient remains on room air oxygen. No new complaints. No interval worsening shortness of breath. Remains on Symbicort. Remains on DuoNeb nebulized treatments [id number]. The patient received IV iron re garding his chronic anemia. He is also on torsemide 20 mg p.o. twice a day. Producing urine output. Rest of the medications are essentially unchanged. He remains on metoprolol 25 mg p.o. twice a day. He is still being treated for pneumococcal septicemia and the patient remains on IV Rocephin. Repeat chest x- ray from 06/27/2024 shows improvement in left lower lobe consolidation. There is cardiomegaly and some mild pulm vessel congestion. Clinically, improved and the patient is hemodynamically stable at this point in time. Nephrology on the case. Cardiology on the case. The patient remains on anticoagulation with Eliquis 2.5 mg p.o. twice a day. He is on amlodipine 5 mg p.o. daily for blood pressure control. On 06/29/2024, the patient is being seen for a follow-up. Overall condition is stable remains on IV Rocephin regarding the pneumococcal septicemia. The patient had a left lower lobe pneumonia with secondary sepsis. Remains on IV Rocephin. Remains on room air oxygen. No new complaints., Renal function remains stable. The patient feels weak and quite debilitated. Otherwise, his blood work shows a BUN of 33 with a creatinine 2.9. Sodium level is 141 with a potassium level of 3.8. Chloride is 107. The white cell count is 8.3 with a hemoglobin of 8.6. No altered mentation. He has diminished appetite. Nephrology on the case regarding his chronic stage IV kidney disease. He remains on Eliquis with 2.5 mg p.o. twice a day. Blood pressures under adequate control. Objective - Vital Signs Vital signs: Vital Signs Temp 97.5 F L 06/28/24 08:00 Pulse 88 06/28/24 08:18 Resp 18 06/28/24 08:00 BP 126/57 06/28/24 08:00 Pulse Ox 97 06/28/24 08:08 FiO2 40 06/21/24 13:35 Intake & Output 06/27/24 06/28/24 06/28/24 18:59 06:59 18:59 Intake Total 690 50 240 Output Total 650 Balance 690 50 -410 Weight 71.7 kg Intake: Intake, IV Titration 150 50 Amount Sodium Ferric Gluconat- 100 Sucrose 125 mg In Sodium Chloride 0.9% 100 ml @ 100 mls/hr IVPB DAILY JUMA Rx#:[id number] cefTRIAXone 2 gm In 50 50 Sodium Chloride 0.9% 50 ml @ 100 mls/hr IVPB Q24H JUMA Rx#:[id number] Oral 540 240 Output: Urine 650 Straight 650 Other: Voiding Method Toilet Toilet Bedside Commode Bedside Commode # Voids 2 # Bowel Movements 3 - Exam The patient appeared well nourished and normally developed. Vital signs as documented. Head exam is unremarkable. No scleral icterus or corneal arcus noted. Neck is without jugular venous distension, thyromegaly, or carotid bruits. Carotid upstrokes are brisk bilaterally. Lungs are are diminished bilaterally Cardiac exam reveals the PMI to be normally sized and situated. Rhythm is regular. First and second heart sounds normal. No murmurs, rubs or gallops. Abdominal exam reveals normal bowel sounds, no masses, no organomegaly and no aortic enlargement. Extremities are edematous and the patient has +1 pitting edema and both femoral and pedal pulses are normal. Examination of the skin revealed no evidence of significant rashes, suspicious appearing nevi or other concerning lesions. Neurologically, the patient is awake and alert and the patient does not have any focal neurological deficit. Cranial nerves are essentially intact. - Labs CBC & Chem 7: 06/27/24 07:58 06/28/24 12:21 Labs: Abnormal Lab Results - Last 24 Hours (Table) 06/27/24 06/27/24 06/28/24 Range/Units 16:09 20:34 06:07 POC Glucose (mg/dL) 180 H 211 H 199 H (70-110) mg/dL 06/28/24 Range/Units 11:25 POC Glucose (mg/dL) 214 H (70-110) mg/dL Assessment and Plan Plan: Acute hypoxemic respiratory failure, essentially secondary to a left lower lobe pneumococcal pneumonia, currently on room air oxygen. Clinically improved and the patient oxygenation is also improved, the patient remains on room air oxygen. The patient is still on IV Rocephin. Follow-up chest x-ray from 06/27/2024 shows cardiomegaly and mild pulm vascular congestion. No significant consolidation left lower lobe. Acute on chronic shortness of breath, improving Streptococcus pneumoniae bacteremia of the left lower lobe, currently on IV Rocephin, ID is on the case. The patient was bacteremic secondary to left lower lobe pneumonia. History of coronary artery disease, status post CABG. History of chronic atrial fibrillation, controlled rate, currently off anticoagulation History of hypertension. History of diabetes mellitus Chronic stage IV kidney disease, renal function is improving and nephrology is on the case History of chronic anxiety. Hyperlipidemia. 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 Hemodynamically stable. No signs of any septicemia. Continue IV Rocephin Repeat chest x-ray from today was noted and the patient has some mild cardiomegaly and pulm vessel congestion Oxygenation is improved and the patient is currently on room air oxygen The patient has developed an acute on top of chronic anemia. EGD was completed and patient has erosive esophagitis with a hiatal hernia. No evidence of any acute bleeding Continue IV iron Monitor renal function Patient currently on room air oxygen Continue torsemide Continue metoprolol Continue amlodipine Anticoagulation still on hold Continue Aranesp Amlodipine for blood pressure control Continue Pravachol continue Flomax IV Protonix Will follow
--- NOTE | 2024-06-28 16:04 | CDI ---
Date: 06/28/2024 From: Melly [email or web address] Email: [email or web address] Admit Date: 06/21/2024 01:05:00 AM Patient Name: Andrea Mensah Visit Number: [id number] Discharge Date: N/A ATTENTION: The Clinical Documentation Specialists (CDI) and [facility] Coding Staff appreciate your assistance in clarifying documentation. Please respond to the clarification below the line at the bottom and electronically sign. The CDI & [facility] Coding staff will review the response and follow-up if needed. Please note: Queries are made part of the Legal Health Record. If you have any questions, please contact the author of this message via ITS. Dr. Raj Walton, A clinical validation query regarding documentation of sepsis was answered by Dr. Barr on 06/28/2024: Streptococcus pneumoniae bacteremia with sepsis is a valid diagnosis as evidenced by the following (please add rationale): WBC of 13K and HR greater than 90 documented on multiple occasion in the chart. However, sepsis is not consistently noted in previous and/or subsequent documentation. Clarification is requested. History/Risk Factors: 78-year-old male presented to [facility] ED for evaluation due to progressive shortness of breath and weakness. PMH: Type 2 diabetes mellitus, stage 4 chronic kidney disease, permanent atrial fibrillation, hypertension, chronic combined systolic and diastolic heart failure, coronary artery disease Clinical Indicators: v Documentation Location: Electronic Medical Record Vital Sign Trend: Date Time Temperature HR RR BP SpO2 06/21/2024 01:14 98.7 F (Oral) 61 23 130/79 96% on BiPAP 06/21/2024 13:35 97.1 F (Axillary) 77-->112 17-->26 178/73 100% BiPAP 100% on 5L NC 6L NC 06/21/2024 20:00 97.7 F (Oral) 74 18 178/73 98% on 5L NC 06/22/2024 08:00 98.2 F (Oral) 67 17 138/103 99% on 5L NC 06/23/2024 08:11 98.3 F (Oral) 88 26 140/70 96% on 3L NC 06/24/2024 09:35 98.0 F (Oral) 86 22 121/50 98% on 2L NC 06/25/2024 08:10 98.3 F (Oral) 86 20 120/61 94% on 2L NC 06/26/2024 08:15 98.1 F (Oral) 89 18 124/66 100% on Room Air Lab Results: 06/20/2024 06/22/2024 06/23/2024 WBC 13.0 5.9 5.2 Other Clinical Indicators: Blood Cultures (Collected on 06/20/2024): Streptococcus pneumoniae Infectious Disease Consultation Note (06/22/2024): o Patient presented to hospital with sepsis in this patient who did have an elevated white count, tachycardia, meeting currently for SIRS, source of the left lower lobe pneumonia o Bacteremia Treatment: Infectious Disease Consultation Rocephin 2g IVPB Every 24 Hours Azithromycin 500mg Oral x 1 Please clarify if the sepsis is: [ ] After further review, sepsis has been ruled out [ + ] Sepsis (present on admission) confirmed, treated, and resolved [ ] Other condition, please specify [ ] Unable to determine SIRS Criteria (2 or more of the following may indicate SIRS): Temperature < 96.8F (36C) or > 101.0F (38.3C) Heart Rate > 90 bpm Respiratory Rate > 20 breaths/min or PaCO2 < 32 mmHg White Blood Cell Count > 12,000 or < 4,000 cells/mm3 or > 10% bands MTDD
[2024-06-28 16:52] VITALS: PULSE 92
--- NOTE | 2024-06-28 20:43 | P.DS ---
Providers Date of admission: 06/21/24 01:05 Expected date of discharge: 06/28/24 Attending physician: Raj Walton Consults: 06/21/24 05:21 Consult Physician Routine Consulting Provider: Benja Luu Consult Reason/Comments: chf, dialysis Do you want consulting provider notified?: Yes 06/21/24 08:30 Consult Physician Routine Consulting Provider: Blake Jay Consult Reason/Comments: hypoxia Do you want consulting provider notified?: Yes 06/22/24 13:20 Consult Physician Routine Consulting Provider: Mary Barr Consult Reason/Comments: bacteremia Do you want consulting provider notified?: Yes 06/28/24 07:04 Consult Physician Routine Consulting Provider: Darius Costello Consult Reason/Comments: Urinary retention/Difficulty voiding Do you want consulting provider notified?: Yes Primary care physician: [facility] Course: This is a pleasant 78 years old male with past medical history of multiple medical problems as below Presents because of fever and dyspnea and cough and chest pain x 2 weeks. 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 Hobson. However patient kept to get worse. He decided to come to the hospital Currently he is on BiPAP he is coughing through the BiPAP he states he has clear phlegm and also he is breathing fast more than 25 breaths/min. He denies chest pain currently. No abdominal pain or vomiting but reports he has diarrhea, he has 1 loose bowel movement yesterday and he had 1 loose and black bowel movement this morning. No urinary complaint he has dizziness but no headache weakness or numbness No history of smoking. However daily drinking of alcohol is reported, marijuana abuse is also recorded He is currently tachypneic, he had low-grade temperature 99.5. On admission he was saturating 91 on room air but currently BiPAP He has mild leukocytosis of 13,000, hemoglobin dropped to 8.3 with baseline about 10-11. Platelet count 144. Creatinine 3.0 with baseline 3-6. proBNP is elevated at 4500. Chest x-ray showing left lower lobe infiltrate suspicious for pneumonia EKG showing sinus rhythm at [address]-T changes. Patient started on ceftriaxone and Zithromax also he is on aspirin 81 mg. Last echocardiogram from 02/19/2024: Showed ejection fraction of 45 to 50% 06/22 Patient states his breathing is slightly better, he still on 5 L oxygen via nasal cannula He is afebrile with no chest pain or abdominal pain He still has black stool and occult blood was positive, hemoglobin dropped to 7.6. Suspicion of GI bleed is high therefore consulting surgery team as there i s no GI in this facility during this week He is already on IV Protonix twice daily. We are going to hold his aspirin 81 mg. If his hemoglobin drops less than 7 okay for monitoring of blood transfusion He is on Rocephin and Zithromax. Procalcitonin is elevated. Anemia workup is requested He denies history of alcohol although it was documented in the chart therefore we will discontinue CIWA protocol. 06/23 Patient slightly better breathing today he still tachypneic with breathing rate about 26 but has good oxygen saturation. No chest pain no abdominal pain He has dark brownish stool but not black. Hemoglobin stable today at 7.7. He got IV iron yesterday. aspirin remains on hold, he is on IV Protonix twice daily, Remains on antibiotic ceftriaxone and Zithromax. Blood culture positive for Streptococcus pneumonia Creatinine slightly worse today at 3.3. 06/24 Patient still feels very weak overall he is better than he came in, he is sitting at the side of the chair She he still quite tachypneic and short of breath he still has coarse crepitation with inspiration His creatinine slightly coming down to 0.9 Hemoglobin 7.7 with no more episodes of bloody stool. Aspirin remains on hold for now he is still getting IV Protonix He still on ceftriaxone with positive blood culture 06/25 Patient still feels short of breath, no chest pain. He still has scattered wheezing and coarse crepitation He is saturating low 90s on 2 L oxygen via nasal cannula He is advanced stage kidney disease but not on dialysis, has good urine output on torsemide Plan for EGD/colonoscopy tomorrow. From medical perspective he is at accelerated risk from the procedure due to his heart and kidney problem and heart failure but there is no absolute contraindication June 26: Underwent EGD colonoscopy by Dr. Mercado. Polyps were removed. Otherwise unremarkable. Ate well. Has a slight cough. No sputum. Overall feeling better. Pulse ox was checked it was 94% room air. Patient blood cultures positive for Streptococcus pneumoniae on June 20. Patient had been getting IV ceftriaxone. I do not see it in the [facility]. Will resume same. Increase activity. EGD: Erosive esophagitis. No stigmata of bleeding. Getting IV Ferrlecit. Resume Eliquis June 27: Breathing much better. Pulse ox 97% room air. Oral intake fair. Patient is rather concerned about his is also admitted on the same floor. Requesting 1 more i day in the hospital to sort out social issues including getting help at home. Patient is having some bleeding from his hemorrhoids. Anusol HC will be ordered. June 28: Hilario catheter to be reinserted. Patient does follow-up with Dr. Costello From urology. Will follow-up outpatient.. Patient follow-up with multiple consultants. Including cardiology pulmonary urology. Completed course of antibiotic. And follow-up nephrology Discussion and discharge planning more than 35 minutes On examination: VITAL SIGNS: 97.5, 89, 18, 126 x 57, 97% GENERAL APPEARANCE: BMI 24.8, comfortable HEENT: Normal external appearance of nose and ear. Oral cavity normal EYES: Pupils equal. Conjunctiva normal. NECK: JVD not raised. Mass not palpable. RESPIRATORY: Respiratory effort normal. Lungs decreased breath sound CARDIOVASCULAR: First and second sounds normal. No edema. ABDOMEN: Soft. Liver and spleen not palpable. No tenderness. No mass palpable. PSYCHIATRY: Alert and oriented x3. Mood and affect appeared anxious INVESTIGATIONS, reviewed in the clinical context: June 28: Potassium 3.8 creatinine 2.9 June 27: White count 8.3 hemoglobin 8.6 sodium 140 potassium 4 BUN 36 creatinine 2.94 June 26: Sodium 140 potassium 3.7 BUN 39 creatinine 2.71 June 20: Creatinine 3.03 Assessment plan: -Left lower lobe pneumonia, suspect gram-negative organism, with sepsis IV ceftriaxone. Complete 10 more days of Ceftin -Acute CHF exacerbation, which is suspected both systolic and diastolic dysfunction with slightly lowered ejection fraction, EF 45 to 50% per cardiology notes Received Lasix. Now on Demadex -Acute hypoxic respiratory failure secondary to above, resolved Initially required BiPAP. Now down to room air -Acute GI bleed is suspected with iron deficiency anemia. Normocytic anemia, chronic with recent worsening and black stool. EGD colonoscopy showing some esophagitis. Otherwise unremarkable. No stigmata of bleeding. Some polyps removed Protonix -Bacteremia with positive blood culture for Streptococcus pneumoniae: Improving IV ceftriaxone. Discharged on Ceftin -Chronic kidney disease stage IV secondary to diabetic nephropathy Nephrology following. -Diabetes mellitus, type II on oral hypoglycemic Follow Accu-Cheks -Essential hypertension Amlodipine 5 mg a day. Lopressor 25 mg twice daily -Metabolic acidosis secondary to chronic kidney disease. On oral sodium bicarbonate -Hyperlipidemia Pravachol -Bleeding hemorrhoids Anusol HC -Persistent atrial fibrillation, rate controlled Lopressor 25 twice daily. Eliquis when okay with surgery -Chronic fibromyalgia -Chronic low back pain and degenerative disc disease of the lumbar spine. -Full code Disposition: Home Plan - Discharge Summary Discharge Rx Participant: No New Discharge Prescriptions: New Ipratropium-Albuterol Nebulize [Duoneb 0.5 mg-3 mg/3 ml Soln] 3 ml INHALATION TID #90 each Pantoprazole [Protonix] 40 mg PO AC-BRKFST #30 tab Cefuroxime [Ceftin] 250 mg PO BID #20 tab Hydrocortisone [Anusol-Hc] 1 applic RECTAL DAILY #30 gm Continue Tamsulosin HCl [Flomax] 0.4 mg PO BID Nitroglycerin Sl Tabs [Nitrostat] 0.4 mg SL Q5M PRN PRN Reason: Chest Pain amLODIPine [Norvasc] 5 mg PO QAM glyBURIDE [Diabeta] 2.5 mg PO Q3D Azelastine HCl [Astelin Nasal [place]] 1 spray EA NOSTRIL BID Sodium Bicarbonate Tab 650 mg PO HS Apixaban [Eliquis] 2.5 mg PO BID Mv-Min/Folic/K1/Lycopen/Lutein [Centrum Silver Men Tablet] 1 tab PO DAILY Metoprolol Tartrate [Lopressor] 25 mg PO BID Pravastatin Sodium [Pravachol] 40 mg PO HS Budesonide/Formoterol Fumarate [Symbicort 160-4.5 Mcg Inhaler] 2 puff INHALATION RT-BID Changed Torsemide [Demadex] 20 mg PO DAILY #0 Discontinued Aspirin EC [Ecotrin Low Dose] 81 mg PO QAM Docusate [Colace] 100 mg PO HS Losartan [Cozaar] 25 mg PO DAILY Discharge Medication List Metoprolol Tartrate [Lopressor] 25 mg PO BID 02/11/22 [History] Nitroglycerin Sl Tabs [Nitrostat] 0.4 mg SL Q5M PRN 02/11/22 [History] Pravastatin Sodium [Pravachol] 40 mg PO HS 02/11/22 [History] Tamsulosin HCl [Flomax] 0.4 mg PO BID 02/11/22 [History] amLODIPine [Norvasc] 5 mg PO QAM 03/18/22 [History] Budesonide/Formoterol Fumarate [Symbicort 160-4.5 Mcg Inhaler] 2 puff INHALATION RT-BID 06/05/22 [History] glyBURIDE [Diabeta] 2.5 mg PO Q3D 11/02/22 [History] Apixaban [Eliquis] 2.5 mg PO BID 06/21/24 [History] Azelastine HCl [Astelin Nasal [place]] 1 spray EA NOSTRIL BID 06/21/24 [History] Mv-Min/Folic/K1/Lycopen/Lutein [Centrum Silver Men Tablet] 1 tab PO DAILY 06/21/24 [History] Sodium Bicarbonate Tab 650 mg PO HS 06/21/24 [History] Cefuroxime [Ceftin] 250 mg PO BID #20 tab 06/26/24 [Rx] Hydrocortisone [Anusol-Hc] 1 applic RECTAL DAILY #30 gm 06/27/24 [Rx] Ipratropium-Albuterol Nebulize [Duoneb 0.5 mg-3 mg/3 ml Soln] 3 ml INHALATION TID #90 each 06/27/24 [Rx] Torsemide [Demadex] 20 mg PO DAILY #0 06/27/24 [Rx] Pantoprazole [Protonix] 40 mg PO AC-BRKFST #30 tab 06/28/24 [Rx] Follow up Appointment(s)/Referral(s): Lindsay Rodriguez MD [STAFF PHYSICIAN] - 2 Weeks (Please call office to set up appointment) [facility] [REFERRING] - Erasmo Downs MD [Primary Care Provider] - 1-2 days (office will call you with appointment date and time) Mary Barr MD [STAFF PHYSICIAN] - 07/10/24 3:00 pm Kevin Cortés MD [STAFF PHYSICIAN] - 06/30/24 2:00 pm Darius Costello MD [STAFF PHYSICIAN] - 07/12/24 1:40 pm () Rony Villalpando MD [STAFF PHYSICIAN] - 07/11/24 10:00 am Patient Instructions/Handouts: Urinary Retention in Men (GEN), Pneumonia (DC) Activity/Diet/Wound Care/Special Instructions: cbc/bmp - 3 days Discharge/Stand Alone Forms: AA [facility], Who Do I Call?, Community Resources, Outpatient Counseling, Inp Substance Abuse Facilities, Area PCPs Discharge Disposition: HOME SELF-CARE
== END 2024-06-28 17:24 | disposition home or self-care (01) | DRG 871 ==
LOC: EC 21:49 → 3SCARD 06-21 01:05
PROVIDERS: ADMIT Hospitalist; ATTEND Hospitalist
PROC: 0DBL8ZX Excision of Transverse Colon, Via Natural or Artificial Opening Endoscopic, Diagnostic (ICD-10-PCS; principal; 2024-06-26 10:15)
PROC: 0DJ08ZZ Inspection of Upper Intestinal Tract, Via Natural or Artificial Opening Endoscopic (ICD-10-PCS; principal; 2024-06-26 10:15)
PROC: 0DBM8ZX Excision of Descending Colon, Via Natural or Artificial Opening Endoscopic, Diagnostic (ICD-10-PCS; principal; 2024-06-26 10:15)
PROC: 0DBK8ZX Excision of Ascending Colon, Via Natural or Artificial Opening Endoscopic, Diagnostic (ICD-10-PCS; principal; 2024-06-26 10:15)
DX: A40.3 Sepsis due to Streptococcus pneumoniae (principal); I50.43 Acute on chronic combined systolic (congestive) and diastolic (congestive) heart failure; J13 Pneumonia due to Streptococcus pneumoniae; J96.01 Acute respiratory failure with hypoxia; K22.11 Ulcer of esophagus with bleeding; N17.0 Acute kidney failure with tubular necrosis; I13.0 Hypertensive heart and chronic kidney disease with heart failure and stage 1 through stage 4 chronic kidney disease, or unspecified chronic kidney disease; N18.4 Chronic kidney disease, stage 4 (severe); E11.22 Type 2 diabetes mellitus with diabetic chronic kidney disease; F12.10 Cannabis abuse, uncomplicated; D63.1 Anemia in chronic kidney disease; D50.0 Iron deficiency anemia secondary to blood loss (chronic); I48.21 Permanent atrial fibrillation; E87.20 Acidosis, unspecified; E78.5 Hyperlipidemia, unspecified; E87.6 Hypokalemia; F41.9 Anxiety disorder, unspecified; G89.29 Other chronic pain; I25.10 Atherosclerotic heart disease of native coronary artery without angina pectoris; D12.2 Benign neoplasm of ascending colon; D12.4 Benign neoplasm of descending colon; D12.3 Benign neoplasm of transverse colon; K21.9 Gastro-esophageal reflux disease without esophagitis; K44.9 Diaphragmatic hernia without obstruction or gangrene; K57.30 Diverticulosis of large intestine without perforation or abscess without bleeding; K64.8 Other hemorrhoids; M51.360 Other intervertebral disc degeneration, lumbar region with discogenic back pain only; M79.7 Fibromyalgia; N40.1 Benign prostatic hyperplasia with lower urinary tract symptoms; T50.2X5A Adverse effect of carbonic-anhydrase inhibitors, benzothiadiazides and other diuretics, initial encounter; I44.0 Atrioventricular block, first degree; R33.8 Other retention of urine; R04.0 Epistaxis; Z20.822 Contact with and (suspected) exposure to COVID-19; Z79.84 Long term (current) use of oral hypoglycemic drugs; Z79.01 Long term (current) use of anticoagulants; Z79.51 Long term (current) use of inhaled steroids; Z79.82 Long term (current) use of aspirin; Z79.899 Other long term (current) drug therapy; Z87.01 Personal history of pneumonia (recurrent); Z95.1 Presence of aortocoronary bypass graft; Z28.310 Unvaccinated for COVID-19; Z71.3 Dietary counseling and surveillance; Z88.1 Allergy status to other antibiotic agents; Z88.2 Allergy status to sulfonamides; Z88.8 Allergy status to other drugs, medicaments and biological substances
CPT/HCPCS: 36415; 43235; 45385; 71045; 71046; 80048; 80053; 82272; 82607; 82728; 82746; 83540; 83550; 83605; 83735; 83880; 84132; 84145; 84484; 85025; 85027; 85610; 85730; 87040; 87077; 87186; 87449; 87636; 88305; 93005; 94640; 94660; 94760; 96365; 96366; 96375; 99285

== ENCOUNTER 2024-07-01 02:11 | Emergency (ER) | payer MEDICARE ==
--- NOTE | 2024-07-01 02:36 | ED ---
General Adult HPI - General Chief complaint: Urogenital Stated complaint: Urinary retention Time Seen by Provider: 07/01/24 02:15 Source: patient, RN notes reviewed, old records reviewed Mode of arrival: wheelchair Limitations: no limitations - History of Present Illness Initial comments: 78-year-old male presenting with painful urination, and lower abdominal discomfort, pressure sensation. Patient states he is had difficulty urinating and is following with urology for prostate infection. He received a course of antibiotics and states his symptoms were somewhat improved but he has had a difficult time emptying his bladder and believes he is retaining urine. No fever. No vomiting. - Related Data Home Medications Medication Instructions Recorded Confirmed Metoprolol Tartrate [Lopressor] 25 mg PO BID 02/11/22 06/21/24 Nitroglycerin Sl Tabs [Nitrostat] 0.4 mg SL Q5M PRN 02/11/22 06/21/24 Pravastatin Sodium [Pravachol] 40 mg PO HS 02/11/22 06/21/24 Tamsulosin HCl [Flomax] 0.4 mg PO BID 02/11/22 06/21/24 amLODIPine [Norvasc] 5 mg PO QAM 03/18/22 06/21/24 Budesonide/Formoterol Fumarate 2 puff INHALATION RT-BID 06/05/22 06/21/24 [Symbicort 160-4.5 Mcg Inhaler] glyBURIDE [Diabeta] 2.5 mg PO Q3D 11/02/22 06/21/24 Apixaban [Eliquis] 2.5 mg PO BID 06/21/24 06/21/24 Azelastine HCl [Astelin Nasal 1 spray EA NOSTRIL BID 06/21/24 06/21/24 [place]] Mv-Min/Folic/K1/Lycopen/Lutein 1 tab PO DAILY 06/21/24 06/21/24 [Centrum Silver Men Tablet] Sodium Bicarbonate Tab 650 mg PO HS 06/21/24 06/21/24 Previous Rx's Medication Instructions Recorded Cefuroxime [Ceftin] 250 mg PO BID #20 tab 06/26/24 Hydrocortisone [Anusol-Hc] 1 applic RECTAL DAILY #30 gm 06/27/24 Ipratropium-Albuterol Nebulize 3 ml INHALATION TID #90 each 06/27/24 [Duoneb 0.5 mg-3 mg/3 ml Soln] Torsemide [Demadex] 20 mg PO DAILY #0 06/27/24 Pantoprazole [Protonix] 40 mg PO AC-BRKFST #30 tab 06/28/24 Amoxic-Pot Clav 875-125Mg 1 tab PO Q12HR 10 Days #20 tab 07/01/24 [Augmentin 875-125] Allergies Allergy/AdvReac Type Severity Reaction Status Date / Time duloxetine [From Cymbalta] Allergy Rash/Hives Verified 07/01/24 02:15 enalaprilat [From Vasotec] Allergy Unknown Verified 07/01/24 02:15 levofloxacin [From Levaquin] Allergy Rash/Hives Verified 07/01/24 02:15 saxagliptin [From Onglyza] Allergy Rash/Hives Verified 07/01/24 02:15 sulfamethoxazole Allergy Rash/Hives Verified 07/01/24 02:15 [From Bactrim] trimethoprim [From Bactrim] Allergy Rash/Hives Verified 07/01/24 02:15 Review of Systems ROS Statement: Those systems with pertinent positive or pertinent negative responses have been documented in the HPI. ROS Other: All systems not noted in ROS Statement are negative. Past Medical History Past Medical History: Atrial Fibrillation, Coronary Artery Disease (CAD), Diabetes Mellitus, Dialysis, Hypertension, Prostate Disorder, Renal Disease Additional Past Medical History / Comment(s): Dialysis Mon, Wed, Fri History of Any Multi-Drug Resistant Organisms: None Reported Past Surgical History: Cholecystectomy, Coronary Bypass/CABG Additional Past Surgical History / Comment(s): 07 ACL ligament replacement, CABG 3 vessel Past Anesthesia/Blood Transfusion Reactions: No Reported Reaction Past Psychological History: Anxiety Smoking Status: Never smoker Past Alcohol Use History: None Reported Past Drug Use History: None Reported - Past Family History Father Family Medical History: Cancer Additional Family Medical History / Comment(s): pancreatic General Exam Limitations: no limitations General appearance: alert, anxious Head exam: Present: atraumatic, normocephalic Eye exam: Present: normal appearance, PERRL Respiratory exam: Present: normal lung sounds bilaterally. Absent: respiratory distress, wheezes Cardiovascular Exam: Present: regular rate, normal rhythm GI/Abdominal exam: Present: soft, distended, tenderness (Suprapubic) Extremities exam: Present: normal inspection, normal capillary refill Neurological exam: Present: alert, oriented X3, CN II-XII intact. Absent: motor sensory deficit Psychiatric exam: Present: anxious Skin exam: Present: warm, dry, intact Course Vital Signs 07/01/24 07/01/24 02:13 02:30 Temperature 97.8 F 97.3 F L Pulse Rate 89 74 Respiratory 20 19 Rate Blood Pressure 129/66 144/75 O2 Sat by Pulse 98 95 Oximetry Medical Decision Making - Medical Decision Making Was pt. sent in by a medical professional or institution (, [facility], [facility]IRE [employer]ELER, urgent care, hospital, or longterm...) When possible be specific @ -No Did you speak to anyone other than the patient for history (EMS, parent, family, police, friend...)? What history was obtained from this source @ -No Did you review nursing and triage notes (agree or disagree)? Why? @ -I reviewed and agree with nursing and triage notes Were old charts reviewed (outside hosp., previous admission, EMS record, old EKG, old radiological studies, urgent care reports/EKG's, longterm records)? Report findings @ -No old charts were reviewed Differential Diagnosis: Urinary retention, UTI, hematuria, prostatitis EKG interpreted by me (3pts min.). @ -As above X-rays interpreted by me (1pt min.). @ -None done CT interpreted by me (1pt min.). @ -None done U/S interpreted by me (1pt. min.). @ -None done What testing was considered but not performed or refused? (CT, X-rays, U/S, labs)? Why? @ -None What meds were considered but not given or refused? Why? @ -None Did you discuss the management of the patient with other professionals (professionals i.e. [facility] Kebede, WIRE WHEELER, lab, RT, psych nurse, social service coordinator, emergency room rn, teacher, botanical technical officer, embedded case manager)? Give summary @ -No Was smoking cessation discussed for >3mins.? @ -No Was critical care preformed (if so, how long)? @ -No Were there social determinants of health that impacted care today? How? (Homelessness, low income, unemployed, alcoholism, drug addiction, transportation, low edu. Level, literacy, decrease access to med. care, usp, rehab)? @ -No Was there de-escalation of care discussed even if they declined (Discuss DNR or withdrawal of care, Hospice)? DNR status @ -No What co-morbidities impacted this encounter? (DM, HTN, Smoking, COPD, CAD, Cancer, CVA, ARF, Chemo, Hep., AIDS, mental health diagnosis, sleep apnea, morbid obesity)? @ -None Was patient admitted / discharged? Hospital course, mention meds given and route, prescriptions, significant lab abnormalities, going to OR and other pert inent info. @ -[78-year-old male with lower abdominal pressure, urinary retention. Hilario catheter was placed with resolution of symptoms. Urinalysis and urine culture is obtained. Patient started on antibiotics and will follow-up with urology due to recent prostatitis diagnosis. Undiagnosed new problem with uncertain prognosis? @ -No Drug Therapy requiring intensive monitoring for toxicity (Heparin, Nitro, Insulin, Cardizem)? @ -No Were any procedures done? @ -No Diagnosis/symptom? @ -Urinary retention Acute, or Chronic, or Acute on Chronic? @ -Acute Uncomplicated (without systemic symptoms) or Complicated (systemic symptoms)? @ -Default Side effects of treatment? @ -No Exacerbation, Progression, or Severe Exacerbation? @ -No Poses a threat to life or bodily function? How? (Chest pain, [place], ID, pneumonia, PE, COPD, DKA, ARF, appy, cholecystitis, CVA, Diverticulitis, Homicidal, Suicidal, threat to staff... and all critical care pts) @ -No - Lab Data Lab Results 07/01/24 Range/Units 02:56 Urine Color Colorless Urine Appearance Clear (Clear) Urine pH 6.0 (5.0-8.0) Ur Specific [place] 1.009 (1.001-1.035) Urine Protein Trace H (Negative) Urine Glucose (UA) Negative (Negative) Urine Ketones Negative (Negative) Urine Blood Small H (Negative) Urine Nitrite Negative (Negative) Urine Bilirubin Negative (Negative) Urine Urobilinogen <2.0 (<2.0) mg/dL Ur Leukocyte Esterase Negative (Negative) Urine RBC 8 H (0-5) /hpf Urine WBC 2 (0-5) /hpf Urine Bacteria Rare H (None) /hpf Hyaline Casts 3 H (0-2) /lpf Urine Yeast (Budding) Rare H (None) /hpf Disposition Clinical Impression: Urinary retention Disposition: HOME SELF-CARE Condition: Fair Instructions (If sedation given, give patient instructions): Urinary Retention in Men (ED) Prescriptions: Amoxic-Pot Clav 875-125Mg [Augmentin 875-125] 1 tab PO Q12HR 10 Days #20 tab Is patient prescribed a controlled substance at d/c from ED?: No Referrals: Erasmo Downs MD [Primary Care Provider] - 1-2 days Darius Costello MD [STAFF PHYSICIAN] - 1-2 days Time of Disposition: 03:03
[2024-07-01 02:48] VITALS: TEMP 97.3
[2024-07-01] MEDS: AMOXIC-POT CLAV 875-125MG 1 EACH TAB PO STA (02:52)
[2024-07-01 03:18] LABS: Appearance,Urine Clear (Clear); Bacteria,Urine Rare /hpf; Bilirubin,Urine Negative (Negative); Blood,Urine Small (Negative); Budding Yeast,Urine Rare /hpf; Color,Urine Colorless; Glucose,Urine (UA) Negative (Negative); Hyaline Casts,Urine 3 /lpf (0-2); Ketones,Urine Negative (Negative); Leukocyte Esterase,Urine Negative (Negative); Nitrite,Urine Negative (Negative); Protein,Urine Trace (Negative); RBC,Urine 8 /hpf (0-5); Specific Gravity,Urine 1.009 (1.001-1.035); Urobilinogen,Urine <2.0 mg/dL (<2.0); WBC,Urine 2 /hpf (0-5)
[2024-07-01 03:35] VITALS: BP 131/68; PULSE 64; RESP 18
== END 2024-07-01 03:46 | disposition home or self-care (01) ==
LOC: EC 02:11
DX: R33.9 Retention of urine, unspecified (principal); Z88.1 Allergy status to other antibiotic agents; Z88.2 Allergy status to sulfonamides; Z88.6 Allergy status to analgesic agent; Z88.8 Allergy status to other drugs, medicaments and biological substances
CPT/HCPCS: 51702; 51798; 81001; 99283

== ENCOUNTER 2024-07-04 14:17 | Inpatient (IN) | payer MEDICARE ==
[2024-07-04 15:31] LABS: Basophils # (A) 0.04 10*3/uL (0.00-0.10); Basophils % (A) 0.5 %; Eosinophils # (A) 0.02 10*3/uL (0.04-0.35); Eosinophils % (A) 0.2 %; HCT 28.1 % (39.6-50.0); HGB 9.1 g/dL (13.0-17.0); Lymphocytes % (A) 9.3 %; MCH 31.5 pg (27.0-32.0); MCHC 32.4 g/dL (32.0-37.0); MCV 97.2 fL (80.0-97.0); Mean Platelet Volume 10.3 fL (9.5-12.2); Monocytes # (A) 0.61 10*3/uL (0.20-1.00); Monocytes % (A) 7.1 %; Neutrophils # (A) 7.14 10*3/uL (1.80-7.70); Neutrophils % (A) 82.7 %; Platelet Count 243 10*3/uL (140-440); RBC 2.89 10*6/uL (4.40-5.60); RDW 19.2 % (11.5-14.5); WBC 8.63 10*3/uL (4.50-10.00)
[2024-07-04 15:38] LABS: INR 1.2 (<1.2); Partial Thromboplastin Time 35.4 sec (22.0-30.0)
[2024-07-04 15:46] LABS: ALT 25 U/L (4-49); AST 27 U/L (17-59); African American GFR (CKD) 29 (>60 ml/min/1.73 sqM); Albumin 3.3 g/dL (3.5-5.0); Alkaline Phosphatase 75 U/L (38-126); Anion Gap 11 mmol/L; Blood Urea Nitrogen 37 mg/dL (9-20); Calcium 8.1 mg/dL (8.4-10.2); Carbon Dioxide 23 mmol/L (22-30); Chloride 105 mmol/L (98-107); Glucose 150 mg/dL (74-99); Magnesium 1.8 mg/dL (1.6-2.3); Non-African American GFR(CKD) 25 (>60 ml/min/1.73 sqM); Potassium 3.5 mmol/L (3.5-5.1); Sodium 139 mmol/L (137-145); Total Protein 6.5 g/dL (6.3-8.2)
--- NOTE | 2024-07-04 15:59 | XR ---
EXAMINATION TYPE: XR chest 2V DATE OF EXAM: 07/04/2024 CLINICAL INDICATION: Male, 78 years old with history of difficulty breathing, TECHNIQUE: Frontal and lateral views of the chest are obtained. COMPARISON: Chest x-ray one week ago. FINDINGS: Overlying sternal wires and mediastinal clips are redemonstrated. Persistent cardiomegaly w ith small bilateral pleural effusions on current study. No suspicious focal airspace opacity or pneum othorax. [id number] multilevel chronic compression type fractures are present IMPRESSION: Findings are consistent with CHF exacerbation. Correlate clinically. [facility], , 07/04/2024 3:57 PM
--- NOTE | 2024-07-04 16:01 | ED ---
General Adult HPI - General Chief complaint: Recheck/Abnormal Lab/Rx Stated complaint: Diarrhea Time Seen by Provider: 07/04/24 14:25 Source: patient, EMS, RN notes reviewed, old records reviewed Mode of arrival: EMS Limitations: no limitations - History of Present Illness Initial comments: This is an 78-year-old male who presents to the emergency department stating that he was in the hospital last week for pneumonia and he believes he was sent home too early because he is been short of breath ever since. Patient states he felt more short of breath today he is also noticed he is increased coughing. Patient denies any fever but states he has had the chills occasionally. Patient denies chest pain or palpitation. Patient has abdominal pain patient has nausea vomiting diarrhea. Patient states the swelling in his legs is unchanged. - Related Data Home Medications Medication Instructions Recorded Confirmed Metoprolol Tartrate [Lopressor] 25 mg PO BID 02/11/22 06/21/24 Nitroglycerin Sl Tabs [Nitrostat] 0.4 mg SL Q5M PRN 02/11/22 06/21/24 Pravastatin Sodium [Pravachol] 40 mg PO HS 02/11/22 06/21/24 Tamsulosin HCl [Flomax] 0.4 mg PO BID 02/11/22 06/21/24 amLODIPine [Norvasc] 5 mg PO QAM 03/18/22 06/21/24 Budesonide/Formoterol Fumarate 2 puff INHALATION RT-BID 06/05/22 06/21/24 [Symbicort 160-4.5 Mcg Inhaler] glyBURIDE [Diabeta] 2.5 mg PO Q3D 11/02/22 06/21/24 Apixaban [Eliquis] 2.5 mg PO BID 06/21/24 06/21/24 Azelastine HCl [Astelin Nasal 1 spray EA NOSTRIL BID 06/21/24 06/21/24 [place]] Mv-Min/Folic/K1/Lycopen/Lutein 1 tab PO DAILY 06/21/24 06/21/24 [Centrum Silver Men Tablet] Sodium Bicarbonate Tab 650 mg PO HS 06/21/24 06/21/24 Previous Rx's Medication Instructions Recorded Cefuroxime [Ceftin] 250 mg PO BID #20 tab 06/26/24 Hydrocortisone [Anusol-Hc] 1 applic RECTAL DAILY #30 gm 04/01/25 Ipratropium-Albuterol Nebulize 3 ml INHALATION TID #90 each 06/27/24 [Duoneb 0.5 mg-3 mg/3 ml Soln] Torsemide [Demadex] 20 mg PO DAILY #0 06/27/24 Pantoprazole [Protonix] 40 mg PO AC-BRKFST #30 tab 06/28/24 Amoxic-Pot Clav 875-125Mg 1 tab PO Q12HR 10 Days #20 tab 07/01/24 [Augmentin 875-125] Allergies Allergy/AdvReac Type Severity Reaction Status Date / Time duloxetine [From Cymbalta] Allergy Rash/Hives Verified 07/04/24 14:23 enalaprilat [From Vasotec] Allergy Unknown Verified 07/04/24 14:23 levofloxacin [From Levaquin] Allergy Rash/Hives Verified 07/04/24 14:23 saxagliptin [From Onglyza] Allergy Rash/Hives Verified 07/04/24 14:23 sulfamethoxazole Allergy Rash/Hives Verified 07/04/24 14:23 [From Bactrim] trimethoprim [From Bactrim] Allergy Rash/Hives Verified 07/04/24 14:23 Review of Systems ROS Statement: Those systems with pertinent positive or pertinent negative responses have been documented in the HPI. ROS Other: All systems not noted in ROS Statement are negative. Past Medical History Past Medical History: Atrial Fibrillation, Coronary Artery Disease (CAD), Diabetes Mellitus, Dialysis, Hypertension, Prostate Disorder, Renal Disease Additional Past Medical History / Comment(s): Dialysis Mon, Wed, Wed History of Any Multi-Drug Resistant Organisms: None Reported Past Surgical History: Cholecystectomy, Coronary Bypass/CABG Additional Past Surgical History / Comment(s): ACL ligament replacement, CABG 3 vessel Past Anesthesia/Blood Transfusion Reactions: No Reported Reaction Past Psychological History: Anxiety Smoking Status: Never smoker Past Alcohol Use History: None Reported Past Drug Use History: None Reported - Past Family History Father Family Medical History: Cancer Additional Family Medical History / Comment(s): pancreatic General Exam - General Exam Comments Initial Comments: GENERAL: Patient is well-developed and well-nourished. Patient is nontoxic and well- hydrated and is in mild distress. ENT: Neck is soft and supple. No significant lymphadenopathy is noted. Oropharynx is clear. Moist mucous membranes. Neck has full range of motion without eliciting any pain. EYES: The sclera were anicteric and conjunctiva were pink and moist. Extraocular movements were intact and pupils were equal round and reactive to light. Ey elids were unremarkable. PULMONARY: Unlabored respirations. Good breath sounds bilaterally. No audible rales rhonchi or wheezing was noted. CARDIOVASCULAR: There is a regular rate and rhythm without any murmurs gallops or rubs. ABDOMEN: Soft and nontender with normal bowel sounds. SKIN: Skin is clear with no lesions or rashes and otherwise unremarkable. NEUROLOGIC: Patient is alert and oriented x3. Cranial nerves II through XII are grossly intact. Motor and sensory are also intact. Normal speech, volume and content. Symmetrical smile. MUSCULOSKELETAL: Normal extremities with adequate strength and full range of motion. 2+ bilaterally LYMPHATICS: No significant lymphadenopathy is noted PSYCHIATRIC: Normal psychiatric evaluation. Limitations: no limitations Course Vital Signs 07/04/24 14:19 Temperature 97.8 F Pulse Rate 78 Respiratory 20 Rate Blood Pressure 132/92 O2 Sat by Pulse 94 L Oximetry Medical Decision Making - Medical Decision Making EKG is interpreted by myself. EKG shows sinus rhythm with multiple PACs at 75 b pm TN interval is 296 QRS is 105 QT interval is 404 QTc is 434. Patient's EKG shows no ST segment elevation or depression. Was pt. sent in by a medical professional or institution ([facility], [facility], urgent care, hospital, or snf...) When possible be specific @ -No Did you speak to anyone other than the patient for history (EMS, parent, family, police, friend...)? What history was obtained from this source @ -No Did you review nursing and triage notes (agree or disagree)? Why? @ -I reviewed and agree with nursing and triage notes Were old charts reviewed (outside hosp., previous admission, EMS record, old EKG, old radiological studies, urgent care reports/EKG's, snf records)? Report findings @ -No old charts were reviewed Differential Diagnosis? @ -Differential Dyspnea: Coronary syndrome, arrhythmia, tamponade, asthma, COPD, pulmonary embolism, pneumonia, pneumothorax, pulmonary effusion, anaphylaxis, diabetic ketoacidosis, flailed chest, pulmonary contusion, diaphragmatic rupture, anemia, neuromuscular, this is not meant to be an all-inclusive list. EKG interpreted by me (3pts min.). @ -As above X-rays interpreted by me (1pt min.). @ -Chest x-ray is consistent with pulmonary edema CT interpreted by me (1pt min.). @ -None done U/S interpreted by me (1pt. min.). @ -None done What testing was considered but not performed or refused? (CT, X-rays, U/S, labs)? Why? @ -None What meds were considered but not given or refused? Why? @ -None Did you discuss the management of the patient with other professionals (professionals i.e. DrBhavna, PA, [facility], lab, RT, psych nurse, social science research assistant, irrigation specialist, teacher, crime prevention police officer, correctional casework specialist)? Give summary @ -I spoke with Dr. Walton he agreed to admit the patient admit the patient wrote admitting orders Was smoking cessation discussed for >3mins.? @ -No Was critical care preformed (if so, how long)? @ -35 minutes Were there social determinants of health that impacted care today? How? (Homelessness, low income, unemployed, alcoholism, drug addiction, transportation, low edu. Level, literacy, decrease access to med. care, half-way, rehab)? @ -No Was there de-escalation of care discussed even if they declined (Discuss DNR or withdrawal of care, Hospice)? DNR status @ -No What co-morbidities impacted this encounter? (DM, HTN, Smoking, COPD, CAD, Cancer, CVA, ARF, Chemo, Hep., AIDS, mental health diagnosis, sleep apnea, mo rbid obesity)? @ -None Was patient admitted / discharged? Hospital course, mention meds given and ro bhaskar, prescriptions, significant lab abnormalities, going to OR and other pertinent info. @ -Patient was given Lasix and Nitropaste in the emergency department. Patient will be admitted to Dr. Walton. Undiagnosed new problem with uncertain prognosis? @ -No Drug Therapy requiring intensive monitoring for toxicity (Heparin, Nitro, Insulin, Cardizem)? @ -No Were any procedures done? @ -No Diagnosis/symptom? @ -Pulmonary edema Acute, or Chronic, or Acute on Chronic? @ -Acute Uncomplicated (without systemic symptoms) or Complicated (systemic symptoms)? @ -Complicated Side effects of treatment? @ -No Exacerbation, Progression, or Severe Exacerbation? @ -No Poses a threat to life or bodily function? How? (Chest pain, USA, ID, pneumonia, PE, COPD, DKA, ARF, appy, cholecystitis, CVA, Diverticulitis, Homicidal, Suicidal, threat to staff... and all critical care pts) @ -Yes this can lead to hypoxia and endorgan dysfunction - Lab Data Result diagrams: 07/04/24 15:17 07/04/24 15:17 Lab Results 07/04/24 07/04/24 07/04/24 Range/Units 15:17 15:17 15:17 WBC 8.63 (4.50-10.00) 10*3/uL RBC 2.89 L (4.40-5.60) 10*6/uL Hgb 9.1 L (13.0-17.0) g/dL Hct 28.1 L (39.6-50.0) % MCV 97.2 H (80.0-97.0) fL MCH 31.5 (27.0-32.0) pg MCHC 32.4 (32.0-37.0) g/dL Plt Count 243 (140-440) 10*3/uL MPV 10.3 (9.5-12.2) fL Immature Gran % (Auto) 0.2 % Neutrophils % 82.7 % Lymphocytes % 9.3 % Monocytes % 7.1 % Eosinophils % 0.2 % Basophils % 0.5 % Immature Gran # 0.02 (0.00-0.04) 10*3/uL Neutrophils # 7.14 (1.80-7.70) 10*3/uL Lymphocytes # 0.80 L (0.90-5.00) 10*3/uL Monocytes # 0.61 (0.20-1.00) 10*3/uL Eosinophils # 0.02 L (0.04-0.35) 10*3/uL Basophils # 0.04 (0.00-0.10) 10*3/uL PT 13.0 H (10.0-12.5) sec INR 1.2 H (<1.2) APTT 35.4 H (22.0-30.0) sec Sodium 139 (137-145) mmol/L Potassium 3.5 (3.5-5.1) mmol/L Chloride 105 (98-107) mmol/L Carbon Dioxide 23 (22-30) mmol/L Anion Gap 11 mmol/L BUN 37 H (9-20) mg/dL Creatinine 2.35 H (0.66-1.25) mg/dL Est GFR (CKD-EPI)AfAm 29 (>60 ml/min/1.73 sqM) Est GFR (CKD-EPI)NonAf 25 (>60 ml/min/1.73 sqM) Glucose 150 H (74-99) mg/dL Plasma Lactic Acid Sawyer (0.7-2.0) mmol/L Calcium 8.1 L (8.4-10.2) mg/dL Magnesium 1.8 (1.6-2.3) mg/dL Total Bilirubin 1.0 (0.2-1.3) mg/dL AST 27 (17-59) U/L ALT 25 (4-49) U/L Alkaline Phosphatase 75 (38-126) U/L Troponin I (0.000-0.034) ng/mL NT-Pro-B Natriuret Pep 35411 pg/mL Total Protein 6.5 (6.3-8.2) g/dL Albumin 3.3 L (3.5-5.0) g/dL Influenza Type A (PCR) (Not Detectd) Influenza Type B (PCR) (Not Detectd) RSV (PCR) (Not Detectd) SARS-CoV-2 (PCR) (Not Detectd) 07/04/24 07/04/24 07/04/24 Range/Units 15:17 15:17 15:17 WBC (4.50-10.00) 10*3/uL RBC (4.40-5.60) 10*6/uL Hgb (13.0-17.0) g/dL Hct (39.6-50.0) % MCV (80.0-97.0) fL MCH (27.0-32.0) pg MCHC (32.0-37.0) g/dL Plt Count (140-440) 10*3/uL MPV (9.5-12.2) fL Immature Gran % (Auto) % Neutrophils % % Lymphocytes % % Monocytes % % Eosinophils % % Basophils % % Immature Gran # (0.00-0.04) 10*3/uL Neutrophils # (1.80-7.70) 10*3/uL Lymphocytes # (0.90-5.00) 10*3/uL Monocytes # (0.20-1.00) 10*3/uL Eosinophils # (0.04-0.35) 10*3/uL Basophils # (0.00-0.10) 10*3/uL PT (10.0-12.5) sec INR (<1.2) APTT (22.0-30.0) sec Sodium (137-145) mmol/L Potassium (3.5-5.1) mmol/L Chloride (98-107) mmol/L Carbon Dioxide (22-30) mmol/L Anion Gap mmol/L BUN (9-20) mg/dL Creatinine (0.66-1.25) mg/dL Est GFR (CKD-EPI)AfAm (>60 ml/min/1.73 sqM) Est GFR (CKD-EPI)NonAf (>60 ml/min/1.73 sqM) Glucose (74-99) mg/dL Plasma Lactic Acid Sawyer 1.4 (0.7-2.0) mmol/L Calcium (8.4-10.2) mg/dL Magnesium (1.6-2.3) mg/dL Total Bilirubin (0.2-1.3) mg/dL AST (17-59) U/L ALT (4-49) U/L Alkaline Phosphatase (38-126) U/L Troponin I 0.044 H* (0.000-0.034) ng/mL NT-Pro-B Natriuret Pep pg/mL Total Protein (6.3-8.2) g/dL Albumin (3.5-5.0) g/dL Influenza Type A (PCR) Not Detected (Not Detectd) Influenza Type B (PCR) Not Detected (Not Detectd) RSV (PCR) Not Detected (Not Detectd) SARS-CoV-2 (PCR) Not Detected (Not Detectd) Critical Care Time Critical Care Time: Yes Total Critical Care Time: 35 Disposition Clinical Impression: Acute pulmonary edema Disposition: ADMITTED IP TO THIS HOSP Referrals: Erasmo Downs MD [Primary Care Provider] - 1-2 days Time of Disposition: 16:28
[2024-07-04 16:05] LABS: Influenza A Not Detected (Not Detectd); Influenza B Not Detected (Not Detectd); RSV Not Detected (Not Detectd)
[2024-07-04 16:11] LABS: NT-Pro-B-Type Natriuretic Pept 79900 pg/mL
[2024-07-04] MEDS: NITROGLYCERIN OINT 1 INCH/GM PACKET TOPICAL STA (16:51)
[2024-07-04] MEDS: FUROSEMIDE 10 MG/ML 4 ML VIAL IV STA (16:52)
[2024-07-04] MEDS: NITROGLYCERIN OINT 1 INCH/GM PACKET TOPICAL SCH (17:15)
[2024-07-04] MEDS ORDERED: NITROGLYCERIN SL TABS 0.4 MG TAB SUBLINGUAL PRN (19:16)
[2024-07-04] MEDS: MULTIVITAMINS, THERA 1 EACH TAB PO SCH (19:44)
[2024-07-04] MEDS: METOPROLOL TARTRATE 25 MG TAB PO SCH (19:44)
[2024-07-04] MEDS: amLODIPine 5 MG TAB PO SCH (19:44)
[2024-07-04] MEDS: APIXABAN 2.5 MG TABLET PO SCH (19:44)
[2024-07-04] MEDS: TAMSULOSIN 0.4 MG CAP.ER.24H PO SCH (19:45)
[2024-07-04] MEDS: PRAVASTATIN SODIUM 40 MG TAB PO SCH (19:45)
[2024-07-04] MEDS: SODIUM BICARBONATE TAB 650 MG TAB PO SCH (19:45)
[2024-07-04] MEDS: AZELASTINE 137MCG/SPRAY EA NOSTRIL SCH (19:47)
[2024-07-04] MEDS: SYMBICORT 160-4.5 MCG INHALER INHALATION SCH (19:47)
[2024-07-04] MEDS ORDERED: DEXTROSE 50% SYRINGE 50 ML IVP PRN ×2 (20:10)
--- NOTE | 2024-07-04 20:15 | P.HPIM ---
History of Present Illness H&P Date: 07/04/24 Chief Complaint: Multiple symptoms pleasant 78 years old male with past medical history of multiple medical problems . PCP: Dr. Erasmo Downs. Clinical Research Manager Dr. Kelly Cortés. Assembler Adjuster Dr. Villalpando. Recently in the hospital from June 20 through June 28. Then presented with fever and dyspnea and cough and chest pain x 2 weeks. echocardiogram from 02/19/2024: Showed ejection fraction of 45 to 50%. Was having dark stools. June 26: Underwent EGD colonoscopy by Dr. Mercado. Polyps were removed. . I do not see it in the MAR. Will resume same. Increase activity. EGD: Erosive esophagitis. No stigmata of bleeding. Received IV Ferrlecit. Eliquis was resumed blood cultures positive for Streptococcus pneumoniae on June 20. Patient had been getting IV ceftriaxone. Patient has a Hilario catheter. It was discontinued. Had to be reinserted prior to discharge. Patient does follow with Dr. Costello. Patient presented multitude of symptoms. Feels is not able to take care of himself at home. Short of breath. Some leg swelling. Cough not able to expectorate. Decreased appetite. Some aches and pains. His has been in the hospital for some time. Feels feverish but no fever documented. Normally has 3-4 small bowel movements a day. Review of systems: GEN.: Tired, decreased appetite EYES: None HEENT: None NECK: None RESPIRATORY: Short of breath, cough CARDIOVASCULAR: Short of breath or edema. No chest pain e GASTROINTESTINAL: Baseline 3-4 BMs a day. Small amounts. Up with soft e GENITOURINARY: Hilario cath] MUSCULOSKELETAL: Joint pains LYMPHATICS: None HEMATOLOGICAL: None PSYCHIATRY: Anxious NEUROLOGICAL: None Social history: . is currently admitted to the hospital. Quite some time. Denies smoking. Alcohol. Physical examination: VITAL SIGNS: [97.8, 75, 20, 138 x 70, 92% room GENERAL: BMI 25. Laying in bed. Anxious. Short of breath.. EYES: [Pupils equal. Conjunctiva sadaf l. HEENT: External appearance of nose and ears normal, oral cavity grossly normal. Some decreased hearing NECK: JVD unable to assess; masses not palpable. HEART: First and second heart sounds are normal; edema present. LUNGS: Respiratory rate increased l; fair air entry. ABDOMEN: Soft, nontender, liver spleen not palpable, no masses palpable. PSYCH: [Alert and oriented x3; mood and affect anxious l. MUSCULOSKELETAL:No Clubbing/cyanosis;muscles-grossly intact. OA NEUROLOGICAL: Cranial nerves grossly intact; no facial asymmetry, power and sensation grossly intact. LYMPHATICS: No lymph nodes palpable in the axilla and neck INVESTIGATIONS, reviewed in the clinical context: July 04, 2024: White count 8.6 hemoglobin 9.1 platelets 243 sodium 139 potassium 3.5 BUN 37 creatinine 2.35 EKG tracing personally reviewed by me-normal sinus rhythm. First-degree block. ST-T wave changes. Chest x-ray film personally reviewed by me-cardiomegaly with venous prominence June 20, 2024: Creatinine 3.03 echocardiogram from 02/19/2024: Showed ejection fraction of 45 to 50% Assessment plan: -Acute on chronic CHF exacerbation, which is suspected both systolic and diastolic dysfunction with slightly lowered ejection fraction, EF 45 to 50% IV Lasix drip at 10 mg an hour. Strict I's and O's. Fluid restriction 1500 cc/day Repeat echocardiogram -Acute hypoxic respiratory failure secondary to CHF Supplemental oxygen -Recent admission with GI bleed is suspected with iron deficiency anemia. Normocytic anemia, chronic with recent worsening and black stool. EGD colonoscopy showing some esophagitis. Otherwise unremarkable. No stigmata of bleeding. Some polyps removed Protonix - Normocytic anemia from recent GI bleed. Follow H&H -Chronic kidney disease stage IV secondary to diabetic nephropathy Baseline creatinine 2.5-3 Consult nephrology. -Diabetes mellitus, type II on oral hypoglycemic Follow Accu-Cheks diabetic diet -Essential hypertension Amlodipine 5 mg a day. Lopressor 25 mg twice daily -Hyperlipidemia Pravachol -Bleeding hemorrhoids Anusol HC -Persistent atrial fibrillation, rate controlled Lopressor 25 twice daily. Eliquis -Chronic fibromyalgia -Chronic low back pain and degenerative disc disease of the lumbar spine. -Full code Discussed with patient. Past Medical History Past Medical History: Atrial Fibrillation, Coronary Artery Disease (CAD), Diabetes Mellitus, Dialysis, Hypertension, Prostate Disorder, Renal Disease Additional Past Medical History / Comment(s): Dialysis Mon, Wed, Wed History of Any Multi-Drug Resistant Organisms: None Reported Past Surgical History: Cholecystectomy, Coronary Bypass/CABG Additional Past Surgical History / Comment(s): 07 ACL ligament replacement, CABG 3 vessel Past Anesthesia/Blood Transfusion Reactions: No Reported Reaction Past Psychological History: Anxiety Smoking Status: Never smoker Past Alcohol Use History: None Reported Past Drug Use History: None Reported - Past Family History Father Family Medical History: Cancer Additional Family Medical History / Comment(s): pancreatic Medications and Allergies Home Medications Medication Instructions Recorded Confirmed Type Metoprolol Tartrate [Lopressor] 25 mg PO BID 02/11/22 07/04/24 History Nitroglycerin Sl Tabs [Nitrostat] 0.4 mg SL Q5M PRN 02/11/22 07/04/24 History Pravastatin Sodium [Pravachol] 40 mg PO HS 02/11/22 07/04/24 History Tamsulosin HCl [Flomax] 0.4 mg PO BID 02/11/22 07/04/24 History amLODIPine [Norvasc] 5 mg PO DAILY 03/18/22 07/04/24 History Budesonide/Formoterol Fumarate 2 puff INHALATION RT-BID 06/05/22 07/04/24 History [Symbicort 160-4.5 Mcg Inhaler] glyBURIDE [Diabeta] 2.5 mg PO Q3D 11/02/22 07/04/24 History Apixaban [Eliquis] 2.5 mg PO BID 06/21/24 07/04/24 History Azelastine HCl [Astelin Nasal 1 spray EA NOSTRIL BID 06/21/24 07/04/24 History [facility]] Mv-Min/Folic/K1/Lycopen/Lutein 1 tab PO DAILY 06/21/24 07/04/24 History [Centrum Silver Men Tablet] Sodium Bicarbonate Tab 650 mg PO HS 06/21/24 07/04/24 History Cefuroxime [Ceftin] 250 mg PO BID #20 tab 06/26/24 07/04/24 Rx Hydrocortisone [Anusol-Hc] 1 applic RECTAL DAILY #30 gm 06/27/24 07/04/24 Rx Torsemide [Demadex] 20 mg PO DAILY #0 06/27/24 07/04/24 Rx Pantoprazole [Protonix] 40 mg PO AC-BRKFST #30 tab 06/28/24 07/04/24 Rx Amoxic-Pot Clav 875-125Mg 1 tab PO Q12HR 10 Days #20 tab 07/01/24 07/04/24 Rx [Augmentin 455-818] Allergies Allergy/AdvReac Type Severity Reaction Status Date / Time duloxetine [From Cymbalta] Allergy Rash/Hives Verified 07/04/24 16:48 enalaprilat [From Vasotec] Allergy Unknown Verified 07/04/24 16:48 levofloxacin [From Levaquin] Allergy Rash/Hives Verified 07/04/24 16:48 saxagliptin [From Onglyza] Allergy Rash/Hives Verified 07/04/24 16:48 sulfamethoxazole Allergy Rash/Hives Verified 07/04/24 16:48 [From Bactrim] trimethoprim [From Bactrim] Allergy Rash/Hives Verified 07/04/24 16:48 Physical Exam Vitals: Vital Signs Temp Pulse Resp BP Pulse Ox 07/04/24 18:00 97.8 F 75 20 138/70 92 L 07/04/24 16:49 98.1 F 77 18 142/71 90 L 07/04/24 14:22 24 07/04/24 14:19 97.8 F 78 20 132/92 94 L Intake and Output 07/04/24 07/04/24 07/04/24 06:59 14:59 22:59 Other: Weight 70.307 kg Results CBC & Chem 7: 07/04/24 15:17 07/04/24 15:17 Labs: Abnormal Lab Results - Last 24 Hours (Table) 07/04/24 07/04/24 07/04/24 Range/Units 15:17 15:17 15:17 RBC 2.89 L (4.40-5.60) 10*6/uL Hgb 9.1 L (13.0-17.0) g/dL Hct 28.1 L (39.6-50.0) % MCV 97.2 H (80.0-97.0) fL Lymphocytes # 0.80 L (0.90-5.00) 10*3/uL Eosinophils # 0.02 L (0.04-0.35) 10*3/uL PT 13.0 H (10.0-12.5) sec INR 1.2 H (<1.2) APTT 35.4 H (22.0-30.0) sec BUN 37 H (9-20) mg/dL Creatinine 2.35 H (0.66-1.25) mg/dL Glucose 150 H (74-99) mg/dL Calcium 8.1 L (8.4-10.2) mg/dL Troponin I (0.000-0.034) ng/mL Albumin 3.3 L (3.5-5.0) g/dL 07/04/24 Range/Units 15:17 RBC (4.40-5.60) 10*6/uL Hgb (13.0-17.0) g/dL Hct (39.6-50.0) % MCV (80.0-97.0) fL Lymphocytes # (0.90-5.00) 10*3/uL Eosinophils # (0.04-0.35) 10*3/uL PT (10.0-12.5) sec INR (<1.2) APTT (22.0-30.0) sec BUN (9-20) mg/dL Creatinine (0.66-1.25) mg/dL Glucose (74-99) mg/dL Calcium (8.4-10.2) mg/dL Troponin I 0.044 H* (0.000-0.034) ng/mL Albumin (3.5-5.0) g/dL
[2024-07-04] MEDS: FUROSEMIDE 100 MG in SODIUM CHLORIDE 0.9% 90 ML IV SCH (20:45)
[2024-07-04 20:46] LABS: Glucose,Whole Blood 202 mg/dL (70-110)
[2024-07-04] MEDS: INSULIN LISPRO (HumaLOG) 100 UNIT/ML 10 mL VL SQ SCH (20:49)
[2024-07-05] MEDS ORDERED: FUROSEMIDE 40 MG TAB PO SCH
[2024-07-05] MEDS ORDERED: FUROSEMIDE 10 MG/ML 4 ML VIAL IV SCH
[2024-07-05 06:48] LABS: Glucose,Whole Blood 116 mg/dL (70-110)
[2024-07-05] MEDS: PANTOPRAZOLE 40 MG TABLET PO SCH (06:48)
[2024-07-05 06:50] LABS: African American GFR (CKD) 28 (>60 ml/min/1.73 sqM); Anion Gap 9 mmol/L; Blood Urea Nitrogen 35 mg/dL (9-20); Calcium 8.6 mg/dL (8.4-10.2); Carbon Dioxide 26 mmol/L (22-30); Chloride 105 mmol/L (98-107); Glucose 103 mg/dL (74-99); Non-African American GFR(CKD) 24 (>60 ml/min/1.73 sqM); Potassium 3.4 mmol/L (3.5-5.1); Sodium 140 mmol/L (137-145)
[2024-07-05] MEDS ORDERED: Potassium Replacement Protocol 1 EACH MISC MISCELLANE PRN (07:37)
[2024-07-05] MEDS: glipiZIDE 5 MG TAB PO SCH (09:54)
[2024-07-05] MEDS: POTASSIUM CHLORIDE ER 20 MEQ TAB.ER PO SCH (09:54)
--- NOTE | 2024-07-05 10:07 | P.CRDCN ---
History of Present Illness Consult date: 07/05/24 Reason for Consult (text): acute pulmonary edema History of present illness: This is an 78-year-old male patient of Dr. Cortés with past medical history of coronary artery disease status post CABG, ischemic cardiomyopathy, paroxysmal atrial fibrillation, mitral and aortic regurgitation, chronic kidney disease. We have been asked to evaluate the patient for acute pulmonary edema. Patient was recently hospitalized and was seen by cardiology for acute hypoxic respiratory failure secondary to heart failure with reduced EF. Patient was also treated for a GI bleed and underwent EGD and was resumed on anticoagulation before discharge. Patient states that once he was home he had a gout exacerbation to the left ankle and was in severe pain. He developed shortness of breath with cough and wheezing. He had chest pain with deep breathing and coughing. His cough is nonproductive. He denies any weight increase but he noted that he had more lower extremity edema which has gotten better since he arrived. Positive PND and patient uses 2 pillows at home. He thinks he has had a little bit of a fever. No nausea or vomiting. No blood in his urine or stool. No stroke or seizure history. Patient has been started on a Lasix drip. Blood pressure 111/55, heart rate in the 70s, pulse ox 98% on 3 L nasal cannula. -EKG: Sinus rhythm with PACs, poor R wave progression, LVH, nonspecific ST changes. -Chest x-ray: -Laboratory studies: WBC 8.6, hemoglobin 9.1, sodium 140, potassium 3.4, BUN 35 creatinine 2.46. Troponin 0.044. proBNP 79,900. -Home cardiac medications: Amlodipine 5 mg daily, Eliquis 2.5 mg twice daily, metoprolol tartrate 25 mg twice daily, Nitrostat as needed, pravastatin 40 mg at bedtime, torsemide 20 mg daily -Echocardiogram performed in the office on 06/15/2024 revealed EF of 30%, mild concentric left trickle hypertrophy. Moderate aortic regurgitation, severe mitral regurgitation, mild to moderate tricuspid regurgitation, PASP 46 mmHg. Mild pulmonic regurgitation. - Lexiscan Cardiolite stress test performed in the office on 05/31/2023 revealed inconclusive EKG part of the stress test due to baseline EKG abnormalities. Abnormal nuclear scan showing cardiomyopathy with dilated left ventricle and moderate to severe LV dysfunction with a EF of 35%. Review Of Systems: At the time of my exam: CONSTITUTIONAL: Denies fever or chills. HEENT: Denies blurred vision, vision changes, or eye pain. Denies hemoptysis CARDIOVASCULAR: Denies chest pain. Denies orthopnea. Denies PND. Denies palpitations RESPIRATORY: Reports shortness of breath. GASTROINTESTINAL: Denies abdominal pain. Denies nausea or vomiting. HEMATOLOGIC: Denies bleeding disorders. GENITOURINARY: Denies any blood in urine. SKIN: Denies puritis. Denies rash. Physical examination: Gen: This is 78-year-old male in no acute respiratory distress. VS: reviewed HEENT: Head is atraumatic, normocephalic. Pupils equal, round. Sclerae is anicteric. NECK: Supple. No JVD. LUNGS: Crackles in the bilateral bases. No intercostal retractions. HEART: Regular rate and rhythm. Holosystolic murmur. ABDOMEN: Soft No tenderness. EXTREMITIES: 2+ lower extremity edema edema. No calf tenderness. NEUROLOGICAL: Patient is awake, alert and oriented x3. Assessment: Acute on chronic heart failure with reduced EF Paroxysmal atrial fibrillation currently in sinus rhythm Ischemic cardiomyopathy with recent EF of 30% Severe MR CAD status post CABG Chronic kidney disease Chronic anemia Recent GI workup negative for active bleeding Plan: Resume patient's home cardiac medications with the following changes Discontinue amlodipine Add Farxiga 10 mg daily Continue patient on Lasix drip Monitor KATHY, daily weights, electrolytes and renal function Plan to optimize medical treatment No need to repeat echocardiogram Further recommendations to follow based upon clinical course Thank you kindly for this consultation. Nurse practitioner note has been reviewed, I agree with documented findings and plan of care. Patient was seen and examined. Past Medical History Past Medical History: Atrial Fibrillation, Coronary Artery Disease (CAD), Diabetes Mellitus, Dialysis, Hypertension, Prostate Disorder, Renal Disease Additional Past Medical History / Comment(s): Dialysis Mon, Wed, Fri History of Any Multi-Drug Resistant Organisms: None Reported Past Surgical History: Cholecystectomy, Coronary Bypass/CABG Additional Past Surgical History / Comment(s): ACL ligament replacement, CABG 3 vessel Past Anesthesia/Blood Transfusion Reactions: No Reported Reaction Past Psychological History: Anxiety Smoking Status: Never smoker Past Alcohol Use History: None Reported Past Drug Use History: None Reported - Past Family History Father Family Medical History: Cancer Additional Family Medical History / Comment(s): pancreatic Medications and Allergies Home Medications Medication Instructions Recorded Confirmed Type Metoprolol Tartrate [Lopressor] 25 mg PO BID 02/11/22 07/04/24 History Nitroglycerin Sl Tabs [Nitrostat] 0.4 mg SL Q5M PRN 02/11/22 07/04/24 History Pravastatin Sodium [Pravachol] 40 mg PO HS 02/11/22 07/04/24 History Tamsulosin HCl [Flomax] 0.4 mg PO BID 02/11/22 07/04/24 History amLODIPine [Norvasc] 5 mg PO DAILY 03/18/22 07/04/24 History Budesonide/Formoterol Fumarate 2 puff INHALATION RT-BID 06/05/22 07/04/24 Hi story [Symbicort 160-4.5 Mcg Inhaler] glyBURIDE [Diabeta] 2.5 mg PO Q3D 11/02/22 07/04/24 History Apixaban [Eliquis] 2.5 mg PO BID 06/21/24 07/04/24 History Azelastine HCl [Astelin Nasal 1 spray EA NOSTRIL BID 06/21/24 07/04/24 History [place]] Mv-Min/Folic/K1/Lycopen/Lutein 1 tab PO DAILY 06/21/24 07/04/24 History [Centrum Silver Men Tablet] Sodium Bicarbonate Tab 650 mg PO HS 06/21/24 07/04/24 History Cefuroxime [Ceftin] 250 mg PO BID #20 tab 06/26/24 07/04/24 Rx Hydrocortisone [Anusol-Hc] 1 applic RECTAL DAILY #30 gm 06/27/24 07/04/24 Rx Torsemide [Demadex] 20 mg PO DAILY #0 06/27/24 07/04/24 Rx Pantoprazole [Protonix] 40 mg PO AC-BRKFST #30 tab 06/28/24 07/04/24 Rx Amoxic-Pot Clav 875-125Mg 1 tab PO Q12HR 10 Days #20 tab 07/01/24 07/04/24 Rx [Augmentin 875-125] Allergies Allergy/AdvReac Type Severity Reaction Status Date / Time duloxetine [From Cymbalta] Allergy Rash/Hives Verified 07/04/24 16:48 enalaprilat [From Vasotec] Allergy Unknown Verified 07/04/24 16:48 levofloxacin [From Levaquin] Allergy Rash/Hives Verified 07/04/24 16:48 saxagliptin [From Onglyza] Allergy Rash/Hives Verified 07/04/24 16:48 sulfamethoxazole Allergy Rash/Hives Verified 07/04/24 16:48 [From Bactrim] trimethoprim [From Bactrim] Allergy Rash/Hives Verified 07/04/24 16:48 Physical Exam Vitals: Vital Signs Temp Pulse Pulse Resp BP BP Pulse Ox 07/05/24 07:40 97.8 F 74 22 111/55 98 07/05/24 04:00 97.8 F 71 20 143/65 96 07/05/24 02:00 20 07/04/24 23:00 98.0 F 75 20 152/68 97 07/04/24 21:00 71 18 116/49 92 L 07/04/24 18:00 97.8 F 75 20 138/70 92 L 07/04/24 16:49 98.1 F 77 18 142/71 90 L 07/04/24 14:22 24 07/04/24 14:19 97.8 F 78 20 132/92 94 L Intake and Output 07/04/24 07/05/24 07/05/24 22:59 06:59 14:59 Intake Total 80.833 5 Output Total 650 175 Balance -569.167 -170 Intake: IV 5 Invasive Line 1 5 Intake, IV Titration 80.833 Amount Furosemide 100 mg In 80.833 Sodium Chloride 0.9% 90 ml @ 10 MG/HR 10 mls/hr IV .Q10H [facility] Rx#: [id number] Output: Urine 650 175 Other: Voiding Method Indwelling Catheter Indwelling Catheter Weight 70.307 kg 67.6 kg Results 07/04/24 15:17 07/05/24 05:34 Cardiac Enzymes 07/04/24 07/04/24 Range/Units 15:17 15:17 AST 27 (17-59) U/L Troponin I 0.044 H* (0.000-0.034) ng/mL Coagulation 07/04/24 Range/Units 15:17 PT 13.0 H (10.0-12.5) sec APTT 35.4 H (22.0-30.0) sec CBC 07/04/24 Range/Units 15:17 WBC 8.63 (4.50-10.00) 10*3/uL RBC 2.89 L (4.40-5.60) 10*6/uL Hgb 9.1 L (13.0-17.0) g/dL Hct 28.1 L (39.6-50.0) % Plt Count 243 (140-440) 10*3/uL Comprehensive Metabolic Panel 07/04/24 07/05/24 Range/Units 15:17 05:34 Sodium 139 140 (137-145) mmol/L Potassium 3.5 3.4 L (3.5-5.1) mmol/L Chloride 105 105 (98-107) mmol/L Carbon Dioxide 23 26 (22-30) mmol/L BUN 37 H 35 H (9-20) mg/dL Creatinine 2.35 H 2.46 H (0.66-1.25) mg/dL Glucose 150 H 103 H (74-99) mg/dL Calcium 8.1 L 8.6 (8.4-10.2) mg/dL AST 27 (17-59) U/L ALT 25 (4-49) U/L Alkaline Phosphatase 75 (38-126) U/L Total Protein 6.5 (6.3-8.2) g/dL Albumin 3.3 L (3.5-5.0) g/dL Current Medications Generic Name Dose Route Start Last Admin Trade Name Freq PRN Reason Stop Dose Admin Acetaminophen 650 mg 07/05/24 05:21 Acetaminophen Tab 325 Mg Tab PO Q6HR PRN Fever and/ or Pain Amlodipine Besylate 5 mg 07/04/24 19:16 07/04/24 19:44 Amlodipine 5 Mg Tab PO 5 mg DAILY JUMA Administration Apixaban 2.5 mg 07/04/24 21:00 07/04/24 19:44 Apixaban 2.5 Mg Tablet PO 2.5 mg BID JUMA Administration Protocol Azelastine HCl 1 spray 07/04/24 21:00 07/04/24 19:47 Azelastine 137mcg/[place] EA NOSTRIL Not Given BID [facility] Budesonide/Formoterol Fumarate 2 puff 07/04/24 20:00 07/04/24 19:47 Symbicort 160-4.5 Mcg Inhaler INHALATION 2 puff RT-BID JUMA Administration Dextrose/Water 25 ml 07/04/24 20:10 Dextrose 50% Syringe 50 Ml IVP PER PROTOCOL PRN Hypoglycemia Protocol Dextrose/Water 50 ml 07/04/24 20:10 Dextrose 50% Syringe 50 Ml IVP PER PROTOCOL PRN Hypoglycemia Protocol Glipizide 5 mg 07/05/24 09:00 Glipizide 5 Mg Tab PO Q3D JUMA Hydrocortisone 1 applic 07/05/24 09:00 Hydrocortisone 2.5% Rectal Cream 30 Gm Tube RECTAL DAILY JUMA Furosemide 100 mg/ Sodium 100 mls @ 10 mls/hr 07/04/24 20:15 07/05/24 04:50 Chloride IV 10 mg/hr .Q10H JUMA 10 mls/hr Administration 10 MG/HR Insulin Human Lispro 0 unit 07/04/24 20:15 07/05/24 06:47 Insulin Lispro (Humalog) 100 Unit/Ml 10 Ml Vl SQ Not Given AC-TID JUMA Protocol Metoprolol Tartrate 25 mg 07/04/24 19:16 07/04/24 19:44 Metoprolol Tartrate 25 Mg Tab PO 25 mg BID JUMA Administration Miscellaneous Information 1 each 07/05/24 07:37 Potassium Replacement Protocol 1 Each Misc MISCELLANE DAILY PRN Per Protocol Protocol Multivitamins 1 each 07/04/24 19:30 07/04/24 19:44 Multivitamins, Thera 1 Each Tab PO 1 each DAILY JUMA Administration Nitroglycerin 0.4 mg 07/04/24 19:16 Nitroglycerin Sl Tabs 0.4 Mg Tab SUBLINGUAL Q5M PRN Chest Pain Pantoprazole Sodium 40 mg 07/05/24 07:30 07/05/24 06:48 Pantoprazole 40 Mg Tablet PO Not Given AC-BRKFST JUMA Pravastatin Sodium 40 mg 07/04/24 21:00 07/04/24 19:45 Pravastatin Sodium 40 Mg Tab PO 40 mg HS JUMA Administration Sodium Bicarbonate 650 mg 07/04/24 21:00 07/04/24 19:45 Sodium Bicarbonate Tab 650 Mg Tab PO 650 mg HS JUMA Administration Tamsulosin HCl 0.4 mg 07/04/24 21:00 07/04/24 19:45 Tamsulosin 0.4 Mg Cap.Er.24h PO 0.4 mg BID JUMA Administration Intake and Output 07/04/24 07/05/24 07/05/24 22:59 06:59 14:59 Intake Total 80.833 5 Output Total 650 175 Balance -569.167 -170 Intake: IV 5 Invasive Line 1 5 Intake, IV Titration 80.833 Amount Furosemide 100 mg In 80.833 Sodium Chloride 0.9% 90 ml @ 10 MG/HR 10 mls/hr IV .Q10H [facility] Rx#: [id number] Output: Urine 650 175 Other: Voiding Method Indwelling Catheter Indwelling Catheter Weight 70.307 kg 67.6 kg 07/04/24 15:17 07/05/24 05:34
[2024-07-05] MEDS: DAPAGLIFLOZIN PROPANEDIOL 10 MG TABLET PO SCH (10:09)
[2024-07-05] MEDS: ACETAMINOPHEN TAB 325 MG TAB PO PRN (10:21)
[2024-07-05 11:13] LABS: Glucose,Whole Blood 203 mg/dL (70-110)
--- NOTE | 2024-07-05 11:16 | P.NPCON ---
History of Present Illness - Reason for Consult chronic renal failure - History of Present Illness Reason for consultation: Chronic kidney disease Patient is a 78-year-old male seen in consultation for chronic kidney disease. Patient has chronic kidney disease stage IV with baseline creatinine in the ran ge of 3-3.5. Patient had kidney biopsy in the past which showed ATN with superimposed chronic injury with acute inflammation suggestive of pyelonephritis. Patient states he was recently at the hospital with pneumonia which was treated with antibiotics. Patient is upon discharge he felt short of breath and also noticed edema in his lower extremities. He does take diuretics at home. Patient does have history of diabetes mellitus. Also has history of coronary disease and is status post CABG. He is currently on 3 L nasal cannula. Creatinine 2.46 today which is at his baseline. He is currently maintained on Lasix drip. Patient does have cardiomyopathy with ejection fraction of 30%. Denies vomiting or diarrhea. Denies chest pain. Vital signs are stable. General: No acute distress. HEENT: Head exam is unremarkable. LUNGS: Scattered rhonchi. HEART: Rate and Rhythm are regular. ABDOMEN: Nontender. EXTREMITITES: 1+ edema. Past Medical History Past Medical History: Atrial Fibrillation, Coronary Artery Disease (CAD), Diabetes Mellitus, Dialysis, Hypertension, Prostate Disorder, Renal Disease Additional Past Medical History / Comment(s): Dialysis Wed, Wed, Wed History of Any Multi-Drug Resistant Organisms: None Reported Past Surgical History: Cholecystectomy, Coronary Bypass/CABG Additional Past Surgical History / Comment(s): ACL ligament replacement, CABG 3 vessel Past Anesthesia/Blood Transfusion Reactions: No Reported Reaction Past Psychological History: Anxiety Smoking Status: Never smoker Past Alcohol Use History: None Reported Past Drug Use History: None Reported - Past Family History Father Family Medical History: Cancer Additional Family Medical History / Comment(s): pancreatic Medications and Allergies Home Medications Medication Instructions Recorded Confirmed Type Metoprolol Tartrate [Lopressor] 25 mg PO BID 02/11/22 07/04/24 History Nitroglycerin Sl Tabs [Nitrostat] 0.4 mg SL Q5M PRN 02/11/22 07/04/24 History Pravastatin Sodium [Pravachol] 40 mg PO HS 02/11/22 07/04/24 History Tamsulosin HCl [Flomax] 0.4 mg PO BID 02/11/22 07/04/24 History amLODIPine [Norvasc] 5 mg PO DAILY 03/18/22 07/04/24 History Budesonide/Formoterol Fumarate 2 puff INHALATION RT-BID 06/05/22 07/04/24 History [Symbicort 160-4.5 Mcg Inhaler] glyBURIDE [Diabeta] 2.5 mg PO Q3D 11/02/22 07/04/24 History Apixaban [Eliquis] 2.5 mg PO BID 06/21/24 07/04/24 History Azelastine HCl [Astelin Nasal 1 spray EA NOSTRIL BID 06/21/24 07/04/24 History [place]] Mv-Min/Folic/K1/Lycopen/Lutein 1 tab PO DAILY 06/21/24 07/04/24 History [Centrum Silver Men Tablet] Sodium Bicarbonate Tab 650 mg PO HS 06/21/24 07/04/24 History Cefuroxime [Ceftin] 250 mg PO BID #20 tab 06/26/24 07/04/24 Rx Hydrocortisone [Anusol-Hc] 1 applic RECTAL DAILY #30 gm 06/27/24 07/04/24 Rx Torsemide [Demadex] 20 mg PO DAILY #0 06/27/24 07/04/24 Rx Pantoprazole [Protonix] 40 mg PO AC-BRKFST #30 tab 06/28/24 07/04/24 Rx Amoxic-Pot Clav 875-125Mg 1 tab PO Q12HR 10 Days #20 tab 07/01/24 07/04/24 Rx [Augmentin 875-125] Allergies Allergy/AdvReac Type Severity Reaction Status Date / Time duloxetine [From Cymbalta] Allergy Rash/Hives Verified 07/04/24 16:48 enalaprilat [From Vasotec] Allergy Unknown Verified 07/04/24 16:48 levofloxacin [From Levaquin] Allergy Rash/Hives Verified 07/04/24 16:48 saxagliptin [From Onglyza] Allergy Rash/Hives Verified 07/04/24 16:48 sulfamethoxazole Allergy Rash/Hives Verified 07/04/24 16:48 [From Bactrim] trimethoprim [From Bactrim] Allergy Rash/Hives Verified 07/04/24 16:48 Physical Exam Vitals: Vital Signs Temp Pulse Pulse Resp BP BP Pulse Ox 07/05/24 10:02 78 131/59 07/05/24 09:53 95 07/05/24 07:40 97.8 F 74 22 111/55 98 07/05/24 04:00 97.8 F 71 20 143/65 96 07/05/24 02:00 20 07/04/24 23:00 98.0 F 75 20 152/68 97 07/04/24 21:00 71 18 116/49 92 L 07/04/24 18:00 97.8 F 75 20 138/70 92 L 07/04/24 16:49 98.1 F 77 18 142/71 90 L 07/04/24 14:22 24 07/04/24 14:19 97.8 F 78 20 132/92 94 L Intake and Output 07/04/24 07/05/24 07/05/24 22:59 06:59 14:59 Intake Total 80.833 245 Output Total 650 175 Balance -569.167 70 Intake: IV 5 Invasive Line 1 5 Intake, IV Titration 80.833 Amount Furosemide 100 mg In 80.833 Sodium Chloride 0.9% 90 ml @ 10 MG/HR 10 mls/hr IV .Q10H [facility] Rx#: [id number] Oral 240 Output: Urine 650 175 Other: Voiding Method Indwelling Catheter Indwelling Catheter Weight 70.307 kg 67.6 kg Results - Lab Results Most recent lab results Calcium 8.6 mg/dL (8.4-10.2) 07/05/24 05:34 Magnesium 1.8 mg/dL (1.6-2.3) 07/04/24 15:17 07/04/24 15:17 07/05/24 05:34 Assessment and Plan Plan: Assessment: 1. Chronic kidney disease stage IV with baseline creatinine near 3 secondary to biopsy-proven ATN superimposed on chronic injury. 2. Volume overload maintained on Lasix drip. 3. Cardiomyopathy ejection fraction of 30% with severe mitral regurgitation. 4. Diabetes mellitus. 5. Coronary disease status post CABG. 6. Hypokalemia from diuresis. 7. Anemia of chronic kidney disease. Rule out iron deficiency. 8. Acute hypoxic respiratory failure. Plan: Maintain Lasix drip. Maintain Farxiga. Follow-up echocardiogram. Check iron studies. Maintain low-salt diet and fluid restriction. Continue to monitor renal function and urine output. Potassium replaced. Thank you for the consultation. I will continue to follow the patient with you during his hospital stay.
--- NOTE | 2024-07-05 12:40 | CA ---
Transthoracic Echo Report Name: Andrea Mensah Age: 78 Gender: M : 1945 Exam Date: 07/05/2024 09:27 Exam Location: [facility] Ht (in): 66 Wt (lb): 155 Ordering Physician: Raj Walton MD Attending/Referring Phys: Tanbark Peeler Edith Rodrigues RDCS Procedure CPT: Indications: chf Cardiac Hx: Technical Quality: Fair Contrast 1: Total Dose (mL): Contrast 2: Total Dose (mL): MEASUREMENTS (Male / Female) Normal Values 2D ECHO LV Diastolic Diameter PLAX 6.2 cm 4.2 - 5.9 / 3.9 - 5.3 cm LV Systolic Diameter PLAX 5.8 cm IVS Diastolic Thickness 0.8 cm 0.6 - 1.0 / 0.6 - 0.9 cm LVPW Diastolic Thickness 1.0 cm 0.6 - 1.0 / 0.6 - 0.9 cm LV Relative Wall Thickness 0.3 RV Internal Dim ED PLAX 1.6 cm LVOT Diameter 2.0 cm LA Systolic Diameter LX 4.7 cm 3.0 - 4.0 / 2.7 - 3.8 cm LV Diastolic Volume MOD BP 193.5 cm??? 67 - 155 / 56 - 104 cm??? LV Systolic Volume MOD BP 161.0 cm??? 22 - 58 / 19 - 49 cm??? LV Ejection Fraction MOD BP 16.8 % >= 55 % LV Diastolic Volume MOD 4C 195.9 cm??? LV Systolic Volume MOD 4C 138.7 cm??? LV Ejection Fraction MOD 4C 29.2 % LV Diastolic Length 4C 9.3 cm LV Systolic Length 4C 8.9 cm LV Diastolic Volume MOD 2C 191.1 cm??? LV Systolic Volume MOD 2C 178.9 cm??? LV Ejection Fraction MOD 2C 6.4 % LV Diastolic Length 2C 9.3 cm LV Systolic Length 2C 9.4 cm LA Volume 76.6 cm??? 18 - 58 / 22 - 52 cm??? LA Volume Index 42.1 cm???/m??? 16 - 28 cm???/m??? M-MODE Aortic Root Diameter MM 3.9 cm LA Systolic Diameter MM 4.3 cm LA Ao Ratio MM 1.1 AV Cusp Separation MM 2.0 cm DOPPLER AV Peak Velocity 170.5 cm/s AV Peak Gradient 11.6 mmHg AI Peak Velocity 300.6 cm/s AI Peak Gradient 36.1 mmHg AI Pressure Half Time 472.1 ms LVOT Peak Velocity 116.7 cm/s LVOT Peak Gradient 5.5 mmHg LVOT Velocity Time Integral 19.3 cm LVOT Stroke Volume 59.1 cm??? LVOT Stroke Volume Index 32.9 ml/m??? AV Area Cont Eq pk 2.1 cm??? MV Area PHT 4.6 cm??? Mitral E Point Velocity 143.2 cm/s Mitral A Point Velocity 98.2 cm/s Mitral E to A Ratio 1.5 MV Deceleration Time 165.6 ms TR Peak Velocity 290.8 cm/s TR Peak Gradient 33.8 mmHg Right Ventricular Systolic Press 37.4 mmHg FINDINGS Left Ventricle Left ventricular ejection fraction is estimated at 15-20 %. Mildly increased left ventricular diastolic diameter. Moderately increased left ventricular diastolic volume. Severely increased left ventricular systolic volume. Severely decreased left ventricular ejection fraction. Right Ventricle Mild right ventricular dilatation. Reduced right ventricular global systolic function. Mild pulmonary hypertension. Right Atrium Mild right atrial dilatation. Left Atrium Moderately increased left atrial diameter. Moderately increased left atrial volume. Mildly increased left atrial area. Mitral Valve Cannot exclude partially flail mitral valve leaflet. Moderate to severe mitral regurgitation. No mitral stenosis. Aortic Valve Diffuse thickening (sclerosis) of the aortic valve cusps without reduced excursion. Moderate aortic regurgitation. Eccentric aortic regurgitation jet directed at the mitral valve. Tricuspid Valve Structurally normal tricuspid valve. Mild tricuspid regurgitation. No tricuspid stenosis. Pulmonic Valve Structurally normal pulmonic valve. Mild pulmonic regurgitation. No pulmonic stenosis. Pericardium No pericardial or pleural effusion. Aorta Mild aortic dilatation at the level of the sinuses of valsalva (root). CONCLUSIONS Dilated LV. Impaired LV function with EF between 15 to 20% Moderate to severe MR Aortic sclerosis with moderate aortic insufficiency Mild pulmonary hypertension Previewed by: Dr. Franklin Bright MD (Electronically Signed) Final Date: 05 July 2024 12:39
[2024-07-05 13:37] VITALS: BMI 24.0
[2024-07-05] MEDS: HYDROCORTISONE 2.5% RECTAL CREAM 30 GM TUBE RECTAL SCH (13:37)
[2024-07-05 16:36] LABS: Glucose,Whole Blood 116 mg/dL (70-110)
[2024-07-05 16:38] LABS: % Iron Saturation 9.09 (15.00-50.00)
[2024-07-06 06:15] LABS: Glucose,Whole Blood 176 mg/dL (70-110)
[2024-07-06 09:09] LABS: African American GFR (CKD) 21 (>60 ml/min/1.73 sqM); Anion Gap 15 mmol/L; Blood Urea Nitrogen 38 mg/dL (9-20); Calcium 8.8 mg/dL (8.4-10.2); Carbon Dioxide 24 mmol/L (22-30); Chloride 100 mmol/L (98-107); Glucose 141 mg/dL (74-99); Magnesium 1.9 mg/dL (1.6-2.3); Non-African American GFR(CKD) 19 (>60 ml/min/1.73 sqM); Potassium 3.4 mmol/L (3.5-5.1); Sodium 139 mmol/L (137-145)
[2024-07-06] MEDS ORDERED: Potassium Replacement Protocol 1 EACH MISC MISCELLANE PRN (09:13)
[2024-07-06] MEDS: POTASSIUM CHLORIDE ER 20 MEQ TAB.ER PO SCH (09:36)
--- NOTE | 2024-07-06 10:38 | P.PN ---
Subjective Patient is seen in follow-up for acute kidney injury on chronic kidney disease. Renal function worse today. Still on Lasix drip. Complaining of pain on his left foot from gout. Has Hilario catheter. Nonoliguric. Vital signs are stable. General: No acute distress. HEENT: Head exam is unremarkable. On nasal cannula. LUNGS: No audible rhonchi or wheezes. HEART: Rate and Rhythm are regular. Abdomen: Nontender. EXTREMITITES: Trace edema. Left foot swelling noted. Objective - Vital Signs Vital signs: Vital Signs Temp 98.6 F 07/06/24 07:15 Pulse 85 07/06/24 07:15 Resp 22 07/06/24 07:15 BP 124/65 07/06/24 09:30 Pulse Ox 95 07/06/24 07:15 FiO2 Intake & Output 07/05/24 07/06/24 07/06/24 18:59 06:59 18:59 Intake Total 803.167 169.333 240 Output Total 525 1300 800 Balance 278.167 -1130.667 -560 Weight 67.6 kg 65.8 kg Intake: IV 5 Invasive Line 1 5 Intake, IV Titration 78.167 169.333 Amount Furosemide 100 mg In 78.167 169.333 Sodium Chloride 0.9% 90 ml @ 10 MG/HR 10 mls/hr IV .Q10H [facility] Rx#: [id number] Oral 720 240 Output: Urine 525 1300 800 Other: Voiding Method Indwelling Catheter Indwelling Catheter Indwelling Catheter # Bowel Movements 1 - Labs CBC & Chem 7: 07/04/24 15:17 07/06/24 07:22 Labs: Abnormal Lab Results - Last 24 Hours (Table) 07/05/24 07/05/24 07/05/24 Range/Units 05:34 11:12 16:25 Potassium (3.5-5.1) mmol/L BUN (9-20) mg/dL Creatinine (0.66-1.25) mg/dL Glucose (74-99) mg/dL POC Glucose (mg/dL) 203 H 116 H (70-110) mg/dL Iron 21 L (65-175) UG/DL % Saturation 9.09 L (15.00-50.00) Transferrin 165.0 L (204.0-354.0) mg/dL Ferritin 619.0 H (22.0-322.0) ng/mL 07/06/24 07/06/24 Range/Units 06:10 07:22 Potassium 3.4 L (3.5-5.1) mmol/L BUN 38 H (9-20) mg/dL Creatinine 3.04 H (0.66-1.25) mg/dL Glucose 141 H (74-99) mg/dL POC Glucose (mg/dL) 176 H (70-110) mg/dL Iron (65-175) UG/DL % Saturation (15.00-50.00) Transferrin (204.0-354.0) mg/dL Ferritin (22.0-322.0) ng/mL Assessment and Plan Plan: Assessment: 1. Chronic kidney disease stage IV with baseline creatinine near 3 secondary to biopsy-proven ATN superimposed on chronic injury. 2. Volume overload maintained on Lasix drip. 3. Cardiomyopathy ejection fraction of 15 to 20% with moderate to severe mitral regurgitation. 4. Diabetes mellitus. 5. Coronary disease status post CABG. 6. Hypokalemia from diuresis. 7. Anemia of chronic kidney disease. Iron deficiency noted. 8. Acute hypoxic respiratory failure. Plan: Stop Lasix drip. Add torsemide 40 mg once daily. Maintain Farxiga. Add IV iron. Maintain low-salt diet and fluid restriction. Continue to monitor renal function and urine output. Replace potassium.
[2024-07-06] MEDS: methylPREDNISolone SOD SUCCI 40 MG/ML 1 ML VIAL IV STA (10:44)
[2024-07-06 11:14] LABS: Glucose,Whole Blood 195 mg/dL (70-110)
[2024-07-06 11:28] LABS: Glucose,Whole Blood 242 mg/dL (70-110)
[2024-07-06] MEDS: SODIUM FERRIC GLUCONAT-SUCROSE 125 MG in SODIUM CHLORIDE 0.9% 100 ML IVPB SCH (11:49)
--- NOTE | 2024-07-06 12:45 | P.PN ---
Subjective Progress Note Date: 07/06/24 Reason for Consult (text): acute pulmonary edema History of present illness: This is an 78-year-old male patient of Dr. Cortés with past medical history of coronary artery disease status post CABG, ischemic cardiomyopathy, paroxysmal atrial fibrillation, mitral and aortic regurgitation, chronic kidney disease. We have been asked to evaluate the patient for acute pulmonary edema. Patient was recently hospitalized and was seen by cardiology for acute hypoxic respiratory failure secondary to heart failure with reduced EF. Patient was also treated for a GI bleed and underwent EGD and was resumed on anticoagulation before discharge. Patient states that once he was home he had a gout exacerbation to the left ankle and was in severe pain. He developed shortness of breath with cough and wheezing. He had chest pain with deep breathing and coughing. His cough is nonproductive. He denies any weight increase but he noted that he had more lower extremity edema which has gotten better since he arrived. Positive PND and patient uses 2 pillows at home. He thinks he has had a little bit of a fever. No nausea or vomiting. No blood in his urine or stool. No stroke or seizure history. Patient has been started on a Lasix drip. Blood pressure 111/55, heart rate in the 70s, pulse ox 98% on 3 L nasal cannula. -EKG: Sinus rhythm with PACs, poor R wave progression, LVH, nonspecific ST changes. -Chest x-ray: -Laboratory studies: WBC 8.6, hemoglobin 9.1, sodium 140, potassium 3.4, BUN 35 creatinine 2.46. Troponin 0.044. proBNP 79,900. -Home cardiac medications: Amlodipine 5 mg daily, Eliquis 2.5 mg twice daily, metoprolol tartrate 25 mg twice daily, Nitrostat as needed, pravastatin 40 mg at bedtime, torsemide 20 mg daily -Echocardiogram performed in the office on 06/15/2024 revealed EF of 30%, mild concentric left trickle hypertrophy. Moderate aortic regurgitation, severe mitral regurgitation, mild to moderate tricuspid regurgitation, PASP 46 mmHg. Mild pulmonic regurgitation. - Lexiscan Cardiolite stress test performed in the office on 05/31/2023 revealed inconclusive EKG part of the stress test due to baseline EKG abnormalities. Abnormal nuclear scan showing cardiomyopathy with dilated left ventricle and moderate to severe LV dysfunction with a EF of 35%. 4/10 Patient seen and examined. Lasix drip was discontinued this morning. Patient's main concern is gout pain in his left foot. He denies chest pain or chest pressure. He denies shortness of breath. Potassium has been replaced. Blood pressure 109/63, heart rate 83, pulse ox 92% on 3 L nasal cannula. Repeat blood work reveals sodium 139, potassium 3.4, BUN 38 creatinine 3.05. Echocardiogram performed 07/04/2024 reveals Impaired LV function of 15 to 20%, dilated LV. Moderate to severe MR. Aortic sclerosis with moderate aortic insufficiency. Mild pulmonary hypertension. Physical examination: Gen: This is 78-year-old male in no acute respiratory distress. VS: reviewed HEENT: Head is atraumatic, normocephalic. Pupils equal, round. Sclerae is anicteric. NECK: Supple. No JVD. LUNGS: Crackles in the bilateral bases. No intercostal retractions. HEART: Regular rate and rhythm. Holosystolic murmur. ABDOMEN: Soft No tenderness. EXTREMITIES: 1+ lower extremity edema. No calf tenderness. NEUROLOGICAL: Patient is awake, alert and oriented x3. Assessment: Acute on chronic heart failure with reduced EF Paroxysmal atrial fibrillation currently in sinus rhythm Ischemic cardiomyopathy with recent EF of 30% Severe MR CAD status post CABG Gout left foot Chronic kidney disease Chronic anemia Recent GI workup negative for active bleeding Plan: Continue patient's home cardiac medications with the following changes Discontinue amlodipine Continue Farxiga 10 mg daily Lasix drip has been discontinued. Will plan to start Demadex 20 mg daily tomorrow Monitor KATHY, daily weights, electrolytes and renal function Plan to optimize medical treatment Further recommendations to follow based upon clinical course Nurse practitioner note has been reviewed, I agree with documented findings and plan of care. Patient was seen and examined. Objective - Vital Signs Vital signs: Vital Signs Temp 97.3 F L 07/06/24 11:20 Pulse 83 07/06/24 11:20 Resp 19 07/06/24 11:20 BP 109/63 07/06/24 11:20 Pulse Ox 92 L 07/06/24 11:20 FiO2 Intake & Output 07/05/24 07/06/24 07/06/24 18:59 06:59 18:59 Intake Total 803.167 169.333 240 Output Total 525 1300 800 Balance 278.167 -1130.667 -560 Weight 67.6 kg 65.8 kg Intake: IV 5 Invasive Line 1 5 Intake, IV Titration 78.167 169.333 Amount Furosemide 100 mg In 78.167 169.333 Sodium Chloride 0.9% 90 ml @ 10 MG/HR 10 mls/hr IV .Q10H [facility] Rx#: [id number] Oral 720 240 Output: Urine 525 1300 800 Other: Voiding Method Indwelling Catheter Indwelling Catheter Indwelling Catheter # Bowel Movements 1 - Labs CBC & Chem 7: 07/04/24 15:17 07/06/24 07:22 Labs: Abnormal Lab Results - Last 24 Hours (Table) 07/05/24 07/05/24 07/05/24 Range/Units 05:34 16:25 20:02 Potassium (3.5-5.1) mmol/L BUN (9-20) mg/dL Creatinine (0.66-1.25) mg/dL Glucose (74-99) mg/dL POC Glucose (mg/dL) 116 H 195 H (70-110) mg/dL Uric Acid (3.5-8.5) mg/dL Iron 21 L (65-175) UG/DL % Saturation 9.09 L (15.00-50.00) Transferrin 165.0 L (204.0-354.0) mg/dL Ferritin 619.0 H (22.0-322.0) ng/mL 07/06/24 07/06/24 07/06/24 Range/Units 06:10 07:22 07:22 Potassium 3.4 L (3.5-5.1) mmol/L BUN 38 H (9-20) mg/dL Creatinine 3.04 H (0.66-1.25) mg/dL Glucose 141 H (74-99) mg/dL POC Glucose (mg/dL) 176 H (70-110) mg/dL Uric Acid 11.1 H (3.5-8.5) mg/dL Iron (65-175) UG/DL % Saturation (15.00-50.00) Transferrin (204.0-354.0) mg/dL Ferritin (22.0-322.0) ng/mL 07/06/24 Range/Units 11:26 Potassium (3.5-5.1) mmol/L BUN (9-20) mg/dL Creatinine (0.66-1.25) mg/dL Glucose (74-99) mg/dL POC Glucose (mg/dL) 242 H (70-110) mg/dL Uric Acid (3.5-8.5) mg/dL Iron (65-175) UG/DL % Saturation (15.00-50.00) Transferrin (204.0-354.0) mg/dL Ferritin (22.0-322.0) ng/mL
[2024-07-06 16:40] LABS: Glucose,Whole Blood 379 mg/dL (70-110)
[2024-07-06 16:40] LABS: Glucose,Whole Blood 395 mg/dL (70-110)
--- NOTE | 2024-07-06 19:06 | P.PN ---
Progress Note - Text Progress Note Date: 07/05/24 Chief Complaint: Multiple symptoms pleasant 78 years old male with past medical history of multiple medical problems . PCP: Dr. Erasmo Downs. Continuing Education Specialist Dr. Kelly Cortés. Pants Presser Dr. Villalpando. Recently in the hospital from June 20 through June 28. Then presented with fever and dyspnea and cough and chest pain x 2 weeks. echocardiogram from 02/19/2024: Showed ejection fraction of 45 to 50%. Was having dark stools. June 26: Underwent EGD colonoscopy by Dr. Mercado. Polyps were removed. . I do not see it in the MAR. Will resume same. Increase activity. EGD: Erosive esophagitis. No stigmata of bleeding. Received IV Ferrlecit. Fuad was res umed blood cultures positive for Streptococcus pneumoniae on June 20. Patient had been getting IV ceftriaxone. Patient has a Hilario catheter. It was discontinued. Had to be reinserted prior to discharge. Patient does follow with Dr. Costello. Patient presented multitude of symptoms. Feels is not able to take care of himself at home. Short of breath. Some leg swelling. Cough not able to expe ctorate. Decreased appetite. Some aches and pains. His has been in the hospital for some time. Feels feverish but no fever documented. Normally has 3-4 small bowel movements a day. July 05: On Lasix drip. Making urine. Breathing is better. Laying flat. Eating better. Making urine. Less tired Medications reviewed Social history: . is currently admitted to the hospital. Quite some time. Denies smoking. Alcohol. Physical examination: VITAL SIGNS: 98.1, 76, 20, 119 x 56, 90% 3 L GENERAL: BMI 25. Laying on his side in the bed. Breathing better.. EYES: [Pupils equal. Conjunctiva sadaf l. HEENT: External appearance of nose and ears normal, oral cavity grossly normal. Some decreased hearing NECK: JVD unable to assess; masses not palpable. HEART: First and second heart sounds are normal; edema present. LUNGS: Respiratory rate increased l; fair air entry. ABDOMEN: Soft, nontender, liver spleen not palpable, no masses palpable. PSYCH: [Alert and oriented x3; mood and affect anxious l. MUSCULOSKELETAL:No Clubbing/cyanosis;muscles-grossly intact. OA INVESTIGATIONS, reviewed in the clinical context: 2D echo: EF 15 to 20%. Moderate to severe MR. Moderate AR. July 05: Sodium 140 potassium 3.4 BUN 35 creatinine 2.46 iron 21 TIBC 231% saturation was 9.09 transferrin 165 ferritin 619 July 04, 2024: White count 8.6 hemoglobin 9.1 platelets 243 sodium 139 potassium 3.5 BUN 37 creatinine 2.35 EKG tracing personally reviewed by me-normal sinus rhythm. First-degree block. ST-T wave changes. Chest x-ray film personally reviewed by me-cardiomegaly with venous prominence June 20, 2024: Creatinine 3.03 Assessment plan: -Acute on chronic CHF exacerbation, from systolic dysfunction EF 15 to 20%: Slow to respond IV Lasix drip at 10 mg an hour. Strict I's and O's. Fluid restriction 1500 cc/day Cardio following -Acute hypoxic respiratory failure secondary to CHF Supplemental oxygen -Recent admission with GI bleed is suspected with iron deficiency anemia. Normocytic anemia, chronic with recent worsening and black stool. EGD colonoscopy showing some esophagitis. Otherwise unremarkable. No stigmata of bleeding. Some polyps removed Protonix - Normocytic anemia from recent GI bleed. Follow H&H -Chronic kidney disease stage IV secondary to diabetic nephropathy Baseline creatinine 2.5-3 Allergy following -Diabetes mellitus, type II on oral hypoglycemic Follow Accu-Cheks diabetic diet -Essential hypertension Amlodipine 5 mg a day. Lopressor 25 mg twice daily -Hyperlipidemia Pravachol -Bleeding hemorrhoids Anusol HC -Persistent atrial fibrillation, rate controlled Lopressor 25 twice daily. Eliquis -Chronic fibromyalgia -Chronic low back pain and degenerative disc disease of the lumbar spine. -Full code Prognosis guarded. Continue current treatment plan. Past Medical History Past Medical History: Atrial Fibrillation, Coronary Artery Disease (CAD), Diabetes Mellitus, Dialysis, Hypertension, Prostate Disorder, Renal Disease Additional Past Medical History / Comment(s): Dialysis Mon, Wed, Wed History of Any Multi-Drug Resistant Organisms: None Reported Past Surgical History: Cholecystectomy, Coronary Bypass/CABG Additional Past Surgical History / Comment(s): ACL ligament replacement, CABG 3 vessel Past Anesthesia/Blood Transfusion Reactions: No Reported Reaction Past Psychological History: Anxiety Smoking Status: Never smoker Past Alcohol Use History: None Reported Past Drug Use History: None Reported
--- NOTE | 2024-07-06 19:17 | P.PN ---
Progress Note - Text Progress Note Date: 07/06/24 Chief Complaint: Multiple symptoms pleasant 78 years old male with past medical history of multiple medical problems . PCP: Dr. Erasmo Downs. Platen Press Operator Dr. Kelly Cortés. Cocktail Server Dr. Villalpando. Recently in the hospital from June 20 through June 28. Then presented with fever and dyspnea and cough and chest pain x 2 weeks. echocardiogram from 02/19/2024: Showed ejection fraction of 45 to 50%. Was having dark stools. June 26: Underwent EGD colonoscopy by Dr. Mercado. Polyps were removed. . I do not see it in the MAY. Will resume same. Increase activity. EGD: Erosive esophagitis. No stigmata of bleeding. Received IV Ferrlecit. Fuad was res umed blood cultures positive for Streptococcus pneumoniae on June 20. Patient had been getting IV ceftriaxone. Patient has a Hilario catheter. It was discontinued. Had to be reinserted prior to discharge. Patient does follow with Dr. Costello. Patient presented multitude of symptoms. Feels is not able to take care of himself at home. Short of breath. Some leg swelling. Cough not able to expe ctorate. Decreased appetite. Some aches and pains. His has been in the hospital for some time. Feels feverish but no fever documented. Normally has 3-4 small bowel movements a day. July 05: On Lasix drip. Making urine. Breathing is better. Laying flat. Eating better. Making urine. Less tired July 06: Patient is on Lasix drip this morning. Switched over to oral Demadex. Breathing is better. Patient is having flareup of gout in the left foot big toe. Red inflamed. Started oral prednisone. Active Medications Acetaminophen (Acetaminophen Tab 325 Mg Tab) 650 mg PO Q6HR PRN PRN Reason: Fever and/ or Pain Last Admin: 07/06/24 09:07 Dose: 650 mg Apixaban (Apixaban 2.5 Mg Tablet) 2.5 mg PO BID [facility]; Protocol Last Admin: 07/06/24 09:33 Dose: 2.5 mg Azelastine HCl (Azelastine 137mcg/[place]) 1 spray EA NOSTRIL BID [facility] Last Admin: 07/06/24 09:32 Dose: Not Given Budesonide/Formoterol Fumarate (Symbicort 160-4.5 Mcg Inhaler) 2 puff INHALATION RT-BID [facility] Last Admin: 07/06/24 09:31 Dose: 2 puff Dapagliflozin (Dapagliflozin Propanediol 10 Mg Tablet) 10 mg PO DAILY [facility] Last Admin: 07/06/24 09:33 Dose: 10 mg Dextrose/Water (Dextrose 50% Syringe 50 Ml) 25 ml IVP PER PROTOCOL PRN; Protocol PRN Reason: Hypoglycemia Dextrose/Water (Dextrose 50% Syringe 50 Ml) 50 ml IVP PER PROTOCOL PRN; Protocol PRN Reason: Hypoglycemia Glipizide (Glipizide 5 Mg Tab) 5 mg PO Q3D [facility] Last Admin: 07/05/24 09:54 Dose: 5 mg Hydrocortisone (Hydrocortisone 2.5% Rectal Cream 30 Gm Tube) 1 applic RECTAL DAILY [facility] Last Admin: 07/06/24 09:34 Dose: Not Given Ferric Sodium Gluconate 125 mg (/ Sodium Chloride) 110 mls @ 100 mls/hr IVPB DAILY [facility] Stop: 07/09/24 11:59 Last Admin: 07/06/24 11:49 Dose: 100 mls/hr Insulin Human Lispro (Insulin Lispro (Humalog) 100 Unit/Ml 10 Ml Vl) 0 unit SQ AC-TID [facility]; Protocol Last Admin: 07/06/24 17:13 Dose: 5 unit Metoprolol Tartrate (Metoprolol Tartrate 25 Mg Tab) 25 mg PO BID [facility] Last Admin: 07/06/24 09:33 Dose: 25 mg Miscellaneous Information (Potassium Replacement Protocol 1 Each Misc) 1 each MISCELLANE DAILY PRN; Protocol PRN Reason: Per Protocol Miscellaneous Information (Potassium Replacement Protocol 1 Each Misc) 1 each MISCELLANE DAILY PRN; Protocol PRN Reason: Per Protocol Multivitamins (Multivitamins, Thera 1 Each Tab) 1 each PO DAILY [facility] Last Admin: 07/06/24 09:33 Dose: 1 each Nitroglycerin (Nitroglycerin Sl Tabs 0.4 Mg Tab) 0.4 mg SUBLINGUAL Q5M PRN PRN Reason: Chest Pain Pantoprazole Sodium (Pantoprazole 40 Mg Tablet) 40 mg PO AC-BRKFST [facility] Last Admin: 07/05/24 09:54 Dose: 40 mg Pravastatin Sodium (Pravastatin Sodium 40 Mg Tab) 40 mg PO HS [facility] Last Admin: 07/05/24 20:01 Dose: 40 mg Prednisone (Prednisone 20 Mg Tab) 40 mg PO DAILY [facility] Sodium Bicarbonate (Sodium Bicarbonate Tab 650 Mg Tab) 650 mg PO HS [facility] Last Admin: 07/05/24 20:01 Dose: 650 mg Tamsulosin HCl (Tamsulosin 0.4 Mg Cap.Er.24h) 0.4 mg PO BID [facility] Last Admin: 07/06/24 09:33 Dose: 0.4 mg Torsemide (Torsemide 20 Mg Tab) 40 mg PO DAILY [facility] Social history: . is currently admitted to the hospital. Quite some time. Denies smoking. Alcohol. Physical examination: VITAL SIGNS: 98.1, 76, 20, 119 x 56, 90% on 3 L GENERAL: BMI 25. Laying laying in bed, breathing much improved. EYES: [Pupils equal. Conjunctiva sadaf l. HEENT: External appearance of nose and ears normal, oral cavity grossly normal. Some decreased hearing NECK: JVD unable to assess; masses not palpable. HEART: First and second heart sounds are normal; edema present. LUNGS: Respiratory rate increased l; fair air entry. ABDOMEN: Soft, nontender, liver spleen not palpable, no masses palpable. PSYCH: [Alert and oriented x3; mood and affect anxious l. MUSCULOSKELETAL:No Clubbing/cyanosis;muscles-grossly intact. OA left foot big toe first MTP joint inflamed right. INVESTIGATIONS, reviewed in the clinical context: 2D echo: EF 15 to 20%. Moderate to severe MR. Moderate AR. July 05: Sodium 140 potassium 3.4 BUN 35 creatinine 2.46 iron 21 TIBC 231% saturation was 9.09 transferrin 165 ferritin 619 July 04, 2024: White count 8.6 hemoglobin 9.1 platelets 243 sodium 139 potassium 3.5 BUN 37 creatinine 2.35 EKG tracing personally reviewed by me-normal sinus rhythm. First-degree block. ST-T wave changes. Chest x-ray film personally reviewed by me-cardiomegaly with venous prominence June 20, 2024: Creatinine 3.03 Assessment plan: -Acute on chronic CHF exacerbation, from systolic dysfunction EF 15 to 20%: Better Initially IV Lasix drip at 10 mg an hour. Discontinued today. Demadex 40 mg a day started. Strict I's and O's. Fluid restriction 1500 cc/day Cardio following -Acute hypoxic respiratory failure secondary to CHF Supplemental oxygen -Recent admission with GI bleed is suspected with iron deficiency anemia. Normocytic anemia, chronic with recent worsening and black stool. EGD colonoscopy showing some esophagitis. Otherwise unremarkable. No stigmata of bleeding. Some polyps removed Protonix - Acute gout flareup of left foot first MTP joint. Severe Oral prednisone 40 mg a day. Because of renal function cannot give other medications - Normocytic anemia from recent GI bleed. Iron deficient. Follow H&H IV ferric gluconate -Chronic kidney disease stage IV secondary to diabetic nephropathy Baseline creatinine 2.5-3 Nephrology following -Diabetes mellitus, type II on oral hypoglycemic Follow Accu-Cheks diabetic diet -Essential hypertension Amlodipine discontinued. Lopressor 25 mg twice daily -Hyperlipidemia Pravachol -Bleeding hemorrhoids Anusol HC -Persistent atrial fibrillation, rate controlled Lopressor 25 twice daily. Eliquis -Chronic fibromyalgia -Chronic low back pain and degenerative disc disease of the lumbar spine. -Full code IV ferric gluconate. Changed to oral Demadex. Oral prednisone for acute gout flareup likely precipitated from diuresis Past Medical History Past Medical History: Atrial Fibrillation, Coronary Artery Disease (CAD), Diabetes Mellitus, Dialysis, Hypertension, Prostate Disorder, Renal Disease Additional Past Medical History / Comment(s): Dialysis Mon, Wed, Fri History of Any Multi-Drug Resistant Organisms: None Reported Past Surgical History: Cholecystectomy, Coronary Bypass/CABG Additional Past Surgical History / Comment(s): ACL ligament replacement, CABG 3 vessel Past Anesthesia/Blood Transfusion Reactions: No Reported Reaction Past Psychological History: Anxiety Smoking Status: Never smoker Past Alcohol Use History: None Reported Past Drug Use History: None Reported
[2024-07-06] MEDS: predniSONE 20 MG TAB PO SCH (19:52)
[2024-07-06 20:26] LABS: Glucose,Whole Blood 320 mg/dL (70-110)
[2024-07-07 05:56] LABS: Glucose,Whole Blood 317 mg/dL (70-110)
[2024-07-07 07:32] LABS: African American GFR (CKD) 22 (>60 ml/min/1.73 sqM); Anion Gap 10 mmol/L; Blood Urea Nitrogen 46 mg/dL (9-20); Calcium 8.7 mg/dL (8.4-10.2); Carbon Dioxide 25 mmol/L (22-30); Chloride 102 mmol/L (98-107); Glucose 304 mg/dL (74-99); Magnesium 2.1 mg/dL (1.6-2.3); Non-African American GFR(CKD) 19 (>60 ml/min/1.73 sqM); Potassium 4.5 mmol/L (3.5-5.1); Sodium 137 mmol/L (137-145)
[2024-07-07] MEDS ORDERED: predniSONE 20 MG TAB PO SCH (09:00)
--- NOTE | 2024-07-07 09:42 | P.PN ---
Subjective Patient is seen in follow-up for acute kidney injury on chronic kidney disease. Renal function stable. Lasix drip discontinued July 06, 2024. Now on oral torsemide. Has Hilario catheter. Nonoliguric. No active complaints at this time. Vital signs are stable. General: No acute distress. HEENT: Head exam is unremarkable. On nasal cannula. LUNGS: No audible rhonchi or wheezes. HEART: Rate and Rhythm are regular. Abdomen: Nontender. EXTREMITITES: Trace edema. Left foot swelling noted. Objective - Vital Signs Vital signs: Vital Signs Temp 98.0 F 07/07/24 07:00 Pulse 65 07/07/24 07:00 Resp 18 07/07/24 07:00 BP 115/51 07/07/24 07:00 Pulse Ox 94 L 07/07/24 07:00 FiO2 Intake & Output 07/06/24 07/07/24 07/07/24 18:59 06:59 18:59 Intake Total 596 360 Output Total 1100 400 Balance -504 -400 360 Weight 68 kg Intake: Oral 596 360 Output: Urine 1100 400 Other: Voiding Method Indwelling Catheter Indwelling Catheter - Labs CBC & Chem 7: 07/04/24 15:17 07/07/24 06:11 Labs: Abnormal Lab Results - Last 24 Hours (Table) 07/05/24 07/06/24 07/06/24 Range/Units 20:02 07:22 11:26 BUN (9-20) mg/dL Creatinine (0.66-1.25) mg/dL Glucose (74-99) mg/dL POC Glucose (mg/dL) 195 H 242 H (70-110) mg/dL Uric Acid 11.1 H (3.5-8.5) mg/dL 07/06/24 07/06/24 07/06/24 Range/Units 16:37 16:39 20:26 BUN (9-20) mg/dL Creatinine (0.66-1.25) mg/dL Glucose (74-99) mg/dL POC Glucose (mg/dL) 395 H 379 H 320 H (70-110) mg/dL Uric Acid (3.5-8.5) mg/dL 07/07/24 07/07/24 Range/Units 05:55 06:11 BUN 46 H (9-20) mg/dL Creatinine 2.94 H (0.66-1.25) mg/dL Glucose 304 H (74-99) mg/dL POC Glucose (mg/dL) 317 H (70-110) mg/dL Uric Acid (3.5-8.5) mg/dL Assessment and Plan Plan: Assessment: 1. Chronic kidney disease stage IV with baseline creatinine near 3 secondary to biopsy-proven ATN superimposed on chronic injury. 2. Volume overload status post Lasix drip. 3. Cardiomyopathy ejection fraction of 15 to 20% with moderate to severe mitral regurgitation. 4. Diabetes mellitus. 5. Coronary disease status post CABG. 6. Hypokalemia from diuresis. Replaced. Better. 7. Anemia of chronic kidney disease. Iron deficiency noted. 8. Acute hypoxic respiratory failure. Plan: Maintain torsemide. Maintain Farxiga. Maintain IV iron. Maintain low-salt diet and fluid restriction. Continue to monitor renal function and urine output.
[2024-07-07] MEDS: TORSEMIDE 20 MG TAB PO SCH (09:55)
[2024-07-07 11:58] LABS: Glucose,Whole Blood 393 mg/dL (70-110)
--- NOTE | 2024-07-07 14:55 | P.PN ---
Subjective Progress Note Date: 07/07/24 Reason for Consult (text): acute pulmonary edema History of present illness: This is an 78-year-old male patient of Dr. Cortés with past medical history of coronary artery disease status post CABG, ischemic cardiomyopathy, paroxysmal atrial fibrillation, mitral and aortic regurgitation, chronic kidney disease. We have been asked to evaluate the patient for acute pulmonary edema. Patient was recently hospitalized and was seen by cardiology for acute hypoxic respiratory failure secondary to heart failure with reduced EF. Patient was also treated for a GI bleed and underwent EGD and was resumed on anticoagulation before discharge. Patient states that once he was home he had a gout exacerbation to the left ankle and was in severe pain. He developed shortness of breath with cough and wheezing. He had chest pain with deep breathing and coughing. His cough is nonproductive. He denies any weight increase but he noted that he had more lower extremity edema which has gotten better since he arrived. Positive PND and patient uses 2 pillows at home. He thinks he has had a little bit of a fever. No nausea or vomiting. No blood in his urine or stool. No stroke or seizure history. Patient has been started on a Lasix drip. Blood pressure 111/55, heart rate in the 70s, pulse ox 98% on 3 L nasal cannula. -EKG: Sinus rhythm with PACs, poor R wave progression, LVH, nonspecific ST changes. -Chest x-ray: -Laboratory studies: WBC 8.6, hemoglobin 9.1, sodium 140, potassium 3.4, BUN 35 creatinine 2.46. Troponin 0.044. proBNP 79,900. -Home cardiac medications: Amlodipine 5 mg daily, Eliquis 2.5 mg twice daily, metoprolol tartrate 25 mg twice daily, Nitrostat as needed, pravastatin 40 mg at bedtime, torsemide 20 mg daily -Echocardiogram performed in the office on 06/15/2024 revealed EF of 30%, mild concentric left trickle hypertrophy. Moderate aortic regurgitation, severe mitral regurgitation, mild to moderate tricuspid regurgitation, PASP 46 mmHg. Mild pulmonic regurgitation. - Lexiscan Cardiolite stress test performed in the office on 05/31/2023 revealed inconclusive EKG part of the stress test due to baseline EKG abnormalities. Abnormal nuclear scan showing cardiomyopathy with dilated left ventricle and moderate to severe LV dysfunction with a EF of 35%. 4/10 Patient seen and examined. Lasix drip was discontinued this morning. Patient's main concern is gout pain in his left foot. He denies chest pain or chest pressure. He denies shortness of breath. Potassium has been replaced. Blood pressure 109/63, heart rate 83, pulse ox 92% on 3 L nasal cannula. Repeat blood work reveals sodium 139, potassium 3.4, BUN 38 creatinine 3.05. Echocardiogram performed 07/04/2024 reveals impaired LV function of 15 to 20%, dilated LV. Moderate to severe MR. Aortic sclerosis with moderate aortic insufficiency. Mild pulmonary hypertension. 07/07 Patient seen and examined. Patient was started on Demadex 40 mg daily. Lasix drip was discontinued yesterday. He states that his breathing is better, lower extremity edema is better. He slept well last night. Blood pressure 119/57, heart rate 60s to 80s, pulse ox 95% on 3 L nasal cannula. Repeat blood work reveals sodium 137, potassium 4.5, BUN 46 creatinine 2.94. Physical examination: Gen: This is 78-year-old male in no acute respiratory distress. VS: reviewed HEENT: Head is atraumatic, normocephalic. Pupils equal, round. Sclerae is anicteric. NECK: Supple. No JVD. LUNGS: Crackles in the bilateral bases. No intercostal retractions. HEART: Regular rate and rhythm. Holosystolic murmur. ABDOMEN: Soft No tenderness. EXTREMITIES: 1+ lower extremity edema. No calf tenderness. NEUROLOGICAL: Patient is awake, alert and oriented x3. Assessment: Acute on chronic heart failure with reduced EF Paroxysmal atrial fibrillation currently in sinus rhythm Ischemic cardiomyopathy with recent EF of 30% Severe MR CAD status post CABG Gout left foot Chronic kidney disease Chronic anemia Recent GI workup negative for active bleeding Plan: Continue patient's home cardiac medications with the following changes Discontinue amlodipine Continue Farxiga 10 mg daily Continue Demadex 20 mg daily Patient is cleared for discharge from cardiology and may follow-up in the office with Dr. Cortés in 2 weeks. Nurse practitioner note has been reviewed, I agree with documented findings and plan of care. Patient was seen and examined. Objective - Vital Signs Vital signs: Vital Signs Temp 98.0 F 07/07/24 07:00 Pulse 65 07/07/24 07:00 Resp 18 07/07/24 07:00 BP 115/51 07/07/24 07:00 Pulse Ox 94 L 07/07/24 07:00 FiO2 Intake & Output 07/06/24 07/07/24 07/07/24 18:59 06:59 18:59 Intake Total 596 360 Output Total 1100 400 Balance -504 -400 360 Weight 68 kg Intake: Oral 596 360 Output: Urine 1100 400 Other: Voiding Method Indwelling Catheter Indwelling Catheter - Labs CBC & Chem 7: 07/04/24 15:17 07/07/24 06:11 Labs: Abnormal Lab Results - Last 24 Hours (Table) 07/06/24 07/06/24 07/06/24 Range/Units 16:37 16:39 20:26 BUN (9-20) mg/dL Creatinine (0.66-1.25) mg/dL Glucose (74-99) mg/dL POC Glucose (mg/dL) 395 H 379 H 320 H (70-110) mg/dL 07/07/24 07/07/24 Range/Units 05:55 06:11 BUN 46 H (9-20) mg/dL Creatinine 2.94 H (0.66-1.25) mg/dL Glucose 304 H (74-99) mg/dL POC Glucose (mg/dL) 317 H (70-110) mg/dL
[2024-07-07 16:49] LABS: Glucose,Whole Blood 410 mg/dL (70-110)
[2024-07-07] MEDS: INSULIN LISPRO (HumaLOG) 100 UNIT/ML 10 mL VL SQ ONE (17:36)
--- NOTE | 2024-07-07 18:13 | P.PN ---
Progress Note - Text Progress Note Date: 07/07/24 Chief Complaint: Multiple symptoms pleasant 78 years old male with past medical history of multiple medical problems . PCP: Dr. Erasmo Downs. 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 Kelly Cortés. Supervisor [employer] Dr. Villalpando. Recently in the hospital from June 20 through June 28. Then presented with fever and dyspnea and cough and chest pain x 2 weeks. echocardiogram from 02/19/2024: Showed ejection fraction of 45 to 50%. Was having dark stools. June 26: Underwent EGD colonoscopy by Dr. Mercado. Polyps were removed. . I do not see it in the MAY. Will resume same. Increase activity. EGD: Erosive esophagitis. No stigmata of bleeding. Received IV Ferrlecit. Fuad was res umed blood cultures positive for Streptococcus pneumoniae on June 20. Patient had been getting IV ceftriaxone. Patient has a Hilario catheter. It was discontinued. Had to be reinserted prior to discharge. Patient does follow with Dr. Costello. Patient presented multitude of symptoms. Feels is not able to take care of himself at home. Short of breath. Some leg swelling. Cough not able to expe ctorate. Decreased appetite. Some aches and pains. His has been in the hospital for some time. Feels feverish but no fever documented. Normally has 3-4 small bowel movements a day. July 05: On Lasix drip. Making urine. Breathing is better. Laying flat. Eating better. Making urine. Less tired July 06: Patient is on Lasix drip this morning. Switched over to oral Demadex. Breathing is better. Patient is having flareup of gout in the left foot big toe. Red inflamed. Started oral prednisone. July 07: Patient's gout flareup is much better. To some limiting and walking. Because of steroids Accu-Cheks are going up. Covered by insulin. Drop prednisone to 30 mg tomorrow. He did walk 80 feet with a rolling walker. Active Medications Acetaminophen (Acetaminophen Tab 325 Mg Tab) 650 mg PO Q6HR PRN PRN Reason: Fever and/ or Pain Last Admin: 07/07/24 15:08 Dose: 650 mg Apixaban (Apixaban 2.5 Mg Tablet) 2.5 mg PO BID [facility]; Protocol Last Admin: 07/07/24 09:55 Dose: 2.5 mg Azelastine HCl (Azelastine 137mcg/Wilbur) 1 spray EA NOSTRIL BID [facility] Last Admin: 07/07/24 15:09 Dose: Not Given Budesonide/Formoterol Fumarate (Symbicort 160-4.5 Mcg Inhaler) 2 puff INHALATION RT-BID [facility] Last Admin: 07/07/24 12:33 Dose: 2 puff Dapagliflozin (Dapagliflozin Propanediol 10 Mg Tablet) 10 mg PO DAILY [facility] Last Admin: 07/07/24 09:55 Dose: 10 mg Dextrose/Water (Dextrose 50% Syringe 50 Ml) 25 ml IVP PER PROTOCOL PRN; Protocol PRN Reason: Hypoglycemia Dextrose/Water (Dextrose 50% Syringe 50 Ml) 50 ml IVP PER PROTOCOL PRN; P rotocol PRN Reason: Hypoglycemia Glipizide (Glipizide 5 Mg Tab) 5 mg PO Q3D [facility] Last Admin: 07/05/24 09:54 Dose: 5 mg Hydrocortisone (Hydrocortisone 2.5% Rectal Cream 30 Gm Tube) 1 applic RECTAL DAILY [facility] Last Admin: 07/07/24 17:05 Dose: Not Given Ferric Sodium Gluconate 125 mg (/ Sodium Chloride) 110 mls @ 100 mls/hr IVPB DAILY [facility] Stop: 07/09/24 11:59 Last Admin: 07/07/24 09:56 Dose: 100 mls/hr Insulin Glargine (Insulin Glargine (Lantus) 100 Unit/Ml Syr) 16 unit SQ HS [facility] Insulin Human Lispro (Insulin Lispro (Humalog) 100 Unit/Ml 10 Ml Vl) 0 unit SQ AC-TID [facility]; Protocol Last Admin: 07/07/24 17:27 Dose: Not Given Metoprolol Tartrate (Metoprolol Tartrate 25 Mg Tab) 25 mg PO BID [facility] Last Admin: 07/07/24 09:55 Dose: 25 mg Miscellaneous Information (Potassium Replacement Protocol 1 Each Misc) 1 each MISCELLANE DAILY PRN; Protocol PRN Reason: Per Protocol Multivitamins (Multivitamins, Thera 1 Each Tab) 1 each PO DAILY [facility] Last Admin: 07/07/24 09:55 Dose: 1 each Nitroglycerin (Nitroglycerin Sl Tabs 0.4 Mg Tab) 0.4 mg SUBLINGUAL Q5M PRN PRN Reason: Chest Pain Pantoprazole Sodium (Pantoprazole 40 Mg Tablet) 40 mg PO AC-BRKFST [facility] Last Admin: 07/07/24 06:00 Dose: 40 mg Pravastatin Sodium (Pravastatin Sodium 40 Mg Tab) 40 mg PO [facility] Last Admin: 07/06/24 19:51 Dose: 40 mg Prednisone (Prednisone 20 Mg Tab) 40 mg PO DAILY [facility] Last Admin: 07/07/24 09:55 Dose: 40 mg Sodium Bicarbonate (Sodium Bicarbonate Tab 650 Mg Tab) 650 mg PO [facility] Last Admin: 07/06/24 19:52 Dose: 650 mg Tamsulosin HCl (Tamsulosin 0.4 Mg Cap.Er.24h) 0.4 mg PO BID [facility] Last Admin: 07/07/24 09:55 Dose: 0.4 mg Torsemide (Torsemide 20 Mg Tab) 40 mg PO DAILY [facility] Last Admin: 07/07/24 09:55 Dose: 40 mg Social history: . is currently admitted to the hospital. Quite some time. Denies smoking. Alcohol. Physical examination: VITAL SIGNS: 97.4, 79, 19, 112 x 69, 93% on 3 L GENERAL: BMI 25. Laying laying in bed, more comfortable EYES: [Pupils equal. Conjunctiva sadaf l. HEENT: External appearance of nose and ears normal, oral cavity grossly normal. Some decreased hearing NECK: JVD unable to assess; masses not palpable. HEART: First and second heart sounds are normal; edema present. LUNGS: Respiratory rate increased l; fair air entry. ABDOMEN: Soft, nontender, liver spleen not palpable, no masses palpable. PSYCH: [Alert and oriented x3; mood and affect anxious l. MUSCULOSKELETAL:No Clubbing/cyanosis;muscles-grossly intact. OA left foot big toe first MTP joint inflamed right: Much better. INVESTIGATIONS, reviewed in the clinical context: July 07: Potassium 4.5 BUN 46 creatinine 2.94 2D echo: EF 15 to 20%. Moderate to severe MR. Moderate AR. July 05: Sodium 140 potassium 3.4 BUN 35 creatinine 2.46 iron 21 TIBC 231% saturation was 9.09 transferrin 165 ferritin 619 July 04, 2024: White count 8.6 hemoglobin 9.1 platelets 243 sodium 139 potassium 3.5 BUN 37 creatinine 2.35 EKG tracing personally reviewed by me-normal sinus rhythm. First-degree block. ST-T wave changes. Chest x-ray film personally reviewed by me-cardiomegaly with venous prominence June 20, 2024: Creatinine 3.03 Assessment plan: -Acute on chronic CHF exacerbation, from systolic dysfunction EF 15 to 20%: Better Initially IV Lasix drip at 10 mg an hour. Discontinued today. Demadex 40 mg a day started. Strict I's and O's. Fluid restriction 1500 cc/day Cardio following -Acute hypoxic respiratory failure secondary to CHF Supplemental oxygen -Recent admission with GI bleed is suspected with iron deficiency anemia. Normocytic anemia, chronic with recent worsening and black stool. EGD colonoscopy showing some esophagitis. Otherwise unremarkable. No stigmata of bleeding. Some polyps removed Protonix - Acute gout flareup of left foot first MTP joint. Much better Decrease prednisone to 30 mg.. Because of renal function cannot give other medications - Normocytic anemia from recent GI bleed. Iron deficient. Follow H&H IV ferric gluconate -Chronic kidney disease stage IV secondary to diabetic nephropathy Baseline creatinine 2.5-3 Nephrology following -Diabetes mellitus, type II on oral hypoglycemic, uncontrolled with hyperglycemia secondary steroids Follow Accu-Cheks diabetic diet. Cover with Lantus and Humalog -Essential hypertension Amlodipine discontinued. Lopressor 25 mg twice daily -Hyperlipidemia Pravachol -Bleeding hemorrhoids Anusol HC -Persistent atrial fibrillation, rate controlled Lopressor 25 twice daily. Eliquis -Chronic fibromyalgia -Chronic low back pain and degenerative disc disease of the lumbar spine. -Full code Cover hyperglycemia with insulin. Decrease prednisone to 30 mg. Plan for discharge tomorrow because some limitation walking from the gout to much better. Past Medical History Past Medical History: Atrial Fibrillation, Coronary Artery Disease (CAD), Diabetes Mellitus, Dialysis, Hypertension, Prostate Disorder, Renal Disease Additional Past Medical History / Comment(s): Dialysis Mon, Wed, Wed History of Any Multi-Drug Resistant Organisms: None Reported Past Surgical History: Cholecystectomy, Coronary Bypass/CABG Additional Past Surgical History / Comment(s): ACL ligament replacement, CABG 3 vessel Past Anesthesia/Blood Transfusion Reactions: No Reported Reaction Past Psychological History: Anxiety Smoking Status: Never smoker Past Alcohol Use History: None Reported Past Drug Use History: None Reported
[2024-07-07 20:09] LABS: Glucose,Whole Blood 332 mg/dL (70-110)
[2024-07-07] MEDS: INSULIN GLARGINE (LANTUS) 100 UNIT/ML SYR SQ SCH (20:39)
[2024-07-08 06:00] LABS: Glucose,Whole Blood 212 mg/dL (70-110)
[2024-07-08 08:09] LABS: African American GFR (CKD) 24 (>60 ml/min/1.73 sqM); Anion Gap 11 mmol/L; Blood Urea Nitrogen 59 mg/dL (9-20); Calcium 8.8 mg/dL (8.4-10.2); Carbon Dioxide 23 mmol/L (22-30); Chloride 100 mmol/L (98-107); Glucose 192 mg/dL (74-99); Magnesium 2.1 mg/dL (1.6-2.3); Non-African American GFR(CKD) 21 (>60 ml/min/1.73 sqM); Potassium 4.1 mmol/L (3.5-5.1); Sodium 134 mmol/L (137-145)
[2024-07-08] MEDS: predniSONE 10 MG TAB PO SCH (10:19)
[2024-07-08 11:22] VITALS: TEMP 98.5
[2024-07-08 11:31] LABS: Glucose,Whole Blood 315 mg/dL (70-110)
[2024-07-08 11:36] VITALS: BP 118/55; PULSE 65; RESP 17
--- NOTE | 2024-07-08 11:48 | P.PN ---
Subjective Patient is seen for follow-up for chronic kidney disease and acute kidney injury. Admitted with volume overload Status post Lasix drip Currently maintained on oral torsemide No significant complaints today. No shortness of breath Renal function is stable. Serum creatinine decreased to 2.7 from 2.9 yesterday. Baseline creatinine around 2.9 to 3 mg/dL. Objective - Vital Signs Vital signs: Vital Signs Temp 98.5 F 07/08/24 08:00 Pulse 65 07/08/24 11:36 Resp 17 07/08/24 11:36 BP 118/55 07/08/24 11:36 Pulse Ox 96 07/08/24 11:36 FiO2 Intake & Output 07/07/24 07/08/24 07/08/24 18:59 06:59 18:59 Intake Total 1200 240 Output Total 400 480 Balance 800 -480 240 Weight 67.8 kg Intake: Oral 1200 240 Output: Urine 400 480 Other: Voiding Method Indwelling Catheter Indwelling Catheter Indwelling Catheter - Exam Patient is awake, comfortable, no acute distress. 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 Chronic kidney disease stage IV with baseline creatinine near 3 secondary to biopsy-proven ATN superimposed on chronic injury. 2. Volume overload status post Lasix drip. 3. Cardiomyopathy ejection fraction of 15 to 20% with moderate to severe mitral regurgitation. 4. Diabetes mellitus. 5. Coronary disease status post CABG. 6. Hypokalemia from diuresis. Replaced. Better. 7. Anemia of chronic kidney disease. Iron deficiency noted. 8. Acute hypoxic respiratory failure. Improved Plan: Continue current dose of torsemide Maintain salt and fluid restriction Continue with Genove[place]aga Repeat labs in a.m.
--- NOTE | 2024-07-08 14:03 | P.PN ---
Subjective HISTORY OF PRESENT ILLNESS: This is an 78-year-old male patient of Dr. Cortés with past medical history of coronary artery disease status post CABG, ischemic cardiomyopathy, paroxysmal atrial fibrillation, mitral and aortic regurgitation, chronic kidney disease. We have been asked to evaluate the patient for acute pulmonary edema. Patient was recently hospitalized and was seen by cardiology for acute hypoxic respiratory failure secondary to heart failure with reduced EF. Patient was also treated for a GI bleed and underwent EGD and was resumed on anticoagulation before discharge. Patient states that once he was home he had a gout exacerbation to the left ankle and was in severe pain. He developed shortness of breath with cough and wheezing. He had chest pain with deep breathing and coughing. His cough is nonproductive. He denies any weight increase but he noted that he had more lower extremity edema which has gotten better since he arrived. Positive PND and patient uses 2 pillows at home. He thinks he has had a little bit of a fever. No nausea or vomiting. No blood in his urine or stool. No stroke or seizure history. Patient has been started on a Lasix drip. Blood pressure 111/55, heart rate in the 70s, pulse ox 98% on 3 L nasal cannula. -EKG: Sinus rhythm with PACs, poor R wave progression, LVH, nonspecific ST changes. -Chest x-ray: -Laboratory studies: WBC 8.6, hemoglobin 9.1, sodium 140, potassium 3.4, BUN 35 creatinine 2.46. Troponin 0.044. proBNP 79,900. -Home cardiac medications: Amlodipine 5 mg daily, Eliquis 2.5 mg twice daily, metoprolol tartrate 25 mg twice daily, Nitrostat as needed, pravastatin 40 mg at bedtime, torsemide 20 mg daily -Echocardiogram performed in the office on 06/15/2024 revealed EF of 30%, mild concentric left trickle hypertrophy. Moderate aortic regurgitation, severe mitral regurgitation, mild to moderate tricuspid regurgitation, PASP 46 mmHg. Mild pulmonic regurgitation. - Lexiscan Cardiolite stress test performed in the office on 05/31/2023 revealed inconclusive EKG part of the stress test due to baseline EKG abnormalities. Abnormal nuclear scan showing cardiomyopathy with dilated left ventricle and moderate to severe LV dysfunction with a EF of 35%. 07/06 Patient seen and examined. Lasix drip was discontinued this morning. Patient's main concern is gout pain in his left foot. He denies chest pain or chest pressure. He denies shortness of breath. Potassium has been replaced. Blood pressure 109/63, heart rate 83, pulse ox 92% on 3 L nasal cannula. Repeat blood work reveals sodium 139, potassium 3.4, BUN 38 creatinine 3.05. Echocardiogram performed 07/04/2024 reveals impaired LV function of 15 to 20%, dilated LV. Moderate to severe MR. Aortic sclerosis with moderate aortic insufficiency. Mild pulmonary hypertension. 07/07 Patient seen and examined. Patient was started on Demadex 40 mg daily. Lasix drip was discontinued yesterday. He states that his breathing is better, lower extremity edema is better. He slept well last night. Blood pressure 119/57, heart rate 60s to 80s, pulse ox 95% on 3 L nasal cannula. Repeat blood work reveals sodium 137, potassium 4.5, BUN 46 creatinine 2.94. 07/08/2024 Patient examined this morning at the bedside. Patient is sitting on the side of the bed. He denies chest pain or pressure. He reports improvement in shortness of breath. He also reports improvement in his pain in his foot. Patient states he is being discharged home today. PHYSICAL EXAM: VITAL SIGNS: Reviewed. GENERAL: Well-developed in no acute distress. NECK: Supple. No JVD or thyromegaly LUNGS: Respirations even and unlabored. Lungs essentially clear to auscultation bilaterally. HEART: Regular rate and rhythm. S1 and S2 heard. Systolic murmur noted. EXTREMITIES: Normal range of motion. No clubbing or cyanosis. Peripheral pulses intact. No lower extremity edema ASSESSMENT: Acute on chronic heart failure with reduced EF Paroxysmal atrial fibrillation currently in sinus rhythm Ischemic cardiomyopathy with recent EF of 30% Severe MR CAD status post CABG Gout left foot Chronic kidney disease Chronic anemia Recent GI workup negative for active bleeding PLAN: Continue current cardiac medications including Demadex, pravastatin, metoprolol, Eliquis, and Farxiga Patient is stable for discharge home today from a cardiac standpoint Patient to follow-up postdischarge in the office with Dr. Cortés Nurse practitioner note has been reviewed by physician. Signing provider agrees with the documented findings, assessment, and plan of care documented by PHP ENGINEER as a scribe. Objective - Vital Signs Vital signs: Vital Signs Temp 98.5 F 07/08/24 08:00 Pulse 65 07/08/24 13:40 Resp 17 07/08/24 13:40 BP 118/55 07/08/24 11:36 Pulse Ox 96 07/08/24 11:36 FiO2 Intake & Output 07/07/24 07/08/24 07/08/24 18:59 06:59 18:59 Intake Total 1200 240 Output Total 400 480 Balance 800 -480 240 Weight 67.8 kg Intake: Oral 1200 240 Output: Urine 400 480 Other: Voiding Method Indwelling Catheter Indwelling Catheter Indwelling Catheter - Labs CBC & Chem 7: 07/04/24 15:17 07/08/24 06:44 Labs: Abnormal Lab Results - Last 24 Hours (Table) 07/07/24 07/07/24 07/08/24 Range/Units 16:42 20:07 05:58 Sodium (137-145) mmol/L BUN (9-20) mg/dL Creatinine (0.66-1.25) mg/dL Glucose (74-99) mg/dL POC Glucose (mg/dL) 410 H 332 H 212 H (70-110) mg/dL 07/08/24 07/08/24 Range/Units 06:44 11:29 Sodium 134 L (137-145) mmol/L BUN 59 H (9-20) mg/dL Creatinine 2.72 H (0.66-1.25) mg/dL Glucose 192 H (74-99) mg/dL POC Glucose (mg/dL) 315 H (70-110) mg/dL
--- NOTE | 2024-07-08 19:07 | P.DS ---
Providers Date of admission: 07/04/24 16:51 Expected date of discharge: 07/08/24 Attending physician: Raj Walton Consults: 07/04/24 16:28 Consult Physician Routine Consulting Provider: [facility] Consult Reason/Comments: Acute pulmonary edema Do you want consulting provider notified?: Yes 07/04/24 20:10 Consult Physician Routine Consulting Provider: Benja Luu Consult Reason/Comments: CKD Do you want consulting provider notified?: Yes Primary care physician: Erasmo Downs [facility] Course: Chief Complaint: Multiple symptoms pleasant 78 years old male with past medical history of multiple medical problems . PCP: Dr. Erasmo Downs. [employer] Se[employer] Dr. Kelly Cortés. 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 Recently in the hospital from June 20 through June 28. Then presented with fever and dyspnea and cough and chest pain x 2 weeks. echocardiogram from 02/19/2024: Showed ejection fraction of 45 to 50%. Was having dark stools. June 26: Underwent EGD colonoscopy by Dr. Mercado. Polyps were removed. . I do not see it in the MAR. Will resume same. Increase activity. EGD: Erosive esophagitis. No stigmata of bleeding. Received IV Ferrlecit. Eliquis was resumed blood cultures positive for Streptococcus pneumoniae on June 20. Patient had been getting IV ceftriaxone. Patient has a Hilario catheter. It was discontinu ed. Had to be reinserted prior to discharge. Patient does follow with Dr. Costello. Patient presented multitude of symptoms. Feels is not able to take care of himself at home. Short of breath. Some leg swelling. Cough not able to expectorate. Decreased appetite. Some aches and pains. His has been in the hospital for some time. Feels feverish but no fever documented. Normally has 3-4 small bowel movements a day. July 05: On Lasix drip. Making urine. Breathing is better. Laying flat. Eating better. Making urine. Less tired July 06: Patient is on Lasix drip this morning. Switched over to oral Demadex. Breathing is better. Patient is having flareup of gout in the left foot big toe. Red inflamed. Started oral prednisone. July 07: Patient's gout flareup is much better. To some limiting and walking. Because of steroids Accu-Cheks are going up. Covered by insulin. Drop prednisone to 30 mg tomorrow. He did walk 80 feet with a rolling walker. July 08: Gout much improved. Will give a short rapid taper of prednisone. Patient has a walker to go home. His is at home from the hospital. Did advise him to him and his to go to assisted living. Social history: . is currently admitted to the hospital. Quite some time. Denies smoking. Alcohol. Physical examination: VITAL SIGNS: 98.5, 65, 17, 118 x 55, 96% room air GENERAL: BMI 25. Laying laying in bed, comfortable EYES: [Pupils equal. Conjunctiva sadaf l. HEENT: External appearance of nose and ears normal, oral cavity grossly normal. Some decreased hearing NECK: JVD unable to assess; masses not palpable. HEART: First and second heart sounds are normal; edema present. LUNGS: Respiratory rate increased l; fair air entry. ABDOMEN: Soft, nontender, liver spleen not palpable, no masses palpable. PSYCH: [Alert and oriented x3; mood and affect anxious l. MUSCULOSKELETAL:No Clubbing/cyanosis;muscles-grossly intact. OA left foot big toe first MTP joint inflamed right: Greatly improved INVESTIGATIONS, reviewed in the clinical context: July 08: Potassium 4.1 BUN 59 creatinine 2.72 July 07: Potassium 4.5 BUN 46 creatinine 2.94 2D echo: EF 15 to 20%. Moderate to severe MR. Moderate AR. July 05: Sodium 140 potassium 3.4 BUN 35 creatinine 2.46 iron 21 TIBC 231% saturation was 9.09 transferrin 165 ferritin 619 July 04, 2024: White count 8.6 hemoglobin 9.1 platelets 243 sodium 139 potassium 3.5 BUN 37 creatinine 2.35 EKG tracing personally reviewed by me-normal sinus rhythm. First-degree block. ST-T wave changes. Chest x-ray film personally reviewed by me-cardiomegaly with venous prominence June 20, 2024: Creatinine 3.03 Assessment plan: -Acute on chronic CHF exacerbation, from systolic dysfunction EF 15 to 20%: Better Initially IV Lasix drip at 10 mg an hour. Discontinued today. Demadex 40 mg a day Strict I's and O's. Fluid restriction 1500 cc/day Cardio following -Acute hypoxic respiratory failure secondary to CHF: Resolved Supplemental oxygen -Recent admission with GI bleed is suspected with iron deficiency anemia. Normocytic anemia, chronic with recent worsening and black stool. EGD colonoscopy showing some esophagitis. Otherwise unremarkable. No stigmata of bleeding. Some polyps removed Protonix - Acute gout flareup of left foot first MTP joint. Much better Decrease prednisone to 30 mg.. Because of renal function cannot give other medications Discharge on rapid prednisone taper - Normocytic anemia from recent GI bleed. Iron deficient. Follow H&H IV ferric gluconate -Chronic kidney disease stage IV secondary to diabetic nephropathy Baseline creatinine 2.5-3 Nephrology following -Diabetes mellitus, type II on oral hypoglycemic, uncontrolled with hyper glycemia secondary steroids Follow Accu-Cheks diabetic diet. Cover with Lantus and Humalog -Essential hypertension Amlodipine discontinued. Lopressor 25 mg twice daily -Hyperlipidemia Pravachol -Bleeding hemorrhoids Anusol HC -Persistent atrial fibrillation, rate controlled Lopressor 25 twice daily. Eliquis -Chronic fibromyalgia -Chronic low back pain and degenerative disc disease of the lumbar spine. -Full code Disposition: Home Past Medical History Past Medical History: Atrial Fibrillation, Coronary Artery Disease (CAD), Diabetes Mellitus, Dialysis, Hypertension, Prostate Disorder, Renal Disease Additional Past Medical History / Comment(s): Dialysis Mon, Wed, Fri History of Any Multi-Drug Resistant Organisms: None Reported Past Surgical History: Cholecystectomy, Coronary Bypass/CABG Additional Past Surgical History / Comment(s): ACL ligament replacement, CABG 3 vessel Past Anesthesia/Blood Transfusion Reactions: No Reported Reaction Past Psychological History: Anxiety Smoking Status: Never smoker Past Alcohol Use History: None Reported Past Drug Use History: None Reported Plan - Discharge Summary Discharge Rx Participant: No New Discharge Prescriptions: New Dapagliflozin Propanediol [Farxiga] 10 mg PO DAILY #30 tab predniSONE 0 mg PO DIRECTED #12 tab Acetaminophen Tab [Tylenol] 650 mg PO Q6HR PRN tab PRN Reason: Fever And/ Or Pain Continue Tamsulosin HCl [Flomax] 0.4 mg PO BID Nitroglycerin Sl Tabs [Nitrostat] 0.4 mg SL Q5M PRN PRN Reason: Chest Pain glyBURIDE [Diabeta] 2.5 mg PO Q3D Azelastine HCl [Astelin Nasal [place]] 1 spray EA NOSTRIL BID Sodium Bicarbonate Tab 650 mg PO HS Apixaban [Eliquis] 2.5 mg PO BID Mv-Min/Folic/K1/Lycopen/Lutein [Centrum Silver Men Tablet] 1 tab PO DAILY Pantoprazole [Protonix] 40 mg PO AC-BRKFST #30 tab Metoprolol Tartrate [Lopressor] 25 mg PO BID Pravastatin Sodium [Pravachol] 40 mg PO HS Budesonide/Formoterol Fumarate [Symbicort 160-4.5 Mcg Inhaler] 2 puff INHALATION RT-BID Hydrocortisone [Anusol-Hc] 1 applic RECTAL DAILY #30 gm Changed Torsemide [Demadex] 40 mg PO DAILY #0 Discontinued amLODIPine [Norvasc] 5 mg PO DAILY Cefuroxime [Ceftin] 250 mg PO BID #20 tab Amoxic-Pot Clav 875-125Mg [Augmentin 875-125] 1 tab PO Q12HR 10 Days #20 tab Discharge Medication List Metoprolol Tartrate [Lopressor] 25 mg PO BID 02/11/22 [History] Nitroglycerin Sl Tabs [Nitrostat] 0.4 mg SL Q5M PRN 02/11/22 [History] Pravastatin Sodium [Pravachol] 40 mg PO HS 02/11/22 [History] Tamsulosin HCl [Flomax] 0.4 mg PO BID 02/11/22 [History] Budesonide/Formoterol Fumarate [Symbicort 160-4.5 Mcg Inhaler] 2 puff INHALATION RT-BID 06/05/22 [History] glyBURIDE [Diabeta] 2.5 mg PO Q3D 11/02/22 [History] Apixaban [Eliquis] 2.5 mg PO BID 06/21/24 [History] Azelastine HCl [Astelin Nasal [place]] 1 spray EA NOSTRIL BID 06/21/24 [History] Mv-Min/Folic/K1/Lycopen/Lutein [Centrum Silver Men Tablet] 1 tab PO DAILY 06/21/24 [History] Sodium Bicarbonate Tab 650 mg PO HS 06/21/24 [History] Hydrocortisone [Anusol-Hc] 1 applic RECTAL DAILY #30 gm 06/27/24 [Rx] Pantoprazole [Protonix] 40 mg PO AC-BRKFST #30 tab 06/28/24 [Rx] Acetaminophen Tab [Tylenol] 650 mg PO Q6HR PRN tab 07/07/24 [Rx] Dapagliflozin Propanediol [Farxiga] 10 mg PO DAILY #30 tab 07/07/24 [Rx] Torsemide [Demadex] 40 mg PO DAILY #0 07/07/24 [Rx] predniSONE 0 mg PO DIRECTED #12 tab 07/08/24 [Rx] Follow up Appointment(s)/Referral(s): Lindsay Rodriguez MD [STAFF PHYSICIAN] - 1 Week Erasmo Downs MD [Primary Care Provider] - 1-2 days [facility] [NON-STAFF] - Kevin Cortés MD [STAFF PHYSICIAN] - 2 Weeks Darius Costello MD [STAFF PHYSICIAN] - 1 Week Patient Instructions/Handouts: Pulmonary Edema (DC), Gout (GEN) Activity/Diet/Wound Care/Special Instructions: fluid restrict 1800 cc/day Discharge Disposition: HOME SELF-CARE
== END 2024-07-08 13:45 | disposition home or self-care (01) | DRG 291 ==
LOC: EC 14:17 → 3SCARD 16:50 → OBSVTOIN 16:51 → 3SCARD 17:41
PROVIDERS: ADMIT Hospitalist; ATTEND Hospitalist
DX: I13.0 Hypertensive heart and chronic kidney disease with heart failure and stage 1 through stage 4 chronic kidney disease, or unspecified chronic kidney disease (principal); I50.23 Acute on chronic systolic (congestive) heart failure; J96.01 Acute respiratory failure with hypoxia; N17.0 Acute kidney failure with tubular necrosis; N18.4 Chronic kidney disease, stage 4 (severe); E11.22 Type 2 diabetes mellitus with diabetic chronic kidney disease; D63.1 Anemia in chronic kidney disease; I34.0 Nonrheumatic mitral (valve) insufficiency; I48.19 Other persistent atrial fibrillation; E11.65 Type 2 diabetes mellitus with hyperglycemia; I48.0 Paroxysmal atrial fibrillation; Z95.1 Presence of aortocoronary bypass graft; E78.5 Hyperlipidemia, unspecified; M10.9 Gout, unspecified; K64.9 Unspecified hemorrhoids; M79.7 Fibromyalgia; G89.29 Other chronic pain; M54.50 Low back pain, unspecified; M51.369 Other intervertebral disc degeneration, lumbar region without mention of lumbar back pain or lower extremity pain; I25.5 Ischemic cardiomyopathy; E87.6 Hypokalemia; K20.90 Esophagitis, unspecified without bleeding; I25.10 Atherosclerotic heart disease of native coronary artery without angina pectoris; Z79.899 Other long term (current) drug therapy; Z88.2 Allergy status to sulfonamides; Z88.8 Allergy status to other drugs, medicaments and biological substances; Z79.01 Long term (current) use of anticoagulants; Z79.51 Long term (current) use of inhaled steroids; Z79.84 Long term (current) use of oral hypoglycemic drugs
CPT/HCPCS: 36415; 71046; 80048; 80053; 82728; 83540; 83550; 83605; 83735; 83880; 84484; 84550; 85025; 85610; 85730; 87636; 93005; 93306; 94640; 94760; 96365; 96375; 99291

== ENCOUNTER 2024-08-18 13:37 | Inpatient (IN) | payer MEDICARE ==
--- NOTE | 2024-08-18 14:04 | ED ---
General Adult HPI - General Chief complaint: Shortness of Breath Stated complaint: Edema Time Seen by Provider: 08/18/24 13:41 Source: patient, RN notes reviewed Mode of arrival: EMS Limitations: no limitations - History of Present Illness Initial comments: Patient is an 79-year-old male present to the emergency department with dyspnea. Symptoms have progressed over the past month. Patient was in the hospital prior to that. Patient has orthopnea and exertional dyspnea. Patient has leg edema that has also worsened. Patient is only able to walk 8 or 10 feet. No chest pain. - Related Data Home Medications Medication Instructions Recorded Confirmed Metoprolol Tartrate [Lopressor] 25 mg PO BID 02/11/22 07/04/24 Nitroglycerin Sl Tabs [Nitrostat] 0.4 mg SL Q5M PRN 02/11/22 07/04/24 Pravastatin Sodium [Pravachol] 40 mg PO HS 02/11/22 07/04/24 Tamsulosin HCl [Flomax] 0.4 mg PO BID 02/11/22 07/04/24 Budesonide/Formoterol Fumarate 2 puff INHALATION RT-BID 06/05/22 07/04/24 [Symbicort 160-4.5 Mcg Inhaler] glyBURIDE [Diabeta] 2.5 mg PO Q3D 11/02/22 07/04/24 Apixaban [Eliquis] 2.5 mg PO BID 06/21/24 07/04/24 Azelastine HCl [Astelin Nasal 1 spray EA NOSTRIL BID 06/21/24 07/04/24 Pool] Mv-Min/Folic/K1/Lycopen/Lutein 1 tab PO DAILY 06/21/24 07/04/24 [Centrum Silver Men Tablet] Sodium Bicarbonate Tab 650 mg PO HS 06/21/24 07/04/24 Previous Rx's Medication Instructions Recorded Hydrocortisone [Anusol-Hc] 1 applic RECTAL DAILY #30 gm 06/27/24 Pantoprazole [Protonix] 40 mg PO AC-BRKFST #30 tab 06/28/24 Acetaminophen Tab [Tylenol] 650 mg PO Q6HR PRN tab 07/07/24 Dapagliflozin Propanediol [Farxiga] 10 mg PO DAILY #30 tab 07/07/24 Torsemide [Demadex] 40 mg PO DAILY #0 07/07/24 predniSONE 0 mg PO DIRECTED #12 tab 07/08/24 Allergies Allergy/AdvReac Type Severity Reaction Status Date / Time duloxetine [From Cymbalta] Allergy Rash/Hives Verified 08/18/24 13:43 enalaprilat [From Vasotec] Allergy Unknown Verified 08/18/24 13:43 levofloxacin [From Levaquin] Allergy Rash/Hives Verified 08/18/24 13:43 saxagliptin [From Onglyza] Allergy Rash/Hives Verified 08/18/24 13:43 sulfamethoxazole Allergy Rash/Hives Verified 08/18/24 13:43 [From Bactrim] trimethoprim [From Bactrim] Allergy Rash/Hives Verified 08/18/24 13:43 Review of Systems ROS Statement: Those systems with pertinent positive or pertinent negative responses have been documented in the HPI. ROS Other: All systems not noted in ROS Statement are negative. Constitutional: Denies: fever Eyes: Denies: eye pain ENT: Denies: ear pain Respiratory: Reports: as per HPI Cardiovascular: Reports: dyspnea on exertion, orthopnea, edema. Denies: chest pain Endocrine: Reports: fatigue Gastrointestinal: Denies: abdominal pain Musculoskeletal: Denies: back pain Past Medical History Past Medical History: Atrial Fibrillation, Coronary Artery Disease (CAD), Heart Failure, Diabetes Mellitus, Dialysis, Hypertension, Prostate Disorder, Renal Disease Additional Past Medical History / Comment(s): Dialysis Mon, Wed, Fri History of Any Multi-Drug Resistant Organisms: None Reported Past Surgical History: Cholecystectomy, Coronary Bypass/CABG Additional Past Surgical History / Comment(s): 07 ACL ligament replacement, CABG 3 vessel Past Anesthesia/Blood Transfusion Reactions: No Reported Reaction Past Psychological History: Anxiety Smoking Status: Never smoker Past Alcohol Use History: None Reported Past Drug Use History: None Reported - Past Family History Father Family Medical History: Cancer Additional Family Medical History / Comment(s): pancreatic General Exam Limitations: no limitations General appearance: alert, in no apparent distress Head exam: Present: normocephalic Eye exam: Present: normal appearance Neck exam: Present: normal inspection Respiratory exam: Present: normal lung sounds bilaterally Cardiovascular Exam: Present: regular rate, normal rhythm GI/Abdominal exam: Present: soft. Absent: tenderness Extremities exam: Present: pedal edema. Absent: calf tenderness Neurological exam: Present: alert Psychiatric exam: Present: normal affect, normal mood Skin exam: Present: normal color Course Vital Signs 08/18/24 08/18/24 13:40 14:34 Temperature 98 F Pulse Rate 70 69 Respiratory 24 24 Rate Blood Pressure 120/69 124/72 O2 Sat by Pulse 99 97 Oximetry EKG Findings - EKG Results: EKG: interpreted by RENETTAD (Anterior/septal Q waves), normal axis, normal ST/T EKG shows: atrial fibrillation Medical Decision Making - Medical Decision Making Was pt. sent in by a medical professional or institution (, [facility], FOLDER MACHINE ADJUSTER, urgent care, hospital, or detention...) When possible be specific @ -No Did you speak to anyone other than the patient for history (EMS, parent, family, police, friend...)? What history was obtained from this source @ -No Did you review nursing and triage notes (agree or disagree)? Why? @ -I reviewed and agree with nursing and triage notes Were old charts reviewed (outside hosp., previous admission, EMS record, old EKG, old radiological studies, urgent care reports/EKG's, detention records)? Report findings @ -Previous admission reviewed including imaging and results Differential Diagnosis (chest pain, altered mental status, abdominal pain women, abdominal pain men, vaginal bleeding, weakness, fever, dyspnea, syncope, headache, dizziness, GI bleed, back pain, seizure, CVA, palpatations, mental health, musculoskeletal)? @ -Differential Dyspnea: Coronary syndrome, arrhythmia, tamponade, asthma, COPD, pulmonary embolism, pneumonia, pneumothorax, pulmonary effusion, anaphylaxis, diabetic ketoacidosis, flailed chest, pulmonary contusion, diaphragmatic rupture, anemia, neuromuscular, this is not meant to be an all-inclusive list. EKG interpreted by me (3pts min.). @ -As above X-rays interpreted by me (1pt min.). @ -Chest x-ray shows cardiomegaly and CHF CT interpreted by me (1pt min.). @ -None done U/S interpreted by me (1pt. min.). @ -None done What testing was considered but not performed or refused? (CT, X-rays, U/S, labs)? Why? @ -None What meds were considered but not given or refused? Why? @ -None Did you discuss the management of the patient with other professionals (professionals i.e. , PA, FOLDER MACHINE ADJUSTER, lab, RT, psych nurse, social service coordinator, bowling ball grader and marker, teacher, environmental health officer, case worker)? Give summary @ -Case was discussed in detail with Dr. Degroot who will admit covering Dr. Rodriges Was smoking cessation discussed for >3mins.? @ -No Was critical care preformed (if so, how long)? @ -No Were there social determinants of health that impacted care today? How? (Homelessness, low income, unemployed, alcoholism, drug addiction, transportation, low edu. Level, literacy, decrease access to med. care, [facility], rehab)? @ -No Was there de-escalation of care discussed even if they declined (Discuss DNR or withdrawal of care, Hospice)? DNR status @ -No What co-morbidities impacted this encounter? (DM, HTN, Smoking, COPD, CAD, Cancer, CVA, ARF, Chemo, Hep., AIDS, mental health diagnosis, sleep apnea, morbid obesity)? @ -History of CHF Was patient admitted / discharged? Hospital course, mention meds given and route, prescriptions, significant lab abnormalities, going to OR and other pertinent info. @ -Patient presents with dyspnea and leg edema. X-ray concerning for CHF as well as blood work. Patient will be admitted with cardiac consult. Patient reevaluated and updated. Admission orders written. Undiagnosed new problem with uncertain prognosis? @ -No Drug Therapy requiring intensive monitoring for toxicity (Heparin, Nitro, Insulin, Cardizem)? @ -No Were any procedures done? @ -No Diagnosis/symptom? @ -CHF Acute, or Chronic, or Acute on Chronic? @ -Acute Uncomplicated (without systemic symptoms) or Complicated (systemic symptoms)? @ -Default Side effects of treatment? @ -No Exacerbation, Progression, or Severe Exacerbation? @ -No Poses a threat to life or bodily function? How? (Chest pain, USA, AR, pneumonia, PE, COPD, DKA, ARF, appy, cholecystitis, CVA, Diverticulitis, Homicidal, Suicidal, threat to staff... and all critical care pts) @ -Threat to cardiac function - Lab Data Result diagrams: 08/18/24 14:10 08/18/24 14:10 Lab Results 08/18/24 08/18/24 08/18/24 Range/Units 14:10 14:10 14:10 WBC 6.46 (4.50-10.00) 10*3/uL RBC 3.30 L (4.40-5.60) 10*6/uL Hgb 10.4 L (13.0-17.0) g/dL Hct 32.8 L (39.6-50.0) % MCV 99.4 H (80.0-97.0) fL MCH 31.5 (27.0-32.0) pg MCHC 31.7 L (32.0-37.0) g/dL Plt Count 156 (140-440) 10*3/uL MPV 11.7 (9.5-12.2) fL Immature Gran % (Auto) 0.3 % Neutrophils % 70.2 % Lymphocytes % 22.0 % Monocytes % 6.7 % Eosinophils % 0.3 % Basophils % 0.5 % Immature Gran # 0.02 (0.00-0.04) 10*3/uL Neutrophils # 4.54 (1.80-7.70) 10*3/uL Lymphocytes # 1.42 (0.90-5.00) 10*3/uL Monocytes # 0.43 (0.20-1.00) 10*3/uL Eosinophils # 0.02 L (0.04-0.35) 10*3/uL Basophils # 0.03 (0.00-0.10) 10*3/uL PT 13.8 H (10.0-12.5) sec INR 1.3 H (<1.2) APTT 31.1 H (22.0-30.0) sec Sodium 140 (137-145) mmol/L Potassium 3.7 (3.5-5.1) mmol/L Chloride 108 H (98-107) mmol/L Carbon Dioxide 19 L (22-30) mmol/L Anion Gap 13 mmol/L BUN 58 H (9-20) mg/dL Creatinine 2.75 H (0.66-1.25) mg/dL Est GFR (CKD-EPI)AfAm 24 (>60 ml/min/1.73 sqM) Est GFR (CKD-EPI)NonAf 21 (>60 ml/min/1.73 sqM) Glucose 177 H (74-99) mg/dL Plasma Lactic Acid Sawyer (0.7-2.0) mmol/L Calcium 9.1 (8.4-10.2) mg/dL Magnesium 2.0 (1.6-2.3) mg/dL Total Bilirubin 0.9 (0.2-1.3) mg/dL AST 22 (17-59) U/L ALT 24 (4-49) U/L Alkaline Phosphatase 94 (38-126) U/L Troponin I (0.000-0.034) ng/mL NT-Pro-B Natriuret Pep 80507 pg/mL Total Protein 6.3 (6.3-8.2) g/dL Albumin 3.7 (3.5-5.0) g/dL 08/18/24 08/18/24 Range/Units 14:10 14:10 WBC (4.50-10.00) 10*3/uL RBC (4.40-5.60) 10*6/uL Hgb (13.0-17.0) g/dL Hct (39.6-50.0) % MCV (80.0-97.0) fL MCH (27.0-32.0) pg MCHC (32.0-37.0) g/dL Plt Count (140-440) 10*3/uL MPV (9.5-12.2) fL Immature Gran % (Auto) % Neutrophils % % Lymphocytes % % Monocytes % % Eosinophils % % Basophils % % Immature Gran # (0.00-0.04) 10*3/uL Neutrophils # (1.80-7.70) 10*3/uL Lymphocytes # (0.90-5.00) 10*3/uL Monocytes # (0.20-1.00) 10*3/uL Eosinophils # (0.04-0.35) 10*3/uL Basophils # (0.00-0.10) 10*3/uL PT (10.0-12.5) sec INR (<1.2) APTT (22.0-30.0) sec Sodium (137-145) mmol/L Potassium (3.5-5.1) mmol/L Chloride (98-107) mmol/L Carbon Dioxide (22-30) mmol/L Anion Gap mmol/L BUN (9-20) mg/dL Creatinine (0.66-1.25) mg/dL Est GFR (CKD-EPI)AfAm (>60 ml/min/1.73 sqM) Est GFR (CKD-EPI)NonAf (>60 ml/min/1.73 sqM) Glucose (74-99) mg/dL Plasma Lactic Acid Sawyer 2.4 H* (0.7-2.0) mmol/L Calcium (8.4-10.2) mg/dL Magnesium (1.6-2.3) mg/dL Total Bilirubin (0.2-1.3) mg/dL AST (17-59) U/L ALT (4-49) U/L Alkaline Phosphatase (38-126) U/L Troponin I 0.042 H* (0.000-0.034) ng/mL NT-Pro-B Natriuret Pep pg/mL Total Protein (6.3-8.2) g/dL Albumin (3.5-5.0) g/dL Disposition Clinical Impression: Congestive heart failure Disposition: ADMITTED IP TO THIS HOSP Is patient prescribed a controlled substance at d/c from ED?: No Referrals: Gera Rodriges III, MD [Primary Care Provider] - 1-2 days Time of Disposition: 15:39
[2024-08-18 14:17] LABS: Basophils # (A) 0.03 10*3/uL (0.00-0.10); Basophils % (A) 0.5 %; Eosinophils # (A) 0.02 10*3/uL (0.04-0.35); Eosinophils % (A) 0.3 %; HCT 32.8 % (39.6-50.0); HGB 10.4 g/dL (13.0-17.0); Lymphocytes # (A) 1.42 10*3/uL (0.90-5.00); MCH 31.5 pg (27.0-32.0); MCHC 31.7 g/dL (32.0-37.0); MCV 99.4 fL (80.0-97.0); Mean Platelet Volume 11.7 fL (9.5-12.2); Monocytes # (A) 0.43 10*3/uL (0.20-1.00); Monocytes % (A) 6.7 %; Neutrophils # (A) 4.54 10*3/uL (1.80-7.70); Neutrophils % (A) 70.2 %; Platelet Count 156 10*3/uL (140-440); WBC 6.46 10*3/uL (4.50-10.00)
[2024-08-18] MEDS: FUROSEMIDE 10 MG/ML 4 ML VIAL IV STA (14:29)
[2024-08-18 14:33] LABS: ALT 24 U/L (4-49); AST 22 U/L (17-59); African American GFR (CKD) 24 (>60 ml/min/1.73 sqM); Albumin 3.7 g/dL (3.5-5.0); Alkaline Phosphatase 94 U/L (38-126); Anion Gap 13 mmol/L; Blood Urea Nitrogen 58 mg/dL (9-20); Calcium 9.1 mg/dL (8.4-10.2); Carbon Dioxide 19 mmol/L (22-30); Chloride 108 mmol/L (98-107); Glucose 177 mg/dL (74-99); Non-African American GFR(CKD) 21 (>60 ml/min/1.73 sqM); Potassium 3.7 mmol/L (3.5-5.1); Sodium 140 mmol/L (137-145); Total Bilirubin 0.9 mg/dL (0.2-1.3); Total Protein 6.3 g/dL (6.3-8.2)
[2024-08-18 14:54] LABS: INR 1.3 (<1.2); Partial Thromboplastin Time 31.1 sec (22.0-30.0); Prothrombin Time 13.8 sec (10.0-12.5)
[2024-08-18 15:03] LABS: NT-Pro-B-Type Natriuretic Pept 82800 pg/mL
--- NOTE | 2024-08-18 15:20 | XR ---
EXAMINATION TYPE: XR chest 2V DATE OF EXAM: 08/18/2024 3:08 PM COMPARISON: 07/14/2024 CLINICAL INDICATION: Male, 79 years old with history of difficulty breathing, shortness of breath TECHNIQUE: AP and lateral views FINDINGS: Median sternotomy wires are present with post-CABG clips. Heart moderately enlarged. Diffuse intersti tial densities. Small bilateral pleural effusions. IMPRESSION: Moderate cardiomegaly with CHF and pulmonary vascular congestion. Small bilateral pleural effusions. [facility], Workstation: [email or web address], 08/18/2024 3:17 PM
[2024-08-18] MEDS: NITROGLYCERIN OINT 1 INCH/GM PACKET TOPICAL SCH (18:04)
[2024-08-18] MEDS: ASPIRIN 325 MG TAB PO STA (18:06)
[2024-08-18 20:47] LABS: Glucose,Whole Blood 145 mg/dL (70-110)
[2024-08-18] MEDS ORDERED: ACETAMINOPHEN TAB 325 MG TAB PO PRN (20:53)
[2024-08-18] MEDS: FUROSEMIDE 10 MG/ML 4 ML VIAL IV SCH (21:57)
[2024-08-18] MEDS: TAMSULOSIN 0.4 MG CAP.ER.24H PO SCH (21:57)
[2024-08-18] MEDS: APIXABAN 2.5 MG TABLET PO SCH (21:57)
[2024-08-18] MEDS: PRAVASTATIN SODIUM 40 MG TAB PO SCH (21:57)
[2024-08-18] MEDS: METOPROLOL TARTRATE 25 MG TAB PO SCH (21:57)
[2024-08-19] MEDS ORDERED: DEXTROSE 50% SYRINGE 50 ML IVP PRN ×2 (02:17)
[2024-08-19 06:36] LABS: Glucose,Whole Blood 156 mg/dL (70-110)
[2024-08-19] MEDS: glipiZIDE 5 MG TAB PO SCH (06:37)
[2024-08-19] MEDS: INSULIN LISPRO (HumaLOG) 100 UNIT/ML 10 mL VL SQ SCH (06:42)
[2024-08-19] MEDS: ASPIRIN 325 MG TAB PO SCH (08:28)
[2024-08-19] MEDS: amLODIPine 5 MG TAB PO SCH (08:28)
[2024-08-19] MEDS: SODIUM BICARBONATE TAB 650 MG TAB PO SCH (08:28)
[2024-08-19] MEDS: POTASSIUM CHLORIDE ER 10 MEQ TAB.ER.PRT PO SCH (08:28)
[2024-08-19] MEDS ORDERED: AZELASTINE 137MCG/SPRAY EA NOSTRIL PRN (08:52)
[2024-08-19] MEDS ORDERED: NITROGLYCERIN SL TABS 0.4 MG TAB SUBLINGUAL PRN (08:52)
--- NOTE | 2024-08-19 11:24 | P.CRDCN ---
History of Present Illness History of present illness: HISTORY OF PRESENT ILLNESS: This is a 79-year-old male with a past medical history significant for atrial fibrillation, coronary artery disease with previous CABG, ischemic cardiomyopathy, severe mitral regurgitation, congestive heart failure, chronic kidney disease, hypertension, hyperlipidemia, and diabetes. Patient follows in the office with Dr. Cortés. We have been asked to see the patient in consultation for congestive heart failure. Patient examined at the bedside. Patient pre sented to the hospital for chief complaint of shortness of breath. Patient states he has been having worsening shortness of breath and increased lower extremity edema for the past 2 to 3 weeks. He also reports weeping of his lower extremities. He denies any chest pain or pressure. The patient was found to be in acute CHF and was started on IV Lasix. The patient was seen in the office recently in June 2024. Dr. Cortés did discuss options including cardiac catheterization given his LV function and possible mitral clipping however patient declined and did not want to undergo any procedures. DIAGNOSTICS: - EKG reveals A-fib with controlled ventricular rate - Chest xray moderate cardiomegaly with CHF and pulmonary vascular congestion. Small bilateral pleural effusions. - Laboratory data: WBC 6.46. Hemoglobin 10.4. Platelet count 156. Sodium 140. Potassium 3.7. BUN 58. Creatinine 2.75. Troponin 0.042. 0.039. 0.045. proBNP 82,800. - Current home cardiac medications include Pravachol 40 mg at night, amlodipine 5 mg daily, Demadex 20 mg twice a day, metoprolol tartrate 25 mg twice daily, Eliquis 2.5 mg twice daily. - Most recent echocardiogram obtained in June 2024 revealed ejection fraction 15 to 20%, mild pulmonary hypertension, moderate to severe mitral regurgitation, moderate aortic regurgitation, mild tricuspid regurgitation - Cardiac catheterization history: Unknown REVIEW OF SYSTEMS: At the time of my exam: CONSTITUTIONAL: Denies fever or chills. HEENT: Denies blurred vision, vision changes, or eye pain. Denies hemoptysis CARDIOVASCULAR: Denies chest pain. Denies orthopnea. Denies PND. Denies palpitations RESPIRATORY: Denies shortness of breath. GASTROINTESTINAL: Denies abdominal pain. Denies nausea or vomiting. HEMATOLOGIC: Denies bleeding disorders. GENITOURINARY: Denies any blood in urine. SKIN: Denies pruitis. Denies rash. PHYSICAL EXAM: VITAL SIGNS: Reviewed. GENERAL: Well-developed in no acute distress. HEENT: Head is normocephalic. Pupils are equal, round. Sclerae anicteric. Mucous membranes of the mouth are moist. Neck supple. No JVD or thyromegaly LUNGS: Respirations even and unlabored. Lungs essentially clear to auscultation bilaterally. HEART: Irregular rate and rhythm. S1 and S2 heard. ABDOMEN: Soft. Nondistended. Nontender. EXTREMITIES: Normal range of motion. No clubbing or cyanosis. Peripheral pulses intact. 3+ bilateral pitting lower extremity edema. Right lower extremity with erythema and evidence of cellulitis with weeping. NEUROLOGIC: Awake and alert. Oriented x 3. ASSESSMENT: Shortness of breath Acute on chronic heart failure with reduced EF, 15 to 20% Right lower extremity cellulitis Coronary artery disease with previous CABG Ischemic cardiomyopathy Moderate to severe mitral regurgitation Persistent atrial fibrillation with controlled ventricular rate, Eliquis outpatient Chronic kidney disease History of hypertension History of hyperlipidemia History of diabetes PLAN: No need to repeat echocardiogram as this was performed in June 2024 Decrease IV Lasix to 40 mg every 12 hours Daily weights, accurate intake and output, monitoring of kidney function Discontinue amlodipine as this may be contributing to his lower extremity edema Discontinue metoprolol tartrate. Begin carvedilol 6.25 mg twice daily Further recommendations pending patient course Nurse practitioner note has been reviewed by physician. Signing provider agrees with the documented findings, assessment, and plan of care documented by [employer] as a scribe. Past Medical History Past Medical History: Atrial Fibrillation, Coronary Artery Disease (CAD), Heart Failure, Diabetes Mellitus, Dialysis, Hypertension, Prostate Disorder, Renal Disease Additional Past Medical History / Comment(s): Dialysis Mon, Wed, Fri History of Any Multi-Drug Resistant Organisms: None Reported Past Surgical History: Cholecystectomy, Coronary Bypass/CABG Additional Past Surgical History / Comment(s): ACL ligament replacement, CABG 3 vessel Past Anesthesia/Blood Transfusion Reactions: No Reported Reaction Past Psychological History: Anxiety Smoking Status: Never smoker Past Alcohol Use History: None Reported Past Drug Use History: None Reported - Past Family History Father Family Medical History: Cancer Additional Family Medical History / Comment(s): pancreatic Medications and Allergies Home Medications Medication Instructions Recorded Confirmed Type Nitroglycerin Sl Tabs [Nitrostat] 0.4 mg SL Q5M PRN 02/11/22 08/18/24 History Pravastatin Sodium [Pravachol] 40 mg PO HS 02/11/22 08/18/24 History Tamsulosin HCl [Flomax] 0.4 mg PO BID 02/11/22 08/18/24 History Budesonide/Formoterol Fumarate 1 puff INHALATION RT-QID 06/05/22 08/18/24 History [Symbicort 160-4.5 Mcg Inhaler] glyBURIDE [Diabeta] 2.5 mg PO Q3D 11/02/22 08/18/24 History Apixaban [Eliquis] 2.5 mg PO BID 06/21/24 08/18/24 History Azelastine HCl [Astelin Nasal 1 spray EA NOSTRIL DAILY PRN 06/21/24 08/18/24 History [place]] Mv-Min/Folic/K1/Lycopen/Lutein 1 tab PO DAILY 06/21/24 08/18/24 History [Centrum Silver Men Tablet] Sodium Bicarbonate Tab 650 mg PO DAILY 06/21/24 08/18/24 History Acetaminophen [Tylenol 8 Hour] 1,300 mg PO Q6H PRN 08/18/24 08/18/24 History Metoprolol Tartrate [Lopressor] 25 mg PO BID 08/18/24 08/18/24 History Potassium Chloride ER [K-Dur 10] 10 meq PO DAILY 08/18/24 08/18/24 History Torsemide [Demadex] 20 mg PO BID 08/18/24 08/18/24 History amLODIPine [Norvasc] 5 mg PO DAILY 08/18/24 08/18/24 History Allergies Allergy/AdvReac Type Severity Reaction Status Date / Time duloxetine [From Cymbalta] Allergy Rash/Hives Verified 08/18/24 16:16 enalaprilat [From Vasotec] Allergy Unknown Verified 08/18/24 16:16 levofloxacin [From Levaquin] Allergy Rash/Hives Verified 08/18/24 16:16 saxagliptin [From Onglyza] Allergy Rash/Hives Verified 08/18/24 16:16 sulfamethoxazole Allergy Rash/Hives Verified 08/18/24 16:16 [From Bactrim] trimethoprim [From Bactrim] Allergy Rash/Hives Verified 08/18/24 16:16 Physical Exam Vitals: Vital Signs Temp Pulse Pulse Resp BP BP Pulse Ox 08/19/24 08:00 97.6 F 63 16 108/63 93 L 08/19/24 03:26 97.7 F 60 16 117/67 94 L 08/18/24 23:24 97.8 F 63 18 114/62 96 08/18/24 20:00 97.7 F 65 18 114/62 94 L 08/18/24 19:41 66 22 131/76 94 L 08/18/24 18:02 73 24 130/75 95 08/18/24 14:34 69 24 124/72 97 08/18/24 13:40 98 F 70 24 120/69 99 Intake and Output 08/18/24 08/19/24 08/19/24 22:59 06:59 14:59 Intake Total 400 680 Output Total 200 Balance 400 480 Intake: Oral 400 680 Output: Urine 200 Other: Voiding Method Toilet Toilet Toilet Weight 70.307 kg 75.6 kg Results 08/18/24 14:10 08/18/24 14:10 Cardiac Enzymes 08/18/24 08/18/24 08/18/24 Range/Units 14:10 14:10 17:13 AST 22 (17-59) U/L Troponin I 0.042 H* 0.039 H* (0.000-0.034) ng/mL 08/18/24 Range/Units 20:13 AST (17-59) U/L Troponin I 0.045 H* (0.000-0.034) ng/mL Coagulation 08/18/24 Range/Units 14:10 PT 13.8 H (10.0-12.5) sec APTT 31.1 H (22.0-30.0) sec CBC 08/18/24 Range/Units 14:10 WBC 6.46 (4.50-10.00) 10*3/uL RBC 3.30 L (4.40-5.60) 10*6/uL Hgb 10.4 L (13.0-17.0) g/dL Hct 32.8 L (39.6-50.0) % Plt Count 156 (140-440) 10*3/uL Comprehensive Metabolic Panel 08/18/24 Range/Units 14:10 Sodium 140 (137-145) mmol/L Potassium 3.7 (3.5-5.1) mmol/L Chloride 108 H (98-107) mmol/L Carbon Dioxide 19 L (22-30) mmol/L BUN 58 H (9-20) mg/dL Creatinine 2.75 H (0.66-1.25) mg/dL Glucose 177 H (74-99) mg/dL Calcium 9.1 (8.4-10.2) mg/dL AST 22 (17-59) U/L ALT 24 (4-49) U/L Alkaline Phosphatase 94 (38-126) U/L Total Protein 6.3 (6.3-8.2) g/dL Albumin 3.7 (3.5-5.0) g/dL Current Medications Generic Name Dose Route Start Last Admin Trade Name Freq PRN Reason Stop Dose Admin Acetaminophen 650 mg 08/18/24 20:53 Acetaminophen Tab 325 Mg Tab PO Q6HR PRN Fever and/ or Pain Apixaban 2.5 mg 08/18/24 21:00 08/19/24 08:28 Apixaban 2.5 Mg Tablet PO 2.5 mg BID [facility] Administration Protocol Aspirin 81 mg 08/19/24 09:00 Aspirin 81 Mg PO DAILY [facility] Azelastine HCl 1 spray 08/19/24 08:52 Azelastine 137mcg/[place] EA NOSTRIL DAILY PRN Allergy Symptoms Budesonide/Formoterol Fumarate 1 puff 08/19/24 12:00 Symbicort 160-4.5 Mcg Inhaler INHALATION RT-QID [facility] Carvedilol 6.25 mg 08/19/24 17:30 Carvedilol 6.25 Mg Tab PO BID-W/MEALS [facility] Cephalexin 500 mg 08/19/24 21:00 Cephalexin 500 Mg Cap PO BID JUMA Protocol Dextrose/Water 25 ml 08/19/24 02:17 Dextrose 50% Syringe 50 Ml IVP PER PROTOCOL PRN Hypoglycemia Protocol Dextrose/Water 50 ml 08/19/24 02:17 Dextrose 50% Syringe 50 Ml IVP PER PROTOCOL PRN Hypoglycemia Protocol Furosemide 40 mg 08/19/24 21:00 Furosemide 10 Mg/Ml 4 Ml Vial IV Q12HR [facility] Glipizide 5 mg 08/19/24 07:30 08/19/24 06:37 Glipizide 5 Mg Tab PO 5 mg Q72H [facility] Administration Insulin Human Lispro 0 unit 08/19/24 07:30 08/19/24 06:42 Insulin Lispro (Humalog) 100 Unit/Ml 10 Ml Vl SQ Not Given ACHS [facility] Protocol Nitroglycerin 0.4 mg 08/19/24 08:52 Nitroglycerin Sl Tabs 0.4 Mg Tab SUBLINGUAL Q5M PRN Chest Pain Potassium Chloride 10 meq 08/19/24 09:00 08/19/24 08:28 Potassium Chloride Er 10 Meq Tab.Er.Prt PO 10 meq DAILY JUMA Administration Pravastatin Sodium 40 mg 08/18/24 21:00 08/18/24 21:57 Pravastatin Sodium 40 Mg Tab PO 40 mg HS [facility] Administration Sodium Bicarbonate 650 mg 08/19/24 09:00 08/19/24 08:28 Sodium Bicarbonate Tab 650 Mg Tab PO 650 mg DAILY [facility] Administration Spironolactone 25 mg 08/19/24 09:00 Spironolactone 25 Mg Tab PO DAILY [facility] Tamsulosin HCl 0.4 mg 08/18/24 21:00 08/19/24 08:28 Tamsulosin 0.4 Mg Cap.Er.24h PO 0.4 mg BID [facility] Administration Intake and Output 08/18/24 08/19/24 08/19/24 22:59 06:59 14:59 Intake Total 400 680 Output Total 200 Balance 400 480 Intake: Oral 400 680 Output: Urine 200 Other: Voiding Method Toilet Toilet Toilet Weight 70.307 kg 75.6 kg 08/18/24 14:10 08/18/24 14:10
[2024-08-19 11:39] LABS: Glucose,Whole Blood 144 mg/dL (70-110)
[2024-08-19] MEDS: ASPIRIN 81 MG PO SCH (12:31)
[2024-08-19] MEDS: SPIRONOLACTONE 25 MG TAB PO SCH (12:31)
[2024-08-19] MEDS: SYMBICORT 160-4.5 MCG INHALER INHALATION SCH (13:05)
--- NOTE | 2024-08-19 14:30 | P.HPIM ---
History of Present Illness H&P Date: 08/19/24 Patient is a 79-year-old male with history of atrial fibrillation on Eliquis, CAD status post CABG, CHF, ischemic cardiomyopathy with ejection fraction of 15 to 20%, type 2 diabetes, hypertension, CKD stage IV came to the ER via EMS with concerns for bilateral lower extremity edema and exertional dyspnea getting progressively worse from couple weeks. Patient was recently hospitalized and was treated for acute on chronic congestive heart failure exacerbation and KATIE. Patient reports that he continued to experience worsening bilateral leg edema and exertional dyspnea after he was discharged and he finally decided to come to the hospital for further evaluation. Patient reports cough which is mildly productive, orthopnea, PND. He also noticed redness and erythema with some pain in his right lower extremity since 2 weeks. Patient reports that his urine output has mildly decreased. He denies any chest pain but reports fatigue and dizziness. He reports no fall episodes. Laboratory evaluation in the ER shows WBC 6.46, hemoglobin 10.4, hematocrit 32.8, MCV 99.4, platelet count 156, PT 13.8, INR 1.3, APTT 31.1, sodium 140, potassium 2.7, chloride 108, bicarb 19, BUN 58, creatinine 2.75, EGFR 21, glucose 177, troponin high 0.045, 0.039, 0.02, NT proBNP [id number]. Chest x-ray shows bilateral pleural effusions with pulmonary vascular congestion. EKG shows atrial fibrillation with ventricular rate of 65 bpm, QRS duration 102, QTc [address]-T wave changes noted. Vital signs on arrival shows temperature of 98.0 F, pulse rate of 70, respiratory rate 24, blood pressure 120/69, oxygen saturation 99% on 2 L via nasal cannula. Review of systems: Pertinent positives and negatives as discussed in HPI, a complete review of systems was performed and all other systems are negative. Physical examination: Vital signs reviewed General: non toxic, no distress, appears at stated age, overweight Derm: Poorly demarcated, nonraised, warm, erythematous skin lesions on the mares area of the left lower extremity Head: atraumatic, normocephalic, symmetric Eyes: EOMI, no lid lag, anicteric sclera, pupils equal round reactive to light ENT: Nose and ears atraumatic Neck: No cervical lymphadenopathy, trachea midline, supple Mouth: no lip lesion, mucus membranes moist Cardiovascular: S1S2 reg, no murmur, positive dorsalis pedis pulse bilateral, 3+ bilateral pitting edema Lungs: Bilateral crackles noted with decreased breath sounds. No accessory muscle use. Patient on 2 L via nasal cannula Abdominal: soft, nontender to palpation, no guarding Ext: muscle strength 5 out of 5 in all 4 extremities grossly, no gross muscle atrophy, no contractures, Neuro: CN II-XI grossly intact, no gross focal neuro deficits Psych: Alert, oriented, appropriate affect Assessment/Plan: This is a 79-year-old male with history of atrial fibrillation on Eliquis, CAD status post CABG, CHF, ischemic cardiomyopathy with ejection fraction of 15 to 20%, type 2 diabetes, hypertension, CKD stage IV came to the ER via EMS with concerns for bilateral lower extremity edema and exertional dyspnea getting progressively worse from couple weeks. Case was discussed with the Emergency Room provider and decision was made to admit the patient for CHF exacerbation. Labs and images: Laboratory evaluation in the ER shows WBC 6.46, hemoglobin 10.4, hematocrit 32.8, MCV 99.4, platelet count 156, PT 13.8, INR 1.3, APTT 31.1, sodium 140, potassium 2.7, chloride 108, bicarb 19, BUN 58, creatinine 2.75, EGFR 21, glucose 177, troponin high 0.045, 0.039, 0.02, NT proBNP [id number]. Chest x-ray shows bilateral pleural effusions with pulmonary vascular congestion. EKG shows atrial fibrillation with ventricular rate of 65 bpm, QRS duration 102, QTc [address]-T wave changes noted. Vital signs on arrival shows temperature of 98.0 F, pulse rate of 70, respiratory rate 24, blood pressure 120/69, oxygen saturation 99% on 2 L via nasal cannula. Active: # Acute on chronic systolic congestive heart failure exacerbation #Acute hypoxemic respiratory failure secondary to above #Cardiorenal syndrome, at baseline creatinine of 2.75 #Ischemic cardiomyopathy with ejection fraction of 15 to 20% #Elevated troponin I secondary to type II NSTEMI secondary to above Continue oxygen therapy as needed Continue with IV Lasix 40 mg every 12 hour Add Aldactone 25 mg p.o. daily Continue with statin, carvedilol, aspirin Strict I's and O's, daily weights, fluid restriction to 1.5 L/day Continue with sodium bicarbonate, potassium chloride Continue monitor CBC and BMP Avoid nephrotoxic drugs Troponin I trend is negative #Type 2 diabetes mellitus Resume glipizide 5 mg p.o. every 72 hours Add sliding scale insulin Continue monitor for hypoglycemia #Right lower extremity cellulitis Order Keflex 500 mg twice daily x 5 days Chronic medical conditions: Resume home medications DVT prophylaxis: Eliquis GI prophylaxis: None F: On fluid restriction E: Replete as needed N: Heart healthy diet with fluid restriction A: Ambulatory The patient is admitted with an anticipated more than than 2 midnight stay for evaluation of systolic CHF exacerbation CODE STATUS: Full code Discussed with: Patient Anticipated discharge place: Pending clinical course Dictation was produced using Mund[employer] dictation software. Please excuse any gra mmatical, word or spelling errors. Attestation I have seen and examined this patient with my resident , discussed the same with the resident/JAIME, and agree with the dictator's assessment and plan as written Dr. Juve saucedo Past Medical History Past Medical History: Atrial Fibrillation, Coronary Artery Disease (CAD), Heart Failure, Diabetes Mellitus, Dialysis, Hypertension, Prostate Disorder, Renal Disease Additional Past Medical History / Comment(s): Dialysis Mon, Wed, Wed History of Any Multi-Drug Resistant Organisms: None Reported Past Surgical History: Cholecystectomy, Coronary Bypass/CABG Additional Past Surgical History / Comment(s): ACL ligament replacement, CABG 3 vessel Past Anesthesia/Blood Transfusion Reactions: No Reported Reaction Past Psychological History: Anxiety Smoking Status: Never smoker Past Alcohol Use History: None Reported Past Drug Use History: None Reported - Past Family History Father Family Medical History: Cancer Additional Family Medical History / Comment(s): pancreatic Medications and Allergies Home Medications Medication Instructions Recorded Confirmed Type Nitroglycerin Sl Tabs [Nitrostat] 0.4 mg SL Q5M PRN 02/11/22 08/18/24 History Pravastatin Sodium [Pravachol] 40 mg PO HS 02/11/22 08/18/24 History Tamsulosin HCl [Flomax] 0.4 mg PO BID 02/11/22 08/18/24 History Budesonide/Formoterol Fumarate 1 puff INHALATION RT-QID 06/05/22 08/18/24 History [Symbicort 160-4.5 Mcg Inhaler] glyBURIDE [Diabeta] 2.5 mg PO Q3D 11/02/22 08/18/24 History Apixaban [Eliquis] 2.5 mg PO BID 06/21/24 08/18/24 History Azelastine HCl [Astelin Nasal 1 spray EA NOSTRIL DAILY PRN 06/21/24 08/18/24 History [place]] Mv-Min/Folic/K1/Lycopen/Lutein 1 tab PO DAILY 06/21/24 08/18/24 History [Centrum Silver Men Tablet] Sodium Bicarbonate Tab 650 mg PO DAILY 06/21/24 08/18/24 History Acetaminophen [Tylenol 8 Hour] 1,300 mg PO Q6H PRN 08/18/24 08/18/24 History Metoprolol Tartrate [Lopressor] 25 mg PO BID 08/18/24 08/18/24 History Potassium Chloride ER [K-Dur 10] 10 meq PO DAILY 08/18/24 08/18/24 History Torsemide [Demadex] 20 mg PO BID 08/18/24 08/18/24 History amLODIPine [Norvasc] 5 mg PO DAILY 08/18/24 08/18/24 History Allergies Allergy/AdvReac Type Severity Reaction Status Date / Time duloxetine [From Cymbalta] Allergy Rash/Hives Verified 08/18/24 16:16 enalaprilat [From Vasotec] Allergy Unknown Verified 08/18/24 16:16 levofloxacin [From Levaquin] Allergy Rash/Hives Verified 08/18/24 16:16 saxagliptin [From Onglyza] Allergy Rash/Hives Verified 08/18/24 16:16 sulfamethoxazole Allergy Rash/Hives Verified 08/18/24 16:16 [From Bactrim] trimethoprim [From Bactrim] Allergy Rash/Hives Verified 08/18/24 16:16 Physical Exam Vitals: Vital Signs Temp Pulse Pulse Resp BP BP Pulse Ox 08/19/24 08:00 97.6 F 63 16 108/63 93 L 08/19/24 03:26 97.7 F 60 16 117/67 94 L 08/18/24 23:24 97.8 F 63 18 114/62 96 08/18/24 20:00 97.7 F 65 18 114/62 94 L 08/18/24 19:41 66 22 131/76 94 L 08/18/24 18:02 73 24 130/75 95 08/18/24 14:34 69 24 124/72 97 08/18/24 13:40 98 F 70 24 120/69 99 Intake and Output 08/18/24 08/19/24 08/19/24 22:59 06:59 14:59 Intake Total 400 200 Output Total 200 Balance 400 0 Intake: Oral 400 200 Output: Urine 200 Other: Voiding Method Toilet Toilet Weight 70.307 kg 75.6 kg Results CBC & Chem 7: 08/20/24 08:10 08/20/24 08:10 Labs: Abnormal Lab Results - Last 24 Hours (Table) 08/18/24 08/18/24 08/18/24 Range/Units 14:10 14:10 14:10 RBC 3.30 L (4.40-5.60) 10*6/uL Hgb 10.4 L (13.0-17.0) g/dL Hct 32.8 L (39.6-50.0) % MCV 99.4 H (80.0-97.0) fL MCHC 31.7 L (32.0-37.0) g/dL Eosinophils # 0.02 L (0.04-0.35) 10*3/uL PT 13.8 H (10.0-12.5) sec INR 1.3 H (<1.2) APTT 31.1 H (22.0-30.0) sec Chloride 108 H (98-107) mmol/L Carbon Dioxide 19 L (22-30) mmol/L BUN 58 H (9-20) mg/dL Creatinine 2.75 H (0.66-1.25) mg/dL Glucose 177 H (74-99) mg/dL POC Glucose (mg/dL) (70-110) mg/dL Plasma Lactic Acid [place]yer (0.7-2.0) mmol/L Troponin I (0.000-0.034) ng/mL 08/18/24 08/18/24 08/18/24 Range/Units 14:10 14:10 17:13 RBC (4.40-5.60) 10*6/uL Hgb (13.0-17.0) g/dL Hct (39.6-50.0) % MCV (80.0-97.0) fL MCHC (32.0-37.0) g/dL Eosinophils # (0.04-0.35) 10*3/uL PT (10.0-12.5) sec INR (<1.2) APTT (22.0-30.0) sec Chloride (98-107) mmol/L Carbon Dioxide (22-30) mmol/L BUN (9-20) mg/dL Creatinine (0.66-1.25) mg/dL Glucose (74-99) mg/dL POC Glucose (mg/dL) (70-110) mg/dL Plasma Lactic Acid Sawyer 2.4 H* (0.7-2.0) mmol/L Troponin I 0.042 H* 0.039 H* (0.000-0.034) ng/mL 08/18/24 08/18/24 08/19/24 Range/Units 20:13 20:46 06:35 RBC (4.40-5.60) 10*6/uL Hgb (13.0-17.0) g/dL Hct (39.6-50.0) % MCV (80.0-97.0) fL MCHC (32.0-37.0) g/dL Eosinophils # (0.04-0.35) 10*3/uL PT (10.0-12.5) sec INR (<1.2) APTT (22.0-30.0) sec Chloride (98-107) mmol/L Carbon Dioxide (22-30) mmol/L BUN (9-20) mg/dL Creatinine (0.66-1.25) mg/dL Glucose (74-99) mg/dL POC Glucose (mg/dL) 145 H 156 H (70-110) mg/dL Plasma Lactic Acid Sawyer (0.7-2.0) mmol/L Troponin I 0.045 H* (0.000-0.034) ng/mL
[2024-08-19] MEDS: carvediloL 6.25 MG TAB PO SCH (16:28)
[2024-08-19 16:34] LABS: Glucose,Whole Blood 109 mg/dL (70-110)
[2024-08-19 20:05] LABS: Glucose,Whole Blood 150 mg/dL (70-110)
[2024-08-19] MEDS: FUROSEMIDE 10 MG/ML 4 ML VIAL IV SCH (21:03)
[2024-08-19] MEDS: CEPHALEXIN 500 MG CAP PO SCH (21:03)
[2024-08-20] MEDS: MELATONIN 5 MG TABLET PO SCH (00:42)
[2024-08-20] MEDS: IPRATROPIUM-ALBUTEROL 3 ML NEB INHALATION SCH (00:56)
[2024-08-20] MEDS: CEPHALEXIN 500 MG CAP PO SCH (01:53)
[2024-08-20 06:42] LABS: Glucose,Whole Blood 150 mg/dL (70-110)
[2024-08-20 08:36] LABS: Basophils # (A) 0.03 10*3/uL (0.00-0.10); Basophils % (A) 0.5 %; Eosinophils % (A) 1.8 %; HCT 32.7 % (39.6-50.0); HGB 10.2 g/dL (13.0-17.0); Lymphocytes # (A) 1.08 10*3/uL (0.90-5.00); Lymphocytes % (A) 19.4 %; MCH 31.3 pg (27.0-32.0); MCHC 31.2 g/dL (32.0-37.0); MCV 100.3 fL (80.0-97.0); Mean Platelet Volume 11.1 fL (9.5-12.2); Monocytes # (A) 0.39 10*3/uL (0.20-1.00); Neutrophils # (A) 3.97 10*3/uL (1.80-7.70); Neutrophils % (A) 71.1 %; Platelet Count 120 10*3/uL (140-440); RBC 3.26 10*6/uL (4.40-5.60); RDW 18.7 % (11.5-14.5); WBC 5.58 10*3/uL (4.50-10.00)
[2024-08-20 08:55] LABS: African American GFR (CKD) 24 (>60 ml/min/1.73 sqM); Anion Gap 10 mmol/L; Blood Urea Nitrogen 63 mg/dL (9-20); Calcium 8.8 mg/dL (8.4-10.2); Carbon Dioxide 20 mmol/L (22-30); Chloride 110 mmol/L (98-107); Glucose 149 mg/dL (74-99); Non-African American GFR(CKD) 21 (>60 ml/min/1.73 sqM); Potassium 3.7 mmol/L (3.5-5.1); Sodium 140 mmol/L (137-145)
--- NOTE | 2024-08-20 09:53 | P.PN ---
Subjective Progress Note Date: 08/20/24 This is [employer] NP, I'm dictating on behalf of Dr. Arthur's H&P and A&P. Patient was interviewed and examined. Patient is a pleasant 79-year-old male who presented to the hospital with co ngestive heart failure. Patient today reports that he is breathing okay. He is still waiting for the swelling to go down his legs, and reports it is about the same as it was yesterday. Patient does report that he is urinating on the Lasix. He denies any chest pain or shortness of breath. GENERAL: Well-appearing, well-nourished and in no acute distress. NECK: Supple without JVD or thyromegaly. LUNGS: Breath sounds clear to auscultation bilaterally. Respiration equal and unlabored. No wheezes, rales or rhonchi. HEART: Regular rate and rhythm without murmurs, rubs or gallops. S1 and S2 h eard. EXTREMITIES: Normal range of motion, 2+ pitting edema bilateral lower extremities. No clubbing or cyanosis. Peripheral pulses intact and strong. VITALS: Temp 97.4, pulse 71, respirations 16, blood pressure 130/72, O2 saturation 94% on 2 L TELEMETRY: A-fib with controlled ventricular response LABS: White count 5.5, hemoglobin 10.2, platelets 120, sodium 140, potassium 3.7, chloride 110, BUN 63, creatinine 2.74, calcium 8.8 IMPRESSION: 1. Shortness of breath 2. Acute on chronic heart failure with reduced EF, 15 to 20% 3. Right lower extremity cellulitis 4. Coronary artery disease with previous CABG 5. Ischemic cardiomyopathy 6. Moderate to severe mitral regurgitation 7. Persistent atrial fibrillation with controlled ventricular rate, [facility] outpatient 8. Chronic kidney disease 9. History of hypertension 10. History of hyperlipidemia 11. History of diabetes PLAN: Discontinue IV Lasix, start 40 mg p.o. twice daily. Continue daily weights, intake and output charting. Continue other medications as prescribed. Further recommendations based on patient's clinical course. Objective - Vital Signs Vital signs: Vital Signs Temp 97.4 F L 08/20/24 03:05 Pulse 62 08/20/24 08:00 Resp 16 08/20/24 08:00 BP 106/56 08/20/24 08:00 Pulse Ox 91 L 08/20/24 08:00 FiO2 Intake & Output 08/19/24 08/20/24 08/20/24 18:59 06:59 18:59 Intake Total 1160 240 Output Total 200 525 Balance 960 -525 240 Intake: Oral 1160 240 Output: Urine 200 525 Other: Voiding Method Toilet Toilet # Voids 1 - Labs CBC & Chem 7: 08/20/24 08:10 08/20/24 08:10 Labs: Abnormal Lab Results - Last 24 Hours (Table) 08/19/24 08/19/24 08/20/24 Range/Units 11:37 20:04 06:41 RBC (4.40-5.60) 10*6/uL Hgb (13.0-17.0) g/dL Hct (39.6-50.0) % MCV (80.0-97.0) fL MCHC (32.0-37.0) g/dL Plt Count (140-440) 10*3/uL Chloride (98-107) mmol/L Carbon Dioxide (22-30) mmol/L BUN (9-20) mg/dL Creatinine (0.66-1.25) mg/dL Glucose (74-99) mg/dL POC Glucose (mg/dL) 144 H 150 H 150 H (70-110) mg/dL 08/20/24 08/20/24 Range/Units 08:10 08:10 RBC 3.26 L (4.40-5.60) 10*6/uL Hgb 10.2 L (13.0-17.0) g/dL Hct 32.7 L (39.6-50.0) % MCV 100.3 H (80.0-97.0) fL MCHC 31.2 L (32.0-37.0) g/dL Plt Count 120 L (140-440) 10*3/uL Chloride 110 H (98-107) mmol/L Carbon Dioxide 20 L (22-30) mmol/L BUN 63 H (9-20) mg/dL Creatinine 2.74 H (0.66-1.25) mg/dL Glucose 149 H (74-99) mg/dL POC Glucose (mg/dL) (70-110) mg/dL
[2024-08-20 11:43] LABS: Glucose,Whole Blood 132 mg/dL (70-110)
[2024-08-20 12:52] VITALS: BMI 26.9
--- NOTE | 2024-08-20 13:46 | P.PN ---
Subjective Progress Note Date: 08/20/24 79-year-old male with history of atrial fibrillation on Eliquis, CAD status post CABG, CHF, ischemic cardiomyopathy with ejection fraction of 15 to 20%, type 2 diabetes, hypertension, CKD stage IV came to the ER via EMS with concerns for bilateral lower extremity edema and exertional dyspnea getting progressively worse from couple weeks. Patient was recently hospitalized and was treated for acute on chronic congestive heart failure exacerbation and KATIE. Patient reports that he continued to experience worsening bilateral leg edema and exertional dyspnea after he was discharged and he finally decided to come to the hospital for further evaluation. Patient reports cough which is mildly productive, orthopnea, PND. He also noticed redness and erythema with some pain in his right lower extremity since 2 weeks. Patient reports that his urine output has mildly decreased. He denies any chest pain but reports fatigue and dizziness. He reports no fall episodes. Laboratory evaluation in the ER shows WBC 6.46, hemoglobin 10.4, hematocrit 32.8, MCV 99.4, platelet count 156, PT 13.8, INR 1.3, APTT 31.1, sodium 140, potassium 2.7, chloride 108, bicarb 19, BUN 58, creatinine 2.75, EGFR 21, glucose 177, troponin high 0.045, 0.039, 0.02, NT proBNP [id number]. Chest x-ray shows bilateral pleural effusions with pulmonary vascular congestion. EKG shows atrial fibrillation with ventricular rate of 65 bpm, QRS duration 102, QTc [address]-T wave changes noted. Vital signs on arrival shows temperature of 98.0 F, pulse rate of 70, respiratory rate 24, blood pressure 120/69, oxygen saturation 99% on 2 L via nasal cannula. 08/20. Patient seen and examined. Labs reviewed showed WBC 5.58, hemoglobin 0.2, platelet count 120, sodium 140, potassium 3.7, BUN 63, creatinine 2.74. Still has swelling of lower extremities REVIEW OF SYSTEMS: CONSTITUTIONAL: No fever, no malaise,. CARDIOVASCULAR: No chest pain, no palpitations, no syncope. PULMONARY: No shortness of breath, no cough, GASTROINTESTINAL: No diarrhea, no nausea, no vomiting, no abdominal pain. NEUROLOGICAL: No headaches, no weakness, PHYSICAL EXAMINATION: GENERAL: The patient is alert and oriented x3, ill looking HEENT: Pupils are round and equally reacting to light. EOMI. No scleral icterus. No conjunctival pallor. Normocephalic, atraumatic. No pharyngeal erythema. No thyromegaly. CARDIOVASCULAR: S1 and S2 present. No murmurs, rubs, or gallops. PULMONARY: Chest is clear to auscultation, no wheezing or crackles. ABDOMEN: Soft, nontender, nondistended, normoactive bowel sounds. No palpable organomegaly. MUSCULOSKELETAL: No joint swelling or deformity. EXTREMITIES: No cyanosis, clubbing 3+ pitting edema lower extremities, right lower extremity erythema seen NEUROLOGICAL: Gross neurological examination did not reveal any focal deficits. SKIN: No rashes. Assessment and plan # Acute on chronic systolic congestive heart failure exacerbation #Acute hypoxemic respiratory failure secondary to above #Cardiorenal syndrome, at baseline creatinine of 2.75 #Ischemic cardiomyopathy with ejection fraction of 15 to 20% #Elevated troponin I secondary to type II NSTEMI secondary to above Continue oxygen therapy as needed Strict I's and O's, daily weights Continue Lasix switch from IV to oral Continue Aldactone 25 mg p.o. daily Continue with statin, carvedilol, aspirin Cardiology following #Type 2 diabetes mellitus DC glipizide continue sliding scale insulin Continue monitor for hypoglycemia #Right lower extremity cellulitis Wound care start IV cefazolin Consult ID Labs and medication were reviewed.. Continue same treatment. Continue with symptomatic treatment. Resume home medication. Monitor labs and vitals. DVT and GI prophylaxis. Further recommendations as per clinical course of the patient Dictation was produced using [employer] dictation software. please excuse any grammatical, word or spelling errors. Objective - Vital Signs Vital signs: Vital Signs Temp 97.4 F L 08/20/24 03:05 Pulse 62 08/20/24 08:00 Resp 16 08/20/24 08:00 BP 106/56 08/20/24 08:00 Pulse Ox 91 L 08/20/24 08:00 FiO2 Intake & Output 08/19/24 08/20/24 08/20/24 18:59 06:59 18:59 Intake Total 1160 240 Output Total 200 525 Balance 960 -525 240 Intake: Oral 1160 240 Output: Urine 200 525 Other: Voiding Method Toilet Toilet # Voids 1 - Labs CBC & Chem 7: 08/20/24 08:10 08/20/24 08:10 Labs: Abnormal Lab Results - Last 24 Hours (Table) 08/19/24 08/19/24 08/20/24 Range/Units 11:37 20:04 06:41 RBC (4.40-5.60) 10*6/uL Hgb (13.0-17.0) g/dL Hct (39.6-50.0) % MCV (80.0-97.0) fL MCHC (32.0-37.0) g/dL Plt Count (140-440) 10*3/uL Chloride (98-107) mmol/L Carbon Dioxide (22-30) mmol/L BUN (9-20) mg/dL Creatinine (0.66-1.25) mg/dL Glucose (74-99) mg/dL POC Glucose (mg/dL) 144 H 150 H 150 H (70-110) mg/dL 08/20/24 08/20/24 Range/Units 08:10 08:10 RBC 3.26 L (4.40-5.60) 10*6/uL Hgb 10.2 L (13.0-17.0) g/dL Hct 32.7 L (39.6-50.0) % MCV 100.3 H (80.0-97.0) fL MCHC 31.2 L (32.0-37.0) g/dL Plt Count 120 L (140-440) 10*3/uL Chloride 110 H (98-107) mmol/L Carbon Dioxide 20 L (22-30) mmol/L BUN 63 H (9-20) mg/dL Creatinine 2.74 H (0.66-1.25) mg/dL Glucose 149 H (74-99) mg/dL POC Glucose (mg/dL) (70-110) mg/dL
[2024-08-20 16:32] LABS: Glucose,Whole Blood 178 mg/dL (70-110)
[2024-08-20] MEDS: FUROSEMIDE 40 MG TAB PO SCH (16:41)
[2024-08-20] MEDS: IPRATROPIUM-ALBUTEROL 3 ML NEB INHALATION PRN (19:46)
[2024-08-20 20:23] LABS: Glucose,Whole Blood 111 mg/dL (70-110)
--- NOTE | 2024-08-20 22:21 | P.CONS ---
History of Present Illness - Reason for Consult Consult date: 08/20/24 Cellulitis Requesting physician: Jvue Coates - Chief Complaint Shortness of breath x few days - History of Present Illness Patient is a 79-year-old male past medical history significant for coronary artery disease heart failure with hypercapnia spondylitis hypertension prostate disorder atrial fibrillation presenting to the hospital for evaluation of increasing shortness of breath patient also complaining of increasing swelling to the bilateral lower extremity with redness to the right leg symptom has been getting worse for the last few days patient denies high-grade fever or chills and patient was afebrile on presentation to hospital patient complaining of pain to the right leg mostly dull aching mild to moderate intensity with associated redness and open wound or any drainage patient on presentation to the hospital was afebrile patient was not tachycardic or hypotensive he is currently on 2 L nasal cannula oxygen patient did have a white count of 6.46 BUN and creatinine has been elevated liver enzymes are normal patient was started on cefazolin infectious was consulted for lower extremity cellulitis patient did have a chest x-ray moderate cardiomegaly with CHF and pulmonary vascular congestion Review of Systems Positive point and negatives has been mentioned in the HPI, complete review of systems was performed and all other systems are negative Past Medical History Past Medical History: Atrial Fibrillation, Coronary Artery Disease (CAD), Heart Failure, Diabetes Mellitus, Dialysis, Hypertension, Prostate Disorder, Renal Disease Additional Past Medical History / Comment(s): Dialysis Mon, Wed, Wed History of Any Multi-Drug Resistant Organisms: None Reported Past Surgical History: Cholecystectomy, Coronary Bypass/CABG Additional Past Surgical History / Comment(s): 07 ACL ligament replacement, CABG 3 vessel Past Anesthesia/Blood Transfusion Reactions: No Reported Reaction Past Psychological History: Anxiety Smoking Status: Never smoker Past Alcohol Use History: None Reported Past Drug Use History: None Reported - Past Family History Father Family Medical History: Cancer Additional Family Medical History / Comment(s): pancreatic Medications and Allergies Home Medications Medication Instructions Recorded Confirmed Type Nitroglycerin Sl Tabs [Nitrostat] 0.4 mg SL Q5M PRN 02/11/22 08/18/24 History Pravastatin Sodium [Pravachol] 40 mg PO HS 02/11/22 08/18/24 History Tamsulosin HCl [Flomax] 0.4 mg PO BID 02/11/22 08/18/24 History Budesonide/Formoterol Fumarate 1 puff INHALATION RT-QID 06/05/22 08/18/24 History [Symbicort 160-4.5 Mcg Inhaler] glyBURIDE [Diabeta] 2.5 mg PO Q3D 11/02/22 08/18/24 History Apixaban [Eliquis] 2.5 mg PO BID 06/21/24 08/18/24 History Azelastine HCl [Astelin Nasal 1 spray EA NOSTRIL DAILY PRN 06/21/24 08/18/24 History Andale] Mv-Min/Folic/K1/Lycopen/Lutein 1 tab PO DAILY 06/21/24 08/18/24 History [Centrum Silver Men Tablet] Sodium Bicarbonate Tab 650 mg PO DAILY 06/21/24 08/18/24 History Acetaminophen [Tylenol 8 Hour] 1,300 mg PO Q6H PRN 08/18/24 08/18/24 History Torsemide [Demadex] 20 mg PO BID 08/18/24 08/18/24 History Allergies Allergy/AdvReac Type Severity Reaction Status Date / Time duloxetine [From Cymbalta] Allergy Rash/Hives Verified 08/18/24 16:16 enalaprilat [From Vasotec] Allergy Unknown Verified 08/18/24 16:16 levofloxacin [From Levaquin] Allergy Rash/Hives Verified 08/18/24 16:16 saxagliptin [From Onglyza] Allergy Rash/Hives Verified 08/18/24 16:16 sulfamethoxazole Allergy Rash/Hives Verified 08/18/24 16:16 [From Bactrim] trimethoprim [From Bactrim] Allergy Rash/Hives Verified 08/18/24 16:16 Physical Exam Vitals: Vital Signs Temp Pulse Pulse Resp BP Pulse Ox 08/20/24 11:44 66 16 120/68 97 08/20/24 08:00 62 16 106/56 91 L 08/20/24 03:05 97.4 F L 71 16 130/72 94 L 08/20/24 01:07 65 08/20/24 00:56 68 08/19/24 23:16 97.3 F L 68 18 134/74 98 08/19/24 20:52 97.4 F L 71 18 119/71 94 L 08/19/24 16:00 68 16 111/66 96 Intake and Output 08/19/24 08/20/24 08/20/24 22:59 06:59 14:59 Intake Total 240 240 Output Total 525 Balance 240 -525 240 Intake: Oral 240 240 Output: Urine 525 Other: Voiding Method Toilet Toilet Toilet # Voids 1 GENERAL DESCRIPTION: Elderly male lying in bed, no distress. No tachypnea or accessory muscle of respiration use. HEENT: Shows Pallor , no scleral icterus. Oral mucous membrane is dry. NECK: Trachea central, no thyromegaly. LUNGS: Unlabored breathing. Decreased breath sound at the base HEART: S1, S2, regular rate and rhythm. No loud murmur ABDOMEN: Soft, no tenderness , guarding or rigidity, no organomegaly EXTREMITIES: Negative bilateral extremity right leg with some erythema no open wound or drainage SKIN: No rash, no masses palpable. NEUROLOGICAL: The patient is awake, alert, oriented x3, mood and affect normal. Results CBC & Chem 7: 08/20/24 08:10 08/20/24 08:10 Labs: Abnormal Lab Results - Last 24 Hours (Table) 08/19/24 08/20/24 08/20/24 Range/Units 20:04 06:41 08:10 RBC (4.40-5.60) 10*6/uL Hgb (13.0-17.0) g/dL Hct (39.6-50.0) % MCV (80.0-97.0) fL MCHC (32.0-37.0) g/dL Plt Count (140-440) 10*3/uL Chloride 110 H (98-107) mmol/L Carbon Dioxide 20 L (22-30) mmol/L BUN 63 H (9-20) mg/dL Creatinine 2.74 H (0.66-1.25) mg/dL Glucose 149 H (74-99) mg/dL POC Glucose (mg/dL) 150 H 150 H (70-110) mg/dL 08/20/24 08/20/24 Range/Units 08:10 11:42 RBC 3.26 L (4.40-5.60) 10*6/uL Hgb 10.2 L (13.0-17.0) g/dL Hct 32.7 L (39.6-50.0) % MCV 100.3 H (80.0-97.0) fL MCHC 31.2 L (32.0-37.0) g/dL Plt Count 120 L (140-440) 10*3/uL Chloride (98-107) mmol/L Carbon Dioxide (22-30) mmol/L BUN (9-20) mg/dL Creatinine (0.66-1.25) mg/dL Glucose (74-99) mg/dL POC Glucose (mg/dL) 132 H (70-110) mg/dL Assessment and Plan (1) Cellulitis of right leg Current Visit: Yes Status: Acute Code(s): L03.115 - CELLULITIS OF RIGHT LOWER LIMB SNOMED Code(s): 11557381392722742 (2) Allergy to multiple antibiotics Current Visit: Yes Status: Acute Code(s): Z88.1 - ALLERGY STATUS TO OTHER ANTIBIOTIC AGENTS SNOMED Code(s): 253054149 Plan: 1patient presented to the hospital with shortness of breath likely fluid overload in this patient also have evidence of bilateral lower extremity swelling with more erythema to the right leg concerning for cellulitis likely from gram-positive skin regi in this patient with evidence of fluid overload and likely streptococcal disease 2-patient with multiple antibiotic ALLERGIES that would limit the number of antibiotic safe to use 3-we will treat with the cefazolin dose adjusted for the kidney function 4-Carroll wrap to the leg to keep the swelling down We will follow on clinical condition and cultures to further adjust medication if needed Thank you for this consultation we will follow the patient along with you Dictation was produced using [employer] dictation software. please excuse any grammatical, word or spelling errors. Time with Patient: Greater than 30
[2024-08-21 05:56] LABS: Glucose,Whole Blood 106 mg/dL (70-110)
[2024-08-21 07:45] LABS: African American GFR (CKD) 23 (>60 ml/min/1.73 sqM); Anion Gap 14 mmol/L; Blood Urea Nitrogen 69 mg/dL (9-20); Calcium 9.2 mg/dL (8.4-10.2); Carbon Dioxide 20 mmol/L (22-30); Chloride 107 mmol/L (98-107); Glucose 94 mg/dL (74-99); Non-African American GFR(CKD) 20 (>60 ml/min/1.73 sqM); Potassium 4.6 mmol/L (3.5-5.1); Sodium 141 mmol/L (137-145)
--- NOTE | 2024-08-21 08:26 | P.PN ---
Subjective Progress Note Date: 08/21/24 This is Tree Seals NP, I'm dictating on behalf of Dr. Arthur's H&P and A&P. Patient was interviewed and examined. Patient is a pleasant 79-year-old male who presented to the hospital with co ngestive heart failure. Patient reports that the swelling in his legs is improved somewhat today. His breathing is still okay today. He otherwise has no major complaints. GENERAL: Well-appearing, well-nourished and in no acute distress. NECK: Supple without JVD or thyromegaly. LUNGS: Breath sounds clear to auscultation bilaterally. Respiration equal and unlabored. No wheezes, rales or rhonchi. HEART: Regular rate and rhythm without murmurs, rubs or gallops. S1 and S2 heard. EXTREMITIES: Normal range of motion, 1-2+ edema in the bilateral lower extremities. No clubbing or cyanosis. Peripheral pulses intact and strong. VITALS: Temp 97.9, pulse 70, respirations 18, blood pressure 113/64, O2 saturation 93% on 2 L TELEMETRY: Atrial fibrillation with controlled rate LABS: Sodium 141, potassium 4.6, chloride 107, BUN 69, creatinine 2.81, calcium 9.2 IMPRESSION: 1. Shortness of breath 2. Acute on chronic heart failure with reduced EF, 15 to 20% 3. Right lower extremity cellulitis 4. Coronary artery disease with previous CABG 5. Ischemic cardiomyopathy 6. Moderate to severe mitral regurgitation 7. Persistent atrial fibrillation with controlled ventricular rate, [facility] outpatient 8. Chronic kidney disease 9. History of hypertension 10. History of hyperlipidemia 11. History of diabetes PLAN: Continue current medications as prescribed. Patient may be discharged from a cardiology standpoint. Thank you for allowing us to participate in the care of this patient. Objective - Vital Signs Vital signs: Vital Signs Temp 97.9 F 08/20/24 23:22 Pulse 70 08/21/24 08:22 Resp 18 08/21/24 03:30 BP 113/64 08/21/24 03:30 Pulse Ox 93 L 08/21/24 08:09 FiO2 Intake & Output 08/20/24 08/21/24 08/21/24 18:59 06:59 18:59 Intake Total 720 Output Total 400 Balance 720 -400 Weight 75.6 kg Intake: Oral 720 Output: Urine 400 Other: Voiding Method Toilet Toilet - Labs CBC & Chem 7: 08/20/24 08:10 08/21/24 05:39 Labs: Abnormal Lab Results - Last 24 Hours (Table) 08/20/24 08/20/24 08/20/24 Range/Units 08:10 08:10 08:10 RBC 3.26 L (4.40-5.60) 10*6/uL Hgb 10.2 L (13.0-17.0) g/dL Hct 32.7 L (39.6-50.0) % MCV 100.3 H (80.0-97.0) fL MCHC 31.2 L (32.0-37.0) g/dL Plt Count 120 L (140-440) 10*3/uL Chloride 110 H (98-107) mmol/L Carbon Dioxide 20 L (22-30) mmol/L BUN 63 H (9-20) mg/dL Creatinine 2.74 H (0.66-1.25) mg/dL Glucose 149 H (74-99) mg/dL POC Glucose (mg/dL) (70-110) mg/dL Hemoglobin A1c 6.7 H (<=6.0) % 08/20/24 08/20/24 08/20/24 Range/Units 11:42 16:30 20:22 RBC (4.40-5.60) 10*6/uL Hgb (13.0-17.0) g/dL Hct (39.6-50.0) % MCV (80.0-97.0) fL MCHC (32.0-37.0) g/dL Plt Count (140-440) 10*3/uL Chloride (98-107) mmol/L Carbon Dioxide (22-30) mmol/L BUN (9-20) mg/dL Creatinine (0.66-1.25) mg/dL Glucose (74-99) mg/dL POC Glucose (mg/dL) 132 H 178 H 111 H (70-110) mg/dL Hemoglobin A1c (<=6.0) % 08/21/24 Range/Units 05:39 RBC (4.40-5.60) 10*6/uL Hgb (13.0-17.0) g/dL Hct (39.6-50.0) % MCV (80.0-97.0) fL MCHC (32.0-37.0) g/dL Plt Count (140-440) 10*3/uL Chloride (98-107) mmol/L Carbon Dioxide 20 L (22-30) mmol/L BUN 69 H (9-20) mg/dL Creatinine 2.81 H (0.66-1.25) mg/dL Glucose (74-99) mg/dL POC Glucose (mg/dL) (70-110) mg/dL Hemoglobin A1c (<=6.0) %
[2024-08-21 11:59] LABS: Glucose,Whole Blood 256 mg/dL (70-110)
--- NOTE | 2024-08-21 15:43 | P.PN ---
Subjective Progress Note Date: 08/21/24 Principal diagnosis: Reason for follow-up is right lower extremity cellulitis Patient is a 79-year-old male past medical history significant for coronary artery disease heart failure with hypercapnia spondylitis hypertension prostate disorder atrial fibrillation presenting to the hospital for evaluation of increasing shortness of breath and lower extremity swelling with redness to the right leg and has been diagnosed with cellulitis prompted this consultation. On today's evaluation that is 08/21/2024, Patient is afebrile patient is currently on 3 L current oxygen and denies having any shortness of breath, the patient denies any chest pain or cough, the patient denies any nausea vomiting did not have any abdominal pain and no diarrhea circumventing of pain to the lower extremity but slightly decreased. Patient did have a creatinine 2.81 no CBC was done today Objective - Vital Signs Vital signs: Vital Signs Temp 97.6 F 08/21/24 09:30 Pulse 69 08/21/24 13:45 Resp 18 08/21/24 13:45 BP 115/69 08/21/24 12:31 Pulse Ox 96 08/21/24 12:31 FiO2 Intake & Output 08/20/24 08/21/24 08/21/24 18:59 06:59 18:59 Intake Total 720 380 Output Total 400 Balance 720 -400 380 Weight 75.6 kg Intake: IV 20 Invasive Line 1 20 Oral 720 360 Output: Urine 400 Other: Voiding Method Toilet Toilet Toilet - Exam GENERAL DESCRIPTION: An elderly male lying in bed in no distress RESPIRATORY SYSTEM: Unlabored breathing , decreased breath sounds at bases HEART: S1 S2 regular rate and rhythm , ABDOMEN: Soft , no tenderness EXTREMITIES: Leg currently wrapped in the Carroll wrap - Labs CBC & Chem 7: 08/20/24 08:10 08/21/24 05:39 Labs: Abnormal Lab Results - Last 24 Hours (Table) 08/20/24 08/20/24 08/20/24 Range/Units 08:10 16:30 20:22 Carbon Dioxide (22-30) mmol/L BUN (9-20) mg/dL Creatinine (0.66-1.25) mg/dL POC Glucose (mg/dL) 178 H 111 H (70-110) mg/dL Hemoglobin A1c 6.7 H (<=6.0) % 08/21/24 08/21/24 Range/Units 05:39 11:57 Carbon Dioxide 20 L (22-30) mmol/L BUN 69 H (9-20) mg/dL Creatinine 2.81 H (0.66-1.25) mg/dL POC Glucose (mg/dL) 256 H (70-110) mg/dL Hemoglobin A1c (<=6.0) % Assessment and Plan (1) Cellulitis of right leg Current Visit: Yes Status: Acute Code(s): L03.115 - CELLULITIS OF RIGHT LOWER LIMB SNOMED Code(s): 67854086991749506 (2) Allergy to multiple antibiotics Current Visit: Yes Status: Acute Code(s): Z88.1 - ALLERGY STATUS TO OTHER ANTIBIOTIC AGENTS SNOMED Code(s): 339185438 Plan: 1patient presented to the hospital with shortness of breath likely fluid overload in this patient also have evidence of bilateral lower extremity swelling with more erythema to the right leg concerning for cellulitis likely from gram-positive skin regi in this patient with evidence of fluid overload and likely streptococcal disease 2-patient with multiple antibiotic ALLERGIES that would limit the number of antibiotic safe to use 3-patient to continue with-Carroll wrap to the leg to keep the swelling down, who will consider cefazolin while in patient transition to oral Keflex on discharge Dictation was produced using [employer] dictation software. please excuse any grammatical, word or spelling errors. Time with Patient: Less than 30
--- NOTE | 2024-08-21 16:18 | P.PN ---
Subjective Progress Note Date: 08/21/24 79-year-old male with history of atrial fibrillation on Eliquis, CAD status post CABG, CHF, ischemic cardiomyopathy with ejection fraction of 15 to 20%, type 2 diabetes, hypertension, CKD stage IV came to the ER via EMS with concerns for bilateral lower extremity edema and exertional dyspnea getting progressively worse from couple weeks. Patient was recently hospitalized and was treated for acute on chronic congestive heart failure exacerbation and KATIE. Patient reports that he continued to experience worsening bilateral leg edema and exertional dyspnea after he was discharged and he finally decided to come to the hospital for further evaluation. Patient reports cough which is mildly productive, orthopnea, PND. He also noticed redness and erythema with some pain in his right lower extremity since 2 weeks. Patient reports that his urine output has mildly decreased. He denies any chest pain but reports fatigue and dizziness. He reports no fall episodes. Laboratory evaluation in the ER shows WBC 6.46, hemoglobin 10.4, hematocrit 32.8, MCV 99.4, platelet count 156, PT 13.8, INR 1.3, APTT 31.1, sodium 140, potassium 2.7, chloride 108, bicarb 19, BUN 58, creatinine 2.75, EGFR 21, glucose 177, troponin high 0.045, 0.039, 0.02, NT proBNP 45334. Chest x-ray shows bilateral pleural effusions with pulmonary vascular congestion. EKG shows atrial fibrillation with ventricular rate of 65 bpm, QRS duration 102, QTc [address]-T wave changes noted. Vital signs on arrival shows temperature of 98.0 F, pulse rate of 70, respiratory rate 24, blood pressure 120/69, oxygen saturation 99% on 2 L via nasal cannula. 08/20. Patient seen and examined. Labs reviewed showed WBC 5.58, hemoglobin 0.2, platelet count 120, sodium 140, potassium 3.7, BUN 63, creatinine 2.74. Still has swelling of lower extremities 08/21/2024 Patient seen and examined at the bedside. No acute events overnight. Patient continues to feel mildly short of breath. Still has mild swelling in the legs. Currently on IV antibiotics for lower extremity cellulitis. Sodium 141, potassium 4.6, BUN 69, creatinine 2.81. Fluid balance is positive. REVIEW OF SYSTEMS: CONSTITUTIONAL: No fever, no malaise,. CARDIOVASCULAR: No chest pain, no palpitations, no syncope. PULMONARY: No shortness of breath, no cough, GASTROINTESTINAL: No diarrhea, no nausea, no vomiting, no abdominal pain. NEUROLOGICAL: No headaches, no weakness, PHYSICAL EXAMINATION: GENERAL: The patient is alert and oriented x3, ill looking HEENT: Pupils are round and equally reacting to light. EOMI. No scleral icterus. No conjunctival pallor. Normocephalic, atraumatic. No pharyngeal erythema. No thyromegaly. CARDIOVASCULAR: S1 and S2 present. No murmurs, rubs, or gallops. PULMONARY: Chest is clear to auscultation, no wheezing or crackles. ABDOMEN: Soft, nontender, nondistended, normoactive bowel sounds. No palpable or ganomegaly. MUSCULOSKELETAL: No joint swelling or deformity. EXTREMITIES: No cyanosis, clubbing 3+ pitting edema lower extremities, right lower extremity erythema seen NEUROLOGICAL: Gross neurological examination did not reveal any focal deficits. SKIN: No rashes. Assessment and plan # Acute on chronic systolic congestive heart failure exacerbation #Acute hypoxemic respiratory failure secondary to above #Cardiorenal syndrome, at baseline creatinine of 2.75 #Ischemic cardiomyopathy with ejection fraction of 15 to 20% #Elevated troponin I secondary to type II NSTEMI secondary to above Continue oxygen therapy as needed Strict I's and O's, daily weights Continue with Lasix 40 mg p.o. twice daily Continue Aldactone 25 mg p.o. daily Continue with statin, carvedilol, aspirin Cardiology following Add metolazone 5 mg once daily #Type 2 diabetes mellitus DC glipizide Add Lantus 15 units at bedtime and Humalog 5 units 3 times daily with meals Continue sliding scale insulin Continue monitor for hypoglycemia #Right lower extremity cellulitis Wound care c/w IV cefazolin Infectious disease on board, appreciate recs DVT prophylaxis: Eliquis GI prophylaxis: None F: On fluid restriction E: Replete as needed N: Heart healthy diet with fluid restriction A: Ambulatory CODE STATUS: Full code Discussed with: Patient Anticipated discharge place: Pending clinical course Dictation was produced using [employer] dictation software. Please excuse any grammatical, word or spelling errors. Attestation I have seen and examined this patient with my resident , discussed the same with the resident/JAIME, and agree with the dictator's assessment and plan as written Dr. Juve saucedo Objective - Vital Signs Vital signs: Vital Signs Temp 97.6 F 08/21/24 09:30 Pulse 69 08/21/24 13:45 Resp 18 08/21/24 13:45 BP 115/69 08/21/24 12:31 Pulse Ox 96 08/21/24 12:31 FiO2 Intake & Output 08/20/24 08/21/24 08/21/24 18:59 06:59 18:59 Intake Total 720 380 Output Total 400 Balance 720 -400 380 Weight 75.6 kg Intake: IV 20 Invasive Line 1 20 Oral 720 360 Output: Urine 400 Other: Voiding Method Toilet Toilet Toilet - Labs CBC & Chem 7: 08/22/24 06:40 08/24/24 05:28 Labs: Abnormal Lab Results - Last 24 Hours (Table) 08/20/24 08/20/24 08/20/24 Range/Units 08:10 16:30 20:22 Carbon Dioxide (22-30) mmol/L BUN (9-20) mg/dL Creatinine (0.66-1.25) mg/dL POC Glucose (mg/dL) 178 H 111 H (70-110) mg/dL Hemoglobin A1c 6.7 H (<=6.0) % 08/21/24 08/21/24 Range/Units 05:39 11:57 Carbon Dioxide 20 L (22-30) mmol/L BUN 69 H (9-20) mg/dL Creatinine 2.81 H (0.66-1.25) mg/dL POC Glucose (mg/dL) 256 H (70-110) mg/dL Hemoglobin A1c (<=6.0) %
[2024-08-21 16:37] LABS: Glucose,Whole Blood 259 mg/dL (70-110)
[2024-08-21] MEDS: INSULIN LISPRO (HumaLOG) 100 UNIT/ML 10 mL VL SQ SCH (17:33)
[2024-08-21] MEDS: metOLazone 5 MG TAB PO SCH (17:47)
[2024-08-21 20:55] LABS: Glucose,Whole Blood 169 mg/dL (70-110)
[2024-08-21] MEDS: INSULIN GLARGINE (LANTUS) 100 UNIT/ML SYR SQ SCH (20:55)
[2024-08-22 05:53] LABS: Glucose,Whole Blood 69 mg/dL (70-110)
[2024-08-22 06:08] LABS: Glucose,Whole Blood 73 mg/dL (70-110)
[2024-08-22 06:57] LABS: Basophils # (A) 0.03 10*3/uL (0.00-0.10); Basophils % (A) 0.5 %; Eosinophils % (A) 1.6 %; HCT 33.4 % (39.6-50.0); HGB 10.6 g/dL (13.0-17.0); Lymphocytes # (A) 1.49 10*3/uL (0.90-5.00); Lymphocytes % (A) 23.2 %; MCH 31.9 pg (27.0-32.0); MCHC 31.7 g/dL (32.0-37.0); MCV 100.6 fL (80.0-97.0); Mean Platelet Volume 11.1 fL (9.5-12.2); Monocytes # (A) 0.41 10*3/uL (0.20-1.00); Monocytes % (A) 6.4 %; Neutrophils # (A) 4.37 10*3/uL (1.80-7.70); Neutrophils % (A) 67.8 %; Platelet Count 134 10*3/uL (140-440); RBC 3.32 10*6/uL (4.40-5.60); RDW 18.7 % (11.5-14.5); WBC 6.43 10*3/uL (4.50-10.00)
[2024-08-22 07:09] LABS: African American GFR (CKD) 22 (>60 ml/min/1.73 sqM); Anion Gap 12 mmol/L; Blood Urea Nitrogen 70 mg/dL (9-20); Calcium 9.1 mg/dL (8.4-10.2); Carbon Dioxide 21 mmol/L (22-30); Chloride 107 mmol/L (98-107); Glucose 92 mg/dL (74-99); Non-African American GFR(CKD) 19 (>60 ml/min/1.73 sqM); Potassium 4.2 mmol/L (3.5-5.1); Sodium 140 mmol/L (137-145)
[2024-08-22 09:02] LABS: Glucose,Whole Blood 108 mg/dL (70-110)
[2024-08-22] MEDS: FUROSEMIDE 40 MG TAB PO SCH ×2 (09:34→15:43)
--- NOTE | 2024-08-22 11:47 | P.PN ---
Subjective HISTORY OF PRESENT ILLNESS: This is a 79-year-old male with a past medical history significant for atrial fibrillation, coronary artery disease with previous CABG, ischemic cardiomyopathy, severe mitral regurgitation, congestive heart failure, chronic kidney disease, hypertension, hyperlipidemia, and diabetes. Patient follows in the office with Dr. Cortés. We have been asked to see the patient in consultation for congestive heart failure. Patient examined at the bedside. Patient presented to the hospital for chief complaint of shortness of breath. Patient states he has been having worsening shortness of breath and increased lower extremity edema for the past 2 to 3 weeks. He also reports weeping of his lower extremities. He denies any chest pain or pressure. The patient was found to be in acute CHF and was started on IV Lasix. The patient was seen in the office recently in June 2024. Dr. Cortés did discuss options including cardiac catheterization given his LV function and possible mitral clipping however patient declined and did not want to undergo any procedures. DIAGNOSTICS: - EKG reveals A-fib with controlled ventricular rate - Chest xray moderate cardiomegaly with CHF and pulmonary vascular congestion. Small bilateral pleural effusions. - Laboratory data: WBC 6.46. Hemoglobin 10.4. Platelet count 156. Sodium 140. Potassium 3.7. BUN 58. Creatinine 2.75. Troponin 0.042. 0.039. 0.045. proBNP 82,800. - Current home cardiac medications include Pravachol 40 mg at night, amlodipine 5 mg daily, Demadex 20 mg twice a day, metoprolol tartrate 25 mg twice daily, Eliquis 2.5 mg twice daily. - Most recent echocardiogram obtained in June 2024 revealed ejection fraction 15 to 20%, mild pulmonary hypertension, moderate to severe mitral regurgitation, moderate aortic regurgitation, mild tricuspid regurgitation - Cardiac catheterization history: Unknown 08/22/2024 Patient examined this morning at the bedside. Patient currently denies chest pain or pressure. He denies shortness of breath. Patient's Lasix was decreased and he was started on Zaroxolyn and Aldactone per primary medicine. Creatinine today 2.94. PHYSICAL EXAM: VITAL SIGNS: Reviewed. GENERAL: Well-developed in no acute distress. HEENT: Head is normocephalic. Pupils are equal, round. Sclerae anicteric. Mucous membranes of the mouth are moist. Neck supple. No JVD or thyromegaly LUNGS: Respirations even and unlabored. Lungs essentially clear to auscultation bilaterally. HEART: Irregular rate and rhythm. S1 and S2 heard. ABDOMEN: Soft. Nondistended. Nontender. EXTREMITIES: Normal range of motion. No clubbing or cyanosis. Peripheral pulses intact. 3+ bilateral pitting lower extremity edema. Right lower extremity with erythema and evidence of cellulitis with weeping. NEUROLOGIC: Awake and alert. Oriented x 3. ASSESSMENT: Shortness of breath Acute on chronic heart failure with reduced EF, 15 to 20% Right lower extremity cellulitis Coronary artery disease with previous CABG Ischemic cardiomyopathy Moderate to severe mitral regurgitation Persistent atrial fibrillation with controlled ventricular rate, Eliquis outpati ent Chronic kidney disease History of hypertension History of hyperlipidemia History of diabetes PLAN: No need to repeat echocardiogram as this was performed in June 2024 Amlodipine discontinued during hospitalization as this may be contributing to patient's lower extremity edema Discontinue Zaroxolyn Increase oral Lasix to 60 mg in the morning and 40 mg at night May continue with current dose of Aldactone ELISE hose to bilateral lower extremities Patient is stable for discharge home today from a cardiac standpoint Further recommendations pending patient course Nurse practitioner note has been reviewed by physician. Signing provider agrees with the documented findings, assessment, and plan of care documented by [employer] as a scribe. Objective - Vital Signs Vital signs: Vital Signs Temp 97.8 F 08/22/24 09:15 Pulse 57 L 08/22/24 11:26 Resp 20 08/22/24 11:26 BP 113/63 08/22/24 11:26 Pulse Ox 97 08/22/24 11:26 FiO2 Intake & Output 08/21/24 08/22/24 08/22/24 18:59 06:59 18:59 Intake Total 560 128 Balance 560 128 Weight 77.7 kg Intake: IV 20 10 Invasive Line 1 20 10 Oral 540 118 Other: Voiding Method Toilet Toilet Toilet - Labs CBC & Chem 7: 08/22/24 06:40 08/22/24 06:40 Labs: Abnormal Lab Results - Last 24 Hours (Table) 08/21/24 08/21/24 08/21/24 Range/Units 11:57 16:35 20:54 RBC (4.40-5.60) 10*6/uL Hgb (13.0-17.0) g/dL Hct (39.6-50.0) % MCV (80.0-97.0) fL MCHC (32.0-37.0) g/dL Plt Count (140-440) 10*3/uL Carbon Dioxide (22-30) mmol/L BUN (9-20) mg/dL Creatinine (0.66-1.25) mg/dL POC Glucose (mg/dL) 256 H 259 H 169 H (70-110) mg/dL 08/22/24 08/22/24 08/22/24 Range/Units 05:52 06:40 06:40 RBC 3.32 L (4.40-5.60) 10*6/uL Hgb 10.6 L (13.0-17.0) g/dL Hct 33.4 L (39.6-50.0) % MCV 100.6 H (80.0-97.0) fL MCHC 31.7 L (32.0-37.0) g/dL Plt Count 134 L (140-440) 10*3/uL Carbon Dioxide 21 L (22-30) mmol/L BUN 70 H (9-20) mg/dL Creatinine 2.94 H (0.66-1.25) mg/dL POC Glucose (mg/dL) 69 L (70-110) mg/dL
[2024-08-22 11:50] LABS: Glucose,Whole Blood 97 mg/dL (70-110)
--- NOTE | 2024-08-22 14:26 | P.HPIM ---
History of Present Illness H&P Date: 08/22/24 79-year-old male with history of atrial fibrillation on Eliquis, CAD status post CABG, CHF, ischemic cardiomyopathy with ejection fraction of 15 to 20%, type 2 diabetes, hypertension, CKD stage IV came to the ER via EMS with concerns for bilateral lower extremity edema and exertional dyspnea getting progressively worse from couple weeks. Patient was recently hospitalized and was treated for acute on chronic congestive heart failure exacerbation and KATIE. Patient reports that he continued to experience worsening bilateral leg edema and exertional dyspnea after he was discharged and he finally decided to come to the hospital for further evaluation. Patient reports cough which is mildly productive, orthopnea, PND. He also noticed redness and erythema with some pain in his right lower extremity since 2 weeks. Patient reports that his urine output has mildly decreased. He denies any chest pain but reports fatigue and dizziness. He reports no fall episodes. Laboratory evaluation in the ER shows WBC 6.46, hemoglobin 10.4, hematocrit 32.8, MCV 99.4, platelet count 156, PT 13.8, INR 1.3, APTT 31.1, sodium 140, potassium 2.7, chloride 108, bicarb 19, BUN 58, creatinine 2.75, EGFR 21, g lucose 177, troponin high 0.045, 0.039, 0.02, NT proBNP 12816. Chest x-ray shows bilateral pleural effusions with pulmonary vascular congestion. EKG shows atrial fibrillation with ventricular rate of 65 bpm, QRS duration 102, QTc [address]-T wave changes noted. Vital signs on arrival shows temperature of 98.0 F, pulse rate of 70, respiratory rate 24, blood pressure 120/69, oxygen saturation 99% on 2 L via nasal cannula. 08/20. Patient seen and examined. Labs reviewed showed WBC 5.58, hemoglobin 0.2, platelet count 120, sodium 140, potassium 3.7, BUN 63, creatinine 2.74. Still has swelling of lower extremities 08/21/2024 Patient seen and examined at the bedside. No acute events overnight. Patient continues to feel mildly short of breath. Still has mild swelling in the legs. Currently on IV antibiotics for lower extremity cellulitis. Sodium 141, potassium 4.6, BUN 69, creatinine 2.81. Fluid balance is positive. 08/22/2024 Patient seen and examined at bedside. No acute events overnight. Patient continues to feel mildly short of breath. Continues to endorse mild swelling of the legs but reports overall feeling better compared to how he presented initially. Patient continues to be on IV cefazolin for her lower extremity cellulitis. Patient reports good urine output. Lab work shows WBC 6.43, hemoglobin 10.6, chemistry shows sodium 140, potassium 4.2, BUN 70, creatinine 2.94. Anticipated discharge tomorrow to subacute rehab. REVIEW OF SYSTEMS: CONSTITUTIONAL: No fever, no malaise,. CARDIOVASCULAR: No chest pain, no palpitations, no syncope. PULMONARY: No shortness of breath, no cough, GASTROINTESTINAL: No diarrhea, no nausea, no vomiting, no abdominal pain. NEUROLOGICAL: No headaches, no weakness, PHYSICAL EXAMINATION: GENERAL: The patient is alert and oriented x3, ill looking HEENT: Pupils are round and equally reacting to light. EOMI. No scleral icterus. No conjunctival pallor. Normocephalic, atraumatic. No pharyngeal erythema. No thyromegaly. CARDIOVASCULAR: S1 and S2 present. No murmurs, rubs, or gallops. PULMONARY: Chest is clear to auscultation, no wheezing or crackles. ABDOMEN: Soft, nontender, nondistended, normoactive bowel sounds. No palpable organomegaly. MUSCULOSKELETAL: No joint swelling or deformity. EXTREMITIES: No cyanosis, clubbing 3+ pitting edema lower extremities, Carroll wrap on both lower extremities. NEUROLOGICAL: Gross neurological examination did not reveal any focal deficits. SKIN: No rashes. Assessment and plan # Acute on chronic systolic congestive heart failure exacerbation #Acute hypoxemic respiratory failure secondary to above #Cardiorenal syndrome, baseline creatinine is 2.75, currently 2.94 #Ischemic cardiomyopathy with ejection fraction of 15 to 20% #Elevated troponin I secondary to type II NSTEMI secondary to above Continue oxygen therapy as needed Strict I's and O's, daily weights Cardiology following, appreciate recs, Cardiology increased Lasix 40 mg in morning and 60 mg in evening Metolazone has been discontinued Continue Aldactone 25 mg p.o. daily Continue with statin, carvedilol, aspirin Continue to monitor BMP #Type 2 diabetes mellitus DC glipizide Add Lantus 15 units at bedtime and Humalog 5 units 3 times daily with meals Continue sliding scale insulin Continue monitor for hypoglycemia #Right lower extremity cellulitis Wound care c/w IV cefazolin Infectious disease on board, appreciate recs DVT prophylaxis: Eliquis GI prophylaxis: None F: On fluid restriction E: Replete as needed N: Heart healthy diet with fluid restriction A: Ambulatory CODE STATUS: Full code Discussed with: Patient Anticipated discharge place: Pending clinical course Dictation was produced using [employer] dictation software. Please excuse any grammatical, word or spelling errors. Past Medical History Past Medical History: Atrial Fibrillation, Coronary Artery Disease (CAD), Heart Failure, Diabetes Mellitus, Dialysis, Hypertension, Prostate Disorder, Renal Dis ease Additional Past Medical History / Comment(s): Dialysis Mon, Wed, Wed History of Any Multi-Drug Resistant Organisms: None Reported Past Surgical History: Cholecystectomy, Coronary Bypass/CABG Additional Past Surgical History / Comment(s): ACL ligament replacement, CABG 3 vessel Past Anesthesia/Blood Transfusion Reactions: No Reported Reaction Past Psychological History: Anxiety Smoking Status: Never smoker Past Alcohol Use History: None Reported Past Drug Use History: None Reported - Past Family History Father Family Medical History: Cancer Additional Family Medical History / Comment(s): pancreatic Medications and Allergies Home Medications Medication Instructions Recorded Confirmed Type Nitroglycerin Sl Tabs [Nitrostat] 0.4 mg SL Q5M PRN 02/11/22 08/18/24 History Pravastatin Sodium [Pravachol] 40 mg PO HS 02/11/22 08/18/24 History Tamsulosin HCl [Flomax] 0.4 mg PO BID 02/11/22 08/18/24 History Budesonide/Formoterol Fumarate 1 puff INHALATION RT-QID 06/05/22 08/18/24 History [Symbicort 160-4.5 Mcg Inhaler] glyBURIDE [Diabeta] 2.5 mg PO Q3D 11/02/22 08/18/24 History Apixaban [Eliquis] 2.5 mg PO BID 06/21/24 08/18/24 History Azelastine HCl [Astelin Nasal 1 spray EA NOSTRIL DAILY PRN 06/21/24 08/18/24 H istory [place]] Mv-Min/Folic/K1/Lycopen/Lutein 1 tab PO DAILY 06/21/24 08/18/24 History [Centrum Silver Men Tablet] Sodium Bicarbonate Tab 650 mg PO DAILY 06/21/24 08/18/24 History Acetaminophen [Tylenol 8 Hour] 1,300 mg PO Q6H PRN 08/18/24 08/18/24 History Torsemide [Demadex] 20 mg PO BID 08/18/24 08/18/24 History Allergies Allergy/AdvReac Type Severity Reaction Status Date / Time duloxetine [From Cymbalta] Allergy Rash/Hives Verified 08/18/24 16:16 enalaprilat [From Vasotec] Allergy Unknown Verified 08/18/24 16:16 levofloxacin [From Levaquin] Allergy Rash/Hives Verified 08/18/24 16:16 saxagliptin [From Onglyza] Allergy Rash/Hives Verified 08/18/24 16:16 sulfamethoxazole Allergy Rash/Hives Verified 08/18/24 16:16 [From Bactrim] trimethoprim [From Bactrim] Allergy Rash/Hives Verified 08/18/24 16:16 Physical Exam Vitals: Vital Signs Temp Pulse Pulse Resp BP BP Pulse Ox 08/22/24 11:26 57 L 20 113/63 97 08/22/24 09:15 97.8 F 63 20 105/61 99 08/22/24 08:24 95 08/22/24 03:10 65 18 104/59 95 08/21/24 23:14 97.9 F 64 18 130/69 08/21/24 20:44 78 08/21/24 20:32 72 08/21/24 19:35 97.5 F L 62 20 100/61 99 08/21/24 16:59 98.1 F 60 18 134/69 98 Intake and Output 08/21/24 08/22/24 08/22/24 22:59 06:59 14:59 Intake Total 180 246 Balance 180 246 Intake: IV 10 Invasive Line 1 10 Oral 180 236 Other: Voiding Method Toilet Toilet Toilet Weight 77.7 kg Results CBC & Chem 7: 08/22/24 06:40 08/22/24 06:40 Labs: Abnormal Lab Results - Last 24 Hours (Table) 08/21/24 08/21/24 08/22/24 Range/Units 16:35 20:54 05:52 RBC (4.40-5.60) 10*6/uL Hgb (13.0-17.0) g/dL Hct (39.6-50.0) % MCV (80.0-97.0) fL MCHC (32.0-37.0) g/dL Plt Count (140-440) 10*3/uL Carbon Dioxide (22-30) mmol/L BUN (9-20) mg/dL Creatinine (0.66-1.25) mg/dL POC Glucose (mg/dL) 259 H 169 H 69 L (70-110) mg/dL 08/22/24 08/22/24 Range/Units 06:40 06:40 RBC 3.32 L (4.40-5.60) 10*6/uL Hgb 10.6 L (13.0-17.0) g/dL Hct 33.4 L (39.6-50.0) % MCV 100.6 H (80.0-97.0) fL MCHC 31.7 L (32.0-37.0) g/dL Plt Count 134 L (140-440) 10*3/uL Carbon Dioxide 21 L (22-30) mmol/L BUN 70 H (9-20) mg/dL Creatinine 2.94 H (0.66-1.25) mg/dL POC Glucose (mg/dL) (70-110) mg/dL
--- NOTE | 2024-08-22 14:37 | P.PN ---
Subjective Progress Note Date: 08/22/24 Principal diagnosis: Reason for follow-up is right lower extremity cellulitis Patient is a 79-year-old male past medical history significant for coronary artery disease heart failure with hypercapnia spondylitis hypertension prostate disorder atrial fibrillation presenting to the hospital for evaluation of increasing shortness of breath and lower extremity swelling with redness to the right leg and has been diagnosed with cellulitis prompted this consultation. On today's evaluation that is 08/22/2024, patient has been afebrile, patient is breathing comfortably and is currently on 4 L current oxygen, patient denies having any chest pain and occasional dry cough, patient denies nausea vomiting or diarrhea and no abdominal pain, swelling to the lower extremity slightly decreased. Patient white count 6.43, creatinine is 2.94 Objective - Vital Signs Vital signs: Vital Signs Temp 97.8 F 08/22/24 09:15 Pulse 57 L 08/22/24 11:26 Resp 20 08/22/24 11:26 BP 113/63 08/22/24 11:26 Pulse Ox 97 08/22/24 11:26 FiO2 Intake & Output 08/21/24 08/22/24 08/22/24 18:59 06:59 18:59 Intake Total 560 246 Balance 560 246 Weight 77.7 kg Intake: IV 20 10 Invasive Line 1 20 10 Oral 540 236 Other: Voiding Method Toilet Toilet Toilet - Exam GENERAL DESCRIPTION: An elderly male lying in bed in no distress RESPIRATORY SYSTEM: Unlabored breathing , decreased breath sounds at bases HEART: S1 S2 regular rate and rhythm , ABDOMEN: Soft , no tenderness EXTREMITIES: Leg currently wrapped in the Carroll wrap - Labs CBC & Chem 7: 08/22/24 06:40 08/22/24 06:40 Labs: Abnormal Lab Results - Last 24 Hours (Table) 08/21/24 08/21/24 08/22/24 Range/Units 16:35 20:54 05:52 RBC (4.40-5.60) 10*6/uL Hgb (13.0-17.0) g/dL Hct (39.6-50.0) % MCV (80.0-97.0) fL MCHC (32.0-37.0) g/dL Plt Count (140-440) 10*3/uL Carbon Dioxide (22-30) mmol/L BUN (9-20) mg/dL Creatinine (0.66-1.25) mg/dL POC Glucose (mg/dL) 259 H 169 H 69 L (70-110) mg/dL 08/22/24 08/22/24 Range/Units 06:40 06:40 RBC 3.32 L (4.40-5.60) 10*6/uL Hgb 10.6 L (13.0-17.0) g/dL Hct 33.4 L (39.6-50.0) % MCV 100.6 H (80.0-97.0) fL MCHC 31.7 L (32.0-37.0) g/dL Plt Count 134 L (140-440) 10*3/uL Carbon Dioxide 21 L (22-30) mmol/L BUN 70 H (9-20) mg/dL Creatinine 2.94 H (0.66-1.25) mg/dL POC Glucose (mg/dL) (70-110) mg/dL Assessment and Plan (1) Cellulitis of right leg Current Visit: Yes Status: Acute Code(s): L03.115 - CELLULITIS OF RIGHT LOWER LIMB SNOMED Code(s): 60306212002715131 (2) Allergy to multiple antibiotics Current Visit: Yes Status: Acute Code(s): Z88.1 - ALLERGY STATUS TO OTHER ANTIBIOTIC AGENTS SNOMED Code(s): 651336167 Plan: 1patient presented to the hospital with shortness of breath likely fluid overload in this patient also have evidence of bilateral lower extremity swelling with more erythema to the right leg concerning for cellulitis likely from gram-positive skin regi in this patient with evidence of fluid overload and likely streptococcal disease 2-patient with multiple antibiotic ALLERGIES that would limit the number of antibiotic safe to use 3-patient is afebrile continue patient on cefazolin and Carroll wrap to leg to get the swelling down finishing therapy with oral Keflex Dictation was produced using [employer] dictation software. please excuse any grammatical, word or spelling errors. Time with Patient: Less than 30
--- NOTE | 2024-08-22 15:01 | P.PN ---
Subjective Progress Note Date: 08/22/24 79-year-old male with history of atrial fibrillation on Eliquis, CAD status post CABG, CHF, ischemic cardiomyopathy with ejection fraction of 15 to 20%, type 2 diabetes, hypertension, CKD stage IV came to the ER via EMS with concerns for bilateral lower extremity edema and exertional dyspnea getting progressively worse from couple weeks. Patient was recently hospitalized and was treated for acute on chronic congestive heart failure exacerbation and KATIE. Patient reports that he continued to experience worsening bilateral leg edema and exertional dyspnea after he was discharged and he finally decided to come to the hospital for further evaluation. Patient reports cough which is mildly productive, orthopnea, PND. He also noticed redness and erythema with some pain in his right lower extremity since 2 weeks. Patient reports that his urine output has mildly decreased. He denies any chest pain but reports fatigue and dizziness. He reports no fall episodes. Laboratory evaluation in the ER shows WBC 6.46, hemoglobin 10.4, hematocrit 32.8, MCV 99.4, platelet count 156, PT 13.8, INR 1.3, APTT 31.1, sodium 140, potassium 2.7, chloride 108, bicarb 19, BUN 58, creatinine 2.75, EGFR 21, glucose 177, troponin high 0.045, 0.039, 0.02, NT proBNP [id number]. Chest x-ray shows bilateral pleural effusions with pulmonary vascular congestion. EKG shows atrial fibrillation with ventricular rate of 65 bpm, QRS duration 102, QTc [address]-T wave changes noted. Vital signs on arrival shows temperature of 98.0 F, pulse rate of 70, respiratory rate 24, blood pressure 120/69, oxygen saturation 99% on 2 L via nasal cannula. 08/20. Patient seen and examined. Labs reviewed showed WBC 5.58, hemoglobin 0.2, platelet count 120, sodium 140, potassium 3.7, BUN 63, creatinine 2.74. Still has swelling of lower extremities 08/21/2024 Patient seen and examined at the bedside. No acute events overnight. Patient continues to feel mildly short of breath. Still has mild swelling in the legs. Currently on IV antibiotics for lower extremity cellulitis. Sodium 141, potassium 4.6, BUN 69, creatinine 2.81. Fluid balance is positive. 08/22/2024 Patient seen and examined at bedside. No acute events overnight. Patient continues to feel mildly short of breath. Continues to endorse mild swelling of the legs but reports overall feeling better compared to how he presented initially. Patient continues to be on IV cefazolin for her lower extremity cellulitis. Patient reports good urine output. Lab work shows WBC 6.43, hemoglobin 10.6, chemistry shows sodium 140, potassium 4.2, BUN 70, creatinine 2.94. Anticipated discharge tomorrow to subacute rehab. REVIEW OF SYSTEMS: CONSTITUTIONAL: No fever, no malaise,. CARDIOVASCULAR: No chest pain, no palpitations, no syncope. PULMONARY: No shortness of breath, no cough, GASTROINTESTINAL: No diarrhea, no nausea, no vomiting, no abdominal pain. NEUROLOGICAL: No headaches, no weakness, PHYSICAL EXAMINATION: GENERAL: The patient is alert and oriented x3, ill looking HEENT: Pupils are round and equally reacting to light. EOMI. No scleral icterus. No conjunctival pallor. Normocephalic, atraumatic. No pharyngeal erythema. No th yromegaly. CARDIOVASCULAR: S1 and S2 present. No murmurs, rubs, or gallops. PULMONARY: Chest is clear to auscultation, no wheezing or crackles. ABDOMEN: Soft, nontender, nondistended, normoactive bowel sounds. No palpable organomegaly. MUSCULOSKELETAL: No joint swelling or deformity. EXTREMITIES: No cyanosis, clubbing 3+ pitting edema lower extremities, Carroll wrap on both lower extremities. NEUROLOGICAL: Gross neurological examination did not reveal any focal deficits. SKIN: No rashes. Assessment and plan # Acute on chronic systolic congestive heart failure exacerbation #Acute hypoxemic respiratory failure secondary to above #Cardiorenal syndrome, baseline creatinine is 2.75, currently 2.94 #Ischemic cardiomyopathy with ejection fraction of 15 to 20% #Elevated troponin I secondary to type II NSTEMI secondary to above Continue oxygen therapy as needed Strict I's and O's, daily weights Cardiology following, appreciate recs, Cardiology increased Lasix 40 mg in morning and 60 mg in evening Metolazone has been discontinued Continue Aldactone 25 mg p.o. daily Continue with statin, carvedilol, aspirin Continue to monitor BMP #Type 2 diabetes mellitus DC glipizide Add Lantus 15 units at bedtime and Humalog 5 units 3 times daily with meals Continue sliding scale insulin Continue monitor for hypoglycemia #Right lower extremity cellulitis Wound care c/w IV cefazolin Infectious disease on board, appreciate recs DVT prophylaxis: Eliquis GI prophylaxis: None F: On fluid restriction E: Replete as needed N: Heart healthy diet with fluid restriction A: Ambulatory CODE STATUS: Full code Discussed with: Patient Anticipated discharge place: Pending clinical course Dictation was produced using [employer] dictation software. Please excuse any grammatical, word or spelling errors. Attestation: I have seen and examined this patient with my resident, assessment and plan discussed with the resident, agree with assessment and plan as written above. Dr. Quach Objective - Vital Signs Vital signs: Vital Signs Temp 97.8 F 08/22/24 09:15 Pulse 57 L 08/22/24 11:26 Resp 20 08/22/24 11:26 BP 113/63 08/22/24 11:26 Pulse Ox 97 08/22/24 11:26 FiO2 Intake & Output 08/21/24 08/22/24 08/22/24 18:59 06:59 18:59 Intake Total 560 246 Balance 560 246 Weight 77.7 kg Intake: IV 20 10 Invasive Line 1 20 10 Oral 540 236 Other: Voiding Method Toilet Toilet Toilet - Labs CBC & Chem 7: 08/22/24 06:40 08/22/24 06:40 Labs: Abnormal Lab Results - Last 24 Hours (Table) 08/21/24 08/21/24 08/22/24 Range/Units 16:35 20:54 05:52 RBC (4.40-5.60) 10*6/uL Hgb (13.0-17.0) g/dL Hct (39.6-50.0) % MCV (80.0-97.0) fL MCHC (32.0-37.0) g/dL Plt Count (140-440) 10*3/uL Carbon Dioxide (22-30) mmol/L BUN (9-20) mg/dL Creatinine (0.66-1.25) mg/dL POC Glucose (mg/dL) 259 H 169 H 69 L (70-110) mg/dL 08/22/24 08/22/24 Range/Units 06:40 06:40 RBC 3.32 L (4.40-5.60) 10*6/uL Hgb 10.6 L (13.0-17.0) g/dL Hct 33.4 L (39.6-50.0) % MCV 100.6 H (80.0-97.0) fL MCHC 31.7 L (32.0-37.0) g/dL Plt Count 134 L (140-440) 10*3/uL Carbon Dioxide 21 L (22-30) mmol/L BUN 70 H (9-20) mg/dL Creatinine 2.94 H (0.66-1.25) mg/dL POC Glucose (mg/dL) (70-110) mg/dL
[2024-08-22 16:42] LABS: Glucose,Whole Blood 52 mg/dL (70-110)
[2024-08-22 16:57] LABS: Glucose,Whole Blood 81 mg/dL (70-110)
[2024-08-22 20:11] LABS: Glucose,Whole Blood 136 mg/dL (70-110)
[2024-08-23 06:02] LABS: Glucose,Whole Blood 114 mg/dL (70-110)
[2024-08-23 07:12] LABS: African American GFR (CKD) 23 (>60 ml/min/1.73 sqM); Anion Gap 9 mmol/L; Blood Urea Nitrogen 69 mg/dL (9-20); Calcium 9.1 mg/dL (8.4-10.2); Carbon Dioxide 23 mmol/L (22-30); Chloride 105 mmol/L (98-107); Glucose 104 mg/dL (74-99); Non-African American GFR(CKD) 20 (>60 ml/min/1.73 sqM); Potassium 4.1 mmol/L (3.5-5.1); Sodium 137 mmol/L (137-145)
[2024-08-23] MEDS: FUROSEMIDE 20 MG TAB PO SCH (09:41)
[2024-08-23 09:44] LABS: Glucose,Whole Blood 99 mg/dL (70-110)
--- NOTE | 2024-08-23 11:20 | P.PN ---
Subjective HISTORY OF PRESENT ILLNESS: This is a 79-year-old male with a past medical history significant for atrial fibrillation, coronary artery disease with previous CABG, ischemic cardiomyopathy, severe mitral regurgitation, congestive heart failure, chronic kidney disease, hypertension, hyperlipidemia, and diabetes. Patient follows in the office with Dr. Cortés. We have been asked to see the patient in consultation for congestive heart failure. Patient examined at the bedside. Patient presented to the hospital for chief complaint of shortness of breath. Patient states he has been having worsening shortness of breath and increased lower extremity edema for the past 2 to 3 weeks. He also reports weeping of his lower extremities. He denies any chest pain or pressure. The patient was found to be in acute CHF and was started on IV Lasix. The patient was seen in the office recently in June 2024. Dr. Cortés did discuss options including cardiac catheterization given his LV function and possible mitral clipping however patient declined and did not want to undergo any procedures. DIAGNOSTICS: - EKG reveals A-fib with controlled ventricular rate - Chest xray moderate cardiomegaly with CHF and pulmonary vascular congestion. Small bilateral pleural effusions. - Laboratory data: WBC 6.46. Hemoglobin 10.4. Platelet count 156. Sodium 140. Potassium 3.7. BUN 58. Creatinine 2.75. Troponin 0.042. 0.039. 0.045. proBNP 82,800. - Current home cardiac medications include Pravachol 40 mg at night, amlodipine 5 mg daily, Demadex 20 mg twice a day, metoprolol tartrate 25 mg twice daily, Eliquis 2.5 mg twice daily. - Most recent echocardiogram obtained in June 2024 revealed ejection fraction 15 to 20%, mild pulmonary hypertension, moderate to severe mitral regurgitation, moderate aortic regurgitation, mild tricuspid regurgitation - Cardiac catheterization history: Unknown 08/22/2024 Patient examined this morning at the bedside. Patient currently denies chest pain or pressure. He denies shortness of breath. Patient's Lasix was decreased and he was started on Zaroxolyn and Aldactone per primary medicine. Creatinine today 2.94. 08/23/2024 Patient examined this morning at bedside. Patient currently denies chest pain o r pressure. He denies shortness of breath. He remains on oral diuretics. Creatinine today 2.80. PHYSICAL EXAM: VITAL SIGNS: Reviewed. GENERAL: Well-developed in no acute distress. HEENT: Head is normocephalic. Pupils are equal, round. Sclerae anicteric. Mucous membranes of the mouth are moist. Neck supple. No JVD or thyromegaly LUNGS: Respirations even and unlabored. Lungs essentially clear to auscultation bilaterally. HEART: Irregular rate and rhythm. S1 and S2 heard. ABDOMEN: Soft. Nondistended. Nontender. EXTREMITIES: Normal range of motion. No clubbing or cyanosis. Peripheral puls es intact. 3+ bilateral pitting lower extremity edema. Right lower extremity with erythema and evidence of cellulitis with weeping. NEUROLOGIC: Awake and alert. Oriented x 3. ASSESSMENT: Shortness of breath Acute on chronic heart failure with reduced EF, 15 to 20% Right lower extremity cellulitis Coronary artery disease with previous CABG Ischemic cardiomyopathy Moderate to severe mitral regurgitation Persistent atrial fibrillation with controlled ventricular rate, Eliquis outpatient Chronic kidney disease History of hypertension History of hyperlipidemia History of diabetes PLAN: No need to repeat echocardiogram as this was performed in June 2024 Amlodipine discontinued during hospitalization as this may be contributing to patient's lower extremity edema Continue current dose of Zaroxolyn and Lasix Patient is stable for discharge home today from a cardiac standpoint Recommend outpatient BMP in 1 week Further recommendations pending patient course Nurse practitioner note has been reviewed by physician. Signing provider agrees with the documented findings, assessment, and plan of care documented by BOOKMAKER'S CLERK as a scribe. Objective - Vital Signs Vital signs: Vital Signs Temp 97.4 F L 08/23/24 03:16 Pulse 67 08/23/24 09:22 Resp 16 08/23/24 09:17 BP 130/74 08/23/24 09:17 Pulse Ox 99 08/23/24 09:17 FiO2 Intake & Output 08/22/24 08/23/24 08/23/24 18:59 06:59 18:59 Intake Total 486 500 250 Output Total 1575 Balance 486 -1075 250 Weight 77.1 kg Intake: IV 10 10 Invasive Line 1 10 10 Oral 476 500 240 Output: Urine 1575 Other: Voiding Method Toilet Toilet # Voids 3 - Labs CBC & Chem 7: 08/22/24 06:40 08/23/24 06:04 Labs: Abnormal Lab Results - Last 24 Hours (Table) 08/22/24 08/22/24 08/23/24 Range/Units 16:40 20:09 06:00 BUN (9-20) mg/dL Creatinine (0.66-1.25) mg/dL Glucose (74-99) mg/dL POC Glucose (mg/dL) 52 L 136 H 114 H (70-110) mg/dL 08/23/24 Range/Units 06:04 BUN 69 H (9-20) mg/dL Creatinine 2.80 H (0.66-1.25) mg/dL Glucose 104 H (74-99) mg/dL POC Glucose (mg/dL) (70-110) mg/dL
[2024-08-23 11:36] LABS: Glucose,Whole Blood 102 mg/dL (70-110)
--- NOTE | 2024-08-23 12:08 | XR ---
EXAMINATION TYPE: XR chest 1V portable DATE OF EXAM: 08/23/2024 11:56 AM COMPARISON: Chest radiographs from 08/18/2024. CLINICAL INDICATION: Male, 79 years old with history of CHF, shortness of breath; [facility] TECHNIQUE: XR chest 1V portable Frontal view of the chest. FINDINGS: Lungs/Pleura: No evidence of focal consolidation or pneumothorax. Blunting of the costophrenic angles is present. Pulmonary vascularity: Pulmonary vascular congestion. Heart/mediastinum: Cardiomediastinal silhouette is enlarged. Musculoskeletal: No acute osseous pathology. Midline sternotomy wires are noted. Other findings: None IMPRESSION: Similar, cardiomegaly, pulmonary vascular congestion and bilateral pleural effusions. Correlate with BNP for congestive heart failure. [facility], , 08/23/2024 12:06 PM
--- NOTE | 2024-08-23 16:26 | P.PN ---
Subjective Progress Note Date: 08/23/24 79-year-old male with history of atrial fibrillation on Eliquis, CAD status post CABG, CHF, ischemic cardiomyopathy with ejection fraction of 15 to 20%, type 2 diabetes, hypertension, CKD stage IV came to the ER via EMS with concerns for bilateral lower extremity edema and exertional dyspnea getting progressively worse from couple weeks. Patient was recently hospitalized and was treated for acute on chronic congestive heart failure exacerbation and KAITE. Patient reports that he continued to experience worsening bilateral leg edema and exertional dyspnea after he was discharged and he finally decided to come to the hospital for further evaluation. Patient reports cough which is mildly productive, orthopnea, PND. He also noticed redness and erythema with some pain in his right lower extremity since 2 weeks. Patient reports that his urine output has mildly decreased. He denies any chest pain but reports fatigue and dizziness. He reports no fall episodes. Laboratory evaluation in the ER shows WBC 6.46, hemoglobin 10.4, hematocrit 32.8, MCV 99.4, platelet count 156, PT 13.8, INR 1.3, APTT 31.1, sodium 140, potassium 2.7, chloride 108, bicarb 19, BUN 58, creatinine 2.75, EGFR 21, glucose 177, troponin high 0.045, 0.039, 0.02, NT proBNP [id number]. Chest x-ray shows bilateral pleural effusions with pulmonary vascular congestion. EKG shows atrial fibrillation with ventricular rate of 65 bpm, QRS duration 102, QTc [address]-T wave changes noted. Vital signs on arrival shows temperature of 98.0 F, pulse rate of 70, respiratory rate 24, blood pressure 120/69, oxygen saturation 99% on 2 L via nasal cannula. 08/20. Patient seen and examined. Labs reviewed showed WBC 5.58, hemoglobin 0.2, platelet count 120, sodium 140, potassium 3.7, BUN 63, creatinine 2.74. Still has swelling of lower extremities 08/21/2024 Patient seen and examined at the bedside. No acute events overnight. Patient continues to feel mildly short of breath. Still has mild swelling in the legs. Currently on IV antibiotics for lower extremity cellulitis. Sodium 141, potassium 4.6, BUN 69, creatinine 2.81. Fluid balance is positive. 08/22/2024 Patient seen and examined at bedside. No acute events overnight. Patient continues to feel mildly short of breath. Continues to endorse mild swelling of the legs but reports overall feeling better compared to how he presented initially. Patient continues to be on IV cefazolin for her lower extremity cellulitis. Patient reports good urine output. Lab work shows WBC 6.43, hemoglobin 10.6, chemistry shows sodium 140, potassium 4.2, BUN 70, creatinine 2.94. Anticipated discharge tomorrow to subacute rehab. 08/23/2024 Patient seen and examined at the bedside. No acute events overnight. Patient still complaining of mild shortness of breath. Patient on 2 L of oxygen via nasal cannula. Repeat chest x-ray shows mild bilateral pleural effusion with vascular congestion. Patient to continue to be on oral Lasix twice daily. Will also assess oxygen requirement for home. Although he does report improvement in his leg edema. He continues to be on IV cefazolin for his lower extremity cellulitis. Patient reports good urine output. Sodium 137, potassium 4.1, BUN 69, creatinine 2.80. Anticipating discharge tomorrow to home with [facility]. REVIEW OF SYSTEMS: CONSTITUTIONAL: No fever, no malaise,. CARDIOVASCULAR: No chest pain, no palpitations, no syncope. PULMONARY: No shortness of breath, no cough, GASTROINTESTINAL: No diarrhea, no nausea, no vomiting, no abdominal pain. NEUROLOGICAL: No headaches, no weakness, PHYSICAL EXAMINATION: GENERAL: The patient is alert and oriented x3, ill looking HEENT: Pupils are round and equally reacting to light. EOMI. No scleral icterus. No conjunctival pallor. Normocephalic, atraumatic. No pharyngeal erythema. No thyromegaly. CARDIOVASCULAR: S1 and S2 present. No murmurs, rubs, or gallops. PULMONARY: Chest is clear to auscultation, no wheezing or crackles. ABDOMEN: Soft, nontender, nondistended, normoactive bowel sounds. No palpable organomegaly. MUSCULOSKELETAL: No joint swelling or deformity. EXTREMITIES: No cyanosis, clubbing 3+ pitting edema lower extremities, Carroll wrap on both lower extremities. NEUROLOGICAL: Gross neurological examination did not reveal any focal deficits. SKIN: No rashes. Assessment and plan # Acute on chronic systolic congestive heart failure exacerbation #Acute hypoxemic respiratory failure secondary to above #Cardiorenal syndrome, baseline creatinine is 2.75, currently 2.80 #Ischemic cardiomyopathy with ejection fraction of 15 to 20% #Elevated troponin I secondary to type II NSTEMI secondary to above Continue oxygen therapy as needed Strict I's and O's, daily weights Cardiology following, appreciate recs, Cardiology increased Lasix 40 mg in morning and 60 mg in evening Metolazone has been discontinued Continue Aldactone 25 mg p.o. daily Continue with statin, carvedilol, aspirin Continue to monitor BMP #Type 2 diabetes mellitus DC glipizide Add Lantus 15 units at bedtime and Humalog 5 units 3 times daily with meals Continue sliding scale insulin Continue monitor for hypoglycemia #Right lower extremity cellulitis Wound care c/w IV cefazolin, oral Keflex upon discharge. Infectious disease on board, appreciate recs DVT prophylaxis: Eliquis GI prophylaxis: None F: On fluid restriction E: Replete as needed N: Heart healthy diet with fluid restriction A: Ambulatory CODE STATUS: Full code Discussed with: Patient Anticipated discharge place: Pending clinical course Dictation was produced using [employer] dictation software. Please excuse any gr ammatical, word or spelling errors. Attestation: I have seen and examined this patient with my resident, assessment and plan discussed with the resident, agree with assessment and plan as written above. Dr. Quach Objective - Vital Signs Vital signs: Vital Signs Temp 97.6 F 08/23/24 16:00 Pulse 61 08/23/24 16:00 Resp 22 08/23/24 16:00 BP 124/69 08/23/24 16:00 Pulse Ox 98 08/23/24 16:00 FiO2 Intake & Output 08/22/24 08/23/24 08/23/24 18:59 06:59 18:59 Intake Total 486 500 378 Output Total 1575 Balance 486 -1075 378 Weight 77.1 kg Intake: IV 10 20 Invasive Line 1 10 20 Oral 476 500 358 Output: Urine 1575 Other: Voiding Method Toilet Toilet Toilet # Voids 3 - Labs CBC & Chem 7: 08/22/24 06:40 08/23/24 06:04 Labs: Abnormal Lab Results - Last 24 Hours (Table) 08/22/24 08/22/24 08/23/24 Range/Units 16:40 20:09 06:00 BUN (9-20) mg/dL Creatinine (0.66-1.25) mg/dL Glucose (74-99) mg/dL POC Glucose (mg/dL) 52 L 136 H 114 H (70-110) mg/dL 08/23/24 Range/Units 06:04 BUN 69 H (9-20) mg/dL Creatinine 2.80 H (0.66-1.25) mg/dL Glucose 104 H (74-99) mg/dL POC Glucose (mg/dL) (70-110) mg/dL
[2024-08-23 16:57] LABS: Glucose,Whole Blood 171 mg/dL (70-110)
[2024-08-23 19:59] LABS: Glucose,Whole Blood 113 mg/dL (70-110)
[2024-08-24 03:59] LABS: Glucose,Whole Blood 65 mg/dL (70-110)
[2024-08-24 04:18] LABS: Glucose,Whole Blood 75 mg/dL (70-110)
[2024-08-24 04:49] VITALS: TEMP 98
[2024-08-24 06:02] LABS: Glucose,Whole Blood 116 mg/dL (70-110)
[2024-08-24 06:22] LABS: African American GFR (CKD) 22 (>60 ml/min/1.73 sqM); Anion Gap 11 mmol/L; Blood Urea Nitrogen 79 mg/dL (9-20); Calcium 9.1 mg/dL (8.4-10.2); Carbon Dioxide 25 mmol/L (22-30); Chloride 100 mmol/L (98-107); Glucose 105 mg/dL (74-99); Non-African American GFR(CKD) 19 (>60 ml/min/1.73 sqM); Potassium 4.8 mmol/L (3.5-5.1); Sodium 136 mmol/L (137-145)
[2024-08-24 11:22] VITALS: BP 121/63; PULSE 71; RESP 18
[2024-08-24 11:26] LABS: Glucose,Whole Blood 204 mg/dL (70-110)
--- NOTE | 2024-08-24 12:22 | P.PN ---
Subjective HISTORY OF PRESENT ILLNESS: This is a 79-year-old male with a past medical history significant for atrial fibrillation, coronary artery disease with previous CABG, ischemic cardiomyopathy, severe mitral regurgitation, congestive heart failure, chronic kidney disease, hypertension, hyperlipidemia, and diabetes. Patient follows in the office with Dr. Cortés. We have been asked to see the patient in consultation for congestive heart failure. Patient examined at the bedside. Patient presented to the hospital for chief complaint of shortness of breath. Patient states he has been having worsening shortness of breath and increased lower extremity edema for the past 2 to 3 weeks. He also reports weeping of his lower extremities. He denies any chest pain or pressure. The patient was found to be in acute CHF and was started on IV Lasix. The patient was seen in the office recently in June 2024. Dr. Cortés did discuss options including cardiac catheterization given his LV function and possible mitral clipping however patient declined and did not want to undergo any procedures. DIAGNOSTICS: - EKG reveals A-fib with controlled ventricular rate - Chest xray moderate cardiomegaly with CHF and pulmonary vascular congestion. Small bilateral pleural effusions. - Laboratory data: WBC 6.46. Hemoglobin 10.4. Platelet count 156. Sodium 140. Potassium 3.7. BUN 58. Creatinine 2.75. Troponin 0.042. 0.039. 0.045. proBNP 82,800. - Current home cardiac medications include Pravachol 40 mg at night, amlodipine 5 mg daily, Demadex 20 mg twice a day, metoprolol tartrate 25 mg twice daily, Eliquis 2.5 mg twice daily. - Most recent echocardiogram obtained in June 2024 revealed ejection fraction 15 to 20%, mild pulmonary hypertension, moderate to severe mitral regurgitation, moderate aortic regurgitation, mild tricuspid regurgitation - Cardiac catheterization history: Unknown 08/22/2024 Patient examined this morning at the bedside. Patient currently denies chest pain or pressure. He denies shortness of breath. Patient's Lasix was decreased and he was started on Zaroxolyn and Aldactone per primary medicine. Creatinine today 2.94. 08/23/2024 Patient examined this morning at bedside. Patient currently denies chest pain o r pressure. He denies shortness of breath. He remains on oral diuretics. Creatinine today 2.80. 08/24/2024 Patient examined this morning at bedside. Patient currently denies chest pain or pressure. He denies shortness of breath. He remains on oral diuretics. Creatinine today 2.92. PHYSICAL EXAM: VITAL SIGNS: Reviewed. GENERAL: Well-developed in no acute distress. HEENT: Head is normocephalic. Pupils are equal, round. Sclerae anicteric. Mucous membranes of the mouth are moist. Neck supple. No JVD or thyromegaly LUNGS: Respirations even and unlabored. Lungs essentially clear to auscultation bilaterally. HEART: Irregular rate and rhythm. S1 and S2 heard. ABDOMEN: Soft. Nondistended. Nontender. EXTREMITIES: Normal range of motion. No clubbing or cyanosis. Peripheral pulses intact. 2+ bilateral pitting lower extremity edema. NEUROLOGIC: Awake and alert. Oriented x 3. ASSESSMENT: Shortness of breath Acute on chronic heart failure with reduced EF, 15 to 20% Right lower extremity cellulitis Coronary artery disease with previous CABG Ischemic cardiomyopathy Moderate to severe mitral regurgitation Persistent atrial fibrillation with controlled ventricular rate, Eliquis outp atient Chronic kidney disease History of hypertension History of hyperlipidemia History of diabetes PLAN: No need to repeat echocardiogram as this was performed in June 2024 Amlodipine discontinued during hospitalization as this may be contributing to patient's lower extremity edema Continue current dose of Aldactone and Lasix Patient is stable for discharge home today from a cardiac standpoint We will sign off. Please reconsult if needed. Nurse practitioner note has been reviewed by physician. Signing provider agrees with the documented findings, assessment, and plan of care documented by FORMING FIXER as a scribe. Objective - Vital Signs Vital signs: Vital Signs Temp 98.0 F 08/24/24 04:00 Pulse 71 08/24/24 11:21 Resp 18 08/24/24 11:21 BP 121/63 08/24/24 11:21 Pulse Ox 96 08/24/24 11:21 FiO2 Intake & Output 08/23/24 08/24/24 08/24/24 18:59 06:59 18:59 Intake Total 496 20 200 Output Total 325 Balance 496 -305 200 Weight 76.7 kg Intake: IV 20 20 Invasive Line 1 20 20 Oral 476 200 Output: Urine 325 Other: Voiding Method Toilet Toilet - Labs CBC & Chem 7: 08/22/24 06:40 08/24/24 05:28 Labs: Abnormal Lab Results - Last 24 Hours (Table) 08/23/24 08/23/24 08/24/24 Range/Units 16:56 19:57 03:57 Sodium (137-145) mmol/L BUN (9-20) mg/dL Creatinine (0.66-1.25) mg/dL Glucose (74-99) mg/dL POC Glucose (mg/dL) 171 H 113 H 65 L (70-110) mg/dL 08/24/24 08/24/24 08/24/24 Range/Units 05: 06:00 11:25 Sodium 136 L (137-145) mmol/L BUN 79 H (9-20) mg/dL Creatinine 2.92 H (0.66-1.25) mg/dL Glucose 105 H (74-99) mg/dL POC Glucose (mg/dL) 116 H 204 H (70-110) mg/dL
--- NOTE | 2024-08-24 13:56 | P.DS ---
Providers Date of admission: 08/18/24 15:39 Attending physician: Juve Coates MD Consults: 08/18/24 15:39 Consult Physician Routine Consulting Provider: Kevin Cortés Consult Reason/Comments: chf Do you want consulting provider notified?: Yes 08/20/24 10:50 Consult Physician Routine Consulting Provider: Mary Barr Consult Reason/Comments: Right lower extremity cellulitis Do you want consulting provider notified?: Yes Primary care physician: Gera Rodriges Hospital Course: Discharge Diagnosis: # Acute on chronic systolic congestive heart failure exacerbation #Acute hypoxemic respiratory failure secondary to above #Cardiorenal syndrome, baseline creatinine is 2.75, currently 2.80 #Ischemic cardiomyopathy with ejection fraction of 15 to 20% #Elevated troponin I secondary to type II NSTEMI secondary to above #Type 2 diabetes mellitus #Right lower extremity cellulitis Hospital Course: 79-year-old male with history of atrial fibrillation on Eliquis, CAD status post CABG, CHF, ischemic cardiomyopathy with ejection fraction of 15 to 20%, type 2 diabetes, hypertension, CKD stage IV came to the ER via EMS with concerns for bilateral lower extremity edema and exertional dyspnea getting progressively worse from couple weeks. Patient was recently hospitalized and was treated for acute on chronic congestive heart failure exacerbation and KATIE. Patient reports that he continued to experience worsening bilateral leg edema and exertional dyspnea after he was discharged and he finally decided to come to the hospital for further evaluation. Patient reports cough which is mildly productive, orthopnea, PND. He also noticed redness and erythema with some pain in his right lower extremity since 2 weeks. Patient reports that his urine output has mildly decreased. He denies any chest pain but reports fatigue and dizziness. He reports no fall episodes. Laboratory evaluation in the ER shows WBC 6.46, hemoglobin 10.4, hematocrit 32.8, MCV 99.4, platelet count 156, PT 13.8, INR 1.3, APTT 31.1, sodium 140, potassium 2.7, chloride 108, bicarb 19, BUN 58, creatinine 2.75, EGFR 21, glucose 177, troponin high 0.045, 0.039, 0.02, NT proBNP 98033. Chest x-ray shows bilateral pleural effusions with pulmonary vascular congestion. EKG shows atrial fibrillation with ventricular rate of 65 bpm, QRS duration 102, QTc [address]-T wave changes noted. Vital signs on arrival shows temperature of 98.0 F, pulse rate of 70, respiratory rate 24, blood pressure 120/69, oxygen saturation 99% on 2 L via nasal cannula. 08/20. Patient seen and examined. Labs reviewed showed WBC 5.58, hemoglobin 0.2, platelet count 120, sodium 140, potassium 3.7, BUN 63, creatinine 2.74. Still has swelling of lower extremities 08/21/2024 Patient seen and examined at the bedside. No acute events overnight. Patient continues to feel mildly short of breath. Still has mild swelling in the legs. Currently on IV antibiotics for lower extremity cellulitis. Sodium 141, potassi um 4.6, BUN 69, creatinine 2.81. Fluid balance is positive. 08/22/2024 Patient seen and examined at bedside. No acute events overnight. Patient continues to feel mildly short of breath. Continues to endorse mild swelling of the legs but reports overall feeling better compared to how he presented initially. Patient continues to be on IV cefazolin for her lower extremity cellulitis. Patient reports good urine output. Lab work shows WBC 6.43, hemoglobin 10.6, chemistry shows sodium 140, potassium 4.2, BUN 70, creatinine 2.94. Anticipated discharge tomorrow to subacute rehab. 08/23/2024 Patient seen and examined at the bedside. No acute events overnight. Patient still complaining of mild shortness of breath. Patient on 2 L of oxygen via nasal cannula. Repeat chest x-ray shows mild bilateral pleural effusion with vascular congestion. Patient to continue to be on oral Lasix twice daily. Will also assess oxygen requirement for home. Although he does report improvement in his leg edema. He continues to be on IV cefazolin for his lower extremity cellulitis. Patient reports good urine output. Sodium 137, potassium 4.1, BUN 69, creatinine 2.80. Anticipating discharge tomorrow to home with [facility]. 08/24/2024 Patient seen and examined at bedside. No acute events overnight. Patient reports that he feels better than yesterday. His urine output is good. Patient denies any shortness of breath. He does use oxygen intermittently. Patient will therefore be sent home on home oxygen as needed. Creatinine is stable between 2.5-2.9. Rest of lab work is acceptable. Patient is otherwise hemodynamically stable and medically optimized for discharge. Cardiology cleared patient for discharge. Patient to be discharged on Keflex 500 mg twice daily for 7 days for lower extremity cellulitis. DiaBeta has been discontinued in light of his poor ejection fraction and recurrent CHF exacerbation. Will add Invokana. Will add Aldactone. Metoprolol has been discontinued. Will add carvedilol. Otherwise patient to continue Flomax, Nitrostat, Eliquis, pravastatin and torsemide. Patient to follow-up with PCP within 1 week posthospital discharge. Repeat BMP within 1 to 3 days posthospital discharge. Patient is high risk for rehospitalization. Discharge disposition: Home with home care Vital signs reviewed. Gen: in no apparent distress, resting comfortably in bed Eyes: PERRLA, EOMI, no scleral injection or icterus HENT: normocephalic, atraumatic, good hearing acuity, moist mucous membranes Neck: full range of motion Resp: CTAB, no rales, rhonchi, or wheezes CVS: normal S1 and S2, no murmurs, rubs or gallops, 2+ bilateral lower extremity edema GI: soft, NTTP, ND, no hepatosplenomegaly : no suprapubic tenderness, no CVAT, calloway catheter [is/not] present MSK: no clubbing, no cyanosis, no noted contractures of extremities Skin: Carroll wrap on both lower extremities. Neuro: moving all extremities without signs of weakness, CN II-XII intact Psych: cooperative, euthymic mood, insight and judgment intact Dictation was produced using [employer] dictation software. Please excuse any grammatical, word or spelling errors. Attestation: I have seen and examined this patient with my resident, assessment and plan discussed with the resident, agree with assessment and plan as written above. Dr. Quach Plan - Discharge Summary Discharge Rx Participant: Yes New Discharge Prescriptions: New Aspirin 81 mg PO DAILY #30 tab Cephalexin [Keflex] 500 mg PO Q12HR 7 Days #14 cap Spironolactone [Aldactone] 25 mg PO DAILY #30 tab Canagliflozin [Invokana] 100 mg PO DAILY #30 tab carvediloL [Coreg] 6.25 mg PO BID-W/MEALS #60 tab Continue Tamsulosin HCl [Flomax] 0.4 mg PO BID Nitroglycerin Sl Tabs [Nitrostat] 0.4 mg SL Q5M PRN PRN Reason: Chest Pain Azelastine HCl [Astelin Nasal [place]] 1 spray EA NOSTRIL DAILY PRN PRN Reason: Allergy Symptoms Sodium Bicarbonate Tab 650 mg PO DAILY Apixaban [Eliquis] 2.5 mg PO BID Mv-Min/Folic/K1/Lycopen/Lutein [Centrum Silver Men Tablet] 1 tab PO DAILY Pravastatin Sodium [Pravachol] 40 mg PO HS Budesonide/Formoterol Fumarate [Symbicort 160-4.5 Mcg Inhaler] 1 puff INHALATION RT-QID Torsemide [Demadex] 20 mg PO BID Acetaminophen [Tylenol 8 Hour] 1,300 mg PO Q6H PRN PRN Reason: Pain Discontinued glyBURIDE [Diabeta] 2.5 mg PO Q3D amLODIPine [Norvasc] 5 mg PO DAILY Metoprolol Tartrate [Lopressor] 25 mg PO BID Potassium Chloride ER [K-Dur 10] 10 meq PO DAILY Discharge Medication List Nitroglycerin Sl Tabs [Nitrostat] 0.4 mg SL Q5M PRN 02/11/22 [History] Pravastatin Sodium [Pravachol] 40 mg PO HS 02/11/22 [History] Tamsulosin HCl [Flomax] 0.4 mg PO BID 02/11/22 [History] Budesonide/Formoterol Fumarate [Symbicort 160-4.5 Mcg Inhaler] 1 puff INHALATION RT-QID 06/05/22 [History] Apixaban [Eliquis] 2.5 mg PO BID 06/21/24 [History] Azelastine HCl [Astelin Nasal [place]] 1 spray EA NOSTRIL DAILY PRN 06/21/24 [History] Mv-Min/Folic/K1/Lycopen/Lutein [Centrum Silver Men Tablet] 1 tab PO DAILY 06/21/24 [History] Sodium Bicarbonate Tab 650 mg PO DAILY 06/21/24 [History] Acetaminophen [Tylenol 8 Hour] 1,300 mg PO Q6H PRN 08/18/24 [History] Torsemide [Demadex] 20 mg PO BID 08/18/24 [History] Aspirin 81 mg PO DAILY #30 tab 08/24/24 [Rx] Canagliflozin [Invokana] 100 mg PO DAILY #30 tab 08/24/24 [Rx] Cephalexin [Keflex] 500 mg PO Q12HR 7 Days #14 cap 08/24/24 [Rx] Spironolactone [Aldactone] 25 mg PO DAILY #30 tab 08/24/24 [Rx] carvediloL [Coreg] 6.25 mg PO BID-W/MEALS #60 tab 08/24/24 [Rx] Follow up Appointment(s)/Referral(s): Franklin Bright MD [STAFF PHYSICIAN] - 2 Weeks (PLease call to schedule appointment) Gera Rodriges III, MD [Primary Care Provider] - 1-2 days (PLease call to schedule appointment) [facility] [NON-STAFF] - Ambulatory/Diagnostic Orders: Basic Metabolic Panel [LAB.AMB] Time Frame: 3 Days, Facility: [facility], Location: [place] [address] Patient Instructions/Handouts: Heart Failure (DC), Low-Sodium Diet (DC) Activity/Diet/Wound Care/Special Instructions: Please follow-up with your PCP within 1 week posthospital discharge. Discharge/Stand Alone Forms: Who Do I Call?, Adult Foster Half-Way List, Assisted Living Facilities, Help In The Home Discharge Disposition: HOME WITH HOME HEALTH SERVICES
--- NOTE | 2024-08-24 15:17 | P.PN ---
Subjective Progress Note Date: 08/23/24 Principal diagnosis: Reason for follow-up is right lower extremity cellulitis Patient is a 79-year-old male past medical history significant for coronary artery disease heart failure with hypercapnia spondylitis hypertension prostate disorder atrial fibrillation presenting to the hospital for evaluation of increasing shortness of breath and lower extremity swelling with redness to the right leg and has been diagnosed with cellulitis prompted this consultation. On today's evaluation that is 08/23/2024, Patient is afebrile this morning patient denies having any chest pain or cough, the patient is currently on 2 L nasal oxygen, patient denies any abdominal pain no diarrhea no nausea no vomiting still complaining of swelling to lower extremity but no pain. White count was 6.4 as of yesterday no CBC was done today creatinine is 2.80 Objective - Vital Signs Vital signs: Vital Signs Temp 97.4 F L 08/23/24 11:57 Pulse 59 L 08/23/24 11:57 Resp 18 08/23/24 11:57 BP 119/71 08/23/24 11:57 Pulse Ox 96 08/23/24 11:57 FiO2 Intake & Output 08/22/24 08/23/24 08/23/24 18:59 06:59 18:59 Intake Total 486 500 250 Output Total 1575 Balance 486 -1075 250 Weight 77.1 kg Intake: IV 10 10 Invasive Line 1 10 10 Oral 476 500 240 Output: Urine 1575 Other: Voiding Method Toilet Toilet Toilet # Voids 3 - Exam GENERAL DESCRIPTION: An elderly male lying in bed in no distress RESPIRATORY SYSTEM: Unlabored breathing , decreased breath sounds at bases HEART: S1 S2 regular rate and rhythm , ABDOMEN: Soft , no tenderness EXTREMITIES: Leg currently wrapped in the Carroll wrap - Labs CBC & Chem 7: 08/22/24 06:40 08/24/24 05:28 Labs: Abnormal Lab Results - Last 24 Hours (Table) 08/22/24 08/22/24 08/23/24 Range/Units 16:40 20:09 06:00 BUN (9-20) mg/dL Creatinine (0.66-1.25) mg/dL Glucose (74-99) mg/dL POC Glucose (mg/dL) 52 L 136 H 114 H (70-110) mg/dL 08/23/24 Range/Units 06:04 BUN 69 H (9-20) mg/dL Creatinine 2.80 H (0.66-1.25) mg/dL Glucose 104 H (74-99) mg/dL POC Glucose (mg/dL) (70-110) mg/dL Assessment and Plan (1) Cellulitis of right leg Current Visit: Yes Status: Acute Code(s): L03.115 - CELLULITIS OF RIGHT LOWER LIMB SNOMED Code(s): 72227816456653861 (2) Allergy to multiple antibiotics Current Visit: Yes Status: Acute Code(s): Z88.1 - ALLERGY STATUS TO OTHER ANTIBIOTIC AGENTS SNOMED Code(s): 909488987 Plan: 1patient presented to the hospital with shortness of breath likely fluid overload in this patient also have evidence of bilateral lower extremity swelling with more erythema to the right leg concerning for cellulitis likely from gram-positive skin regi in this patient with evidence of fluid overload and likely streptococcal disease 2-patient with multiple antibiotic ALLERGIES that would limit the number of antibiotic safe to use 3-patient is afebrile white count has been normal we will continue with cefazolin Carroll wrap to the leg while inpatient Dictation was produced using [employer] dictation software. please excuse any grammatical, word or spelling errors. Time with Patient: Less than 30
--- NOTE | 2024-08-24 15:18 | P.PN ---
Subjective Progress Note Date: 08/24/24 Principal diagnosis: Reason for follow-up is right lower extremity cellulitis Patient is a 79-year-old male past medical history significant for coronary artery disease heart failure with hypercapnia spondylitis hypertension prostate disorder atrial fibrillation presenting to the hospital for evaluation of increasing shortness of breath and lower extremity swelling with redness to the right leg and has been diagnosed with cellulitis prompted this consultation. On today's evaluation that is 08/24/2024,the patient denies any fever or any chills, patient is breathing comfortably on 2 L nasal oxygen, the patient denies chest pain and no significant cough, patient denies abdominal pain, no nausea vomiting or diarrhea. Denies pain to the lower extremity. Patient did have a creatinine of 2.92 Objective - Vital Signs Vital signs: Vital Signs Temp 98.0 F 08/24/24 04:00 Pulse 71 08/24/24 11:21 Resp 18 08/24/24 11:21 BP 121/63 08/24/24 11:21 Pulse Ox 96 08/24/24 11:21 FiO2 Intake & Output 08/23/24 08/24/24 08/24/24 18:59 06:59 18:59 Intake Total 496 20 400 Output Total 325 Balance 496 -305 400 Weight 76.7 kg Intake: IV 20 20 Invasive Line 1 20 20 Oral 476 400 Output: Urine 325 Other: Voiding Method Toilet Toilet - Exam GENERAL DESCRIPTION: An elderly male lying in bed in no distress RESPIRATORY SYSTEM: Unlabored breathing , decreased breath sounds at bases HEART: S1 S2 regular rate and rhythm , ABDOMEN: Soft , no tenderness EXTREMITIES: Leg currently wrapped in the Carroll wrap - Labs CBC & Chem 7: 08/22/24 06:40 08/24/24 05:28 Labs: Abnormal Lab Results - Last 24 Hours (Table) 08/23/24 08/23/24 08/24/24 Range/Units 16:56 19:57 03:57 Sodium (137-145) mmol/L BUN (9-20) mg/dL Creatinine (0.66-1.25) mg/dL Glucose (74-99) mg/dL POC Glucose (mg/dL) 171 H 113 H 65 L (70-110) mg/dL 08/24/24 08/24/24 08/24/24 Range/Units 05:28 06:00 11:25 Sodium 136 L (137-145) mmol/L BUN 79 H (9-20) mg/dL Creatinine 2.92 H (0.66-1.25) mg/dL Glucose 105 H (74-99) mg/dL POC Glucose (mg/dL) 116 H 204 H (70-110) mg/dL Assessment and Plan (1) Cellulitis of right leg Current Visit: Yes Status: Acute Code(s): L03.115 - CELLULITIS OF RIGHT LOWER LIMB SNOMED Code(s): 01786808779002537 (2) Allergy to multiple antibiotics Current Visit: Yes Status: Acute Code(s): Z88.1 - ALLERGY STATUS TO OTHER ANTIBIOTIC AGENTS SNOMED Code(s): 791544643 Plan: 1patient presented to the hospital with shortness of breath likely fluid overl oad in this patient also have evidence of bilateral lower extremity swelling with more erythema to the right leg concerning for cellulitis likely from gram- positive skin regi in this patient with evidence of fluid overload and likely streptococcal disease 2-patient with multiple antibiotic ALLERGIES that would limit the number of antibiotic safe to use 3-patient is afebrile white count has been normal 4patient advised to continue Carroll wrap to the leg to keep swelling down and a short course of oral Keflex on discharge Dictation was produced using [employer] dictation software. please excuse any grammatical, word or spelling errors.
== END 2024-08-24 15:30 | disposition home health service (06) | DRG 280 ==
LOC: SUPCPDRO 13:37 → EC 13:37 → 3SCARD 15:39
PROVIDERS: ADMIT Internal Medicine; ATTEND Internal Medicine
DX: I13.0 Hypertensive heart and chronic kidney disease with heart failure and stage 1 through stage 4 chronic kidney disease, or unspecified chronic kidney disease (principal); I50.23 Acute on chronic systolic (congestive) heart failure; I21.A1 Myocardial infarction type 2; J96.01 Acute respiratory failure with hypoxia; N18.4 Chronic kidney disease, stage 4 (severe); E11.22 Type 2 diabetes mellitus with diabetic chronic kidney disease; I08.3 Combined rheumatic disorders of mitral, aortic and tricuspid valves; I48.19 Other persistent atrial fibrillation; L03.115 Cellulitis of right lower limb; Z95.1 Presence of aortocoronary bypass graft; I25.5 Ischemic cardiomyopathy; I25.10 Atherosclerotic heart disease of native coronary artery without angina pectoris; Z88.1 Allergy status to other antibiotic agents; E78.5 Hyperlipidemia, unspecified; Z79.01 Long term (current) use of anticoagulants; Z79.51 Long term (current) use of inhaled steroids; Z79.84 Long term (current) use of oral hypoglycemic drugs; Z79.899 Other long term (current) drug therapy; Z88.8 Allergy status to other drugs, medicaments and biological substances; Z90.49 Acquired absence of other specified parts of digestive tract
CPT/HCPCS: 36415; 71045; 71046; 80048; 80053; 83036; 83605; 83735; 83880; 84484; 85025; 85610; 85730; 93005; 94640; 94760; 96374; 99285